=== PATIENT | female | born 1935 | race Hispanic/Latino ===

== ENCOUNTER 2016-10-10 11:16 | Inpatient (IN) | payer MEDICARE, MEDICAID ==
[2016-10-10] MEDS ORDERED: Cefepime 1gm in NS 100ml 1 GM/100 ML BAG IVPB STA (11:57)
--- NOTE | 2016-10-10 12:16 | ED PDOC ---
Arrival/HPI - General Time Seen by Provider: 10/10/16 11:49 Historian: Patient - History of Present Illness Narrative History of Present Illness (Text): 10/10/16 12:18 An 81 year old female, whose past medical history includes diabetes, was advised to come to the emergency department by Dr. Sparks from [facility] for infected wound. Patient reports she is not on antibiotics yet. Patient denies any fever or any other complaints at this time. Symptom Onset: Sudden Symptom Course: Unchanged Activities at Onset: Rest Context: Other ([facility]) Past Medical History - Provider Review Nursing Documentation Reviewed: Yes - Infectious Disease Hx of Infectious Diseases: None - Tetanus Immunization Tetanus Immunization: Unknown - Cardiac Hx Pacemaker: No - Pulmonary Hx Respiratory Disorders: Yes - Neurological Hx Paralysis: No - HEENT Hx HEENT Disorder: Yes Hx Cataracts: Yes (BILATERAL SURGERY) - Renal Hx Renal Disorder: Yes Hx Neurogenic Bladder: Yes - Endocrine/Metabolic Hx Endocrine Disorders: Yes - Hematological/Oncological Hx Blood Transfusions: No Hx Blood Transfusion Reaction: No - Integumentary Hx Dermatological Disorder: Yes (CELLULITIS,LEFT VENOUS STASIS ULCER) Other/Comment: cellulitis left ankle wound, left foot red and +2 edema, foul smelling dng noted to left ankle wound - Musculoskeletal/Rheumatological Hx Musculoskeletal Disorders: Yes - Gastrointestinal Hx Gastrointestinal Disorders: Yes Hx Gastroesophageal Reflux: Yes - Genitourinary/Gynecological Hx Genitourinary Disorders: Yes (URGENCY) - Psychiatric Hx Emotional Abuse: No Hx Physical Abuse: No Hx Substance Use: No - Past Surgical History Past Surgical History: Non-Contributing - Surgical History Other/Comment: LEFT FOOT SURGERY,PICC 01-09-14 - Anesthesia Hx Anesthesia Reactions: No Hx Malignant Hyperthermia: No - Suicidal Assessment Feels Threatened In Home Enviroment: No Family/Social History - Physician Review Nursing Documentation Reviewed: Yes Family/Social History: No Known Family HX Smoking Status: Former Smoker Hx Alcohol Use: No Hx Substance Use: No Hx Substance Use Treatment: No Allergies/Home Meds Allergies/Adverse Reactions: Allergies banana Allergy (Verified 12/06/15 18:49) RASH Influenza Virus Vaccines Allergy (Verified 12/06/15 18:49) RASH kiwi Allergy (Verified 12/06/15 18:49) RASH Penicillins Allergy (Verified 12/06/15 18:49) RASH pneumococcal vaccine Allergy (Verified 12/06/15 18:49) RASH strawberry Allergy (Verified 12/06/15 18:49) RASH Sulfa (Sulfonamide Antibiotics) Allergy (Verified 12/06/15 18:49) RASH tomato Allergy (Verified 12/06/15 18:49) RASH Home Medications: Home Meds Medication Instructions Recorded Confirmed Insulin Lispro Mix 75/25 [HumaLOG 10 units SC ACB 06/15/13 06/28/16 Mix 75/25] Vitamin B Complex/Vit C/Folic 1 tab PO DAILY 08/25/15 06/28/16 [Nephro-Shereen] Insulin Lispro Mix 75/25 [HumaLOG 5 units SC ACD 10/04/15 06/28/16 Mix 75/25] Protein Supplement [Prosource] 30 ml PO BID 10/04/15 06/28/16 Review of Systems - Physician Review All systems were reviewed & negative as marked: Yes - Review of Systems Constitutional: absent: Fevers Respiratory: absent: SOB Cardiovascular: absent: Chest Pain Skin: Ulcer (distal lower leg to mid upper leg) Physical Exam Vital Signs Reviewed: Yes Vital Signs Temp Pulse Resp BP Pulse Ox 10/10/16 11:38 97.6 F 79 18 119/80 98 Temperature: Afebrile Blood Pressure: Normal Pulse: Regular Respiratory Rate: Normal Appearance: Positive for: Well-Appearing, Non-Toxic, Comfortable Pain Distress: None Mental Status: Positive for: Alert and Oriented X 3 - Systems Exam Head: Present: Atraumatic, Normocephalic Pupils: Present: PERRL Extroacular Muscles: Present: EOMI Conjunctiva: Present: Normal Mouth: Present: Moist Mucous Membranes Neck: Present: Normal Range of Motion Respiratory/Chest: Present: Clear to Auscultation, Good Air Exchange. No: Respiratory Distress, Accessory Muscle Use Cardiovascular: Present: Regular Rate and Rhythm, Normal S1, S2. No: Murmurs Abdomen: Present: Normal Bowel Sounds. No: Tenderness, Distention, Peritoneal Signs Back: Present: Normal Inspection Upper Extremity: Present: Normal Inspection. No: Cyanosis, Edema Lower Extremity: Present: Other (large ulcer extending from distal lower leg to mid upper leg). No: Edema Neurological: Present: GCS=15, CN II-XII Intact, Speech Normal Skin: Present: Warm, Dry, Normal Color. No: Rashes Psychiatric: Present: Alert, Oriented x 3, Normal Insight, Normal Concentration Medical Decision Making ED Course and Treatment: 10/10/16 12:13 Impression: An 81 year old female with an infected wound. Plan: -- labs -- Maxipime -- Reassess and disposition Prior Visits: Notes and results from previous visits were reviewed. Patient last reported to the emergency department on 03/27/16 for evaluation of head injury s/p fall at home. Patient was discharged. Progress Notes: Patient's medical records reports wounds Protens and Serratia sensitive to tigecycline 10/10/16 15:[address] lorenzo - Lab Interpretations Lab Results: 10/10/16 11:43 10/10/16 14:00 Lab Results 10/10/16 14:00: Sodium 134, Potassium 4.9, Chloride 105, Carbon Dioxide 23, Anion Gap 11, BUN 45 H, Creatinine 1.1, Est GFR ( Amer) 57, Est GFR (Non- Af Amer) 47, Random Glucose 212 H, Calcium 8.5, Total Bilirubin 0.5, AST 50 H, ALT 30, Alkaline Phosphatase 169 H, Total Protein 7.2, Albumin 3.3, Globulin 4.0 , Albumin/Globulin Ratio 0.8 L 10/10/16 11:43: PT 12.0 H, INR 1.11 H, APTT 26.1 10/10/16 11:43: WBC 7.9, RBC 3.94, Hgb 11.4 L, Hct 35.7 L, MCV 90.6, MCH 28.9, MCHC 31.9, RDW 15.8 H, Plt Count 255, MPV 12.2 H, Gran % 77.2 H, Lymph % (Auto) 15.0 L, [place] % (Auto) 5.9, Eos % (Auto) 1.4 L, Baso % (Auto) 0.5, Gran # 6.12, Lymph # 1.2, [place] # 0.5, Eos # 0.1, Baso # 0.04, ESR 50 H I have reviewed the lab results: Yes - Medication Orders Current Medication Orders: Discontinued Medications Cefepime HCl (Maxipime 1gm) 1 gm in 100 mls @ 100 mls/hr IVPB STAT STA PRN Reason: Protocol Stop: 10/10/16 12:56 Last Admin: 10/10/16 12:31 Dose: 100 mls/hr Tigecycline 50 mg/ Sodium (Chloride) 100 mls @ 100 mls/hr IVPB STAT STA PRN Reason: Protocol Stop: 10/10/16 13:35 Last Admin: 10/10/16 13:57 Dose: 100 mls/hr - Scribe Statement The provider has reviewed the documentation as recorded by the Dione Mario Provider Scribe Attestation: All medical record entries made by the Lizibmariangel were at my direction and personally dictated by me. I have reviewed the chart and agree that the record accurately reflects my personal performance of the history, physical exam, medical decision making, and the department course for this patient. I have also personally directed, reviewed, and agree with the discharge instructions and disposition. Disposition/Present on Arrival - Present on Arrival Any Indicators Present on Arrival: No History of DVT/PE: No History of Uncontrolled Diabetes: No Urinary Catheter: No History Surgical Site Infection Following: None - Disposition Have Diagnosis and Disposition been Completed?: Yes Diagnosis: Cellulitis, Diabetic leg ulcer Disposition: HOSPITALIZED Disposition Time: 02:00 Patient Problems: Current Active Problems Problem Status Onset Cellulitis Acute Diabetic leg ulcer Acute Condition: FAIR
[2016-10-10 12:31] LABS: ADD MANUAL DIFF? NO
[2016-10-10 12:36] LABS: BASO # 0.04 K/mm3 (0.0-2.0); BASO % 0.5 % (0.0-3.0); EOS # 0.1 (0.0-0.7); EOS % 1.4 % (1.5-5.0); GRAN # 6.12 (1.4-6.5); GRAN % 77.2 % (50.0-68.0); HEMATOCRIT 35.7 % (36.0-48.0); LYMPH # 1.2 (1.2-3.4); MEAN CELL VOLUME 90.6 fL (80.0-105.0); MEAN CORPUSCULAR HEMOGLOBIN 28.9 pg (25.0-35.0); MEAN CORPUSCULAR HGB CONC 31.9 g/dl (31.0-37.0); MEAN PLATELET VOLUME 12.2 fl (7.0-11.0); MONO # 0.5 (0.1-0.6); MONO % 5.9 % (1.0-6.0); PLATELET COUNT 255 10^3/uL (120.0-450.0); RED CELL DISTRIBUTION WIDTH 15.8 % (11.5-14.5); WHITE BLOOD COUNT 7.9 10^3/ul (4.5-11.0)
[2016-10-10 12:43] LABS: INR 1.11 (0.93-1.08); PARTIAL THROMBOPLASTIN TIME 26.1 Seconds (23.7-30.8)
[2016-10-10 13:56] LABS: ERYTHROCYTE SEDIMENTATION RATE 50 mm/hr (0.0-20.0)
[2016-10-10 14:29] LABS: ALB/GLOB RATIO 0.8 (1.1-1.8); BILIRUBIN,TOTAL 0.5 mg/dL (0.2-1.3); CALCIUM 8.5 mg/dL (8.4-10.5); POTASSIUM 4.9 mmol/L (3.6-5.0); TOTAL PROTEIN 7.2 g/dL (5.8-8.3)
[2016-10-10] MEDS ORDERED: Heparin25000 units/250ml 1/2NS 25,000 UNITS/250 ML BAG IV PRN (16:05)
[2016-10-10] MEDS: Insulin Lispro (humaLOG) MEDIUM Coverage SC SCH (16:55)
--- NOTE | 2016-10-10 17:03 | CP.PCM.HP ---
<Gwyn Krause - Last Filed: 10/10/16 16:56> History of Present Illness - History of Present Illness History of Present Illness: Internal Medicine H&P for Dr. Lona Krause PGY-1 Internal Medicine CC: LLE ulcer + cellulitis HPI: This is an 81 yo F with PMH of HTN, COPD, DM, AFib/Sick Sinus s/ p pacer on AC, and chronic non-healing LLE vascular ulcer who was sent from [facility] by PMD (Dr. Sparks) for LLE cellulitis found to have Serratia and Proteus spp sensitive to tygacil. Per patient, she has no pain in the affected leg, but also reports that she never has had pain in the leg despite the chronic poorly healing ulcer. She denies sensation of fevers/chills, nausea/ emesis, cough, shortness of breath, chest pain, dysuria/hematuria, constipation/ diarrhea, or altered ambulation. She reports her normal ambulation is either in a wheelchair she moves herself, or with a walker. Denies all other complaints. She is seen weekly (Wednesdays) at the [facility] by Dr. Shan Mckeon (Podiatry). Of note, the patient reports that she is considering pursuing elective BKA of the LLE, stating that she is tired of dealing with the chronic poorly healing ulcer and it's sequella, as it has been plaguing her "forever" (unclear on actual time affected by ulcer other than > 5 years). 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 She denies thoughts of self-harm. PMH: As above PSH: Bilateral cataract removal, Pacer placement, Unspecified prior foot surgeries, Prior surgical wound debridement FHx: Denies SHx: Denies prior tobacco, alcohol, illicits PMD: Dr. Sparks Soup Person: Dr. Shan Mckeon Present on Admission - Present on Admission Any Indicators Present on Admission: No History of DVT/PE: No History of Uncontrolled Diabetes: No Urinary Catheter: No Review of Systems - Constitutional Constitutional: absent: Chills, Fever, Weakness - EENT Eyes: absent: Blurred Vision, Change in Vision, Loss of Vision Ears: absent: Dizziness Nose/Mouth/Throat: absent: Sore Throat, Neck Pain - Cardiovascular Cardiovascular: absent: Chest Pain, Dyspnea, Pain Radiating to Arm/Neck/Jaw, Lightheadedness, Palpitations, Rapid Heart Rate, Syncope - Respiratory Respiratory: absent: Cough, Dyspnea, Pain on Inspiration - Gastrointestinal Gastrointestinal: absent: Abdominal Pain, Constipation, Diarrhea, Nausea, Vomiting - Genitourinary Genitourinary: absent: Difficulty Urinating, Dysuria, Flank Pain, Hematuria - Musculoskeletal Musculoskeletal: Abnormal Gait (baseline alterred gait, hunched 2/2 walker use, now walker/wheelchair dependant). absent: Back Pain, Numbness - Integumentary Additional comments: Non-healing LLE wound with concurrent cellulitis - Neurological Neurological: absent: Disequilibrium, Dizziness, Numbness, Focal Weakness, Loss of Vision, Syncope, Weakness, Other Visual Disturbances - Psychiatric Psychiatric: absent: Anxiety - Endocrine Endocrine: absent: Fatigue, Palpitations Past Patient History - Infectious Disease Hx of Infectious Diseases: None - Tetanus Immunizations Tetanus Immunization: Unknown - Past Medical History & Family History Past Medical History?: Yes - Past Social History Smoking Status: Former Smoker - CARDIAC Hx Pacemaker: No - PULMONARY Hx Respiratory Disorders: Yes - NEUROLOGICAL Hx Paralysis: No - HEENT Hx HEENT Problems: Yes Hx Cataracts: Yes (BILATERAL SURGERY) - RENAL Hx Chronic Kidney Disease: Yes Hx Neurogenic Bladder: Yes - ENDOCRINE/METABOLIC Hx Endocrine Disorders: Yes - HEMATOLOGICAL/ONCOLOGICAL Hx Blood Transfusions: No Hx Blood Transfusion Reaction: No - INTEGUMENTARY Hx Dermatological Problems: Yes (CELLULITIS,LEFT VENOUS STASIS ULCER) Other/Comment: cellulitis left ankle wound, left foot red and +2 edema, foul smelling dng noted to left ankle wound - MUSCULOSKELETAL/RHEUMATOLOGICAL Hx Musculoskeletal Disorders: Yes - GASTROINTESTINAL Hx Gastrointestinal Disorders: Yes Hx Gastroesophageal Reflux: Yes - GENITOURINARY/GYNECOLOGICAL Hx Genitourinary Disorders: Yes (URGENCY) - PSYCHIATRIC Hx Emotional Abuse: No Hx Physical Abuse: No Hx Substance Use: No - SURGICAL HISTORY Other/Comment: LEFT FOOT SURGERY,PICC 01-09-14 - ANESTHESIA Hx Anesthesia Reactions: No Hx Malignant Hyperthermia: No Meds Allergies/Adverse Reactions: Allergies Allergy/AdvReac Type Severity Reaction Status Date / Time banana Allergy RASH Verified 12/06/15 18:49 Influenza Virus Vaccines Allergy RASH Verified 12/06/15 18:49 kiwi Allergy RASH Verified 12/06/15 18:49 Penicillins Allergy RASH Verified 12/06/15 18:49 pneumococcal vaccine Allergy RASH Verified 12/06/15 18:49 strawberry Allergy RASH Verified 12/06/15 18:49 Sulfa (Sulfonamide Allergy RASH Verified 12/06/15 18:49 Antibiotics) tomato Allergy RASH Verified 12/06/15 18:49 Physical Exam - Constitutional Appears: Well, Non-toxic, No Acute Distress - Head Exam Head Exam: ATRAUMATIC, NORMAL INSPECTION, NORMOCEPHALIC - Eye Exam Eye Exam: EOMI, Normal appearance. absent: Conjunctival injection, Scleral icterus Pupil Exam: absent: Irregular, Unequal - ENT Exam ENT Exam: Mucous Membranes Moist - Neck Exam Neck exam: Positive for: Full Rom, Normal Inspection - Respiratory Exam Respiratory Exam: Clear to Auscultation Bilateral, NORMAL BREATHING PATTERN. absent: Accessory Muscle Use, Chest Wall Tenderness, Decreased Breath Sounds, Rales, Rhonchi, Wheezes - Cardiovascular Exam Cardiovascular Exam: Tachycardia (tachycardic to 110's (per bedside monitor) during exam), REGULAR RHYTHM, +S1, +S2. absent: Bradycardia, Diastolic murmur, Irregular Rhythm, JVD, +S4, Systolic Murmur - GI/Abdominal Exam GI & Abdominal Exam: Normal Bowel Sounds, Soft. absent: Diminished Bowel Sounds , Distended, Firm, Hyperactive Bowel Sounds, Hypoactive Bowel Sounds, Rigid, Tenderness - Extremities Exam Additional comments: RLE exam: Unremarkable, poorly palpable dorsalis pedis pulse LLE exam: -Diffuse cellulitis extending from 2-3 cm behind toes to bottom 2/3rd of leg below knee, incompletely circumferential around LLE (2+ inches from posterior midline clear) -No tenderness to palpation, but sensation to palpation intact and equal in both legs -Bandaging from mid foot (dorsal surface) up to midpoint between ankle and knee , some faint yellow drainage through bandaging -wrinkled wax paper appearance of cellulitic skin, waxy appearance of skin above cellulitic area still below knee -palpable warmth from foot, extending past cellulitis area, terminating ~2-3cm below patellar tendon; warmer compared to palpation of identical (non-cellulitic ) sites of RLE -LLE weeping clear fluid at cellulitic area -able to faintly palpate L leg popliteal pulse, unable to palpate any more distal pulses in LLE - Neurological Exam Neurological exam: Alert, Oriented x3 - Psychiatric Exam Psychiatric exam: Normal Affect, Normal Mood - Skin Additional comments: Other than as described in Extremities exam, skin is dry/intact/normal temp on palpation/normal color Results - Vital Signs Recent Vital Signs: Last Vital Signs Temp 97.6 F 10/10/16 11:38 Pulse 78 10/10/16 13:02 Resp 16 10/10/16 13:02 BP 120/82 10/10/16 13:02 Pulse Ox 96 10/10/16 13:02 - Labs Result Diagrams: 10/10/16 11:43 10/10/16 14:00 Assessment & Plan - Assessment and Plan (Free Text) Assessment: This is an 81 yo F with PMH of HTN, COPD, DM, AFib/Sick Sinus s/p pacer on AC, and chronic non-healing LLE vascular ulcer who was sent from [facility] by PMD (Dr. Sparks) for LLE cellulitis found to have Serratia and Proteus spp sensitive to tygacil. She is being admitted for IV abx and possible wound debridement/care. Plan: 1) LLE wound with concurrent cellulitis -Sent from [facility] with cultures + for Serratia and Proteus, sensitive to Tygacil -Tygacil q12 ordered, got x1 dose in ED and 1 dose of Cefepime in ED -ID consulted (Dr. Alvares), appreciate all recs -New wound cultures, blood cultures, lactic acid ordered, f/u -LLE foot, ankle, tibia-fibula, and knee x-rays ordered, want to assess for possible osteo -Wound care ordered -Podiatry (Dr. 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 Patient seen, reviewed, and discussed with attending, Dr. Zamorano. - Date & Time Date: 10/10/16 Time: 15:30 Decision To Admit - Pt Status Changed To: Hospital Disposition Of: Inpatient Admission - Admit Certification Admit to Inpatient:: After my assessment, the patient will require hospitalization for at least two midnights. This is because of the severity of symptoms shown, intensity of services needed, and/or the medical risk in this patient being treated as an outpatient. - . Bed Request Type: Med/Surg <Mary Kay Zamorano - Last Filed: 10/11/16 07:42> Results - Vital Signs Recent Vital Signs: Last Vital Signs Temp 97.8 F 10/10/16 16:00 Pulse 84 10/10/16 19:49 Resp 20 10/11/16 06:00 BP 132/62 10/10/16 19:49 Pulse Ox 97 10/10/16 16:00 - Labs Result Diagrams: 10/11/16 06:30 10/11/16 06:30 Labs: Laboratory Results - last 24 hr 10/10/16 10/11/16 10/11/16 20:20 01:35 06:30 WBC 8.5 RBC 3.72 Hgb 10.2 L Hct 33.1 L MCV 89.0 MCH 27.4 MCHC 30.8 L RDW 16.0 H Plt Count 206 MPV 11.2 H Gran % 71.6 H Lymph % (Auto) 18.3 L [place] % (Auto) 9.1 H Eos % (Auto) 0.6 L Baso % (Auto) 0.4 Gran # 6.12 Lymph # 1.6 [place] # 0.8 H Eos # 0.1 Baso # 0.03 PT 13.4 H INR 1.24 H APTT 148.0 H* Sodium Potassium Chloride Carbon Dioxide Anion Gap BUN Creatinine Est GFR ( Amer) Est GFR (Non-Af Amer) Random Glucose Lactic Acid 1.3 Calcium Phosphorus Magnesium Total Bilirubin AST ALT Alkaline Phosphatase Total Protein Albumin Globulin Albumin/Globulin Ratio 10/11/16 10/11/16 06:30 06:30 WBC RBC Hgb Hct MCV MCH MCHC RDW Plt Count MPV Gran % Lymph % (Auto) [place] % (Auto) Eos % (Auto) Baso % (Auto) Gran # Lymph # [place] # Eos # Baso # PT 13.6 H INR 1.26 H APTT 109.0 H* Sodium 138 Potassium 4.5 Chloride 111 H Carbon Dioxide 23 Anion Gap 9 L BUN 39 H Creatinine 0.9 Est GFR ( Amer) > 60 Est GFR (Non-Af Amer) 60 Random Glucose 118 H Lactic Acid Calcium 7.9 L Phosphorus 4.3 Magnesium 2.0 Total Bilirubin 0.5 AST 34 ALT 32 Alkaline Phosphatase 145 H Total Protein 6.1 Albumin 2.7 L Globulin 3.4 Albumin/Globulin Ratio 0.8 L Attending/Attestation - Attestation I have personally seen and examined this patient.: Yes I have fully participated in the care of the patient.: Yes I have reviewed all pertinent clinical information: Yes Notes (Text): 10/10/16 81 year old female with past medical history of COPD, hypertension, afib, sick sinus syndrome, s/p pacemaker, diabetes and chronic non healing left lower extremity ulcer who was sent from nursing for LLE cellulitis and non-healing ulcer. Wound cultures grew Serratia and Proteus which is sensitive to tygacil. Will continue and request ID and podiatry evaluation. ESR/CRP are elevated. Xrays are ordered. Wound care. Continue with home medications for hypertension and afib, except eliquis which will be switched to heparin drip in case of any planned procedure. Continue with insulin ss for diabetes and lyrica for diabetes neuropathy. Mary Kay Zamorano MD Hospitalist.
[2016-10-10] MEDS ORDERED: PROTEIN SUPPLEMENT PO SCH (18:00)
--- NOTE | 2016-10-10 20:44 | CP.PCM.CON ---
History of Present Illness - History of Present Illness History of Present Illness: Infectious Disease Consultation: October 10, 2016 81 yo female well known to me sent from [facility] for Left lower leg cellulitis. Cultures at [facility] showing Serratia with sensitivities to Tygacil. Patient has had similar episodes in the past. PMHx: gout, COPD, hypertension, diabetes mellitus, hypothyroidism, COPD PSHx: Multiple debridements of the left leg and foot Allergies: PCN, SULFA Social Hx: custodial resident of [facility]. No known tobacco, EtOH, or illicit drug use. Active Medications Tigecycline 50 mg/ Sodium (Chloride) 100 mls @ 100 mls/hr IVPB Q12 KEO PRN Reason: Protocol Stop: 10/10/16 22:59 Heparin Sodium/Sodium Chloride (Heparin 45569 Units/250ml 1/2 Normal Saline) 25 ,000 units in 250 mls @ 14.4 mls/hr IV .[id number] PRN; Protocol; 18 UNITS/KG/HR PRN Reason: ADJUST RATE PER PROTOCOL Last Admin: 10/10/16 19:16 Dose: 18 units/kg/hr, 14.4 mls/hr Sodium Chloride (Sodium Chloride 0.9%) 1,000 mls @ 70 mls/hr IV .[id number] [facility] Insulin Human Lispro (Humalog Med) 0 units SC ACHS KEO PRN Reason: Protocol Last Admin: 10/10/16 16:55 Dose: Not Given Metoprolol Tartrate (Lopressor) 25 mg PO BID [facility] Last Admin: 10/10/16 19:49 Dose: 25 mg Montelukast Sodium (Singulair) 10 mg PO HS [facility] Non-Formulary Medication (Protein Supplement [Prosource]) 30 ml PO BID [facility] Pregabalin (Lyrica) 25 mg PO BID [facility] Last Admin: 10/10/16 19:48 Dose: 25 mg Vitamin B Complex/Vit C/Folic Acid (Nephro-Shereen) 1 tab PO DAILY [facility] Family Hx: none given ROS: no fevers, chills, cough, nausea, vomiting, diarrhea, headaches, dizziness, chest pain, abdominal pain, depression, anxiety, melena, hematura, hematemesis, hematochezia. Left leg swelling and lymphedema. Past Patient History - Infectious Disease Hx of Infectious Diseases: None - Tetanus Immunizations Tetanus Immunization: Unknown - Past Medical History & Family History Past Medical History?: Yes - Past Social History Smoking Status: Former Smoker - CARDIAC Hx Pacemaker: No - PULMONARY Hx Respiratory Disorders: Yes - NEUROLOGICAL Hx Paralysis: No - HEENT Hx HEENT Problems: Yes Hx Cataracts: Yes (BILATERAL SURGERY) - RENAL Hx Chronic Kidney Disease: Yes Hx Neurogenic Bladder: Yes - ENDOCRINE/METABOLIC Hx Endocrine Disorders: Yes - HEMATOLOGICAL/ONCOLOGICAL Hx Blood Transfusions: No Hx Blood Transfusion Reaction: No - INTEGUMENTARY Hx Dermatological Problems: Yes (CELLULITIS,LEFT VENOUS STASIS ULCER) Other/Comment: cellulitis left ankle wound, left foot red and +2 edema, foul smelling dng noted to left ankle wound - MUSCULOSKELETAL/RHEUMATOLOGICAL Hx Musculoskeletal Disorders: Yes - GASTROINTESTINAL Hx Gastrointestinal Disorders: Yes Hx Gastroesophageal Reflux: Yes - GENITOURINARY/GYNECOLOGICAL Hx Genitourinary Disorders: Yes (URGENCY) - PSYCHIATRIC Hx Emotional Abuse: No Hx Physical Abuse: No Hx Substance Use: No - SURGICAL HISTORY Other/Comment: LEFT FOOT SURGERY,PICC 01-09-14 - ANESTHESIA Hx Anesthesia Reactions: No Hx Malignant Hyperthermia: No Meds Allergies/Adverse Reactions: Allergies Allergy/AdvReac Type Severity Reaction Status Date / Time banana Allergy RASH Verified 12/06/15 18:49 Influenza Virus Vaccines Allergy RASH Verified 12/06/15 18:49 kiwi Allergy RASH Verified 12/06/15 18:49 Penicillins Allergy RASH Verified 12/06/15 18:49 pneumococcal vaccine Allergy RASH Verified 12/06/15 18:49 strawberry Allergy RASH Verified 12/06/15 18:49 Sulfa (Sulfonamide Allergy RASH Verified 12/06/15 18:49 Antibiotics) tomato Allergy RASH Verified 12/06/15 18:49 - Medications Medications: Current Medications Tigecycline 50 mg/ Sodium (Chloride) 100 mls @ 100 mls/hr IVPB Q12 KEO PRN Reason: Protocol Stop: 10/10/16 22:59 Heparin Sodium/Sodium Chloride (Heparin 99893 Units/250ml 1/2 Normal Saline) 25 ,000 units in 250 mls @ 14.4 mls/hr IV .[id number] PRN; Protocol; 18 UNITS/KG/HR PRN Reason: ADJUST RATE PER PROTOCOL Last Admin: 10/10/16 19:16 Dose: 18 units/kg/hr, 14.4 mls/hr Sodium Chloride (Sodium Chloride 0.9%) 1,000 mls @ 70 mls/hr IV .[id number] [facility] Insulin Human Lispro (Humalog Med) 0 units SC ACHS [facility] PRN Reason: Protocol Last Admin: 10/10/16 16:55 Dose: Not Given Metoprolol Tartrate (Lopressor) 25 mg PO BID [facility] Last Admin: 10/10/16 19:49 Dose: 25 mg Montelukast Sodium (Singulair) 10 mg PO HS [facility] Non-Formulary Medication (Protein Supplement [Prosource]) 30 ml PO BID [facility] Pregabalin (Lyrica) 25 mg PO BID [facility] Last Admin: 10/10/16 19:48 Dose: 25 mg Vitamin B Complex/Vit C/Folic Acid (Nephro-Shereen) 1 tab PO DAILY [facility] Physical Exam - Constitutional Appears: Non-toxic, No Acute Distress, Chronically Ill - Head Exam Head Exam: ATRAUMATIC, NORMOCEPHALIC - Eye Exam Eye Exam: EOMI, PERRL Pupil Exam: NORMAL ACCOMODATION, PERRL - ENT Exam ENT Exam: Mucous Membranes Moist, Normal External Ear Exam, TM's Normal Bilaterally - Neck Exam Neck exam: Positive for: Full Rom, Normal Inspection - Respiratory Exam Respiratory Exam: Clear to Auscultation Bilateral, NORMAL BREATHING PATTERN. absent: Rales, Rhonchi, Wheezes - Cardiovascular Exam Cardiovascular Exam: Tachycardia, REGULAR RHYTHM, RRR, +S1, +S2 - GI/Abdominal Exam GI & Abdominal Exam: Normal Bowel Sounds, Soft. absent: Distended, Tenderness - Extremities Exam Extremities exam: Positive for: joint swelling, pedal edema Additional comments: Left lower leg cellulitis from toes to just about mid romeo... nearly circumferential - Back Exam Back exam: FULL ROM, NORMAL INSPECTION - Neurological Exam Neurological exam: Alert, CN II-XII Intact, Oriented x3 - Psychiatric Exam Psychiatric exam: Normal Affect, Normal Mood - Skin Skin Exam: Intact, Normal Color Results - Vital Signs Recent Vital Signs: Last Vital Signs Temp 97.8 F 10/10/16 16:00 Pulse 84 10/10/16 19:49 Resp 20 10/10/16 16:00 BP 132/62 10/10/16 19:49 Pulse Ox 97 10/10/16 16:00 - Labs Result Diagrams: 10/10/16 11:43 10/10/16 14:00 Assessment & Plan - Assessment and Plan (Free Text) Assessment: 81 yo female with left lower leg cellulitis with multiple drug allergies. She has chronic ulcerations of the left lower leg with drainage. Chronic venous stasis. Started on Tigecycline for now. Supportive care. Local wound care. Thank you for allowing me to participate in the care of the patient, we will follow with you.
[2016-10-10] MEDS: Sodium Chloride 0.9% 1,000 ML IV SCH (23:15)
[2016-10-11 02:46] LABS: INR 1.24 (0.93-1.08)
[2016-10-11 06:49] LABS: ADD MANUAL DIFF? NO
[2016-10-11 07:16] LABS: INR 1.26 (0.93-1.08)
[2016-10-11 07:17] LABS: ALB/GLOB RATIO 0.8 (1.1-1.8); ALKALINE PHOSPHATASE 145 U/L (38-133); ALT/SGPT 32 U/L (7-56); AST/SGOT 34 U/L (15-39); BASO # 0.03 K/mm3 (0.0-2.0); BASO % 0.4 % (0.0-3.0); BILIRUBIN,TOTAL 0.5 mg/dL (0.2-1.3); BLOOD UREA NITROGEN 39 mg/dL (7-21); CALCIUM 7.9 mg/dL (8.4-10.5); CARBON DIOXIDE 23 mmol/L (21-33); CHLORIDE 111 mmol/L (98-107); EOS # 0.1 (0.0-0.7); EOS % 0.6 % (1.5-5.0); GFR AFRICAN-AMERICAN > 60; GLUCOSE,RANDOM 118 mg/dL (70-110); GRAN # 6.12 (1.4-6.5); GRAN % 71.6 % (50.0-68.0); HEMATOCRIT 33.1 % (36.0-48.0); LYMPH # 1.6 (1.2-3.4); LYMPH % 18.3 % (22.0-35.0); MEAN CORPUSCULAR HEMOGLOBIN 27.4 pg (25.0-35.0); MEAN CORPUSCULAR HGB CONC 30.8 g/dl (31.0-37.0); MEAN PLATELET VOLUME 11.2 fl (7.0-11.0); MONO # 0.8 (0.1-0.6); MONO % 9.1 % (1.0-6.0); PHOSPHOROUS 4.3 mg/dL (2.5-4.5); PLATELET COUNT 206 10^3/uL (120.0-450.0); POTASSIUM 4.5 mmol/L (3.6-5.0); SODIUM 138 mmol/L (132-148); TOTAL PROTEIN 6.1 g/dL (5.8-8.3); WHITE BLOOD COUNT 8.5 10^3/ul (4.5-11.0)
[2016-10-11] MEDS: Insulin Lispro (humaLOG) MEDIUM Coverage SC SCH ×4 (07:45→23:40)
--- NOTE | 2016-10-11 10:12 | CP.PCM.CON ---
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 Pt sent from [facility] by PMD (Dr. Sparks) for left leg cellulitis found to have Serratia and Proteus spp sensitive to tygacil when chronic ulcerations cultured at facility. Per patient, she has no pain in the affected leg, but also reports that she never has had pain in the leg despite the chronic poorly healing ulcer. She is seen weekly weekly at the [facility] by remote inpatient coder , Dr. Shan Mckeon for chronic left leg ulcers. She reports her normal ambulation is either in a wheelchair she moves herself, or with a walker. Denies all other complaints. Patient reports that she is considering pursuing elective BKA of the LLE, stating that she is tired of dealing with the chronic poorly healing ulcer and recurrent soft tssue infections secondary to the wounds. She denies recent fevers/chills, nausea/emesis, cough, shortness of breath, chest pain, dysuria/hematuria, and constipation/diarrhea. Past Patient History - Infectious Disease Hx of Infectious Diseases: None - Tetanus Immunizations Tetanus Immunization: Unknown - Past Medical History & Family History Past Medical History?: Yes - Past Social History Smoking Status: Never Smoked - CARDIAC Hx Pacemaker: No - PULMONARY Hx Respiratory Disorders: Yes - NEUROLOGICAL Hx Dementia: Yes - HEENT Hx HEENT Problems: Yes Hx Cataracts: Yes (BILATERAL SURGERY) - RENAL Hx Chronic Kidney Disease: Yes Hx Neurogenic Bladder: Yes - ENDOCRINE/METABOLIC Hx Endocrine Disorders: Yes - HEMATOLOGICAL/ONCOLOGICAL Hx Blood Disorders: Yes Hx Anemia: Yes - INTEGUMENTARY Hx Dermatological Problems: Yes (CELLULITIS,LEFT VENOUS STASIS ULCER) Other/Comment: cellulitis left ankle wound, left foot red and +2 edema, foul smelling dng noted to left ankle wound - MUSCULOSKELETAL/RHEUMATOLOGICAL Hx Falls: No - GASTROINTESTINAL Hx Gastrointestinal Disorders: Yes Hx Gastroesophageal Reflux: Yes - GENITOURINARY/GYNECOLOGICAL Hx Genitourinary Disorders: Yes (URGENCY) - PSYCHIATRIC Hx Substance Use: No - SURGICAL HISTORY Other/Comment: LEFT FOOT SURGERY,PICC 9-7-14 - ANESTHESIA Hx Anesthesia Reactions: No Hx Malignant Hyperthermia: No Meds Allergies/Adverse Reactions: Allergies Allergy/AdvReac Type Severity Reaction Status Date / Time banana Allergy RASH Verified 12/06/15 18:49 Influenza Virus Vaccines Allergy RASH Verified 12/06/15 18:49 kiwi Allergy RASH Verified 12/06/15 18:49 Penicillins Allergy RASH Verified 12/06/15 18:49 pneumococcal vaccine Allergy RASH Verified 12/06/15 18:49 strawberry Allergy RASH Verified 12/06/15 18:49 Sulfa (Sulfonamide Allergy RASH Verified 12/06/15 18:49 Antibiotics) tomato Allergy RASH Verified 12/06/15 18:49 - Medications Medications: Current Medications Heparin Sodium/Sodium Chloride (Heparin 09131 Units/250ml 1/2 Normal Saline) 25 ,000 units in 250 mls @ 14.4 mls/hr IV .[id number] PRN; Protocol; 18 UNITS/KG/HR PRN Reason: ADJUST RATE PER PROTOCOL Last Titration: 10/11/16 04:00 Dose: 15.5 units/kg/hr, 12.4 mls/hr Sodium Chloride (Sodium Chloride 0.9%) 1,000 mls @ 70 mls/hr IV .[id number] [facility] Last Admin: 10/10/16 23:15 Dose: 70 mls/hr Tigecycline 50 mg/ Sodium (Chloride) 100 mls @ 100 mls/hr IVPB Q12 KEO PRN Reason: Protocol Stop: 10/17/16 22:01 Last Admin: 10/10/16 23:17 Dose: 100 mls/hr Insulin Human Lispro (Humalog Med) 0 units SC ACHS KEO PRN Reason: Protocol Last Admin: 10/10/16 16:55 Dose: Not Given Metoprolol Tartrate (Lopressor) 25 mg PO BID [facility] Last Admin: 10/10/16 19:49 Dose: 25 mg Montelukast Sodium (Singulair) 10 mg PO HS [facility] Last Admin: 10/10/16 23:15 Dose: 10 mg Non-Formulary Medication (Protein Supplement [Prosource]) 30 ml PO BID [facility] Pregabalin (Lyrica) 25 mg PO BID [facility] Last Admin: 10/10/16 19:48 Dose: 25 mg Vitamin B Complex/Vit C/Folic Acid (Nephro-Shereen) 1 tab PO DAILY [facility] Physical Exam - Constitutional Appears: Well, Non-toxic, No Acute Distress - Extremities Exam Additional comments: Left lower extremity focused exam: Dressing intact, serous strikethrough to outer dressing. VASC- DP and PT pulses weakly palpable-palpable, capillary refill < 5 sec to digits x 5, mild +1 edema noted to leg and dorsum of foot, NEURO-Gross pedal sensation is diminished DERM- Dorsal foot wound and anterior ankle wound partil thickness ulceration measuring approximately 12 x 20 cm with mixed fibo-granular base. with mildly hyperkeratotic, blanched margins, no undermining, with serous active drainage. Dior-wound skin s fully epithelialized though not fully pigmented. Moderate mal- odor noted. - Neurological Exam Neurological exam: Alert, Oriented x3 - Psychiatric Exam Psychiatric exam: Normal Affect, Normal Mood Results - Vital Signs Recent Vital Signs: Last Vital Signs Temp 98 F 10/11/16 08:25 Pulse 77 10/11/16 08:25 Resp 18 10/11/16 08:25 BP 114/51 L 10/11/16 08:25 Pulse Ox 100 10/11/16 08:25 - Labs Result Diagrams: 10/11/16 06:30 10/11/16 06:30 Labs: Laboratory Results - last 24 hr 10/10/16 10/11/16 10/11/16 20:20 01:35 06:30 WBC 8.5 RBC 3.72 Hgb 10.2 L Hct 33.1 L MCV 89.0 MCH 27.4 MCHC 30.8 L RDW 16.0 H Plt Count 206 MPV 11.2 H Gran % 71.6 H Lymph % (Auto) 18.3 L [place] % (Auto) 9.1 H Eos % (Auto) 0.6 L Baso % (Auto) 0.4 Gran # 6.12 Lymph # 1.6 [place] # 0.8 H Eos # 0.1 Baso # 0.03 PT 13.4 H INR 1.24 H APTT 148.0 H* Sodium Potassium Chloride Carbon Dioxide Anion Gap BUN Creatinine Est GFR ( Amer) Est GFR (Non-Af Amer) Random Glucose Lactic Acid 1.3 Calcium Phosphorus Magnesium Total Bilirubin AST ALT Alkaline Phosphatase Total Protein Albumin Globulin Albumin/Globulin Ratio 10/11/16 10/11/16 06:30 06:30 WBC RBC Hgb Hct MCV MCH MCHC RDW Plt Count MPV Gran % Lymph % (Auto) [place] % (Auto) Eos % (Auto) Baso % (Auto) Gran # Lymph # [place] # Eos # Baso # PT 13.6 H INR 1.26 H APTT 109.0 H* Sodium 138 Potassium 4.5 Chloride 111 H Carbon Dioxide 23 Anion Gap 9 L BUN 39 H Creatinine 0.9 Est GFR ( Amer) > 60 Est GFR (Non-Af Amer) 60 Random Glucose 118 H Lactic Acid Calcium 7.9 L Phosphorus 4.3 Magnesium 2.0 Total Bilirubin 0.5 AST 34 ALT 32 Alkaline Phosphatase 145 H Total Protein 6.1 Albumin 2.7 L Globulin 3.4 Albumin/Globulin Ratio 0.8 L Assessment & Plan - Assessment and Plan (Free Text) Assessment: 81 year old female with Left leg partial thickness ulcer graded secondary to chronic venous insufficiency (Adlal Grade 2) with leg cellulits. Plan: Pt evaluated and treated. Charts, labs, and vitals reviewed. Afebrile, absent leukocytosis. Discussed with attending Dr. Mckeon, who was made aware of information and endorsed the following plan. -Elevated ESR and CRP assessed. ESR is at 50mm/hr decreased from prior admissions. Wound culture taken, results pending. -Radiographs reviewed: shoe soft tissue swelling at level of ankle, absent soft tissue emphysema. Pedal bone osteopenia noted. No signs of acute or chronic osteomyelitis. Continue with IV abx per ID. Dressed wound w/ betadine, xeroform, DSD, & KRYSTIN. Continue [facility] local wound care daily. Pt to be evaluated to asses improvement of cellulitis. If no major regression of cellulitis, potential surgical debridement indicated, for Sunday 10/15 AM at earliest. -Discussed with pt wound care benefits at this time as there is no immediate need a radical treatment as a BKA of left leg at this time. If pt wishes to pursue this electively, recommendation made to discuss amputation planning with outpatient remote inpatient coder and wound care attending Dr. Mckeon in [facility] upon discharge. -Medical and cardiac clearance appreciated should pt need to go to OR for debridement. Podiatry will follow patient while inhouse - Date & Time Date: 10/11/16 Time: 11:00
[2016-10-11] MEDS: PROTEIN SUPPLEMENT PO SCH ×2 (10:19→18:19)
--- NOTE | 2016-10-11 12:45 | RAD ---
PROCEDURE: Left Foot Radiographs. HISTORY: extensive cellulitis, assess for possible osteo COMPARISON: None. FINDINGS: BONES: Severe osteopenia. No focal destruction to suggest osteomyelitis JOINTS: Normal. SOFT TISSUES: Normal. OTHER FINDINGS: None. IMPRESSION: Severe osteopenia. No evidence of osteomyelitis
[2016-10-11] MEDS: Multivitamin Vitamin B Complex (Nephro-Vite) Tab PO SCH (12:47)
--- NOTE | 2016-10-11 12:47 | RAD ---
PROCEDURE: Left Ankle Radiographs. HISTORY: extensive cellulitis, assess for possible osteo COMPARISON: None FINDINGS: BONES: There is bony fusion of the distal fibula and tibia and talus. There are 2 transverse screws. JOINTS: Fusion of the ankle joint SOFT TISSUES: Normal. OTHER FINDINGS: None. IMPRESSION: No acute findings
--- NOTE | 2016-10-11 12:48 | RAD ---
PROCEDURE: Radiographs of the left tibia and fibula. HISTORY: extensive cellulitis, assess for possible osteo COMPARISON: None available. TECHNIQUE: Frontal and lateral views obtained. FINDINGS: BONES: No fracture or destructive lesion. JOINT SPACES: Unremarkable. OTHER FINDINGS: Fusion of the ankle IMPRESSION: Unremarkable radiographs of the left tibia and fibula.
--- NOTE | 2016-10-11 12:57 | RAD ---
PROCEDURE: Left Knee Radiographs. HISTORY: Pain. COMPARISON: None. FINDINGS: BONES: Normal. No fracture. JOINTS: There is narrowing of the patellofemoral joint JOINT EFFUSION: None. OTHER FINDINGS: None. IMPRESSION: Narrowing of the patellofemoral joint. No evidence of osteomyelitis
[2016-10-11 15:15] VITALS: BMI 31.6
[2016-10-11] MEDS: Heparin25000 units/250ml 1/2NS 25,000 UNITS/250 ML BAG IV PRN (15:35)
[2016-10-11] MEDS: Sodium Chloride 0.9% 1,000 ML IV SCH (15:43)
--- NOTE | 2016-10-11 16:31 | CP.PCM.PN ---
<Gwyn Krause - Last Filed: 10/11/16 16:27> Subjective - Date & Time of Evaluation Date of Evaluation: 10/11/16 Time of Evaluation: 07:55 - Subjective Subjective: Internal Medicine Progress Note for Dr. Zamorano Patient seen and examined at bedside. No acute events overnight. Resting comfortably in bed. Continues to have no pain in affect leg at ulcer site or from cellulitis. Only complaint is wanting to go home. Denies fevers/chills, nausea, emesis, shortness of breath, chest pain. Objective - Vital Signs/Intake and Output Vital Signs (last 24 hours): Temp Pulse Resp BP Pulse Ox 98 F 77 18 114/51 L 100 10/11/16 08:25 10/11/16 12:44 10/11/16 08:25 10/11/16 12:44 10/11/16 08:25 Intake and Output: 10/11/16 10/11/16 06:59 18:59 Intake Total 880 Output Total 400 Balance 480 - Medications Medications: Current Medications Sodium Chloride (Sodium Chloride 0.9%) 1,000 mls @ 70 mls/hr IV .[id number] [facility] Last Admin: 10/11/16 15:43 Dose: 70 mls/hr Tigecycline 50 mg/ Sodium (Chloride) 100 mls @ 100 mls/hr IVPB Q12 [facility] PRN Reason: Protocol Stop: 10/17/16 22:01 Last Admin: 10/11/16 12:56 Dose: 100 mls/hr Heparin Sodium/Sodium Chloride (Heparin 78010 Units/250ml 1/2 Normal Saline) 25 ,000 units in 250 mls @ 12.337 mls/hr IV .[id number] PRN; Protocol; 18 UNITS/KG/HR PRN Reason: ADJUST RATE PER PROTOCOL Last Admin: 10/11/16 15:35 Dose: 18 units/kg/hr, 12.337 mls/hr Insulin Human Lispro (Humalog Med) 0 units SC ACHS [facility] PRN Reason: Protocol Last Admin: 10/11/16 12:46 Dose: 1 units Metoprolol Tartrate (Lopressor) 25 mg PO BID [facility] Last Admin: 10/11/16 12:44 Dose: 25 mg Montelukast Sodium (Singulair) 10 mg PO HS [facility] Last Admin: 10/10/16 23:15 Dose: 10 mg Non-Formulary Medication (Protein Supplement [Prosource]) 30 ml PO BID [facility] Pregabalin (Lyrica) 25 mg PO BID [facility] Last Admin: 10/11/16 12:44 Dose: 25 mg Vitamin B Complex/Vit C/Folic Acid (Nephro-Shereen) 1 tab PO DAILY [facility] Last Admin: 10/11/16 12:47 Dose: 1 tab - Labs Labs: 10/11/16 06:30 10/11/16 06:30 PT 13.6 Seconds (9.9-11.8) H 10/11/16 06:30 INR 1.26 (0.93-1.08) H 10/11/16 06:30 APTT 137.5 Seconds (23.7-30.8) H* 10/11/16 12:25 - Additional Findings Additional findings: - Constitutional Appears: Well, Non-toxic, No Acute Distress - Head Exam Head Exam: ATRAUMATIC, NORMAL INSPECTION, NORMOCEPHALIC - Eye Exam Eye Exam: EOMI, Normal appearance. absent: Conjunctival injection, Scleral icterus Pupil Exam: absent: Irregular, Unequal - ENT Exam ENT Exam: Mucous Membranes Moist - Neck Exam Neck exam: Positive for: Full Rom, Normal Inspection - Respiratory Exam Respiratory Exam: Clear to Auscultation Bilateral, NORMAL BREATHING PATTERN. absent: Accessory Muscle Use, Chest Wall Tenderness, Decreased Breath Sounds, Rales, Rhonchi, Wheezes - Cardiovascular Exam Cardiovascular Exam: REGULAR RATE & RHYTHM, +S1, +S2. absent: Tachycardia, Bradycardia, Diastolic murmur, Irregular Rhythm, JVD, +S4, Systolic Murmur - GI/Abdominal Exam GI & Abdominal Exam: Normal Bowel Sounds, Soft. absent: Diminished Bowel Sounds , Distended, Firm, Hyperactive Bowel Sounds, Hypoactive Bowel Sounds, Rigid, Tenderness - Extremities Exam RLE exam: Unremarkable, poorly palpable dorsalis pedis pulse LLE exam: -Diffuse cellulitis extending from 2-3 cm behind toes to bottom 2/3rd of leg below knee, incompletely circumferential around LLE (2+ inches from posterior midline clear) -No tenderness to palpation, but sensation to palpation intact and equal in both legs -Bandaging from mid foot (dorsal surface) up to midpoint between ankle and knee , some faint yellow drainage through bandaging -wrinkled wax paper appearance of cellulitic skin, waxy appearance of skin above cellulitic area still below knee -palpable warmth from foot, extending past cellulitis area, terminating ~2-3cm below patellar tendon; warmer compared to palpation of identical (non-cellulitic ) sites of RLE -LLE weeping clear fluid at cellulitic area -able to faintly palpate L leg popliteal pulse, unable to palpate any more distal pulses in LLE - Neurological Exam Neurological exam: Alert, Oriented x3 - Psychiatric Exam Psychiatric exam: Normal Affect, Normal Mood - Skin Other than as described in Extremities exam, skin is dry/intact/normal temp on palpation/normal color Assessment and Plan - Assessment and Plan (Free Text) Assessment: This is an 81 yo F with PMH of HTN, COPD, DM, AFib/Sick Sinus s/p pacer on AC, and chronic non-healing LLE vascular ulcer who was sent from [facility] by PMD (Dr. Sparks) for LLE cellulitis found to have Serratia and Proteus spp sensitive to tygacil. Pending possible OR debridement per Podiatry. Plan: 1) LLE wound with concurrent cellulitis -Sent from [facility] with cultures + for Serratia and Proteus, sensitive to Tygacil -Tygacil q12 ordered as per ID -ID consulted (Dr. Alvares), appreciate all recs -New wound cultures, blood cultures, lactic acid ordered, f/u -LLE foot, ankle, tibia-fibula, and knee x-rays ordered, want to assess for possible osteo -Wound care ordered -Podiatry (Dr. Miguel Mckeon) consulted, appreciate all recs; Medically management , possible OR debridement (10/15 at the earliest) but needs medical and cardio clearance prior -WBCs 8.5 today and afebrile, does not meet SIRS criteria -As per Podiatry, BKA not indicated at this time; if patient still elects to pursue BKA, needs to follow up outpt and arrange through her primary hotel registration clerk -Continue heparin drip given vascular disease and hx of AFib on AC, hold home Eliquis 2) HTN -continue home Metoprolol -gentle hydration with NS 70cc/hr 3) DM with neuropathy -holding home insulin in favor of Med-ISS Lispro, fingersticks ACHS -Heart-healthy consistent carb diet -Continue home lyrica for DM-neuropathy 4) COPD -continue home Montelukast 5) AFib/Hx Sick sinus syndrome -Hx of pacer -Rate stable in ED at 70's-80's, sinus on bedside monitor -Holding home Elequis for AC given possible pending procedures, continue heparin drip for AC Dispo: Med/Surg, on IV Tygacil, pending possible OR debridement as per Podiatry FEN: Heart-healthy consistent carb, NS 70cc/hr IVF Access: Peripheral IV Consults: Podiatry, ID Ppx: Protonix for GI, Heparin drip covers for DVT Code Status: DNR as per paperwork from [facility] Patient seen, reviewed, and discussed with attending, Dr. Zamorano. <Mary Kay Zamorano - Last Filed: 10/11/16 16:56> Objective - Vital Signs/Intake and Output Vital Signs (last 24 hours): Temp Pulse Resp BP Pulse Ox 98 F 77 18 114/51 L 100 10/11/16 08:25 10/11/16 12:44 10/11/16 08:25 10/11/16 12:44 10/11/16 08:25 Intake and Output: 10/11/16 10/11/16 06:59 18:59 Intake Total 880 Output Total 400 Balance 480 - Medications Medications: Current Medications Sodium Chloride (Sodium Chloride 0.9%) 1,000 mls @ 70 mls/hr IV .[id number] [facility] Last Admin: 10/11/16 15:43 Dose: 70 mls/hr Tigecycline 50 mg/ Sodium (Chloride) 100 mls @ 100 mls/hr IVPB Q12 [facility] PRN Reason: Protocol Stop: 10/17/16 22:01 Last Admin: 10/11/16 12:56 Dose: 100 mls/hr Heparin Sodium/Sodium Chloride (Heparin 35431 Units/250ml 1/2 Normal Saline) 25 ,000 units in 250 mls @ 12.337 mls/hr IV .[id number] PRN; Protocol; 18 UNITS/KG/HR PRN Reason: ADJUST RATE PER PROTOCOL Last Admin: 10/11/16 15:35 Dose: 18 units/kg/hr, 12.337 mls/hr Insulin Human Lispro (Humalog Med) 0 units SC ACHS [facility] PRN Reason: Protocol Last Admin: 10/11/16 12:46 Dose: 1 units Metoprolol Tartrate (Lopressor) 25 mg PO BID [facility] Last Admin: 10/11/16 12:44 Dose: 25 mg Montelukast Sodium (Singulair) 10 mg PO HS [facility] Last Admin: 10/10/16 23:15 Dose: 10 mg Non-Formulary Medication (Protein Supplement [Prosource]) 30 ml PO BID [facility] Pregabalin (Lyrica) 25 mg PO BID [facility] Last Admin: 10/11/16 12:44 Dose: 25 mg Vitamin B Complex/Vit C/Folic Acid (Nephro-Shereen) 1 tab PO DAILY [facility] Last Admin: 10/11/16 12:47 Dose: 1 tab - Labs Labs: 10/11/16 06:30 10/11/16 06:30 PT 13.6 Seconds (9.9-11.8) H 10/11/16 06:30 INR 1.26 (0.93-1.08) H 10/11/16 06:30 APTT 137.5 Seconds (23.7-30.8) H* 10/11/16 12:25 Attending/Attestation - Attestation I have personally seen and examined this patient.: Yes I have fully participated in the care of the patient.: Yes I have reviewed all pertinent clinical information, including history, physical exam and plan: Yes Notes (Text): 10/11/16 16:53 81 year old female with past medical history of COPD, hypertension, afib, sick sinus syndrome, s/p pacemaker, diabetes and chronic non healing left lower extremity ulcer who was sent from nursing for LLE cellulitis and non-healing ulcer. Wound cultures grew Serratia and Proteus which is sensitive to tygacil. ESR/CRP were elevated. Xrays were reviewed. Will monitor for response on iv antibiotics and wound care over the weekend. If no response then plan for possible OR debridement on Friday as per podiatry. In that case will need cardiology evaluation for cardiac clearance prior to procedure. Continue with home medications for hypertension and afib, except eliquis is switched to heparin drip in case of any planned procedure. Continue with insulin ss for diabetes and lyrica for diabetes neuropathy. Mary Kay Zamorano MD Hospitalist.
--- NOTE | 2016-10-11 16:50 | CP.PCM.PN ---
Subjective - Date & Time of Evaluation Date of Evaluation: 10/11/16 Time of Evaluation: 15:30 - Subjective Subjective: Infectious Disease Follow Up: October 11, 2016 81 yo female well known to me sent from [facility] for Left lower leg cellulitis. Cultures at [facility] showing Serratia with sensitivities to Tygacil. Patient has had similar episodes in the past. Awaiting repeat wound cultures to return. Objective - Vital Signs/Intake and Output Vital Signs (last 24 hours): Temp Pulse Resp BP Pulse Ox 98 F 77 18 114/51 L 100 10/11/16 08:25 10/11/16 12:44 10/11/16 08:25 10/11/16 12:44 10/11/16 08:25 Intake and Output: 10/11/16 10/11/16 06:59 18:59 Intake Total 880 Output Total 400 Balance 480 - Medications Medications: Current Medications Sodium Chloride (Sodium Chloride 0.9%) 1,000 mls @ 70 mls/hr IV .[id number] [facility] Last Admin: 10/11/16 15:43 Dose: 70 mls/hr Tigecycline 50 mg/ Sodium (Chloride) 100 mls @ 100 mls/hr IVPB Q12 [facility] PRN Reason: Protocol Stop: 10/17/16 22:01 Last Admin: 10/11/16 12:56 Dose: 100 mls/hr Heparin Sodium/Sodium Chloride (Heparin 99186 Units/250ml 1/2 Normal Saline) 25 ,000 units in 250 mls @ 12.337 mls/hr IV .[id number] PRN; Protocol; 18 UNITS/KG/HR PRN Reason: ADJUST RATE PER PROTOCOL Last Admin: 10/11/16 15:35 Dose: 18 units/kg/hr, 12.337 mls/hr Insulin Human Lispro (Humalog Med) 0 units SC ACHS [facility] PRN Reason: Protocol Last Admin: 10/11/16 12:46 Dose: 1 units Metoprolol Tartrate (Lopressor) 25 mg PO BID [facility] Last Admin: 10/11/16 12:44 Dose: 25 mg Montelukast Sodium (Singulair) 10 mg PO HS [facility] Last Admin: 10/10/16 23:15 Dose: 10 mg Non-Formulary Medication (Protein Supplement [Prosource]) 30 ml PO BID [facility] Pregabalin (Lyrica) 25 mg PO BID [facility] Last Admin: 10/11/16 12:44 Dose: 25 mg Vitamin B Complex/Vit C/Folic Acid (Nephro-Shereen) 1 tab PO DAILY [facility] Last Admin: 10/11/16 12:47 Dose: 1 tab - Labs Labs: 10/11/16 06:30 10/11/16 06:30 PT 13.6 Seconds (9.9-11.8) H 10/11/16 06:30 INR 1.26 (0.93-1.08) H 10/11/16 06:30 APTT 137.5 Seconds (23.7-30.8) H* 10/11/16 12:25 - Constitutional Appears: Non-toxic, No Acute Distress, Chronically Ill - Head Exam Head Exam: ATRAUMATIC, NORMOCEPHALIC - Eye Exam Eye Exam: EOMI, PERRL Pupil Exam: NORMAL ACCOMODATION, PERRL - ENT Exam ENT Exam: Mucous Membranes Moist, Normal External Ear Exam, TM's Normal Bilaterally - Neck Exam Neck Exam: Full ROM, Normal Inspection - Respiratory Exam Respiratory Exam: Clear to Ausculation Bilateral, NORMAL BREATHING PATTERN. absent: Rales, Rhonchi, Wheezes - Cardiovascular Exam Cardiovascular Exam: Tachycardia, REGULAR RHYTHM, RRR, +S1, +S2 - GI/Abdominal Exam GI & Abdominal Exam: Soft, Normal Bowel Sounds. absent: Distended, Tenderness - Extremities Exam Extremities Exam: Joint Swelling, Pedal Edema Additional comments: Left lower leg cellulitis from toes to just about mid romeo... nearly circumferential - Neurological Exam Neurological Exam: Alert, Awake, CN II-XII Intact, Oriented x3 - Psychiatric Exam Psychiatric exam: Normal Affect, Normal Mood - Skin Skin Exam: Intact, Normal Color Assessment and Plan - Assessment and Plan (Free Text) Assessment: 81 yo female with left lower leg cellulitis with multiple drug allergies. She has chronic ulcerations of the left lower leg with drainage. Chronic venous stasis. Started on Tigecycline for now. Supportive care. Local wound care. Awaiting repeat wound cultures. Still with drainage. Thank you for allowing me to participate in the care of the patient, we will follow with you.
[2016-10-11] MEDS: Oxycodone/Acetaminophen 5/325 mg Tab PO PRN (22:36)
--- NOTE | 2016-10-12 07:53 | CP.PCM.PN ---
Subjective - Date & Time of Evaluation Date of Evaluation: 10/12/16 Time of Evaluation: 07:30 - Subjective Subjective: This is an 81 y/o female who was seen and evaluated at bedside this morning for follow-up on Left leg ulceration with concomitant cellulitis. Patient was resting comfortably, in NAD. She denies any F/C/N/V/SOB/CP. Left lower extremity dressing noted to be intact with moderate serous strike-through. No pedal complaints reported at this time. Objective - Vital Signs/Intake and Output Vital Signs (last 24 hours): Temp Pulse Resp BP Pulse Ox 97.9 F 84 20 160/72 H 98 10/12/16 07:30 10/12/16 07:30 10/12/16 07:30 10/12/16 07:30 10/12/16 07:30 Intake and Output: 10/12/16 10/12/16 06:59 18:59 Intake Total 2210 Balance 2210 - Medications Medications: Current Medications Sodium Chloride (Sodium Chloride 0.9%) 1,000 mls @ 70 mls/hr IV .[id number] [facility] Last Admin: 10/11/16 15:43 Dose: 70 mls/hr Tigecycline 50 mg/ Sodium (Chloride) 100 mls @ 100 mls/hr IVPB Q12 [facility] PRN Reason: Protocol Stop: 10/17/16 22:01 Last Admin: 10/12/16 03:34 Dose: 100 mls/hr Heparin Sodium/Sodium Chloride (Heparin 09779 Units/250ml 1/2 Normal Saline) 25 ,000 units in 250 mls @ 12.337 mls/hr IV .[id number] PRN; Protocol; 18 UNITS/KG/HR PRN Reason: ADJUST RATE PER PROTOCOL Last Titration: 10/11/16 23:41 Dose: 15.02 units/kg/hr, 10.3 mls/hr Insulin Human Lispro (Humalog Med) 0 units SC ACHS [facility] PRN Reason: Protocol Last Admin: 10/11/16 23:40 Dose: Not Given Metoprolol Tartrate (Lopressor) 25 mg PO BID [facility] Last Admin: 10/11/16 18:18 Dose: Not Given Montelukast Sodium (Singulair) 10 mg PO HS [facility] Last Admin: 10/11/16 22:36 Dose: 10 mg Non-Formulary Medication (Protein Supplement [Prosource]) 30 ml PO BID [facility] Last Admin: 10/11/16 18:19 Dose: Not Given Oxycodone/Acetaminophen (Percocet 5/325 Mg Tab) 1 tab PO Q6H [facility] PRN Reason: Pain, moderate (4-7) Stop: 10/14/16 20:35 Last Admin: 10/11/16 22:36 Dose: 1 tab Pregabalin (Lyrica) 25 mg PO BID [facility] Last Admin: 10/11/16 18:37 Dose: 25 mg Vitamin B Complex/Vit C/Folic Acid (Nephro-Shereen) 1 tab PO DAILY [facility] Last Admin: 10/11/16 12:47 Dose: 1 tab - Labs Labs: 10/11/16 06:30 10/11/16 06:30 PT 13.6 Seconds (9.9-11.8) H 10/11/16 06:30 INR 1.26 (0.93-1.08) H 10/11/16 06:30 APTT 111.6 Seconds (23.7-30.8) H* 10/11/16 21:37 - Constitutional Appears: Non-toxic, No Acute Distress - Neurological Exam Neurological Exam: Alert, Awake, Oriented x3 - Additional Findings Additional findings: Left lower extremity focused exam: VASC- DP and PT pulses weakly palpable-palpable, capillary refill < 5 sec to digits x 5, mild +1 edema noted to leg and dorsum of foot, NEURO-Gross pedal sensation is diminished DERM- Dorsal foot wound and anterior ankle wound partial thickness ulceration measuring approximately 12 x 20 cm with mixed fibo-granular base. with mildly hyperkeratotic, blanched margins, no undermining, with serous active drainage. Dior-wound skin is fully epithelialized though not fully pigmented. Moderate mal -odor noted. Assessment and Plan - Assessment and Plan (Free Text) Assessment: 81 year old female with Left leg partial thickness ulcer graded secondary to chronic venous insufficiency (Dalal Grade 2) with leg cellulits. Plan: Patient seen and evaluated Labs and vitals reviewed: afebrile, no leukocytosis; elevated ESR Left leg re-dressed with betadine, xeroform, DSD and loosely-applied KRYSTIN bandage Left leg wound culture pending Patient to continue receiving IV antibiotics, as per ID recommendations- currently on IV Tigecycline We will continue to monitor the progression/improvement of cellulitis. If no major regression of cellulitis, potential surgical debridement indicated, for Sunday 10/15 AM at earliest. Discussed patient with attending, Dr. Mckeon Podiatry to follow while patient remains in house
[2016-10-12 07:58] LABS: ADD MANUAL DIFF? NO
[2016-10-12 08:01] LABS: BASO # 0.03 K/mm3 (0.0-2.0); BASO % 0.5 % (0.0-3.0); EOS # 0.2 (0.0-0.7); EOS % 3.4 % (1.5-5.0); GRAN # 3.86 (1.4-6.5); GRAN % 65.7 % (50.0-68.0); HEMATOCRIT 31.5 % (36.0-48.0); LYMPH # 1.2 (1.2-3.4); MEAN CELL VOLUME 89.7 fL (80.0-105.0); MEAN CORPUSCULAR HEMOGLOBIN 28.2 pg (25.0-35.0); MEAN CORPUSCULAR HGB CONC 31.4 g/dl (31.0-37.0); MEAN PLATELET VOLUME 11.4 fl (7.0-11.0); MONO # 0.6 (0.1-0.6); MONO % 9.4 % (1.0-6.0); PLATELET COUNT 180 10^3/uL (120.0-450.0); RED CELL DISTRIBUTION WIDTH 16.1 % (11.5-14.5); WHITE BLOOD COUNT 5.9 10^3/ul (4.5-11.0)
[2016-10-12 08:10] LABS: ALB/GLOB RATIO 0.7 (1.1-1.8); ALKALINE PHOSPHATASE 131 U/L (38-133); ALT/SGPT 28 U/L (7-56); AST/SGOT 26 U/L (15-39); BILIRUBIN,TOTAL 0.5 mg/dL (0.2-1.3); BLOOD UREA NITROGEN 34 mg/dL (7-21); CALCIUM 8.1 mg/dL (8.4-10.5); CARBON DIOXIDE 21 mmol/L (21-33); CHLORIDE 114 mmol/L (98-107); GFR AFRICAN-AMERICAN > 60; GLUCOSE,RANDOM 90 mg/dL (70-110); MAGNESIUM 1.9 mg/dL (1.7-2.2); PHOSPHOROUS 4.1 mg/dL (2.5-4.5); POTASSIUM 3.8 mmol/L (3.6-5.0); SODIUM 139 mmol/L (132-148); TOTAL PROTEIN 5.8 g/dL (5.8-8.3)
[2016-10-12 08:22] LABS: INR 1.24 (0.93-1.08)
[2016-10-12 08:24] LABS: PARTIAL THROMBOPLASTIN TIME 84.7 Seconds (23.7-30.8)
[2016-10-12] MEDS: Multivitamin Vitamin B Complex (Nephro-Vite) Tab PO SCH (09:30)
[2016-10-12] MEDS: Insulin Lispro (humaLOG) MEDIUM Coverage SC SCH ×4 (11:59→22:05)
[2016-10-12] MEDS: PROTEIN SUPPLEMENT PO SCH ×2 (12:16→19:51)
[2016-10-12] MEDS: Sodium Chloride 0.9% 1,000 ML IV SCH (12:16)
--- NOTE | 2016-10-12 17:29 | CP.PCM.PN ---
<Gwyn Krause - Last Filed: 10/12/16 17:24> Subjective - Date & Time of Evaluation Date of Evaluation: 10/12/16 Time of Evaluation: 08:15 - Subjective Subjective: Internal Medicine Progress Note for Dr. Newman Patient seen and examined at bedside. No acute events overnight. Resting comfortably in bed. Continues to have no pain in affect leg at ulcer site or from cellulitis. Only complaint is wanting to go home. Denies fevers/chills, nausea, emesis, shortness of breath, chest pain. Objective - Vital Signs/Intake and Output Vital Signs (last 24 hours): Temp Pulse Resp BP Pulse Ox 97.9 F 81 20 132/65 98 10/12/16 07:30 10/12/16 09:30 10/12/16 07:30 10/12/16 09:30 10/12/16 07:30 Intake and Output: 10/12/16 10/12/16 06:59 18:59 Intake Total 2210 100 Balance 2210 100 - Medications Medications: Current Medications Sodium Chloride (Sodium Chloride 0.9%) 1,000 mls @ 70 mls/hr IV .[id number] [facility] Last Admin: 10/12/16 12:16 Dose: 70 mls/hr Tigecycline 50 mg/ Sodium (Chloride) 100 mls @ 100 mls/hr IVPB Q12 [facility] PRN Reason: Protocol Stop: 10/17/16 22:01 Last Admin: 10/12/16 09:29 Dose: 100 mls/hr Heparin Sodium/Sodium Chloride (Heparin 72859 Units/250ml 1/2 Normal Saline) 25 ,000 units in 250 mls @ 12.337 mls/hr IV .[id number] PRN; Protocol; 18 UNITS/KG/HR PRN Reason: ADJUST RATE PER PROTOCOL Last Titration: 10/12/16 13:36 Dose: 11.02 units/kg/hr, 7.553 mls/hr Insulin Human Lispro (Humalog Med) 0 units SC ACHS [facility] PRN Reason: Protocol Last Admin: 10/12/16 11:59 Dose: 1 units Metoprolol Tartrate (Lopressor) 25 mg PO BID [facility] Last Admin: 10/12/16 09:30 Dose: 25 mg Montelukast Sodium (Singulair) 10 mg PO HS [facility] Last Admin: 10/11/16 22:36 Dose: 10 mg Non-Formulary Medication (Protein Supplement [Prosource]) 30 ml PO BID [facility] Last Admin: 10/12/16 12:16 Dose: Not Given Oxycodone/Acetaminophen (Percocet 5/325 Mg Tab) 1 tab PO Q6H PRN PRN Reason: Pain, moderate (4-7) Stop: 10/14/16 20:35 Last Admin: 10/11/16 22:36 Dose: 1 tab Pregabalin (Lyrica) 25 mg PO BID [facility] Last Admin: 10/12/16 09:30 Dose: 25 mg Vitamin B Complex/Vit C/Folic Acid (Nephro-Shereen) 1 tab PO DAILY [facility] Last Admin: 10/12/16 09:30 Dose: 1 tab - Labs Labs: 10/12/16 07:54 10/12/16 07:54 PT 13.4 Seconds (9.9-11.8) H 10/12/16 07:54 INR 1.24 (0.93-1.08) H 10/12/16 07:54 APTT 82.2 Seconds (23.7-30.8) H* 10/12/16 12:00 - Additional Findings Additional findings: - Constitutional Appears: Well, Non-toxic, No Acute Distress - Head Exam Head Exam: ATRAUMATIC, NORMAL INSPECTION, NORMOCEPHALIC - Eye Exam Eye Exam: EOMI, Normal appearance. absent: Conjunctival injection, Scleral icterus Pupil Exam: absent: Irregular, Unequal - ENT Exam ENT Exam: Mucous Membranes Moist - Neck Exam Neck exam: Positive for: Full Rom, Normal Inspection - Respiratory Exam Respiratory Exam: Clear to Auscultation Bilateral, NORMAL BREATHING PATTERN. absent: Accessory Muscle Use, Chest Wall Tenderness, Decreased Breath Sounds, Rales, Rhonchi, Wheezes - Cardiovascular Exam Cardiovascular Exam: REGULAR RATE & RHYTHM, +S1, +S2. absent: Tachycardia, Bradycardia, Diastolic murmur, Irregular Rhythm, JVD, +S4, Systolic Murmur - GI/Abdominal Exam GI & Abdominal Exam: Normal Bowel Sounds, Soft. absent: Diminished Bowel Sounds , Distended, Firm, Hyperactive Bowel Sounds, Hypoactive Bowel Sounds, Rigid, Tenderness - Extremities Exam RLE exam: Bandaging on lateral aspect of R heel, poorly palpable dorsalis pedis pulse LLE exam: -Diffuse cellulitis between foot and knee of LLE, foot portion has receded to under bandaging, extends up to mid romeo (improved from prior exam) -No tenderness to palpation, but sensation to palpation intact and equal in both legs -Bandaging from mid foot (dorsal surface) up to midpoint between ankle and knee , no drainage through bandaging -wrinkled wax paper appearance of cellulitic skin, waxy appearance of skin above cellulitic area still below knee -palpable warmth from foot, along areas of clearly cellulitic skin -able to faintly palpate L leg popliteal pulse, unable to palpate any more distal pulses in LLE - Neurological Exam Neurological exam: Alert, Oriented x3 - Psychiatric Exam Psychiatric exam: Normal Affect, Normal Mood - Skin Other than as described in Extremities exam, skin is dry/intact/normal temp on palpation/normal color Assessment and Plan - Assessment and Plan (Free Text) Assessment: This is an 81 yo F with PMH of HTN, COPD, DM, AFib/Sick Sinus s/p pacer on AC, and chronic non-healing LLE vascular ulcer who was sent from [facility] by PMD (Dr. Sparks) for LLE cellulitis found to have Serratia and Proteus spp sensitive to tygacil. Pending possible debridement per Podiatry. Plan: 1) LLE wound with concurrent cellulitis -Sent from [facility] with cultures + for Serratia and Proteus, sensitive to Tygacil -Tygacil q12 ordered as per ID -ID consulted (Dr. Alvares), appreciate all recs -New wound cultures, blood cultures, lactic acid ordered, f/u -LLE foot, ankle, tibia-fibula, and knee x-rays ordered, want to assess for possible osteo -Wound care ordered -Podiatry (Dr. Miguel Mckeon) consulted, appreciate all recs; Dr. Mckeon to see Friday for possible bedside debridement Friday (10/14/16); if too extensive for bedside debridement, then will need OR debridement. -Remains afebrile and without leukocytosis -As per Podiatry, BKA not indicated at this time; if patient still elects to pursue BKA, needs to follow up outpt and arrange through her primary bunch maker -Holding home Eliquis pending possible debridement, will resume post-procedure prior to discharge when cleared by Podiatry 2) HTN -continue home Metoprolol -gentle hydration with NS 70cc/hr 3) DM with neuropathy -holding home insulin in favor of Med-ISS Lispro, fingersticks ACHS -Heart-healthy consistent carb diet -Continue home lyrica for DM-neuropathy 4) COPD -continue home Montelukast 5) AFib/Hx Sick sinus syndrome -Hx of pacer -Rate stable in ED at 70's-80's, same on charted vitals for last 24 houts -Holding home Elequis for AC given possible pending procedures, continue heparin drip for AC, will restart home Eliquis post-procedure and continue on discharge Dispo: Med/Surg, on IV Tygacil, pending debridement (bedside vs OR) as per Podiatry FEN: Heart-healthy consistent carb, NS 70cc/hr IVF Access: Peripheral IV Consults: Podiatry, ID Ppx: Protonix for GI, Heparin drip covers for DVT Code Status: DNR as per paperwork from [facility] Patient seen, reviewed, and discussed with attending, Dr. Newman. <Tomer Newman - Last Filed: 10/12/16 22:06> Objective - Vital Signs/Intake and Output Vital Signs (last 24 hours): Temp Pulse Resp BP Pulse Ox 98.3 F 66 20 138/60 96 10/12/16 16:00 10/12/16 16:00 10/12/16 16:00 10/12/16 16:00 10/12/16 16:00 Intake and Output: 10/12/16 10/13/16 18:59 06:59 Intake Total 100 120 Balance 100 120 - Medications Medications: Current Medications Sodium Chloride (Sodium Chloride 0.9%) 1,000 mls @ 70 mls/hr IV .[id number] [facility] Last Admin: 10/12/16 12:16 Dose: 70 mls/hr Tigecycline 50 mg/ Sodium (Chloride) 100 mls @ 100 mls/hr IVPB Q12 [facility] PRN Reason: Protocol Stop: 10/17/16 22:01 Last Admin: 10/12/16 09:29 Dose: 100 mls/hr Heparin Sodium/Sodium Chloride (Heparin 04346 Units/250ml 1/2 Normal Saline) 25 ,000 units in 250 mls @ 12.337 mls/hr IV .[id number] PRN; Protocol; 18 UNITS/KG/HR PRN Reason: ADJUST RATE PER PROTOCOL Last Titration: 10/12/16 13:36 Dose: 11.02 units/kg/hr, 7.553 mls/hr Insulin Human Lispro (Humalog Med) 0 units SC ACHS [facility] PRN Reason: Protocol Last Admin: 10/12/16 19:51 Dose: Not Given Metoprolol Tartrate (Lopressor) 25 mg PO BID [facility] Last Admin: 10/12/16 17:25 Dose: 25 mg Montelukast Sodium (Singulair) 10 mg PO HS [facility] Last Admin: 10/11/16 22:36 Dose: 10 mg Non-Formulary Medication (Protein Supplement [Prosource]) 30 ml PO BID [facility] Last Admin: 10/12/16 19:51 Dose: Not Given Oxycodone/Acetaminophen (Percocet 5/325 Mg Tab) 1 tab PO Q6H PRN PRN Reason: Pain, moderate (4-7) Stop: 10/14/16 20:35 Last Admin: 10/11/16 22:36 Dose: 1 tab Pregabalin (Lyrica) 25 mg PO BID [facility] Last Admin: 10/12/16 17:25 Dose: 25 mg Vitamin B Complex/Vit C/Folic Acid (Nephro-Shereen) 1 tab PO DAILY [facility] Last Admin: 10/12/16 09:30 Dose: 1 tab - Labs Labs: 10/12/16 07:54 10/12/16 07:54 PT 13.4 Seconds (9.9-11.8) H 10/12/16 07:54 INR 1.24 (0.93-1.08) H 10/12/16 07:54 APTT 57.0 Seconds (23.7-30.8) H 10/12/16 17:30 Attending/Attestation - Attestation I have personally seen and examined this patient.: Yes I have fully participated in the care of the patient.: Yes I have reviewed all pertinent clinical information, including history, physical exam and plan: Yes Notes (Text): 10/12/16 22:04 Patient seen and examined at bedside.Labs, vitas, orders and notes reviewed. Undergoing daily wound care with podiatry. Continue IV antibiotics. ID follow up appreciated. She denies any new complaints and is anxious to go back to [facility]. Case discussed with and we will decide between bedside debridemenet versus OR debridement on Friday morning. Wound is less purulent and weeping and if it continues to improve then she may be discharged post bedside debridement on Friday. Continue IV Heparin in the interim for AC. Agree with the plan outlined by the resident
--- NOTE | 2016-10-12 22:09 | CP.PCM.PN ---
Subjective - Date & Time of Evaluation Date of Evaluation: 10/12/16 Time of Evaluation: 20:30 - Subjective Subjective: Infectious Disease Follow Up: October 12, 2016 81 yo female well known to me sent from [facility] for Left lower leg cellulitis. Cultures at [facility] showing Serratia with sensitivities to Tygacil. Patient has had similar episodes in the past. Awaiting repeat wound cultures to return... showing moderate gram negative rods. Objective - Vital Signs/Intake and Output Vital Signs (last 24 hours): Temp Pulse Resp BP Pulse Ox 98.3 F 66 20 138/60 96 10/12/16 16:00 10/12/16 16:00 10/12/16 16:00 10/12/16 16:00 10/12/16 16:00 Intake and Output: 10/12/16 10/13/16 18:59 06:59 Intake Total 100 120 Balance 100 120 - Medications Medications: Current Medications Sodium Chloride (Sodium Chloride 0.9%) 1,000 mls @ 70 mls/hr IV .[id number] [facility] Last Admin: 10/12/16 12:16 Dose: 70 mls/hr Tigecycline 50 mg/ Sodium (Chloride) 100 mls @ 100 mls/hr IVPB Q12 [facility] PRN Reason: Protocol Stop: 10/17/16 22:01 Last Admin: 10/12/16 09:29 Dose: 100 mls/hr Heparin Sodium/Sodium Chloride (Heparin 22739 Units/250ml 1/2 Normal Saline) 25 ,000 units in 250 mls @ 12.337 mls/hr IV .[id number] PRN; Protocol; 18 UNITS/KG/HR PRN Reason: ADJUST RATE PER PROTOCOL Last Titration: 10/12/16 13:36 Dose: 11.02 units/kg/hr, 7.553 mls/hr Insulin Human Lispro (Humalog Med) 0 units SC ACHS [facility] PRN Reason: Protocol Last Admin: 10/12/16 19:51 Dose: Not Given Metoprolol Tartrate (Lopressor) 25 mg PO BID [facility] Last Admin: 10/12/16 17:25 Dose: 25 mg Montelukast Sodium (Singulair) 10 mg PO HS [facility] Last Admin: 10/11/16 22:36 Dose: 10 mg Non-Formulary Medication (Protein Supplement [Prosource]) 30 ml PO BID [facility] Last Admin: 10/12/16 19:51 Dose: Not Given Oxycodone/Acetaminophen (Percocet 5/325 Mg Tab) 1 tab PO Q6H PRN PRN Reason: Pain, moderate (4-7) Stop: 10/14/16 20:35 Last Admin: 10/11/16 22:36 Dose: 1 tab Pregabalin (Lyrica) 25 mg PO BID [facility] Last Admin: 10/12/16 17:25 Dose: 25 mg Vitamin B Complex/Vit C/Folic Acid (Nephro-Shereen) 1 tab PO DAILY [facility] Last Admin: 10/12/16 09:30 Dose: 1 tab - Labs Labs: 10/12/16 07:54 10/12/16 07:54 PT 13.4 Seconds (9.9-11.8) H 10/12/16 07:54 INR 1.24 (0.93-1.08) H 10/12/16 07:54 APTT 57.0 Seconds (23.7-30.8) H 10/12/16 17:30 - Constitutional Appears: Non-toxic, No Acute Distress, Chronically Ill - Head Exam Head Exam: ATRAUMATIC, NORMOCEPHALIC - Eye Exam Eye Exam: EOMI, PERRL Pupil Exam: NORMAL ACCOMODATION, PERRL - ENT Exam ENT Exam: Mucous Membranes Moist, Normal External Ear Exam, TM's Normal Bilaterally - Respiratory Exam Respiratory Exam: Clear to Ausculation Bilateral, NORMAL BREATHING PATTERN. absent: Rales, Rhonchi, Wheezes - Cardiovascular Exam Cardiovascular Exam: Tachycardia, +S1, +S2 - GI/Abdominal Exam GI & Abdominal Exam: Soft, Normal Bowel Sounds. absent: Distended, Tenderness - Extremities Exam Extremities Exam: Joint Swelling, Pedal Edema Additional comments: Left lower leg cellulitis from toes to just about mid romeo... nearly circumferential - Neurological Exam Neurological Exam: Alert, Awake, CN II-XII Intact, Oriented x3 - Psychiatric Exam Psychiatric exam: Normal Affect, Normal Mood - Skin Skin Exam: Intact, Normal Color Assessment and Plan - Assessment and Plan (Free Text) Assessment: 81 yo female with left lower leg cellulitis with multiple drug allergies. She has chronic ulcerations of the left lower leg with drainage. Chronic venous stasis. Continued on Tigecycline for now. Supportive care. Local wound care. Awaiting repeat wound cultures... showing moderate gram negative rods. Still with drainage. Thank you for allowing me to participate in the care of the patient, we will follow with you.
[2016-10-12] MEDS: Oxycodone/Acetaminophen 5/325 mg Tab PO PRN (22:11)
[2016-10-12] MEDS: Heparin25000 units/250ml 1/2NS 25,000 UNITS/250 ML BAG IV PRN (22:36)
[2016-10-13 07:30] LABS: ADD MANUAL DIFF? NO
[2016-10-13 07:35] LABS: BASO # 0.03 K/mm3 (0.0-2.0); BASO % 0.5 % (0.0-3.0); EOS # 0.2 (0.0-0.7); EOS % 4.1 % (1.5-5.0); GRAN # 3.57 (1.4-6.5); GRAN % 64.1 % (50.0-68.0); HEMATOCRIT 31.6 % (36.0-48.0); LYMPH # 1.2 (1.2-3.4); LYMPH % 21.2 % (22.0-35.0); MEAN CELL VOLUME 89.5 fL (80.0-105.0); MEAN CORPUSCULAR HEMOGLOBIN 27.8 pg (25.0-35.0); MEAN PLATELET VOLUME 11.3 fl (7.0-11.0); MONO # 0.6 (0.1-0.6); MONO % 10.1 % (1.0-6.0); PLATELET COUNT 198 10^3/uL (120.0-450.0); RED CELL DISTRIBUTION WIDTH 15.9 % (11.5-14.5); WHITE BLOOD COUNT 5.6 10^3/ul (4.5-11.0)
[2016-10-13 07:46] LABS: INR 1.22 (0.93-1.08); PARTIAL THROMBOPLASTIN TIME 62.4 Seconds (23.7-30.8)
[2016-10-13 07:57] LABS: ALB/GLOB RATIO 0.7 (1.1-1.8); ALKALINE PHOSPHATASE 143 U/L (38-133); ALT/SGPT 32 U/L (7-56); AST/SGOT 25 U/L (15-39); BILIRUBIN,TOTAL 0.5 mg/dL (0.2-1.3); BLOOD UREA NITROGEN 30 mg/dL (7-21); CARBON DIOXIDE 19 mmol/L (21-33); CHLORIDE 115 mmol/L (95-110); GFR AFRICAN-AMERICAN > 60; GLUCOSE,RANDOM 86 mg/dL (70-110); MAGNESIUM 1.7 mg/dL (1.7-2.2); POTASSIUM 3.9 mmol/L (3.6-5.0); SODIUM 141 mmol/L (132-148); TOTAL PROTEIN 5.8 g/dL (5.8-8.3)
--- NOTE | 2016-10-13 08:26 | CP.PCM.PN ---
Subjective - Date & Time of Evaluation Date of Evaluation: 10/13/16 Time of Evaluation: 08:15 - Subjective Subjective: Patient was seen and evaluated at bedside this morning for follow-up on Left leg ulceration with concomitant cellulitis. Patient was resting comfortably, in NAD. She denies any F/C/N/V/SOB/CP. Left lower extremity dressing noted to be intact with moderate serous strike-through. No pedal complaints reported at this time. Her only complaint is that she has been experiencing some mild coughing due to her seasonal allergies. Objective - Vital Signs/Intake and Output Vital Signs (last 24 hours): Temp Pulse Resp BP Pulse Ox 982 F H 89 22 159/94 H 93 L 10/13/16 07:18 10/13/16 07:18 10/13/16 07:18 10/13/16 07:18 10/13/16 07:18 Intake and Output: 10/13/16 10/13/16 06:59 18:59 Intake Total 1180 Balance 1180 - Medications Medications: Current Medications Sodium Chloride (Sodium Chloride 0.9%) 1,000 mls @ 70 mls/hr IV .[id number] [facility] Last Admin: 10/12/16 12:16 Dose: 70 mls/hr Tigecycline 50 mg/ Sodium (Chloride) 100 mls @ 100 mls/hr IVPB Q12 [facility] PRN Reason: Protocol Stop: 10/17/16 22:01 Last Admin: 10/12/16 22:08 Dose: 100 mls/hr Heparin Sodium/Sodium Chloride (Heparin 26079 Units/250ml 1/2 Normal Saline) 25 ,000 units in 250 mls @ 12.337 mls/hr IV .[id number] PRN; Protocol; 18 UNITS/KG/HR PRN Reason: ADJUST RATE PER PROTOCOL Last Admin: 10/12/16 22:36 Dose: 11.02 units/kg/hr, 7.553 mls/hr Insulin Human Lispro (Humalog Med) 0 units SC ACHS [facility] PRN Reason: Protocol Last Admin: 10/12/16 22:05 Dose: Not Given Metoprolol Tartrate (Lopressor) 25 mg PO BID [facility] Last Admin: 10/12/16 17:25 Dose: 25 mg Montelukast Sodium (Singulair) 10 mg PO HS [facility] Last Admin: 10/12/16 22:08 Dose: 10 mg Non-Formulary Medication (Protein Supplement [Prosource]) 30 ml PO BID [facility] Last Admin: 10/12/16 19:51 Dose: Not Given Oxycodone/Acetaminophen (Percocet 5/325 Mg Tab) 1 tab PO Q6H PRN PRN Reason: Pain, moderate (4-7) Stop: 10/14/16 20:35 Last Admin: 10/12/16 22:11 Dose: 1 tab Pregabalin (Lyrica) 25 mg PO BID [facility] Last Admin: 10/12/16 17:25 Dose: 25 mg Vitamin B Complex/Vit C/Folic Acid (Nephro-Shereen) 1 tab PO DAILY [facility] Last Admin: 10/12/16 09:30 Dose: 1 tab - Labs Labs: 10/13/16 07:28 10/13/16 07:28 PT 13.2 Seconds (9.9-11.8) H 10/13/16 07:28 INR 1.22 (0.93-1.08) H 10/13/16 07:28 APTT 62.4 Seconds (23.7-30.8) H 10/13/16 07:28 - Constitutional Appears: Non-toxic, No Acute Distress - Neurological Exam Neurological Exam: Alert, Awake, Oriented x3 - Psychiatric Exam Psychiatric exam: Normal Affect, Normal Mood - Additional Findings Additional findings: Left lower extremity focused exam: VASC- DP and PT pulses weakly palpable-palpable, capillary refill < 5 sec to digits x 5, mild +1 edema noted to leg and dorsum of foot, NEURO-Gross pedal sensation is diminished DERM- Dorsal foot wound and anterior ankle wound partial thickness ulceration measuring approximately 12 x 20 cm with mixed fibo-granular base. with mildly hyperkeratotic, blanched margins, no undermining, with serous active drainage. Dior-wound skin is fully epithelialized though not fully pigmented. Moderate mal -odor noted. Assessment and Plan - Assessment and Plan (Free Text) Assessment: 81 year old female with Left leg partial thickness ulcer graded secondary to chronic venous insufficiency; Left leg cellulitis, improving. Plan: Patient seen and evaluated Labs and vitals reviewed: afebrile, no leukocytosis; elevated ESR Left leg re-dressed with betadine, xeroform, DSD and loosely-applied KRYSTIN bandage Left leg wound culture- prelim results showing moderate gram neg rods; final would cx pending Patient to continue receiving IV antibiotics, as per ID recommendations- currently on IV Tigecycline We will continue to monitor the progression/improvement of cellulitis. If no major regression of cellulitis, potential surgical debridement indicated, for Sunday 10/15 AM at earliest. Discussed patient with attending, Dr. Mckeon Podiatry to follow while patient remains in house
[2016-10-13] MEDS: Multivitamin Vitamin B Complex (Nephro-Vite) Tab PO SCH (10:26)
[2016-10-13] MEDS: Insulin Lispro (humaLOG) MEDIUM Coverage SC SCH ×4 (10:26→22:11)
[2016-10-13] MEDS: PROTEIN SUPPLEMENT PO SCH (10:27)
--- NOTE | 2016-10-13 12:57 | CP.PCM.PN ---
<Aubrey Nieto - Last Filed: 10/13/16 12:59> Subjective - Date & Time of Evaluation Date of Evaluation: 10/13/16 Time of Evaluation: 12:55 - Subjective Subjective: Medicine progress note. Attending: Dr. Newman Pt seen and examined at bedside. No acute distress. No events overnight. Possible debridement this week. No complaints. Denies fevers, chills, vomiting, diarrhea, cp, sob. Objective - Vital Signs/Intake and Output Vital Signs (last 24 hours): Temp Pulse Resp BP Pulse Ox 982 F H 89 22 159/94 H 93 L 10/13/16 07:18 10/13/16 10:26 10/13/16 07:18 10/13/16 10:26 10/13/16 07:18 Intake and Output: 10/13/16 10/13/16 06:59 18:59 Intake Total 1180 Balance 1180 - Medications Medications: Current Medications Sodium Chloride (Sodium Chloride 0.9%) 1,000 mls @ 70 mls/hr IV .[id number] [facility] Last Admin: 10/12/16 12:16 Dose: 70 mls/hr Tigecycline 50 mg/ Sodium (Chloride) 100 mls @ 100 mls/hr IVPB Q12 [facility] PRN Reason: Protocol Stop: 10/17/16 22:01 Last Admin: 10/13/16 10:25 Dose: 100 mls/hr Heparin Sodium/Sodium Chloride (Heparin 08575 Units/250ml 1/2 Normal Saline) 25 ,000 units in 250 mls @ 12.337 mls/hr IV .[id number] PRN; Protocol; 18 UNITS/KG/HR PRN Reason: ADJUST RATE PER PROTOCOL Last Admin: 10/12/16 22:36 Dose: 11.02 units/kg/hr, 7.553 mls/hr Insulin Human Lispro (Humalog Med) 0 units SC ACHS [facility] PRN Reason: Protocol Last Admin: 10/13/16 12:46 Dose: 1 units Metoprolol Tartrate (Lopressor) 25 mg PO BID [facility] Last Admin: 10/13/16 10:26 Dose: 25 mg Montelukast Sodium (Singulair) 10 mg PO HS [facility] Last Admin: 10/12/16 22:08 Dose: 10 mg Non-Formulary Medication (Protein Supplement [Prosource]) 30 ml PO BID [facility] Last Admin: 10/13/16 10:27 Dose: Not Given Oxycodone/Acetaminophen (Percocet 5/325 Mg Tab) 1 tab PO Q6H PRN PRN Reason: Pain, moderate (4-7) Stop: 10/14/16 20:35 Last Admin: 10/12/16 22:11 Dose: 1 tab Pregabalin (Lyrica) 25 mg PO BID [facility] Last Admin: 10/13/16 10:26 Dose: 25 mg Vitamin B Complex/Vit C/Folic Acid (Nephro-Shereen) 1 tab PO DAILY [facility] Last Admin: 10/13/16 10:26 Dose: 1 tab - Labs Labs: 10/13/16 07:28 10/13/16 07:28 PT 13.2 Seconds (9.9-11.8) H 10/13/16 07:28 INR 1.22 (0.93-1.08) H 10/13/16 07:28 APTT 62.4 Seconds (23.7-30.8) H 10/13/16 07:28 - Constitutional Appears: Non-toxic, No Acute Distress - Head Exam Head Exam: ATRAUMATIC, NORMAL INSPECTION, NORMOCEPHALIC - Eye Exam Eye Exam: EOMI - ENT Exam ENT Exam: Mucous Membranes Moist - Neck Exam Neck Exam: Full ROM, Normal Inspection - Respiratory Exam Respiratory Exam: NORMAL BREATHING PATTERN. absent: Respiratory Distress - Cardiovascular Exam Cardiovascular Exam: +S1, +S2 - GI/Abdominal Exam GI & Abdominal Exam: Soft, Normal Bowel Sounds. absent: Tenderness - Extremities Exam Extremities Exam: absent: Full ROM, Normal Inspection Additional comments: Dressing to left ext- clean, dry, intact. No tenderness to palpation, but sensation to palpation intact and equal in both legs - Back Exam Back Exam: NORMAL INSPECTION - Neurological Exam Neurological Exam: Alert, Awake, Oriented x3 - Psychiatric Exam Psychiatric exam: Normal Affect, Normal Mood - Skin Skin Exam: Dry, Intact, Normal Color, Warm Assessment and Plan - Assessment and Plan (Free Text) Assessment: This is an 81 yo female with past medical hx of HTN, COPD, DM, AFib/Sick Sinus s /p pacer on anti coagulation, and chronic non-healing LLE vascular ulcer who was sent from [facility] by PMD (Dr. Mutterperl) for LLE cellulitis found to have Serratia and Proteus spp sensitive to tygacil. Pending possible debridement per Podiatry. 1) LLE wound with concurrent cellulitis -Sent from [facility] with cultures + for Serratia and Proteus, sensitive to Tygacil -Tygacil q12 ordered as per ID -ID consulted (Dr. Alvares), appreciate all recs -blood cultures negative -wound prelim gram neg rods -left foot x ray shows osteopenia -knee and tibia x rays negative -Wound care ordered -Podiatry (Dr. Miguel Mckeon) consulted, appreciate all recs; Dr. Mckeon to see Friday for possible bedside debridement Friday (10/14/16); if too extensive for bedside debridement, then will need OR debridement. -Remains afebrile and without leukocytosis -As per Podiatry, BKA not indicated at this time; if patient still elects to pursue BKA, needs to follow up outpt and arrange through her primary dental financial coordinator -Holding home Eliquis pending possible debridement, will resume post-procedure prior to discharge when cleared by Podiatry 2) HTN -continue home Metoprolol -gentle hydration with NS 70cc/hr 3) DM with neuropathy -holding home insulin in favor of Med-ISS Lispro, fingersticks ACHS -Heart-healthy consistent carb diet -Continue home lyrica for DM-neuropathy 4) COPD -continue home Montelukast 10 daily 5) AFib/Hx Sick sinus syndrome -Hx of pacer -Holding home Elequis for AC given possible pending procedures, continue heparin drip for AC, will restart home Eliquis post-procedure and continue on discharge 6) GI/DVT heparin drip protonix daily discussed with Dr. Newman <Tomer Newman - Last Filed: 10/13/16 14:04> Objective - Vital Signs/Intake and Output Vital Signs (last 24 hours): Temp Pulse Resp BP Pulse Ox 982 F H 89 22 159/94 H 93 L 10/13/16 07:18 10/13/16 10:26 10/13/16 07:18 10/13/16 10:26 10/13/16 07:18 Intake and Output: 10/13/16 10/13/16 06:59 18:59 Intake Total 1180 Balance 1180 - Medications Medications: Current Medications Sodium Chloride (Sodium Chloride 0.9%) 1,000 mls @ 70 mls/hr IV .[id number] [facility] Last Admin: 10/12/16 12:16 Dose: 70 mls/hr Tigecycline 50 mg/ Sodium (Chloride) 100 mls @ 100 mls/hr IVPB Q12 [facility] PRN Reason: Protocol Stop: 10/17/16 22:01 Last Admin: 10/13/16 10:25 Dose: 100 mls/hr Heparin Sodium/Sodium Chloride (Heparin 03991 Units/250ml 1/2 Normal Saline) 25 ,000 units in 250 mls @ 12.337 mls/hr IV .[id number] PRN; Protocol; 18 UNITS/KG/HR PRN Reason: ADJUST RATE PER PROTOCOL Last Admin: 10/12/16 22:36 Dose: 11.02 units/kg/hr, 7.553 mls/hr Insulin Human Lispro (Humalog Med) 0 units SC ACHS [facility] PRN Reason: Protocol Last Admin: 10/13/16 12:46 Dose: 1 units Metoprolol Tartrate (Lopressor) 25 mg PO BID [facility] Last Admin: 10/13/16 10:26 Dose: 25 mg Montelukast Sodium (Singulair) 10 mg PO HS [facility] Last Admin: 10/12/16 22:08 Dose: 10 mg Non-Formulary Medication (Protein Supplement [Prosource]) 30 ml PO BID [facility] Last Admin: 10/13/16 10:27 Dose: Not Given Oxycodone/Acetaminophen (Percocet 5/325 Mg Tab) 1 tab PO Q6H PRN PRN Reason: Pain, moderate (4-7) Stop: 10/14/16 20:35 Last Admin: 10/12/16 22:11 Dose: 1 tab Pantoprazole Sodium (Protonix Inj) 40 mg IVP DAILY [facility] Pregabalin (Lyrica) 25 mg PO BID [facility] Last Admin: 10/13/16 10:26 Dose: 25 mg Vitamin B Complex/Vit C/Folic Acid (Nephro-Shereen) 1 tab PO DAILY [facility] Last Admin: 10/13/16 10:26 Dose: 1 tab - Labs Labs: 10/13/16 07:28 10/13/16 07:28 PT 13.2 Seconds (9.9-11.8) H 10/13/16 07:28 INR 1.22 (0.93-1.08) H 10/13/16 07:28 APTT 62.4 Seconds (23.7-30.8) H 10/13/16 07:28 Attending/Attestation - Attestation I have personally seen and examined this patient.: Yes I have fully participated in the care of the patient.: Yes I have reviewed all pertinent clinical information, including history, physical exam and plan: Yes Notes (Text): 10/13/16 14:02 Patient seen and examined at bedside. Awake, alert and in good spirits. Denies any new complaints. Labs, vitals, notes reviewed and case discussed with the podiatry fellow and . Plan to continue IV Tygacil, IV heparin and will assess tomorrow for bedside versus OR debridement. Cardiology consulted for clearance tomorrow as well. ID follow up appreciated. DCP to [facility] in 24-48 hours maximum unless changes in clinical condition occur. Revoewed and agreew itht he plan of care outlined by the resident
--- NOTE | 2016-10-13 18:46 | CP.PCM.PN ---
Subjective - Date & Time of Evaluation Date of Evaluation: 10/13/16 Time of Evaluation: 16:00 - Subjective Subjective: Infectious Disease Follow Up: October 13, 2016 81 yo female well known to me sent from [facility] for Left lower leg cellulitis. Cultures at [facility] showing Serratia with sensitivities to Tygacil. Patient has had similar episodes in the past. Awaiting repeat wound cultures to return... showing moderate gram negative rods x 2. Patient still with drainage from the left lower leg. Objective - Vital Signs/Intake and Output Vital Signs (last 24 hours): Temp Pulse Resp BP Pulse Ox 97.5 F L 72 22 145/74 97 10/13/16 16:00 10/13/16 17:39 10/13/16 16:00 10/13/16 17:39 10/13/16 16:00 Intake and Output: 10/13/16 10/13/16 06:59 18:59 Intake Total 1180 600 Balance 1180 600 - Medications Medications: Current Medications Sodium Chloride (Sodium Chloride 0.9%) 1,000 mls @ 70 mls/hr IV .[id number] [facility] Last Admin: 10/12/16 12:16 Dose: 70 mls/hr Tigecycline 50 mg/ Sodium (Chloride) 100 mls @ 100 mls/hr IVPB Q12 [facility] PRN Reason: Protocol Stop: 10/17/16 22:01 Last Admin: 10/13/16 10:25 Dose: 100 mls/hr Heparin Sodium/Sodium Chloride (Heparin 66006 Units/250ml 1/2 Normal Saline) 25 ,000 units in 250 mls @ 12.337 mls/hr IV .[id number] PRN; Protocol; 18 UNITS/KG/HR PRN Reason: ADJUST RATE PER PROTOCOL Last Admin: 10/12/16 22:36 Dose: 11.02 units/kg/hr, 7.553 mls/hr Insulin Human Lispro (Humalog Med) 0 units SC ACHS [facility] PRN Reason: Protocol Last Admin: 10/13/16 16:20 Dose: Not Given Metoprolol Tartrate (Lopressor) 25 mg PO BID [facility] Last Admin: 10/13/16 17:39 Dose: 25 mg Montelukast Sodium (Singulair) 10 mg PO HS [facility] Last Admin: 10/12/16 22:08 Dose: 10 mg Non-Formulary Medication (Protein Supplement [Prosource]) 30 ml PO BID [facility] Last Admin: 10/13/16 10:27 Dose: Not Given Oxycodone/Acetaminophen (Percocet 5/325 Mg Tab) 1 tab PO Q6H PRN PRN Reason: Pain, moderate (4-7) Stop: 10/14/16 20:35 Last Admin: 10/12/16 22:11 Dose: 1 tab Pantoprazole Sodium (Protonix Inj) 40 mg IVP DAILY [facility] Pregabalin (Lyrica) 25 mg PO BID [facility] Last Admin: 10/13/16 17:39 Dose: 25 mg Vitamin B Complex/Vit C/Folic Acid (Nephro-Shereen) 1 tab PO DAILY [facility] Last Admin: 10/13/16 10:26 Dose: 1 tab - Labs Labs: 10/13/16 07:28 10/13/16 07:28 PT 13.2 Seconds (9.9-11.8) H 10/13/16 07:28 INR 1.22 (0.93-1.08) H 10/13/16 07:28 APTT 62.4 Seconds (23.7-30.8) H 10/13/16 07:28 - Constitutional Appears: Non-toxic, No Acute Distress, Chronically Ill - Head Exam Head Exam: ATRAUMATIC, NORMOCEPHALIC - Eye Exam Eye Exam: EOMI, PERRL Pupil Exam: NORMAL ACCOMODATION, PERRL - ENT Exam ENT Exam: Mucous Membranes Moist, Normal External Ear Exam, TM's Normal Bilaterally - Neck Exam Neck Exam: Full ROM, Normal Inspection - Respiratory Exam Respiratory Exam: Clear to Ausculation Bilateral, NORMAL BREATHING PATTERN. absent: Rales, Rhonchi, Wheezes - Cardiovascular Exam Cardiovascular Exam: Tachycardia, RRR, +S1, +S2 - GI/Abdominal Exam GI & Abdominal Exam: Soft, Normal Bowel Sounds. absent: Distended, Tenderness - Extremities Exam Additional comments: Left lower leg cellulitis from toes to just about mid romeo... nearly circumferential - Neurological Exam Neurological Exam: Alert, Awake, CN II-XII Intact, Oriented x3 - Psychiatric Exam Psychiatric exam: Normal Affect, Normal Mood - Skin Skin Exam: Intact, Normal Color Assessment and Plan - Assessment and Plan (Free Text) Assessment: 81 yo female with left lower leg cellulitis with multiple drug allergies. She has chronic ulcerations of the left lower leg with drainage. Chronic venous stasis. Continued on Tigecycline for now. Supportive care. Local wound care. Awaiting repeat wound cultures... showing moderate gram negative rods x 2. Still with drainage. Potential debridement of the left lower leg. Thank you for allowing me to participate in the care of the patient, we will follow with you.
[2016-10-13] MEDS: Oxycodone/Acetaminophen 5/325 mg Tab PO PRN (22:14)
[2016-10-14 06:41] LABS: ADD MANUAL DIFF? NO
[2016-10-14 07:02] LABS: INR 1.24 (0.93-1.08); PARTIAL THROMBOPLASTIN TIME 64.1 Seconds (23.7-30.8)
[2016-10-14 07:06] LABS: BASO # 0.03 K/mm3 (0.0-2.0); BASO % 0.4 % (0.0-3.0); EOS # 0.2 (0.0-0.7); EOS % 2.4 % (1.5-5.0); GRAN # 4.92 (1.4-6.5); GRAN % 72.6 % (50.0-68.0); HEMATOCRIT 33.1 % (36.0-48.0); LYMPH # 1.1 (1.2-3.4); LYMPH % 15.6 % (22.0-35.0); MEAN CELL VOLUME 88.5 fL (80.0-105.0); MEAN CORPUSCULAR HEMOGLOBIN 28.1 pg (25.0-35.0); MEAN CORPUSCULAR HGB CONC 31.7 g/dl (31.0-37.0); MEAN PLATELET VOLUME 10.9 fl (7.0-11.0); MONO # 0.6 (0.1-0.6); PLATELET COUNT 193 10^3/uL (120.0-450.0); RED CELL DISTRIBUTION WIDTH 15.9 % (11.5-14.5); WHITE BLOOD COUNT 6.8 10^3/ul (4.5-11.0)
[2016-10-14 07:08] LABS: ALB/GLOB RATIO 0.7 (1.1-1.8); ALKALINE PHOSPHATASE 141 U/L (38-133); ALT/SGPT 29 U/L (7-56); AST/SGOT 27 U/L (15-39); BILIRUBIN,TOTAL 0.7 mg/dL (0.2-1.3); BLOOD UREA NITROGEN 26 mg/dL (7-21); CALCIUM 8.2 mg/dL (8.4-10.5); CARBON DIOXIDE 19 mmol/L (21-33); CHLORIDE 115 mmol/L (98-107); GFR AFRICAN-AMERICAN > 60; GLUCOSE,RANDOM 95 mg/dL (70-110); MAGNESIUM 1.6 mg/dL (1.7-2.2); POTASSIUM 4.1 mmol/L (3.6-5.0); SODIUM 139 mmol/L (132-148); TOTAL PROTEIN 5.9 g/dL (5.8-8.3)
[2016-10-14] MEDS: Insulin Lispro (humaLOG) MEDIUM Coverage SC SCH ×4 (08:59→22:15)
[2016-10-14] MEDS ORDERED: Magnesium Sulfate 2 GM in Sodium Chloride 0.9% 100 ML IVPB ONE (09:16)
[2016-10-14] MEDS: Magnesium Oxide 400 mg Tab UD PO SCH ×2 (10:22→18:24)
[2016-10-14] MEDS: Multivitamin Vitamin B Complex (Nephro-Vite) Tab PO SCH (10:23)
[2016-10-14] MEDS: PROTEIN SUPPLEMENT PO SCH (10:24)
--- NOTE | 2016-10-14 10:40 | CP.PCM.PN ---
<Aubrey Nieto - Last Filed: 10/14/16 10:41> Subjective - Date & Time of Evaluation Date of Evaluation: 10/14/16 Time of Evaluation: 10:35 - Subjective Subjective: Med progress note. Attending: Dr. Davey Pt seen and examined at bedside. No acute distress. No events overnight. Awaiting wound culture results. Pt will not go for or debridement, per Dr. Mckeon. No complaints. No fevers, chills, vomiting, diarrhea. Objective - Vital Signs/Intake and Output Vital Signs (last 24 hours): Temp Pulse Resp BP Pulse Ox 98.7 F 72 18 153/91 H 95 10/14/16 07:19 10/14/16 10:23 10/14/16 07:19 10/14/16 10:23 10/14/16 07:19 Intake and Output: 10/14/16 10/14/16 06:59 18:59 Intake Total 60 Balance 60 - Medications Medications: Current Medications Apixaban (Eliquis) 2.5 mg PO BID [facility] PRN Reason: Protocol Last Admin: 10/14/16 10:22 Dose: 2.5 mg Sodium Chloride (Sodium Chloride 0.9%) 1,000 mls @ 70 mls/hr IV .[id number] [facility] Last Admin: 10/12/16 12:16 Dose: 70 mls/hr Tigecycline 50 mg/ Sodium (Chloride) 100 mls @ 100 mls/hr IVPB Q12 [facility] PRN Reason: Protocol Stop: 10/17/16 22:01 Last Admin: 10/14/16 10:25 Dose: 100 mls/hr Insulin Human Lispro (Humalog Med) 0 units SC ACHS [facility] PRN Reason: Protocol Last Admin: 10/14/16 08:59 Dose: Not Given Magnesium Oxide (Mag-Ox) 400 mg PO BID [facility] Last Admin: 10/14/16 10:22 Dose: 400 mg Metoprolol Tartrate (Lopressor) 25 mg PO BID [facility] Last Admin: 10/14/16 10:23 Dose: 25 mg Montelukast Sodium (Singulair) 10 mg PO HS [facility] Last Admin: 10/13/16 22:12 Dose: 10 mg Non-Formulary Medication (Protein Supplement [Prosource]) 30 ml PO BID [facility] Last Admin: 10/14/16 10:24 Dose: Not Given Oxycodone/Acetaminophen (Percocet 5/325 Mg Tab) 1 tab PO Q6H PRN PRN Reason: Pain, moderate (4-7) Stop: 10/14/16 20:35 Last Admin: 10/13/16 22:14 Dose: 1 tab Pantoprazole Sodium (Protonix Inj) 40 mg IVP DAILY [facility] Last Admin: 10/14/16 10:25 Dose: 40 mg Pregabalin (Lyrica) 25 mg PO BID [facility] Last Admin: 10/14/16 10:22 Dose: 25 mg Vitamin B Complex/Vit C/Folic Acid (Nephro-Shereen) 1 tab PO DAILY [facility] Last Admin: 10/14/16 10:23 Dose: 1 tab - Labs Labs: 10/14/16 06:20 10/14/16 06:20 PT 13.4 Seconds (9.9-11.8) H 10/14/16 06:20 INR 1.24 (0.93-1.08) H 10/14/16 06:20 APTT 64.1 Seconds (23.7-30.8) H 10/14/16 06:20 - Constitutional Appears: Non-toxic - Head Exam Head Exam: ATRAUMATIC, NORMAL INSPECTION, NORMOCEPHALIC - Eye Exam Eye Exam: EOMI - ENT Exam ENT Exam: Mucous Membranes Moist - Neck Exam Neck Exam: Full ROM, Normal Inspection - Respiratory Exam Respiratory Exam: NORMAL BREATHING PATTERN. absent: Respiratory Distress - Cardiovascular Exam Cardiovascular Exam: +S1, +S2 - GI/Abdominal Exam GI & Abdominal Exam: Soft, Normal Bowel Sounds. absent: Tenderness - Extremities Exam Extremities Exam: absent: Full ROM, Normal Inspection Additional comments: Dressing on left lower ext, clean, dry, intact Sensation intact and motor function intact. - Neurological Exam Neurological Exam: Alert, Awake, Oriented x3 - Psychiatric Exam Psychiatric exam: Normal Affect, Normal Mood - Skin Skin Exam: Dry, Intact, Normal Color, Warm Assessment and Plan - Assessment and Plan (Free Text) Assessment: This is an 81 yo female with past medical hx of HTN, COPD, DM, AFib/Sick Sinus s /p pacer on anti coagulation, and chronic non-healing LLE vascular ulcer who was sent from [facility] by PMD (Dr. Sparks) for LLE cellulitis found to have Serratia and Proteus spp sensitive to tygacil. 1) LLE wound with concurrent cellulitis -Sent from [facility] with cultures + for Serratia and Proteus, sensitive to Tygacil -Tygacil q12 ordered as per ID -ID consulted (Dr. Alvares), appreciate all recs -blood cultures negative -wound prelim gram neg rods, pending full report and sens. -left foot x ray shows osteopenia -knee and tibia x rays negative -Wound care ordered -Podiatry (Dr. Miguel Mckeon) consulted, appreciate all recs -Remains afebrile and without leukocytosis -As per Podiatry, BKA not indicated at this time; if patient still elects to pursue BKA, needs to follow up outpt and arrange through her primary production potter -pt will not go for debridement per Dr. Mckeon. -will stop heparin drip and restart eliquis 2) HTN -continue home Metoprolol -gentle hydration with NS 70cc/hr 3) DM with neuropathy -holding home insulin in favor of Med-ISS Lispro, fingersticks ACHS -Heart-healthy consistent carb diet -Continue home lyrica for DM-neuropathy 4) COPD -continue home Montelukast 10 daily 5) AFib/Hx Sick sinus syndrome -Hx of pacer -will restart eliquis 6) GI/DVT eliquis protonix daily dw Dr. Davey <Don Davey - Last Filed: 10/15/16 17:01> Objective - Vital Signs/Intake and Output Vital Signs (last 24 hours): Temp Pulse Resp BP Pulse Ox 98.1 F 61 20 135/78 94 L 10/15/16 07:30 10/15/16 10:19 10/15/16 07:30 10/15/16 10:19 10/15/16 07:30 Intake and Output: 10/15/16 10/15/16 06:59 18:59 Intake Total 2363 Balance 2363 - Medications Medications: Current Medications Sodium Chloride (Sodium Chloride 0.9%) 1,000 mls @ 70 mls/hr IV .[id number] [facility] Last Admin: 10/15/16 15:30 Dose: 70 mls/hr Amikacin Sulfate 350 mg/ (Sodium Chloride) 101.4 mls @ 204 mls/hr IVPB Q24H [facility] PRN Reason: Protocol Last Admin: 10/15/16 12:15 Dose: 204 mls/hr Insulin Human Lispro (Humalog Med) 0 units SC ACHS [facility] PRN Reason: Protocol Last Admin: 10/15/16 12:14 Dose: 1 units Magnesium Oxide (Mag-Ox) 400 mg PO DAILY [facility] Last Admin: 10/15/16 10:18 Dose: 400 mg Metoprolol Tartrate (Lopressor) 25 mg PO BID [facility] Last Admin: 10/15/16 10:19 Dose: 25 mg Montelukast Sodium (Singulair) 10 mg PO HS [facility] Last Admin: 10/14/16 22:15 Dose: 10 mg Non-Formulary Medication (Protein Supplement [Prosource]) 30 ml PO BID [facility] Last Admin: 10/15/16 10:19 Dose: Not Given Oxycodone/Acetaminophen (Percocet 5/325 Mg Tab) 1 tab PO Q4H PRN PRN Reason: Pain, severe (8-10) Stop: 10/17/16 22:24 Last Admin: 10/15/16 00:21 Dose: 1 tab Pregabalin (Lyrica) 25 mg PO BID [facility] Last Admin: 10/15/16 10:18 Dose: 25 mg Vitamin B Complex/Vit C/Folic Acid (Nephro-Shereen) 1 tab PO DAILY [facility] Last Admin: 10/15/16 10:18 Dose: 1 tab - Labs Labs: 10/15/16 06:10 10/15/16 06:10 PT 13.4 Seconds (9.9-11.8) H 10/14/16 06:20 INR 1.24 (0.93-1.08) H 10/14/16 06:20 APTT 99.6 Seconds (23.7-30.8) H* 10/15/16 06:10 Attending/Attestation - Attestation I have personally seen and examined this patient.: Yes I have fully participated in the care of the patient.: Yes I have reviewed all pertinent clinical information, including history, physical exam and plan: Yes Notes (Text): 10/15/16 16:58 Attending note; Patient seen and examined with resident. Patient is a 81-year-old female from [facility] is sent for left lower extremity cellulitis. Podiatry evaluation with Dr. Miguel Mckeon appreciated. No need for debridement at this point. Patient will be referred back to primary production potter Dr. Bang Mckeon as outpatient. Currently on IV tigecycline. Culture grew Escherichia coli and MRSA. Needs IV amikacin for 10 days per ID. PICC line placement requested. A. fib; eliquis on hold. Bridge with IV heparin. Patient will be transferred back to [facility]. Upon discharge the patient will follow-up with PMD .
[2016-10-14] MEDS: Vancomycin 0.8 GM in Sodium Chloride 0.9% 250 ML IVPB SCH (14:34)
--- NOTE | 2016-10-14 14:51 | CARD ---
APPROVED REPORT EKG Measurement Heart [id number] <Conclusion> Demand pacemaker, interpretation is based on intrinsic rhythm Undetermined rhythm Right bundle branch block T wave abnormality, consider lateral ischemia Abnormal ECG
--- NOTE | 2016-10-14 15:44 | CON ---
DATE: 10/14/2016 TIME OF CONSULTATION: 0630 hours. LOCATION OF CONSULTATION: Room 562, bed 2. REASON FOR CONSULTATION: Infection and ulceration of the left lower leg. HISTORY OF PRESENT ILLNESS: This is an 81-year-old female living at [facility] who was transferr ed in over the weekend with sepsis and cellulitis and the ulceration of the left lower extremity. Th is had been an ongoing problem for her. She had been treated at the [facility] by Dr. Shan Mckeon and had been infected several times in the past. Most recently, she reports having be en on Dakin's solution dressings for her wound. She had had some prior experience at the [facility] with Dr. Gilbert. She reports having struggled for some time with the u lceration of the left leg which off and on had been extremely painful, and she reports giving some co nsideration to a lower extremity amputation, but has not officially been counseled for such. PAST MEDICAL HISTORY: Positive for hypertension, COPD, diabetes which she admits to be controlled, a trial fibrillation with pacemaker and the chronic nonhealing left lower extremity ulceration. Currciro resendiz, the leg has been cultured with serratia and proteus, and the patient is on IV antibiotics per in fectious disease. PAST SURGICAL HISTORY: Positive for cataracts, pacemaker and multiple previous foot and ankle surger ies including probable fusion for her chronic arthritic conditions and the ongoing wound care perform ed on the ulceration of the left leg. 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 She de nies any direct family connection. Social history is negative for tobacco, alcohol and recreational chemicals. REVIEW OF SYSTEMS: Is performed and is essentially negative except for those conditions related to h er arthritis and the sepsis with ulceration on the left leg. PHYSICAL EXAMINATION: GENERAL: The patient is alert and oriented x 3, responding promptly to questioning and interview at the bedside. VITAL SIGNS: Stable and she appears in no acute distress. LOWER EXTREMITIES: Are evaluated. She has weakly palpable pulses on the right and the dorsal left f oot. There is a normal temperature and color to the lower extremities. The left leg ulceration appe ars post cellulitic. There are ink markings proximally and distally at the forefoot to indicate wher e the previous weekend's cellulitis had peaked and it appears to be improved. The ulcer appears to b e full thickness with islands of epithelialization extending from the metatarsal base area dorsally a round the medial side/the medial ankle and up on the anterior and anteromedial aspect of the leg. Th ere is no deep calf tenderness. There is significant joint tenderness with manipulation of the lower extremity, most probably due to the arthritis. The wound surface appears to have an exudative moist surface with marginal areas of necrosis. There is no odor this morning. There is no proximal lymph angitis or streaking. There is no evidence of ulceration decubitus or other skin manifestations on o ther locations of the left or on the right. IMPRESSION: Improving cellulitis with an infected vascular ulceration of the left lower extremity. PLAN: The current status of the wound and the health is discussed with the patient at the bedside. The previous weekend's bandages have included Xeroform, petroleum gauzes, in addition to some Telfa a nd gauze wraps with an Ashwin bandage. The presence of the exudative moist surface suggests the need to attempt to dry out the wound. I have advised the patient and will write orders for the use of a top ical astringent type dressing such as a saline or a Dakin's solution - soaking wet Dakin's or saline, saline and Betadine dressings applied topically with plain gauze (no Telfa), covered with dry ABDs a nd a Kerlix wrap (no Ashwin bandages to be used), and allowed it to perform evaporative style drying of the wound to be changed twice a day. If the patient feels some tenderness with removing the dried ba ndages that are closest to the wound surface, they can be moistened just before removal and then the wound should be cleaned gently with saline and then rewrapped with another astringent dressing. I carroll ve advised the patient to have these performed twice a day for several days and at the time when the wound surface appears to be less exudative to switch over to a wound gel or more likely/more preferab le would be a Bactroban type ointment dressing, but always avoiding Xeroform or Telfa type products a s to allow a natural wicking action to occur through the dry gauze bandage. I have instructed her fo r her convenience to return for followup care to the [facility] and under the care of Dr. Chas Mckeon for ongoing care. I do not feel that a surgical debridement is required at this time. I do not see any areas in the wound to indicate the kind of depth where the subcutaneous tissues are significantly affected and would, having talked to Dr. Newman on Friday about the medical plan, sinc e we will not have to take her to the operating room on this admission, she is eligible for transfer back to the [facility] with orders for twice a day wet-to-dry gauze dressings on the left low er extremity and followup appointment with Dr. Shan Mckeon either at the [facility] or at the [facility]. Miguel Mckeon DPM cc: [phone] TT: 10/14/2016 15:44:14 Confirmation # [id number] Dictation # [id number] pedro
[2016-10-14] MEDS ORDERED: Heparin25000 units/250ml 1/2NS 25,000 UNITS/250 ML BAG IV PRN (17:43)
--- NOTE | 2016-10-14 18:14 | CP.PCM.PN ---
Subjective - Date & Time of Evaluation Date of Evaluation: 10/14/16 Time of Evaluation: 16:45 - Subjective Subjective: Infectious Disease Follow Up: October 14, 2016 81 yo female well known to me sent from [facility] for Left lower leg cellulitis. Cultures at [facility] showing Serratia with sensitivities to Tygacil. Patient has had similar episodes in the past. Awaiting repeat wound cultures to return... showing MRSA, ESBL+ E. coli, and Proteus. The E. coli is sensitive to meropem Patient still with drainage from the left lower leg. Apparently, the patient refused debridement of the wounds of the left lower leg. The patient has PCN allergies. Objective - Vital Signs/Intake and Output Vital Signs (last 24 hours): Temp Pulse Resp BP Pulse Ox 98.7 F 72 18 153/91 H 95 10/14/16 07:19 10/14/16 10:23 10/14/16 07:19 10/14/16 10:23 10/14/16 07:19 Intake and Output: 10/14/16 10/14/16 06:59 18:59 Intake Total 60 Balance 60 - Medications Medications: Current Medications Apixaban (Eliquis) 2.5 mg PO BID KEO PRN Reason: Protocol Last Admin: 10/14/16 14:34 Dose: Not Given Sodium Chloride (Sodium Chloride 0.9%) 1,000 mls @ 70 mls/hr IV .[id number] [facility] Last Admin: 10/12/16 12:16 Dose: 70 mls/hr Amikacin Sulfate 350 mg/ (Sodium Chloride) 101.4 mls @ 204 mls/hr IVPB Q24H KEO PRN Reason: Protocol Last Admin: 10/14/16 14:33 Dose: Not Given Vancomycin HCl 0.8 gm/ Sodium (Chloride) 250 mls @ 166.667 mls/hr IVPB Q12H [facility] Last Admin: 10/14/16 14:34 Dose: 166.667 mls/hr Heparin Sodium/Sodium Chloride (Heparin 03301 Units/250ml 1/2 Normal Saline) 25 ,000 units in 250 mls @ 12.247 mls/hr IV .[id number] PRN; Protocol; 18 UNITS/KG/HR PRN Reason: ADJUST RATE PER PROTOCOL Insulin Human Lispro (Humalog Med) 0 units SC ACHS [facility] PRN Reason: Protocol Last Admin: 10/14/16 12:24 Dose: 1 units Magnesium Oxide (Mag-Ox) 400 mg PO BID [facility] Last Admin: 10/14/16 10:22 Dose: 400 mg Metoprolol Tartrate (Lopressor) 25 mg PO BID [facility] Last Admin: 10/14/16 10:23 Dose: 25 mg Montelukast Sodium (Singulair) 10 mg PO HS [facility] Last Admin: 10/13/16 22:12 Dose: 10 mg Non-Formulary Medication (Protein Supplement [Prosource]) 30 ml PO BID [facility] Last Admin: 10/14/16 10:24 Dose: Not Given Oxycodone/Acetaminophen (Percocet 5/325 Mg Tab) 1 tab PO Q6H PRN PRN Reason: Pain, moderate (4-7) Stop: 10/14/16 20:35 Last Admin: 10/13/16 22:14 Dose: 1 tab Pregabalin (Lyrica) 25 mg PO BID [facility] Last Admin: 10/14/16 10:22 Dose: 25 mg Vitamin B Complex/Vit C/Folic Acid (Nephro-Shereen) 1 tab PO DAILY [facility] Last Admin: 10/14/16 10:23 Dose: 1 tab - Labs Labs: 10/14/16 06:20 10/14/16 06:20 PT 13.4 Seconds (9.9-11.8) H 10/14/16 06:20 INR 1.24 (0.93-1.08) H 10/14/16 06:20 APTT 64.1 Seconds (23.7-30.8) H 10/14/16 06:20 - Constitutional Appears: Non-toxic, No Acute Distress, Chronically Ill - Head Exam Head Exam: ATRAUMATIC, NORMOCEPHALIC - Eye Exam Eye Exam: EOMI, PERRL Pupil Exam: NORMAL ACCOMODATION, PERRL - ENT Exam ENT Exam: Mucous Membranes Moist, Normal External Ear Exam, TM's Normal Bilaterally - Neck Exam Neck Exam: Full ROM, Normal Inspection - Respiratory Exam Respiratory Exam: Clear to Ausculation Bilateral, NORMAL BREATHING PATTERN. absent: Rales, Rhonchi, Wheezes - Cardiovascular Exam Cardiovascular Exam: REGULAR RHYTHM, RRR, +S1, +S2 - GI/Abdominal Exam GI & Abdominal Exam: Soft, Normal Bowel Sounds. absent: Distended, Tenderness - Extremities Exam Additional comments: Left lower leg cellulitis from toes to just about mid romeo... nearly circumferential. Very mild improvement. - Neurological Exam Neurological Exam: Alert, Awake, CN II-XII Intact, Oriented x3 - Psychiatric Exam Psychiatric exam: Normal Affect, Normal Mood - Skin Skin Exam: Intact, Normal Color Assessment and Plan - Assessment and Plan (Free Text) Assessment: 81 yo female with left lower leg cellulitis with multiple drug allergies. She has chronic ulcerations of the left lower leg with drainage. Chronic venous stasis. Continued on Tigecycline for now. Supportive care. Local wound care. Awaiting repeat wound cultures... showing moderate gram negative rods x 2. Still with drainage. Potential debridement of the left lower leg but patient apparently refused. To go back to nursing facility with Bactrim DS and IV Amikacin. The patient with PCN allergies. Limited ability to treat with antibiotics especially given the patient's allergies. Thank you for allowing me to participate in the care of the patient, we will follow with you.
[2016-10-14] MEDS ORDERED: Oxycodone/Acetaminophen 5/325 mg Tab PO PRN (22:23)
[2016-10-15] MEDS: Sodium Chloride 0.9% 1,000 ML IV SCH ×2 (01:08→15:30)
[2016-10-15] MEDS: Vancomycin 0.8 GM in Sodium Chloride 0.9% 250 ML IVPB SCH ×2 (01:18→15:01)
[2016-10-15 06:48] LABS: ADD MANUAL DIFF? NO
[2016-10-15 07:04] LABS: BASO # 0.03 K/mm3 (0.0-2.0); BASO % 0.5 % (0.0-3.0); EOS # 0.1 (0.0-0.7); GRAN # 4.05 (1.4-6.5); GRAN % 71.8 % (50.0-68.0); HEMATOCRIT 31.1 % (36.0-48.0); MEAN CELL VOLUME 87.9 fL (80.0-105.0); MEAN CORPUSCULAR HEMOGLOBIN 27.7 pg (25.0-35.0); MEAN CORPUSCULAR HGB CONC 31.5 g/dl (31.0-37.0); MEAN PLATELET VOLUME 10.9 fl (7.0-11.0); MONO # 0.5 (0.1-0.6); MONO % 8.7 % (1.0-6.0); PLATELET COUNT 175 10^3/uL (120.0-450.0); WHITE BLOOD COUNT 5.6 10^3/ul (4.5-11.0)
[2016-10-15 07:18] LABS: ALB/GLOB RATIO 0.7 (1.1-1.8); ALKALINE PHOSPHATASE 133 U/L (38-133); ALT/SGPT 27 U/L (7-56); AST/SGOT 21 U/L (15-39); BILIRUBIN,TOTAL 0.9 mg/dL (0.2-1.3); BLOOD UREA NITROGEN 22 mg/dL (7-21); CALCIUM 7.9 mg/dL (8.4-10.5); CARBON DIOXIDE 19 mmol/L (21-33); CHLORIDE 113 mmol/L (98-107); GFR AFRICAN-AMERICAN > 60; GLUCOSE,RANDOM 96 mg/dL (70-110); MAGNESIUM 1.9 mg/dL (1.7-2.2); PHOSPHOROUS 4.1 mg/dL (2.5-4.5); POTASSIUM 3.9 mmol/L (3.6-5.0); SODIUM 139 mmol/L (132-148); TOTAL PROTEIN 5.7 g/dL (5.8-8.3)
[2016-10-15 07:45] VITALS: PULSE 61; RESP 20; TEMP 98.1; O2SAT 94
[2016-10-15] MEDS: Insulin Lispro (humaLOG) MEDIUM Coverage SC SCH ×4 (08:04→17:41)
[2016-10-15] MEDS ORDERED: Magnesium Oxide 400 mg Tab UD PO SCH (10:00)
[2016-10-15] MEDS: Multivitamin Vitamin B Complex (Nephro-Vite) Tab PO SCH (10:18)
[2016-10-15] MEDS: PROTEIN SUPPLEMENT PO SCH ×2 (10:19→17:26)
[2016-10-15 10:20] VITALS: BP 135/78
[2016-10-15] MEDS ORDERED: Lidocaine 2% Inj (20ml) ONE (12:50)
--- NOTE | 2016-10-15 14:51 | CP.PCM.DIS ---
<Gwyn Krause - Last Filed: 10/15/16 16:17> Provider - Provider Date of Admission: 10/10/16 15:03 Attending physician: Don Davey MD Primary care physician: NO PRIMARY CARE PROVIDER Consults: ID: Go Podiatry: Miguel Mckeon IR: [facility] Time Spent in preparation of Discharge (in minutes): 35 Diagnosis - Discharge Diagnosis (1) Venous stasis ulcer of left lower extremity Status: Acute Priority: High (2) Cellulitis Status: Acute Priority: High (3) Diabetes Status: Chronic Priority: Medium Comment: Stable (4) COPD (chronic obstructive pulmonary disease) Status: Chronic Priority: Medium Comment: Stable Hospital Course - Lab Results Lab Results: Micro Results 10/11/16 11:30 Leg - Left Gram Stain - Final 10/11/16 11:30 Leg - Left Wound Culture - Final Escherichia Coli Proteus Mirabilis Methicillin Resistant S Aureus Most Recent Lab Values WBC 5.6 10^3/ul (4.5-11.0) 10/15/16 06:10 RBC 3.54 10^6/uL (3.5-6.1) 10/15/16 06:10 Hgb 9.8 gm/dL (12.0-16.0) L 10/15/16 06:10 Hct 31.1 % (36.0-48.0) L 10/15/16 06:10 MCV 87.9 fL (80.0-105.0) 10/15/16 06:10 MCH 27.7 pg (25.0-35.0) 10/15/16 06:10 MCHC 31.5 g/dl (31.0-37.0) 10/15/16 06:10 RDW 16.0 % (11.5-14.5) H 10/15/16 06:10 Plt Count 175 10^3/uL (120.0-450.0) 10/15/16 06:10 MPV 10.9 fl (7.0-11.0) 10/15/16 06:10 Gran % 71.8 % (50.0-68.0) H 10/15/16 06:10 Lymph % (Auto) 17.0 % (22.0-35.0) L 10/15/16 06:10 Haskell % (Auto) 8.7 % (1.0-6.0) H 10/15/16 06:10 Eos % (Auto) 2.0 % (1.5-5.0) 10/15/16 06:10 Baso % (Auto) 0.5 % (0.0-3.0) 10/15/16 06:10 Gran # 4.05 (1.4-6.5) 10/15/16 06:10 Lymph # 1.0 (1.2-3.4) L 10/15/16 06:10 Haskell # 0.5 (0.1-0.6) 10/15/16 06:10 Eos # 0.1 (0.0-0.7) 10/15/16 06:10 Baso # 0.03 K/mm3 (0.0-2.0) 10/15/16 06:10 ESR 50 mm/hr (0.0-20.0) H 10/10/16 11:43 PT 13.4 Seconds (9.9-11.8) H 10/14/16 06:20 INR 1.24 (0.93-1.08) H 10/14/16 06:20 APTT 99.6 Seconds (23.7-30.8) H* 10/15/16 06:10 Sodium 139 mmol/L (132-148) 10/15/16 06:10 Potassium 3.9 mmol/L (3.6-5.0) 10/15/16 06:10 Chloride 113 mmol/L (98-107) H 10/15/16 06:10 Carbon Dioxide 19 mmol/L (21-33) L 10/15/16 06:10 Anion Gap 11 (10-20) 10/15/16 06:10 BUN 22 mg/dL (7-21) H 10/15/16 06:10 Creatinine 0.8 mg/dL (0.5-1.4) 10/15/16 06:10 Est GFR ( Amer) > 60 10/15/16 06:10 Est GFR (Non-Af Amer) > 60 10/15/16 06:10 Random Glucose 96 mg/dL (70-110) 10/15/16 06:10 Lactic Acid 1.3 mmol/L (0.7-2.1) 10/10/16 20:20 Calcium 7.9 mg/dL (8.4-10.5) L 10/15/16 06:10 Phosphorus 4.1 mg/dL (2.5-4.5) 10/15/16 06:10 Magnesium 1.9 mg/dL (1.7-2.2) 10/15/16 06:10 Total Bilirubin 0.9 mg/dL (0.2-1.3) 10/15/16 06:10 AST 21 U/L (15-39) 10/15/16 06:10 ALT 27 U/L (7-56) 10/15/16 06:10 Alkaline Phosphatase 133 U/L (38-133) 10/15/16 06:10 C-React Prot High Sens > 15.00 mg/L (1.00-3.00) H 10/14/16 08:00 Total Protein 5.7 g/dL (5.8-8.3) L 10/15/16 06:10 Albumin 2.3 g/dL (3.0-4.8) L 10/15/16 06:10 Globulin 3.4 gm/dL 10/15/16 06:10 Albumin/Globulin Ratio 0.7 (1.1-1.8) L 10/15/16 06:10 - Hospital Course Hospital Course: This is an 81 yo F with PMH of HTN, COPD, DM, AFib/Sick Sinus s/p pacer on AC, and chronic non-healing LLE vascular ulcer who was sent from [facility] by PMD (Dr. Sparks) for LLE cellulitis found to have Serratia and Proteus spp sensitive to tygacil. While here, cultures obtained were positive for E. coli, Proteus, and MRSA. As per ID, patient was initially continued on Tygacil, but after sensitivities were obtained, was switched to Amikacin and Vancomycin (while inpatient, to be switched to PO Bactrim DS on discharge per ID ). On this regimen, the cellulitis has almost fully regressed. Patient was also seen by Podiatry, who assessed her wound and determined that patient did not bedside or OR debridement; instead they gave recommendations regarding frequency and management of her wound care to dry out her ulcer, pending further evaluation by her outpatient disintegrator feeder (Dr. Shan Mckeon). Patient underwent placement of PICC line (done by IR) to allow for 10 days of Amikacin IV. She was instructed to continue to follow up with her outpatient Cinder Pitman. Patient expressed understanding and agreement. All questions were answered to her satisfaction. She was then discharged back to [facility]. Discharge Exam - Additional Findings Additional findings: - Constitutional Well, Non-toxic, No Acute Distress - Head Exam ATRAUMATIC, NORMAL INSPECTION, NORMOCEPHALIC - Eye Exam EOMI, Normal appearance. absent: Conjunctival injection, Scleral icterus, Irregular/Unequal Pupils - ENT Exam Mucous Membranes Moist - Neck Exam Positive for: Full Rom, Normal Inspection - Respiratory Exam Clear to Auscultation Bilateral, NORMAL BREATHING PATTERN. absent: Accessory Muscle Use, Chest Wall Tenderness, Decreased Breath Sounds, Rales, Rhonchi, Wheezes - Cardiovascular Exam REGULAR RATE & RHYTHM, +S1, +S2. absent: Tachycardia, Bradycardia, Diastolic murmur, Irregular Rhythm, JVD, +S4, Systolic Murmur - GI/Abdominal Exam Normal Bowel Sounds, Soft. absent: Diminished Bowel Sounds, Distended, Firm, Hyperactive Bowel Sounds, Hypoactive Bowel Sounds, Rigid, Tenderness - Extremities Exam RLE exam: Bandaging on lateral aspect of R heel, poorly palpable dorsalis pedis pulse LLE exam: -Cellulitis receded under bandaging -No tenderness to palpation, but sensation to palpation intact and equal in both legs -Bandaging from mid foot (dorsal surface) up to midpoint between ankle and knee , no drainage through bandaging -wrinkled and pitted wax-paper appearance of previously-cellulitic skin, waxy appearance of skin above cellulitic area still below knee -able to faintly palpate L leg popliteal pulse, unable to palpate any more distal pulses in LLE - Neurological Exam Alert, Oriented x3 - Psychiatric Exam Normal Affect, Normal Mood - Skin Other than as described in Extremities exam, skin is dry/intact/normal temp on palpation/normal color Discharge Plan - Discharge Medications Prescriptions: Amikacin [Amikacin 500 mg/2ml Inj] 350 mg IVPB Q24H #14 vial - Follow Up Plan Condition: FAIR Disposition: HOME/ ROUTINE Instructions: Cellulitis (ED), Diabetic Foot Care (DC) Additional Instructions: 1. Follow up with PMd DR. Sparks. 2. Follow up with Podiatry DR. Bang Mckeon for L leg wound. NO TELFA, NO XEROFROM, NO OINTMENT! If gauze sticks to wound @ changes, remoisten gauze to remove. Just use saline on plain gauze with a dry kerlix wrap 2x per day. 3. Only wet to dry dressing. 4. Continue bactrim and amikacin for 10 days. Please discontinue IV vancomycin. 5. Monitor renal function closely. 6. Start eliquis from tomorrow morning. Referrals: [facility] [Outside] PCP,NO [Primary Care Provider] - <Don Davey - Last Filed: 10/15/16 17:03> Provider - Provider Date of Admission: 10/10/16 15:03 Attending physician: Don Davey MD Primary care physician: NO PRIMARY CARE PROVIDER Hospital Course - Lab Results Lab Results: Micro Results 10/11/16 11:30 Leg - Left Gram Stain - Final 10/11/16 11:30 Leg - Left Wound Culture - Final Escherichia Coli Proteus Mirabilis Methicillin Resistant S Aureus Most Recent Lab Values WBC 5.6 10^3/ul (4.5-11.0) 10/15/16 06:10 RBC 3.54 10^6/uL (3.5-6.1) 10/15/16 06:10 Hgb 9.8 gm/dL (12.0-16.0) L 10/15/16 06:10 Hct 31.1 % (36.0-48.0) L 10/15/16 06:10 MCV 87.9 fL (80.0-105.0) 10/15/16 06:10 MCH 27.7 pg (25.0-35.0) 10/15/16 06:10 MCHC 31.5 g/dl (31.0-37.0) 10/15/16 06:10 RDW 16.0 % (11.5-14.5) H 10/15/16 06:10 Plt Count 175 10^3/uL (120.0-450.0) 10/15/16 06:10 MPV 10.9 fl (7.0-11.0) 10/15/16 06:10 Gran % 71.8 % (50.0-68.0) H 10/15/16 06:10 Lymph % (Auto) 17.0 % (22.0-35.0) L 10/15/16 06:10 Haskell % (Auto) 8.7 % (1.0-6.0) H 10/15/16 06:10 Eos % (Auto) 2.0 % (1.5-5.0) 10/15/16 06:10 Baso % (Auto) 0.5 % (0.0-3.0) 10/15/16 06:10 Gran # 4.05 (1.4-6.5) 10/15/16 06:10 Lymph # 1.0 (1.2-3.4) L 10/15/16 06:10 Haskell # 0.5 (0.1-0.6) 10/15/16 06:10 Eos # 0.1 (0.0-0.7) 10/15/16 06:10 Baso # 0.03 K/mm3 (0.0-2.0) 10/15/16 06:10 ESR 50 mm/hr (0.0-20.0) H 10/10/16 11:43 PT 13.4 Seconds (9.9-11.8) H 10/14/16 06:20 INR 1.24 (0.93-1.08) H 10/14/16 06:20 APTT 99.6 Seconds (23.7-30.8) H* 10/15/16 06:10 Sodium 139 mmol/L (132-148) 10/15/16 06:10 Potassium 3.9 mmol/L (3.6-5.0) 10/15/16 06:10 Chloride 113 mmol/L (98-107) H 10/15/16 06:10 Carbon Dioxide 19 mmol/L (21-33) L 10/15/16 06:10 Anion Gap 11 (10-20) 10/15/16 06:10 BUN 22 mg/dL (7-21) H 10/15/16 06:10 Creatinine 0.8 mg/dL (0.5-1.4) 10/15/16 06:10 Est GFR ( Amer) > 60 10/15/16 06:10 Est GFR (Non-Af Amer) > 60 10/15/16 06:10 Random Glucose 96 mg/dL (70-110) 10/15/16 06:10 Lactic Acid 1.3 mmol/L (0.7-2.1) 10/10/16 20:20 Calcium 7.9 mg/dL (8.4-10.5) L 10/15/16 06:10 Phosphorus 4.1 mg/dL (2.5-4.5) 10/15/16 06:10 Magnesium 1.9 mg/dL (1.7-2.2) 10/15/16 06:10 Total Bilirubin 0.9 mg/dL (0.2-1.3) 10/15/16 06:10 AST 21 U/L (15-39) 10/15/16 06:10 ALT 27 U/L (7-56) 10/15/16 06:10 Alkaline Phosphatase 133 U/L (38-133) 10/15/16 06:10 C-React Prot High Sens > 15.00 mg/L (1.00-3.00) H 10/14/16 08:00 Total Protein 5.7 g/dL (5.8-8.3) L 10/15/16 06:10 Albumin 2.3 g/dL (3.0-4.8) L 10/15/16 06:10 Globulin 3.4 gm/dL 10/15/16 06:10 Albumin/Globulin Ratio 0.7 (1.1-1.8) L 10/15/16 06:10 Attending/Attestation - Attestation I have personally seen and examined this patient.: Yes I have fully participated in the care of the patient.: Yes I have reviewed all pertinent clinical information, including history, physical exam and plan: Yes Notes (Text): 10/15/16 17:02 Attending note; Patient seen and examined with resident. Patient is a 81-year-old female from [facility] is sent for left lower extremity cellulitis. Podiatry evaluation with Dr. Miguel Mckeon appreciated. . Patient will be referred back to primary disintegrator feeder Dr. Bang Mckeon as outpatient. Treated with IV tigecycline. Culture grew Escherichia coli and MRSA. Needs IV amikacin and po bactrim for 10 days per ID. PICC line placed. A. fib; start eliquis is am. Patient will be transferred back to [facility] today. Upon discharge the patient will follow-up with PMD . Diagnosis; Left lower extremity cellulitis Chronic A. fib Diabetes Hypertension Neuropathy 10/15/16 17:03
--- NOTE | 2016-10-15 16:18 | CP.PCM.PN ---
Subjective - Date & Time of Evaluation Date of Evaluation: 10/15/16 Time of Evaluation: 15:40 - Subjective Subjective: Patient was seen and evaluated at bedside this afternoon for follow-up on left leg ulceration with resolving cellulitis. Patient was resting comfortably, in NAD. She denies any F/C/N/V/SOB/CP. Left lower extremity dressing noted to be intact, absent serous strike-through. No pedal complaints reported at this time. Objective - Vital Signs/Intake and Output Vital Signs (last 24 hours): Temp Pulse Resp BP Pulse Ox 98.1 F 61 20 135/78 94 L 10/15/16 07:30 10/15/16 10:19 10/15/16 07:30 10/15/16 10:19 10/15/16 07:30 Intake and Output: 10/15/16 10/15/16 06:59 18:59 Intake Total 2363 Balance 2363 - Medications Medications: Current Medications Sodium Chloride (Sodium Chloride 0.9%) 1,000 mls @ 70 mls/hr IV .[id number] [facility] Last Admin: 10/15/16 15:30 Dose: 70 mls/hr Amikacin Sulfate 350 mg/ (Sodium Chloride) 101.4 mls @ 204 mls/hr IVPB Q24H [facility] PRN Reason: Protocol Last Admin: 10/15/16 12:15 Dose: 204 mls/hr Vancomycin HCl 0.8 gm/ Sodium (Chloride) 250 mls @ 166.667 mls/hr IVPB Q12H [facility] Last Admin: 10/15/16 15:01 Dose: 166.667 mls/hr Insulin Human Lispro (Humalog Med) 0 units SC ACHS [facility] PRN Reason: Protocol Last Admin: 10/15/16 12:14 Dose: 1 units Magnesium Oxide (Mag-Ox) 400 mg PO DAILY [facility] Last Admin: 10/15/16 10:18 Dose: 400 mg Metoprolol Tartrate (Lopressor) 25 mg PO BID [facility] Last Admin: 10/15/16 10:19 Dose: 25 mg Montelukast Sodium (Singulair) 10 mg PO HS [facility] Last Admin: 10/14/16 22:15 Dose: 10 mg Non-Formulary Medication (Protein Supplement [Prosource]) 30 ml PO BID [facility] Last Admin: 10/15/16 10:19 Dose: Not Given Oxycodone/Acetaminophen (Percocet 5/325 Mg Tab) 1 tab PO Q4H PRN PRN Reason: Pain, severe (8-10) Stop: 10/17/16 22:24 Last Admin: 10/15/16 00:21 Dose: 1 tab Pregabalin (Lyrica) 25 mg PO BID [facility] Last Admin: 10/15/16 10:18 Dose: 25 mg Vitamin B Complex/Vit C/Folic Acid (Nephro-Shereen) 1 tab PO DAILY [facility] Last Admin: 10/15/16 10:18 Dose: 1 tab - Labs Labs: 10/15/16 06:10 10/15/16 06:10 PT 13.4 Seconds (9.9-11.8) H 10/14/16 06:20 INR 1.24 (0.93-1.08) H 10/14/16 06:20 APTT 99.6 Seconds (23.7-30.8) H* 10/15/16 06:10 - Constitutional Appears: Well, Non-toxic, No Acute Distress - Extremities Exam Additional comments: Left lower extremity focused exam: VASC- DP and PT pulses weakly palpable-palpable, capillary refill < 5 sec to digits x 5, mild +1 edema noted to leg and dorsum of foot, NEURO-Gross pedal sensation is diminished DERM- Dorsal foot wound and anterior ankle wound partial thickness ulceration measuring approximately 12 x 20 cm with mixed fibo-granular base. with mildly hyperkeratotic margins. wound is absent undermining. Expressing serous drainage. Dior-wound skin is fully epithelialized though not fully pigmented. Moderate mal-odor noted. - Neurological Exam Neurological Exam: Alert, Awake, Oriented x3 - Psychiatric Exam Psychiatric exam: Normal Affect, Normal Mood Assessment and Plan - Assessment and Plan (Free Text) Assessment: 81 year old female with Left leg partial thickness ulcer graded secondary to chronic venous insufficiency; Left leg cellulitis, improving. Plan: Patient seen and evaluated Labs and vitals reviewed: afebrile, no leukocytosis. Left leg re-dressed with wet-to-dry saline:betadine mixture, ABD, & DSD. Left leg wound culture- shows E. coli, Proteus Mirabilis, & MRSA. Patient to continue receiving IV Tigecycline. Per ID recommendations pt to be d/ c back to nursing facility with Bactrim DS and IV Amikacin. -Cellulits has largely resolved, and local wound care with mechanical debrisement has improved the infection of the wound base. Pt has declined surgical debridement at this time. Instructions sent to nursing facility detailing wound care instructions. Discussed patient with attending, Dr. Mckeon Pt is stable for discharge to [facility] per podiatry. Will follow up with Dr. Shan Mckeon DPM at regular scheduled intervals at [facility].
--- NOTE | 2016-10-15 18:07 | CP.PCM.PN ---
Subjective - Date & Time of Evaluation Date of Evaluation: 10/15/16 Time of Evaluation: 16:00 - Subjective Subjective: Infectious Disease Follow Up: October 15, 2016 81 yo female well known to me sent from [facility] for Left lower leg cellulitis. Cultures at [facility] showing Serratia with sensitivities to Tygacil. Patient has had similar episodes in the past. Awaiting repeat wound cultures to return... showing MRSA, ESBL+ E. coli, and Proteus. The E. coli is sensitive to meropem Patient still with drainage from the left lower leg. Apparently, the patient refused debridement of the wounds of the left lower leg. The patient has PCN allergies. Objective - Vital Signs/Intake and Output Vital Signs (last 24 hours): Temp Pulse Resp BP Pulse Ox 98.1 F 61 20 135/78 94 L 10/15/16 07:30 10/15/16 10:19 10/15/16 07:30 10/15/16 10:19 10/15/16 07:30 Intake and Output: 10/15/16 10/15/16 06:59 18:59 Intake Total 2363 Balance 2363 - Labs Labs: 10/15/16 06:10 10/15/16 06:10 PT 13.4 Seconds (9.9-11.8) H 10/14/16 06:20 INR 1.24 (0.93-1.08) H 10/14/16 06:20 APTT 99.6 Seconds (23.7-30.8) H* 10/15/16 06:10 - Constitutional Appears: Non-toxic, No Acute Distress, Chronically Ill - Head Exam Head Exam: ATRAUMATIC, NORMOCEPHALIC - Eye Exam Eye Exam: EOMI, PERRL Pupil Exam: NORMAL ACCOMODATION, PERRL - ENT Exam ENT Exam: Mucous Membranes Moist, Normal External Ear Exam, TM's Normal Bilaterally - Neck Exam Neck Exam: Full ROM, Normal Inspection - Respiratory Exam Respiratory Exam: Clear to Ausculation Bilateral, NORMAL BREATHING PATTERN. absent: Rales, Rhonchi, Wheezes - Cardiovascular Exam Cardiovascular Exam: REGULAR RHYTHM, RRR, +S1, +S2 - GI/Abdominal Exam GI & Abdominal Exam: Soft, Normal Bowel Sounds. absent: Distended, Tenderness - Extremities Exam Additional comments: Left lower leg cellulitis from toes to just about mid romeo... nearly circumferential. Very mild improvement. Still draining. - Neurological Exam Neurological Exam: Alert, Awake, CN II-XII Intact, Oriented x3 - Psychiatric Exam Psychiatric exam: Normal Affect, Normal Mood - Skin Skin Exam: Intact, Normal Color Assessment and Plan - Assessment and Plan (Free Text) Assessment: 81 yo female with left lower leg cellulitis with multiple drug allergies. She has chronic ulcerations of the left lower leg with drainage. Chronic venous stasis. Continued on Tigecycline for now. Supportive care. Local wound care. Awaiting repeat wound cultures... showing moderate gram negative rods x 2. Still with drainage. Potential debridement of the left lower leg but patient apparently refused. To go back to nursing facility with Bactrim DS and IV Amikacin. The patient with PCN allergies. Limited ability to treat with antibiotics especially given the patient's allergies. Will treat for 14 days more. The chances that the wounds will heal with antibiotics alone are slim without debridement. Patient is aware of my opinion. Thank you for allowing me to participate in the care of the patient, we will follow with you.
--- NOTE | 2016-10-16 16:53 | PQF SEPSIS ---
10/16/16 Dr. Davey, Sepsis is mentioned in podiatry consult of 10/14. Was sepsis ruled out, ruled in , other, undetermined? If sepsis was ruled in, was this present on admission? Thank you. Clarification of your documentation is requested to better reflect the severity of illness and intensity of treatment of your patient. Indicators present [] Temp < 96.8 or > 100.4 [] WBC count > 12,000/mm3 or <000/mm3 or 10% immature neutrophils [] Heart Rate > 90 [] Respiratory Rate > 20 [] Fever or hypothermia [x] Chills [] Positive blood cultures [] Hypotension [] Metabolic acidosis (Elevated lactate level, anion gap or reduced blood pH) [] Acute confusion /Altered Mental Status [] Shock [] Other: [] Location in the medical record that reflects the above clinical findings: [] Treatment Provided: [] PHYSICIAN'S RESPONSE Based on your medical judgment of the clinical indicators outlined above, are you treating this patient for a known or suspected: [x] Sepsis / Septicemia Please specify organism if known [] [] SIRS (Systemic Inflammatory Response Syndrome) [] Severe Sepsis (Sepsis with Associated Organ Dysfunction) [] Fever of Unknown Origin [] Other, please indicate: [] [] If Unable to Determine, please check the box, sign and date. Present On Admission (POA) Indicator: [] Present at the time of admission [] Not present at the time of admission [x] Clinically Undetermined In responding to this query, please exercise your independent professional judgment. The fact that a question is asked does not imply that any particular answer is desired or expected. Thank you for your clarification on this documentation. If you have any questions please call:[ ] * Thank you, [ ] regional training manager LUIS FELIPE
== END 2016-10-15 17:15 | DRG 637 ==
LOC: ED 11:16 → ERH 15:03 → 5RNO 16:27
PROVIDERS: ADMIT Hospitalist; ATTEND Internal Medicine
PROC: 02HV33Z Insertion of Infusion Device into Superior Vena Cava, Percutaneous Approach (ICD-10-PCS; principal; 2016-10-15)
PROC: B548ZZA Ultrasonography of Superior Vena Cava, Guidance (ICD-10-PCS; 2016-10-15)
PROC: B51NZZA Fluoroscopy of Left Upper Extremity Veins, Guidance (ICD-10-PCS; 2016-10-15)
DX: E11.622 Type 2 diabetes mellitus with other skin ulcer (principal); A41.9 Sepsis, unspecified organism; L97.929 Non-pressure chronic ulcer of unspecified part of left lower leg with unspecified severity; E11.22 Type 2 diabetes mellitus with diabetic chronic kidney disease; F03.90 Unspecified dementia, unspecified severity, without behavioral disturbance, psychotic disturbance, mood disturbance, and anxiety; E11.40 Type 2 diabetes mellitus with diabetic neuropathy, unspecified; L03.116 Cellulitis of left lower limb; I87.2 Venous insufficiency (chronic) (peripheral); N31.9 Neuromuscular dysfunction of bladder, unspecified; I48.2 Chronic atrial fibrillation; E03.9 Hypothyroidism, unspecified; I12.9 Hypertensive chronic kidney disease with stage 1 through stage 4 chronic kidney disease, or unspecified chronic kidney disease; I83.029 Varicose veins of left lower extremity with ulcer of unspecified site; I87.8 Other specified disorders of veins; J30.2 Other seasonal allergic rhinitis; J44.9 Chronic obstructive pulmonary disease, unspecified; K21.9 Gastro-esophageal reflux disease without esophagitis; M10.9 Gout, unspecified; M85.80 Other specified disorders of bone density and structure, unspecified site; N18.9 Chronic kidney disease, unspecified; Z66 Do not resuscitate; Z79.4 Long term (current) use of insulin; Z87.891 Personal history of nicotine dependence; Z88.0 Allergy status to penicillin; Z95.0 Presence of cardiac pacemaker; Z88.2 Allergy status to sulfonamides; Z88.7 Allergy status to serum and vaccine; Z91.018 Allergy to other foods; B96.4 Proteus (mirabilis) (morganii) as the cause of diseases classified elsewhere; B96.89 Other specified bacterial agents as the cause of diseases classified elsewhere; R39.15 Urgency of urination; B96.20 Unspecified Escherichia coli [E. coli] as the cause of diseases classified elsewhere; B95.62 Methicillin resistant Staphylococcus aureus infection as the cause of diseases classified elsewhere

== ENCOUNTER 2016-11-27 10:03 | Inpatient (IN) | payer MEDICARE, MEDICAID ==
[2016-11-27] MEDS ORDERED: Sodium Chloride 0.9% 1,000 ML IV ONE (10:49)
--- NOTE | 2016-11-27 11:39 | ED PDOC ---
Arrival/HPI - General Chief Complaint: Abnormal Labs Time Seen by Provider: 11/27/16 10:19 Historian: Patient, Halfway - History of Present Illness Narrative History of Present Illness (Text): 11/27/16 10:37 Leta Lorenzo is an 81 year old female, whose past medical history includes diabetes, was advised to come to the emergency department by Dr. Sparks for a PICC line, from [facility] for an infected wound in her leg. Patient reports she is on antibiotics but is unaware of the name. Currently her BUN is elevated to 70 and white count is 15. Patient denies chest pain, shortness of breath, headache, fever, chills, cough, nausea, vomiting, diarrhea , abdominal pain, dizziness or lightheadedness Time/Duration: Other (adviced to come in by Dr. Sparks) Symptom Course: Improving Activities at Onset: Rest Modifying Factors (Text): None Context: Home Associated Symptoms (Text): None Past Medical History - Provider Review Nursing Documentation Reviewed: Yes - Infectious Disease Hx of Infectious Diseases: None - Tetanus Immunization Tetanus Immunization: Unknown - Reproductive Menopause: Yes - Cardiac Hx Cardiac Disorders: Yes (AFib) Hx Hypertension: Yes - Pulmonary Hx Respiratory Disorders: Yes Hx Chronic Obstructive Pulmonary Disease (COPD): Yes - Neurological Hx Neurological Disorder: Yes Hx Dementia: Yes - HEENT Hx HEENT Disorder: Yes Hx Cataracts: Yes (BILATERAL SURGERY) - Renal Hx Renal Disorder: Yes Hx Neurogenic Bladder: Yes - Endocrine/Metabolic Hx Endocrine Disorders: Yes Hx Diabetes Mellitus Type 2: Yes - Hematological/Oncological Hx Blood Disorders: Yes Hx Anemia: Yes - Integumentary Hx Dermatological Disorder: Yes (CELLULITIS,LEFT VENOUS STASIS ULCER) Other/Comment: cellulitis left ankle wound, left foot red and +2 edema, foul smelling dng noted to left ankle wound - Musculoskeletal/Rheumatological Hx Musculoskeletal Disorders: Yes Hx Falls: Yes - Gastrointestinal Hx Gastrointestinal Disorders: Yes Hx Gastroesophageal Reflux: Yes - Genitourinary/Gynecological Hx Genitourinary Disorders: Yes (URGENCY) - Psychiatric Hx Psychophysiologic Disorder: No Hx Substance Use: No - Past Surgical History Past Surgical History: Non-Contributing - Surgical History Other/Comment: LEFT FOOT SURGERY,PICC 01-09-14 - Anesthesia Hx Anesthesia Reactions: No Hx Malignant Hyperthermia: No - Suicidal Assessment Feels Threatened In Home Enviroment: No Family/Social History - Physician Review Nursing Documentation Reviewed: Yes Family/Social History: Unknown Family HX Smoking Status: Never Smoked Hx Alcohol Use: No Hx Substance Use: No Hx Substance Use Treatment: No Allergies/Home Meds Allergies/Adverse Reactions: Allergies banana Allergy (Verified 11/27/16 15:17) RASH Influenza Virus Vaccines Allergy (Verified 11/27/16 15:17) RASH kiwi Allergy (Verified 11/27/16 15:17) RASH Penicillins Allergy (Verified 11/27/16 15:17) RASH pneumococcal vaccine Allergy (Verified 11/27/16 15:17) RASH strawberry Allergy (Verified 11/27/16 15:17) RASH Sulfa (Sulfonamide Antibiotics) Allergy (Verified 11/27/16 15:17) RASH tomato Allergy (Verified 11/27/16 15:17) RASH Home Medications: Home Meds Medication Instructions Recorded Confirmed Vitamin B Complex/Vit C/Folic 1 tab PO DAILY 08/25/15 06/28/16 [Nephro-Shereen] Insulin Lispro Mix 75/25 [HumaLOG 5 units SC ACD 10/04/15 11/27/16 Mix 75/25] Protein Supplement [Prosource] 30 ml PO BID 10/04/15 11/27/16 Review of Systems - Physician Review All systems were reviewed & negative as marked: Yes - Review of Systems Constitutional: absent: Fevers Respiratory: absent: SOB Cardiovascular: absent: Chest Pain Musculoskeletal: Other (leg infection. Reports to Emergency department for PICC line) Physical Exam Vital Signs Reviewed: Yes Vital Signs Temp Pulse Resp BP Pulse Ox 11/27/16 10:25 98.3 F 96 H 16 120/72 96 Temperature: Afebrile Blood Pressure: Normal Pulse: Tachycardic Respiratory Rate: Normal Appearance: Positive for: Well-Appearing, Non-Toxic, Comfortable Pain Distress: None Mental Status: Positive for: Alert and Oriented X 3 - Systems Exam Head: Present: Atraumatic, Normocephalic Pupils: Present: PERRL Extroacular Muscles: Present: EOMI Conjunctiva: Present: Normal Mouth: Present: Moist Mucous Membranes Neck: Present: Normal Range of Motion Respiratory/Chest: Present: Clear to Auscultation, Good Air Exchange. No: Respiratory Distress, Accessory Muscle Use Cardiovascular: Present: Regular Rate and Rhythm, Normal S1, S2. No: Murmurs Abdomen: Present: Normal Bowel Sounds. No: Tenderness, Distention, Peritoneal Signs Back: Present: Normal Inspection Upper Extremity: Present: Normal Inspection. No: Cyanosis, Edema Lower Extremity: Present: Normal Inspection, Other (left leg cellulitis with abnormal blood work). No: Edema Neurological: Present: GCS=15, CN II-XII Intact, Speech Normal Skin: Present: Warm, Dry, Normal Color. No: Rashes Psychiatric: Present: Alert, Oriented x 3, Normal Insight, Normal Concentration Medical Decision Making ED Course and Treatment: 11/27/16 10:37 Impression: 81 year old female with leg infection and is here for PICC line following advice of Dr. Sparks. Differential Diagnosis included but are not limited to: Left leg cellulitis r/ o Sepsis Plan: -- EKG -- Chest X-ray -- Labs -- Urinalysis -- Sodium Chloride -- Reassess and disposition Progress Notes: EKG: Ordered, reviewed, and independently interpreted the EKG. Rate : 91 BPM Rhythm : NSR Interpretation : bifascicular block with no changes in previous EKG. 11/27/16 13:00 Hyperkalemia treated with Kayexlate, Insulin, Dextrose and Albuterol. Pateint's WBC was elevated and BUN elevated. Previous ID note showed treated with Amikacin which was ordered. [facility] for more coverage. Continus IVF hydration. Case discussed with Dr. Jerry who will admitt to telemetry for cellulitis and hyperkalemia. 11/27/16 13:25 Chest X-ray: Creator : Vitaly Cheney MD COMPARISON: 12/06/2015 FINDINGS: LUNGS: No active pulmonary disease. PLEURA: No significant pleural effusion identified, no pneumothorax apparent. CARDIOVASCULAR: Mild to moderate cardiomegaly OSSEOUS STRUCTURES: No significant abnormalities. VISUALIZED UPPER ABDOMEN: Normal. OTHER FINDINGS: Single lead pacemaker IMPRESSION: No active disease. 11/27/16 13:58 Was called immediately to bedside by RN Demi and EMT Guanako because patient stopped breathing and was vomiting. On arrival to bedside patient was vomiting and there was no pulse palpable on exam. Facial color was pale. Patient is DNR but not DNI. Patient was suctioned and prepared for intubation. Patient quickly regained pulse after suctioning but still not responding to verbal or painful stimuli. Ultrasound showed good cardiac wall motion. Patient was intubated by Resident Efrain Desai with my supervision. No complications. See procedure note below. 11/27/16 14:20 Post intubation patient was given 4mg IV Versed. Then started on a Propofol drip. Case was discussed with Fan Grissom from ICU who accepted her to ICU. - Critical Care Critical Care Minutes: 45 minutes - Lab Interpretations Lab Results: 11/27/16 11:44 11/27/16 11:44 Lab Results 11/27/16 11:44: Sodium 131 L, Chloride 99, Potassium 5.7 H* D, Carbon Dioxide 25 , Anion Gap 13, BUN 71 H, Creatinine 1.4, Est GFR ( Amer) 43, Est GFR ( Non-Af Amer) 36, Random Glucose 287 H, Calcium 8.2 L, Phosphorus 4.7 H, Magnesium 2.5 H, Total Bilirubin 0.7, AST 42 H, ALT 26, Alkaline Phosphatase 154 H, Total Protein 7.2, Albumin 3.0, Globulin 4.1, Albumin/Globulin Ratio 0.7 L 11/27/16 11:44: pO2 38, VBG pH 7.27 L, VBG pCO2 52.0, VBG HCO3 23.9, VBG Total CO2 25.5, VBG O2 Sat (Calc) 71.4 H, VBG Base Excess -3.3 L, VBG Potassium 6.6 H* , Sodium 144.0, Chloride 90.0 L, Glucose 302 H, Lactate 1.6, FiO2 21.0, Venous Blood Potassium 6.6 H* 11/27/16 11:44: Urine Color Yellow, Urine Appearance Clear, Urine pH 6.0, Ur Specific [place] 1.015, Urine Protein Negative, Urine Glucose (UA) Negative, Urine Ketones Negative, Urine Blood Moderate H, Urine Nitrate Negative, Urine Bilirubin Negative, Urine Urobilinogen 0.2, Ur Leukocyte Esterase Negative, Urine RBC 1 - 3, Urine WBC Negative, Ur Epithelial Cells 0 - 2, Urine Bacteria Trace 11/27/16 11:44: PT 13.2 H, INR 1.22 H, APTT 35.7 H 11/27/16 11:44: WBC 13.7 H D, RBC 3.96, Hgb 10.9 L, Hct 34.5 L, MCV 87.1, MCH 27.5, MCHC 31.6, RDW 15.9 H, Plt Count 242, MPV 11.2 H, Gran % 86.7 H, Lymph % ( Auto) 6.6 L, [place] % (Auto) 5.8, Eos % (Auto) 0.6 L, Baso % (Auto) 0.3, Gran # 11.84 H, Lymph # 0.9 L, [place] # 0.8 H, Eos # 0.1, Baso # 0.04 I have reviewed the lab results: Yes - RAD Interpretation Radiology Orders: 11/27/16 10:49 CHEST PORTABLE [RAD] Stat Chemical Strength Tester: Radiologist - EKG Interpretation Interpreted by ED Physician: Yes Type: 12 lead EKG - Medication Orders Current Medication Orders: Heparin Sodium (Porcine) (Heparin) 5,000 units SC Q12 KEO PRN Reason: Protocol Propofol (Diprivan) 1,000 mg in 100 mls @ 2.089 mls/hr IV .Q24H PRN; Protocol; 5 MCG/KG/MIN PRN Reason: TITRATE PER MD ORDER Last Admin: 11/27/16 14:51 Dose: 5 mcg/kg/min, 2.089 mls/hr Sodium Chloride (Sodium Chloride 0.9%) 1,000 mls @ 100 mls/hr IV .Q10H KEO Vancomycin HCl (Vancomycin 1gm) 1 gm in 250 mls @ 167 mls/hr IVPB DAILY KEO PRN Reason: Protocol Insulin Human Regular (Humulin R Low) 0 units SC ACHS KEO PRN Reason: Protocol Pantoprazole Sodium (Protonix Inj) 40 mg IVP DAILY KEO Discontinued Medications Albuterol Sulfate (Albuterol 0.083% Inhal Shira (2.5 Mg/3 Ml) Ud) 2.5 mg INH STAT STA Stop: 11/27/16 12:36 Last Admin: 11/27/16 13:45 Dose: 2.5 mg Dextrose (Dextrose 50% Inj) 50 ml IVP STAT STA Stop: 11/27/16 12:36 Last Admin: 11/27/16 13:25 Dose: 50 ml Sodium Chloride (Sodium Chloride 0.9%) 1,000 mls @ 2,000 mls/hr IV .Q30M ONE Stop: 11/27/16 11:18 Last Admin: 11/27/16 11:30 Dose: 2,000 mls/hr Amikacin Sulfate 350 mg/ (Sodium Chloride) 101.4 mls @ 204 mls/hr IVPB ONCE ONE PRN Reason: Protocol Stop: 11/27/16 14:29 Vancomycin HCl (Vancomycin 1gm) 1 gm in 250 mls @ 167 mls/hr IVPB STAT STA PRN Reason: Protocol Stop: 11/27/16 14:17 Last Admin: 11/27/16 13:25 Dose: 167 mls/hr Propofol (Diprivan) 1,000 mg in 100 mls @ 1.769 mls/hr IV .Q24H PRN; Protocol; 5 MCG/KG/MIN PRN Reason: TITRATE PER MD ORDER Insulin Human Regular (Humulin R) 10 units IVP STAT STA Stop: 11/27/16 12:36 Last Admin: 11/27/16 13:25 Dose: 10 units Midazolam HCl (Versed Inj) Confirm Administered Dose 5 mg .ROUTE .STK-MED ONE Stop: 11/27/16 14:14 Last Admin: 11/27/16 14:35 Dose: Midazolam HCl (Versed Inj) 4 mg IVP STAT STA Stop: 11/27/16 14:19 Last Admin: 11/27/16 14:15 Dose: 4 mg Sodium Polystyrene Sulfonate (Kayexalate Oral Susp) 30 gm PO STAT STA Stop: 11/27/16 12:36 Last Admin: 11/27/16 13:25 Dose: 30 gm - Procedure PROCEDURE NOTE (Text): 11/27/16 14:10 PROCEDURE: INTUBATION Performed by the emergency provider Dr. Efrain Desai with my supervision Time: 14:10 Consent: Discussion of the risks, benefits, and alternatives to the procedure, along with informed consent was precluded by the urgency of the procedure and the patient condition. Timeout: A timeout to verify the correct patient, procedure, and site was performed. Indication: Glidescope was used Pre-oxygenation: [id number] Medications: Patient was not pre-meditated ETT Size: 7.5 Confirmation: Cords directly visualized as tube passed, good bilateral breath sounds, positive CO2 detector color change, tube fogging, adequate chest rise, improving pulse oximetry reading, improved skin color, and absence of gastric sounds,. ETT Secured: The cuff was inflated and the tube was secured appropriately at a distance of 22 cm at the lip. Post-Procedure: There were no immediate complications. CXR Confirmation: Yes - Scribe Statement The provider has reviewed the documentation as recorded by the Scribe 11/27/2016 Zee Hernández Provider Scribe Attestation: All medical record entries made by the Scribe were at my direction and personally dictated by me. I have reviewed the chart and agree that the record accurately reflects my personal performance of the history, physical exam, medical decision making, and the department course for this patient. I have also personally directed, reviewed, and agree with the discharge instructions and disposition. Disposition/Present on Arrival - Present on Arrival Any Indicators Present on Arrival: Yes History of DVT/PE: No History of Uncontrolled Diabetes: Yes Urinary Catheter: Yes History of Decub. Ulcer: No History Surgical Site Infection Following: CABG - Mediastinitis, None - Disposition Have Diagnosis and Disposition been Completed?: Yes Diagnosis: Cellulitis of leg, Aspiration into airway, Respiratory distress Disposition: HOSPITALIZED Disposition Time: 15:36 Patient Plan: Admission Condition: CRITICAL
[2016-11-27 12:07] LABS: BASO # 0.04 K/mm3 (0.0-2.0); BASO % 0.3 % (0.0-3.0); EOS # 0.1 (0.0-0.7); EOS % 0.6 % (1.5-5.0); GRAN # 11.84 (1.4-6.5); GRAN % 86.7 % (50.0-68.0); HEMOGLOBIN 10.9 gm/dL (12.0-16.0); LYMPH # 0.9 (1.2-3.4); LYMPH % 6.6 % (22.0-35.0); MEAN CELL VOLUME 87.1 fL (80.0-105.0); MEAN CORPUSCULAR HEMOGLOBIN 27.5 pg (25.0-35.0); MEAN CORPUSCULAR HGB CONC 31.6 g/dl (31.0-37.0); MEAN PLATELET VOLUME 11.2 fl (7.0-11.0); MONO # 0.8 (0.1-0.6); MONO % 5.8 % (1.0-6.0); PLATELET COUNT 242 10^3/uL (120.0-450.0); RBC 3.96 10^6/uL (3.5-6.1); RED CELL DISTRIBUTION WIDTH 15.9 % (11.5-14.5); WHITE BLOOD COUNT 13.7 10^3/ul (4.5-11.0)
[2016-11-27 12:09] LABS: URINE BILIRUBIN NEGATIVE (NEGATIVE); URINE BLOOD MODERATE (NEGATIVE); URINE GLUCOSE (UA) NEGATIVE (NEGATIVE); URINE LEUKOCYTE ESTERASE NEGATIVE Leu/uL (NEGATIVE); URINE NITRATE NEGATIVE (NEGATIVE); URINE PROTEIN NEGATIVE mg/dL (<30 mg/dL); URINE UROBILINOGEN 0.2 E.U./dL (<1 E.U./dL)
[2016-11-27 12:10] LABS: VENOUS BLOOD GAS BASE EXCESS -3.3 mmol/L (0.0-2.0); VENOUS BLOOD GAS PO2 38 mm/Hg (30-55); VENOUS BLOOD PH 7.27 (7.32-7.43)
[2016-11-27 12:19] LABS: INR 1.22 (0.93-1.08); PARTIAL THROMBOPLASTIN TIME 35.7 Seconds (23.7-30.8); PROTHROMBIN TIME 13.2 Seconds (9.9-11.8); URINE APPEARANCE CLEAR (CLEAR); URINE COLOR YELLOW (YELLOW)
[2016-11-27 12:20] LABS: URINE BACTERIA TRACE (NEG); URINE EPITHELIAL CELLS 0 - 2 /hpf (0-5); URINE WBC NEGATIVE /hpf (0-6)
[2016-11-27 12:30] LABS: ALB/GLOB RATIO 0.7 (1.1-1.8); CALCIUM 8.2 mg/dL (8.4-10.5); MAGNESIUM 2.5 mg/dL (1.7-2.2)
[2016-11-27] MEDS ORDERED: Dextrose 50% SYRINGE Inj (50 ml) IVP STA (12:35)
[2016-11-27] MEDS ORDERED: Insulin Regular 1 UNITS/0.01 ML ML IVP STA (12:35)
[2016-11-27] MEDS ORDERED: Albuterol 0.083% Inhal Sol (2.5 mg/3 mL) UD INH STA (12:35)
[2016-11-27] MEDS ORDERED: Sod Polystyrene Sulf 15 gm/60 ml Oral Susp PO STA (12:35)
[2016-11-27] MEDS ORDERED: Vancomycin 1gm in NS 250ml 1 GM/250 ML BAG IVPB STA (12:48)
--- NOTE | 2016-11-27 13:22 | RAD ---
HISTORY: Sepsis Patient COMPARISON: 12/06/2015 FINDINGS: LUNGS: No active pulmonary disease. PLEURA: No significant pleural effusion identified, no pneumothorax apparent. CARDIOVASCULAR: Mild to moderate cardiomegaly OSSEOUS STRUCTURES: No significant abnormalities. VISUALIZED UPPER ABDOMEN: Normal. OTHER FINDINGS: Single lead pacemaker IMPRESSION: No active disease.
[2016-11-27] MEDS ORDERED: Midazolam 5 MG/5 ML VIAL ONE (14:13)
[2016-11-27] MEDS ORDERED: Midazolam 2 MG/2 ML VIAL IVP STA (14:18)
[2016-11-27] MEDS ORDERED: Propofol 10 mg/ml 1,000 MG/100 ML VIAL IV PRN ×2 (14:24→14:51)
--- NOTE | 2016-11-27 14:57 | RAD ---
HISTORY: tube placement COMPARISON: 11/27/2016 in o'clock a.m. FINDINGS: LUNGS: Study is rotated towards the left as before. No gross consolidation seen. Evaluation of the left lung base retrocardiac region somewhat limited. However no obscuration of left hemidiaphragm is noted currently PLEURA: No significant pleural effusion identified, no pneumothorax apparent. CARDIOVASCULAR: Mild cardiomegaly -similar Pulmonary vasculature borderline prominent OSSEOUS STRUCTURES: No significant abnormalities. VISUALIZED UPPER ABDOMEN: Normal. OTHER FINDINGS: Single lead pacemaker in place. Endotracheal tube insertion tip for approximately 4.5 cm from the gianluca. NG tube inserted tip in stomach IMPRESSION: Interval support tubes placed-satisfactory No interval pathology appreciated
[2016-11-27] MEDS ORDERED: Sodium Chloride 0.9% 1,000 ML IV SCH (15:15)
[2016-11-27 15:18] LABS: ARTERIAL BLOOD GAS HCO3 16.4 mmol/L (21-28); ARTERIAL BLOOD GAS HEMOGLOBIN 10.3 g/dL (11.7-17.4); ARTERIAL BLOOD GAS O2 CAPACITY 14.1 mL/dl (16-24); ARTERIAL BLOOD GAS O2 CONTENT 13.8 ML/dl (15-23); ARTERIAL BLOOD GAS PCO2 29 mm/Hg (35-45); ARTERIAL BLOOD GAS PH 7.36 (7.35-7.45); ARTERIAL BLOOD GAS TCO2 17.3 mmol.L (22-28)
[2016-11-27] MEDS ORDERED: Sodium Chloride 0.9% 1,000 ML IV STA ×3 (15:41→21:05)
--- NOTE | 2016-11-27 16:25 | CP.PCM.HP ---
<Ann-MarieWei - Last Filed: 11/27/16 17:40> History of Present Illness - History of Present Illness History of Present Illness: Ms. Lorenzo is an 81 y/o female with a PMHx specifically significant for DM, who presents to the ER from [facility] with a complaint of L LE cellulitis. She was advised to come to the emergency department by Dr. Sparks for a PICC line. Patient reports she is on antibiotics but does not recall which ones. She presented on 10/10/2016 with the same complaint and was discharged on ABx, but the infection has gotten worse since her discharge. 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 Patient denies chest pain, shortness of breath, headache, fever, chills, cough, nausea, vomiting, diarrhea, abdominal pain, dizziness or lightheadedness. Of note, patient had acute respiratory distress after Vancomycin was adminstered , vomited, and had to be intubated. CXR was ordered and bilateral breath sounds were auscultated to confirm proper placement of tube. PSHx: Pt denies PMHx: HTN, Cataracts, A-Fib, COPD, Neurogenic bladder All: PCN's SocHx: Pt denies smoking, pt denies etoh, pt denies illicits FamHx: DM Meds: Eliquis, Metformin, Regular Insulin, Tylenol occasionally, Allopurinol, Metoprolol Present on Admission - Present on Admission Any Indicators Present on Admission: No Review of Systems - Hematologic/Lymphatic Additional comments: ROS: Constitutional: pt denies fever, chills, generalized weakness ENT: pt denies dysphagia, otalgia, hearing deficit, rhinorrhea Eyes: +patient states she has bilateral cataracts. pt denies sudden loss of vision, diplopia, blurred vision MSK: pt denies muscle stiffness, joint pain, extremity cramping Cardio: pt denies sob, heart murmur, cp Pulm: pt denies cough, hemoptysis, wheeze GI: pt denies loss of appetite, abdominal pain, constipation, melena, n/v/d : pt denies burning on urination, urinary frequency, hematuria, urinary urgency Neuro: pt denies paresis, paresthesia, dizziness, carroll, numbness, tingling Derm: +See HPI Endo: pt denies intolerance to heat/cold, diaphoresis, night sweats, polydipsia Psych: pt denies anxiety, depression, mood changes Past Patient History - Infectious Disease Hx of Infectious Diseases: None - Tetanus Immunizations Tetanus Immunization: Unknown - Past Medical History & Family History Past Medical History?: Yes - Past Social History Smoking Status: Never Smoked - CARDIAC Hx Cardiac Disorders: Yes (AFib) Hx Hypertension: Yes - PULMONARY Hx Respiratory Disorders: Yes Hx Chronic Obstructive Pulmonary Disease (COPD): Yes - NEUROLOGICAL Hx Neurological Disorder: Yes Hx Dementia: Yes - HEENT Hx HEENT Problems: Yes Hx Cataracts: Yes (BILATERAL SURGERY) - RENAL Hx Chronic Kidney Disease: Yes Hx Neurogenic Bladder: Yes - ENDOCRINE/METABOLIC Hx Endocrine Disorders: Yes Hx Diabetes Mellitus Type 2: Yes - HEMATOLOGICAL/ONCOLOGICAL Hx Blood Disorders: Yes Hx Anemia: Yes - INTEGUMENTARY Hx Dermatological Problems: Yes (CELLULITIS,LEFT VENOUS STASIS ULCER) Other/Comment: cellulitis left ankle wound, left foot red and +2 edema, foul smelling dng noted to left ankle wound - MUSCULOSKELETAL/RHEUMATOLOGICAL Hx Musculoskeletal Disorders: Yes Hx Falls: Yes - GASTROINTESTINAL Hx Gastrointestinal Disorders: Yes Hx Gastroesophageal Reflux: Yes - GENITOURINARY/GYNECOLOGICAL Hx Genitourinary Disorders: Yes (URGENCY) - PSYCHIATRIC Hx Psychophysiologic Disorder: No Hx Substance Use: No - SURGICAL HISTORY Other/Comment: LEFT FOOT SURGERY,PICC 01-09-14 - ANESTHESIA Hx Anesthesia Reactions: No Hx Malignant Hyperthermia: No Meds Allergies/Adverse Reactions: Allergies Allergy/AdvReac Type Severity Reaction Status Date / Time banana Allergy RASH Verified 11/27/16 19:31 Influenza Virus Vaccines Allergy RASH Verified 11/27/16 19:31 kiwi Allergy RASH Verified 11/27/16 19:31 Penicillins Allergy RASH Verified 11/27/16 19:31 pneumococcal vaccine Allergy RASH Verified 11/27/16 19:31 strawberry Allergy RASH Verified 11/27/16 19:31 Sulfa (Sulfonamide Allergy RASH Verified 11/27/16 19:31 Antibiotics) tomato Allergy RASH Verified 11/27/16 19:31 Physical Exam - Additional Findings Additional findings: Phys Exam: VS as above Constitutional: a&o x 4, nad Head and Neck: neck supple, no jvd, trachea midline, carotid midline, no cervical/head mass Eyes: bisi, nonicteric sclera, eom intact ENT: auditory acuity grossly intact, throat not congested, no nasal deformity Cardio: rrr, no m/r/g, no carotid bruit, nml s1, s2 Pulm: no accessory muscle use, equal nml breath sounds bilaterally, ctab Abd: s/nt/nd, nbs x 4 q, no palpable masses Derm: +LLE infection, see extremities exam Extr: +LLE swollen from 2 inches below the knee to entirety of foot. draining purulent discharge. spotty areas of infection throughout. no TTP, no los. pulses 2+ Neuro: cn II-XII grossly intact, ue and le 5/5 muscle strength bilaterally, no los ue, le bilaterally and core Results - Vital Signs Recent Vital Signs: Last Vital Signs Temp 98.3 F 11/27/16 10:25 Pulse 96 H 11/27/16 10:25 Resp 16 11/27/16 10:25 BP 120/72 11/27/16 10:25 Pulse Ox 96 11/27/16 10:25 - Labs Result Diagrams: 11/27/16 11:44 11/27/16 11:44 Labs: Laboratory Results - last 24 hr 11/27/16 15:09 pCO2 29 L pO2 84.0 HCO3 16.4 L ABG pH 7.36 ABG Total CO2 17.3 L ABG O2 Saturation 98.0 ABG O2 Content 13.8 L ABG Base Excess -8.0 L ABG Hemoglobin 10.3 L ABG Carboxyhemoglobin 2.3 H POC ABG HHb (Measured) 1.9 ABG Methemoglobin 1.0 ABG O2 Capacity 14.1 L Hgb O2 Saturation 94.7 L FiO2 60.0 Assessment & Plan - Assessment and Plan (Free Text) Assessment: Ms. Lorenzo is an 81 y/o female with a PMHx specifically significant for DM, who presents to the ER from [facility] with a complaint of L LE cellulitis. 1.) Acute Respiratory Distress - Intubated - most likely 2/2 Pneumonitis d/t Aspiration - Patient's ox sat was ___ - Patient admitted to ICU - Continue to monitor 2.) Left Lower Extremity Cellulitis - XR Left Foot - Wound Culture - RPT CBC, BMP - ID C/S (Dr. Alvares) - Podiatry C/S (Dr. Gilbert) - Abx: Aztreonam, Vanc 3.) Pre-renal ARIEL, likely 2/2 Dehydration - BUN 71, baseline 20s; Cr 1.4, baseline .7 - Nephro C/S - Urine Na - Urine Osm - Serum Osm - Serum Na - Fluids 4.) Hyperkalemia - ED at 5.7 - Insulin, Kayexelate, Albuterol given - Continue to monitor 5.) Leukocytosis without fever, likely 2/2 Cellulitis - Abx: Amikacin, Aztreonam, Meropenem and Vanc; active only Aztreonam and Vanc - Procalcitonin ordered - Blood, urine and wound cultures ordered - ID, Dr. Alvares consulted 6.) Hx/O HTN - Hold metoprolol for now, patient NPO and intubated 7.) Hx/O DM - Sliding scale insulin low dose; hold metformin 8.) Hx/O A-Fib - Hold eliquis for now 9.) DVT/GI PPHXS - IV Protonix/Heparin <Rosalino MORAES,Brisamaranaashley - Last Filed: 11/29/16 13:36> Results - Vital Signs Recent Vital Signs: Last Vital Signs Temp 98.7 F 11/28/16 23:46 Pulse 68 11/29/16 12:00 Resp 16 11/29/16 12:00 BP 123/48 L 11/29/16 11:27 Pulse Ox 99 11/29/16 12:00 - Labs Result Diagrams: 11/29/16 05:02 11/29/16 05:02 Labs: Laboratory Results - last 24 hr 11/28/16 11/28/16 11/28/16 13:54 17:58 21:20 WBC RBC Hgb Hct MCV MCH MCHC RDW Plt Count MPV Gran % Lymph % (Auto) Miller % (Auto) Eos % (Auto) Baso % (Auto) Gran # Lymph # Miller # Eos # Baso # Sodium Potassium Chloride Carbon Dioxide Anion Gap BUN Creatinine Est GFR ( Amer) Est GFR (Non-Af Amer) POC Glucose (mg/dL) 226 H 198 H 138 H Random Glucose Calcium Total Bilirubin AST ALT Alkaline Phosphatase Total Protein Albumin Globulin Albumin/Globulin Ratio 11/29/16 11/29/16 11/29/16 02:07 05:02 05:02 WBC 6.2 D RBC 3.03 L Hgb 8.2 L Hct 26.9 L MCV 88.8 MCH 27.1 MCHC 30.5 L RDW 16.4 H Plt Count 152 MPV 10.4 Gran % 84.6 H Lymph % (Auto) 8.4 L Miller % (Auto) 6.3 H Eos % (Auto) 0.5 L Baso % (Auto) 0.2 Gran # 5.27 Lymph # 0.5 L Miller # 0.4 Eos # 0.0 Baso # 0.01 Sodium 145 Potassium 4.0 Chloride 116 H Carbon Dioxide 22 Anion Gap 11 BUN 54 H Creatinine 1.3 Est GFR ( Amer) 47 Est GFR (Non-Af Amer) 39 POC Glucose (mg/dL) 116 H Random Glucose 120 H Calcium 7.6 L Total Bilirubin 0.3 AST 30 ALT 26 Alkaline Phosphatase 108 Total Protein 5.3 L Albumin 2.2 L Globulin 3.2 Albumin/Globulin Ratio 0.7 L 11/29/16 06:23 WBC RBC Hgb Hct MCV MCH MCHC RDW Plt Count MPV Gran % Lymph % (Auto) Miller % (Auto) Eos % (Auto) Baso % (Auto) Gran # Lymph # Miller # Eos # Baso # Sodium Potassium Chloride Carbon Dioxide Anion Gap BUN Creatinine Est GFR ( Amer) Est GFR (Non-Af Amer) POC Glucose (mg/dL) 131 H Random Glucose Calcium Total Bilirubin AST ALT Alkaline Phosphatase Total Protein Albumin Globulin Albumin/Globulin Ratio Attending/Attestation - Attestation I have personally seen and examined this patient.: Yes I have fully participated in the care of the patient.: Yes I have reviewed all pertinent clinical information: Yes Notes (Text): 11/29/16 13:30 Patient was seen and examined with medical billing service. Agreed with resident assessment and plan. 81 F HTN, Cataracts, A-Fib, COPD, Neurogenic bladder,DM, recurrent diabetic leg ulcer infection was transfered from [place] with worsening leg wound, was found to have hyperkalemia in ER and was intubated as patient vomited and has aspiration in ER.Patient is admitted to ICU.We will start patient on IV antibiotics Vancomycin and Aztreonam for leg cellulitis, we will get Podiatry and ID consultation.We will follow up cultures.We will also repeat patient BMP.ICU team is following the patient.
[2016-11-27] MEDS: Dexmedetomidine HCl 4mcg/ml 400 MCG/100 ML BOTTLE IV PRN (16:28)
[2016-11-27] MEDS: Aztreonam 1 Gm in NS 100mL 100 ML IVPB SCH ×2 (16:28→21:28)
--- NOTE | 2016-11-27 16:44 | CP.PCM.CON ---
<Kathleen Baker - Last Filed: 11/27/16 16:46> History of Present Illness - History of Present Illness History of Present Illness: 81 yo female with PMH of DM, chronic left leg cellulitis, pacemaker presented to ED with cellulitis require IV antibiotics. In ED patient was found to be hyperkalemic. After receiving medication patient began to vomiting most likely aspirating. Patient became hypoxic, she was intubated. History is limited due to intubation. PMH: a. fib, COPD, DM, chronic left leg cellulitis PSH: left foot surgery, pacemaker social hx: denied smoking, alcohol use allergy: banana, kiwi, penicillin, strawberry, sulfa, tomato Review of Systems - Review of Systems Systems not reviewed;Unavailable: Intubated Past Patient History - Infectious Disease Hx of Infectious Diseases: None - Tetanus Immunizations Tetanus Immunization: Unknown - Past Medical History & Family History Past Medical History?: Yes - Past Social History Smoking Status: Never Smoked - CARDIAC Hx Cardiac Disorders: Yes (AFib) Hx Hypertension: Yes - PULMONARY Hx Respiratory Disorders: Yes Hx Chronic Obstructive Pulmonary Disease (COPD): Yes - NEUROLOGICAL Hx Neurological Disorder: Yes Hx Dementia: Yes - HEENT Hx HEENT Problems: Yes Hx Cataracts: Yes (BILATERAL SURGERY) - RENAL Hx Chronic Kidney Disease: Yes Hx Neurogenic Bladder: Yes - ENDOCRINE/METABOLIC Hx Endocrine Disorders: Yes Hx Diabetes Mellitus Type 2: Yes - HEMATOLOGICAL/ONCOLOGICAL Hx Blood Disorders: Yes Hx Anemia: Yes - INTEGUMENTARY Hx Dermatological Problems: Yes (CELLULITIS,LEFT VENOUS STASIS ULCER) Other/Comment: cellulitis left ankle wound, left foot red and +2 edema, foul smelling dng noted to left ankle wound - MUSCULOSKELETAL/RHEUMATOLOGICAL Hx Musculoskeletal Disorders: Yes Hx Falls: Yes - GASTROINTESTINAL Hx Gastrointestinal Disorders: Yes Hx Gastroesophageal Reflux: Yes - GENITOURINARY/GYNECOLOGICAL Hx Genitourinary Disorders: Yes (URGENCY) - PSYCHIATRIC Hx Psychophysiologic Disorder: No Hx Substance Use: No - SURGICAL HISTORY Other/Comment: LEFT FOOT SURGERY,PICC 01-09-14 - ANESTHESIA Hx Anesthesia Reactions: No Hx Malignant Hyperthermia: No Meds Allergies/Adverse Reactions: Allergies Allergy/AdvReac Type Severity Reaction Status Date / Time banana Allergy RASH Verified 11/27/16 19:31 Influenza Virus Vaccines Allergy RASH Verified 11/27/16 19:31 kiwi Allergy RASH Verified 11/27/16 19:31 Penicillins Allergy RASH Verified 11/27/16 19:31 pneumococcal vaccine Allergy RASH Verified 11/27/16 19:31 strawberry Allergy RASH Verified 11/27/16 19:31 Sulfa (Sulfonamide Allergy RASH Verified 11/27/16 19:31 Antibiotics) tomato Allergy RASH Verified 11/27/16 19:31 - Medications Medications: Current Medications Albuterol/Ipratropium (Duoneb 3 Mg/0.5 Mg (3 Ml) Ud) 3 ml IH Q4 KEO Stop: 11/28/16 00:01 Heparin Sodium (Porcine) (Heparin) 5,000 units SC Q12 KEO PRN Reason: Protocol Vancomycin HCl (Vancomycin 1gm) 1 gm in 250 mls @ 167 mls/hr IVPB DAILY KEO PRN Reason: Protocol Dexmedetomidine HCl (Precedex 4 Mcg/Ml (100 Ml)) 400 mcg in 100 mls @ 3.481 mls /hr IV .Q24H PRN; Protocol; 0.2 MCG/KG/HR PRN Reason: Agitation Last Admin: 11/27/16 16:28 Dose: 0.2 mcg/kg/hr, 3.481 mls/hr Sodium Chloride (Sodium Chloride 0.9%) 1,000 mls @ 999 mls/hr IV .Q1H1M STA Stop: 11/27/16 16:41 Last Admin: 11/27/16 16:30 Dose: 999 mls/hr Sodium Chloride (Sodium Chloride 0.9%) 1,000 mls @ 999 mls/hr IV .Q1H1M STA Stop: 11/27/16 16:42 Aztreonam (Azactam 1 Gm) 100 mls @ 100 mls/hr IVPB Q8 KEO PRN Reason: Protocol Stop: 11/27/16 22:59 Last Admin: 11/27/16 16:28 Dose: 100 mls/hr Insulin Human Regular (Humulin R Low) 0 units SC ACHS KEO PRN Reason: Protocol Pantoprazole Sodium (Protonix Inj) 40 mg IVP DAILY [facility] Physical Exam - Constitutional Appears: No Acute Distress - Head Exam Head Exam: ATRAUMATIC, NORMOCEPHALIC - Eye Exam Eye Exam: EOMI, Normal appearance, PERRL - Respiratory Exam Respiratory Exam: Clear to Auscultation Bilateral, NORMAL BREATHING PATTERN. absent: Rales, Rhonchi, Wheezes Additional comments: intubation, PRVC mode - Cardiovascular Exam Cardiovascular Exam: REGULAR RHYTHM, +S1, +S2. absent: Tachycardia, Diastolic murmur, Systolic Murmur - GI/Abdominal Exam GI & Abdominal Exam: Normal Bowel Sounds, Soft. absent: Distended, Firm, Tenderness - Extremities Exam Extremities exam: Negative for: pedal edema, tenderness Additional comments: left leg dressing is clean, dry and intact - Neurological Exam Additional comments: patient is sedated - Skin Skin Exam: Dry, Erythema (chronic cellulitis LLE), Normal Color, Warm Results - Vital Signs Recent Vital Signs: Last Vital Signs Temp 98.3 F 11/27/16 10:25 Pulse 96 H 11/27/16 10:25 Resp 16 11/27/16 10:25 BP 120/72 11/27/16 10:25 Pulse Ox 96 11/27/16 10:25 - Labs Result Diagrams: 11/27/16 11:44 11/27/16 11:44 Labs: Laboratory Results - last 24 hr 11/27/16 15:09 pCO2 29 L pO2 84.0 HCO3 16.4 L ABG pH 7.36 ABG Total CO2 17.3 L ABG O2 Saturation 98.0 ABG O2 Content 13.8 L ABG Base Excess -8.0 L ABG Hemoglobin 10.3 L ABG Carboxyhemoglobin 2.3 H POC ABG HHb (Measured) 1.9 ABG Methemoglobin 1.0 ABG O2 Capacity 14.1 L Hgb O2 Saturation 94.7 L FiO2 60.0 Assessment & Plan - Assessment and Plan (Free Text) Assessment: 81 yo female with PMH of DM, chronic left leg cellulitis presented to ICU s/p intubation most likely due to pneumonitis secondary to aspiration with LLE cellulitis. Plan: Neuro: patient is sedated on propofol from ED will start precedex continue to monitor cardiovascular hemodynamically stable patient has single lead pacemaker continue to maintain MAP>65 pulm intubated on PRVC abg showed metabolic acidosis with respiratory compensation CXR showed no acute disease will repeat ABG and cxr in the morning duoneb ordered GI NPO protonix for GI ppx Renal hyperkalemia, patient was given albuterol, insulin mild hyponatremia elevated BUN at 71, most likely due to dehydration will give 2 NS bolus urine electrolytes and osmolality ordered nephro consulted ID leukocytosis without fever patient given amikacin, aztreonam, meropenem and vanco h/o chronic left leg cellulitis procalcitonin ordered blood, urine and wound cultures ordered ID, Dr. Alvares consulted heme/onc chronic anemia, will continue to monitor <Fan MORAES,Purnima Pedro - Last Filed: 11/27/16 19:46> Meds - Medications Medications: Current Medications Albuterol/Ipratropium (Duoneb 3 Mg/0.5 Mg (3 Ml) Ud) 3 ml IH Q4 KEO Stop: 11/28/16 00:01 Heparin Sodium (Porcine) (Heparin) 5,000 units SC Q12 KEO PRN Reason: Protocol Vancomycin HCl (Vancomycin 1gm) 1 gm in 250 mls @ 167 mls/hr IVPB DAILY KEO PRN Reason: Protocol Dexmedetomidine HCl (Precedex 4 Mcg/Ml (100 Ml)) 400 mcg in 100 mls @ 3.481 mls /hr IV .Q24H PRN; Protocol; 0.2 MCG/KG/HR PRN Reason: Agitation Last Titration: 11/27/16 16:47 Dose: 0.4 mcg/kg/hr, 6.963 mls/hr Aztreonam (Azactam 1 Gm) 100 mls @ 100 mls/hr IVPB Q8 KEO PRN Reason: Protocol Stop: 11/27/16 22:59 Last Admin: 11/27/16 16:28 Dose: 100 mls/hr Sodium Chloride (Sodium Chloride 0.9%) 2,000 mls @ 999 mls/hr IV .Q2H1M STA Stop: 11/27/16 20:54 Last Admin: 11/27/16 19:07 Dose: 999 mls/hr Insulin Human Regular (Humulin R Low) 0 units SC ACHS KEO PRN Reason: Protocol Last Admin: 11/27/16 16:53 Dose: Not Given Pantoprazole Sodium (Protonix Inj) 40 mg IVP DAILY [facility] Results - Vital Signs Recent Vital Signs: Last Vital Signs Temp 97.6 F 11/27/16 16:20 Pulse 69 11/27/16 18:25 Resp 19 11/27/16 15:15 BP 80/36 L 11/27/16 18:23 Pulse Ox 100 11/27/16 18:23 - Labs Result Diagrams: 11/27/16 18:10 11/27/16 18:10 Labs: Laboratory Results - last 24 hr 11/27/16 11/27/16 11/27/16 15:09 16:50 17:05 WBC RBC Hgb Hct MCV MCH MCHC RDW Plt Count MPV Gran % Lymph % (Auto) [place] % (Auto) Eos % (Auto) Baso % (Auto) Gran # Lymph # [place] # Eos # Baso # pCO2 29 L pO2 84.0 HCO3 16.4 L ABG pH 7.36 ABG Total CO2 17.3 L ABG O2 Saturation 98.0 ABG O2 Content 13.8 L ABG Base Excess -8.0 L ABG Hemoglobin 10.3 L ABG Carboxyhemoglobin 2.3 H POC ABG HHb (Measured) 1.9 ABG Methemoglobin 1.0 ABG O2 Capacity 14.1 L Hgb O2 Saturation 94.7 L FiO2 60.0 Sodium Potassium Chloride Carbon Dioxide Anion Gap BUN Creatinine Est GFR ( Amer) Est GFR (Non-Af Amer) POC Glucose (mg/dL) 213 H Random Glucose Calcium Urine Osmolality 461 Ur Random Sodium 9 11/27/16 11/27/16 18:10 18:10 WBC 14.4 H RBC 3.18 L Hgb 8.6 L Hct 27.8 L MCV 87.4 MCH 27.0 MCHC 30.9 L RDW 15.9 H Plt Count 156 MPV 11.2 H Gran % 92.7 H Lymph % (Auto) 2.[address] [place] % (Auto) 4.2 Eos % (Auto) 0.2 L Baso % (Auto) 0.1 Gran # 13.35 H Lymph # 0.[address] [place] # 0.6 Eos # 0.0 Baso # 0.01 pCO2 pO2 HCO3 ABG pH ABG Total CO2 ABG O2 Saturation ABG O2 Content ABG Base Excess ABG Hemoglobin ABG Carboxyhemoglobin POC ABG HHb (Measured) ABG Methemoglobin ABG O2 Capacity Hgb O2 Saturation FiO2 Sodium 136 Potassium 4.3 Chloride 109 Carbon Dioxide 17 L Anion Gap 14 BUN 64 H Creatinine 1.2 Est GFR ( Amer) 52 Est GFR (Non-Af Amer) 43 POC Glucose (mg/dL) Random Glucose 170 H Calcium 7.0 L Urine Osmolality Ur Random Sodium Attending/Attestation - Attestation I have personally seen and examined this patient.: Yes I have fully participated in the care of the patient.: Yes I have reviewed all pertinent clinical information: Yes Notes (Text): 11/27/16 19:44 81 y/o F came to the ER for evaluation of her L foot cellulitis . In the ER she was found to have Hyperkalemia and was given treatment w/ kayexalate. Aspiration and sob, hypoxia insisted and the patient was Intubated. Received with aspiration pneumonitis . Keep pao2> 60 titrate oxygen down to extubate to HFNC ARTI. Empiric abx given for cellulitis , vanco and azactam. CX sent. Dehydration noted, IV fluids w/ NS x 4 L to be given. Keep map>60. ID consulted . Surgery consulted for possible amputation . dvt p cc time 65 min
[2016-11-27] MEDS: Insulin Reg-LOW-Coverage SC SCH ×2 (16:53→22:00)
--- NOTE | 2016-11-27 17:26 | CARD ---
APPROVED REPORT EKG Measurement Heart [id number] <Conclusion> Suspect arm lead reversal, interpretation assumes no reversal Normal sinus rhythm Right bundle branch block Left posterior fascicular block Bifascicular block Abnormal ECG
[2016-11-27 17:58] LABS: OSMOLALITY,URINE 461 mosm/kg (50-645)
--- NOTE | 2016-11-27 18:25 | RAD ---
PROCEDURE: Three views of the left foot performed. Note that frontal view is limited HISTORY: Cellulitis. COMPARISON: No prior study available comparison FINDINGS: Findings: In situ fixation screws fusing the distal tibia and fibula. There also appears to be fusion of the tibiotalar articulation and bones of the hindfoot as well. Diffuse demineralization. . No definitive cortical destruction however if osteomyelitis suspected clinically recommend followup MRI Diffuse soft tissue swelling represent likely representing a cellulitis. There may also be disruption and/or its ulceration involving the soft tissues overlying the posterior calcaneus ; clinical correlation with visual inspection recommended. Questionable metallic clips within the posterior distal soft tissues of the calf Impression: Fusion changes of the distal tibia fibula and tibiotalar articulation as well as bones of the hindfoot. Diffuse demineralization. Consider followup MRI if osteomyelitis suspected clinically Diffuse soft tissue swelling likely representing cellulitis. Questionable ulceration involving the soft tissues overlying the posterior calcaneus .
[2016-11-27 18:28] LABS: BASO # 0.01 K/mm3 (0.0-2.0); BASO % 0.1 % (0.0-3.0); EOS % 0.2 % (1.5-5.0); GRAN # 13.35 (1.4-6.5); GRAN % 92.7 % (50.0-68.0); HEMOGLOBIN 8.6 gm/dL (12.0-16.0); LYMPH # 0.4 (1.2-3.4); LYMPH % 2.8 % (22.0-35.0); MEAN CELL VOLUME 87.4 fL (80.0-105.0); MEAN CORPUSCULAR HGB CONC 30.9 g/dl (31.0-37.0); MEAN PLATELET VOLUME 11.2 fl (7.0-11.0); MONO # 0.6 (0.1-0.6); MONO % 4.2 % (1.0-6.0); PLATELET COUNT 156 10^3/uL (120.0-450.0); RBC 3.18 10^6/uL (3.5-6.1); RED CELL DISTRIBUTION WIDTH 15.9 % (11.5-14.5); WHITE BLOOD COUNT 14.4 10^3/ul (4.5-11.0)
[2016-11-27] MEDS ORDERED: Sodium Chloride 0.9% 2,000 ML IV STA (18:54)
[2016-11-27 20:14] VITALS: BMI 28.0
[2016-11-27] MEDS: Albuterol-Ipratrop 3 mg / 0.5 (3 ml) UD IH SCH ×2 (20:15→23:22)
--- NOTE | 2016-11-27 20:18 | CP.PCM.CON ---
History of Present Illness - History of Present Illness History of Present Illness: Infectious Disease Consultation: November 27, 2016 81 yo female well known to me sent from [facility] for Left lower leg cellulitis and chronic ulcerations. She was sent to [facility] [place] for evaluation of worsening renal function. The patient was found to be hyperkalemic. She was given Kayexalate and vomited. She required intubation at that point and was admitted to the MICU. PMHx: gout, COPD, hypertension, diabetes mellitus, hypothyroidism, COPD PSHx: Multiple debridements of the left leg and foot Allergies: PCN, SULFA Social Hx: group home resident of [facility]. No known tobacco, EtOH, or illicit drug use. Active Medications Tigecycline 50 mg/ Sodium (Chloride) 100 mls @ 100 mls/hr IVPB Q12 KEO PRN Reason: Protocol Stop: 10/10/16 22:59 Heparin Sodium/Sodium Chloride (Heparin 40509 Units/250ml 1/2 Normal Saline) 25 ,000 units in 250 mls @ 14.4 mls/hr IV .[id number] PRN; Protocol; 18 UNITS/KG/HR PRN Reason: ADJUST RATE PER PROTOCOL Last Admin: 10/10/16 19:16 Dose: 18 units/kg/hr, 14.4 mls/hr Sodium Chloride (Sodium Chloride 0.9%) 1,000 mls @ 70 mls/hr IV .[id number] KEO Insulin Human Lispro (Humalog Med) 0 units SC ACHS KEO PRN Reason: Protocol Last Admin: 10/10/16 16:55 Dose: Not Given Metoprolol Tartrate (Lopressor) 25 mg PO BID [facility] Last Admin: 10/10/16 19:49 Dose: 25 mg Montelukast Sodium (Singulair) 10 mg PO HS [facility] Non-Formulary Medication (Protein Supplement [Prosource]) 30 ml PO BID [facility] Pregabalin (Lyrica) 25 mg PO BID [facility] Last Admin: 10/10/16 19:48 Dose: 25 mg Vitamin B Complex/Vit C/Folic Acid (Nephro-Shereen) 1 tab PO DAILY [facility] Family Hx: none given ROS: no fevers, chills, cough, nausea, vomiting, diarrhea, headaches, dizziness, chest pain, abdominal pain, depression, anxiety, melena, hematura, hematemesis, hematochezia. Left leg swelling and lymphedema. Past Patient History - Infectious Disease Hx of Infectious Diseases: None - Tetanus Immunizations Tetanus Immunization: Unknown - Past Medical History & Family History Past Medical History?: Yes - Past Social History Smoking Status: Never Smoked - CARDIAC Hx Cardiac Disorders: Yes (AFib) Hx Hypertension: Yes - PULMONARY Hx Respiratory Disorders: Yes Hx Chronic Obstructive Pulmonary Disease (COPD): Yes - NEUROLOGICAL Hx Neurological Disorder: Yes Hx Dementia: Yes - HEENT Hx HEENT Problems: Yes Hx Cataracts: Yes (BILATERAL SURGERY) - RENAL Hx Chronic Kidney Disease: Yes Hx Neurogenic Bladder: Yes - ENDOCRINE/METABOLIC Hx Endocrine Disorders: Yes Hx Diabetes Mellitus Type 2: Yes - HEMATOLOGICAL/ONCOLOGICAL Hx Blood Disorders: Yes Hx Anemia: Yes - INTEGUMENTARY Hx Dermatological Problems: Yes (CELLULITIS,LEFT VENOUS STASIS ULCER) Other/Comment: cellulitis left ankle wound, left foot red and +2 edema, foul smelling dng noted to left ankle wound - MUSCULOSKELETAL/RHEUMATOLOGICAL Hx Musculoskeletal Disorders: Yes Hx Falls: Yes - GASTROINTESTINAL Hx Gastrointestinal Disorders: Yes Hx Gastroesophageal Reflux: Yes - GENITOURINARY/GYNECOLOGICAL Hx Genitourinary Disorders: Yes (URGENCY) - PSYCHIATRIC Hx Psychophysiologic Disorder: No Hx Substance Use: No - SURGICAL HISTORY Other/Comment: LEFT FOOT SURGERY,PICC 01-09-14 - ANESTHESIA Hx Anesthesia Reactions: No Hx Malignant Hyperthermia: No Meds Allergies/Adverse Reactions: Allergies Allergy/AdvReac Type Severity Reaction Status Date / Time banana Allergy RASH Verified 11/27/16 19:31 Influenza Virus Vaccines Allergy RASH Verified 11/27/16 19:31 kiwi Allergy RASH Verified 11/27/16 19:31 Penicillins Allergy RASH Verified 11/27/16 19:31 pneumococcal vaccine Allergy RASH Verified 11/27/16 19:31 strawberry Allergy RASH Verified 11/27/16 19:31 Sulfa (Sulfonamide Allergy RASH Verified 11/27/16 19:31 Antibiotics) tomato Allergy RASH Verified 11/27/16 19:31 - Medications Medications: Current Medications Albuterol/Ipratropium (Duoneb 3 Mg/0.5 Mg (3 Ml) Ud) 3 ml IH Q4 KEO Stop: 11/28/16 00:01 Heparin Sodium (Porcine) (Heparin) 5,000 units SC Q12 KEO PRN Reason: Protocol Vancomycin HCl (Vancomycin 1gm) 1 gm in 250 mls @ 167 mls/hr IVPB DAILY KEO PRN Reason: Protocol Dexmedetomidine HCl (Precedex 4 Mcg/Ml (100 Ml)) 400 mcg in 100 mls @ 3.481 mls /hr IV .Q24H PRN; Protocol; 0.2 MCG/KG/HR PRN Reason: Agitation Last Titration: 11/27/16 16:47 Dose: 0.4 mcg/kg/hr, 6.963 mls/hr Aztreonam (Azactam 1 Gm) 100 mls @ 100 mls/hr IVPB Q8 KEO PRN Reason: Protocol Stop: 11/27/16 22:59 Last Admin: 11/27/16 16:28 Dose: 100 mls/hr Sodium Chloride (Sodium Chloride 0.9%) 2,000 mls @ 999 mls/hr IV .Q2H1M STA Stop: 11/27/16 20:54 Last Admin: 11/27/16 19:07 Dose: 999 mls/hr Insulin Human Regular (Humulin R Low) 0 units SC ACHS KEO PRN Reason: Protocol Last Admin: 11/27/16 16:53 Dose: Not Given Pantoprazole Sodium (Protonix Inj) 40 mg IVP DAILY [facility] Physical Exam - Constitutional Appears: Chronically Ill Additional comments: intubated and ventilated. - Head Exam Head Exam: ATRAUMATIC, NORMOCEPHALIC - Eye Exam Eye Exam: EOMI, PERRL Pupil Exam: NORMAL ACCOMODATION, PERRL - ENT Exam ENT Exam: Mucous Membranes Moist, Normal External Ear Exam, TM's Normal Bilaterally - Neck Exam Neck exam: Positive for: Full Rom, Normal Inspection - Respiratory Exam Respiratory Exam: Decreased Breath Sounds, Rhonchi. absent: Rales, Wheezes - Cardiovascular Exam Cardiovascular Exam: Bradycardia, +S1, +S2 - GI/Abdominal Exam GI & Abdominal Exam: Normal Bowel Sounds, Soft. absent: Distended, Tenderness - Extremities Exam Additional comments: multiple non healing ulcer of the left leg with odor. - Neurological Exam Neurological exam: Alert, CN II-XII Intact, Oriented x3 Results - Vital Signs Recent Vital Signs: Last Vital Signs Temp 97.6 F 11/27/16 16:20 Pulse 69 11/27/16 18:25 Resp 19 11/27/16 15:15 BP 80/36 L 11/27/16 18:23 Pulse Ox 100 11/27/16 18:23 - Labs Result Diagrams: 11/27/16 18:10 11/27/16 18:10 Labs: Laboratory Results - last 24 hr 11/27/16 11/27/16 11/27/16 15:09 16:50 17:05 WBC RBC Hgb Hct MCV MCH MCHC RDW Plt Count MPV Gran % Lymph % (Auto) [place] % (Auto) Eos % (Auto) Baso % (Auto) Gran # Lymph # [place] # Eos # Baso # pCO2 29 L pO2 84.0 HCO3 16.4 L ABG pH 7.36 ABG Total CO2 17.3 L ABG O2 Saturation 98.0 ABG O2 Content 13.8 L ABG Base Excess -8.0 L ABG Hemoglobin 10.3 L ABG Carboxyhemoglobin 2.3 H POC ABG HHb (Measured) 1.9 ABG Methemoglobin 1.0 ABG O2 Capacity 14.1 L Hgb O2 Saturation 94.7 L FiO2 60.0 Sodium Potassium Chloride Carbon Dioxide Anion Gap BUN Creatinine Est GFR ( Amer) Est GFR (Non-Af Amer) POC Glucose (mg/dL) 213 H Random Glucose Calcium Urine Osmolality 461 Ur Random Sodium 9 11/27/16 11/27/16 18:10 18:10 WBC 14.4 H RBC 3.18 L Hgb 8.6 L Hct 27.8 L MCV 87.4 MCH 27.0 MCHC 30.9 L RDW 15.9 H Plt Count 156 MPV 11.2 H Gran % 92.7 H Lymph % (Auto) 2.8 L [place] % (Auto) 4.2 Eos % (Auto) 0.2 L Baso % (Auto) 0.1 Gran # 13.35 H Lymph # 0.4 L [place] # 0.6 Eos # 0.0 Baso # 0.01 pCO2 pO2 HCO3 ABG pH ABG Total CO2 ABG O2 Saturation ABG O2 Content ABG Base Excess ABG Hemoglobin ABG Carboxyhemoglobin POC ABG HHb (Measured) ABG Methemoglobin ABG O2 Capacity Hgb O2 Saturation FiO2 Sodium 136 Potassium 4.3 Chloride 109 Carbon Dioxide 17 L Anion Gap 14 BUN 64 H Creatinine 1.2 Est GFR ( Amer) 52 Est GFR (Non-Af Amer) 43 POC Glucose (mg/dL) Random Glucose 170 H Calcium 7.0 L Urine Osmolality Ur Random Sodium Assessment & Plan - Assessment and Plan (Free Text) Assessment: 81 yo female with worsening renal function and sent to [facility] [place] for evaluation. The patient was found to be hyperkalemia and vomiting in the ER. She required intubation and is not in the MICU. The patient is awake. She is on Pressedex currently. She remains hypotensive. Started on Aztreonam and Vancomycin IV for antibiotic coverage but if no improvement, I would use Meropenem despite PCN allergy. Especially since the patient is currently intubated and ventilated. Ibrahim cultures sent. Case discussed with Dr. Chavira today. Patient is critically ill. Question of whether the patient should have amputation of the left leg (a chronic ongoing problem with the left leg). Thank you for allowing me to participate in the care of the patient, we will follow with you.
[2016-11-27] MEDS ORDERED: SODIUM CHLORIDE 0.9% IVPB SCH (22:00)
[2016-11-27] MEDS ORDERED: MEROPENEM IVPB SCH (22:00)
--- NOTE | 2016-11-27 22:44 | CP.PCM.CON ---
History of Present Illness - History of Present Illness History of Present Illness: General Surgery - Dr. Oneill 81 yo F w/ hx of DM, Afib, COPD, Chronic LLE Cellulitis for which she was recently admitted, who was reportedly sent to ED from [facility] to get a PICC line for continued IV Abx to treat the cellulitis. While pt was in ED she aspirated and became unresponsive, was intubated and sent to the ICU. Surgery was consulted for amputation of the LLE. Pt currently is intubated and sedated. She does withdraw to pain when examining the leg. History is obtained from the chart. Pt is DNR/DNI. PMH: DM, Afib (On Eliquis), Hypothyroid, COPD, CKD, Neurogenic bladder, Left LE cellulitis PSH: debridements of the LLE, Pacemaker Allergic to PCN Review of Systems - Review of Systems Systems not reviewed;Unavailable: Intubated Past Patient History - Infectious Disease Hx of Infectious Diseases: None - Tetanus Immunizations Tetanus Immunization: Unknown - Past Medical History & Family History Past Medical History?: Yes - Past Social History Smoking Status: Never Smoked - CARDIAC Hx Cardiac Disorders: Yes (AFib) Hx Hypertension: Yes - PULMONARY Hx Respiratory Disorders: Yes Hx Chronic Obstructive Pulmonary Disease (COPD): Yes - NEUROLOGICAL Hx Neurological Disorder: Yes Hx Dementia: Yes - HEENT Hx HEENT Problems: Yes Hx Cataracts: Yes (BILATERAL SURGERY) - RENAL Hx Chronic Kidney Disease: Yes Hx Neurogenic Bladder: Yes - ENDOCRINE/METABOLIC Hx Endocrine Disorders: Yes Hx Diabetes Mellitus Type 2: Yes - HEMATOLOGICAL/ONCOLOGICAL Hx Blood Disorders: Yes Hx Anemia: Yes - INTEGUMENTARY Hx Dermatological Problems: Yes (CELLULITIS,LEFT VENOUS STASIS ULCER) Other/Comment: cellulitis left ankle wound, left foot red and +2 edema, foul smelling dng noted to left ankle wound - MUSCULOSKELETAL/RHEUMATOLOGICAL Hx Musculoskeletal Disorders: Yes Hx Falls: Yes - GASTROINTESTINAL Hx Gastrointestinal Disorders: Yes Hx Gastroesophageal Reflux: Yes - GENITOURINARY/GYNECOLOGICAL Hx Genitourinary Disorders: Yes (URGENCY) - PSYCHIATRIC Hx Psychophysiologic Disorder: No Hx Substance Use: No - SURGICAL HISTORY Other/Comment: LEFT FOOT SURGERY,PICC 01-09-14 - ANESTHESIA Hx Anesthesia Reactions: No Hx Malignant Hyperthermia: No Meds Allergies/Adverse Reactions: Allergies Allergy/AdvReac Type Severity Reaction Status Date / Time banana Allergy RASH Verified 11/27/16 19:31 Influenza Virus Vaccines Allergy RASH Verified 11/27/16 19:31 kiwi Allergy RASH Verified 11/27/16 19:31 Penicillins Allergy RASH Verified 11/27/16 19:31 pneumococcal vaccine Allergy RASH Verified 11/27/16 19:31 strawberry Allergy RASH Verified 11/27/16 19:31 Sulfa (Sulfonamide Allergy RASH Verified 11/27/16 19:31 Antibiotics) tomato Allergy RASH Verified 11/27/16 19:31 - Medications Medications: Current Medications Albuterol/Ipratropium (Duoneb 3 Mg/0.5 Mg (3 Ml) Ud) 3 ml IH Q4 KEO Stop: 11/28/16 00:01 Last Admin: 11/27/16 20:15 Dose: 3 ml Heparin Sodium (Porcine) (Heparin) 5,000 units SC Q12 KEO PRN Reason: Protocol Last Admin: 11/27/16 21:29 Dose: 5,000 units Vancomycin HCl (Vancomycin 1gm) 1 gm in 250 mls @ 167 mls/hr IVPB DAILY KEO PRN Reason: Protocol Dexmedetomidine HCl (Precedex 4 Mcg/Ml (100 Ml)) 400 mcg in 100 mls @ 3.481 mls /hr IV .Q24H PRN; Protocol; 0.2 MCG/KG/HR PRN Reason: Agitation Last Titration: 11/27/16 16:47 Dose: 0.4 mcg/kg/hr, 6.963 mls/hr Aztreonam (Azactam 1 Gm) 100 mls @ 100 mls/hr IVPB Q8 KEO PRN Reason: Protocol Stop: 11/27/16 22:59 Last Admin: 11/27/16 21:28 Dose: 100 mls/hr Insulin Human Regular (Humulin R Low) 0 units SC ACHS KEO PRN Reason: Protocol Last Admin: 11/27/16 16:53 Dose: Not Given Pantoprazole Sodium (Protonix Inj) 40 mg IVP DAILY [facility] Physical Exam - Constitutional Appears: No Acute Distress - Head Exam Head Exam: ATRAUMATIC, NORMAL INSPECTION, NORMOCEPHALIC - ENT Exam ENT Exam: Mucous Membranes Dry - Respiratory Exam Respiratory Exam: NORMAL BREATHING PATTERN Additional comments: INtubated, on Vent - Cardiovascular Exam Cardiovascular Exam: REGULAR RHYTHM - Extremities Exam Additional comments: Left LE edema extending from foot to pretibial region with several non-healing ulcers with foul odor and purulent drainage, erythema extending from the foot to residential up the lower leg, warm with good capillary refill - Neurological Exam Additional comments: Sedated, unarousable to verbal , withdraw to pain Results - Vital Signs Recent Vital Signs: Last Vital Signs Temp 98.3 F 11/27/16 19:33 Pulse 65 11/27/16 20:23 Resp 14 11/27/16 19:33 BP 75/45 L 11/27/16 20:23 Pulse Ox 100 11/27/16 20:23 - Labs Result Diagrams: 11/27/16 18:10 11/27/16 18:10 Labs: Laboratory Results - last 24 hr 11/27/16 11/27/16 11/27/16 15:09 16:50 17:05 WBC RBC Hgb Hct MCV MCH MCHC RDW Plt Count MPV Gran % Lymph % (Auto) [place] % (Auto) Eos % (Auto) Baso % (Auto) Gran # Lymph # [place] # Eos # Baso # pCO2 29 L pO2 84.0 HCO3 16.4 L ABG pH 7.36 ABG Total CO2 17.3 L ABG O2 Saturation 98.0 ABG O2 Content 13.8 L ABG Base Excess -8.0 L ABG Hemoglobin 10.3 L ABG Carboxyhemoglobin 2.3 H POC ABG HHb (Measured) 1.9 ABG Methemoglobin 1.0 ABG O2 Capacity 14.1 L Hgb O2 Saturation 94.7 L FiO2 60.0 Sodium Potassium Chloride Carbon Dioxide Anion Gap BUN Creatinine Est GFR ( Amer) Est GFR (Non-Af Amer) POC Glucose (mg/dL) 213 H Random Glucose Serum Osmolality Calcium Urine Osmolality 461 Ur Random Sodium 9 11/27/16 11/27/16 11/27/16 18:10 18:10 21:52 WBC 14.4 H RBC 3.18 L Hgb 8.6 L Hct 27.8 L MCV 87.4 MCH 27.0 MCHC 30.9 L RDW 15.9 H Plt Count 156 MPV 11.2 H Gran % 92.7 H Lymph % (Auto) 2.8 L [place] % (Auto) 4.2 Eos % (Auto) 0.2 L Baso % (Auto) 0.1 Gran # 13.35 H Lymph # 0.4 L [place] # 0.6 Eos # 0.0 Baso # 0.01 pCO2 pO2 HCO3 ABG pH ABG Total CO2 ABG O2 Saturation ABG O2 Content ABG Base Excess ABG Hemoglobin ABG Carboxyhemoglobin POC ABG HHb (Measured) ABG Methemoglobin ABG O2 Capacity Hgb O2 Saturation FiO2 Sodium 136 Potassium 4.3 Chloride 109 Carbon Dioxide 17 L Anion Gap 14 BUN 64 H Creatinine 1.2 Est GFR ( Amer) 52 Est GFR (Non-Af Amer) 43 POC Glucose (mg/dL) 194 H Random Glucose 170 H Serum Osmolality Calcium 7.0 L Urine Osmolality Ur Random Sodium 11/27/16 22:00 WBC RBC Hgb Hct MCV MCH MCHC RDW Plt Count MPV Gran % Lymph % (Auto) [place] % (Auto) Eos % (Auto) Baso % (Auto) Gran # Lymph # [place] # Eos # Baso # pCO2 pO2 HCO3 ABG pH ABG Total CO2 ABG O2 Saturation ABG O2 Content ABG Base Excess ABG Hemoglobin ABG Carboxyhemoglobin POC ABG HHb (Measured) ABG Methemoglobin ABG O2 Capacity Hgb O2 Saturation FiO2 Sodium Potassium Chloride Carbon Dioxide Anion Gap BUN Creatinine Est GFR ( Amer) Est GFR (Non-Af Amer) POC Glucose (mg/dL) Random Glucose Serum Osmolality 316 H Calcium Urine Osmolality Ur Random Sodium Assessment & Plan - Assessment and Plan (Free Text) Assessment: 81 yo F w/ chronic LLE cellulitis, intubated after aspiration -Cont Abx as per ID -F/U Podiatry -Will monitor progression of the wounds and discuss options with patient once she is extubated and off sedation -No urgent surgical plans DW Dr. Nino Mcginnis PGY3
[2016-11-28 05:38] LABS: ARTERIAL BLOOD GAS HCO3 15.1 mmol/L (21-28); ARTERIAL BLOOD GAS HEMOGLOBIN 8.8 g/dL (11.7-17.4); ARTERIAL BLOOD GAS O2 CAPACITY 12.2 mL/dl (16-24); ARTERIAL BLOOD GAS O2 CONTENT 11.9 ML/dl (15-23); ARTERIAL BLOOD GAS O2 SAT 97.4 % (95-98); ARTERIAL BLOOD GAS PCO2 36 mm/Hg (35-45); ARTERIAL BLOOD GAS PH 7.23 (7.35-7.45); ARTERIAL BLOOD GAS TCO2 16.2 mmol.L (22-28)
[2016-11-28] MEDS: Dexmedetomidine HCl 4mcg/ml 400 MCG/100 ML BOTTLE IV PRN (05:42)
[2016-11-28 07:08] LABS: BASO # 0.01 K/mm3 (0.0-2.0); BASO % 0.1 % (0.0-3.0); GRAN # 8.44 (1.4-6.5); GRAN % 91.4 % (50.0-68.0); LYMPH # 0.4 (1.2-3.4); MEAN CELL VOLUME 88.1 fL (80.0-105.0); MEAN CORPUSCULAR HEMOGLOBIN 26.9 pg (25.0-35.0); MEAN CORPUSCULAR HGB CONC 30.5 g/dl (31.0-37.0); MEAN PLATELET VOLUME 10.9 fl (7.0-11.0); MONO # 0.4 (0.1-0.6); MONO % 4.5 % (1.0-6.0); PLATELET COUNT 137 10^3/uL (120.0-450.0); RBC 3.35 10^6/uL (3.5-6.1); RED CELL DISTRIBUTION WIDTH 16.2 % (11.5-14.5); WHITE BLOOD COUNT 9.2 10^3/ul (4.5-11.0)
[2016-11-28 07:28] LABS: ALB/GLOB RATIO 0.7 (1.1-1.8); ALBUMIN 2.2 g/dL (3.0-4.8); CALCIUM 7.7 mg/dL (8.4-10.5)
[2016-11-28] MEDS: Insulin Reg-LOW-Coverage SC SCH ×3 (08:11→21:20)
[2016-11-28] MEDS ORDERED: Sodium Bicarbonate (8.4%) 50 Meq Syringe IVP ONE (08:11)
[2016-11-28] MEDS: Vancomycin 1gm in NS 250ml 1 GM/250 ML BAG IVPB SCH (10:00)
[2016-11-28] MEDS ORDERED: Povidone Iodine Topical 10% Sol TOP ONE (10:49)
--- NOTE | 2016-11-28 10:57 | CP.PCM.CON ---
<Timothy Barajas - Last Filed: 11/28/16 10:52> History of Present Illness - History of Present Illness History of Present Illness: 81 year old patient with PMH of DM, Afib, COPD, Chronic LLE Cellulitis seen and evaluated at bedside with attending Dr. Meek for left dorsum foot ulceration. Patient is seen resting comfortably at beside. Patient is seen in the ICU intubated and full history was unable to obtain. Left lower extremity dressing appears c/d/i with mild strikethrough noted. Past Patient History - Infectious Disease Hx of Infectious Diseases: None - Tetanus Immunizations Tetanus Immunization: Unknown - Past Medical History & Family History Past Medical History?: Yes - Past Social History Smoking Status: Never Smoked - CARDIAC Hx Cardiac Disorders: Yes (AFib) Hx Hypertension: Yes - PULMONARY Hx Respiratory Disorders: Yes Hx Chronic Obstructive Pulmonary Disease (COPD): Yes - NEUROLOGICAL Hx Neurological Disorder: Yes Hx Dementia: Yes - HEENT Hx HEENT Problems: Yes Hx Cataracts: Yes (BILATERAL SURGERY) - RENAL Hx Chronic Kidney Disease: Yes Hx Neurogenic Bladder: Yes - ENDOCRINE/METABOLIC Hx Endocrine Disorders: Yes Hx Diabetes Mellitus Type 2: Yes - HEMATOLOGICAL/ONCOLOGICAL Hx Blood Disorders: Yes Hx Anemia: Yes - INTEGUMENTARY Hx Dermatological Problems: Yes (CELLULITIS,LEFT VENOUS STASIS ULCER) Other/Comment: cellulitis left ankle wound, left foot red and +2 edema, foul smelling dng noted to left ankle wound - MUSCULOSKELETAL/RHEUMATOLOGICAL Hx Musculoskeletal Disorders: Yes Hx Falls: Yes - GASTROINTESTINAL Hx Gastrointestinal Disorders: Yes Hx Gastroesophageal Reflux: Yes - GENITOURINARY/GYNECOLOGICAL Hx Genitourinary Disorders: Yes (URGENCY) - PSYCHIATRIC Hx Psychophysiologic Disorder: No Hx Substance Use: No - SURGICAL HISTORY Other/Comment: LEFT FOOT SURGERY,PICC 01-09-14 - ANESTHESIA Hx Anesthesia Reactions: No Hx Malignant Hyperthermia: No Meds Allergies/Adverse Reactions: Allergies Allergy/AdvReac Type Severity Reaction Status Date / Time banana Allergy RASH Verified 11/27/16 19:31 Influenza Virus Vaccines Allergy RASH Verified 11/27/16 19:31 kiwi Allergy RASH Verified 11/27/16 19:31 Penicillins Allergy RASH Verified 11/27/16 19:31 pneumococcal vaccine Allergy RASH Verified 11/27/16 19:31 strawberry Allergy RASH Verified 11/27/16 19:31 Sulfa (Sulfonamide Allergy RASH Verified 11/27/16 19:31 Antibiotics) tomato Allergy RASH Verified 11/27/16 19:31 - Medications Medications: Current Medications Heparin Sodium (Porcine) (Heparin) 5,000 units SC Q12 KEO PRN Reason: Protocol Last Admin: 11/27/16 21:29 Dose: 5,000 units Vancomycin HCl (Vancomycin 1gm) 1 gm in 250 mls @ 167 mls/hr IVPB DAILY KEO PRN Reason: Protocol Dexmedetomidine HCl (Precedex 4 Mcg/Ml (100 Ml)) 400 mcg in 100 mls @ 3.481 mls /hr IV .Q24H PRN; Protocol; 0.2 MCG/KG/HR PRN Reason: Agitation Last Admin: 11/28/16 05:42 Dose: 0.4 mcg/kg/hr, 6.963 mls/hr Insulin Human Regular (Humulin R Low) 0 units SC ACHS KEO PRN Reason: Protocol Last Admin: 11/27/16 22:00 Dose: Not Given Pantoprazole Sodium (Protonix Inj) 40 mg IVP DAILY [facility] Physical Exam - Constitutional Appears: Well, Non-toxic, No Acute Distress - Extremities Exam Additional comments: Left lower extremity focused exam: VASC- DP and PT pulses are faintly palpable, capillary refill < 5 sec to digits x 5, mild +1 edema noted to dorsum of the foot DERM- Dorsal foot wound and anterior ankle wound partial thickness ulceration measuring approximately 15 x 14 x .5 cm with mixed fibo-granular base. Mild serous drainage noted to the wound. There is no undermining. No tracking noted. Dior-wound skin is fully epithelialized with some hyper pigmented noted to periwound. No purulence noted. Mild malodor is noted to the left dorsum foot. NEURO- unable to obtain MUSC- no pain elicited with palpation to dorsum of foot Results - Vital Signs Recent Vital Signs: Last Vital Signs Temp 98.3 F 11/27/16 19:33 Pulse 60 11/28/16 05:56 Resp 16 11/28/16 07:35 BP 84/43 L 11/28/16 05:27 Pulse Ox 100 11/28/16 07:35 - Labs Result Diagrams: 11/28/16 05:40 11/28/16 05:40 Labs: Laboratory Results - last 24 hr 11/27/16 11/27/16 11/27/16 15:09 16:50 17:05 WBC RBC Hgb Hct MCV MCH MCHC RDW Plt Count MPV Gran % Lymph % (Auto) [place] % (Auto) Eos % (Auto) Baso % (Auto) Gran # Lymph # [place] # Eos # Baso # APTT pCO2 29 L pO2 84.0 HCO3 16.4 L ABG pH 7.36 ABG Total CO2 17.3 L ABG O2 Saturation 98.0 ABG O2 Content 13.8 L ABG Base Excess -8.0 L ABG Hemoglobin 10.3 L ABG Carboxyhemoglobin 2.3 H POC ABG HHb (Measured) 1.9 ABG Methemoglobin 1.0 ABG O2 Capacity 14.1 L Hgb O2 Saturation 94.7 L FiO2 60.0 Sodium Potassium Chloride Carbon Dioxide Anion Gap BUN Creatinine Est GFR ( Amer) Est GFR (Non-Af Amer) POC Glucose (mg/dL) 213 H Random Glucose Serum Osmolality Calcium Total Bilirubin AST ALT Alkaline Phosphatase Total Protein Albumin Globulin Albumin/Globulin Ratio Urine Osmolality 461 Ur Random Sodium 9 11/27/16 11/27/16 11/27/16 18:10 18:10 21:52 WBC 14.4 H RBC 3.18 L Hgb 8.6 L Hct 27.8 L MCV 87.4 MCH 27.0 MCHC 30.9 L RDW 15.9 H Plt Count 156 MPV 11.2 H Gran % 92.7 H Lymph % (Auto) 2.8 L [place] % (Auto) 4.2 Eos % (Auto) 0.2 L Baso % (Auto) 0.1 Gran # 13.35 H Lymph # 0.4 L [place] # 0.6 Eos # 0.0 Baso # 0.01 APTT pCO2 pO2 HCO3 ABG pH ABG Total CO2 ABG O2 Saturation ABG O2 Content ABG Base Excess ABG Hemoglobin ABG Carboxyhemoglobin POC ABG HHb (Measured) ABG Methemoglobin ABG O2 Capacity Hgb O2 Saturation FiO2 Sodium 136 Potassium 4.3 Chloride 109 Carbon Dioxide 17 L Anion Gap 14 BUN 64 H Creatinine 1.2 Est GFR ( Amer) 52 Est GFR (Non-Af Amer) 43 POC Glucose (mg/dL) 194 H Random Glucose 170 H Serum Osmolality Calcium 7.0 L Total Bilirubin AST ALT Alkaline Phosphatase Total Protein Albumin Globulin Albumin/Globulin Ratio Urine Osmolality Ur Random Sodium 11/27/16 11/28/16 11/28/16 22:00 05:20 05:40 WBC 9.2 D RBC 3.35 L Hgb 9.0 L Hct 29.5 L MCV 88.1 MCH 26.9 MCHC 30.5 L RDW 16.2 H Plt Count 137 MPV 10.9 Gran % 91.4 H Lymph % (Auto) 4.0 L [place] % (Auto) 4.5 Eos % (Auto) 0.0 L Baso % (Auto) 0.1 Gran # 8.44 H Lymph # 0.4 L [place] # 0.4 Eos # 0.0 Baso # 0.01 APTT pCO2 36 pO2 80.0 HCO3 15.1 L ABG pH 7.23 L ABG Total CO2 16.2 L ABG O2 Saturation 97.4 ABG O2 Content 11.9 L ABG Base Excess -11.5 L ABG Hemoglobin 8.8 L ABG Carboxyhemoglobin 1.6 H POC ABG HHb (Measured) 2.5 ABG Methemoglobin 0.8 ABG O2 Capacity 12.2 L Hgb O2 Saturation 95.1 FiO2 60.0 Sodium Potassium Chloride Carbon Dioxide Anion Gap BUN Creatinine Est GFR ( Amer) Est GFR (Non-Af Amer) POC Glucose (mg/dL) Random Glucose Serum Osmolality 316 H Calcium Total Bilirubin AST ALT Alkaline Phosphatase Total Protein Albumin Globulin Albumin/Globulin Ratio Urine Osmolality Ur Random Sodium 11/28/16 11/28/16 05:40 05:40 WBC RBC Hgb Hct MCV MCH MCHC RDW Plt Count MPV Gran % Lymph % (Auto) [place] % (Auto) Eos % (Auto) Baso % (Auto) Gran # Lymph # [place] # Eos # Baso # APTT 34.7 H pCO2 pO2 HCO3 ABG pH ABG Total CO2 ABG O2 Saturation ABG O2 Content ABG Base Excess ABG Hemoglobin ABG Carboxyhemoglobin POC ABG HHb (Measured) ABG Methemoglobin ABG O2 Capacity Hgb O2 Saturation FiO2 Sodium 138 Potassium 4.6 Chloride 114 H Carbon Dioxide 16 L Anion Gap 13 BUN 53 H Creatinine 1.2 Est GFR ( Amer) 52 Est GFR (Non-Af Amer) 43 POC Glucose (mg/dL) Random Glucose 240 H Serum Osmolality Calcium 7.7 L Total Bilirubin 0.4 AST 35 ALT 24 Alkaline Phosphatase 123 Total Protein 5.5 L Albumin 2.2 L Globulin 3.2 Albumin/Globulin Ratio 0.7 L Urine Osmolality Ur Random Sodium Assessment & Plan - Assessment and Plan (Free Text) Assessment: 81 year old female with Left dorsum foot ulceration secondary to chronic venous insufficiency Plan: Patient was examined and evaluated at bedside with attending Dr. Meek. Chart and labs reviewed (WBC=9.2, WBC 14.4 on 11/27/16) Wound culture ordered. WC pending results. Betadine ordered to be cleansed before dressing changes. Cleansed open ulceration with saline and dressed with xerform, DSD, ABD, and kerlix. Podiatry will continue to follow while in house. Thank you for the consult. <Bhavna Meek - Last Filed: 12/03/16 15:13> Results - Vital Signs Recent Vital Signs: Last Vital Signs Temp 97.5 F L 12/02/16 07:30 Pulse 63 12/02/16 20:20 Resp 22 12/02/16 07:30 BP 129/55 L 12/02/16 20:20 Pulse Ox 98 12/02/16 07:30 - Labs Result Diagrams: 12/02/16 06:45 12/02/16 06:45 Labs: Laboratory Results - last 24 hr 12/02/16 16:24 POC Glucose (mg/dL) 132 H Attending/Attestation - Attestation I have personally seen and examined this patient.: Yes I have fully participated in the care of the patient.: Yes I have reviewed all pertinent clinical information: Yes
--- NOTE | 2016-11-28 11:00 | RAD ---
HISTORY: intubation COMPARISON: No prior. FINDINGS: LUNGS: Endotracheal tube in satisfactory position. PLEURA: No significant pleural effusion identified, no pneumothorax apparent. CARDIOVASCULAR: Mild cardiomegaly. Single lead pacemaker OSSEOUS STRUCTURES: No significant abnormalities. VISUALIZED UPPER ABDOMEN: Normal. OTHER FINDINGS: None. IMPRESSION: No active disease.
[2016-11-28] MEDS ORDERED: Enoxaparin 60 mg Syringe SC SCH (11:30)
--- NOTE | 2016-11-28 12:13 | CP.PCM.PN ---
Subjective - Date & Time of Evaluation Date of Evaluation: 11/28/16 Time of Evaluation: 12:09 - Subjective Subjective: General Surgery Dr. Oneill 81 yo F seen and examined this beside this morning. Patient is intubated, unable to answer questions. Objective - Vital Signs/Intake and Output Vital Signs (last 24 hours): Temp Pulse Resp BP Pulse Ox 98.3 F 64 20 117/53 L 100 11/27/16 19:33 11/28/16 11:39 11/28/16 09:27 11/28/16 11:27 11/28/16 11:30 Intake and Output: 11/28/16 11/28/16 06:59 18:59 Intake Total 3195 Output Total 370 Balance 2825 - Medications Medications: Current Medications Enoxaparin Sodium (Lovenox) 40 mg SC DAILY KEO PRN Reason: Protocol Enoxaparin Sodium (Lovenox) 60 mg SC Q12H KEO PRN Reason: Protocol Vancomycin HCl (Vancomycin 1gm) 1 gm in 250 mls @ 167 mls/hr IVPB DAILY KEO PRN Reason: Protocol Last Admin: 11/28/16 10:00 Dose: 167 mls/hr Dexmedetomidine HCl (Precedex 4 Mcg/Ml (100 Ml)) 400 mcg in 100 mls @ 3.481 mls /hr IV .Q24H PRN; Protocol; 0.2 MCG/KG/HR PRN Reason: Agitation Last Admin: 11/28/16 05:42 Dose: 0.4 mcg/kg/hr, 6.963 mls/hr Meropenem 500 mg/ Sodium (Chloride) 100 mls @ 100 mls/hr IVPB Q8 KEO PRN Reason: Protocol Stop: 11/28/16 22:59 Insulin Human Regular (Humulin R Low) 0 units SC ACHS KEO PRN Reason: Protocol Last Admin: 11/27/16 22:00 Dose: Not Given Pantoprazole Sodium (Protonix Inj) 40 mg IVP DAILY [facility] Last Admin: 11/28/16 10:20 Dose: 40 mg - Labs Labs: 11/28/16 05:40 11/28/16 05:40 PT 13.2 Seconds (9.9-11.8) H 11/27/16 11:44 INR 1.22 (0.93-1.08) H 11/27/16 11:44 APTT 34.7 Seconds (23.7-30.8) H 11/28/16 05:40 - Respiratory Exam Additional comments: Intubated. - Cardiovascular Exam Cardiovascular Exam: REGULAR RHYTHM - Extremities Exam Additional comments: Left LE edema ranging from the pretibial region distally to the foot. There are several non-healing ulcers with purulent drainage and erythema. Foot is warm with good capillary refill. Assessment and Plan - Assessment and Plan (Free Text) Assessment: 81 yo F w/ chronic LLE cellulitis, intubated after aspiration Plan: Continue Abx as per ID Monitor progression of wounds Will discuss options with patient once she is extubated No surgical intervention at this time Will discuss with Dr. Nino Burgos Reginald PGY1
--- NOTE | 2016-11-28 12:41 | CP.PCM.CON ---
History of Present Illness - History of Present Illness History of Present Illness: Initial Nephrology Consultation: Assessment: Critical Acute Kidney Injury (N17.9) likely pre-renal state as also evident by low urine Na and high BUN/creat ratio further contributed by hypotension/shock state. Glomerulonephritis less likely. Hyponatremia, Hyperkalemia: resolved. Non-anion gap metabolic acidosis likely due to saline infusion microscopic hematuria Anemia, left leg cellulitis, DM, acute respiratory failure, A fib, Hypoalbuminemia Plan No acute need for renal replacement therapy at this time. maintain hemodynamics stable. can continue with normal saline @ 75-100 ml/hr Monitor Input/Output, daily weights and renal function with basic metabolic panel Check renal sonogram. Dose meds/antibiotics for reduced GFR. Avoid fleets enema/magnesium based laxatives. Avoid nephrotoxins/NSAIDs/ iodinated contrast (unless needed emergently) Glycemic control Further work up/management as per primary team Thanks for allowing me to participate in care of your patient. Will follow patient with you. Please call if any Qs Dr Gustavo Tanner Office: [phone] Chief Complaint; unable to obtain Source of Info: EMR. pt unable to provide hx/ROS. she is intubated HPI: Pt is 81 y/o F with hx of diabetes Mellitus, A fib, hypothyroidism, chronic left swelling and cellulitis, COPD, s/p left PPM initially presented with left leg cellulitis. She was given kayexylate for elevated potassium. she also got IV vancomycin. but she became hypoxic and possibly aspirated. she was intubated for respi failure and renal consult is being requested for ARIEL and elevated BUN. she has been hypotensive since then. BP in 80s. No known recent iodinated contrast exposure. ROS: Unable to obtain as pt intubated Physical Examination: General Appearance: Comfortable, in no acute respiratory distress. she is intubated and sedated Vitals reviewed and noted as below Head; Atraumatic, normocephalic ENT: she is orally intubated EYES: Pupils are equal, round and reactive to light accommodation. Eye muscles and extraocular movement intact. Sclera is anicteric. Neck; supple no lymphadenopathy, no thyromegaly or bruit Lungs: Normal respiratory rate/effort. Breath sounds bilateral equal and clear anteriorly. Heart: Normal rate. s1s2 normal. No rub or gallop. Extremities: no edema. No varicose veins. she has chronic left leg venous stasis and is dressed. Neurological: Patient is sedated. Skin: Warm and dry. Normal turgor. No rash. Palpitation: Normal elasticity for age Abdomen: Abdomen is soft. Bowel sounds +. There is no abdominal tenderness, no guarding/rigidity no organomegaly Psych: unable MSK: no joint tenderness or swelling except left ankle/leg. Digits and nails normal, no deformity : kidney or bladder not palpable, she has jaquez catheter Labs/imaging/EKG reviewed. Past medical history, past surgical history, family history, social history, allergy reviewed and noted as below Family hx: no hx of CKD. Rest non-contributory Labs: UA: sodium 9, moderate blood trace protein. microscopy done by me: showed few monomorphic RBC and few hyaline cast phos 4.7 Mg 2.5 Serum Alb 2.2 ABG 7.23/36/16/97% Past Patient History - Infectious Disease Hx of Infectious Diseases: None - Tetanus Immunizations Tetanus Immunization: Unknown - Past Medical History & Family History Past Medical History?: Yes - Past Social History Smoking Status: Never Smoked - CARDIAC Hx Cardiac Disorders: Yes (AFib) Hx Hypertension: Yes - PULMONARY Hx Respiratory Disorders: Yes Hx Chronic Obstructive Pulmonary Disease (COPD): Yes - NEUROLOGICAL Hx Neurological Disorder: Yes Hx Dementia: Yes - HEENT Hx HEENT Problems: Yes Hx Cataracts: Yes (BILATERAL SURGERY) - RENAL Hx Chronic Kidney Disease: Yes Hx Neurogenic Bladder: Yes - ENDOCRINE/METABOLIC Hx Endocrine Disorders: Yes Hx Diabetes Mellitus Type 2: Yes - HEMATOLOGICAL/ONCOLOGICAL Hx Blood Disorders: Yes Hx Anemia: Yes - INTEGUMENTARY Hx Dermatological Problems: Yes (CELLULITIS,LEFT VENOUS STASIS ULCER) Other/Comment: cellulitis left ankle wound, left foot red and +2 edema, foul smelling dng noted to left ankle wound - MUSCULOSKELETAL/RHEUMATOLOGICAL Hx Musculoskeletal Disorders: Yes Hx Falls: Yes - GASTROINTESTINAL Hx Gastrointestinal Disorders: Yes Hx Gastroesophageal Reflux: Yes - GENITOURINARY/GYNECOLOGICAL Hx Genitourinary Disorders: Yes (URGENCY) - PSYCHIATRIC Hx Psychophysiologic Disorder: No Hx Substance Use: No - SURGICAL HISTORY Other/Comment: LEFT FOOT SURGERY,PICC 01-09-14 - ANESTHESIA Hx Anesthesia Reactions: No Hx Malignant Hyperthermia: No Meds Allergies/Adverse Reactions: Allergies Allergy/AdvReac Type Severity Reaction Status Date / Time banana Allergy RASH Verified 11/27/16 19:31 Influenza Virus Vaccines Allergy RASH Verified 11/27/16 19:31 kiwi Allergy RASH Verified 11/27/16 19:31 Penicillins Allergy RASH Verified 11/27/16 19:31 pneumococcal vaccine Allergy RASH Verified 11/27/16 19:31 strawberry Allergy RASH Verified 11/27/16 19:31 Sulfa (Sulfonamide Allergy RASH Verified 11/27/16 19:31 Antibiotics) tomato Allergy RASH Verified 11/27/16 19:31 - Medications Medications: Current Medications Enoxaparin Sodium (Lovenox) 40 mg SC DAILY KEO PRN Reason: Protocol Enoxaparin Sodium (Lovenox) 60 mg SC Q12H KEO PRN Reason: Protocol Vancomycin HCl (Vancomycin 1gm) 1 gm in 250 mls @ 167 mls/hr IVPB DAILY KEO PRN Reason: Protocol Last Admin: 11/28/16 10:00 Dose: 167 mls/hr Dexmedetomidine HCl (Precedex 4 Mcg/Ml (100 Ml)) 400 mcg in 100 mls @ 3.481 mls /hr IV .Q24H PRN; Protocol; 0.2 MCG/KG/HR PRN Reason: Agitation Last Admin: 11/28/16 05:42 Dose: 0.4 mcg/kg/hr, 6.963 mls/hr Meropenem 500 mg/ Sodium (Chloride) 100 mls @ 100 mls/hr IVPB Q8 KEO PRN Reason: Protocol Stop: 11/28/16 22:59 Insulin Human Regular (Humulin R Low) 0 units SC ACHS KEO PRN Reason: Protocol Last Admin: 11/27/16 22:00 Dose: Not Given Pantoprazole Sodium (Protonix Inj) 40 mg IVP DAILY [facility] Last Admin: 11/28/16 10:20 Dose: 40 mg Results - Vital Signs Recent Vital Signs: Last Vital Signs Temp 98.3 F 11/27/16 19:33 Pulse 64 11/28/16 11:39 Resp 20 11/28/16 09:27 BP 117/53 L 11/28/16 11:27 Pulse Ox 100 11/28/16 11:30 - Labs Result Diagrams: 11/28/16 05:40 11/28/16 05:40 Labs: Laboratory Results - last 24 hr 11/27/16 11/27/16 11/27/16 15:09 16:50 17:05 WBC RBC Hgb Hct MCV MCH MCHC RDW Plt Count MPV Gran % Lymph % (Auto) [place] % (Auto) Eos % (Auto) Baso % (Auto) Gran # Lymph # [place] # Eos # Baso # APTT pCO2 29 L pO2 84.0 HCO3 16.4 L ABG pH 7.36 ABG Total CO2 17.3 L ABG O2 Saturation 98.0 ABG O2 Content 13.8 L ABG Base Excess -8.0 L ABG Hemoglobin 10.3 L ABG Carboxyhemoglobin 2.3 H POC ABG HHb (Measured) 1.9 ABG Methemoglobin 1.0 ABG O2 Capacity 14.1 L Hgb O2 Saturation 94.7 L FiO2 60.0 Sodium Potassium Chloride Carbon Dioxide Anion Gap BUN Creatinine Est GFR ( Amer) Est GFR (Non-Af Amer) POC Glucose (mg/dL) 213 H Random Glucose Serum Osmolality Calcium Total Bilirubin AST ALT Alkaline Phosphatase Total Protein Albumin Globulin Albumin/Globulin Ratio Urine Osmolality 461 Ur Random Sodium 9 11/27/16 11/27/16 11/27/16 18:10 18:10 21:52 WBC 14.4 H RBC 3.18 L Hgb 8.6 L Hct 27.8 L MCV 87.4 MCH 27.0 MCHC 30.9 L RDW 15.9 H Plt Count 156 MPV 11.2 H Gran % 92.7 H Lymph % (Auto) 2.8 L [place] % (Auto) 4.2 Eos % (Auto) 0.2 L Baso % (Auto) 0.1 Gran # 13.35 H Lymph # 0.4 L [place] # 0.6 Eos # 0.0 Baso # 0.01 APTT pCO2 pO2 HCO3 ABG pH ABG Total CO2 ABG O2 Saturation ABG O2 Content ABG Base Excess ABG Hemoglobin ABG Carboxyhemoglobin POC ABG HHb (Measured) ABG Methemoglobin ABG O2 Capacity Hgb O2 Saturation FiO2 Sodium 136 Potassium 4.3 Chloride 109 Carbon Dioxide 17 L Anion Gap 14 BUN 64 H Creatinine 1.2 Est GFR ( Amer) 52 Est GFR (Non-Af Amer) 43 POC Glucose (mg/dL) 194 H Random Glucose 170 H Serum Osmolality Calcium 7.0 L Total Bilirubin AST ALT Alkaline Phosphatase Total Protein Albumin Globulin Albumin/Globulin Ratio Urine Osmolality Ur Random Sodium 11/27/16 11/28/16 11/28/16 22:00 05:20 05:40 WBC 9.2 D RBC 3.35 L Hgb 9.0 L Hct 29.5 L MCV 88.1 MCH 26.9 MCHC 30.5 L RDW 16.2 H Plt Count 137 MPV 10.9 Gran % 91.4 H Lymph % (Auto) 4.0 L [place] % (Auto) 4.5 Eos % (Auto) 0.0 L Baso % (Auto) 0.1 Gran # 8.44 H Lymph # 0.4 L [place] # 0.4 Eos # 0.0 Baso # 0.01 APTT pCO2 36 pO2 80.0 HCO3 15.1 L ABG pH 7.23 L ABG Total CO2 16.2 L ABG O2 Saturation 97.4 ABG O2 Content 11.9 L ABG Base Excess -11.5 L ABG Hemoglobin 8.8 L ABG Carboxyhemoglobin 1.6 H POC ABG HHb (Measured) 2.5 ABG Methemoglobin 0.8 ABG O2 Capacity 12.2 L Hgb O2 Saturation 95.1 FiO2 60.0 Sodium Potassium Chloride Carbon Dioxide Anion Gap BUN Creatinine Est GFR ( Amer) Est GFR (Non-Af Amer) POC Glucose (mg/dL) Random Glucose Serum Osmolality 316 H Calcium Total Bilirubin AST ALT Alkaline Phosphatase Total Protein Albumin Globulin Albumin/Globulin Ratio Urine Osmolality Ur Random Sodium 11/28/16 11/28/16 05:40 05:40 WBC RBC Hgb Hct MCV MCH MCHC RDW Plt Count MPV Gran % Lymph % (Auto) [place] % (Auto) Eos % (Auto) Baso % (Auto) Gran # Lymph # [place] # Eos # Baso # APTT 34.7 H pCO2 pO2 HCO3 ABG pH ABG Total CO2 ABG O2 Saturation ABG O2 Content ABG Base Excess ABG Hemoglobin ABG Carboxyhemoglobin POC ABG HHb (Measured) ABG Methemoglobin ABG O2 Capacity Hgb O2 Saturation FiO2 Sodium 138 Potassium 4.6 Chloride 114 H Carbon Dioxide 16 L Anion Gap 13 BUN 53 H Creatinine 1.2 Est GFR ( Amer) 52 Est GFR (Non-Af Amer) 43 POC Glucose (mg/dL) Random Glucose 240 H Serum Osmolality Calcium 7.7 L Total Bilirubin 0.4 AST 35 ALT 24 Alkaline Phosphatase 123 Total Protein 5.5 L Albumin 2.2 L Globulin 3.2 Albumin/Globulin Ratio 0.7 L Urine Osmolality Ur Random Sodium
[2016-11-28] MEDS: Meropenem 500 MG in Sodium Chloride 0.9% 100 ML IVPB SCH ×2 (14:29→21:22)
--- NOTE | 2016-11-28 17:25 | CP.CCUPN ---
CCU Subjective - Physician Review Events Since Last Encounter (Free Text): 11/28/16 17:20 81 y/o F w/ Acute respiratory failure in the setting of aspiration pneumonitis Placed on PS trial SBT passed, switched to HFNC 60% 50L to keep > 92% CCU Objective - Vital Signs / Intake & Output Vital Signs (Last 4 hours): Vital Signs Temp Pulse Resp BP Pulse Ox 11/28/16 16:50 61 12 100 11/28/16 16:40 61 16 100 11/28/16 16:30 63 15 11/28/16 16:27 65 19 89/35 L 100 11/28/16 16:20 63 15 11/28/16 16:10 64 20 100 11/28/16 16:00 98.3 F 60 17 100 11/28/16 15:50 60 18 100 11/28/16 15:40 63 14 11/28/16 15:30 62 16 11/28/16 15:27 60 13 83/59 L 11/28/16 15:20 60 15 100 11/28/16 15:10 60 15 100 11/28/16 15:00 63 14 11/28/16 14:50 64 12 100 11/28/16 14:49 10 L 11/28/16 14:40 63 10 L 100 11/28/16 14:30 65 11 L 100 11/28/16 14:27 65 11 L 79/36 L 100 11/28/16 14:20 67 11 L 100 11/28/16 14:10 65 14 11/28/16 14:00 69 16 100 11/28/16 13:50 65 11 L 11/28/16 13:40 63 11 L 100 11/28/16 13:30 63 11 L 100 11/28/16 13:27 64 11 L 91/45 L 100 Intake and Output (Last 8hrs): Intake & Output 11/28/16 11/28/16 11/28/16 06:59 14:59 22:59 Intake Total 3195 Output Total 370 Balance 2825 Weight 149 lb 8 oz 147 lb 3.2 oz Intake: IV 3095 Right Antecubital 3000 Other 100 Output: Urine 350 Urethral (Ruiz) 350 Stool 0 Other 20 Other: Voiding Method Indwelling Catheter - Physical Exam Head: Positive for: Atraumatic, Normocephalic Pupils: Positive for: PERRL Extroacular Muscles: Positive for: EOMI Conjunctiva: Positive for: Normal Mouth: Positive for: Moist Mucous Membranes Neck: Positive for: Normal Range of Motion Respiratory/Chest: Positive for: Clear to Auscultation, Good Air Exchange. Negative for: Respiratory Distress, Accessory Muscle Use Cardiovascular: Positive for: Regular Rate and Rhythm, Normal S1, S2. Negative for: Murmurs Abdomen: Positive for: Normal Bowel Sounds. Negative for: Tenderness, Distention, Peritoneal Signs Back: Positive for: Normal Inspection Upper Extremity: Positive for: Normal Inspection. Negative for: Cyanosis, Edema Lower Extremity: Positive for: Normal Inspection, Other (left leg cellulitis with abnormal blood work). Negative for: Edema Neurological: Positive for: GCS=15, CN II-XII Intact, Speech Normal Skin: Positive for: Warm, Dry, Normal Color. Negative for: Rashes Psychiatric: Positive for: Alert, Oriented x 3, Normal Insight, Normal Concentration - Medications Active Medications: Active Medications Generic Name Dose Route Start Last Admin Trade Name Freq PRN Reason Stop Dose Admin Enoxaparin Sodium 40 mg 11/29/16 10:00 Lovenox SC DAILY KEO Protocol Enoxaparin Sodium 60 mg 11/28/16 11:30 11/28/16 11:30 Lovenox SC Not Given Q12H KEO Protocol Vancomycin HCl 1 gm in 250 mls @ 167 mls/hr 11/28/16 10:00 11/28/16 10:00 Vancomycin 1gm IVPB 167 mls/hr DAILY KEO Administration Protocol Dexmedetomidine HCl 400 mcg in 100 mls @ 3.481 mls/hr 11/27/16 15:40 05:42 Precedex 4 Mcg/Ml (100 Ml) IV 0.4 mcg/kg/hr .Q24H PRN 6.963 mls/hr Agitation Administration Protocol 0.2 MCG/KG/HR Meropenem 500 mg/ Sodium 100 mls @ 100 mls/hr 11/28/16 14:00 11/28/16 14:29 Chloride IVPB 11/28/16 22:59 100 mls/hr Q8 KEO Administration Protocol Insulin Human Regular 0 units 11/27/16 16:30 11/28/16 12:13 Humulin R Low SC 3 units ACHS KEO Administration Protocol Pantoprazole Sodium 40 mg 11/28/16 10:00 11/28/16 10:20 Protonix Inj IVP 40 mg DAILY KEO Administration - Patient Studies Lab Studies: Lab Studies 11/28/16 11/28/16 11/28/16 Range/Units 10:04 05:53 05:40 WBC (4.5-11.0) 10^3/ul RBC (3.5-6.1) 10^6/uL Hgb (12.0-16.0) gm/dL Hct (36.0-48.0) % MCV (80.0-105.0) fL MCH (25.0-35.0) pg MCHC (31.0-37.0) g/dl RDW (11.5-14.5) % Plt Count (120.0-450.0) 10^3/uL MPV (7.0-11.0) fl Gran % (50.0-68.0) % Lymph % (Auto) (22.0-35.0) % [place] % (Auto) (1.0-6.0) % Eos % (Auto) (1.5-5.0) % Baso % (Auto) (0.0-3.0) % Gran # (1.4-6.5) Lymph # (1.2-3.4) [place] # (0.1-0.6) Eos # (0.0-0.7) Baso # (0.0-2.0) K/mm3 APTT 34.7 H (23.7-30.8) Seconds pCO2 (35-45) mm/Hg pO2 (80-100) mm/Hg HCO3 (21-28) mmol/L ABG pH (7.35-7.45) ABG Total CO2 (22-28) mmol.L ABG O2 Saturation (95-98) % ABG O2 Content (15-23) ML/dl ABG Base Excess (-2.0-3.0) mmol/L ABG Hemoglobin (11.7-17.4) g/dL ABG Carboxyhemoglobin (0.5-1.5) % POC ABG HHb (Measured) (0-5) % ABG Methemoglobin (0.0-3.0) % ABG O2 Capacity (16-24) mL/dl Hgb O2 Saturation (95.0-98.0) % FiO2 % Sodium (132-148) mmol/L Potassium (3.6-5.0) mmol/L Chloride (95-110) mmol/L Carbon Dioxide (21-33) mmol/L Anion Gap (10-20) BUN (7-21) mg/dL Creatinine (0.5-1.4) mg/dL Est GFR ( Amer) Est GFR (Non-Af Amer) POC Glucose (mg/dL) 253 H 242 H (65-110) mg/dL Random Glucose (70-110) mg/dL Serum Osmolality (271-296) mosm/kg Calcium (8.4-10.5) mg/dL Total Bilirubin (0.2-1.3) mg/dL AST (15-39) U/L ALT (7-56) U/L Alkaline Phosphatase (38-133) U/L Total Protein (5.8-8.3) g/dL Albumin (3.0-4.8) g/dL Globulin gm/dL Albumin/Globulin Ratio (1.1-1.8) Urine Osmolality (50-645) mosm/kg Ur Random Sodium meq/L 11/28/16 11/28/16 11/28/16 Range/Units 05:40 05:40 05:20 WBC 9.2 D (4.5-11.0) 10^3/ul RBC 3.35 L (3.5-6.1) 10^6/uL Hgb 9.0 L (12.0-16.0) gm/dL Hct 29.5 L (36.0-48.0) % MCV 88.1 (80.0-105.0) fL MCH 26.9 (25.0-35.0) pg MCHC 30.5 L (31.0-37.0) g/dl RDW 16.2 H (11.5-14.5) % Plt Count 137 (120.0-450.0) 10^3/uL MPV 10.9 (7.0-11.0) fl Gran % 91.4 H (50.0-68.0) % Lymph % (Auto) 4.0 L (22.0-35.0) % [place] % (Auto) 4.5 (1.0-6.0) % Eos % (Auto) 0.0 L (1.5-5.0) % Baso % (Auto) 0.1 (0.0-3.0) % Gran # 8.44 H (1.4-6.5) Lymph # 0.4 L (1.2-3.4) [place] # 0.4 (0.1-0.6) Eos # 0.0 (0.0-0.7) Baso # 0.01 (0.0-2.0) K/mm3 APTT (23.7-30.8) Seconds pCO2 36 (35-45) mm/Hg pO2 80.0 (80-100) mm/Hg HCO3 15.1 L (21-28) mmol/L ABG pH 7.23 L (7.35-7.45) ABG Total CO2 16.2 L (22-28) mmol.L ABG O2 Saturation 97.4 (95-98) % ABG O2 Content 11.9 L (15-23) ML/dl ABG Base Excess -11.5 L (-2.0-3.0) mmol/L ABG Hemoglobin 8.8 L (11.7-17.4) g/dL ABG Carboxyhemoglobin 1.6 H (0.5-1.5) % POC ABG HHb (Measured) 2.5 (0-5) % ABG Methemoglobin 0.8 (0.0-3.0) % ABG O2 Capacity 12.2 L (16-24) mL/dl Hgb O2 Saturation 95.1 (95.0-98.0) % FiO2 60.0 % Sodium 138 (132-148) mmol/L Potassium 4.6 (3.6-5.0) mmol/L Chloride 114 H (95-110) mmol/L Carbon Dioxide 16 L (21-33) mmol/L Anion Gap 13 (10-20) BUN 53 H (7-21) mg/dL Creatinine 1.2 (0.5-1.4) mg/dL Est GFR ( Amer) 52 Est GFR (Non-Af Amer) 43 POC Glucose (mg/dL) (65-110) mg/dL Random Glucose 240 H (70-110) mg/dL Serum Osmolality (271-296) mosm/kg Calcium 7.7 L (8.4-10.5) mg/dL Total Bilirubin 0.4 (0.2-1.3) mg/dL AST 35 (15-39) U/L ALT 24 (7-56) U/L Alkaline Phosphatase 123 (38-133) U/L Total Protein 5.5 L (5.8-8.3) g/dL Albumin 2.2 L (3.0-4.8) g/dL Globulin 3.2 gm/dL Albumin/Globulin Ratio 0.7 L (1.1-1.8) Urine Osmolality (50-645) mosm/kg Ur Random Sodium meq/L 11/27/16 11/27/16 11/27/16 Range/Units 22:00 21:52 18:10 WBC (4.5-11.0) 10^3/ul RBC (3.5-6.1) 10^6/uL Hgb (12.0-16.0) gm/dL Hct (36.0-48.0) % MCV (80.0-105.0) fL MCH (25.0-35.0) pg MCHC (31.0-37.0) g/dl RDW (11.5-14.5) % Plt Count (120.0-450.0) 10^3/uL MPV (7.0-11.0) fl Gran % (50.0-68.0) % Lymph % (Auto) (22.0-35.0) % [place] % (Auto) (1.0-6.0) % Eos % (Auto) (1.5-5.0) % Baso % (Auto) (0.0-3.0) % Gran # (1.4-6.5) Lymph # (1.2-3.4) [place] # (0.1-0.6) Eos # (0.0-0.7) Baso # (0.0-2.0) K/mm3 APTT (23.7-30.8) Seconds pCO2 (35-45) mm/Hg pO2 (80-100) mm/Hg HCO3 (21-28) mmol/L ABG pH (7.35-7.45) ABG Total CO2 (22-28) mmol.L ABG O2 Saturation (95-98) % ABG O2 Content (15-23) ML/dl ABG Base Excess (-2.0-3.0) mmol/L ABG Hemoglobin (11.7-17.4) g/dL ABG Carboxyhemoglobin (0.5-1.5) % POC ABG HHb (Measured) (0-5) % ABG Methemoglobin (0.0-3.0) % ABG O2 Capacity (16-24) mL/dl Hgb O2 Saturation (95.0-98.0) % FiO2 % Sodium 136 (132-148) mmol/L Potassium 4.3 (3.6-5.0) mmol/L Chloride 109 (95-110) mmol/L Carbon Dioxide 17 L (21-33) mmol/L Anion Gap 14 (10-20) BUN 64 H (7-21) mg/dL Creatinine 1.2 (0.5-1.4) mg/dL Est GFR ( Amer) 52 Est GFR (Non-Af Amer) 43 POC Glucose (mg/dL) 194 H (65-110) mg/dL Random Glucose 170 H (70-110) mg/dL Serum Osmolality 316 H (271-296) mosm/kg Calcium 7.0 L (8.4-10.5) mg/dL Total Bilirubin (0.2-1.3) mg/dL AST (15-39) U/L ALT (7-56) U/L Alkaline Phosphatase (38-133) U/L Total Protein (5.8-8.3) g/dL Albumin (3.0-4.8) g/dL Globulin gm/dL Albumin/Globulin Ratio (1.1-1.8) Urine Osmolality (50-645) mosm/kg Ur Random Sodium meq/L 11/27/16 11/27/16 Range/Units 18:10 17:05 WBC 14.4 H (4.5-11.0) 10^3/ul RBC 3.18 L (3.5-6.1) 10^6/uL Hgb 8.6 L (12.0-16.0) gm/dL Hct 27.8 L (36.0-48.0) % MCV 87.4 (80.0-105.0) fL MCH 27.0 (25.0-35.0) pg MCHC 30.9 L (31.0-37.0) g/dl RDW 15.9 H (11.5-14.5) % Plt Count 156 (120.0-450.0) 10^3/uL MPV 11.2 H (7.0-11.0) fl Gran % 92.7 H (50.0-68.0) % Lymph % (Auto) 2.8 L (22.0-35.0) % [place] % (Auto) 4.2 (1.0-6.0) % Eos % (Auto) 0.2 L (1.5-5.0) % Baso % (Auto) 0.1 (0.0-3.0) % Gran # 13.35 H (1.4-6.5) Lymph # 0.4 L (1.2-3.4) [place] # 0.6 (0.1-0.6) Eos # 0.0 (0.0-0.7) Baso # 0.01 (0.0-2.0) K/mm3 APTT (23.7-30.8) Seconds pCO2 (35-45) mm/Hg pO2 (80-100) mm/Hg HCO3 (21-28) mmol/L ABG pH (7.35-7.45) ABG Total CO2 (22-28) mmol.L ABG O2 Saturation (95-98) % ABG O2 Content (15-23) ML/dl ABG Base Excess (-2.0-3.0) mmol/L ABG Hemoglobin (11.7-17.4) g/dL ABG Carboxyhemoglobin (0.5-1.5) % POC ABG HHb (Measured) (0-5) % ABG Methemoglobin (0.0-3.0) % ABG O2 Capacity (16-24) mL/dl Hgb O2 Saturation (95.0-98.0) % FiO2 % Sodium (132-148) mmol/L Potassium (3.6-5.0) mmol/L Chloride (95-110) mmol/L Carbon Dioxide (21-33) mmol/L Anion Gap (10-20) BUN (7-21) mg/dL Creatinine (0.5-1.4) mg/dL Est GFR ( Amer) Est GFR (Non-Af Amer) POC Glucose (mg/dL) (65-110) mg/dL Random Glucose (70-110) mg/dL Serum Osmolality (271-296) mosm/kg Calcium (8.4-10.5) mg/dL Total Bilirubin (0.2-1.3) mg/dL AST (15-39) U/L ALT (7-56) U/L Alkaline Phosphatase (38-133) U/L Total Protein (5.8-8.3) g/dL Albumin (3.0-4.8) g/dL Globulin gm/dL Albumin/Globulin Ratio (1.1-1.8) Urine Osmolality 461 (50-645) mosm/kg Ur Random Sodium 9 meq/L Laboratory Results - last 24 hr 11/27/16 11/27/16 11/27/16 17:05 18:10 18:10 WBC 14.4 H RBC 3.18 L Hgb 8.6 L Hct 27.8 L MCV 87.4 MCH 27.0 MCHC 30.9 L RDW 15.9 H Plt Count 156 MPV 11.2 H Gran % 92.7 H Lymph % (Auto) 2.8 L [place] % (Auto) 4.2 Eos % (Auto) 0.2 L Baso % (Auto) 0.1 Gran # 13.35 H Lymph # 0.4 L [place] # 0.6 Eos # 0.0 Baso # 0.01 APTT pCO2 pO2 HCO3 ABG pH ABG Total CO2 ABG O2 Saturation ABG O2 Content ABG Base Excess ABG Hemoglobin ABG Carboxyhemoglobin POC ABG HHb (Measured) ABG Methemoglobin ABG O2 Capacity Hgb O2 Saturation FiO2 Sodium 136 Potassium 4.3 Chloride 109 Carbon Dioxide 17 L Anion Gap 14 BUN 64 H Creatinine 1.2 Est GFR ( Amer) 52 Est GFR (Non-Af Amer) 43 POC Glucose (mg/dL) Random Glucose 170 H Serum Osmolality Calcium 7.0 L Total Bilirubin AST ALT Alkaline Phosphatase Total Protein Albumin Globulin Albumin/Globulin Ratio Urine Osmolality 461 Ur Random Sodium 9 11/27/16 11/27/16 11/28/16 21:52 22:00 05:20 WBC RBC Hgb Hct MCV MCH MCHC RDW Plt Count MPV Gran % Lymph % (Auto) [place] % (Auto) Eos % (Auto) Baso % (Auto) Gran # Lymph # [place] # Eos # Baso # APTT pCO2 36 pO2 80.0 HCO3 15.1 L ABG pH 7.23 L ABG Total CO2 16.2 L ABG O2 Saturation 97.4 ABG O2 Content 11.9 L ABG Base Excess -11.5 L ABG Hemoglobin 8.8 L ABG Carboxyhemoglobin 1.6 H POC ABG HHb (Measured) 2.5 ABG Methemoglobin 0.8 ABG O2 Capacity 12.2 L Hgb O2 Saturation 95.1 FiO2 60.0 Sodium Potassium Chloride Carbon Dioxide Anion Gap BUN Creatinine Est GFR ( Amer) Est GFR (Non-Af Amer) POC Glucose (mg/dL) 194 H Random Glucose Serum Osmolality 316 H Calcium Total Bilirubin AST ALT Alkaline Phosphatase Total Protein Albumin Globulin Albumin/Globulin Ratio Urine Osmolality Ur Random Sodium 11/28/16 11/28/16 11/28/16 05:40 05:40 05:40 WBC 9.2 D RBC 3.35 L Hgb 9.0 L Hct 29.5 L MCV 88.1 MCH 26.9 MCHC 30.5 L RDW 16.2 H Plt Count 137 MPV 10.9 Gran % 91.4 H Lymph % (Auto) 4.0 L [place] % (Auto) 4.5 Eos % (Auto) 0.0 L Baso % (Auto) 0.1 Gran # 8.44 H Lymph # 0.4 L [place] # 0.4 Eos # 0.0 Baso # 0.01 APTT 34.7 H pCO2 pO2 HCO3 ABG pH ABG Total CO2 ABG O2 Saturation ABG O2 Content ABG Base Excess ABG Hemoglobin ABG Carboxyhemoglobin POC ABG HHb (Measured) ABG Methemoglobin ABG O2 Capacity Hgb O2 Saturation FiO2 Sodium 138 Potassium 4.6 Chloride 114 H Carbon Dioxide 16 L Anion Gap 13 BUN 53 H Creatinine 1.2 Est GFR ( Amer) 52 Est GFR (Non-Af Amer) 43 POC Glucose (mg/dL) Random Glucose 240 H Serum Osmolality Calcium 7.7 L Total Bilirubin 0.4 AST 35 ALT 24 Alkaline Phosphatase 123 Total Protein 5.5 L Albumin 2.2 L Globulin 3.2 Albumin/Globulin Ratio 0.7 L Urine Osmolality Ur Random Sodium 11/28/16 11/28/16 05:53 10:04 WBC RBC Hgb Hct MCV MCH MCHC RDW Plt Count MPV Gran % Lymph % (Auto) [place] % (Auto) Eos % (Auto) Baso % (Auto) Gran # Lymph # [place] # Eos # Baso # APTT pCO2 pO2 HCO3 ABG pH ABG Total CO2 ABG O2 Saturation ABG O2 Content ABG Base Excess ABG Hemoglobin ABG Carboxyhemoglobin POC ABG HHb (Measured) ABG Methemoglobin ABG O2 Capacity Hgb O2 Saturation FiO2 Sodium Potassium Chloride Carbon Dioxide Anion Gap BUN Creatinine Est GFR ( Amer) Est GFR (Non-Af Amer) POC Glucose (mg/dL) 242 H 253 H Random Glucose Serum Osmolality Calcium Total Bilirubin AST ALT Alkaline Phosphatase Total Protein Albumin Globulin Albumin/Globulin Ratio Urine Osmolality Ur Random Sodium Fingerstick Blood Sugar Results: 226 Review of Systems - Review of Systems Systems not reviewed;Unavailable: Acuity of Condition Critical Care Progress Note - Ventilator Checklist Head of Bed 30 Degrees: Yes Daily Sedation Vacation: Yes Daily Assessment of Readiness to Wean: Yes Daily Spontaneous Breathing Trial: Yes PUD Prophalyxis: Yes - Nutrition Nutrition: Nutrition Category Date Time Status NPO Diet [DIET] Diets 11/27/16 Breakfast Ordered Assessment/Plan - Assessment and Plan (Free Text) Assessment: 81 y/o F w/ Chronic LLE chronic wound. Admitted for worsening celulitis and need for IV abx. Subsequently found to have Aspiration Pneumonitis and respiratory failure Extubated to HFNC resting comfortably. 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 Surgery consulted as well. CX pending. ID following . DNR/DNI status noted from [facility] chart documents. cc time 65 min
--- NOTE | 2016-11-28 18:31 | CP.PCM.PN ---
<Ann-MarieEwi Prashanth - Last Filed: 11/28/16 18:32> Subjective - Date & Time of Evaluation Date of Evaluation: 11/28/16 Time of Evaluation: 08:45 - Subjective Subjective: Pt s/e at bedside. Still intubated. Vitals are stable. Patient's foot has not changed since yesterday. Non-verbal 2/2 intubation and Precedex drip. Objective - Vital Signs/Intake and Output Vital Signs (last 24 hours): Temp Pulse Resp BP Pulse Ox 98.3 F 61 12 89/35 L 100 11/28/16 16:00 11/28/16 16:50 11/28/16 16:50 11/28/16 16:27 11/28/16 16:50 Intake and Output: 11/28/16 11/28/16 06:59 18:59 Intake Total 3195 Output Total 370 Balance 2825 - Medications Medications: Current Medications Enoxaparin Sodium (Lovenox) 40 mg SC DAILY KEO PRN Reason: Protocol Vancomycin HCl (Vancomycin 1gm) 1 gm in 250 mls @ 167 mls/hr IVPB DAILY KEO PRN Reason: Protocol Last Admin: 11/28/16 10:00 Dose: 167 mls/hr Dexmedetomidine HCl (Precedex 4 Mcg/Ml (100 Ml)) 400 mcg in 100 mls @ 3.481 mls /hr IV .Q24H PRN; Protocol; 0.2 MCG/KG/HR PRN Reason: Agitation Last Admin: 11/28/16 05:42 Dose: 0.4 mcg/kg/hr, 6.963 mls/hr Meropenem 500 mg/ Sodium (Chloride) 100 mls @ 100 mls/hr IVPB Q8 KEO PRN Reason: Protocol Stop: 11/28/16 22:59 Last Admin: 11/28/16 14:29 Dose: 100 mls/hr Insulin Human Regular (Humulin R Low) 0 units SC ACHS KEO PRN Reason: Protocol Last Admin: 11/28/16 12:13 Dose: 3 units Pantoprazole Sodium (Protonix Inj) 40 mg IVP DAILY KEO Last Admin: 11/28/16 10:20 Dose: 40 mg - Labs Labs: 11/28/16 05:40 11/28/16 05:40 PT 13.2 Seconds (9.9-11.8) H 11/27/16 11:44 INR 1.22 (0.93-1.08) H 11/27/16 11:44 APTT 34.7 Seconds (23.7-30.8) H 11/28/16 05:40 - Head Exam Head Exam: ATRAUMATIC, NORMAL INSPECTION, NORMOCEPHALIC - Eye Exam Eye Exam: Normal appearance Pupil Exam: PERRL - ENT Exam ENT Exam: Mucous Membranes Moist - Neck Exam Neck Exam: Normal Inspection. absent: Tenderness, Thyromegaly - Respiratory Exam Respiratory Exam: Clear to Ausculation Bilateral, NORMAL BREATHING PATTERN - Cardiovascular Exam Cardiovascular Exam: REGULAR RHYTHM, +S1, +S2 - GI/Abdominal Exam GI & Abdominal Exam: Soft, Normal Bowel Sounds - Rectal Exam Rectal Exam: Deferred - Extremities Exam Extremities Exam: Full ROM, Pedal Edema, Tenderness - Back Exam Back Exam: NORMAL INSPECTION - Neurological Exam Neurological Exam: CN II-XII Intact Assessment and Plan - Assessment and Plan (Free Text) Assessment: Ms. Lorenzo is an 81 y/o female with a PMHx specifically significant for DM, who presents to the ER from [facility] with a complaint of L LE cellulitis. 1.) Acute Respiratory Distress - Intubated - most likely 2/2 Pneumonitis d/t Aspiration - Patient's ox sat was 100 today - Patient admitted to ICU - Continue to monitor 2.) Left Lower Extremity Cellulitis - XR Left Foot: fusion changes of distal tibia/fibula; diffuse demineralization ; No cortical destruction, but may need MRI - Wound Culture: Pending - RPT CBC, BMP - ID C/S (Dr. Alvares): If no improvement, start meropenem. Followed recs - Surg C/S: No surgical intervention at this time - Podiatry C/S (Dr. Gilbert) - Abx: Vanc, Meropenem 3.) Pre-renal ARIEL, likely 2/2 Dehydration - BUN 71, baseline 20s; Cr 1.4, baseline .7 - Nephro C/S: No acute need for renal replacement therapy at this time. Maintain hemodynamics stable. can continue with normal saline @ 75-100 ml/hr. Monitor Input/Output, daily weights and renal function with basic metabolic panel. Check renal sonogram. Dose meds/antibiotics for reduced GFR. Avoid fleets enema/magnesium based laxatives. Avoid nephrotoxins/NSAIDs/ iodinated contrast (unless needed emergently). Glycemic control 4.) Hyperkalemia: resolved - ED at 5.7; today, 4.6 - Insulin, Kayexelate, Albuterol given - Continue to monitor 5.) Leukocytosis without fever, likely 2/2 Cellulitis: resolved - Abx: Meropenem and Vanc; active only Aztreonam and Vanc - Procalcitonin ordered: elevated - Blood, urine and wound cultures ordered - ID, Dr. Alvares consulted 6.) Hx/O HTN - Hold metoprolol for now, patient NPO and intubated 7.) Hx/O DM - Sliding scale insulin low dose; hold metformin 8.) Hx/O A-Fib - Hold eliquis for now 9.) DVT/GI PPHXS - IV Protonix/Heparin <Rosalino MORAES,Brisasaint louisashley - Last Filed: 11/29/16 16:02> Objective - Vital Signs/Intake and Output Vital Signs (last 24 hours): Temp Pulse Resp BP Pulse Ox 98.7 F 72 18 136/61 93 L 11/28/16 23:46 11/29/16 14:30 11/29/16 14:30 11/29/16 14:27 11/29/16 14:30 Intake and Output: 11/29/16 11/29/16 06:59 18:59 Intake Total 100 Output Total 300 Balance -200 - Medications Medications: Current Medications Enoxaparin Sodium (Lovenox) 40 mg SC DAILY KEO PRN Reason: Protocol Last Admin: 11/29/16 14:44 Dose: 40 mg Vancomycin HCl (Vancomycin 1gm) 1 gm in 250 mls @ 167 mls/hr IVPB DAILY KEO PRN Reason: Protocol Last Admin: 11/29/16 14:43 Dose: 167 mls/hr Dexmedetomidine HCl (Precedex 4 Mcg/Ml (100 Ml)) 400 mcg in 100 mls @ 3.481 mls /hr IV .Q24H PRN; Protocol; 0.2 MCG/KG/HR PRN Reason: Agitation Last Admin: 11/28/16 05:42 Dose: 0.4 mcg/kg/hr, 6.963 mls/hr Meropenem 500 mg/ Sodium (Chloride) 100 mls @ 100 mls/hr IVPB Q8 KEO PRN Reason: Protocol Stop: 11/29/16 22:59 Last Admin: 11/29/16 14:39 Dose: 100 mls/hr Insulin Human Regular (Humulin R Low) 0 units SC ACHS KEO PRN Reason: Protocol Last Admin: 11/29/16 11:30 Dose: Not Given Pantoprazole Sodium (Protonix Inj) 40 mg IVP DAILY KEO Last Admin: 11/29/16 10:40 Dose: 40 mg - Labs Labs: 11/29/16 05:02 11/29/16 05:02 PT 13.2 Seconds (9.9-11.8) H 11/27/16 11:44 INR 1.22 (0.93-1.08) H 11/27/16 11:44 APTT 34.7 Seconds (23.7-30.8) H 11/28/16 05:40 Attending/Attestation - Attestation I have personally seen and examined this patient.: Yes I have fully participated in the care of the patient.: Yes I have reviewed all pertinent clinical information, including history, physical exam and plan: Yes Notes (Text): 11/29/16 15:59 81 y/o F with hx of diabetes Mellitus, A fib, hypothyroidism, chronic left swelling and cellulitis, COPD, s/p left PPM initially presented with left leg cellulitis. She was given kayexylate for elevated potassium. she also got IV vancomycin. but she became hypoxic and possibly aspirated. she was intubated for respi failure.Patient is extubated today and is on high flow oxygen.Lung sound are clear.She is DNR/DNI. Patient wound cultures are growing gram negative jono , she is on IV Vancomycin and Meropenem.Blood cultures are negative for any growth. 11/29/16 16:01
--- NOTE | 2016-11-28 19:30 | CP.PCM.PN ---
Subjective - Date & Time of Evaluation Date of Evaluation: 11/28/16 Time of Evaluation: 19:15 - Subjective Subjective: Infectious Disease Follow Up: November 28, 2016 81 yo female well known to me sent from [facility] for Left lower leg cellulitis and chronic ulcerations. She was sent to [facility] for evaluation of worsening renal function. The patient was found to be hyperkalemic. She was given Kayexalate and vomited. She required intubation at that point and was admitted to the MICU. Extubated this afternoon. On high flow oxygen. Cultures negative to date. Objective - Vital Signs/Intake and Output Vital Signs (last 24 hours): Temp Pulse Resp BP Pulse Ox 98.3 F 61 15 83/34 L 100 11/28/16 16:00 11/28/16 18:30 11/28/16 18:30 11/28/16 18:27 11/28/16 18:30 - Medications Medications: Current Medications Enoxaparin Sodium (Lovenox) 40 mg SC DAILY KEO PRN Reason: Protocol Vancomycin HCl (Vancomycin 1gm) 1 gm in 250 mls @ 167 mls/hr IVPB DAILY KEO PRN Reason: Protocol Last Admin: 11/28/16 10:00 Dose: 167 mls/hr Dexmedetomidine HCl (Precedex 4 Mcg/Ml (100 Ml)) 400 mcg in 100 mls @ 3.481 mls /hr IV .Q24H PRN; Protocol; 0.2 MCG/KG/HR PRN Reason: Agitation Last Admin: 11/28/16 05:42 Dose: 0.4 mcg/kg/hr, 6.963 mls/hr Meropenem 500 mg/ Sodium (Chloride) 100 mls @ 100 mls/hr IVPB Q8 KEO PRN Reason: Protocol Stop: 11/28/16 22:59 Last Admin: 11/28/16 14:29 Dose: 100 mls/hr Insulin Human Regular (Humulin R Low) 0 units SC ACHS KEO PRN Reason: Protocol Last Admin: 11/28/16 12:13 Dose: 3 units Pantoprazole Sodium (Protonix Inj) 40 mg IVP DAILY KEO Last Admin: 11/28/16 10:20 Dose: 40 mg - Labs Labs: 11/28/16 05:40 11/28/16 05:40 PT 13.2 Seconds (9.9-11.8) H 11/27/16 11:44 INR 1.22 (0.93-1.08) H 11/27/16 11:44 APTT 34.7 Seconds (23.7-30.8) H 11/28/16 05:40 - Constitutional Appears: Toxic, No Acute Distress, Chronically Ill - Head Exam Head Exam: ATRAUMATIC, NORMOCEPHALIC - Eye Exam Eye Exam: EOMI, PERRL Pupil Exam: NORMAL ACCOMODATION, PERRL - ENT Exam ENT Exam: Mucous Membranes Moist, Normal External Ear Exam, TM's Normal Bilaterally - Neck Exam Neck Exam: Full ROM, Normal Inspection - Respiratory Exam Respiratory Exam: Clear to Ausculation Bilateral, NORMAL BREATHING PATTERN. absent: Rales, Rhonchi, Wheezes - Cardiovascular Exam Cardiovascular Exam: Bradycardia, +S1, +S2 - GI/Abdominal Exam GI & Abdominal Exam: Soft, Normal Bowel Sounds. absent: Distended, Tenderness - Extremities Exam Additional comments: multiple non healing ulcer of the left leg with odor. - Neurological Exam Neurological Exam: Alert, Awake, CN II-XII Intact, Oriented x3 Assessment and Plan - Assessment and Plan (Free Text) Assessment: 81 yo female with worsening renal function and sent to [facility] for evaluation. The patient was found to be hyperkalemia and vomiting in the ER. She required intubation and is not in the MICU. The patient is awake. She is on Precedex currently. She still remains hypotensive. Started on Aztreonam and Vancomycin IV for antibiotic coverage but if no improvement, I would use Meropenem despite PCN allergy. Especially since the patient was intubated and ventilated. Ibrahim cultures sent. Patient did not improve by much and Meropenem was started. Vancomycin IV continued. Extubated this afternoon. On high flow oxygen at 50%. Supportive care. Case discussed with Dr. Chavira today. Patient is critically ill. Question of whether the patient should have amputation of the left leg (a chronic ongoing problem with the left leg). Thank you for allowing me to participate in the care of the patient, we will follow with you.
--- NOTE | 2016-11-28 20:30 | CARD ---
APPROVED REPORT EXAM: Two-dimensional and M-mode echocardiogram with Doppler and color Doppler. INDICATION CARDIAC ARREST 2D DIMENSIONS Left Atrium (2D)5.4 (1.6-4.0cm)IVSd1.0 (0.7-1.1cm) LVDd4.1 (3.9-5.9cm)PWd1.0 (0.7-1.1cm) LVDs2.8 (2.5-4.0cm)FS (%) 31.6 % LVEF (%)59.9 (>50%) M-Mode DIMENSIONS Aortic Root2.50 (2.2-3.7cm)Aortic Cusp Exc.1.40 (1.5-2.0cm) Aortic Valve AoV Peak Aikzaakd620.0cm/Crystal Peak GR.14mmHgAI P 1/2 [id number] Mitral Valve MV E Ozzgjpah03.0cm/sMV A Cirxfqmy81.4cm/sE/A ratio1.4 TDI Lateral E' Peak V7.31cm/sMedial E' Peak V6.34cm/sE/Lateral E'11.6 E/Medial E'13.4 Pulmonary Valve PV Peak Bnlobahx40.7cm/sPV Peak Grad.4mmHg Tricuspid Valve TR Peak Nbsvnvqt380sf/sRAP OZIKFCTF81wuBoGX Peak Gr.70mmHg [id number] LEFT VENTRICLE The left ventricle is normal size. There is borderline concentric left ventricular hypertrophy. The left ventricular function is normal. The left ventricular ejection fraction is within the normal range. There is normal LV segmental wall motion. Transmitral Doppler flow pattern is Grade II-pseudonormal filling dynamics. RIGHT VENTRICLE The right ventricle is mildly dilated. There is normal right ventricular wall thickness. RV Systolic function is moderately reduced. There is a pacemaker lead in the right ventricle. ATRIA The left atrium is moderately dilated. The right atrium is moderately dilated. AORTIC VALVE The aortic valve is mildly thickened. There is mild aortic regurgitation. MITRAL VALVE The mitral valve is mildly thickened. Mitral regurgitation is mild to moderate. TRICUSPID VALVE There is severe tricuspid regurgitation. There is severe pulmonary hypertension. PULMONIC VALVE There is mild pulmonic valvular regurgitation. GREAT VESSELS The aortic root is normal in size. The IVC collapses <50% with inspiration. <Conclusion> There is borderline concentric left ventricular hypertrophy. The left ventricular function is normal. The left ventricular ejection fraction is within the normal range. RV Systolic function is moderately reduced. There is severe tricuspid regurgitation. There is severe pulmonary hypertension. There is mild aortic regurgitation. Mitral regurgitation is mild to moderate.
--- NOTE | 2016-11-28 20:46 | US ---
EXAM: US Retroperitoneal Limited, Renal CLINICAL HISTORY: 81 years old, female; Signs and symptoms; Other: Gael TECHNIQUE: Real-time ultrasound of the retroperitoneum (limited) with image documentation. EXAM DATE/TIME: 11/28/2016 3:32 PM COMPARISON: There are no prior studies for comparison. FINDINGS: Right kidney: Right kidney measures approximately 9.1x 4.9 x 4.5 cm. There is pelvic lipomatosis. There is no pelvocaliectasis. Corticomedullary differentiation is not visualized. Left kidney: Left kidney measures approximately 9.6 x 5.4 x 3.8 cm. There is pelvic lipomatosis.There is no pelvocaliectasis. Corticomedullary differentiation is not visualized. IMPRESSION: Mild bilateral renal atrophy, no hydronephrosis
[2016-11-29 05:50] LABS: BASO # 0.01 K/mm3 (0.0-2.0); BASO % 0.2 % (0.0-3.0); EOS % 0.5 % (1.5-5.0); GRAN # 5.27 (1.4-6.5); GRAN % 84.6 % (50.0-68.0); HEMOGLOBIN 8.2 gm/dL (12.0-16.0); LYMPH # 0.5 (1.2-3.4); LYMPH % 8.4 % (22.0-35.0); MEAN CELL VOLUME 88.8 fL (80.0-105.0); MEAN CORPUSCULAR HEMOGLOBIN 27.1 pg (25.0-35.0); MEAN CORPUSCULAR HGB CONC 30.5 g/dl (31.0-37.0); MEAN PLATELET VOLUME 10.4 fl (7.0-11.0); MONO # 0.4 (0.1-0.6); MONO % 6.3 % (1.0-6.0); PLATELET COUNT 152 10^3/uL (120.0-450.0); RBC 3.03 10^6/uL (3.5-6.1); RED CELL DISTRIBUTION WIDTH 16.4 % (11.5-14.5); WHITE BLOOD COUNT 6.2 10^3/ul (4.5-11.0)
--- NOTE | 2016-11-29 05:57 | CP.CCUPN ---
CCU Subjective - Physician Review Events Since Last Encounter (Free Text): Uneventful, nurse reports. Secretions suctioned. 11/29/16 07:34 CCU Objective - Vital Signs / Intake & Output Vital Signs (Last 4 hours): Vital Signs Pulse Resp BP Pulse Ox 11/29/16 04:00 64 13 100 11/29/16 03:50 65 14 100 11/29/16 03:40 67 14 11/29/16 03:30 64 13 100 11/29/16 03:27 64 13 90/35 L 100 11/29/16 03:20 66 20 100 11/29/16 03:10 64 13 11/29/16 03:00 65 14 100 11/29/16 02:57 66 13 97/32 L 11/29/16 02:50 67 14 11/29/16 02:40 64 13 11/29/16 02:30 64 17 99 11/29/16 02:27 65 14 84/39 L 99 11/29/16 02:20 66 15 11/29/16 02:12 81 16 90/38 L 11/29/16 02:10 74 37 H 11/29/16 02:00 60 12 100 Intake and Output (Last 8hrs): Intake & Output 11/28/16 11/28/16 11/29/16 14:59 22:59 06:59 Intake Total 550 Output Total 400 Balance 150 Weight 147 lb 3.2 oz Intake: IV 550 Right Antecubital 550 Oral 0 Output: Urine 400 Urethral (Ruiz) 400 Other: Voiding Method Indwelling Catheter Indwelling Catheter - Physical Exam Head: Positive for: Atraumatic, Normocephalic Pupils: Positive for: PERRL Extroacular Muscles: Positive for: EOMI Conjunctiva: Positive for: Normal Mouth: Positive for: Moist Mucous Membranes Neck: Positive for: Normal Range of Motion Respiratory/Chest: Positive for: Clear to Auscultation, Good Air Exchange. Negative for: Respiratory Distress, Accessory Muscle Use Cardiovascular: Positive for: Regular Rate and Rhythm, Normal S1, S2. Negative for: Murmurs Abdomen: Positive for: Normal Bowel Sounds. Negative for: Tenderness, Distention, Peritoneal Signs Back: Positive for: Normal Inspection Upper Extremity: Positive for: Normal Inspection. Negative for: Cyanosis, Edema Lower Extremity: Positive for: Normal Inspection, Other (left leg cellulitis with abnormal blood work). Negative for: Edema Neurological: Positive for: GCS=15, CN II-XII Intact, Speech Normal Skin: Positive for: Warm, Dry, Normal Color. Negative for: Rashes Psychiatric: Positive for: Alert, Oriented x 3, Normal Insight, Normal Concentration - Medications Active Medications: Active Medications Generic Name Dose Route Start Last Admin Trade Name Freq PRN Reason Stop Dose Admin Enoxaparin Sodium 40 mg 11/29/16 10:00 Lovenox SC DAILY KEO Protocol Vancomycin HCl 1 gm in 250 mls @ 167 mls/hr 11/28/16 10:00 11/28/16 10:00 Vancomycin 1gm IVPB 167 mls/hr DAILY KEO Administration Protocol Dexmedetomidine HCl 400 mcg in 100 mls @ 3.481 mls/hr 11/27/16 15:40 05:42 Precedex 4 Mcg/Ml (100 Ml) IV 0.4 mcg/kg/hr .Q24H PRN 6.963 mls/hr Agitation Administration Protocol 0.2 MCG/KG/HR Insulin Human Regular 0 units 11/27/16 16:30 11/28/16 21:20 Humulin R Low SC Not Given ACHS KEO Protocol Pantoprazole Sodium 40 mg 11/28/16 10:00 11/28/16 10:20 Protonix Inj IVP 40 mg DAILY KEO Administration - Patient Studies Lab Studies: Microbiology Studies 11/28/16 15:25 Gram Stain - Final Foot - Left Lab Studies 11/29/16 11/28/16 11/28/16 Range/Units 05:02 21:20 17:58 WBC 6.2 D (4.5-11.0) 10^3/ul RBC 3.03 L (3.5-6.1) 10^6/uL Hgb 8.2 L (12.0-16.0) gm/dL Hct 26.9 L (36.0-48.0) % MCV 88.8 (80.0-105.0) fL MCH 27.1 (25.0-35.0) pg MCHC 30.5 L (31.0-37.0) g/dl RDW 16.4 H (11.5-14.5) % Plt Count 152 (120.0-450.0) 10^3/uL MPV 10.4 (7.0-11.0) fl Gran % 84.6 H (50.0-68.0) % Lymph % (Auto) 8.4 L (22.0-35.0) % Wallace % (Auto) 6.3 H (1.0-6.0) % Eos % (Auto) 0.5 L (1.5-5.0) % Baso % (Auto) 0.2 (0.0-3.0) % Gran # 5.27 (1.4-6.5) Lymph # 0.5 L (1.2-3.4) Wallace # 0.4 (0.1-0.6) Eos # 0.0 (0.0-0.7) Baso # 0.01 (0.0-2.0) K/mm3 APTT (23.7-30.8) Seconds pCO2 (35-45) mm/Hg pO2 (80-100) mm/Hg HCO3 (21-28) mmol/L ABG pH (7.35-7.45) ABG Total CO2 (22-28) mmol.L ABG O2 Saturation (95-98) % ABG O2 Content (15-23) ML/dl ABG Base Excess (-2.0-3.0) mmol/L ABG Hemoglobin (11.7-17.4) g/dL ABG Carboxyhemoglobin (0.5-1.5) % POC ABG HHb (Measured) (0-5) % ABG Methemoglobin (0.0-3.0) % ABG O2 Capacity (16-24) mL/dl Hgb O2 Saturation (95.0-98.0) % FiO2 % Sodium (132-148) mmol/L Potassium (3.6-5.0) mmol/L Chloride (98-107) mmol/L Carbon Dioxide (21-33) mmol/L Anion Gap (10-20) BUN (7-21) mg/dL Creatinine (0.5-1.4) mg/dL Est GFR ( Amer) Est GFR (Non-Af Amer) POC Glucose (mg/dL) 138 H 198 H (65-110) mg/dL Random Glucose (70-110) mg/dL Calcium (8.4-10.5) mg/dL Total Bilirubin (0.2-1.3) mg/dL AST (15-39) U/L ALT (7-56) U/L Alkaline Phosphatase (38-133) U/L Total Protein (5.8-8.3) g/dL Albumin (3.0-4.8) g/dL Globulin gm/dL Albumin/Globulin Ratio (1.1-1.8) 11/28/16 11/28/16 11/28/16 Range/Units 13:54 10:04 05:53 WBC (4.5-11.0) 10^3/ul RBC (3.5-6.1) 10^6/uL Hgb (12.0-16.0) gm/dL Hct (36.0-48.0) % MCV (80.0-105.0) fL MCH (25.0-35.0) pg MCHC (31.0-37.0) g/dl RDW (11.5-14.5) % Plt Count (120.0-450.0) 10^3/uL MPV (7.0-11.0) fl Gran % (50.0-68.0) % Lymph % (Auto) (22.0-35.0) % Wallace % (Auto) (1.0-6.0) % Eos % (Auto) (1.5-5.0) % Baso % (Auto) (0.0-3.0) % Gran # (1.4-6.5) Lymph # (1.2-3.4) Wallace # (0.1-0.6) Eos # (0.0-0.7) Baso # (0.0-2.0) K/mm3 APTT (23.7-30.8) Seconds pCO2 (35-45) mm/Hg pO2 (80-100) mm/Hg HCO3 (21-28) mmol/L ABG pH (7.35-7.45) ABG Total CO2 (22-28) mmol.L ABG O2 Saturation (95-98) % ABG O2 Content (15-23) ML/dl ABG Base Excess (-2.0-3.0) mmol/L ABG Hemoglobin (11.7-17.4) g/dL ABG Carboxyhemoglobin (0.5-1.5) % POC ABG HHb (Measured) (0-5) % ABG Methemoglobin (0.0-3.0) % ABG O2 Capacity (16-24) mL/dl Hgb O2 Saturation (95.0-98.0) % FiO2 % Sodium (132-148) mmol/L Potassium (3.6-5.0) mmol/L Chloride (98-107) mmol/L Carbon Dioxide (21-33) mmol/L Anion Gap (10-20) BUN (7-21) mg/dL Creatinine (0.5-1.4) mg/dL Est GFR ( Amer) Est GFR (Non-Af Amer) POC Glucose (mg/dL) 226 H 253 H 242 H (65-110) mg/dL Random Glucose (70-110) mg/dL Calcium (8.4-10.5) mg/dL Total Bilirubin (0.2-1.3) mg/dL AST (15-39) U/L ALT (7-56) U/L Alkaline Phosphatase (38-133) U/L Total Protein (5.8-8.3) g/dL Albumin (3.0-4.8) g/dL Globulin gm/dL Albumin/Globulin Ratio (1.1-1.8) 11/28/16 11/28/16 11/28/16 Range/Units 05:40 05:40 05:40 WBC 9.2 D (4.5-11.0) 10^3/ul RBC 3.35 L (3.5-6.1) 10^6/uL Hgb 9.0 L (12.0-16.0) gm/dL Hct 29.5 L (36.0-48.0) % MCV 88.1 (80.0-105.0) fL MCH 26.9 (25.0-35.0) pg MCHC 30.5 L (31.0-37.0) g/dl RDW 16.2 H (11.5-14.5) % Plt Count 137 (120.0-450.0) 10^3/uL MPV 10.9 (7.0-11.0) fl Gran % 91.4 H (50.0-68.0) % Lymph % (Auto) 4.0 L (22.0-35.0) % Wallace % (Auto) 4.5 (1.0-6.0) % Eos % (Auto) 0.0 L (1.5-5.0) % Baso % (Auto) 0.1 (0.0-3.0) % Gran # 8.44 H (1.4-6.5) Lymph # 0.4 L (1.2-3.4) Wallace # 0.4 (0.1-0.6) Eos # 0.0 (0.0-0.7) Baso # 0.01 (0.0-2.0) K/mm3 APTT 34.7 H (23.7-30.8) Seconds pCO2 (35-45) mm/Hg pO2 (80-100) mm/Hg HCO3 (21-28) mmol/L ABG pH (7.35-7.45) ABG Total CO2 (22-28) mmol.L ABG O2 Saturation (95-98) % ABG O2 Content (15-23) ML/dl ABG Base Excess (-2.0-3.0) mmol/L ABG Hemoglobin (11.7-17.4) g/dL ABG Carboxyhemoglobin (0.5-1.5) % POC ABG HHb (Measured) (0-5) % ABG Methemoglobin (0.0-3.0) % ABG O2 Capacity (16-24) mL/dl Hgb O2 Saturation (95.0-98.0) % FiO2 % Sodium 138 (132-148) mmol/L Potassium 4.6 (3.6-5.0) mmol/L Chloride 114 H (98-107) mmol/L Carbon Dioxide 16 L (21-33) mmol/L Anion Gap 13 (10-20) BUN 53 H (7-21) mg/dL Creatinine 1.2 (0.5-1.4) mg/dL Est GFR ( Amer) 52 Est GFR (Non-Af Amer) 43 POC Glucose (mg/dL) (65-110) mg/dL Random Glucose 240 H (70-110) mg/dL Calcium 7.7 L (8.4-10.5) mg/dL Total Bilirubin 0.4 (0.2-1.3) mg/dL AST 35 (15-39) U/L ALT 24 (7-56) U/L Alkaline Phosphatase 123 (38-133) U/L Total Protein 5.5 L (5.8-8.3) g/dL Albumin 2.2 L (3.0-4.8) g/dL Globulin 3.2 gm/dL Albumin/Globulin Ratio 0.7 L (1.1-1.8) 11/28/16 Range/Units 05:20 WBC (4.5-11.0) 10^3/ul RBC (3.5-6.1) 10^6/uL Hgb (12.0-16.0) gm/dL Hct (36.0-48.0) % MCV (80.0-105.0) fL MCH (25.0-35.0) pg MCHC (31.0-37.0) g/dl RDW (11.5-14.5) % Plt Count (120.0-450.0) 10^3/uL MPV (7.0-11.0) fl Gran % (50.0-68.0) % Lymph % (Auto) (22.0-35.0) % Wallace % (Auto) (1.0-6.0) % Eos % (Auto) (1.5-5.0) % Baso % (Auto) (0.0-3.0) % Gran # (1.4-6.5) Lymph # (1.2-3.4) Wallace # (0.1-0.6) Eos # (0.0-0.7) Baso # (0.0-2.0) K/mm3 APTT (23.7-30.8) Seconds pCO2 36 (35-45) mm/Hg pO2 80.0 (80-100) mm/Hg HCO3 15.1 L (21-28) mmol/L ABG pH 7.23 L (7.35-7.45) ABG Total CO2 16.2 L (22-28) mmol.L ABG O2 Saturation 97.4 (95-98) % ABG O2 Content 11.9 L (15-23) ML/dl ABG Base Excess -11.5 L (-2.0-3.0) mmol/L ABG Hemoglobin 8.8 L (11.7-17.4) g/dL ABG Carboxyhemoglobin 1.6 H (0.5-1.5) % POC ABG HHb (Measured) 2.5 (0-5) % ABG Methemoglobin 0.8 (0.0-3.0) % ABG O2 Capacity 12.2 L (16-24) mL/dl Hgb O2 Saturation 95.1 (95.0-98.0) % FiO2 60.0 % Sodium (132-148) mmol/L Potassium (3.6-5.0) mmol/L Chloride (98-107) mmol/L Carbon Dioxide (21-33) mmol/L Anion Gap (10-20) BUN (7-21) mg/dL Creatinine (0.5-1.4) mg/dL Est GFR ( Amer) Est GFR (Non-Af Amer) POC Glucose (mg/dL) (65-110) mg/dL Random Glucose (70-110) mg/dL Calcium (8.4-10.5) mg/dL Total Bilirubin (0.2-1.3) mg/dL AST (15-39) U/L ALT (7-56) U/L Alkaline Phosphatase (38-133) U/L Total Protein (5.8-8.3) g/dL Albumin (3.0-4.8) g/dL Globulin gm/dL Albumin/Globulin Ratio (1.1-1.8) Laboratory Results - last 24 hr 11/28/16 11/28/16 11/28/16 05:20 05:40 05:40 WBC 9.2 D RBC 3.35 L Hgb 9.0 L Hct 29.5 L MCV 88.1 MCH 26.9 MCHC 30.5 L RDW 16.2 H Plt Count 137 MPV 10.9 Gran % 91.4 H Lymph % (Auto) 4.0 L Wallace % (Auto) 4.5 Eos % (Auto) 0.0 L Baso % (Auto) 0.1 Gran # 8.44 H Lymph # 0.4 L Wallace # 0.4 Eos # 0.0 Baso # 0.01 APTT pCO2 36 pO2 80.0 HCO3 15.1 L ABG pH 7.23 L ABG Total CO2 16.2 L ABG O2 Saturation 97.4 ABG O2 Content 11.9 L ABG Base Excess -11.5 L ABG Hemoglobin 8.8 L ABG Carboxyhemoglobin 1.6 H POC ABG HHb (Measured) 2.5 ABG Methemoglobin 0.8 ABG O2 Capacity 12.2 L Hgb O2 Saturation 95.1 FiO2 60.0 Sodium 138 Potassium 4.6 Chloride 114 H Carbon Dioxide 16 L Anion Gap 13 BUN 53 H Creatinine 1.2 Est GFR ( Amer) 52 Est GFR (Non-Af Amer) 43 POC Glucose (mg/dL) Random Glucose 240 H Calcium 7.7 L Total Bilirubin 0.4 AST 35 ALT 24 Alkaline Phosphatase 123 Total Protein 5.5 L Albumin 2.2 L Globulin 3.2 Albumin/Globulin Ratio 0.7 L 11/28/16 11/28/16 11/28/16 05:40 05:53 10:04 WBC RBC Hgb Hct MCV MCH MCHC RDW Plt Count MPV Gran % Lymph % (Auto) Wallace % (Auto) Eos % (Auto) Baso % (Auto) Gran # Lymph # Wallace # Eos # Baso # APTT 34.7 H pCO2 pO2 HCO3 ABG pH ABG Total CO2 ABG O2 Saturation ABG O2 Content ABG Base Excess ABG Hemoglobin ABG Carboxyhemoglobin POC ABG HHb (Measured) ABG Methemoglobin ABG O2 Capacity Hgb O2 Saturation FiO2 Sodium Potassium Chloride Carbon Dioxide Anion Gap BUN Creatinine Est GFR ( Amer) Est GFR (Non-Af Amer) POC Glucose (mg/dL) 242 H 253 H Random Glucose Calcium Total Bilirubin AST ALT Alkaline Phosphatase Total Protein Albumin Globulin Albumin/Globulin Ratio 11/28/16 11/28/16 11/28/16 13:54 17:58 21:20 WBC RBC Hgb Hct MCV MCH MCHC RDW Plt Count MPV Gran % Lymph % (Auto) Wallace % (Auto) Eos % (Auto) Baso % (Auto) Gran # Lymph # Wallace # Eos # Baso # APTT pCO2 pO2 HCO3 ABG pH ABG Total CO2 ABG O2 Saturation ABG O2 Content ABG Base Excess ABG Hemoglobin ABG Carboxyhemoglobin POC ABG HHb (Measured) ABG Methemoglobin ABG O2 Capacity Hgb O2 Saturation FiO2 Sodium Potassium Chloride Carbon Dioxide Anion Gap BUN Creatinine Est GFR ( Amer) Est GFR (Non-Af Amer) POC Glucose (mg/dL) 226 H 198 H 138 H Random Glucose Calcium Total Bilirubin AST ALT Alkaline Phosphatase Total Protein Albumin Globulin Albumin/Globulin Ratio 11/29/16 05:02 WBC 6.2 D RBC 3.03 L Hgb 8.2 L Hct 26.9 L MCV 88.8 MCH 27.1 MCHC 30.5 L RDW 16.4 H Plt Count 152 MPV 10.4 Gran % 84.6 H Lymph % (Auto) 8.4 L Wallace % (Auto) 6.3 H Eos % (Auto) 0.5 L Baso % (Auto) 0.2 Gran # 5.27 Lymph # 0.5 L Wallace # 0.4 Eos # 0.0 Baso # 0.01 APTT pCO2 pO2 HCO3 ABG pH ABG Total CO2 ABG O2 Saturation ABG O2 Content ABG Base Excess ABG Hemoglobin ABG Carboxyhemoglobin POC ABG HHb (Measured) ABG Methemoglobin ABG O2 Capacity Hgb O2 Saturation FiO2 Sodium Potassium Chloride Carbon Dioxide Anion Gap BUN Creatinine Est GFR ( Amer) Est GFR (Non-Af Amer) POC Glucose (mg/dL) Random Glucose Calcium Total Bilirubin AST ALT Alkaline Phosphatase Total Protein Albumin Globulin Albumin/Globulin Ratio Fingerstick Blood Sugar Results: 116 Critical Care Progress Note - Nutrition Nutrition: Nutrition Category Date Time Status NPO Diet [DIET] Diets 11/27/16 Breakfast Ordered Assessment/Plan - Assessment and Plan (Free Text) Assessment: 81 yo female with a PMH of DM, atrial fibrillation, hypothyroidism, COPD chronic LLE swelling, and active cellulitis who was admitted to the ICU for ARF in the setting of aspiration pneumonitis.
[2016-11-29 06:11] LABS: ALB/GLOB RATIO 0.7 (1.1-1.8); ALBUMIN 2.2 g/dL (3.0-4.8); CALCIUM 7.6 mg/dL (8.4-10.5)
[2016-11-29] MEDS: Insulin Reg-LOW-Coverage SC SCH ×4 (08:13→21:50)
--- NOTE | 2016-11-29 09:59 | CP.PCM.PN ---
Subjective - Date & Time of Evaluation Date of Evaluation: 11/29/16 Time of Evaluation: 09:53 - Subjective Subjective: General Surgery Dr. Oneill Patient seen and examined this morning at bedside. No acute events over night. Patient was extubated yesterday. She states she is currently in no pain and feeling better. Objective - Vital Signs/Intake and Output Vital Signs (last 24 hours): Temp Pulse Resp BP Pulse Ox 98.7 F 76 14 94/35 L 97 11/28/16 23:46 11/29/16 08:00 11/29/16 08:00 11/29/16 07:27 11/29/16 08:00 Intake and Output: 11/29/16 11/29/16 06:59 18:59 Intake Total 100 Output Total 300 Balance -200 - Medications Medications: Current Medications Enoxaparin Sodium (Lovenox) 40 mg SC DAILY KEO PRN Reason: Protocol Vancomycin HCl (Vancomycin 1gm) 1 gm in 250 mls @ 167 mls/hr IVPB DAILY KEO PRN Reason: Protocol Last Admin: 11/28/16 10:00 Dose: 167 mls/hr Dexmedetomidine HCl (Precedex 4 Mcg/Ml (100 Ml)) 400 mcg in 100 mls @ 3.481 mls /hr IV .Q24H PRN; Protocol; 0.2 MCG/KG/HR PRN Reason: Agitation Last Admin: 11/28/16 05:42 Dose: 0.4 mcg/kg/hr, 6.963 mls/hr Meropenem 500 mg/ Sodium (Chloride) 100 mls @ 100 mls/hr IVPB Q8 KEO PRN Reason: Protocol Stop: 11/29/16 22:59 Insulin Human Regular (Humulin R Low) 0 units SC ACHS KEO PRN Reason: Protocol Last Admin: 11/29/16 08:13 Dose: Not Given Pantoprazole Sodium (Protonix Inj) 40 mg IVP DAILY KEO Last Admin: 11/28/16 10:20 Dose: 40 mg - Labs Labs: 11/29/16 05:02 11/29/16 05:02 PT 13.2 Seconds (9.9-11.8) H 11/27/16 11:44 INR 1.22 (0.93-1.08) H 11/27/16 11:44 APTT 34.7 Seconds (23.7-30.8) H 11/28/16 05:40 - Constitutional Appears: No Acute Distress - Respiratory Exam Respiratory Exam: NORMAL BREATHING PATTERN. absent: Accessory Muscle Use, Respiratory Distress - Cardiovascular Exam Cardiovascular Exam: REGULAR RHYTHM - Extremities Exam Additional comments: Left LE edema improving. There are several non-healing ulcers with purulent drainage and erythema. Foot is warm with good capillary refill. - Neurological Exam Neurological Exam: Alert, Awake, Oriented x3 - Psychiatric Exam Psychiatric exam: Normal Affect, Normal Mood Assessment and Plan - Assessment and Plan (Free Text) Assessment: 81 yo F w/ chronic LLE cellulitis Plan: Continue Abx as per ID Monitor progression of wounds Discussed option of amputation with patient, currently has no decision No surgical intervention at this time Will discuss with Dr. Nino Burgos Reginald PGY1
--- NOTE | 2016-11-29 12:01 | CP.PCM.PN ---
Subjective - Date & Time of Evaluation Date of Evaluation: 11/29/16 Time of Evaluation: 11:55 - Subjective Subjective: Follow up Nephrology Consultation Note Assessment: stable Acute Kidney Injury (N17.9) likely pre-renal state as also evident by low urine Na and high BUN/creat ratio further contributed by hypotension/shock state. Glomerulonephritis less likely. Hyponatremia, Hyperkalemia: resolved. Non-anion gap metabolic acidosis likely due to saline infusion: improved microscopic hematuria Anemia, left leg cellulitis, DM, acute respiratory failure, A fib, Hypoalbuminemia Plan renal function stable. maintain hemodynamics stable. Monitor Input/Output, daily weights and renal function with basic metabolic panel dose vanco by level. management of left leg cellulitis as per ID, surgery and primary team Dose meds/antibiotics for reduced GFR. Avoid fleets enema/magnesium based laxatives. Avoid nephrotoxins/NSAIDs/ iodinated contrast (unless needed emergently) Glycemic control Further work up/management as per primary team Thanks for allowing me to participate in care of your patient. Please call if any Qs. d/w ICU team. Dr Gustavo Tanner Office: [phone] HPI: Pt is 81 y/o F with hx of diabetes Mellitus, A fib, hypothyroidism, chronic left swelling and cellulitis, COPD, s/p left PPM initially presented with left leg cellulitis. She was given kayexylate for elevated potassium. she also got IV vancomycin. but she became hypoxic and possibly aspirated. she was intubated for respi failure and renal consult was requested for ARIEL and elevated BUN. she has been hypotensive BP in 80s. No known recent iodinated contrast exposure. Subjective: Noted events overnight. Patients feels okay. Denies chest pain, palpitation, shortness of breath, No urinary complaints but has jaquez. she was extubated 11/28 Physical Examination: General Appearance: Comfortable, in no acute respiratory distress, co- operative. Vitals reviewed and noted as below Lungs: Normal respiratory rate/effort. Breath sounds bilateral equal and clear Heart: Normal rate. s1s2 normal. No rub or gallop. Extremities: no edema in RLE, has chronic LLE edema and has overlying dressing over wound. Neurological: Patient is alert, awake No focal deficit. Strength bilateral appropriate and equal Skin: Warm and dry. Normal turgor. No rash. Palpitation: Normal elasticity for age Abdomen: Abdomen is soft. Bowel sounds +. There is no abdominal tenderness, no guarding/rigidity or organomegaly : kidney or bladder not palpable has jaquez Labs/imaging reviewed. Past medical history, past surgical history, family history, social history, allergy reviewed renal sono: b/l atrophy and loss of corticomedullar differentiation UA: no cellular casts Objective - Vital Signs/Intake and Output Vital Signs (last 24 hours): Temp Pulse Resp BP Pulse Ox 98.7 F 76 14 94/35 L 97 11/28/16 23:46 11/29/16 08:00 11/29/16 08:00 11/29/16 07:27 11/29/16 08:00 Intake and Output: 11/29/16 11/29/16 06:59 18:59 Intake Total 100 Output Total 300 Balance -200 - Medications Medications: Current Medications Enoxaparin Sodium (Lovenox) 40 mg SC DAILY [facility] PRN Reason: Protocol Vancomycin HCl (Vancomycin 1gm) 1 gm in 250 mls @ 167 mls/hr IVPB DAILY [facility] PRN Reason: Protocol Last Admin: 11/28/16 10:00 Dose: 167 mls/hr Dexmedetomidine HCl (Precedex 4 Mcg/Ml (100 Ml)) 400 mcg in 100 mls @ 3.481 mls /hr IV .Q24H PRN; Protocol; 0.2 MCG/KG/HR PRN Reason: Agitation Last Admin: 11/28/16 05:42 Dose: 0.4 mcg/kg/hr, 6.963 mls/hr Meropenem 500 mg/ Sodium (Chloride) 100 mls @ 100 mls/hr IVPB Q8 [facility]O PRN Reason: Protocol Stop: 11/29/16 22:59 Insulin Human Regular (Humulin R Low) 0 units SC ACHS KEO PRN Reason: Protocol Last Admin: 11/29/16 08:13 Dose: Not Given Pantoprazole Sodium (Protonix Inj) 40 mg IVP DAILY [facility] Last Admin: 11/28/16 10:20 Dose: 40 mg - Labs Labs: 11/29/16 05:02 11/29/16 05:02 PT 13.2 Seconds (9.9-11.8) H 11/27/16 11:44 INR 1.22 (0.93-1.08) H 11/27/16 11:44 APTT 34.7 Seconds (23.7-30.8) H 11/28/16 05:40
--- NOTE | 2016-11-29 12:15 | CP.CCUPN ---
CCU Subjective - Physician Review Events Since Last Encounter (Free Text): 11/29/16 12:12 81 y/o F w/ Acute hypoxemic respiratory failure due to aspiration pneumonitis Overnight no acute events. Transitioned to [facility] from [facility] CCU Objective - Vital Signs / Intake & Output Vital Signs (Last 4 hours): Vital Signs Pulse Resp BP Pulse Ox 11/29/16 12:00 65 16 99 11/29/16 11:50 68 14 99 11/29/16 11:40 65 15 99 11/29/16 11:30 68 14 99 11/29/16 11:27 67 14 123/48 L 98 11/29/16 11:20 64 12 98 11/29/16 11:10 73 99 11/29/16 11:00 66 18 99 11/29/16 10:50 66 8 L 99 11/29/16 10:40 69 9 L 99 11/29/16 10:30 68 99 11/29/16 10:27 68 10 L 117/36 L 98 11/29/16 10:20 69 20 99 11/29/16 10:10 70 15 98 11/29/16 10:00 70 16 99 11/29/16 09:50 61 11 L 98 11/29/16 09:40 61 13 98 11/29/16 09:30 61 7 L 97 11/29/16 09:27 64 9 L 102/40 L 97 11/29/16 09:20 65 10 L 98 11/29/16 09:10 71 15 95 11/29/16 09:00 70 14 96 11/29/16 08:50 70 15 96 11/29/16 08:40 69 15 96 11/29/16 08:30 73 16 96 11/29/16 08:27 68 18 95/40 L 96 11/29/16 08:20 69 18 97 Intake and Output (Last 8hrs): Intake & Output 11/28/16 11/29/16 11/29/16 22:59 06:59 14:59 Intake Total 550 100 Output Total 400 300 Balance 150 -200 Intake: IV 550 100 Left Wrist 100 Right Antecubital 550 Oral 0 0 Output: Urine 400 300 Urethral (Ruiz) 400 300 Other: Voiding Method Indwelling Catheter Indwelling Catheter # Bowel Movements 1 - Physical Exam Head: Positive for: Atraumatic, Normocephalic Pupils: Positive for: PERRL Extroacular Muscles: Positive for: EOMI Conjunctiva: Positive for: Normal Mouth: Positive for: Moist Mucous Membranes Neck: Positive for: Normal Range of Motion Respiratory/Chest: Positive for: Clear to Auscultation, Good Air Exchange. Negative for: Respiratory Distress, Accessory Muscle Use Cardiovascular: Positive for: Regular Rate and Rhythm, Normal S1, S2. Negative for: Murmurs Abdomen: Positive for: Normal Bowel Sounds. Negative for: Tenderness, Distention, Peritoneal Signs Back: Positive for: Normal Inspection Upper Extremity: Positive for: Normal Inspection. Negative for: Cyanosis, Edema Lower Extremity: Positive for: Normal Inspection, Other (left leg cellulitis with abnormal blood work). Negative for: Edema Neurological: Positive for: GCS=15, CN II-XII Intact, Speech Normal Skin: Positive for: Warm, Dry, Normal Color. Negative for: Rashes Psychiatric: Positive for: Alert, Oriented x 3, Normal Insight, Normal Concentration - Medications Active Medications: Active Medications Generic Name Dose Route Start Last Admin Trade Name Freq PRN Reason Stop Dose Admin Enoxaparin Sodium 40 mg 11/29/16 10:00 Lovenox SC DAILY [facility] Protocol Vancomycin HCl 1 gm in 250 mls @ 167 mls/hr 11/28/16 10:00 11/28/16 10:00 Vancomycin 1gm IVPB 167 mls/hr DAILY [facility] Administration Protocol Dexmedetomidine HCl 400 mcg in 100 mls @ 3.481 mls/hr 11/27/16 15:40 05:42 Precedex 4 Mcg/Ml (100 Ml) IV 0.4 mcg/kg/hr .Q24H PRN 6.963 mls/hr Agitation Administration Protocol 0.2 MCG/KG/HR Meropenem 500 mg/ Sodium 100 mls @ 100 mls/hr 11/29/16 14:00 Chloride IVPB 11/29/16 22:59 Q8 [facility] Protocol Insulin Human Regular 0 units 11/27/16 16:30 11/29/16 08:13 Humulin R Low SC Not Given ACHS [facility] Protocol Pantoprazole Sodium 40 mg 11/28/16 10:00 11/28/16 10:20 Protonix Inj IVP 40 mg DAILY [facility] Administration - Patient Studies Lab Studies: Microbiology Studies 11/27/16 18:18 MRSA Culture (Admit) - Final Nose MRSA NOT DETECTED 11/28/16 15:25 Gram Stain - Final Foot - Left Wound Culture - Preliminary Gram Negative [facility] Lab Studies 11/29/16 11/29/16 11/29/16 Range/Units 06:23 05:02 05:02 WBC 6.2 D (4.5-11.0) 10^3/ul RBC 3.03 L (3.5-6.1) 10^6/uL Hgb 8.2 L (12.0-16.0) gm/dL Hct 26.9 L (36.0-48.0) % MCV 88.8 (80.0-105.0) fL MCH 27.1 (25.0-35.0) pg MCHC 30.5 L (31.0-37.0) g/dl RDW 16.4 H (11.5-14.5) % Plt Count 152 (120.0-450.0) 10^3/uL MPV 10.4 (7.0-11.0) fl Gran % 84.6 H (50.0-68.0) % Lymph % (Auto) 8.4 L (22.0-35.0) % [place] % (Auto) 6.3 H (1.0-6.0) % Eos % (Auto) 0.5 L (1.5-5.0) % Baso % (Auto) 0.2 (0.0-3.0) % Gran # 5.27 (1.4-6.5) Lymph # 0.5 L (1.2-3.4) [place] # 0.4 (0.1-0.6) Eos # 0.0 (0.0-0.7) Baso # 0.01 (0.0-2.0) K/mm3 Sodium 145 (132-148) mmol/L Potassium 4.0 (3.6-5.0) mmol/L Chloride 116 H (98-107) mmol/L Carbon Dioxide 22 (21-33) mmol/L Anion Gap 11 (10-20) BUN 54 H (7-21) mg/dL Creatinine 1.3 (0.5-1.4) mg/dL Est GFR ( Amer) 47 Est GFR (Non-Af Amer) 39 POC Glucose (mg/dL) 131 H (65-110) mg/dL Random Glucose 120 H (70-110) mg/dL Calcium 7.6 L (8.4-10.5) mg/dL Total Bilirubin 0.3 (0.2-1.3) mg/dL AST 30 (15-39) U/L ALT 26 (7-56) U/L Alkaline Phosphatase 108 (38-133) U/L Total Protein 5.3 L (5.8-8.3) g/dL Albumin 2.2 L (3.0-4.8) g/dL Globulin 3.2 gm/dL Albumin/Globulin Ratio 0.7 L (1.1-1.8) 11/29/16 11/28/16 11/28/16 Range/Units 02:07 21:20 17:58 WBC (4.5-11.0) 10^3/ul RBC (3.5-6.1) 10^6/uL Hgb (12.0-16.0) gm/dL Hct (36.0-48.0) % MCV (80.0-105.0) fL MCH (25.0-35.0) pg MCHC (31.0-37.0) g/dl RDW (11.5-14.5) % Plt Count (120.0-450.0) 10^3/uL MPV (7.0-11.0) fl Gran % (50.0-68.0) % Lymph % (Auto) (22.0-35.0) % [place] % (Auto) (1.0-6.0) % Eos % (Auto) (1.5-5.0) % Baso % (Auto) (0.0-3.0) % Gran # (1.4-6.5) Lymph # (1.2-3.4) [place] # (0.1-0.6) Eos # (0.0-0.7) Baso # (0.0-2.0) K/mm3 Sodium (132-148) mmol/L Potassium (3.6-5.0) mmol/L Chloride (98-107) mmol/L Carbon Dioxide (21-33) mmol/L Anion Gap (10-20) BUN (7-21) mg/dL Creatinine (0.5-1.4) mg/dL Est GFR ( Amer) Est GFR (Non-Af Amer) POC Glucose (mg/dL) 116 H 138 H 198 H (65-110) mg/dL Random Glucose (70-110) mg/dL Calcium (8.4-10.5) mg/dL Total Bilirubin (0.2-1.3) mg/dL AST (15-39) U/L ALT (7-56) U/L Alkaline Phosphatase (38-133) U/L Total Protein (5.8-8.3) g/dL Albumin (3.0-4.8) g/dL Globulin gm/dL Albumin/Globulin Ratio (1.1-1.8) 11/28/16 11/28/16 11/28/16 Range/Units 13:54 10:04 05:53 WBC (4.5-11.0) 10^3/ul RBC (3.5-6.1) 10^6/uL Hgb (12.0-16.0) gm/dL Hct (36.0-48.0) % MCV (80.0-105.0) fL MCH (25.0-35.0) pg MCHC (31.0-37.0) g/dl RDW (11.5-14.5) % Plt Count (120.0-450.0) 10^3/uL MPV (7.0-11.0) fl Gran % (50.0-68.0) % Lymph % (Auto) (22.0-35.0) % [place] % (Auto) (1.0-6.0) % Eos % (Auto) (1.5-5.0) % Baso % (Auto) (0.0-3.0) % Gran # (1.4-6.5) Lymph # (1.2-3.4) [place] # (0.1-0.6) Eos # (0.0-0.7) Baso # (0.0-2.0) K/mm3 Sodium (132-148) mmol/L Potassium (3.6-5.0) mmol/L Chloride (98-107) mmol/L Carbon Dioxide (21-33) mmol/L Anion Gap (10-20) BUN (7-21) mg/dL Creatinine (0.5-1.4) mg/dL Est GFR ( Amer) Est GFR (Non-Af Amer) POC Glucose (mg/dL) 226 H 253 H 242 H (65-110) mg/dL Random Glucose (70-110) mg/dL Calcium (8.4-10.5) mg/dL Total Bilirubin (0.2-1.3) mg/dL AST (15-39) U/L ALT (7-56) U/L Alkaline Phosphatase (38-133) U/L Total Protein (5.8-8.3) g/dL Albumin (3.0-4.8) g/dL Globulin gm/dL Albumin/Globulin Ratio (1.1-1.8) Laboratory Results - last 24 hr 11/28/16 11/28/16 11/28/16 05:53 10:04 13:54 WBC RBC Hgb Hct MCV MCH MCHC RDW Plt Count MPV Gran % Lymph % (Auto) [place] % (Auto) Eos % (Auto) Baso % (Auto) Gran # Lymph # [place] # Eos # Baso # Sodium Potassium Chloride Carbon Dioxide Anion Gap BUN Creatinine Est GFR ( Amer) Est GFR (Non-Af Amer) POC Glucose (mg/dL) 242 H 253 H 226 H Random Glucose Calcium Total Bilirubin AST ALT Alkaline Phosphatase Total Protein Albumin Globulin Albumin/Globulin Ratio 11/28/16 11/28/16 11/29/16 17:58 21:20 02:07 WBC RBC Hgb Hct MCV MCH MCHC RDW Plt Count MPV Gran % Lymph % (Auto) [place] % (Auto) Eos % (Auto) Baso % (Auto) Gran # Lymph # [place] # Eos # Baso # Sodium Potassium Chloride Carbon Dioxide Anion Gap BUN Creatinine Est GFR ( Amer) Est GFR (Non-Af Amer) POC Glucose (mg/dL) 198 H 138 H 116 H Random Glucose Calcium Total Bilirubin AST ALT Alkaline Phosphatase Total Protein Albumin Globulin Albumin/Globulin Ratio 11/29/16 11/29/16 11/29/16 05:02 05:02 06:23 WBC 6.2 D RBC 3.03 L Hgb 8.2 L Hct 26.9 L MCV 88.8 MCH 27.1 MCHC 30.5 L RDW 16.4 H Plt Count 152 MPV 10.4 Gran % 84.6 H Lymph % (Auto) 8.4 L [place] % (Auto) 6.3 H Eos % (Auto) 0.5 L Baso % (Auto) 0.2 Gran # 5.27 Lymph # 0.5 L [place] # 0.4 Eos # 0.0 Baso # 0.01 Sodium 145 Potassium 4.0 Chloride 116 H Carbon Dioxide 22 Anion Gap 11 BUN 54 H Creatinine 1.3 Est GFR ( Amer) 47 Est GFR (Non-Af Amer) 39 POC Glucose (mg/dL) 131 H Random Glucose 120 H Calcium 7.6 L Total Bilirubin 0.3 AST 30 ALT 26 Alkaline Phosphatase 108 Total Protein 5.3 L Albumin 2.2 L Globulin 3.2 Albumin/Globulin Ratio 0.7 L Fingerstick Blood Sugar Results: 116 Review of Systems - EENT Eyes: UNREMARKABLE Ears: UNREMARKABLE Nose/Mouth/Throat: UNREMARKABLE - Cardiovascular Cardiovascular: UNREMARKABLE - Respiratory Respiratory: UNREMARKABLE - Gastrointestinal Gastrointestinal: UNREMARKABLE - Genitourinary Genitourinary: UNREMARKABLE Critical Care Progress Note - Ventilator Checklist Head of Bed 30 Degrees: Yes Daily Sedation Vacation: Yes Daily Assessment of Readiness to Wean: Yes PUD Prophalyxis: Yes DVT Prophylaxis: Yes Oral Care with Chlorhexidine Gluconate {CHG}: Yes - Nutrition Nutrition: Nutrition Category Date Time Status NPO Diet [DIET] Diets 11/27/16 Breakfast Ordered Assessment/Plan - Assessment and Plan (Free Text) Assessment: 81 y/o F w/ Acute Hypoxemic Respiratory Failure s/p Extubation to HFNC to CA. O2 sat> 92% On Empiric abx treatment from chronic LLE chronic wounds . Electrolytes replaced. ARIEL resolved , urine output improved. Dose ABX correctly. DNR/DNI dvt p cc time 45 min
--- NOTE | 2016-11-29 13:20 | CP.PCM.PN ---
<Nadira Manjarrez - Last Filed: 11/29/16 13:16> Subjective - Date & Time of Evaluation Date of Evaluation: 11/29/16 Time of Evaluation: 12:45 - Subjective Subjective: 81 year female pt seen at bedside in CCU today for follow up of left lower extremity cellulitis & left foot ulceration. Pt seen resting comfortably in bed at time of visit. Pt is awake and alert and in NAD, pt is off ventilator today. Pt does complain of some tenderness to the left foot today especially when the foot is moved. Pt denies f/n/v/c/sob/cp at this time. Denies any other problems. Objective - Vital Signs/Intake and Output Vital Signs (last 24 hours): Temp Pulse Resp BP Pulse Ox 98.7 F 68 16 123/48 L 99 11/28/16 23:46 11/29/16 12:00 11/29/16 12:00 11/29/16 11:27 11/29/16 12:00 Intake and Output: 11/29/16 11/29/16 06:59 18:59 Intake Total 100 Output Total 300 Balance -200 - Medications Medications: Current Medications Enoxaparin Sodium (Lovenox) 40 mg SC DAILY [facility] PRN Reason: Protocol Vancomycin HCl (Vancomycin 1gm) 1 gm in 250 mls @ 167 mls/hr IVPB DAILY [facility] PRN Reason: Protocol Last Admin: 11/28/16 10:00 Dose: 167 mls/hr Dexmedetomidine HCl (Precedex 4 Mcg/Ml (100 Ml)) 400 mcg in 100 mls @ 3.481 mls /hr IV .Q24H PRN; Protocol; 0.2 MCG/KG/HR PRN Reason: Agitation Last Admin: 11/28/16 05:42 Dose: 0.4 mcg/kg/hr, 6.963 mls/hr Meropenem 500 mg/ Sodium (Chloride) 100 mls @ 100 mls/hr IVPB Q8 [facility]O PRN Reason: Protocol Stop: 11/29/16 22:59 Insulin Human Regular (Humulin R Low) 0 units SC ACHS [facility] PRN Reason: Protocol Last Admin: 11/29/16 08:13 Dose: Not Given Pantoprazole Sodium (Protonix Inj) 40 mg IVP DAILY [facility] Last Admin: 11/28/16 10:20 Dose: 40 mg - Labs Labs: 11/29/16 05:02 11/29/16 05:02 PT 13.2 Seconds (9.9-11.8) H 11/27/16 11:44 INR 1.22 (0.93-1.08) H 11/27/16 11:44 APTT 34.7 Seconds (23.7-30.8) H 11/28/16 05:40 - Constitutional Appears: Non-toxic, No Acute Distress - Extremities Exam Additional comments: Left lower extremity focused exam: Dressing appears moderately saturated with serous drainage VASC- DP and PT pulses are faintly palpable, capillary refill < 5 sec to digits x 5, mild +1 edema noted to dorsum of the foot DERM- Dorsal foot wound and anterior ankle wound partial thickness ulceration measuring approximately 15 x 14 x .5 cm with mixed fibro-granular base. Mild serous drainage noted to the wound. No tracking. Dior-wound skin is fully epithelialized with some hyper pigmented noted to periwound. No purulence noted. Mild malodor is noted to the left dorsum foot. There is also a superficial ulceration noted to plantar-medial heel, no fluctuance no drainage neg. probe to bone, granular base NEURO- unable to obtain ORTH- tenderness to palpation of ankle wound - Neurological Exam Neurological Exam: Alert, Awake - Psychiatric Exam Psychiatric exam: Normal Affect, Normal Mood Assessment and Plan - Assessment and Plan (Free Text) Assessment: 81 year old female with left dorsum foot ulceration secondary to chronic venous insufficiency Plan: Patient S&E at bedside Plan discussed in detail with attending Dr. Gilbert Chart and labs reviewed, afebrile, WBC trending down (6.2 today) Left foot wound cx (11/28): gram neg jono (prelim) wound cleansed with betadine and sterile water, dressed with xeroform, DSD, ABD and kerlix Will order offloading prevalon boot to be worn to left foot at all times while in bed. c/w IV abx as per ID Podiatry will follow. <Ge Gilbert - Last Filed: 11/29/16 18:17> Objective - Vital Signs/Intake and Output Vital Signs (last 24 hours): Temp Pulse Resp BP Pulse Ox 98.7 F 64 15 140/68 93 L 11/28/16 23:46 11/29/16 16:30 11/29/16 16:30 11/29/16 16:27 11/29/16 16:30 Intake and Output: 11/29/16 11/29/16 06:59 18:59 Intake Total 100 Output Total 300 Balance -200 - Medications Medications: Current Medications Enoxaparin Sodium (Lovenox) 40 mg SC DAILY [facility] PRN Reason: Protocol Last Admin: 11/29/16 14:44 Dose: 40 mg Vancomycin HCl (Vancomycin 1gm) 1 gm in 250 mls @ 167 mls/hr IVPB DAILY [facility] PRN Reason: Protocol Last Admin: 11/29/16 14:43 Dose: 167 mls/hr Dexmedetomidine HCl (Precedex 4 Mcg/Ml (100 Ml)) 400 mcg in 100 mls @ 3.481 mls /hr IV .Q24H PRN; Protocol; 0.2 MCG/KG/HR PRN Reason: Agitation Last Admin: 11/28/16 05:42 Dose: 0.4 mcg/kg/hr, 6.963 mls/hr Meropenem 500 mg/ Sodium (Chloride) 100 mls @ 100 mls/hr IVPB Q8 [facility] PRN Reason: Protocol Insulin Human Regular (Humulin R Low) 0 units SC ACHS [facility] PRN Reason: Protocol Last Admin: 11/29/16 16:36 Dose: Not Given Pantoprazole Sodium (Protonix Inj) 40 mg IVP DAILY [facility] Last Admin: 11/29/16 10:40 Dose: 40 mg - Labs Labs: 11/29/16 05:02 11/29/16 05:02 PT 13.2 Seconds (9.9-11.8) H 11/27/16 11:44 INR 1.22 (0.93-1.08) H 11/27/16 11:44 APTT 34.7 Seconds (23.7-30.8) H 11/28/16 05:40 Attending/Attestation - Attestation I have personally seen and examined this patient.: Yes I have fully participated in the care of the patient.: Yes I have reviewed all pertinent clinical information, including history, physical exam and plan: Yes
[2016-11-29] MEDS ORDERED: Meropenem 500 MG in Sodium Chloride 0.9% 100 ML IVPB SCH (14:00)
[2016-11-29] MEDS: Vancomycin 1gm in NS 250ml 1 GM/250 ML BAG IVPB SCH (14:43)
[2016-11-29] MEDS: Enoxaparin 40 mg Syringe SC SCH (14:44)
--- NOTE | 2016-11-29 15:50 | CP.PCM.PN ---
Subjective - Date & Time of Evaluation Date of Evaluation: 11/29/16 Time of Evaluation: 15:15 - Subjective Subjective: Infectious Disease Follow Up: November 29, 2016 81 yo female well known to me sent from [facility] for Left lower leg cellulitis and chronic ulcerations. [place] [facility] [place] renal function. The patient was found to be hyperkalemic. She was given Kayexalate and vomited. She required intubation at that point and was admitted to the MICU. Extubated yesterday afternoon. On high flow oxygen via NC. Cultures of blood and urine negative to date. Wound culture with gram negative rods. There is a reasonable chance that the left lower leg is the major source of infection. Objective - Vital Signs/Intake and Output Vital Signs (last 24 hours): Temp Pulse Resp BP Pulse Ox 98.7 F 72 18 136/61 93 L 11/28/16 23:46 11/29/16 14:30 11/29/16 14:30 11/29/16 14:27 11/29/16 14:30 Intake and Output: 11/29/16 11/29/16 06:59 18:59 Intake Total 100 Output Total 300 Balance -200 - Medications Medications: Current Medications Enoxaparin Sodium (Lovenox) 40 mg SC DAILY [facility] PRN Reason: Protocol Last Admin: 11/29/16 14:44 Dose: 40 mg Vancomycin HCl (Vancomycin 1gm) 1 gm in 250 mls @ 167 mls/hr IVPB DAILY [facility] PRN Reason: Protocol Last Admin: 11/29/16 14:43 Dose: 167 mls/hr Dexmedetomidine HCl (Precedex 4 Mcg/Ml (100 Ml)) 400 mcg in 100 mls @ 3.481 mls /hr IV .Q24H PRN; Protocol; 0.2 MCG/KG/HR PRN Reason: Agitation Last Admin: 11/28/16 05:42 Dose: 0.4 mcg/kg/hr, 6.963 mls/hr Meropenem 500 mg/ Sodium (Chloride) 100 mls @ 100 mls/hr IVPB Q8 [facility] PRN Reason: Protocol Stop: 11/29/16 22:59 Last Admin: 11/29/16 14:39 Dose: 100 mls/hr Insulin Human Regular (Humulin R Low) 0 units SC ACHS [facility] PRN Reason: Protocol Last Admin: 11/29/16 11:30 Dose: Not Given Pantoprazole Sodium (Protonix Inj) 40 mg IVP DAILY [facility] Last Admin: 11/29/16 10:40 Dose: 40 mg - Labs Labs: 11/29/16 05:02 11/29/16 05:02 PT 13.2 Seconds (9.9-11.8) H 11/27/16 11:44 INR 1.22 (0.93-1.08) H 11/27/16 11:44 APTT 34.7 Seconds (23.7-30.8) H 11/28/16 05:40 - Constitutional Appears: Non-toxic, No Acute Distress, Chronically Ill - Head Exam Head Exam: ATRAUMATIC, NORMOCEPHALIC - Eye Exam Eye Exam: EOMI, PERRL Pupil Exam: NORMAL ACCOMODATION, PERRL - ENT Exam ENT Exam: Mucous Membranes Moist, Normal External Ear Exam, TM's Normal Bilaterally - Neck Exam Neck Exam: Full ROM, Normal Inspection - Respiratory Exam Respiratory Exam: Decreased Breath Sounds, NORMAL BREATHING PATTERN. absent: Rales, Rhonchi, Wheezes - Cardiovascular Exam Cardiovascular Exam: REGULAR RHYTHM, RRR, +S1, +S2 - GI/Abdominal Exam GI & Abdominal Exam: Soft, Normal Bowel Sounds. absent: Distended, Tenderness - Extremities Exam Additional comments: multiple non healing ulcer of the left leg with odor as well as swelling and chronic skin and tissue changes to this leg. - Neurological Exam Neurological Exam: Alert, Awake, CN II-XII Intact, Oriented x3 - Psychiatric Exam Psychiatric exam: Anxious, Depressed - Skin Additional comments: as per extremity exam. Assessment and Plan - Assessment and Plan (Free Text) Assessment: 81 yo female with worsening renal function and [place] [facility] [place] The patient was found to be hyperkalemia and vomiting in the ER. She required intubation and is not in the MICU. The patient is awake. She is on Precedex currently. She still remains hypotensive. Started on Aztreonam and Vancomycin IV for antibiotic coverage but if no improvement, I would use Meropenem despite PCN allergy. Especially since the patient was intubated and ventilated. Ibrahim cultures sent. Patient did not improve by much and Meropenem was started yesterday. Vancomycin IV continued. Extubated yesterday afternoon. On high flow oxygen at 50%. Supportive care. Case discussed with Dr. Chavira today. Patient is critically ill. Question of whether the patient should have amputation of the left leg (a chronic ongoing problem with the left leg). The left leg is the likely source of infection. Thank you for allowing me to participate in the care of the patient, we will follow with you.
--- NOTE | 2016-11-29 18:37 | CP.PCM.PN ---
Addendum entered and electronically signed by Wei Jacobsen DO 19:48: additional for plan: Pt's lle is source of infxn. May need amputation. Original Note: <Wei Jacobsen - Last Filed: 11/29/16 19:36> Subjective - Date & Time of Evaluation Date of Evaluation: 11/29/16 Time of Evaluation: 08:00 - Subjective Subjective: Pt s/e at bedside. Pt is extubated, no longer on precedex. She no longer wishes to be DNI/DNR, d/w nursing staff the process to rescind the patient's status, who informed me that it was taken care of. Pt herself is feeling well, but complains of mild tenderness in her wound today. Pt denies fevers, chills, nausea, vomiting, diarrhea, cp, sob. She further denies any los or worsening of her infection. Infection does look better upon inspection; her cultures show gram negative rods, ID has her on Vanc and Meropenem. Blood cultures are negative for any growth. Patient is doing well on nasal cannula, no further complaints., Objective - Vital Signs/Intake and Output Vital Signs (last 24 hours): Temp Pulse Resp BP Pulse Ox 98.7 F 64 15 140/68 93 L 11/28/16 23:46 11/29/16 16:30 11/29/16 16:30 11/29/16 16:27 11/29/16 16:30 Intake and Output: 11/29/16 11/29/16 06:59 18:59 Intake Total 100 Output Total 300 Balance -200 - Medications Medications: Current Medications Enoxaparin Sodium (Lovenox) 40 mg SC DAILY [facility] PRN Reason: Protocol Last Admin: 11/29/16 14:44 Dose: 40 mg Vancomycin HCl (Vancomycin 1gm) 1 gm in 250 mls @ 167 mls/hr IVPB DAILY [facility] PRN Reason: Protocol Last Admin: 11/29/16 14:43 Dose: 167 mls/hr Dexmedetomidine HCl (Precedex 4 Mcg/Ml (100 Ml)) 400 mcg in 100 mls @ 3.481 mls /hr IV .Q24H PRN; Protocol; 0.2 MCG/KG/HR PRN Reason: Agitation Last Admin: 11/28/16 05:42 Dose: 0.4 mcg/kg/hr, 6.963 mls/hr Meropenem 500 mg/ Sodium (Chloride) 100 mls @ 100 mls/hr IVPB Q8 [facility] PRN Reason: Protocol Insulin Human Regular (Humulin R Low) 0 units SC ACHS KEO PRN Reason: Protocol Last Admin: 11/29/16 16:36 Dose: Not Given Pantoprazole Sodium (Protonix Inj) 40 mg IVP DAILY [facility] Last Admin: 11/29/16 10:40 Dose: 40 mg - Labs Labs: 11/29/16 05:02 11/29/16 05:02 PT 13.2 Seconds (9.9-11.8) H 11/27/16 11:44 INR 1.22 (0.93-1.08) H 11/27/16 11:44 APTT 34.7 Seconds (23.7-30.8) H 11/28/16 05:40 - Constitutional Appears: No Acute Distress - Head Exam Head Exam: ATRAUMATIC, NORMAL INSPECTION, NORMOCEPHALIC - Eye Exam Eye Exam: EOMI, Normal appearance, PERRL Pupil Exam: NORMAL ACCOMODATION, PERRL - ENT Exam ENT Exam: Mucous Membranes Moist, Normal Exam - Neck Exam Neck Exam: Full ROM, Normal Inspection - Respiratory Exam Respiratory Exam: Clear to Ausculation Bilateral, NORMAL BREATHING PATTERN - Cardiovascular Exam Cardiovascular Exam: REGULAR RHYTHM - GI/Abdominal Exam GI & Abdominal Exam: Soft, Normal Bowel Sounds - Rectal Exam Rectal Exam: Deferred - Extremities Exam Additional comments: cellulitis left ankle wound, left foot red and +2 edema, foul smelling d/c noted to left ankle wound - Neurological Exam Neurological Exam: Alert, Awake, CN II-XII Intact, Normal Gait, Oriented x3 Assessment and Plan - Assessment and Plan (Free Text) Assessment: Assessment: Ms. Lorenzo is an 81 y/o female with a PMHx specifically significant for DM, who presents to the ER from [facility] with a complaint of L LE cellulitis. Plan: 1.) Acute Respiratory Distress - most likely 2/2 Pneumonitis d/t Aspiration - Extubated, Resolved - Patient's ox sat was 100 today - Patient admitted to ICU - Pt doing well on NC 2.) Left Lower Extremity Cellulitis - XR Left Foot: fusion changes of distal tibia/fibula; diffuse demineralization ; No cortical destruction, but may need MRI - Wound Culture: Gram negative rods. - RPT CBC, BMP - ID C/S (Dr. Alvares): Start meropenem. Followed recs - Surg C/S: No surgical intervention at this time - Podiatry C/S (Dr. Gilbert): Prevalon boot to be worn at all times while in bed. Podiatry will order. - Abx: Vanc, Meropenem 3.) Pre-renal ARIEL, likely 2/2 Dehydration - resolving, urine output improved - BUN 54, CR 1.3 today; Admission - BUN 71, baseline 20s; Cr 1.4, baseline .7 - Nephro C/S: No acute need for renal replacement therapy at this time. Maintain hemodynamics stable. can continue with normal saline @ 75-100 ml/hr. Monitor Input/Output, daily weights and renal function with basic metabolic panel. Check renal sonogram. Dose meds/antibiotics for reduced GFR. Avoid fleets enema/magnesium based laxatives. Avoid nephrotoxins/NSAIDs/ iodinated contrast (unless needed emergently). Glycemic control - Renal sonogram: mild atrophy; no hydronephrosis. Renal lipomatosis 4.) Hyperkalemia, likely 2/2 #3: resolved - ED at 5.7; today, 4.0 - Insulin, Kayexelate, Albuterol given - Continue to monitor 5.) Leukocytosis without fever, likely 2/2 Cellulitis: resolved - Abx: Meropenem and Vanc - Procalcitonin ordered: elevated - Blood, urine and wound cultures ordered - ID, Dr. Alvares consulted 6.) Hx/O HTN - Hold metoprolol for now, patient NPO 7.) Hx/O DM - Sliding scale insulin low dose; hold metformin 8.) Hx/O A-Fib - Hold eliquis for now 9.) DVT/GI PPHXS - IV Protonix/Heparin <Rosalino MORAES,[facility] - Last Filed: 11/30/16 12:52> Objective - Vital Signs/Intake and Output Vital Signs (last 24 hours): Temp Pulse Resp BP Pulse Ox 98.1 F 60 20 132/52 L 99 11/30/16 08:19 11/30/16 11:14 11/30/16 08:19 11/30/16 11:14 11/30/16 08:19 Intake and Output: 11/30/16 11/30/16 06:59 18:59 Intake Total 600 Output Total 520 Balance 80 - Medications Medications: Current Medications Enoxaparin Sodium (Lovenox) 40 mg SC DAILY [facility] PRN Reason: Protocol Last Admin: 11/30/16 10:57 Dose: 40 mg Vancomycin HCl (Vancomycin 1gm) 1 gm in 250 mls @ 167 mls/hr IVPB DAILY [facility] PRN Reason: Protocol Last Admin: 11/30/16 10:57 Dose: 167 mls/hr Dexmedetomidine HCl (Precedex 4 Mcg/Ml (100 Ml)) 400 mcg in 100 mls @ 3.481 mls /hr IV .Q24H PRN; Protocol; 0.2 MCG/KG/HR PRN Reason: Agitation Last Admin: 11/28/16 05:42 Dose: 0.4 mcg/kg/hr, 6.963 mls/hr Meropenem 500 mg/ Sodium (Chloride) 100 mls @ 100 mls/hr IVPB Q8 [facility] PRN Reason: Protocol Last Admin: 11/30/16 05:14 Dose: 100 mls/hr Insulin Human Regular (Humulin R Low) 0 units SC ACHS [facility] PRN Reason: Protocol Last Admin: 11/30/16 12:30 Dose: Not Given Metoprolol Tartrate (Lopressor) 25 mg PO BID [facility] Last Admin: 11/30/16 11:14 Dose: Not Given Pantoprazole Sodium (Protonix Inj) 40 mg IVP DAILY [facility] Last Admin: 11/30/16 10:57 Dose: 40 mg - Labs Labs: 11/30/16 08:10 11/30/16 08:10 PT 13.2 Seconds (9.9-11.8) H 11/27/16 11:44 INR 1.22 (0.93-1.08) H 11/27/16 11:44 APTT 34.7 Seconds (23.7-30.8) H 11/28/16 05:40 Attending/Attestation - Attestation I have personally seen and examined this patient.: Yes I have fully participated in the care of the patient.: Yes I have reviewed all pertinent clinical information, including history, physical exam and plan: Yes Notes (Text): 11/30/16 12:47 Patient was seen and examined with director medical. Agreed with resident assessment and plan. 81 y/o F with hx of diabetes Mellitus, A fib, hypothyroidism, chronic left swelling and cellulitis, COPD, initially presented with left leg cellulitis. She was given kayexylate for elevated potassium. she also got IV vancomycin. but she became hypoxic and possibly aspirated. she was intubated for respiratory failure. Patient was extubated yesterday, on nasal canula, Patient wound cultures are growing gram negative jono , she is on IV Vancomycin and Meropenem.Blood cultures are negative for any growth.Patient is refusing surgery, the need of surgery was discussed in detail. Management plan was discussed in detail with patient Education was provided. 11/30/16 12:50
[2016-11-29] MEDS: Meropenem 500 MG in Sodium Chloride 0.9% 100 ML IVPB SCH (21:08)
[2016-11-30] MEDS: Meropenem 500 MG in Sodium Chloride 0.9% 100 ML IVPB SCH ×3 (05:14→22:05)
[2016-11-30 08:17] LABS: EOS # 0.1 (0.0-0.7); EOS % 2.2 % (1.5-5.0); GRAN # 5.22 (1.4-6.5); GRAN % 80.9 % (50.0-68.0); HEMOGLOBIN 8.7 gm/dL (12.0-16.0); LYMPH # 0.7 (1.2-3.4); LYMPH % 10.4 % (22.0-35.0); MEAN CELL VOLUME 89.2 fL (80.0-105.0); MEAN CORPUSCULAR HEMOGLOBIN 26.8 pg (25.0-35.0); MEAN PLATELET VOLUME 10.6 fl (7.0-11.0); MONO # 0.4 (0.1-0.6); MONO % 6.5 % (1.0-6.0); PLATELET COUNT 175 10^3/uL (120.0-450.0); RBC 3.25 10^6/uL (3.5-6.1); RED CELL DISTRIBUTION WIDTH 16.3 % (11.5-14.5); WHITE BLOOD COUNT 6.5 10^3/ul (4.5-11.0)
[2016-11-30] MEDS: Insulin Reg-LOW-Coverage SC SCH ×4 (08:25→22:04)
[2016-11-30 08:28] LABS: ALB/GLOB RATIO 0.7 (1.1-1.8); ALBUMIN 2.3 g/dL (3.0-4.8); ALT/SGPT 26 U/L (7-56); AST/SGOT 25 U/L (15-39); BLOOD UREA NITROGEN 35 mg/dL (7-21); CALCIUM 7.9 mg/dL (8.4-10.5); GFR AFRICAN-AMERICAN > 60; GFR NON-AFRICAN AMERICAN 60
[2016-11-30] MEDS: Enoxaparin 40 mg Syringe SC SCH (10:57)
[2016-11-30] MEDS: Vancomycin 1gm in NS 250ml 1 GM/250 ML BAG IVPB SCH (10:57)
--- NOTE | 2016-11-30 10:58 | CP.PCM.PN ---
<Wei Jacobsen Prashanth - Last Filed: 11/30/16 11:05> Subjective - Date & Time of Evaluation Date of Evaluation: 11/30/16 Time of Evaluation: 08:00 - Subjective Subjective: Pt s/e at bedside. L LE is bandaged, wound is still purulent and malodorous. Pt denies any complaints, but does not want to see surgery. Objective - Vital Signs/Intake and Output Vital Signs (last 24 hours): Temp Pulse Resp BP Pulse Ox 98.1 F 62 20 159/60 H 99 11/30/16 08:19 11/30/16 08:19 11/30/16 08:19 11/30/16 08:19 11/30/16 08:19 Intake and Output: 11/30/16 11/30/16 06:59 18:59 Intake Total 600 Output Total 520 Balance 80 - Medications Medications: Current Medications Enoxaparin Sodium (Lovenox) 40 mg SC DAILY [facility] PRN Reason: Protocol Last Admin: 11/29/16 14:44 Dose: 40 mg Vancomycin HCl (Vancomycin 1gm) 1 gm in 250 mls @ 167 mls/hr IVPB DAILY [facility] PRN Reason: Protocol Last Admin: 11/29/16 14:43 Dose: 167 mls/hr Dexmedetomidine HCl (Precedex 4 Mcg/Ml (100 Ml)) 400 mcg in 100 mls @ 3.481 mls /hr IV .Q24H PRN; Protocol; 0.2 MCG/KG/HR PRN Reason: Agitation Last Admin: 11/28/16 05:42 Dose: 0.4 mcg/kg/hr, 6.963 mls/hr Meropenem 500 mg/ Sodium (Chloride) 100 mls @ 100 mls/hr IVPB Q8 [facility] PRN Reason: Protocol Last Admin: 11/30/16 05:14 Dose: 100 mls/hr Insulin Human Regular (Humulin R Low) 0 units SC ACHS [facility] PRN Reason: Protocol Last Admin: 11/30/16 08:25 Dose: Not Given Metoprolol Tartrate (Lopressor) 25 mg PO BID KEO Pantoprazole Sodium (Protonix Inj) 40 mg IVP DAILY [facility] Last Admin: 11/29/16 10:40 Dose: 40 mg - Labs Labs: 11/30/16 08:10 11/30/16 08:10 PT 13.2 Seconds (9.9-11.8) H 11/27/16 11:44 INR 1.22 (0.93-1.08) H 11/27/16 11:44 APTT 34.7 Seconds (23.7-30.8) H 11/28/16 05:40 - Head Exam Head Exam: ATRAUMATIC, NORMAL INSPECTION, NORMOCEPHALIC - Eye Exam Eye Exam: EOMI, Normal appearance, PERRL Pupil Exam: NORMAL ACCOMODATION, PERRL - ENT Exam ENT Exam: Mucous Membranes Moist, Normal Exam - Neck Exam Neck Exam: Normal Inspection - Respiratory Exam Respiratory Exam: Clear to Ausculation Bilateral, NORMAL BREATHING PATTERN - Cardiovascular Exam Cardiovascular Exam: REGULAR RHYTHM - GI/Abdominal Exam GI & Abdominal Exam: Soft, Normal Bowel Sounds - Extremities Exam Additional comments: cellulitis left ankle wound, left foot red and +2 edema, foul smelling d/c noted to left ankle wound - Back Exam Back Exam: NORMAL INSPECTION - Neurological Exam Neurological Exam: Alert, Awake, CN II-XII Intact, Normal Gait, Oriented x3 - Psychiatric Exam Psychiatric exam: Normal Affect, Normal Mood Assessment and Plan - Assessment and Plan (Free Text) Assessment: 1.) Acute Respiratory Distress - most likely 2/2 Pneumonitis d/t Aspiration - Extubated, Resolved - Patient's ox sat was 100 today - Patient d/c from ICU - Pt doing well on NC 2.) Left Lower Extremity Cellulitis - XR Left Foot: fusion changes of distal tibia/fibula; diffuse demineralization ; No cortical destruction, but may need MRI - Wound Culture: Gram negative rods. - RPT CBC, BMP - ID C/S (Dr. Alvares): Start meropenem. Followed recs; no change - Surg C/S: No surgical intervention at this time - Podiatry C/S (Dr. Gilbert): Prevalon boot to be worn at all times while in bed. Podiatry will order. - Pt refusing surgery - Abx: Vanc, Meropenem - PICC Line Friday - Potential d/c Friday 3.) Pre-renal ARIEL, likely 2/2 Dehydration - resolving, urine output improved - BUN 54, CR 1.3 today; Admission - BUN 71, baseline 20s; Cr 1.4, baseline .7 - Nephro C/S: No acute need for renal replacement therapy at this time. Maintain hemodynamics stable. can continue with normal saline @ 75-100 ml/hr. Monitor Input/Output, daily weights and renal function with basic metabolic panel. Check renal sonogram. Dose meds/antibiotics for reduced GFR. Avoid fleets enema/magnesium based laxatives. Avoid nephrotoxins/NSAIDs/ iodinated contrast (unless needed emergently). Glycemic control - Renal sonogram: mild atrophy; no hydronephrosis. Renal lipomatosis 4.) Hyperkalemia, likely 2/2 #3: resolved - ED at 5.7; today, 4.0 - Insulin, Kayexelate, Albuterol given - Continue to monitor 5.) Leukocytosis without fever, likely 2/2 Cellulitis: resolved - Abx: Meropenem and Vanc - Procalcitonin ordered: elevated - Blood, urine and wound cultures ordered - ID, Dr. Alvares consulted 6.) Hx/O HTN - Hold metoprolol for now, patient NPO 7.) Hx/O DM - Sliding scale insulin low dose; hold metformin 8.) Hx/O A-Fib - Hold eliquis for now 9.) DVT/GI PPHXS - IV Protonix/Heparin <Rosalino MORAES,[facility] - Last Filed: 11/30/16 12:55> Objective - Vital Signs/Intake and Output Vital Signs (last 24 hours): Temp Pulse Resp BP Pulse Ox 98.1 F 60 20 132/52 L 99 11/30/16 08:19 11/30/16 11:14 11/30/16 08:19 11/30/16 11:14 11/30/16 08:19 Intake and Output: 11/30/16 11/30/16 06:59 18:59 Intake Total 600 Output Total 520 Balance 80 - Medications Medications: Current Medications Enoxaparin Sodium (Lovenox) 40 mg SC DAILY [facility] PRN Reason: Protocol Last Admin: 11/30/16 10:57 Dose: 40 mg Vancomycin HCl (Vancomycin 1gm) 1 gm in 250 mls @ 167 mls/hr IVPB DAILY [facility] PRN Reason: Protocol Last Admin: 11/30/16 10:57 Dose: 167 mls/hr Dexmedetomidine HCl (Precedex 4 Mcg/Ml (100 Ml)) 400 mcg in 100 mls @ 3.481 mls /hr IV .Q24H PRN; Protocol; 0.2 MCG/KG/HR PRN Reason: Agitation Last Admin: 11/28/16 05:42 Dose: 0.4 mcg/kg/hr, 6.963 mls/hr Meropenem 500 mg/ Sodium (Chloride) 100 mls @ 100 mls/hr IVPB Q8 [facility] PRN Reason: Protocol Last Admin: 11/30/16 05:14 Dose: 100 mls/hr Insulin Human Regular (Humulin R Low) 0 units SC ACHS [facility]O PRN Reason: Protocol Last Admin: 11/30/16 12:30 Dose: Not Given Metoprolol Tartrate (Lopressor) 25 mg PO BID [facility] Last Admin: 11/30/16 11:14 Dose: Not Given Pantoprazole Sodium (Protonix Inj) 40 mg IVP DAILY [facility] Last Admin: 11/30/16 10:57 Dose: 40 mg - Labs Labs: 11/30/16 08:10 11/30/16 08:10 PT 13.2 Seconds (9.9-11.8) H 11/27/16 11:44 INR 1.22 (0.93-1.08) H 11/27/16 11:44 APTT 34.7 Seconds (23.7-30.8) H 11/28/16 05:40 Attending/Attestation - Attestation I have personally seen and examined this patient.: Yes I have fully participated in the care of the patient.: Yes I have reviewed all pertinent clinical information, including history, physical exam and plan: Yes Notes (Text): 11/30/16 12:53 Patient was seen and examined with medical technologist hematology. Agreed with resident assessment and plan. 81 y/o F with hx of diabetes Mellitus, A fib, hypothyroidism, chronic left swelling and cellulitis, COPD, initially presented with left leg cellulitis. she was intubated for respiratory failure due to aspiration. Patient was extubated two days back she is , on nasal canula, Patient wound cultures are growing gram negative jono , she is on IV Vancomycin and Meropenem.Blood cultures are negative for any growth.Patient is refusing surgery , the need of surgery was discussed in detail.If patient will not be agrreable for surgery and blood cultures remain negative, we will get PICC line .She will need 4-6 weeks of I antibiotics. Prognosis is guarded. Management plan was discussed in detail with patient Education was provided.
--- NOTE | 2016-11-30 11:41 | CP.PCM.PN ---
<Uli Jeffries - Last Filed: 11/30/16 11:37> Subjective - Date & Time of Evaluation Date of Evaluation: 11/30/16 Time of Evaluation: 09:38 - Subjective Subjective: 81 year female pt seen at bedside with attending Dr. Gilbert for left lower extremity cellulitis & left foot ulceration. Pt is AAOx3 and is in NAD. Pt seen resting comfortably in bed at time of visit. Pt does complain of some tenderness to the left foot, specially during dressing changes. Pt denies of any recent F/N/V/C/SOB. Pt denies any other pedal problems. Objective - Vital Signs/Intake and Output Vital Signs (last 24 hours): Temp Pulse Resp BP Pulse Ox 98.1 F 60 20 132/52 L 99 11/30/16 08:19 11/30/16 11:14 11/30/16 08:19 11/30/16 11:14 11/30/16 08:19 Intake and Output: 11/30/16 11/30/16 06:59 18:59 Intake Total 600 Output Total 520 Balance 80 - Medications Medications: Current Medications Enoxaparin Sodium (Lovenox) 40 mg SC DAILY [facility] PRN Reason: Protocol Last Admin: 11/30/16 10:57 Dose: 40 mg Vancomycin HCl (Vancomycin 1gm) 1 gm in 250 mls @ 167 mls/hr IVPB DAILY [facility] PRN Reason: Protocol Last Admin: 11/30/16 10:57 Dose: 167 mls/hr Dexmedetomidine HCl (Precedex 4 Mcg/Ml (100 Ml)) 400 mcg in 100 mls @ 3.481 mls /hr IV .Q24H PRN; Protocol; 0.2 MCG/KG/HR PRN Reason: Agitation Last Admin: 11/28/16 05:42 Dose: 0.4 mcg/kg/hr, 6.963 mls/hr Meropenem 500 mg/ Sodium (Chloride) 100 mls @ 100 mls/hr IVPB Q8 [facility] PRN Reason: Protocol Last Admin: 11/30/16 05:14 Dose: 100 mls/hr Insulin Human Regular (Humulin R Low) 0 units SC ACHS [facility] PRN Reason: Protocol Last Admin: 11/30/16 08:25 Dose: Not Given Metoprolol Tartrate (Lopressor) 25 mg PO BID [facility] Last Admin: 11/30/16 11:14 Dose: Not Given Pantoprazole Sodium (Protonix Inj) 40 mg IVP DAILY [facility] Last Admin: 11/30/16 10:57 Dose: 40 mg - Labs Labs: 11/30/16 08:10 11/30/16 08:10 PT 13.2 Seconds (9.9-11.8) H 11/27/16 11:44 INR 1.22 (0.93-1.08) H 11/27/16 11:44 APTT 34.7 Seconds (23.7-30.8) H 11/28/16 05:40 - Constitutional Appears: Well, Non-toxic, No Acute Distress - Extremities Exam Additional comments: Left lower extremity focused exam: VASC- DP and PT pulses are faintly palpable, capillary refill < 5 sec to digits x 5, +1 pitting edema noted to dorsum of the foot DERM- Dorsal foot wound and anterior ankle wound partial thickness ulceration measuring approximately 15 x 14 x .5 cm with mixed fibro-granular base. Mild serous drainage noted to the wound. No tracking. Dior-wound skin is fully epithelialized with some hyper pigmented noted to periwound. No purulence noted. mild malodor present during dressing change. There is also a superficial ulceration noted to plantar-medial heel, no fluctuance no drainage neg. probe to bone, granular base NEURO- unable to obtain ORTH- tenderness to palpation of ankle wound - Neurological Exam Neurological Exam: Alert, Awake, Oriented x3 - Psychiatric Exam Psychiatric exam: Normal Affect, Normal Mood Assessment and Plan - Assessment and Plan (Free Text) Assessment: 81 y/o female seen at bedside with left dorsum foot ulceration secondary to chronic venous insufficiency Plan: Patient seen and evaluated with attending Dr. Gilbert Chart and labs reviewed, afebrile, WBC @ 6.5 today Left foot wound cx (11/28): gram neg jono (prelim) wound cleansed with betadine and sterile water, dressed with xeroform, DSD, ABD and kerlix Ordered offloading prevalon boot to be worn to left foot at all times while in bed. - Pending Pt to remain on IV abx as per ID Podiatry will follow while pt is in house <Ge Gilbert - Last Filed: 12/02/16 08:09> Objective - Vital Signs/Intake and Output Vital Signs (last 24 hours): Temp Pulse Resp BP Pulse Ox 98.7 F 65 20 132/72 97 12/01/16 16:30 12/01/16 17:14 12/01/16 16:30 12/01/16 17:14 12/01/16 16:30 Intake and Output: 12/02/16 12/02/16 06:59 18:59 Intake Total 420 Balance 420 - Medications Medications: Current Medications Albuterol/Ipratropium (Duoneb 3 Mg/0.5 Mg (3 Ml) Ud) 3 ml IH [id number] [facility] Last Admin: 12/02/16 07:22 Dose: 3 ml Allopurinol (Zyloprim) 300 mg PO DAILY [facility] Enoxaparin Sodium (Lovenox) 40 mg SC DAILY [facility] PRN Reason: Protocol Last Admin: 12/01/16 09:30 Dose: 40 mg Guaifenesin (Mucinex La) 600 mg PO BID PRN PRN Reason: Cough Last Admin: 12/01/16 10:35 Dose: 600 mg Guaifenesin (Mucinex La) 600 mg PO BID [facility] Last Admin: 12/01/16 17:13 Dose: 600 mg Vancomycin HCl (Vancomycin 1gm) 1 gm in 250 mls @ 167 mls/hr IVPB DAILY [facility] PRN Reason: Protocol Last Admin: 12/01/16 09:34 Dose: 167 mls/hr Dexmedetomidine HCl (Precedex 4 Mcg/Ml (100 Ml)) 400 mcg in 100 mls @ 3.481 mls /hr IV .Q24H PRN; Protocol; 0.2 MCG/KG/HR PRN Reason: Agitation Last Admin: 11/28/16 05:42 Dose: 0.4 mcg/kg/hr, 6.963 mls/hr Meropenem 500 mg/ Sodium (Chloride) 100 mls @ 100 mls/hr IVPB Q8 [facility] PRN Reason: Protocol Last Admin: 12/02/16 05:11 Dose: 100 mls/hr Insulin Human Regular (Humulin R Low) 0 units SC ACHS [facility] PRN Reason: Protocol Last Admin: 12/01/16 21:39 Dose: Not Given Metoprolol Tartrate (Lopressor) 25 mg PO BID [facility] Last Admin: 12/01/16 17:14 Dose: 25 mg Pantoprazole Sodium (Protonix Ec Tab) 40 mg PO 0600 [facility] Last Admin: 12/02/16 06:12 Dose: 40 mg - Labs Labs: 12/02/16 06:45 12/02/16 06:45 PT 13.2 Seconds (9.9-11.8) H 11/27/16 11:44 INR 1.22 (0.93-1.08) H 11/27/16 11:44 APTT 34.7 Seconds (23.7-30.8) H 11/28/16 05:40 Attending/Attestation - Attestation I have personally seen and examined this patient.: Yes I have fully participated in the care of the patient.: Yes I have reviewed all pertinent clinical information, including history, physical exam and plan: Yes
--- NOTE | 2016-11-30 17:04 | CP.PCM.PN ---
Subjective - Date & Time of Evaluation Date of Evaluation: 11/30/16 Time of Evaluation: 16:15 - Subjective Subjective: Infectious Disease Follow Up: November 30, 2016 81 yo female well known to me sent from [facility] for Left lower leg cellulitis and chronic ulcerations. She was sent to [facility] for evaluation of worsening renal function. The patient was found to be hyperkalemic. She was given Kayexalate and vomited. She required intubation at that point and was admitted to the MICU. Extubated yesterday afternoon. On high flow oxygen via NC. Cultures of blood and urine negative to date. Wound culture with gram negative rods. Serretia is one of the organisms identified at this time. There is a significant chance that the left lower leg is the major source of infection. Objective - Vital Signs/Intake and Output Vital Signs (last 24 hours): Temp Pulse Resp BP Pulse Ox 98.1 F 60 20 132/52 L 99 11/30/16 08:19 11/30/16 11:14 11/30/16 08:19 11/30/16 11:14 11/30/16 08:19 Intake and Output: 11/30/16 11/30/16 06:59 18:59 Intake Total 600 480 Output Total 520 Balance 80 480 - Medications Medications: Current Medications Enoxaparin Sodium (Lovenox) 40 mg SC DAILY [facility]O PRN Reason: Protocol Last Admin: 11/30/16 10:57 Dose: 40 mg Vancomycin HCl (Vancomycin 1gm) 1 gm in 250 mls @ 167 mls/hr IVPB DAILY [facility] PRN Reason: Protocol Last Admin: 11/30/16 10:57 Dose: 167 mls/hr Dexmedetomidine HCl (Precedex 4 Mcg/Ml (100 Ml)) 400 mcg in 100 mls @ 3.481 mls /hr IV .Q24H PRN; Protocol; 0.2 MCG/KG/HR PRN Reason: Agitation Last Admin: 11/28/16 05:42 Dose: 0.4 mcg/kg/hr, 6.963 mls/hr Meropenem 500 mg/ Sodium (Chloride) 100 mls @ 100 mls/hr IVPB Q8 [facility] PRN Reason: Protocol Last Admin: 11/30/16 14:37 Dose: 100 mls/hr Insulin Human Regular (Humulin R Low) 0 units SC ACHS [facility] PRN Reason: Protocol Last Admin: 11/30/16 16:51 Dose: Not Given Metoprolol Tartrate (Lopressor) 25 mg PO BID [facility] Last Admin: 11/30/16 11:14 Dose: Not Given Pantoprazole Sodium (Protonix Inj) 40 mg IVP DAILY [facility] Last Admin: 11/30/16 10:57 Dose: 40 mg - Labs Labs: 11/30/16 08:10 11/30/16 08:10 PT 13.2 Seconds (9.9-11.8) H 11/27/16 11:44 INR 1.22 (0.93-1.08) H 11/27/16 11:44 APTT 34.7 Seconds (23.7-30.8) H 11/28/16 05:40 - Constitutional Appears: Non-toxic, No Acute Distress, Chronically Ill - Head Exam Head Exam: ATRAUMATIC, NORMOCEPHALIC - Eye Exam Eye Exam: EOMI, PERRL Pupil Exam: NORMAL ACCOMODATION, PERRL - ENT Exam ENT Exam: Mucous Membranes Moist, Normal External Ear Exam, TM's Normal Bilaterally - Neck Exam Neck Exam: Full ROM, Normal Inspection - Respiratory Exam Respiratory Exam: Clear to Ausculation Bilateral, NORMAL BREATHING PATTERN. absent: Rales, Rhonchi, Wheezes - Cardiovascular Exam Cardiovascular Exam: REGULAR RHYTHM, RRR, +S1, +S2 - GI/Abdominal Exam GI & Abdominal Exam: Soft, Normal Bowel Sounds. absent: Distended, Tenderness - Extremities Exam Additional comments: multiple non healing ulcer of the left leg with odor as well as swelling and chronic skin and tissue changes to this leg. - Neurological Exam Neurological Exam: Alert, Awake, CN II-XII Intact, Oriented x3 - Psychiatric Exam Psychiatric exam: Normal Affect, Normal Mood - Skin Additional comments: as per extremity exam. Assessment and Plan - Assessment and Plan (Free Text) Assessment: 81 yo female with worsening renal function and sent to [facility] for evaluation. The patient was found to be hyperkalemia and vomiting in the ER. She required intubation and is not in the MICU. The patient is awake. She is on Precedex currently. She still remains hypotensive. Started on Aztreonam and Vancomycin IV for antibiotic coverage but if no improvement, I would use Meropenem despite PCN allergy. Especially since the patient was intubated and ventilated. Ibrahim cultures sent. Patient did not improve by much and Meropenem was started several days ago and continued. Vancomycin IV continued. Extubated yesterday afternoon. On high flow oxygen at 50%. Supportive care. Patient remains ill. Question of whether the patient should have amputation of the left leg (a chronic ongoing problem with the left leg). The left leg is the likely source of infection. Unfortunately, the patient is not willing to accept amputation. The patient has Serratia in the wound cultures that is highly resistant to antibiotics. Options are extremely limited. Thank you for allowing me to participate in the care of the patient, we will follow with you.
[2016-12-01] MEDS: Meropenem 500 MG in Sodium Chloride 0.9% 100 ML IVPB SCH ×3 (05:21→21:40)
[2016-12-01] MEDS ORDERED: guaiFENesin 600 mg ER Tab PO PRN (06:45)
[2016-12-01 08:09] LABS: BASO # 0.01 K/mm3 (0.0-2.0); BASO % 0.1 % (0.0-3.0); EOS # 0.2 (0.0-0.7); EOS % 3.2 % (1.5-5.0); GRAN % 80.4 % (50.0-68.0); HEMOGLOBIN 8.9 gm/dL (12.0-16.0); LYMPH # 0.7 (1.2-3.4); LYMPH % 9.6 % (22.0-35.0); MEAN CELL VOLUME 88.9 fL (80.0-105.0); MEAN CORPUSCULAR HEMOGLOBIN 26.7 pg (25.0-35.0); MEAN CORPUSCULAR HGB CONC 30.1 g/dl (31.0-37.0); MEAN PLATELET VOLUME 10.4 fl (7.0-11.0); MONO # 0.5 (0.1-0.6); MONO % 6.7 % (1.0-6.0); PLATELET COUNT 184 10^3/uL (120.0-450.0); RBC 3.33 10^6/uL (3.5-6.1); RED CELL DISTRIBUTION WIDTH 16.2 % (11.5-14.5); WHITE BLOOD COUNT 7.6 10^3/ul (4.5-11.0)
[2016-12-01 08:23] LABS: ALB/GLOB RATIO 0.7 (1.1-1.8); ALBUMIN 2.3 g/dL (3.0-4.8); ALT/SGPT 24 U/L (7-56); AST/SGOT 25 U/L (15-39); BLOOD UREA NITROGEN 24 mg/dL (7-21); CALCIUM 7.7 mg/dL (8.4-10.5); GFR AFRICAN-AMERICAN > 60; GFR NON-AFRICAN AMERICAN > 60
[2016-12-01] MEDS: Insulin Reg-LOW-Coverage SC SCH ×4 (09:29→21:39)
[2016-12-01] MEDS: Enoxaparin 40 mg Syringe SC SCH (09:30)
[2016-12-01] MEDS: Vancomycin 1gm in NS 250ml 1 GM/250 ML BAG IVPB SCH (09:34)
[2016-12-01] MEDS: Albuterol-Ipratrop 3 mg / 0.5 (3 ml) UD IH SCH ×3 (12:03→20:02)
--- NOTE | 2016-12-01 12:48 | CP.PCM.PN ---
Subjective - Date & Time of Evaluation Date of Evaluation: 12/01/16 Time of Evaluation: 11:30 - Subjective Subjective: 81 year female pt seen at bedside for left lower extremity cellulitis & left foot ulceration. Pt is AAOx3 and is in NAD. Pt seen resting comfortably in bed at time of visit. Pt denies of any acute overnight events. Pt does complain of some tenderness to the left foot, specially during dressing changes. Pt denies of any recent F/N/V/C/SOB. Pt denies any other pedal problems today. Objective - Vital Signs/Intake and Output Vital Signs (last 24 hours): Temp Pulse Resp BP Pulse Ox 98.4 F 72 20 108/68 98 12/01/16 07:31 12/01/16 09:30 12/01/16 07:31 12/01/16 09:30 12/01/16 07:31 Intake and Output: 12/01/16 12/01/16 06:59 18:59 Intake Total 240 Balance 240 - Medications Medications: Current Medications Albuterol/Ipratropium (Duoneb 3 Mg/0.5 Mg (3 Ml) Ud) 3 ml IH [id number] Last Admin: 12/01/16 12:03 Dose: 3 ml Enoxaparin Sodium (Lovenox) 40 mg SC DAILY [facility] PRN Reason: Protocol Last Admin: 12/01/16 09:30 Dose: 40 mg Guaifenesin (Mucinex La) 600 mg PO BID PRN PRN Reason: Cough Last Admin: 12/01/16 10:35 Dose: 600 mg Guaifenesin (Mucinex La) 600 mg PO BID KEO Vancomycin HCl (Vancomycin 1gm) 1 gm in 250 mls @ 167 mls/hr IVPB DAILY [facility] PRN Reason: Protocol Last Admin: 12/01/16 09:34 Dose: 167 mls/hr Dexmedetomidine HCl (Precedex 4 Mcg/Ml (100 Ml)) 400 mcg in 100 mls @ 3.481 mls /hr IV .Q24H PRN; Protocol; 0.2 MCG/KG/HR PRN Reason: Agitation Last Admin: 11/28/16 05:42 Dose: 0.4 mcg/kg/hr, 6.963 mls/hr Meropenem 500 mg/ Sodium (Chloride) 100 mls @ 100 mls/hr IVPB Q8 [facility] PRN Reason: Protocol Last Admin: 12/01/16 05:21 Dose: 100 mls/hr Insulin Human Regular (Humulin R Low) 0 units SC ACHS [facility] PRN Reason: Protocol Last Admin: 12/01/16 09:29 Dose: Not Given Metoprolol Tartrate (Lopressor) 25 mg PO BID [facility] Last Admin: 12/01/16 09:30 Dose: 25 mg Pantoprazole Sodium (Protonix Inj) 40 mg IVP DAILY [facility] Last Admin: 12/01/16 09:30 Dose: 40 mg - Labs Labs: 12/01/16 08:05 12/01/16 08:05 PT 13.2 Seconds (9.9-11.8) H 11/27/16 11:44 INR 1.22 (0.93-1.08) H 11/27/16 11:44 APTT 34.7 Seconds (23.7-30.8) H 11/28/16 05:40 - Constitutional Appears: Well, Non-toxic, No Acute Distress - Extremities Exam Additional comments: Left lower extremity focused exam: VASC: DP and PT pulses are faintly palpable, capillary refill < 5 sec to digits x 5, +1 pitting edema noted to dorsum of the foot DERM: Dorsal foot wound and anterior ankle wound partial thickness ulceration measuring approximately 15 x 14 x .5 cm with mixed fibro-granular base. Mild serous drainage noted to the wound. No tracking. Dior-wound skin is fully epithelialized with some hyper pigmented noted to periwound. No purulence noted. mild malodor present during dressing change. There is also a superficial ulceration noted to plantar-medial heel, no fluctuance no drainage neg. probe to bone, granular base NEURO: unable to obtain ORTHO: tenderness to palpation of ankle wound - Neurological Exam Neurological Exam: Alert, Awake, Oriented x3 - Psychiatric Exam Psychiatric exam: Normal Affect, Normal Mood Assessment and Plan - Assessment and Plan (Free Text) Assessment: 81 y/o female seen at bedside with left dorsum foot ulceration secondary to chronic venous insufficiency Plan: Patient seen and evaluated Chart and labs reviewed, afebrile, WBC @ 7.6 today Left foot wound cx (11/28): gram neg jono, serratia marcescens(prelim) wound cleansed with betadine and sterile water, dressed with xeroform, DSD, ABD and kerlix Offloading prevalon boot to be worn to left foot at all times while in bed. Pt to remain on IV abx as per ID Podiatry will follow while pt is in house
[2016-12-01] MEDS: guaiFENesin 600 mg ER Tab PO SCH (17:13)
--- NOTE | 2016-12-01 17:33 | CP.PCM.PN ---
Subjective - Date & Time of Evaluation Date of Evaluation: 12/01/16 Time of Evaluation: 08:30 - Subjective Subjective: Pt s/e at bedside. L LE is bandaged, wound is still purulent and malodorous. Pt denies any complaints. Pt amenable to surgery with Dr. Patel, but he will be out of town and does not want to accept the case. Will discuss other options with patient. Patient complains of coughing and mild sob. Ordered a duonebs, mucinex. Will follow. No further complaints Objective - Vital Signs/Intake and Output Vital Signs (last 24 hours): Temp Pulse Resp BP Pulse Ox 98.7 F 65 20 132/72 97 12/01/16 16:30 12/01/16 16:30 12/01/16 16:30 12/01/16 16:30 12/01/16 16:30 Intake and Output: 12/01/16 12/01/16 06:59 18:59 Intake Total 240 Balance 240 - Medications Medications: Current Medications Albuterol/Ipratropium (Duoneb 3 Mg/0.5 Mg (3 Ml) Ud) 3 ml IH [id number] Last Admin: 12/01/16 12:05 Dose: 3 ml Enoxaparin Sodium (Lovenox) 40 mg SC DAILY [facility] PRN Reason: Protocol Last Admin: 12/01/16 09:30 Dose: 40 mg Guaifenesin (Mucinex La) 600 mg PO BID PRN PRN Reason: Cough Last Admin: 12/01/16 10:35 Dose: 600 mg Guaifenesin (Mucinex La) 600 mg PO BID [facility] Vancomycin HCl (Vancomycin 1gm) 1 gm in 250 mls @ 167 mls/hr IVPB DAILY [facility] PRN Reason: Protocol Last Admin: 12/01/16 09:34 Dose: 167 mls/hr Dexmedetomidine HCl (Precedex 4 Mcg/Ml (100 Ml)) 400 mcg in 100 mls @ 3.481 mls /hr IV .Q24H PRN; Protocol; 0.2 MCG/KG/HR PRN Reason: Agitation Last Admin: 11/28/16 05:42 Dose: 0.4 mcg/kg/hr, 6.963 mls/hr Meropenem 500 mg/ Sodium (Chloride) 100 mls @ 100 mls/hr IVPB Q8 [facility] PRN Reason: Protocol Last Admin: 12/01/16 13:35 Dose: 100 mls/hr Insulin Human Regular (Humulin R Low) 0 units SC ACHS [facility] PRN Reason: Protocol Last Admin: 12/01/16 12:49 Dose: Not Given Metoprolol Tartrate (Lopressor) 25 mg PO BID [facility] Last Admin: 12/01/16 12:50 Dose: Not Given Pantoprazole Sodium (Protonix Inj) 40 mg IVP DAILY [facility] Last Admin: 12/01/16 09:30 Dose: 40 mg - Labs Labs: 12/01/16 08:05 12/01/16 08:05 PT 13.2 Seconds (9.9-11.8) H 11/27/16 11:44 INR 1.22 (0.93-1.08) H 11/27/16 11:44 APTT 34.7 Seconds (23.7-30.8) H 11/28/16 05:40 - Constitutional Appears: No Acute Distress - Head Exam Head Exam: ATRAUMATIC, NORMAL INSPECTION, NORMOCEPHALIC - Eye Exam Eye Exam: EOMI, Normal appearance, PERRL Pupil Exam: NORMAL ACCOMODATION, PERRL - ENT Exam ENT Exam: Mucous Membranes Moist, Normal Exam. absent: Mucous Membranes Dry, TM 's Normal Bilaterally - Neck Exam Neck Exam: Full ROM, Normal Inspection. absent: Tenderness, Thyromegaly - Respiratory Exam Respiratory Exam: Rales, NORMAL BREATHING PATTERN. absent: Rhonchi, Wheezes - Cardiovascular Exam Cardiovascular Exam: REGULAR RHYTHM, +S1, +S2 - GI/Abdominal Exam GI & Abdominal Exam: Soft, Normal Bowel Sounds. absent: Tenderness - Rectal Exam Rectal Exam: Deferred - Extremities Exam Extremities Exam: absent: Calf Tenderness Additional comments: cellulitis left ankle wound, left foot red and +2 edema, foul smelling d/c noted to left ankle wound. mild TTP; - Back Exam Back Exam: Full ROM, NORMAL INSPECTION. absent: muscle spasm - Neurological Exam Neurological Exam: Alert, Awake, CN II-XII Intact, Oriented x3. absent: Altered , Motor Sensory Deficit - Psychiatric Exam Psychiatric exam: Normal Affect, Normal Mood - Skin Skin Exam: Normal Color Assessment and Plan - Assessment and Plan (Free Text) Assessment: Assessment: Ms. Lorenzo is an 81 y/o female with a PMHx specifically significant for DM, who presents to the ER from [facility] with a complaint of L LE cellulitis 1.) Acute Respiratory Distress - most likely 2/2 Pneumonitis d/t Aspiration - Extubated, Resolved - Patient's ox sat was 100 today - Patient d/c from ICU - Pt doing well on NC, but had acute sob and cough. Mucinex and duonebs ordered. 2.) Left Lower Extremity Cellulitis - XR Left Foot: fusion changes of distal tibia/fibula; diffuse demineralization ; No cortical destruction, but may need MRI - Wound Culture: Gram negative rods. - RPT CBC, BMP - ID C/S (Dr. Alvares): Start meropenem. Followed recs; no change - Surg C/S: No surgical intervention at this time - Podiatry C/S (Dr. Gilbert): Prevalon boot to be worn at all times while in bed. Podiatry will order. - Pt refusing surgery - Abx: Vanc, Meropenem - PICC Line Friday - Potential surgery, f/u with surgeon who will accept her. 3.) Pre-renal ARIEL, likely 2/2 Dehydration - resolving, urine output improved - BUN 54, CR 1.3 today; Admission - BUN 71, baseline 20s; Cr 1.4, baseline .7 - Nephro C/S: No acute need for renal replacement therapy at this time. Maintain hemodynamics stable. can continue with normal saline @ 75-100 ml/hr. Monitor Input/Output, daily weights and renal function with basic metabolic panel. Check renal sonogram. Dose meds/antibiotics for reduced GFR. Avoid fleets enema/magnesium based laxatives. Avoid nephrotoxins/NSAIDs/ iodinated contrast (unless needed emergently). Glycemic control - Renal sonogram: mild atrophy; no hydronephrosis. Renal lipomatosis 4.) Hyperkalemia, likely 2/2 #3: resolved - ED at 5.7; today, 4.0 - Insulin, Kayexelate, Albuterol given - Continue to monitor 5.) Leukocytosis without fever, likely 2/2 Cellulitis: resolved - Abx: Meropenem and Vanc - Procalcitonin ordered: elevated - Blood, urine and wound cultures ordered - ID, Dr. Alvares consulted 6.) Hx/O HTN - Hold metoprolol for now, pressure stable 7.) Hx/O DM - Sliding scale insulin low dose; hold metformin 8.) Hx/O A-Fib - Hold eliquis for now 9.) Hx/O Gout - Restart allopurinol allp 10.) DVT/GI PPHXS - IV Protonix/Heparin wound cleansed with betadine and sterile water, dressed with xeroform, DSD, ABD and kerlix
[2016-12-01] MEDS ORDERED: guaiFENesin-DM 600-30 mg ER Tab PO SCH (18:00)
--- NOTE | 2016-12-01 18:21 | CP.PCM.PN ---
Subjective - Date & Time of Evaluation Date of Evaluation: 12/01/16 Time of Evaluation: 17:15 - Subjective Subjective: Infectious Disease Follow Up: December 01, 2016 81 yo female well known to me sent from [facility] for Left lower leg cellulitis and chronic ulcerations. [place] [facility] [place] worsening renal function. The patient was found to be hyperkalemic. She was given Kayexalate and vomited. She required intubation at that point and was admitted to the MICU. Extubated yesterday afternoon. On high flow oxygen via NC. Cultures of blood and urine negative to date. Wound culture with gram negative rods. Serretia is one of the organisms identified at this time. There is a significant chance that the left lower leg is the major source of infection. See is willing to see Dr. Patel for surgery but he is not available as he is out of town for the week. Objective - Vital Signs/Intake and Output Vital Signs (last 24 hours): Temp Pulse Resp BP Pulse Ox 98.7 F 65 20 132/72 97 12/01/16 16:30 12/01/16 17:14 12/01/16 16:30 12/01/16 17:14 12/01/16 16:30 Intake and Output: 12/01/16 12/01/16 06:59 18:59 Intake Total 240 Balance 240 - Medications Medications: Current Medications Albuterol/Ipratropium (Duoneb 3 Mg/0.5 Mg (3 Ml) Ud) 3 ml IH [id number] [facility] Last Admin: 12/01/16 12:05 Dose: 3 ml Allopurinol (Zyloprim) 300 mg PO DAILY [facility] Enoxaparin Sodium (Lovenox) 40 mg SC DAILY [facility] PRN Reason: Protocol Last Admin: 12/01/16 09:30 Dose: 40 mg Guaifenesin (Mucinex La) 600 mg PO BID PRN PRN Reason: Cough Last Admin: 12/01/16 10:35 Dose: 600 mg Guaifenesin (Mucinex La) 600 mg PO BID [facility] Last Admin: 12/01/16 17:13 Dose: 600 mg Vancomycin HCl (Vancomycin 1gm) 1 gm in 250 mls @ 167 mls/hr IVPB DAILY [facility] PRN Reason: Protocol Last Admin: 12/01/16 09:34 Dose: 167 mls/hr Dexmedetomidine HCl (Precedex 4 Mcg/Ml (100 Ml)) 400 mcg in 100 mls @ 3.481 mls /hr IV .Q24H PRN; Protocol; 0.2 MCG/KG/HR PRN Reason: Agitation Last Admin: 11/28/16 05:42 Dose: 0.4 mcg/kg/hr, 6.963 mls/hr Meropenem 500 mg/ Sodium (Chloride) 100 mls @ 100 mls/hr IVPB Q8 [facility] PRN Reason: Protocol Last Admin: 12/01/16 13:35 Dose: 100 mls/hr Insulin Human Regular (Humulin R Low) 0 units SC ACHS [facility] PRN Reason: Protocol Last Admin: 12/01/16 17:13 Dose: Not Given Metoprolol Tartrate (Lopressor) 25 mg PO BID [facility] Last Admin: 12/01/16 17:14 Dose: 25 mg Pantoprazole Sodium (Protonix Inj) 40 mg IVP DAILY [facility] Last Admin: 12/01/16 09:30 Dose: 40 mg - Labs Labs: 12/01/16 08:05 12/01/16 08:05 PT 13.2 Seconds (9.9-11.8) H 11/27/16 11:44 INR 1.22 (0.93-1.08) H 11/27/16 11:44 APTT 34.7 Seconds (23.7-30.8) H 11/28/16 05:40 - Constitutional Appears: Non-toxic, No Acute Distress, Chronically Ill - Head Exam Head Exam: ATRAUMATIC, NORMOCEPHALIC - Eye Exam Eye Exam: EOMI, PERRL Pupil Exam: NORMAL ACCOMODATION, PERRL - ENT Exam ENT Exam: Mucous Membranes Moist, Normal External Ear Exam, TM's Normal Bilaterally - Neck Exam Neck Exam: Full ROM, Normal Inspection - Respiratory Exam Respiratory Exam: Clear to Ausculation Bilateral, NORMAL BREATHING PATTERN. absent: Rales, Rhonchi, Wheezes - Cardiovascular Exam Cardiovascular Exam: REGULAR RHYTHM, RRR, +S1, +S2 - GI/Abdominal Exam GI & Abdominal Exam: Soft, Normal Bowel Sounds. absent: Distended, Tenderness - Extremities Exam Additional comments: multiple non healing ulcer of the left leg with malodor and drainage as well as swelling and chronic skin and tissue changes to this leg. - Psychiatric Exam Psychiatric exam: Anxious, Depressed - Skin Additional comments: as per extremity exam. Assessment and Plan - Assessment and Plan (Free Text) Assessment: 81 yo female with worsening renal function and [place] [facility] [place] The patient was found to be hyperkalemia and vomiting in the ER. She required intubation and is not in the MICU. The patient is awake. She is on Precedex currently. She still remains hypotensive. Started on Aztreonam and Vancomycin IV for antibiotic coverage but if no improvement, I would use Meropenem despite PCN allergy. Especially since the patient was intubated and ventilated. Ibrahim cultures sent. Patient did not improve by much and Meropenem was started several days ago and continued. Vancomycin IV continued. Supportive care. Patient remains ill. Question of whether the patient should have amputation of the left leg (a chronic ongoing problem with the left leg). The left leg is the likely source of infection. Unfortunately, the patient is not willing to accept amputation unless certain doctors are involved. She was willing to speak to Dr. Patel, but he is not available to see the patient for the week. The patient has Serratia and Proteus in the wound cultures that is highly resistant to antibiotics. Options are extremely limited. Thank you for allowing me to participate in the care of the patient, we will follow with you.
--- NOTE | 2016-12-01 23:28 | CP.PCM.PN ---
Subjective - Date & Time of Evaluation Date of Evaluation: 12/01/16 Time of Evaluation: 13:00 - Subjective Subjective: General Surgery- Dr. Zamorano Surgery re-consulted for this pt for chronic LLE cellulits. Pt initially refused surgery of any kind, but is now only willing to see a select surgeion. Pt S&E at bedside. Pt states and understands that LLE is causing recurrent infections. she is complaining of continued pain that is manageable. Denies F/C JAY/SOB/CP N/V. Left leg redressed by podiatry just prior to examination Objective - Vital Signs/Intake and Output Vital Signs (last 24 hours): Temp Pulse Resp BP Pulse Ox 98.7 F 65 20 132/72 97 12/01/16 16:30 12/01/16 17:14 12/01/16 16:30 12/01/16 17:14 12/01/16 16:30 Intake and Output: 12/01/16 12/02/16 18:59 06:59 Intake Total 240 Balance 240 - Medications Medications: Current Medications Albuterol/Ipratropium (Duoneb 3 Mg/0.5 Mg (3 Ml) Ud) 3 ml IH [id number] Last Admin: 12/01/16 20:02 Dose: 3 ml Allopurinol (Zyloprim) 300 mg PO DAILY [facility] Enoxaparin Sodium (Lovenox) 40 mg SC DAILY [facility] PRN Reason: Protocol Last Admin: 12/01/16 09:30 Dose: 40 mg Guaifenesin (Mucinex La) 600 mg PO BID PRN PRN Reason: Cough Last Admin: 12/01/16 10:35 Dose: 600 mg Guaifenesin (Mucinex La) 600 mg PO BID [facility] Last Admin: 12/01/16 17:13 Dose: 600 mg Vancomycin HCl (Vancomycin 1gm) 1 gm in 250 mls @ 167 mls/hr IVPB DAILY [facility] PRN Reason: Protocol Last Admin: 12/01/16 09:34 Dose: 167 mls/hr Dexmedetomidine HCl (Precedex 4 Mcg/Ml (100 Ml)) 400 mcg in 100 mls @ 3.481 mls /hr IV .Q24H PRN; Protocol; 0.2 MCG/KG/HR PRN Reason: Agitation Last Admin: 11/28/16 05:42 Dose: 0.4 mcg/kg/hr, 6.963 mls/hr Meropenem 500 mg/ Sodium (Chloride) 100 mls @ 100 mls/hr IVPB Q8 [facility] PRN Reason: Protocol Last Admin: 12/01/16 21:40 Dose: 100 mls/hr Insulin Human Regular (Humulin R Low) 0 units SC ACHS [facility] PRN Reason: Protocol Last Admin: 12/01/16 21:39 Dose: Not Given Metoprolol Tartrate (Lopressor) 25 mg PO BID [facility] Last Admin: 12/01/16 17:14 Dose: 25 mg Pantoprazole Sodium (Protonix Inj) 40 mg IVP DAILY [facility] Last Admin: 12/01/16 09:30 Dose: 40 mg - Labs Labs: 12/01/16 08:05 12/01/16 08:05 PT 13.2 Seconds (9.9-11.8) H 11/27/16 11:44 INR 1.22 (0.93-1.08) H 11/27/16 11:44 APTT 34.7 Seconds (23.7-30.8) H 11/28/16 05:40 - Constitutional Appears: Non-toxic, No Acute Distress - Eye Exam Eye Exam: EOMI - ENT Exam ENT Exam: Mucous Membranes Moist - Respiratory Exam Respiratory Exam: NORMAL BREATHING PATTERN. absent: Accessory Muscle Use, Rhonchi, Wheezes - Cardiovascular Exam Cardiovascular Exam: REGULAR RHYTHM, +S1, +S2 - GI/Abdominal Exam GI & Abdominal Exam: Soft, Normal Bowel Sounds. absent: Distended, Tenderness - Extremities Exam Additional comments: LLE indurated, ulerated stage 3 - Neurological Exam Neurological Exam: Alert, Awake - Skin Additional comments: LLE cellulitis Assessment and Plan - Assessment and Plan (Free Text) Assessment: 81F recurrent LLE cellulitis Plan: - serratia only sensitive to Gentamicin. + Proteus * ID recs - surgery was re-consulted b/c pt would now consider getting a BKA if infection does not resolve - will re-assess the PT tomorrow morning. Pt still hesitant about surgery - further Recs per Dr. Zamorano d/w Dr. Jaun Jones PGY1
[2016-12-02] MEDS: Albuterol-Ipratrop 3 mg / 0.5 (3 ml) UD IH SCH ×3 (00:26→13:12)
[2016-12-02] MEDS: Meropenem 500 MG in Sodium Chloride 0.9% 100 ML IVPB SCH ×2 (05:11→15:12)
[2016-12-02] MEDS ORDERED: Pantoprazole 40 mg EC Tab PO SCH (06:00)
[2016-12-02 07:11] LABS: BASO # 0.01 K/mm3 (0.0-2.0); BASO % 0.2 % (0.0-3.0); EOS # 0.4 (0.0-0.7); EOS % 6.1 % (1.5-5.0); GRAN # 4.77 (1.4-6.5); GRAN % 75.9 % (50.0-68.0); HEMOGLOBIN 8.6 gm/dL (12.0-16.0); LYMPH # 0.7 (1.2-3.4); MEAN CELL VOLUME 88.6 fL (80.0-105.0); MEAN CORPUSCULAR HEMOGLOBIN 27.2 pg (25.0-35.0); MEAN CORPUSCULAR HGB CONC 30.7 g/dl (31.0-37.0); MONO # 0.4 (0.1-0.6); MONO % 6.8 % (1.0-6.0); PLATELET COUNT 182 10^3/uL (120.0-450.0); RBC 3.16 10^6/uL (3.5-6.1); RED CELL DISTRIBUTION WIDTH 16.2 % (11.5-14.5); WHITE BLOOD COUNT 6.3 10^3/ul (4.5-11.0)
[2016-12-02 07:29] LABS: ALB/GLOB RATIO 0.7 (1.1-1.8); ALBUMIN 2.2 g/dL (3.0-4.8); ALT/SGPT 19 U/L (7-56); AST/SGOT 22 U/L (15-39); BLOOD UREA NITROGEN 20 mg/dL (7-21); CALCIUM 7.8 mg/dL (8.4-10.5); GFR AFRICAN-AMERICAN > 60; GFR NON-AFRICAN AMERICAN > 60
--- NOTE | 2016-12-02 08:51 | CP.PCM.PN ---
Subjective - Date & Time of Evaluation Date of Evaluation: 12/02/16 Time of Evaluation: 08:00 - Subjective Subjective: General surgery - Dr. Zamorano Pt is a 81 y/o female with chronic LLE cellulitis who was S&E at bedside. Pt initially refused surgery but is now considering elective left BKA. Pt is having continued pain which is controlled. Pt denies F/C, N/V, CP, SOB, and JAY. Left leg redressed while in the room with xeroform and ABD pads. Objective - Vital Signs/Intake and Output Vital Signs (last 24 hours): Temp Pulse Resp BP Pulse Ox 98.7 F 65 20 132/72 97 12/01/16 16:30 12/01/16 17:14 12/01/16 16:30 12/01/16 17:14 12/01/16 16:30 Intake and Output: 12/02/16 12/02/16 06:59 18:59 Intake Total 420 Balance 420 - Medications Medications: Current Medications Albuterol/Ipratropium (Duoneb 3 Mg/0.5 Mg (3 Ml) Ud) 3 ml IH [id number] Last Admin: 12/02/16 07:22 Dose: 3 ml Allopurinol (Zyloprim) 300 mg PO DAILY KEO Enoxaparin Sodium (Lovenox) 40 mg SC DAILY KEO PRN Reason: Protocol Last Admin: 12/01/16 09:30 Dose: 40 mg Guaifenesin (Mucinex La) 600 mg PO BID PRN PRN Reason: Cough Last Admin: 12/01/16 10:35 Dose: 600 mg Guaifenesin (Mucinex La) 600 mg PO BID KEO Last Admin: 12/01/16 17:13 Dose: 600 mg Vancomycin HCl (Vancomycin 1gm) 1 gm in 250 mls @ 167 mls/hr IVPB DAILY KEO PRN Reason: Protocol Last Admin: 12/01/16 09:34 Dose: 167 mls/hr Dexmedetomidine HCl (Precedex 4 Mcg/Ml (100 Ml)) 400 mcg in 100 mls @ 3.481 mls /hr IV .Q24H PRN; Protocol; 0.2 MCG/KG/HR PRN Reason: Agitation Last Admin: 11/28/16 05:42 Dose: 0.4 mcg/kg/hr, 6.963 mls/hr Meropenem 500 mg/ Sodium (Chloride) 100 mls @ 100 mls/hr IVPB Q8 [facility] PRN Reason: Protocol Last Admin: 12/02/16 05:11 Dose: 100 mls/hr Insulin Human Regular (Humulin R Low) 0 units SC ACHS KEO PRN Reason: Protocol Last Admin: 12/01/16 21:39 Dose: Not Given Metoprolol Tartrate (Lopressor) 25 mg PO BID [facility] Last Admin: 12/01/16 17:14 Dose: 25 mg Pantoprazole Sodium (Protonix Ec Tab) 40 mg PO 0600 [facility] Last Admin: 12/02/16 06:12 Dose: 40 mg - Labs Labs: 12/02/16 06:45 12/02/16 06:45 PT 13.2 Seconds (9.9-11.8) H 11/27/16 11:44 INR 1.22 (0.93-1.08) H 11/27/16 11:44 APTT 34.7 Seconds (23.7-30.8) H 11/28/16 05:40 - Constitutional Appears: Non-toxic, No Acute Distress - Eye Exam Eye Exam: EOMI, Normal appearance - ENT Exam ENT Exam: Mucous Membranes Moist - Respiratory Exam Respiratory Exam: Clear to Ausculation Bilateral, NORMAL BREATHING PATTERN. absent: Rales, Rhonchi, Wheezes - Cardiovascular Exam Cardiovascular Exam: REGULAR RHYTHM, +S1, +S2 - GI/Abdominal Exam GI & Abdominal Exam: Soft, Normal Bowel Sounds. absent: Distended, Tenderness - Extremities Exam Additional comments: LLE indurated and tender, stage 3 ulceration, malodorous with discharge - Neurological Exam Neurological Exam: Alert, Awake - Skin Additional comments: LLE Cellulitis Assessment and Plan - Assessment and Plan (Free Text) Assessment: 81 y/o female with LLE nonhealing wound and left heel pressure ulcer Plan: 1. Serratia only sensitive to gentamycin, + proteus - ID recs 2. No surgical intervention at this time 3. Wet to dry dressings on LLE wound BID 4. Betadine dressing on left heel pressure ulcer BID Patient discussed with Dr. Jaun Lyle DO PGY1
[2016-12-02 09:07] VITALS: RESP 22; TEMP 97.5; O2SAT 98
--- NOTE | 2016-12-02 09:47 | CP.PCM.PN ---
<Nadira Manjarrez - Last Filed: 12/02/16 09:45> Subjective - Date & Time of Evaluation Date of Evaluation: 12/02/16 Time of Evaluation: 09:00 - Subjective Subjective: 81 year female pt seen at bedside with Dr. Gilbert present today for left foot ulceration. Pt states that she just had dressing changed by surgery team and is requesting to not have dressing changed again today. Dressing left intact, podiatry will re-evaluate patient tomorrow. Objective - Vital Signs/Intake and Output Vital Signs (last 24 hours): Temp Pulse Resp BP Pulse Ox 97.5 F L 64 22 126/57 L 98 12/02/16 07:30 12/02/16 07:30 12/02/16 07:30 12/02/16 07:30 12/02/16 07:30 Intake and Output: 12/02/16 12/02/16 06:59 18:59 Intake Total 420 Balance 420 - Medications Medications: Current Medications Albuterol/Ipratropium (Duoneb 3 Mg/0.5 Mg (3 Ml) Ud) 3 ml IH [id number] Last Admin: 12/02/16 07:22 Dose: 3 ml Allopurinol (Zyloprim) 300 mg PO DAILY KEO Enoxaparin Sodium (Lovenox) 40 mg SC DAILY KE[facility] PRN Reason: Protocol Last Admin: 12/01/16 09:30 Dose: 40 mg Guaifenesin (Mucinex La) 600 mg PO BID PRN PRN Reason: Cough Last Admin: 12/01/16 10:35 Dose: 600 mg Guaifenesin (Mucinex La) 600 mg PO BID [facility] Last Admin: 12/01/16 17:13 Dose: 600 mg Vancomycin HCl (Vancomycin 1gm) 1 gm in 250 mls @ 167 mls/hr IVPB DAILY KE[facility] PRN Reason: Protocol Last Admin: 12/01/16 09:34 Dose: 167 mls/hr Dexmedetomidine HCl (Precedex 4 Mcg/Ml (100 Ml)) 400 mcg in 100 mls @ 3.481 mls /hr IV .Q24H PRN; Protocol; 0.2 MCG/KG/HR PRN Reason: Agitation Last Admin: 11/28/16 05:42 Dose: 0.4 mcg/kg/hr, 6.963 mls/hr Meropenem 500 mg/ Sodium (Chloride) 100 mls @ 100 mls/hr IVPB Q8 [facility] PRN Reason: Protocol Last Admin: 12/02/16 05:11 Dose: 100 mls/hr Insulin Human Regular (Humulin R Low) 0 units SC ACHS [facility] PRN Reason: Protocol Last Admin: 12/01/16 21:39 Dose: Not Given Metoprolol Tartrate (Lopressor) 25 mg PO BID [facility] Last Admin: 12/01/16 17:14 Dose: 25 mg Pantoprazole Sodium (Protonix Ec Tab) 40 mg PO 0600 [facility] Last Admin: 12/02/16 06:12 Dose: 40 mg - Labs Labs: 12/02/16 06:45 12/02/16 06:45 PT 13.2 Seconds (9.9-11.8) H 11/27/16 11:44 INR 1.22 (0.93-1.08) H 11/27/16 11:44 APTT 34.7 Seconds (23.7-30.8) H 11/28/16 05:40 <Ge Gilbert - Last Filed: 12/03/16 09:13> Objective - Vital Signs/Intake and Output Vital Signs (last 24 hours): Temp Pulse Resp BP Pulse Ox 97.5 F L 63 22 129/55 L 98 12/02/16 07:30 12/02/16 20:20 12/02/16 07:30 12/02/16 20:20 12/02/16 07:30 - Labs Labs: 12/02/16 06:45 12/02/16 06:45 PT 13.2 Seconds (9.9-11.8) H 11/27/16 11:44 INR 1.22 (0.93-1.08) H 11/27/16 11:44 APTT 34.7 Seconds (23.7-30.8) H 11/28/16 05:40 Attending/Attestation - Attestation I have personally seen and examined this patient.: Yes I have fully participated in the care of the patient.: Yes I have reviewed all pertinent clinical information, including history, physical exam and plan: Yes
[2016-12-02] MEDS ORDERED: Lidocaine 2% Inj (20ml) ONE (10:58)
[2016-12-02] MEDS: Vancomycin 1gm in NS 250ml 1 GM/250 ML BAG IVPB SCH (12:09)
[2016-12-02] MEDS: Enoxaparin 40 mg Syringe SC SCH (12:10)
[2016-12-02] MEDS: guaiFENesin 600 mg ER Tab PO SCH ×2 (12:10→17:28)
--- NOTE | 2016-12-02 13:19 | CP.PCM.PN ---
Subjective - Date & Time of Evaluation Date of Evaluation: 12/02/16 Time of Evaluation: 13:16 - Subjective Subjective: Medicine Progress note for Dr. Rosalino Waller Pt s/e at bedside. No acute events overnight. Patient denies any complains at the time of visit. L LE is bandaged, wound is still purulent and malodorous. Dr. Oneill was consulted for the lower extremity cellulitis possible amputation. Dr. Long will be out of town and would not be able to accept the case. Patient admits to coughing, mild SOB. Patient denies Fever, chills, Nausea, vomitting. Patient has duonebs and mucinex ordered. Objective - Vital Signs/Intake and Output Vital Signs (last 24 hours): Temp Pulse Resp BP Pulse Ox 97.5 F L 64 22 126/57 L 98 12/02/16 07:30 12/02/16 07:30 12/02/16 07:30 12/02/16 07:30 12/02/16 07:30 Intake and Output: 12/02/16 12/02/16 06:59 18:59 Intake Total 420 Balance 420 - Medications Medications: Current Medications Albuterol/Ipratropium (Duoneb 3 Mg/0.5 Mg (3 Ml) Ud) 3 ml IH [id number] [facility] Last Admin: 12/02/16 13:12 Dose: 3 ml Allopurinol (Zyloprim) 300 mg PO DAILY KEO Last Admin: 12/02/16 12:10 Dose: 300 mg Enoxaparin Sodium (Lovenox) 40 mg SC DAILY KEO PRN Reason: Protocol Last Admin: 12/02/16 12:10 Dose: 40 mg Guaifenesin (Mucinex La) 600 mg PO BID PRN PRN Reason: Cough Last Admin: 12/01/16 10:35 Dose: 600 mg Guaifenesin (Mucinex La) 600 mg PO BID [facility] Last Admin: 12/02/16 12:10 Dose: 600 mg Vancomycin HCl (Vancomycin 1gm) 1 gm in 250 mls @ 167 mls/hr IVPB DAILY KE[facility] PRN Reason: Protocol Last Admin: 12/02/16 12:09 Dose: 167 mls/hr Dexmedetomidine HCl (Precedex 4 Mcg/Ml (100 Ml)) 400 mcg in 100 mls @ 3.481 mls /hr IV .Q24H PRN; Protocol; 0.2 MCG/KG/HR PRN Reason: Agitation Last Admin: 11/28/16 05:42 Dose: 0.4 mcg/kg/hr, 6.963 mls/hr Meropenem 500 mg/ Sodium (Chloride) 100 mls @ 100 mls/hr IVPB Q8 [facility] PRN Reason: Protocol Last Admin: 12/02/16 05:11 Dose: 100 mls/hr Insulin Human Regular (Humulin R Low) 0 units SC ACHS KEO PRN Reason: Protocol Last Admin: 12/01/16 21:39 Dose: Not Given Metoprolol Tartrate (Lopressor) 25 mg PO BID [facility] Last Admin: 12/01/16 17:14 Dose: 25 mg Pantoprazole Sodium (Protonix Ec Tab) 40 mg PO 0600 [facility] Last Admin: 12/02/16 06:12 Dose: 40 mg - Labs Labs: 12/02/16 06:45 12/02/16 06:45 PT 13.2 Seconds (9.9-11.8) H 11/27/16 11:44 INR 1.22 (0.93-1.08) H 11/27/16 11:44 APTT 34.7 Seconds (23.7-30.8) H 11/28/16 05:40 - Constitutional Appears: No Acute Distress - Head Exam Head Exam: NORMAL INSPECTION, NORMOCEPHALIC - Eye Exam Eye Exam: EOMI, Normal appearance Pupil Exam: NORMAL ACCOMODATION - ENT Exam ENT Exam: Mucous Membranes Moist - Neck Exam Neck Exam: Full ROM, Normal Inspection - Respiratory Exam Respiratory Exam: Rhonchi, NORMAL BREATHING PATTERN. absent: Accessory Muscle Use, Respiratory Distress Additional comments: crackles - Cardiovascular Exam Cardiovascular Exam: REGULAR RHYTHM. absent: Bradycardia, Tachycardia - GI/Abdominal Exam GI & Abdominal Exam: Soft. absent: Guarding, Rigid, Tenderness - Extremities Exam Extremities Exam: absent: Pedal Edema Additional comments: Left Lower Extremity Cellulitis - Neurological Exam Neurological Exam: Alert, Awake, Oriented x3 - Skin Skin Exam: Normal Color, Warm Additional comments: Left Lower Extremity Cellulitis Assessment and Plan - Assessment and Plan (Free Text) Assessment: 81F admitted for L LE cellulitis with a PMHx specifically significant for DM Plan: 1.) Acute Respiratory Distress - most likely 2/2 Pneumonitis d/t Aspiration - Extubated, Resolved - Pt doing well on NC, has sob and cough. Mucinex and duonebs ordered. 2.) Left Lower Extremity Cellulitis - XR Left Foot: fusion changes of distal tibia/fibula; diffuse demineralization ; No cortical destruction, but may need MRI - Wound Culture: Gram negative rods. f/u CBC, BMP continue with Merrem f/u Dr. Oneill's recommendations. Prevalon boot to be worn at all times in bed per Podiatry PICC Placed today via IR 3.) Pre-renal RAIEL, likely 2/2 Dehydration - resolving, urine output improved monitor BUN/Cr f/u renal US 4.) DVT/GI PPx - IV Protonix/Heparin wound cleansed with betadine and sterile water, dressed with xeroform, DSD, ABD and kerlix Chioma Ji DO PGY1
--- NOTE | 2016-12-02 13:55 | CP.PCM.PN ---
Subjective - Date & Time of Evaluation Date of Evaluation: 12/02/16 Time of Evaluation: 13:52 - Subjective Subjective: Follow up Nephrology Consultation Note Assessment: stable Acute Kidney Injury (N17.9) likely pre-renal state as also evident by low urine Na and high BUN/creat ratio further contributed by hypotension/shock state. Glomerulonephritis less likely: RESOLVED Hyponatremia, Hyperkalemia: resolved. 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 Avoid fleets enema/magnesium based laxatives. Avoid nephrotoxins/NSAIDs. Glycemic control. correction anemia as per primary team Thanks for allowing me to participate in care of your patient. Please call if any Qs. will f/up PRN in hospital. Dr Gustavo Tanner Office: [phone] HPI: Pt is 81 y/o F with hx of diabetes Mellitus, A fib, hypothyroidism, chronic left swelling and cellulitis, COPD, s/p left PPM initially presented with left leg cellulitis. She was given kayexylate for elevated potassium. she also got IV vancomycin. but she became hypoxic and possibly aspirated. she was intubated for respi failure and renal consult was requested for ARIEL and elevated BUN. she has been hypotensive BP in 80s. No known recent iodinated contrast exposure. Subjective: Noted events overnight. Patients feels okay. Denies chest pain, palpitation, shortness of breath, No urinary complaints but has jaquez. she was extubated 11/28 Physical Examination: General Appearance: Comfortable, in no acute respiratory distress, co- operative. Vitals reviewed and noted as below Lungs: Normal respiratory rate/effort. Breath sounds bilateral equal and clear Heart: Normal rate. s1s2 normal. No rub or gallop. Extremities: no edema in RLE, has chronic LLE edema and has overlying dressing over wound. Neurological: Patient is alert, awake No focal deficit. Strength bilateral appropriate and equal Skin: Warm and dry. Normal turgor. No rash. Palpitation: Normal elasticity for age Abdomen: Abdomen is soft. Bowel sounds +. There is no abdominal tenderness, no guarding/rigidity or organomegaly : kidney or bladder not palpable has jaquez Labs/imaging reviewed. Past medical history, past surgical history, family history, social history, allergy reviewed renal sono: b/l atrophy and loss of corticomedullar differentiation UA: no cellular casts Objective - Vital Signs/Intake and Output Vital Signs (last 24 hours): Temp Pulse Resp BP Pulse Ox 97.5 F L 64 22 126/57 L 98 12/02/16 07:30 12/02/16 07:30 12/02/16 07:30 12/02/16 07:30 12/02/16 07:30 Intake and Output: 12/02/16 12/02/16 06:59 18:59 Intake Total 420 Balance 420 - Medications Medications: Current Medications Albuterol/Ipratropium (Duoneb 3 Mg/0.5 Mg (3 Ml) Ud) 3 ml IH [id number] Last Admin: 12/02/16 13:12 Dose: 3 ml Allopurinol (Zyloprim) 300 mg PO DAILY KEO Last Admin: 12/02/16 12:10 Dose: 300 mg Enoxaparin Sodium (Lovenox) 40 mg SC DAILY KE[facility] PRN Reason: Protocol Last Admin: 12/02/16 12:10 Dose: 40 mg Guaifenesin (Mucinex La) 600 mg PO BID PRN PRN Reason: Cough Last Admin: 12/01/16 10:35 Dose: 600 mg Guaifenesin (Mucinex La) 600 mg PO BID [facility] Last Admin: 12/02/16 12:10 Dose: 600 mg Vancomycin HCl (Vancomycin 1gm) 1 gm in 250 mls @ 167 mls/hr IVPB DAILY [facility] PRN Reason: Protocol Last Admin: 12/02/16 12:09 Dose: 167 mls/hr Dexmedetomidine HCl (Precedex 4 Mcg/Ml (100 Ml)) 400 mcg in 100 mls @ 3.481 mls /hr IV .Q24H PRN; Protocol; 0.2 MCG/KG/HR PRN Reason: Agitation Last Admin: 11/28/16 05:42 Dose: 0.4 mcg/kg/hr, 6.963 mls/hr Meropenem 500 mg/ Sodium (Chloride) 100 mls @ 100 mls/hr IVPB Q8 [facility] PRN Reason: Protocol Last Admin: 12/02/16 05:11 Dose: 100 mls/hr Insulin Human Regular (Humulin R Low) 0 units SC ACHS [facility] PRN Reason: Protocol Last Admin: 12/01/16 21:39 Dose: Not Given Metoprolol Tartrate (Lopressor) 25 mg PO BID [facility] Last Admin: 12/01/16 17:14 Dose: 25 mg Pantoprazole Sodium (Protonix Ec Tab) 40 mg PO 0600 [facility] Last Admin: 12/02/16 06:12 Dose: 40 mg - Labs Labs: 12/02/16 06:45 12/02/16 06:45 PT 13.2 Seconds (9.9-11.8) H 11/27/16 11:44 INR 1.22 (0.93-1.08) H 11/27/16 11:44 APTT 34.7 Seconds (23.7-30.8) H 11/28/16 05:40
[2016-12-02] MEDS: Insulin Reg-LOW-Coverage SC SCH ×2 (16:11→17:04)
--- NOTE | 2016-12-02 17:38 | CP.PCM.PN ---
Subjective - Date & Time of Evaluation Date of Evaluation: 12/02/16 Time of Evaluation: 16:15 - Subjective Subjective: Infectious Disease Follow Up: December 02, 2016 81 yo female well known to me sent from [facility] for Left lower leg cellulitis and chronic ulcerations. She was sent to [facility] for evaluation of worsening renal function. The patient was found to be hyperkalemic. She was given Kayexalate and vomited. She required intubation at that point and was admitted to the MICU. Extubated yesterday afternoon. On high flow oxygen via NC. Cultures of blood and urine negative to date. Wound culture with gram negative rods. Serretia is one of the organisms identified at this time. The patient's left lower leg is the major source of infection. See is willing to see Dr. Patel for surgery but he is not available as he is out of town for the week to my understanding. Cultures with Proteus and MDR Serratia. Currently on Meropenem and Vancomycin. Objective - Vital Signs/Intake and Output Vital Signs (last 24 hours): Temp Pulse Resp BP Pulse Ox 97.5 F L 64 22 126/57 L 98 12/02/16 07:30 12/02/16 16:11 12/02/16 07:30 12/02/16 16:11 12/02/16 07:30 Intake and Output: 12/02/16 12/02/16 06:59 18:59 Intake Total 420 360 Balance 420 360 - Medications Medications: Current Medications Albuterol/Ipratropium (Duoneb 3 Mg/0.5 Mg (3 Ml) Ud) 3 ml IH [id number] [facility] Last Admin: 12/02/16 13:12 Dose: 3 ml Allopurinol (Zyloprim) 300 mg PO DAILY [facility] Last Admin: 12/02/16 12:10 Dose: 300 mg Enoxaparin Sodium (Lovenox) 40 mg SC DAILY [facility] PRN Reason: Protocol Last Admin: 12/02/16 12:10 Dose: 40 mg Guaifenesin (Mucinex La) 600 mg PO BID PRN PRN Reason: Cough Last Admin: 12/01/16 10:35 Dose: 600 mg Guaifenesin (Mucinex La) 600 mg PO BID [facility] Last Admin: 12/02/16 12:10 Dose: 600 mg Vancomycin HCl (Vancomycin 1gm) 1 gm in 250 mls @ 167 mls/hr IVPB DAILY [facility] PRN Reason: Protocol Last Admin: 12/02/16 12:09 Dose: 167 mls/hr Dexmedetomidine HCl (Precedex 4 Mcg/Ml (100 Ml)) 400 mcg in 100 mls @ 3.481 mls /hr IV .Q24H PRN; Protocol; 0.2 MCG/KG/HR PRN Reason: Agitation Last Admin: 11/28/16 05:42 Dose: 0.4 mcg/kg/hr, 6.963 mls/hr Meropenem 500 mg/ Sodium (Chloride) 100 mls @ 100 mls/hr IVPB Q8 [facility] PRN Reason: Protocol Last Admin: 12/02/16 15:12 Dose: 100 mls/hr Insulin Human Regular (Humulin R Low) 0 units SC ACHS [facility] PRN Reason: Protocol Last Admin: 12/02/16 17:04 Dose: Not Given Metoprolol Tartrate (Lopressor) 25 mg PO BID [facility] Last Admin: 12/02/16 16:11 Dose: Not Given Pantoprazole Sodium (Protonix Ec Tab) 40 mg PO 0600 [facility] Last Admin: 12/02/16 06:12 Dose: 40 mg - Labs Labs: 12/02/16 06:45 12/02/16 06:45 PT 13.2 Seconds (9.9-11.8) H 11/27/16 11:44 INR 1.22 (0.93-1.08) H 11/27/16 11:44 APTT 34.7 Seconds (23.7-30.8) H 11/28/16 05:40 - Constitutional Appears: Non-toxic, No Acute Distress, Chronically Ill - Head Exam Head Exam: ATRAUMATIC, NORMOCEPHALIC - Eye Exam Eye Exam: EOMI, PERRL Pupil Exam: NORMAL ACCOMODATION, PERRL - ENT Exam ENT Exam: Mucous Membranes Moist, Normal External Ear Exam, TM's Normal Bilaterally - Neck Exam Neck Exam: Full ROM, Normal Inspection - Respiratory Exam Respiratory Exam: Clear to Ausculation Bilateral, NORMAL BREATHING PATTERN. absent: Rales, Rhonchi, Wheezes - Cardiovascular Exam Cardiovascular Exam: REGULAR RHYTHM, RRR, +S1, +S2 - GI/Abdominal Exam GI & Abdominal Exam: Soft, Normal Bowel Sounds. absent: Distended, Tenderness - Extremities Exam Additional comments: multiple non healing ulcer of the left leg with malodor and drainage as well as swelling and chronic skin and tissue changes to this leg. - Neurological Exam Neurological Exam: Alert, Awake, CN II-XII Intact, Oriented x3 - Psychiatric Exam Psychiatric exam: Normal Affect, Normal Mood - Skin Additional comments: As per extremity exam. Assessment and Plan - Assessment and Plan (Free Text) Assessment: 81 yo female with worsening renal function and sent to [facility] for evaluation. The patient was found to be hyperkalemia and vomiting in the ER. She required intubation and is not in the MICU. The patient is awake. She is on Precedex currently. She still remains hypotensive. Started on Aztreonam and Vancomycin IV for antibiotic coverage but if no improvement, I would use Meropenem despite PCN allergy. Especially since the patient was intubated and ventilated. Ibrahim cultures sent. Patient did not improve by much and Meropenem was started several days ago and continued. Vancomycin IV continued. Supportive care. Patient remains ill. Question of whether the patient should have amputation of the left leg (a chronic ongoing problem with the left leg). The left leg is the likely source of infection. Unfortunately, the patient is not willing to accept amputation unless certain doctors are involved. She was willing to speak to Dr. Patel, but he is not available to see the patient for the week. The patient has Serratia and Proteus in the wound cultures that is highly resistant to antibiotics. Options are extremely limited. I would not start Colistin or Aminoglycosides as both have poor tissue penetration. In this patient's case, it would not solve the infection problem and at best keep the infection from reaching the bloodstream while the antibiotics were being administered. In addition, aminoglycosides like gentamicin can be given for no more than two weeks before the risks of ototoxicity and renal toxicity would affect the patient. The patient ototoxicity that could occur would be permanent as well. Colistin is a detergent and carries a high risk to the liver. Thank you for allowing me to participate in the care of the patient, we will follow with you.
--- NOTE | 2016-12-02 19:25 | VASCULAR ---
PROCEDURE: Ultrasound and fluoroscopically placed left upper extremity PICC line. HISTORY: Left lower extremity cellulitis. Long-term IV antibiotics. Needs PICC line. PHYSICIAN(S): Miguel Guzman MD. TECHNIQUE: From previous procedures it was determined a right upper extremity is no longer adequate for PICC line placement. The relative risks and indications of the procedure were explained to the patient and consent obtained. The patient was placed supine on the arteriogram table and the left arm prepped and draped in the usual sterile fashion. A tourniquet was applied to the left axilla. 1% Xylocaine was used to anesthetize the skin and soft tissues at the puncture site above the elbow. The left basilic vein was punctured under direct ultrasound guidance with a micropuncture set. A 0.018 guidewire was advanced centrally and used to measure the length to the SVC/RA junction. A 5 [place] single-lumen PICC line 39 cm long was advanced to the SVC/RA junction. The catheter was flushed and secured. The patient tolerated the procedure well. IMPRESSION: 1. Ultrasound and fluoroscopically placed left upper extremity PICC line. A 5 [place] single-lumen PICC line 39 cm long was advanced to the SVC/RA junction.
[2016-12-02 20:21] VITALS: BP 129/55; PULSE 63
--- NOTE | 2016-12-03 06:02 | CP.PCM.DIS ---
Provider - Provider Date of Admission: 11/27/16 12:50 Attending physician: Christin Jerry MD Primary care physician: Dr. Waller Consults: Dr. Oneill consulted for possible amputation, patient will f/u in one week with surgery Dr. Tanner consulted for pre-renal ARF, patient was kept on fluids, with monitoring of BUN/Cr Dr. Guzman was consulted for PICC line, patient received PICC line social work was consulted for evaluation of wound care. Dr. Alvares was consulted for sepsis, and patient was placed on antibiotics during stay. please see MAR for further details Time Spent in preparation of Discharge (in minutes): 30 Hospital Course - Lab Results Lab Results: Micro Results 11/28/16 15:25 Foot - Left Gram Stain - Final 11/28/16 15:25 Foot - Left Wound Culture - Final Proteus Mirabilis Serratia Marcescens 11/27/16 18:18 Nose MRSA Culture (Admit) - Final MRSA NOT DETECTED Most Recent Lab Values WBC 6.3 10^3/ul (4.5-11.0) 12/02/16 06:45 RBC 3.16 10^6/uL (3.5-6.1) L 12/02/16 06:45 Hgb 8.6 gm/dL (12.0-16.0) L 12/02/16 06:45 Hct 28.0 % (36.0-48.0) L 12/02/16 06:45 MCV 88.6 fL (80.0-105.0) 12/02/16 06:45 MCH 27.2 pg (25.0-35.0) 12/02/16 06:45 MCHC 30.7 g/dl (31.0-37.0) L 12/02/16 06:45 RDW 16.2 % (11.5-14.5) H 12/02/16 06:45 Plt Count 182 10^3/uL (120.0-450.0) 12/02/16 06:45 MPV 11.0 fl (7.0-11.0) 12/02/16 06:45 Gran % 75.9 % (50.0-68.0) H 12/02/16 06:45 Lymph % (Auto) 11.0 % (22.0-35.0) L 12/02/16 06:45 [place] % (Auto) 6.8 % (1.0-6.0) H 12/02/16 06:45 Eos % (Auto) 6.1 % (1.5-5.0) H 12/02/16 06:45 Baso % (Auto) 0.2 % (0.0-3.0) 12/02/16 06:45 Gran # 4.77 (1.4-6.5) 12/02/16 06:45 Lymph # 0.7 (1.2-3.4) L 12/02/16 06:45 [place] # 0.4 (0.1-0.6) 12/02/16 06:45 Eos # 0.4 (0.0-0.7) 12/02/16 06:45 Baso # 0.01 K/mm3 (0.0-2.0) 12/02/16 06:45 PT 13.2 Seconds (9.9-11.8) H 11/27/16 11:44 INR 1.22 (0.93-1.08) H 11/27/16 11:44 APTT 34.7 Seconds (23.7-30.8) H 11/28/16 05:40 pCO2 36 mm/Hg (35-45) 11/28/16 05:20 pO2 80.0 mm/Hg (80-100) 11/28/16 05:20 HCO3 15.1 mmol/L (21-28) L 11/28/16 05:20 ABG pH 7.23 (7.35-7.45) L 11/28/16 05:20 ABG Total CO2 16.2 mmol.L (22-28) L 11/28/16 05:20 ABG O2 Saturation 97.4 % (95-98) 11/28/16 05:20 ABG O2 Content 11.9 ML/dl (15-23) L 11/28/16 05:20 ABG Base Excess -11.5 mmol/L (-2.0-3.0) L 11/28/16 05:20 ABG Hemoglobin 8.8 g/dL (11.7-17.4) L 11/28/16 05:20 ABG Carboxyhemoglobin 1.6 % (0.5-1.5) H 11/28/16 05:20 POC ABG HHb (Measured) 2.5 % (0-5) 11/28/16 05:20 ABG Methemoglobin 0.8 % (0.0-3.0) 11/28/16 05:20 ABG O2 Capacity 12.2 mL/dl (16-24) L 11/28/16 05:20 VBG pH 7.27 (7.32-7.43) L 11/27/16 11:44 VBG pCO2 52.0 (40-60) 11/27/16 11:44 VBG HCO3 23.9 mmol/l (21-28) 11/27/16 11:44 VBG Total CO2 25.5 mmol.L (22-28) 11/27/16 11:44 VBG O2 Sat (Calc) 71.4 % (40-65) H 11/27/16 11:44 VBG Base Excess -3.3 mmol/L (0.0-2.0) L 11/27/16 11:44 VBG Potassium 6.6 mmol/L (3.6-5.2) H* 11/27/16 11:44 Hgb O2 Saturation 95.1 % (95.0-98.0) 11/28/16 05:20 Sodium 144.0 mmol/L (132-148) 11/27/16 11:44 Chloride 90.0 mmol/L (98-107) L 11/27/16 11:44 Glucose 302 mg/dl (65-105) H 11/27/16 11:44 Lactate 1.6 mmol/L (0.7-2.1) 11/27/16 11:44 FiO2 60.0 % 11/28/16 05:20 Sodium 141 mmol/L (132-148) 12/02/16 06:45 Potassium 3.9 mmol/L (3.6-5.0) 12/02/16 06:45 Chloride 111 mmol/L (98-107) H 12/02/16 06:45 Carbon Dioxide 24 mmol/L (21-33) 12/02/16 06:45 Anion Gap 10 (10-20) 12/02/16 06:45 BUN 20 mg/dL (7-21) 12/02/16 06:45 Creatinine 0.8 mg/dL (0.5-1.4) 12/02/16 06:45 Est GFR ( Amer) > 60 12/02/16 06:45 Est GFR (Non-Af Amer) > 60 12/02/16 06:45 POC Glucose (mg/dL) 132 mg/dL (65-110) H 12/02/16 16:24 Random Glucose 104 mg/dL (70-110) 12/02/16 06:45 Serum Osmolality 316 mosm/kg (271-296) H 11/27/16 22:00 Calcium 7.8 mg/dL (8.4-10.5) L 12/02/16 06:45 Phosphorus 4.7 mg/dL (2.5-4.5) H 11/27/16 11:44 Magnesium 2.5 mg/dL (1.7-2.2) H 11/27/16 11:44 Total Bilirubin 0.6 mg/dL (0.2-1.3) 12/02/16 06:45 AST 22 U/L (15-39) 12/02/16 06:45 ALT 19 U/L (7-56) 12/02/16 06:45 Alkaline Phosphatase 89 U/L (38-133) 12/02/16 06:45 Total Protein 5.4 g/dL (5.8-8.3) L 12/02/16 06:45 Albumin 2.2 g/dL (3.0-4.8) L 12/02/16 06:45 Globulin 3.2 gm/dL 12/02/16 06:45 Albumin/Globulin Ratio 0.7 (1.1-1.8) L 12/02/16 06:45 Procalcitonin 0.08 NG/ML (0.19-0.49) L 11/27/16 11:44 Venous Blood Potassium 6.6 mmol/L (3.6-5.2) H* 11/27/16 11:44 Urine Color Yellow (YELLOW) 11/27/16 11:44 Urine Appearance Clear (CLEAR) 11/27/16 11:44 Urine pH 6.0 (4.7-8.0) 11/27/16 11:44 Ur Specific [place] 1.015 (1.005-1.035) 11/27/16 11:44 Urine Protein Negative mg/dL (<30 mg/dL) 11/27/16 11:44 Urine Glucose (UA) Negative mg/dL (NEGATIVE) 11/27/16 11:44 Urine Ketones Negative mg/dL (NEGATIVE) 11/27/16 11:44 Urine Blood Moderate (NEGATIVE) H 11/27/16 11:44 Urine Nitrate Negative (NEGATIVE) 11/27/16 11:44 Urine Bilirubin Negative (NEGATIVE) 11/27/16 11:44 Urine Urobilinogen 0.2 E.U./dL (<1 E.U./dL) 11/27/16 11:44 Ur Leukocyte Esterase Negative Matilda/uL (NEGATIVE) 11/27/16 11:44 Urine RBC 1 - 3 /hpf (0-2) 11/27/16 11:44 Urine WBC Negative /hpf (0-6) 11/27/16 11:44 Ur Epithelial Cells 0 - 2 /hpf (0-5) 11/27/16 11:44 Urine Bacteria Trace (NEG) 11/27/16 11:44 Urine Osmolality 461 mosm/kg (50-645) 11/27/16 17:05 Ur Random Sodium 9 meq/L 11/27/16 17:05 - Hospital Course Hospital Course: 81F with a PMHx specifically significant for DM, who presented to the ER from [facility] with a complaint of L LE cellulitis. Dr. Sparks advised her to go to the ER for a PICC line. Patient reports she is on antibiotics but does not recall which ones. She has had prior infections before , documented on 10/10/2016 with the same complaint and was discharged on ABx, but the infection has gotten worse since her discharge. 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 Patient denies chest pain, shortness of breath, headache, fever, chills, cough, nausea, vomiting, diarrhea , abdominal pain, dizziness or lightheadedness. During her stay, patient had acute respiratory distress after Vancomycin was adminstered, vomited, and had to be intubated. CXR was ordered and bilateral breath sounds were auscultated to confirm proper placement of tube. Meropenem started on 11/28, resumed anticoagulation, continued to ween. Patient was then extubated and is awake and alert, considering amputation 11/30-PICC Line was placed Abx. On 7/30, Wound culture came back positive for Serratia in wound culture. Dr. Zamorano is leaving for two weeks and was not able to do the surgery. Dr. Oneill was then consulted. Discharge Exam - Head Exam Head Exam: ATRAUMATIC, NORMOCEPHALIC - Eye Exam Eye Exam: EOMI, Normal appearance - ENT Exam ENT Exam: Mucous Membranes Moist - Neck Exam Neck exam: Full Rom - Cardiovascular Exam Cardiovascular Exam: REGULAR RHYTHM - Extremities Exam Extremities exam: tenderness - Skin Additional comments: L LE cellulitis. malodorous. Discharge Plan - Discharge Medications Prescriptions: Meropenem [Merrem IV] 500 mg IVPB Q8 #42 vial Vancomycin 1gm in NS 250ml [Vancomycin 1gm] 1 gm IVPB DAILY #14 bag - Follow Up Plan Condition: CRITICAL Disposition: TRANSF TO SNF Instructions: Atrial Fibrillation (DC), Pacemaker (DC), Cellulitis (GEN), Complete Blenderized Diet (DC), Diabetes Mellitus Type 2 in Adults (GEN), COPD ( Chronic Obstructive Pulmonary Disease) (DC), Cellulitis (DC) Additional Instructions: 1. f/u with primary doctor in 1 week 2. f/u with Drugless Doctor in 1 week 3. f/u with surgery in 1 week 4. get weekly labs (CBC, CMP, ESR, CRP) 5. continue IV antibiotics with Merrem and Vancomycin as instructed for two weeks 6. resume home meds as directed 7. return to ER if condition worsens. Referrals: Ge Gilbert DPM [Staff Provider] - Rosalino MORAES,MD Christin [Staff Provider] -
== END 2016-12-02 18:47 | DRG 208 ==
LOC: ED 10:03 → ERH 12:50 → CCU 15:48 → 5RNO 11-30 01:43
PROVIDERS: ADMIT Internal Medicine; ATTEND Internal Medicine
PROC: 5A1935Z Respiratory Ventilation, Less than 24 Consecutive Hours (ICD-10-PCS; principal; 2016-11-27)
PROC: 0BH17EZ Insertion of Endotracheal Airway into Trachea, Via Natural or Artificial Opening (ICD-10-PCS; 2016-11-27)
PROC: 3E0F7GC Introduction of Other Therapeutic Substance into Respiratory Tract, Via Natural or Artificial Opening (ICD-10-PCS; 2016-11-27)
PROC: 02HV33Z Insertion of Infusion Device into Superior Vena Cava, Percutaneous Approach (ICD-10-PCS; 2016-12-02)
PROC: B548ZZA Ultrasonography of Superior Vena Cava, Guidance (ICD-10-PCS; 2016-12-02)
DX: J69.0 Pneumonitis due to inhalation of food and vomit (principal); J96.01 Acute respiratory failure with hypoxia; L03.116 Cellulitis of left lower limb; N17.9 Acute kidney failure, unspecified; E87.2 Acidosis; R57.9 Shock, unspecified; E87.5 Hyperkalemia; E86.0 Dehydration; F03.90 Unspecified dementia, unspecified severity, without behavioral disturbance, psychotic disturbance, mood disturbance, and anxiety; E11.22 Type 2 diabetes mellitus with diabetic chronic kidney disease; I12.9 Hypertensive chronic kidney disease with stage 1 through stage 4 chronic kidney disease, or unspecified chronic kidney disease; E87.1 Hypo-osmolality and hyponatremia; I48.91 Unspecified atrial fibrillation; E11.621 Type 2 diabetes mellitus with foot ulcer; L97.529 Non-pressure chronic ulcer of other part of left foot with unspecified severity; N18.1 Chronic kidney disease, stage 1; I87.2 Venous insufficiency (chronic) (peripheral); N31.9 Neuromuscular dysfunction of bladder, unspecified; J44.9 Chronic obstructive pulmonary disease, unspecified; M10.9 Gout, unspecified; E03.9 Hypothyroidism, unspecified; D64.9 Anemia, unspecified; K21.9 Gastro-esophageal reflux disease without esophagitis; L89.629 Pressure ulcer of left heel, unspecified stage; Z66 Do not resuscitate; Z88.0 Allergy status to penicillin

== ENCOUNTER 2016-12-16 18:06 | Emergency (ER) | payer MEDICARE, MEDICAID ==
[2016-12-16 18:07] VITALS: BMI 28.0
[2016-12-16 18:29] VITALS: BP 171/71
[2016-12-16] MEDS ORDERED: Sodium Chloride 0.9% 500 ML IV STA (18:49)
--- NOTE | 2016-12-16 19:01 | ED PDOC ---
Arrival/HPI - General Chief Complaint: Abnormal Labs Time Seen by Provider: 12/16/16 18:48 Historian: Patient - History of Present Illness Narrative History of Present Illness (Text): 12/16/16 18:48 Leta Lorenzo is an 81 year old female who presents to the emergency department complaining of low hemoglobin today. Patient denies any black stool, weakness, dizziness, shortness of breath, chest pain, dyspnea on exertion, or any other complaints at this time. PMD: Dr. Sparks Time/Duration: 4-6 hours Symptom Onset: Gradual Symptom Course: Unchanged Activities at Onset: Light Context: Home Past Medical History - Provider Review Nursing Documentation Reviewed: Yes - Infectious Disease Hx of Infectious Diseases: None - Tetanus Immunization Tetanus Immunization: Unknown - Reproductive Menopause: Yes - Cardiac Hx Cardiac Disorders: Yes (AFib) Hx Hypertension: Yes - Pulmonary Hx Respiratory Disorders: Yes Hx Chronic Obstructive Pulmonary Disease (COPD): Yes - Neurological Hx Neurological Disorder: Yes Hx Dementia: Yes - HEENT Hx HEENT Disorder: Yes Hx Cataracts: Yes (BILATERAL SURGERY) - Renal Hx Renal Disorder: Yes Hx Neurogenic Bladder: Yes - Endocrine/Metabolic Hx Endocrine Disorders: Yes Hx Diabetes Mellitus Type 2: Yes - Hematological/Oncological Hx Blood Disorders: Yes Hx Anemia: Yes - Integumentary Hx Dermatological Disorder: Yes (CELLULITIS,LEFT VENOUS STASIS ULCER) Other/Comment: cellulitis left ankle wound, left foot red and +2 edema, foul smelling dng noted to left ankle wound - Musculoskeletal/Rheumatological Hx Musculoskeletal Disorders: Yes Hx Falls: Yes - Gastrointestinal Hx Gastrointestinal Disorders: Yes Hx Gastroesophageal Reflux: Yes - Genitourinary/Gynecological Hx Genitourinary Disorders: Yes (URGENCY) - Psychiatric Hx Psychophysiologic Disorder: No Hx Substance Use: No - Past Surgical History Past Surgical History: Non-Contributing - Surgical History Other/Comment: LEFT FOOT SURGERY,PICC 01-09-14 - Anesthesia Hx Anesthesia Reactions: No Hx Malignant Hyperthermia: No - Suicidal Assessment Feels Threatened In Home Enviroment: No Family/Social History - Physician Review Nursing Documentation Reviewed: Yes Family/Social History: No Known Family HX Smoking Status: Never Smoked Hx Alcohol Use: No Hx Substance Use: No Hx Substance Use Treatment: No Allergies/Home Meds Allergies/Adverse Reactions: Allergies banana Allergy (Verified 12/16/16 18:27) RASH Influenza Virus Vaccines Allergy (Verified 12/16/16 18:27) RASH kiwi Allergy (Verified 12/16/16 18:27) RASH Penicillins Allergy (Verified 12/16/16 18:27) RASH pneumococcal vaccine Allergy (Verified 12/16/16 18:27) RASH strawberry Allergy (Verified 12/16/16 18:27) RASH Sulfa (Sulfonamide Antibiotics) Allergy (Verified 12/16/16 18:27) RASH tomato Allergy (Verified 12/16/16 18:27) RASH Home Medications: Home Meds Medication Instructions Recorded Confirmed Insulin Lispro Mix 75/25 [HumaLOG 5 units SC ACD 10/04/15 12/16/16 Mix 75/25] Protein Supplement [Prosource] 30 ml PO BID 10/04/15 12/16/16 Colchicine [Colcrys] 0.6 mg PO DAILY 11/27/16 12/16/16 Insulin Lispro Mix 75/25 [HumaLOG 10 units SC ACB 11/27/16 12/16/16 Mix 75/25] Sodium Bicarbonate 325 mg PO BID 11/27/16 12/16/16 Albuterol/Ipratropium [Duoneb 3 3 ml IH PRN PRN 12/16/16 12/16/16 MG/3 Ml-0.5 MG/3 Ml 3 Ml] Guaifenesin [Guaifenesin ER] 600 mg PO BID 12/16/16 12/16/16 Mag Oxide 400 400 mg PO DAILY 12/16/16 12/16/16 Pregabalin [Lyrica] 50 mg PO BID 12/16/16 12/16/16 Emma Shereen 1 tab PO DAILY 12/16/16 Physical Exam - Physical Exam Narrative Physical Exam (Text): - Review of Systems Constitutional: Normal. absent: Fatigue, Weight Change, Fevers Eyes: Normal ENT: Normal Respiratory: Normal absent: SOB, Cough, Sputum Cardiovascular: Normal absent: Chest pain, Palpitations, Syncope Gastrointestinal: Normal absent: Abdominal pain, Diarrhea, Nausea, Vomiting Genitourinary: Normal. absent: Dysuria, Frequency, Hematuria Musculoskeletal: Normal. absent: Arthralgias, Back Pain, Neck Pain Skin: Normal Neurological: Normal absent: Focal Weakness Endocrine: Normal Hemo/Lymphatic: Normal Psychiatric: Normal - Physical exam Patient appears age appropriate, speaking full sentences without difficulty - Systems Exam Head: Present: Atraumatic, Normocephalic Pupils: Present: PERRL Extraocular Muscles: Present: EOMI Conjunctiva: Present: Normal Mouth: Present: Moist Mucous Membranes Neck: Present: Normal Range of Motion. No: MIDLINE TENDERNESS, Paraspinal Tenderness Respiratory/Chest: Present: Clear to Auscultation, Good Air Exchange. No: Respiratory Distress, Accessory Muscle Use, Tachypnic Cardiovascular: Present: Regular Rate and Rhythm, Normal S1, S2, Peripheral Pulses Present. No: Murmurs Abdomen: Present: Normal Bowel Sounds, No: Tenderness, Peritoneal Signs, Rebound, Guarding, Distention Back: Present: Normal Inspection. No: Midline Tenderness, Paraspinal Tenderness Upper Extremity: Present: Normal Inspection. No: Cyanosis, Edema Lower Extremity: Bilateral Lower extremity erythema and edema. (patient states chronic) Neurological: Present: GCS=15, Speech Normal, cranial nerves II through XII fully intact with no cerebellar abnormality, neuro-sensory fully intact. No focal neurological deficits. Skin: Present: Warm, Dry, Normal Color. No: Rashes Lymphatic: Present: OX3, NI, NC Psychiatric: Present: Alert, Oriented x 3, Normal Insight, Normal Concentration Vital Signs Reviewed: Yes Vital Signs Temp Pulse Resp BP Pulse Ox 12/16/16 18:28 97.8 F 93 H 18 171/71 H 100 Temperature: Afebrile Blood Pressure: Hypertensive Pulse: Tachycardic Respiratory Rate: Normal Appearance: Positive for: Well-Appearing, Non-Toxic, Comfortable Pain Distress: None Mental Status: Positive for: Alert and Oriented X 3 Medical Decision Making ED Course and Treatment: 12/16/16 18:32 Impression: 81 year old female complaining of low hemoglobin today, states it was 7.1 at the [facility]. Denies any symptoms or acute complaints, states she feels well. Plan: -- EKG -- CHest X-ray -- Type and Screen -- Labs -- IV Fluids -- Reassess and disposition Prior Visits: Notes and results from previous visits were reviewed. Patient last seen in the ED on 11/27/16 for an infected wound in her leg. Patient was admitted to hospitalist care for further evaluation. Progress Notes: 12/16/16 21:13 pt's Hb 8.5 hemodynamically stable in no distress and denies complaints dw Dr. Sparks in detail, states to dc pt back to [facility] and he will follow closely outpatient pt states she feels comfortable being dc'd at this time pt's BP elevated, pt is asymptomatic Pt states she understands to return to the ER right away for new or worsening symptoms or for inability to f/u with PMD or specialist as instructed. Patient states that she fully agrees with and understands discharge instructions. States that she agrees with the plan and disposition. Verbalized and repeated discharge instructions and plan. I have given the patient opportunity to ask any additional questions. - Lab Interpretations Lab Results: 12/16/16 19:29 12/16/16 19:29 Lab Results 12/16/16 19:29: TIBC 226 L 12/16/16 19:29: PT 12.6 H, INR 1.17 H, APTT 34.8 H 12/16/16 19:29: Sodium 139, Potassium 5.0, Chloride 106, Carbon Dioxide 25, Anion Gap 13, BUN 23 H, Creatinine 1.1, Est GFR ( Amer) 57, Est GFR (Non- Af Amer) 47, Random Glucose 118 H, Calcium 7.9 L, Ferritin Pending, Total Bilirubin 0.7, AST 60 H, ALT 25, Alkaline Phosphatase 162 H, Lactate Dehydrogenase 838 H, Total Creatine Kinase 84, Troponin I 0.01 D, Total Protein 6.3, Albumin 2.6 L, Globulin 3.7, Albumin/Globulin Ratio 0.7 L 12/16/16 19:29: WBC 8.3 D, RBC 3.19 L, Hgb 8.5 L, Hct 28.2 L, MCV 88.4, MCH 26.6, MCHC 30.1 L, RDW 17.8 H, Plt Count 196, MPV 11.2 H, Gran % 46.4 L, Lymph % (Auto) 13.2 L, [place] % (Auto) 7.0 H, Eos % (Auto) 32.8 H, Baso % (Auto) 0.6, Gran # 3.82, Lymph # 1.1 L, [place] # 0.6, Eos # 2.7 H, Baso # 0.05 12/16/16 19:00: Blood Type A POSITIVE, Antibody Screen Negative, BBK History Checked Patient has bt - RAD Interpretation Radiology Orders: 12/16/16 18:49 CHEST PORTABLE [RAD] Stat - Medication Orders Current Medication Orders: Discontinued Medications Sodium Chloride (Sodium Chloride 0.9%) 500 mls @ 1,000 mls/hr IV .Q30M STA Stop: 12/16/16 19:18 Last Admin: 12/16/16 19:15 Dose: 1,000 mls/hr - Scribe Statement The provider has reviewed the documentation as recorded by the Lizibmariangel Christianson Provider Scribe Attestation: All medical record entries made by the Scribe were at my direction and personally dictated by me. I have reviewed the chart and agree that the record accurately reflects my personal performance of the history, physical exam, medical decision making, and the department course for this patient. I have also personally directed, reviewed, and agree with the discharge instructions and disposition. Disposition/Present on Arrival - Present on Arrival Any Indicators Present on Arrival: No History of DVT/PE: No History of Uncontrolled Diabetes: No Urinary Catheter: No History of Decub. Ulcer: No History Surgical Site Infection Following: None - Disposition Have Diagnosis and Disposition been Completed?: Yes Diagnosis: Anemia Disposition: HOME/ ROUTINE Disposition Time: 21:17 Patient Plan: Discharge Patient Problems: Current Active Problems Problem Status Onset Anemia Acute Condition: GOOD Discharge Instructions (ExitCare): Anemia (ED) Additional Instructions: PLEASE RETURN TO THE EMERGENCY DEPARTMENT FOR NEW OR WORSENING SYMPTOMS. RETURN RIGHT AWAY IF YOU CANNOT FOLLOW UP WITH YOUR PRIMARY CARE DOCTOR, CLINIC, OR SPECIALIST IN 1-2 DAYS. Referrals: Sonny Sparks MD [Primary Care Provider] - Follow up with primary Forms: [employer] (Yoruba)
[2016-12-16 19:44] LABS: BASO # 0.05 K/mm3 (0.0-2.0); BASO % 0.6 % (0.0-3.0); EOS # 2.7 (0.0-0.7); EOS % 32.8 % (1.5-5.0); GRAN # 3.82 (1.4-6.5); GRAN % 46.4 % (50.0-68.0); HEMOGLOBIN 8.5 g/dL (12.0-16.0); LYMPH # 1.1 (1.2-3.4); LYMPH % 13.2 % (22.0-35.0); MEAN CELL VOLUME 88.4 fl (80.0-105.0); MEAN CORPUSCULAR HEMOGLOBIN 26.6 pg (25.0-35.0); MEAN CORPUSCULAR HGB CONC 30.1 g/dl (31.0-37.0); MEAN PLATELET VOLUME 11.2 fl (7.0-11.0); MONO # 0.6 (0.1-0.6); PLATELET COUNT 196 10^3/uL (120.0-450.0); RBC 3.19 10^6/uL (3.5-6.1); RED CELL DISTRIBUTION WIDTH 17.8 % (11.5-14.5); WHITE BLOOD COUNT 8.3 10^3/ul (4.5-11.0)
[2016-12-16 19:56] LABS: INR 1.17 (0.93-1.08); PARTIAL THROMBOPLASTIN TIME 34.8 Seconds (23.7-30.8); PROTHROMBIN TIME 12.6 Seconds (9.9-11.8)
[2016-12-16 20:01] LABS: ALB/GLOB RATIO 0.7 (1.1-1.8); ALBUMIN 2.6 g/dL (3.0-4.8); CALCIUM 7.9 mg/dL (8.4-10.5)
[2016-12-16 20:21] LABS: TROPONIN I 0.01 ng/mL
[2016-12-16 21:43] VITALS: PULSE 89; RESP 17; TEMP 97.9
[2016-12-16 21:57] VITALS: O2SAT 98
--- NOTE | 2016-12-17 09:13 | RAD ---
HISTORY: cough COMPARISON: 11/28/2016 FINDINGS: LUNGS: No active pulmonary disease. PLEURA: No significant pleural effusion identified, no pneumothorax apparent. CARDIOVASCULAR: Mild cardiomegaly OSSEOUS STRUCTURES: No significant abnormalities. VISUALIZED UPPER ABDOMEN: Normal. OTHER FINDINGS: Dual lead pacemaker IMPRESSION: No active disease.
--- NOTE | 2016-12-17 11:51 | CARD ---
APPROVED REPORT EKG Measurement Heart [id number] <Conclusion> Demand pacemaker, interpretation is based on intrinsic rhythm Undetermined rhythm Right bundle branch block T wave abnormality, consider lateral ischemia Abnormal ECG
== END 2016-12-16 21:57 | disposition home or self-care (01) ==
LOC: ED 18:06
DX: D64.9 Anemia, unspecified (principal); I10 Essential (primary) hypertension; I48.91 Unspecified atrial fibrillation; F03.90 Unspecified dementia, unspecified severity, without behavioral disturbance, psychotic disturbance, mood disturbance, and anxiety; E11.9 Type 2 diabetes mellitus without complications
CPT/HCPCS: 71010; 80053; 82550; 82728; 83550; 83615; 84484; 85025; 85610; 85730; 86850; 86900; 93005; 99282; J7040

== ENCOUNTER 2016-12-31 11:19 | Observation (INO) | payer MEDICARE, MEDICAID ==
[2016-12-31 11:27] VITALS: BMI 30.5
--- NOTE | 2016-12-31 11:35 | ED PDOC ---
Arrival/HPI - General Time Seen by Provider: 12/31/16 11:26 Historian: Patient, Assisted (documentation) - History of Present Illness Narrative History of Present Illness (Text): 12/31/16 11:32 A 81 year old female, whose past medical history includes diabetes, hypertension , COPD and atrial fibrillation, was sent into the emergency department by [facility] for anemia. Patient had blood drawn yesterday which showed a hemoglobin of 7.2. Patient currently denies any pain or discomfort. Patient denies any fatigue, fever, chills, nausea, vomiting, abdominal pain, urinary symptoms, hematochezia, chest pain, shortness of breath, cough, headache, dizziness, vision changes or any other complaints. PMD: Dr. Sparks Time/Duration: Prior to Arrival Context: Home ([facility]) Past Medical History - Provider Review Nursing Documentation Reviewed: Yes - Infectious Disease Hx of Infectious Diseases: None - Tetanus Immunization Tetanus Immunization: Unknown - Cardiac Hx Cardiac Disorders: Yes (AFib) Hx Hypertension: Yes - Pulmonary Hx Respiratory Disorders: Yes Hx Chronic Obstructive Pulmonary Disease (COPD): Yes - Neurological Hx Neurological Disorder: Yes Hx Dementia: Yes - HEENT Hx HEENT Disorder: Yes Hx Cataracts: Yes (BILATERAL SURGERY) - Renal Hx Renal Disorder: Yes Hx Neurogenic Bladder: Yes - Endocrine/Metabolic Hx Endocrine Disorders: Yes Hx Diabetes Mellitus Type 2: Yes - Hematological/Oncological Hx Blood Disorders: Yes Hx Anemia: Yes - Integumentary Hx Dermatological Disorder: Yes (CELLULITIS,LEFT VENOUS STASIS ULCER) Other/Comment: cellulitis left ankle wound, left foot red and +2 edema, foul smelling dng noted to left ankle wound - Musculoskeletal/Rheumatological Hx Musculoskeletal Disorders: Yes Hx Falls: Yes - Gastrointestinal Hx Gastrointestinal Disorders: Yes Hx Gastroesophageal Reflux: Yes - Genitourinary/Gynecological Hx Genitourinary Disorders: Yes (URGENCY) - Psychiatric Hx Psychophysiologic Disorder: No Hx Substance Use: No - Past Surgical History Past Surgical History: Non-Contributing - Surgical History Other/Comment: LEFT FOOT SURGERY,PICC 01-09-14 - Anesthesia Hx Anesthesia Reactions: No Hx Malignant Hyperthermia: No - Suicidal Assessment Feels Threatened In Home Enviroment: No Family/Social History - Physician Review Nursing Documentation Reviewed: Yes Family/Social History: No Known Family HX Smoking Status: Never Smoked Hx Alcohol Use: No Hx Substance Use: No Hx Substance Use Treatment: No Allergies/Home Meds Allergies/Adverse Reactions: Allergies banana Allergy (Verified 12/16/16 18:27) RASH Influenza Virus Vaccines Allergy (Verified 12/16/16 18:27) RASH kiwi Allergy (Verified 12/16/16 18:27) RASH Penicillins Allergy (Verified 12/16/16 18:27) RASH pneumococcal vaccine Allergy (Verified 12/16/16 18:27) RASH strawberry Allergy (Verified 12/16/16 18:27) RASH Sulfa (Sulfonamide Antibiotics) Allergy (Verified 12/16/16 18:27) RASH tomato Allergy (Verified 12/16/16 18:27) RASH Home Medications: Home Meds Medication Instructions Recorded Confirmed Insulin Lispro Mix 75/25 [HumaLOG 5 units SC ACD 10/04/15 12/16/16 Mix 75/25] Protein Supplement [Prosource] 30 ml PO BID 10/04/15 12/16/16 Colchicine [Colcrys] 0.6 mg PO DAILY 11/27/16 12/16/16 Insulin Lispro Mix 75/25 [HumaLOG 10 units SC ACB 11/27/16 12/16/16 Mix 75/25] Sodium Bicarbonate 325 mg PO BID 11/27/16 12/16/16 Albuterol/Ipratropium [Duoneb 3 3 ml IH PRN PRN 12/16/16 12/16/16 MG/3 Ml-0.5 MG/3 Ml 3 Ml] Guaifenesin [Guaifenesin ER] 600 mg PO BID 12/16/16 12/16/16 Mag Oxide 400 400 mg PO DAILY 12/16/16 12/16/16 Pregabalin [Lyrica] 50 mg PO BID 12/16/16 12/16/16 Emma Shereen 1 tab PO DAILY 12/16/16 Review of Systems - Physician Review All systems were reviewed & negative as marked: Yes - Review of Systems Constitutional: Normal. absent: Fatigue, Fevers, Night Sweats Eyes: absent: Vision Changes Respiratory: absent: SOB, Cough Cardiovascular: absent: Chest Pain Gastrointestinal: absent: Abdominal Pain, Nausea, Vomiting, Hematochezia Genitourinary Female: absent: Dysuria, Frequency, Hematuria, Urine Output Changes Neurological: absent: Headache, Dizziness Physical Exam Vital Signs Reviewed: Yes Vital Signs Temp Pulse Resp BP Pulse Ox 12/31/16 16:02 98.3 F 67 16 138/68 12/31/16 15:00 70 18 138/68 99 12/31/16 14:42 98.2 F 67 14 137/63 12/31/16 13:57 98.5 F 66 16 133/70 12/31/16 13:27 97.7 F 70 16 141/57 L 12/31/16 13:26 97.7 F 73 16 141/57 L 95 12/31/16 11:26 98.0 F 79 19 140/64 94 L Temperature: Afebrile Blood Pressure: Normal Pulse: Regular Respiratory Rate: Normal Appearance: Positive for: Well-Appearing, Non-Toxic, Comfortable Pain Distress: None Mental Status: Positive for: Alert and Oriented X 3 - Systems Exam Head: Present: Atraumatic, Normocephalic Pupils: Present: PERRL Conjunctiva: Present: Other (Mild conjunctival pallor) Mouth: Present: Moist Mucous Membranes, Other Pharnyx: No: ERYTHEMA, EXUDATE, TONSILS ENLARGED Neck: Present: Normal Range of Motion Respiratory/Chest: Present: Clear to Auscultation, Good Air Exchange. No: Respiratory Distress, Accessory Muscle Use Cardiovascular: Present: Regular Rate and Rhythm, Normal S1, S2. No: Murmurs Abdomen: Present: Normal Bowel Sounds. No: Tenderness, Distention, Peritoneal Signs Back: Present: Normal Inspection Upper Extremity: Present: Normal Inspection. No: Cyanosis, Edema Lower Extremity: Present: Edema (trace edema in LLE), NORMAL PULSES, Other (LLE with lymphedematous changes, wrapped in dressing due to ulcer). No: CALF TENDERNESS Neurological: Present: GCS=15, CN II-XII Intact, Speech Normal Skin: Present: Warm, Dry, Normal Color. No: Rashes Psychiatric: Present: Alert, Oriented x 3, Normal Insight, Normal Concentration Medical Decision Making ED Course and Treatment: 12/31/16 11:32 Impression: A 81 year old female sent in for anemia. Blood work drawn yesterday which showed a hemoglobin of 7.2 Plan: -- Labs -- EKG -- Reassess and disposition Prior Visits: Notes and results from previous visits were reviewed. Patient last seen in the ED on 12/16/16 for anemia. 12/31/16 16:09 Patient with noted history with chronic anemia; Hgb of 8.0 today is slightly below baseline. Given one unit PRBC - will dc back to [place]. Spoke with Dr. Sparks's office; he is out, but left message to be conveyed to him. She continues to be asymptomatic - ok for dc. - Lab Interpretations I have reviewed the lab results: Yes ED OBSERVATION Discharge: Yes Date of observation admission: 12/31/16 Time of observation admission: 11:30 - Observation admission statement Patient is being placed in observation because:: Anemia - Goals of Observation Goals of observation are:: Monitor and treat patients symptoms - Progress Note Progress Note: 12/31/16 11:30 Patient sent in with a hemoglobin of 7.2. Labs ordered. EKG shows NSR at 95 BPM with RBBB, axis deviation, QRS 136, QTc 537, unchanged from prior on 11/27/16. Interpreted by me. 12/31/16 13:13 Patient continues to be asymptomatic. Hgb lower than 8, below baseline. Plan is to transfuse 1 unit of RBC. Patient aware of and in agreement with plan. 12/31/16 14:46 Patient is asymptomatic at this time and comfortable. She is receiving blood. 12/31/16 16:12 Patient continues to be asymptomatic at rest; she finished the unit PRBC transfusion - ok for d/c back to [place]. - Scribe Statement The provider has reviewed the documentation as recorded by the Dione White Provider Scribe Attestation: All medical record entries made by the Scribe were at my direction and personally dictated by me. I have reviewed the chart and agree that the record accurately reflects my personal performance of the history, physical exam, medical decision making, and the department course for this patient. I have also personally directed, reviewed, and agree with the discharge instructions and disposition. Disposition/Present on Arrival - Present on Arrival Any Indicators Present on Arrival: No History of DVT/PE: No History of Uncontrolled Diabetes: No Urinary Catheter: No History Surgical Site Infection Following: None - Disposition Have Diagnosis and Disposition been Completed?: Yes Diagnosis: Anemia Disposition: TRANSF TO SNF Disposition Time: 16:15 Patient Plan: Transfer To ([place]) Patient Problems: Current Active Problems Problem Status Onset Anemia Acute Condition: GOOD
[2016-12-31 11:55] LABS: BASO # 0.03 K/mm3 (0.0-2.0); BASO % 0.5 % (0.0-3.0); EOS # 0.4 (0.0-0.7); EOS % 6.4 % (1.5-5.0); GRAN # 3.49 (1.4-6.5); GRAN % 61.6 % (50.0-68.0); HEMATOCRIT 26.5 % (36.0-48.0); LYMPH # 1.3 (1.2-3.4); LYMPH % 22.1 % (22.0-35.0); MEAN CELL VOLUME 89.2 fl (80.0-105.0); MEAN CORPUSCULAR HEMOGLOBIN 26.9 pg (25.0-35.0); MEAN CORPUSCULAR HGB CONC 30.2 g/dl (31.0-37.0); MEAN PLATELET VOLUME 10.7 fl (7.0-11.0); MONO # 0.5 (0.1-0.6); MONO % 9.4 % (1.0-6.0); RED CELL DISTRIBUTION WIDTH 18.5 % (11.5-14.5); WHITE BLOOD COUNT 5.7 10^3/ul (4.5-11.0)
[2016-12-31 12:02] LABS: ALB/GLOB RATIO 0.7 (1.1-1.8); BILIRUBIN,TOTAL 0.5 mg/dL (0.2-1.3); CALCIUM 7.8 mg/dL (8.4-10.5); POTASSIUM 4.2 mmol/L (3.6-5.0); TOTAL PROTEIN 6.7 g/dL (5.8-8.3)
[2016-12-31 12:04] LABS: INR 1.23 (0.93-1.08); PARTIAL THROMBOPLASTIN TIME 32.8 Seconds (23.7-30.8)
[2016-12-31 12:15] LABS: TROPONIN I 0.01 ng/mL
[2016-12-31 15:15] VITALS: BP 138/68
[2016-12-31 16:03] VITALS: PULSE 67; RESP 16; TEMP 98.3
[2016-12-31 16:55] VITALS: O2SAT 100
--- NOTE | 2016-12-31 17:39 | CARD ---
APPROVED REPORT EKG Measurement Heart [id number] 134P [id number] <Conclusion> Normal sinus rhythm Right bundle branch block Abnormal ECG
== END 2016-12-31 16:17 | disposition home or self-care (01) ==
LOC: ED 11:19 → EROBSV 11:30
PROVIDERS: ADMIT Emergency Medicine; ATTEND Emergency Medicine
DX: D64.9 Anemia, unspecified (principal); I10 Essential (primary) hypertension; I48.91 Unspecified atrial fibrillation; E11.9 Type 2 diabetes mellitus without complications; F03.90 Unspecified dementia, unspecified severity, without behavioral disturbance, psychotic disturbance, mood disturbance, and anxiety
CPT/HCPCS: 36430; 80053; 82150; 82550; 83615; 83690; 84484; 85025; 85610; 85730; 86850; 86900; 86920; 93005; 99283; G0378; P9016

== ENCOUNTER 2017-02-17 20:39 | Inpatient (IN) | payer OTHER, MEDICARE, MEDICAID ==
[2017-02-08 19:49] VITALS: BMI 28.4
[2017-02-17] MEDS ORDERED: DiphenhydrAMINE 50 mg/ml Inj IVP PRN (21:38)
[2017-02-17] MEDS ORDERED: Sodium Chloride 0.9% 1,000 ML IV SCH (21:45)
[2017-02-17] MEDS ORDERED: Meropenem 500 MG in Sodium Chloride 0.9% 100 ML IVPB SCH (22:00)
[2017-02-17] MEDS ORDERED: Vancomycin 1gm in NS 250ml 1 GM/250 ML BAG IVPB SCH (22:00)
[2017-02-17] MEDS: Insulin Reg-LOW-Coverage SC SCH (23:01)
[2017-02-18] MEDS: Albuterol-Ipratrop 3 mg / 0.5 (3 ml) UD IH SCH ×10 (01:35→20:33)
[2017-02-18] MEDS: Insulin Lispro (humaLOG) MIX 75/25(10 ml) SC SCH ×2 (07:01→17:23)
[2017-02-18] MEDS: Insulin Reg-LOW-Coverage SC SCH ×4 (07:02→21:50)
[2017-02-18 08:04] LABS: BASO # 0.03 K/mm3 (0.0-2.0); BASO % 0.6 % (0.0-3.0); EOS # 0.4 (0.0-0.7); EOS % 6.8 % (1.5-5.0); GRAN # 3.86 (1.4-6.5); GRAN % 71.2 % (50.0-68.0); LYMPH # 0.8 (1.2-3.4); LYMPH % 13.8 % (22.0-35.0); MEAN CELL VOLUME 82.2 fl (80.0-105.0); MEAN CORPUSCULAR HEMOGLOBIN 23.8 pg (25.0-35.0); MEAN PLATELET VOLUME 10.6 fl (7.0-11.0); MONO # 0.4 (0.1-0.6); MONO % 7.6 % (1.0-6.0); RED CELL DISTRIBUTION WIDTH 18.3 % (11.5-14.5); WHITE BLOOD COUNT 5.4 10^3/ul (4.5-11.0)
[2017-02-18 08:09] LABS: BLOOD UREA NITROGEN 12 mg/dL (7-21); CALCIUM 7.9 mg/dL (8.4-10.5); CARBON DIOXIDE 21 mmol/L (21-33); CHLORIDE 117 mmol/L (95-110); GFR AFRICAN-AMERICAN > 60; GLUCOSE,RANDOM 78 mg/dL (70-110); POTASSIUM 3.8 mmol/L (3.6-5.0); SODIUM 142 mmol/L (132-148)
[2017-02-18] MEDS: Multivitamin Vitamin B Complex (Nephro-Vite) Tab PO SCH (08:37)
[2017-02-18] MEDS: Multivitamin Therapeutic Tab PO SCH (08:37)
[2017-02-18] MEDS ORDERED: Enoxaparin 30 mg Syringe SC SCH (10:00)
--- NOTE | 2017-02-18 10:29 | CP.PCM.HP ---
<Braxton Jeffries - Last Filed: 02/18/17 10:17> History of Present Illness - History of Present Illness History of Present Illness: Subjective: Patient is a 81 y/o F with a past medical history of diabetes mellitus, atrial fib on eliquis, hypothyroidism, chronic left legs swelling, cellulitis, and COPD who was admitted for evaluation and treatment for sepsis secondary to left lower extremity wound. With the use of physical examinations, lab work, and imaging the patient was diagnosed with and treated for left lower extremity ulcer, sepsis, diabetes, atrial fibrillation, and COPD. During their hospital stay the patient was seen by cardiology, podiatry, infectious disease, critical care, and general surgery whose recommendations were both appreciated and utilized in the care for this patient. She also underwent a tibia/fibula xray which was reviewed, appreciated, and utilized in the management of the patients clinical course. During their hospital stay the patient underwent meropenem densitization. It was determined that the best course of action is to treat the left lower extremity wound with IV antibiotics and if unimproved consider amputation. Patient was treated with duonebs, anticogulation, insulin, antibiotics, antihypertensives amongst other empiric/therapeutic medications. She was moved to the TCU unit for improving deconditioned state, continue IV antibiotics, and wound management as per surgery. PMH: Diabetes Mellitus, A fib, hypothyroidism, chronic left legs swelling and cellulitis, and COPD PSH: ICD placement SocHx: Pt denies smoking, pt denies etoh, pt denies illicits. Uses a wheelchair. FamHx: DM Allergies: Flu vaccine, banana, kiwi, penicillin. See chart for full list Medications: Reviewed, as per skilled nursing chart. Physical Examination: - Constitutional Appears: Non-toxic, No Acute Distress - Head Exam Head Exam: ATRAUMATIC, NORMAL INSPECTION, NORMOCEPHALIC - ENT Exam ENT Exam: Mucous Membranes Moist, Normal Exam - Respiratory Exam Respiratory Exam: Clear to Ausculation Bilateral, NORMAL BREATHING PATTERN. absent: Rales, Rhonchi, Wheezes - Cardiovascular Exam Cardiovascular Exam: RRR, +S1, +S2 - GI/Abdominal Exam GI & Abdominal Exam: Soft, Normal Bowel Sounds. absent: Tenderness - Extremities Exam Extremities Exam: Pedal Edema Additional comments: Left lower extremity bandaged. Dressing clean, dry, and intact. - Neurological Exam Neurological Exam: Patient is awake, alert, responds to verbal stimuli, answers questions appropriately, follows commands, and moves extremities past midline - Psychiatric Exam Psychiatric exam: Normal Affect, Normal Mood - Skin Additional comments: Left foot is draining with necrotic tissue. Sacral decub noted Assessment and Plan: Patient is a 81 y/o F with PMH of diabetes mellitus, a fib on eliquis, hypothyroidism, chronic left legs swelling, cellulitis, and COPD who was recently discharged from the hospital to the TCU after being treated for her left lower extremity cellulitis and UTI. Sepsis secondary to LLE Cellulitis/UTI - ID on board- appreciate recs- desensitization on meropenem done, amputation with short term aminoglycoside, c/w meropenem and vancomycin - NS @ 100 cc/hr - Foot x-ray shows signs of osteomyelitis - Wound Culture reveals klebsiella - Procal noted to be 0.25 - Podiatry consulted, Dr. Gilbert- recommedations appreciated - Surgery consulted, Dr. Renee- recommedations appreciated, as per surgery resident- surgical option may not be offered after desensitization completed, initial plan to treat conservatively with Abx . If unsuccessful, will plan for OR BKA poss. AKA - Cardiology consulted Dr. Salazar- for cardiac clearance in anticipation of surgery- approved for surgery IV Access Difficulty - midline could not be placed - PICC line to be placed by Dr. Guzman - morning eliquis held A-fib - RVR noted in low 100s- c/w lopressor - Currently rate and rhythm controlled- c/w lopressor - hold eliquis as patient will need PICC line placement today DM - continue current insulin regiment, Blood glucose trend noted - ISS to cover - Hgba1c noted COPD - Duonebs q4h prn - Singulair Sacral Decubitus Ulcer - likely stage 1/2 - c/w zinc, multivitamin, and vitamin C supplements - surgery is consulted- appreciate recs Deconditioning, Gait Abnormality - PT consulted- appreciate recommendations PPX - Pepcid - lovenox Patient seen, case discussed with, and plan approved by attending physician, Dr. Davey. Present on Admission - Present on Admission Any Indicators Present on Admission: Yes Past Patient History - Infectious Disease Hx of Infectious Diseases: None - Tetanus Immunizations Tetanus Immunization: Unknown - Past Medical History & Family History Past Medical History?: Yes - Past Social History Smoking Status: Never Smoked - CARDIAC Hx Cardiac Disorders: Yes (AFib) Hx Hypertension: Yes - PULMONARY Hx Respiratory Disorders: Yes Hx Chronic Obstructive Pulmonary Disease (COPD): Yes - NEUROLOGICAL Hx Neurological Disorder: Yes Hx Dementia: Yes - HEENT Hx HEENT Problems: Yes Hx Cataracts: Yes (BILATERAL SURGERY) - RENAL Hx Chronic Kidney Disease: Yes Hx Neurogenic Bladder: Yes - ENDOCRINE/METABOLIC Hx Endocrine Disorders: Yes Hx Diabetes Mellitus Type 2: Yes - HEMATOLOGICAL/ONCOLOGICAL Hx Blood Disorders: Yes Hx Anemia: Yes - INTEGUMENTARY Hx Dermatological Problems: Yes (CELLULITIS,LEFT VENOUS STASIS ULCER) Other/Comment: cellulitis left ankle wound, left foot red and +2 edema, foul smelling dng noted to left ankle wound - MUSCULOSKELETAL/RHEUMATOLOGICAL Hx Falls: Yes - GASTROINTESTINAL Hx Gastrointestinal Disorders: Yes Hx Gastroesophageal Reflux: Yes - GENITOURINARY/GYNECOLOGICAL Hx Reproductive Disorders: No - PSYCHIATRIC Hx Psychophysiologic Disorder: No Hx Substance Use: No - SURGICAL HISTORY Other/Comment: LEFT FOOT SURGERY,PICC 01-09-14 - ANESTHESIA Hx Anesthesia: Yes Hx Anesthesia Reactions: No Hx Malignant Hyperthermia: No Meds Allergies/Adverse Reactions: Allergies Allergy/AdvReac Type Severity Reaction Status Date / Time banana Allergy RASH Verified 02/08/17 14:47 Influenza Virus Vaccines Allergy RASH Verified 02/08/17 14:47 kiwi Allergy RASH Verified 02/08/17 14:47 Penicillins Allergy RASH Verified 02/08/17 14:47 pneumococcal vaccine Allergy RASH Verified 02/08/17 14:47 strawberry Allergy RASH Verified 02/08/17 14:47 Sulfa (Sulfonamide Allergy RASH Verified 02/08/17 14:47 Antibiotics) tomato Allergy RASH Verified 02/08/17 14:47 Results - Vital Signs Recent Vital Signs: Last Vital Signs Temp Pulse 106 H 02/18/17 08:36 Resp BP 136/81 02/18/17 08:36 Pulse Ox - Labs Result Diagrams: 02/18/17 07:57 02/18/17 07:57 Labs: Laboratory Results - last 24 hr 02/17/17 02/18/17 02/18/17 22:07 05:14 07:57 WBC 5.4 RBC 3.53 Hgb 8.4 L Hct 29.0 L MCV 82.2 MCH 23.8 L MCHC 29.0 L RDW 18.3 H Plt Count 214 MPV 10.6 Gran % 71.2 H Lymph % (Auto) 13.8 L [place] % (Auto) 7.6 H Eos % (Auto) 6.8 H Baso % (Auto) 0.6 Gran # 3.86 Lymph # 0.8 L [place] # 0.4 Eos # 0.4 Baso # 0.03 Sodium Potassium Chloride Carbon Dioxide Anion Gap BUN Creatinine Est GFR ( Amer) Est GFR (Non-Af Amer) POC Glucose (mg/dL) 94 82 Random Glucose Calcium 02/18/17 07:57 WBC RBC Hgb Hct MCV MCH MCHC RDW Plt Count MPV Gran % Lymph % (Auto) [place] % (Auto) Eos % (Auto) Baso % (Auto) Gran # Lymph # [place] # Eos # Baso # Sodium 142 Potassium 3.8 Chloride 117 H Carbon Dioxide 21 Anion Gap 8 L BUN 12 Creatinine 0.9 Est GFR ( Amer) > 60 Est GFR (Non-Af Amer) 60 POC Glucose (mg/dL) Random Glucose 78 Calcium 7.9 L <Don Davey - Last Filed: 02/18/17 16:44> Results - Vital Signs Recent Vital Signs: Last Vital Signs Temp 97.3 F L 02/18/17 10:00 Pulse 107 H 02/18/17 10:00 Resp 20 02/18/17 10:00 BP 143/78 02/18/17 10:00 Pulse Ox 96 02/18/17 10:00 - Labs Result Diagrams: 02/18/17 07:57 02/18/17 07:57 Labs: Laboratory Results - last 24 hr 02/17/17 02/18/17 02/18/17 22:07 05:14 07:57 WBC 5.4 RBC 3.53 Hgb 8.4 L Hct 29.0 L MCV 82.2 MCH 23.8 L MCHC 29.0 L RDW 18.3 H Plt Count 214 MPV 10.6 Gran % 71.2 H Lymph % (Auto) 13.8 L [place] % (Auto) 7.6 H Eos % (Auto) 6.8 H Baso % (Auto) 0.6 Gran # 3.86 Lymph # 0.8 L [place] # 0.4 Eos # 0.4 Baso # 0.03 Sodium Potassium Chloride Carbon Dioxide Anion Gap BUN Creatinine Est GFR ( Amer) Est GFR (Non-Af Amer) POC Glucose (mg/dL) 94 82 Random Glucose Calcium 02/18/17 07:57 WBC RBC Hgb Hct MCV MCH MCHC RDW Plt Count MPV Gran % Lymph % (Auto) [place] % (Auto) Eos % (Auto) Baso % (Auto) Gran # Lymph # [place] # Eos # Baso # Sodium 142 Potassium 3.8 Chloride 117 H Carbon Dioxide 21 Anion Gap 8 L BUN 12 Creatinine 0.9 Est GFR ( Amer) > 60 Est GFR (Non-Af Amer) 60 POC Glucose (mg/dL) Random Glucose 78 Calcium 7.9 L Attending/Attestation - Attestation I have personally seen and examined this patient.: Yes I have fully participated in the care of the patient.: Yes I have reviewed all pertinent clinical information: Yes Notes (Text): 02/18/17 16:40 Attending note; Patient seen and examined with resident in Tcu. Patient is a 81 year female with history of IDDM, afib hypothyroidism, chronic left leg swelling and copd who presented with LLE cellulitis and acute calcaneal osteomyelitis and ESBL UTI. Patient underwent desensitization and is currently on meropenem and vancomycin. Case discussed with surgery in detail . Recommending IV anti-biotics and aggressive wound care. Patient choose to continue anti-biotics for long-term. Patient will decide about amputation if she is not responding to wound care and long-term anti- biotics. poor IV access; PICC line team informed. Continue local wound care. Upon discharge the patient will follow-up with PMD .
[2017-02-18] MEDS: Magnesium Oxide 400 mg Tab UD PO SCH (11:52)
--- NOTE | 2017-02-18 11:56 | CP.PCM.DIS ---
Addendum entered and electronically signed by Nichole Lyle DO 02/18/17 16: 33: Dressing changes should be done with Kerlix - wet kerlix with saline flush and place only over the wound on the dorsal foot, avoiding intact skin in between, then wet kerlix with betadine and place only over the wound on heel, again avoiding intact skin. Wrap entire foot/ankle with dry kerlix. Original Note: <Braxton Jeffries - Last Filed: 02/18/17 12:07> Provider - Provider Date of Admission: 02/17/17 20:39 Attending physician: Slava Chavira MD Primary care physician: Sonny Sparks MD Time Spent in preparation of Discharge (in minutes): 45 Diagnosis - Discharge Diagnosis (1) Anemia Status: Acute Priority: Medium (2) Atrial fibrillation Status: Acute Priority: Medium (3) Diabetic leg ulcer Status: Acute Priority: High (4) Urinary tract infection Status: Acute Priority: Medium (5) COPD (chronic obstructive pulmonary disease) Status: Chronic Priority: Medium (6) Cellulitis of leg Status: Chronic Priority: High (7) Diabetes Status: Chronic Priority: Medium Hospital Course - Lab Results Lab Results: Most Recent Lab Values WBC 5.4 10^3/ul (4.5-11.0) 02/18/17 07:57 RBC 3.53 10^6/uL (3.5-6.1) 02/18/17 07:57 Hgb 8.4 g/dL (12.0-16.0) L 02/18/17 07:57 Hct 29.0 % (36.0-48.0) L 02/18/17 07:57 MCV 82.2 fl (80.0-105.0) 02/18/17 07:57 MCH 23.8 pg (25.0-35.0) L 02/18/17 07:57 MCHC 29.0 g/dl (31.0-37.0) L 02/18/17 07:57 RDW 18.3 % (11.5-14.5) H 02/18/17 07:57 Plt Count 214 10^3/uL (120.0-450.0) 02/18/17 07:57 MPV 10.6 fl (7.0-11.0) 02/18/17 07:57 Gran % 71.2 % (50.0-68.0) H 02/18/17 07:57 Lymph % (Auto) 13.8 % (22.0-35.0) L 02/18/17 07:57 [place] % (Auto) 7.6 % (1.0-6.0) H 02/18/17 07:57 Eos % (Auto) 6.8 % (1.5-5.0) H 02/18/17 07:57 Baso % (Auto) 0.6 % (0.0-3.0) 02/18/17 07:57 Gran # 3.86 (1.4-6.5) 02/18/17 07:57 Lymph # 0.8 (1.2-3.4) L 02/18/17 07:57 [place] # 0.4 (0.1-0.6) 02/18/17 07:57 Eos # 0.4 (0.0-0.7) 02/18/17 07:57 Baso # 0.03 K/mm3 (0.0-2.0) 02/18/17 07:57 Sodium 142 mmol/L (132-148) 02/18/17 07:57 Potassium 3.8 mmol/L (3.6-5.0) 02/18/17 07:57 Chloride 117 mmol/L (95-110) H 02/18/17 07:57 Carbon Dioxide 21 mmol/L (21-33) 02/18/17 07:57 Anion Gap 8 (10-20) L 02/18/17 07:57 BUN 12 mg/dL (7-21) 02/18/17 07:57 Creatinine 0.9 mg/dL (0.7-1.2) 02/18/17 07:57 Est GFR ( Amer) > 60 02/18/17 07:57 Est GFR (Non-Af Amer) 60 02/18/17 07:57 POC Glucose (mg/dL) 82 mg/dL (65-110) 02/18/17 05:14 Random Glucose 78 mg/dL (70-110) 02/18/17 07:57 Calcium 7.9 mg/dL (8.4-10.5) L 02/18/17 07:57 - Hospital Course Hospital Course: Patient is a 81 y/o F with a past medical history of diabetes mellitus, atrial fib on eliquis, hypothyroidism, chronic left legs swelling, cellulitis, and COPD who was admitted for evaluation and treatment for sepsis secondary to left lower extremity wound. With the use of physical examinations, lab work, and imaging the patient was diagnosed with and treated for left lower extremity ulcer, sepsis, diabetes, atrial fibrillation, and COPD. During their hospital stay the patient was seen by cardiology, podiatry, infectious disease, critical care, and general surgery whose recommendations were both appreciated and utilized in the care for this patient. She also underwent a tibia/fibula xray which was reviewed, appreciated, and utilized in the management of the patients clinical course. During their hospital stay the patient underwent meropenem densitization. It was determined that the best course of action is to treat the left lower extremity wound with IV antibiotics and if unimproved consider amputation. Patient was treated with duonebs, anticogulation, insulin, antibiotics, antihypertensives amongst other empiric/therapeutic medications. She was moved to the TCU unit for improving deconditioned state, continue IV antibiotics, and wound management as per surgery. There was an issue with the patient's insurance and will be transferred to subacute rehab after receiving her PICC line. At this time the patient is medically stable for discharge. Patient understands and appreciates discharge plan. Patient instructed to follow up with primary care physicians and referrals within three to five days from discharge. Furthermore, the patient is instructed to take medications as prescribed and to return to emergency room for evaluation of intractable headache, fever, chills, dizziness, chest pain, shortness of breath, abdominal pain, nausea, vomiting, diarrhea, constipation, and urinary symptoms. This is a brief summary of the patients hospital course. Please see patient chart for full details. Discharge Exam - Additional Findings Additional findings: - Constitutional Appears: Non-toxic, No Acute Distress - Head Exam Head Exam: ATRAUMATIC, NORMAL INSPECTION, NORMOCEPHALIC - ENT Exam ENT Exam: Mucous Membranes Moist, Normal Exam - Respiratory Exam Respiratory Exam: Clear to Ausculation Bilateral, NORMAL BREATHING PATTERN. absent: Rales, Rhonchi, Wheezes - Cardiovascular Exam Cardiovascular Exam: RRR, +S1, +S2 - GI/Abdominal Exam GI & Abdominal Exam: Soft, Normal Bowel Sounds. absent: Tenderness - Extremities Exam Extremities Exam: Pedal Edema Additional comments: Left lower extremity bandaged. Dressing clean, dry, and intact. - Neurological Exam Neurological Exam: Patient is awake, alert, responds to verbal stimuli, answers questions appropriately, follows commands, and moves extremities past midline - Psychiatric Exam Psychiatric exam: Normal Affect, Normal Mood - Skin Additional comments: Left foot is draining with necrotic tissue. Sacral decub noted Discharge Plan - Discharge Medications Prescriptions: Meropenem 500 mg IV Q12 #56 vial - Follow Up Plan Condition: GOOD Disposition: HOME/ ROUTINE Patient education suggested?: Yes Instructions: Heart Failure (DC), Urinary Tract Infection in Women (DC), Urinary Tract Infection in Women (GEN), Peripherally Inserted Central Catheters and Midline Catheters (DC), Sepsis (GEN), Extended Spectrum Beta Lactamase (GEN) Additional Instructions: Patient Instructions: Take medications as prescribed. Follow up with PMD Dr. Sparks. within three to five days from discharge. Continue meropenem 500 IV BID via PIcc for 4 weeks. weekly cbc,cmp, esr, crp. Follow up with podiarty daily for wound care. Follow up with ID. Follow up with Surgery DR. Zamorano in 1 week at his office. Return to the emergency room for evaluation of intractable headache, fever, chills, dizziness, chest pain, shortness of breath, abdominal pain, nausea, vomiting, diarrhea, constipation, and urinary symptoms. Referrals: Sonny Sparks MD [Primary Care Provider] - Conrad Zamorano MD [Staff Provider] - <Don Davey - Last Filed: 02/19/17 15:42> Provider - Provider Date of Admission: 02/17/17 20:39 Attending physician: Slava Chavira MD Primary care physician: Sonny Sparks MD Hospital Course - Lab Results Lab Results: Most Recent Lab Values WBC 5.4 10^3/ul (4.5-11.0) 02/18/17 07:57 RBC 3.53 10^6/uL (3.5-6.1) 02/18/17 07:57 Hgb 8.4 g/dL (12.0-16.0) L 02/18/17 07:57 Hct 29.0 % (36.0-48.0) L 02/18/17 07:57 MCV 82.2 fl (80.0-105.0) 02/18/17 07:57 MCH 23.8 pg (25.0-35.0) L 02/18/17 07:57 MCHC 29.0 g/dl (31.0-37.0) L 02/18/17 07:57 RDW 18.3 % (11.5-14.5) H 02/18/17 07:57 Plt Count 214 10^3/uL (120.0-450.0) 02/18/17 07:57 MPV 10.6 fl (7.0-11.0) 02/18/17 07:57 Gran % 71.2 % (50.0-68.0) H 02/18/17 07:57 Lymph % (Auto) 13.8 % (22.0-35.0) L 02/18/17 07:57 [place] % (Auto) 7.6 % (1.0-6.0) H 02/18/17 07:57 Eos % (Auto) 6.8 % (1.5-5.0) H 02/18/17 07:57 Baso % (Auto) 0.6 % (0.0-3.0) 02/18/17 07:57 Gran # 3.86 (1.4-6.5) 02/18/17 07:57 Lymph # 0.8 (1.2-3.4) L 02/18/17 07:57 [place] # 0.4 (0.1-0.6) 02/18/17 07:57 Eos # 0.4 (0.0-0.7) 02/18/17 07:57 Baso # 0.03 K/mm3 (0.0-2.0) 02/18/17 07:57 Sodium 142 mmol/L (132-148) 02/18/17 07:57 Potassium 3.8 mmol/L (3.6-5.0) 02/18/17 07:57 Chloride 117 mmol/L (95-110) H 02/18/17 07:57 Carbon Dioxide 21 mmol/L (21-33) 02/18/17 07:57 Anion Gap 8 (10-20) L 02/18/17 07:57 BUN 12 mg/dL (7-21) 02/18/17 07:57 Creatinine 0.9 mg/dL (0.7-1.2) 02/18/17 07:57 Est GFR ( Amer) > 60 02/18/17 07:57 Est GFR (Non-Af Amer) 60 02/18/17 07:57 POC Glucose (mg/dL) 138 mg/dL (65-110) H 02/18/17 21:43 Random Glucose 78 mg/dL (70-110) 02/18/17 07:57 Calcium 7.9 mg/dL (8.4-10.5) L 02/18/17 07:57 Attending/Attestation - Attestation I have personally seen and examined this patient.: Yes I have fully participated in the care of the patient.: Yes I have reviewed all pertinent clinical information, including history, physical exam and plan: Yes Notes (Text): 02/19/17 15:42 Attending note; Patient seen and examined with resident in Tcu. Patient is a 81 year female with history of IDDM, afib hypothyroidism, chronic left leg swelling and copd who presented with LLE cellulitis and acute calcaneal osteomyelitis and ESBL UTI. Patient underwent desensitization and is currently on meropenem and vancomycin. Case discussed with surgery in detail . Recommending IV anti-biotics and aggressive wound care. Patient choose to continue anti-biotics for long-term. Patient will decide about amputation if she is not responding to wound care and long-term anti- biotics. poor IV access; PICC line team informed. Continue local wound care. Upon discharge the patient will follow-up with PMD .
--- NOTE | 2017-02-18 14:50 | CP.PCM.PN ---
Subjective - Date & Time of Evaluation Date of Evaluation: 02/18/17 Time of Evaluation: 14:47 - Subjective Subjective: Surgery Pt s&e. NAEON. Denies F/C/N/V/D. Dressing changed today Objective - Vital Signs/Intake and Output Vital Signs (last 24 hours): Temp Pulse Resp BP Pulse Ox 97.3 F L 107 H 20 143/78 96 02/18/17 10:00 02/18/17 10:00 02/18/17 10:00 02/18/17 10:00 02/18/17 10:00 - Medications Medications: Current Medications Acetaminophen (Tylenol 325mg Tab) 650 mg PO Q6H PRN; Protocol PRN Reason: Fever >100.4 F Albuterol/Ipratropium (Duoneb 3 Mg/0.5 Mg (3 Ml) Ud) 3 ml IH [id number] KEO PRN Reason: Protocol Last Admin: 02/18/17 11:11 Dose: 3 ml Albuterol/Ipratropium (Duoneb 3 Mg/0.5 Mg (3 Ml) Ud) 3 ml IH [id number] KEO PRN Reason: Protocol Last Admin: 02/18/17 13:42 Dose: Not Given Apixaban (Eliquis) 2.5 mg PO BID KEO PRN Reason: Protocol Ascorbic Acid (Vitamin C 500 Mg Tab) 500 mg PO DAILY KEO PRN Reason: Protocol Last Admin: 02/18/17 11:54 Dose: 500 mg Darbepoetin Reed (Aranesp) 100 mcg SC QWK KEO PRN Reason: Protocol Diphenhydramine HCl (Benadryl) 50 mg IVP Q4H PRN; Protocol PRN Reason: Allergy symptoms Famotidine (Pepcid) 20 mg PO 1000,2200 KEO PRN Reason: Protocol Last Admin: 02/18/17 11:54 Dose: 20 mg Meropenem 500 mg/ Sodium (Chloride) 100 mls @ 100 mls/hr IVPB Q12 [facility] Stop: 02/23/17 10:01 Insulin Human Regular (Humulin R Low) 0 units SC ACHS KEO PRN Reason: Protocol Last Admin: 02/18/17 11:37 Dose: Not Given Insulin Lispro Protam/Lispro Human (Humalog Mix 75/25) 10 units SC ACB KEO PRN Reason: Protocol Last Admin: 02/18/17 07:01 Dose: Not Given Insulin Lispro Protam/Lispro Human (Humalog Mix 75/25) 5 units SC ACD KEO PRN Reason: Protocol Magnesium Oxide (Mag-Ox) 400 mg PO DAILY KEO PRN Reason: Protocol Last Admin: 02/18/17 11:52 Dose: 400 mg Metoprolol Tartrate (Lopressor) 50 mg PO 0800,1800 KEO PRN Reason: Protocol Last Admin: 02/18/17 08:36 Dose: 50 mg Montelukast Sodium (Singulair) 10 mg PO HS KEO PRN Reason: Protocol Last Admin: 02/17/17 23:05 Dose: 10 mg Multivitamins (Thera Tab) 1 tab PO 0800 KEO PRN Reason: Protocol Last Admin: 02/18/17 08:37 Dose: 1 tab Pregabalin (Lyrica) 50 mg PO BID KEO PRN Reason: Protocol Last Admin: 02/18/17 11:51 Dose: 50 mg Vitamin B Complex/Vit C/Folic Acid (Nephro-Shereen) 1 tab PO 0800 KEO PRN Reason: Protocol Last Admin: 02/18/17 08:37 Dose: 1 tab Zinc Sulfate (Zinc Sulfate 220 Mg Cap) 220 mg PO DAILY KEO PRN Reason: Protocol Last Admin: 02/18/17 11:54 Dose: 220 mg - Labs Labs: 02/18/17 07:57 02/18/17 07:57 - Constitutional Appears: No Acute Distress - Head Exam Head Exam: ATRAUMATIC, NORMAL INSPECTION, NORMOCEPHALIC - Eye Exam Eye Exam: EOMI, Normal appearance, PERRL Pupil Exam: NORMAL ACCOMODATION, PERRL - ENT Exam ENT Exam: Mucous Membranes Moist, Normal Exam - Neck Exam Neck Exam: Full ROM, Normal Inspection. absent: Lymphadenopathy - Respiratory Exam Respiratory Exam: Clear to Ausculation Bilateral, NORMAL BREATHING PATTERN - Cardiovascular Exam Cardiovascular Exam: REGULAR RHYTHM, +S1, +S2. absent: Murmur - GI/Abdominal Exam GI & Abdominal Exam: Soft, Normal Bowel Sounds. absent: Distended, Tenderness - Extremities Exam Extremities Exam: absent: Full ROM, Normal Inspection Additional comments: L LE ulceration. Dressing saturated. - Neurological Exam Neurological Exam: Alert, Awake, CN II-XII Intact, Oriented x3 - Psychiatric Exam Psychiatric exam: Normal Affect, Normal Mood - Skin Skin Exam: Erythema, Warm. absent: Dry, Normal Color Assessment and Plan - Assessment and Plan (Free Text) Assessment: 81 F with chronic LLE non-healing wound - Continue IV Abx per ID - Dressing changes BID: betadine on heal. Wet to dry with kerlix. and wrap with kerlix. - Medical management per Primary - further recs per Dr. Zamorano
--- NOTE | 2017-02-18 15:31 | CP.PCM.CON ---
History of Present Illness - History of Present Illness History of Present Illness: Palliative consult requested by Dr Slava Chavira Reason : Advance Care planning 81 year old NH resident with hisoty of PVD,DM, LLE celutlis, A Fib and COPD who was sent to acute care for LLE cellulitis. She denied fever, chills, nausea , vomiting, pain or dizziness The patient was then transferred to [facility] for completion of antibiotic therapy, wound care and deconditioning. PMHx: DM, PVD, A Fib, hypothyroidism, chronic lower extremity cellulitis, COPD, ICD placement, wheel chair dependent Social History: Former smoker, no alcohol or drug use. Resident of alf Family History: DM Advance Care Planning: The patient rescinded her Advance Directive. She is full code status. Review of Systems:As per HPI, all other systems reviewed and are negative Past Patient History - Infectious Disease Hx of Infectious Diseases: None - Tetanus Immunizations Tetanus Immunization: Unknown - Past Medical History & Family History Past Medical History?: Yes - Past Social History Smoking Status: Never Smoked - CARDIAC Hx Cardiac Disorders: Yes (AFib) Hx Hypertension: Yes - PULMONARY Hx Chronic Obstructive Pulmonary Disease (COPD): Yes - NEUROLOGICAL Hx Neurological Disorder: Yes Hx Dementia: Yes - HEENT Hx HEENT Problems: Yes Hx Cataracts: Yes (BILATERAL SURGERY) - RENAL Hx Chronic Kidney Disease: Yes Hx Neurogenic Bladder: Yes - ENDOCRINE/METABOLIC Hx Diabetes Mellitus Type 2: Yes - HEMATOLOGICAL/ONCOLOGICAL Hx Blood Disorders: Yes Hx Anemia: Yes - INTEGUMENTARY Hx Dermatological Problems: Yes (CELLULITIS,LEFT VENOUS STASIS ULCER) Other/Comment: cellulitis left ankle wound, left foot red and +2 edema, foul smelling dng noted to left ankle wound - MUSCULOSKELETAL/RHEUMATOLOGICAL Hx Falls: Yes - GASTROINTESTINAL Hx Gastrointestinal Disorders: Yes Hx Gastroesophageal Reflux: Yes - GENITOURINARY/GYNECOLOGICAL Hx Reproductive Disorders: No - PSYCHIATRIC Hx Psychophysiologic Disorder: No Hx Substance Use: No - SURGICAL HISTORY Other/Comment: LEFT FOOT SURGERY,PICC 01-09-14 - ANESTHESIA Hx Anesthesia: Yes Hx Anesthesia Reactions: No Hx Malignant Hyperthermia: No Meds Home Medications: Home Medication List Medication Instructions Recorded Confirmed Type Acetaminophen [Tylenol 325mg tab] 650 mg PO Q6H PRN tab 02/18/17 Rx Albuterol/Ipratropium [Duoneb 3 3 ml IH [id number] neb 02/18/17 Rx mg/0.5 mg (3 ml) UD] Albuterol/Ipratropium [Duoneb 3 3 ml IH [id number] neb 02/18/17 Rx mg/0.5 mg (3 ml) UD] Apixaban [Eliquis] 2.5 mg PO BID tab 02/18/17 Rx Ascorbic Acid [Vitamin C 500 mg 500 mg PO DAILY tab 02/18/17 Rx Tab] Darbepoetin Reed [Aranesp] 100 mcg SC QWK vial 02/18/17 Rx Famotidine [Pepcid] 20 mg PO 1000,2200 tab 02/18/17 Rx Insulin Human Regular-LOW [HumuLIN 0 units SC ACHS ml 02/18/17 Rx R LOW] Insulin Lispro Mix 75/25 [HumaLOG 5 units SC ACD ml 02/18/17 Rx Mix 75/25] Insulin Lispro Mix 75/25 [HumaLOG 10 units SC ACB ml 02/18/17 Rx Mix 75/25] Magnesium Oxide [Mag-Ox] 400 mg PO DAILY tab 02/18/17 Rx Meropenem 500 mg IV Q12 #56 vial 02/18/17 Rx Metoprolol Tartrate [Lopressor] 50 mg PO 0800,1800 tab 02/18/17 Rx Montelukast [Singulair] 10 mg PO HS tab 02/18/17 Rx Multivitamin Therapeutic Tab 1 tab PO 0800 tab 02/18/17 Rx [Thera Tab] Pregabalin [Lyrica] 50 mg PO BID cap 02/18/17 Rx Vitamin B Complex/Vit C/Folic 1 tab PO 0800 tab 02/18/17 Rx [Nephro-Shereen] Zinc [Zinc Sulfate 220 mg Cap] 220 mg PO DAILY cap 02/18/17 Rx Allergies/Adverse Reactions: Allergies Allergy/AdvReac Type Severity Reaction Status Date / Time banana Allergy RASH Verified 02/08/17 14:47 Influenza Virus Vaccines Allergy RASH Verified 02/08/17 14:47 kiwi Allergy RASH Verified 02/08/17 14:47 Penicillins Allergy RASH Verified 02/08/17 14:47 pneumococcal vaccine Allergy RASH Verified 02/08/17 14:47 strawberry Allergy RASH Verified 02/08/17 14:47 Sulfa (Sulfonamide Allergy RASH Verified 02/08/17 14:47 Antibiotics) tomato Allergy RASH Verified 02/08/17 14:47 - Medications Medications: Current Medications Acetaminophen (Tylenol 325mg Tab) 650 mg PO Q6H PRN; Protocol PRN Reason: Fever >100.4 F Albuterol/Ipratropium (Duoneb 3 Mg/0.5 Mg (3 Ml) Ud) 3 ml IH [id number] KEO PRN Reason: Protocol Last Admin: 02/18/17 15:09 Dose: 3 ml Albuterol/Ipratropium (Duoneb 3 Mg/0.5 Mg (3 Ml) Ud) 3 ml IH [id number] KEO PRN Reason: Protocol Last Admin: 02/18/17 13:42 Dose: Not Given Apixaban (Eliquis) 2.5 mg PO BID KEO PRN Reason: Protocol Ascorbic Acid (Vitamin C 500 Mg Tab) 500 mg PO DAILY KEO PRN Reason: Protocol Last Admin: 02/18/17 11:54 Dose: 500 mg Darbepoetin Reed (Aranesp) 100 mcg SC QWK KEO PRN Reason: Protocol Diphenhydramine HCl (Benadryl) 50 mg IVP Q4H PRN; Protocol PRN Reason: Allergy symptoms Famotidine (Pepcid) 20 mg PO 1000,2200 KEO PRN Reason: Protocol Last Admin: 02/18/17 11:54 Dose: 20 mg Meropenem 500 mg/ Sodium (Chloride) 100 mls @ 100 mls/hr IVPB Q12 [facility] Stop: 02/23/17 10:01 Insulin Human Regular (Humulin R Low) 0 units SC ACHS KEO PRN Reason: Protocol Last Admin: 02/18/17 11:37 Dose: Not Given Insulin Lispro Protam/Lispro Human (Humalog Mix 75/25) 10 units SC ACB KEO PRN Reason: Protocol Last Admin: 02/18/17 07:01 Dose: Not Given Insulin Lispro Protam/Lispro Human (Humalog Mix 75/25) 5 units SC ACD KEO PRN Reason: Protocol Magnesium Oxide (Mag-Ox) 400 mg PO DAILY KEO PRN Reason: Protocol Last Admin: 02/18/17 11:52 Dose: 400 mg Metoprolol Tartrate (Lopressor) 50 mg PO 0800,1800 KEO PRN Reason: Protocol Last Admin: 02/18/17 08:36 Dose: 50 mg Montelukast Sodium (Singulair) 10 mg PO HS KEO PRN Reason: Protocol Last Admin: 02/17/17 23:05 Dose: 10 mg Multivitamins (Thera Tab) 1 tab PO 0800 KEO PRN Reason: Protocol Last Admin: 02/18/17 08:37 Dose: 1 tab Pregabalin (Lyrica) 50 mg PO BID KEO PRN Reason: Protocol Last Admin: 02/18/17 11:51 Dose: 50 mg Vitamin B Complex/Vit C/Folic Acid (Nephro-Shereen) 1 tab PO 0800 KEO PRN Reason: Protocol Last Admin: 02/18/17 08:37 Dose: 1 tab Zinc Sulfate (Zinc Sulfate 220 Mg Cap) 220 mg PO DAILY KEO PRN Reason: Protocol Last Admin: 02/18/17 11:54 Dose: 220 mg Physical Exam - Constitutional Appears: No Acute Distress, Chronically Ill - Head Exam Head Exam: NORMOCEPHALIC - Eye Exam Eye Exam: Normal appearance, PERRL - ENT Exam ENT Exam: Normal Exam - Neck Exam Neck exam: Positive for: Normal Inspection - Respiratory Exam Respiratory Exam: Clear to Auscultation Bilateral, NORMAL BREATHING PATTERN - Cardiovascular Exam Cardiovascular Exam: Irregular Rhythm, +S1, +S2 - GI/Abdominal Exam GI & Abdominal Exam: Normal Bowel Sounds, Soft - Extremities Exam Additional comments: decreased pedal pulses, LLE bandaged - Back Exam Additional comments: sacral decubiti - Skin Skin Exam: Dry, Warm - Additional Findings Additional findings: Palliate performance scale rating 50 % Results - Vital Signs Recent Vital Signs: Last Vital Signs Temp 97.3 F L 02/18/17 10:00 Pulse 107 H 02/18/17 10:00 Resp 20 02/18/17 10:00 BP 143/78 02/18/17 10:00 Pulse Ox 96 02/18/17 10:00 - Labs Result Diagrams: 02/18/17 07:57 02/18/17 07:57 Labs: Laboratory Results - last 24 hr 02/17/17 02/18/17 02/18/17 22:07 05:14 07:57 WBC 5.4 RBC 3.53 Hgb 8.4 L Hct 29.0 L MCV 82.2 MCH 23.8 L MCHC 29.0 L RDW 18.3 H Plt Count 214 MPV 10.6 Gran % 71.2 H Lymph % (Auto) 13.8 L [place] % (Auto) 7.6 H Eos % (Auto) 6.8 H Baso % (Auto) 0.6 Gran # 3.86 Lymph # 0.8 L [place] # 0.4 Eos # 0.4 Baso # 0.03 Sodium Potassium Chloride Carbon Dioxide Anion Gap BUN Creatinine Est GFR ( Amer) Est GFR (Non-Af Amer) POC Glucose (mg/dL) 94 82 Random Glucose Calcium 02/18/17 07:57 WBC RBC Hgb Hct MCV MCH MCHC RDW Plt Count MPV Gran % Lymph % (Auto) [place] % (Auto) Eos % (Auto) Baso % (Auto) Gran # Lymph # [place] # Eos # Baso # Sodium 142 Potassium 3.8 Chloride 117 H Carbon Dioxide 21 Anion Gap 8 L BUN 12 Creatinine 0.9 Est GFR ( Amer) > 60 Est GFR (Non-Af Amer) 60 POC Glucose (mg/dL) Random Glucose 78 Calcium 7.9 L Assessment & Plan - Assessment and Plan (Free Text) Assessment: 81 year old female with history of COPD,DM,PVD, LE cellulitis and atrial fibrillation who was admitted with sepsis secondary to LLE cellulitis The patient is known to me from previous admission. At that time the Akash Gillette and her daughter had discussion regarding goals of care and advance care planning. Leta had an advanced directive which she rescinded. Leta is aware of the ramifications and burdens of CPR and intubation. She wants be a full code. The patients daughter supported her mother decision I met with Leta again today who affaires she wants to remain a full coded status. The patien does not want to do a POLST at this time Time spent in advance care planning discussion, 20 minutes Plan: Advance care planning - Date & Time Date: 02/18/17 Time: 13:00
--- NOTE | 2017-02-18 16:33 | CP.PCM.CON ---
History of Present Illness - History of Present Illness History of Present Illness: Infectious Disease Consultation/Follow Up: February 18, 2017 81 yo female well known to me sent from [facility] for Left lower leg cellulitis and chronic ulcerations. She was sent to [facility] for evaluation of elevated temperature and worsening renal function again. Her left leg is malodorous. She has been told on numerous occasions that an amputation of the left leg would serve her best. She has not been open to that idea at all. Although she has stated that she will think about surgery on this hospitalization, the patient has said this many times in the past and then will not address the situation any further during that hospitalization. Gram negative rods in the urine cultures. Likely this is the same organism in the leg. Necrotic heel ulcer. The patient states that she is accepting amputation but wants to talk to her daughter first... however, she has said this in past hospitalizations as well. Patient has rescinded her Living Will and is now Full Code. Amputation currently off the table now. Prepared patient for desensitization of Meropenem. Discussed with everyone involved. Moved into MICU for desensitization. No reaction to Meropenem and continued on a normal schedule. Past Patient History - Infectious Disease Hx of Infectious Diseases: None - Tetanus Immunizations Tetanus Immunization: Unknown - Past Medical History & Family History Past Medical History?: Yes - Past Social History Smoking Status: Never Smoked - CARDIAC Hx Cardiac Disorders: Yes (AFib) Hx Hypertension: Yes - PULMONARY Hx Chronic Obstructive Pulmonary Disease (COPD): Yes - NEUROLOGICAL Hx Neurological Disorder: Yes Hx Dementia: Yes - HEENT Hx HEENT Problems: Yes Hx Cataracts: Yes (BILATERAL SURGERY) - RENAL Hx Chronic Kidney Disease: Yes Hx Neurogenic Bladder: Yes - ENDOCRINE/METABOLIC Hx Diabetes Mellitus Type 2: Yes - HEMATOLOGICAL/ONCOLOGICAL Hx Blood Disorders: Yes Hx Anemia: Yes - INTEGUMENTARY Hx Dermatological Problems: Yes (CELLULITIS,LEFT VENOUS STASIS ULCER) Other/Comment: cellulitis left ankle wound, left foot red and +2 edema, foul smelling dng noted to left ankle wound - MUSCULOSKELETAL/RHEUMATOLOGICAL Hx Falls: Yes - GASTROINTESTINAL Hx Gastrointestinal Disorders: Yes Hx Gastroesophageal Reflux: Yes - GENITOURINARY/GYNECOLOGICAL Hx Reproductive Disorders: No - PSYCHIATRIC Hx Psychophysiologic Disorder: No Hx Substance Use: No - SURGICAL HISTORY Other/Comment: LEFT FOOT SURGERY,PICC 01-09-14 - ANESTHESIA Hx Anesthesia: Yes Hx Anesthesia Reactions: No Hx Malignant Hyperthermia: No Meds Home Medications: Home Medication List Medication Instructions Recorded Confirmed Type Acetaminophen [Tylenol 325mg tab] 650 mg PO Q6H PRN tab 02/18/17 Rx Albuterol/Ipratropium [Duoneb 3 3 ml IH [id number] neb 02/18/17 Rx mg/0.5 mg (3 ml) UD] Albuterol/Ipratropium [Duoneb 3 3 ml IH [id number] neb 02/18/17 Rx mg/0.5 mg (3 ml) UD] Apixaban [Eliquis] 2.5 mg PO BID tab 02/18/17 Rx Ascorbic Acid [Vitamin C 500 mg 500 mg PO DAILY tab 02/18/17 Rx Tab] Darbepoetin Reed [Aranesp] 100 mcg SC QWK vial 02/18/17 Rx Famotidine [Pepcid] 20 mg PO 1000,2200 tab 02/18/17 Rx Insulin Human Regular-LOW [HumuLIN 0 units SC ACHS ml 02/18/17 Rx R LOW] Insulin Lispro Mix 75/25 [HumaLOG 5 units SC ACD ml 02/18/17 Rx Mix 75/25] Insulin Lispro Mix 75/25 [HumaLOG 10 units SC ACB ml 02/18/17 Rx Mix 75/25] Magnesium Oxide [Mag-Ox] 400 mg PO DAILY tab 02/18/17 Rx Meropenem 500 mg IV Q12 #56 vial 02/18/17 Rx Metoprolol Tartrate [Lopressor] 50 mg PO 0800,1800 tab 02/18/17 Rx Montelukast [Singulair] 10 mg PO HS tab 02/18/17 Rx Multivitamin Therapeutic Tab 1 tab PO 0800 tab 02/18/17 Rx [Thera Tab] Pregabalin [Lyrica] 50 mg PO BID cap 02/18/17 Rx Vitamin B Complex/Vit C/Folic 1 tab PO 0800 tab 02/18/17 Rx [Nephro-Shereen] Zinc [Zinc Sulfate 220 mg Cap] 220 mg PO DAILY cap 02/18/17 Rx Allergies/Adverse Reactions: Allergies Allergy/AdvReac Type Severity Reaction Status Date / Time banana Allergy RASH Verified 02/08/17 14:47 Influenza Virus Vaccines Allergy RASH Verified 02/08/17 14:47 kiwi Allergy RASH Verified 02/08/17 14:47 Penicillins Allergy RASH Verified 02/08/17 14:47 pneumococcal vaccine Allergy RASH Verified 02/08/17 14:47 strawberry Allergy RASH Verified 02/08/17 14:47 Sulfa (Sulfonamide Allergy RASH Verified 02/08/17 14:47 Antibiotics) tomato Allergy RASH Verified 02/08/17 14:47 - Medications Medications: Current Medications Acetaminophen (Tylenol 325mg Tab) 650 mg PO Q6H PRN; Protocol PRN Reason: Fever >100.4 F Albuterol/Ipratropium (Duoneb 3 Mg/0.5 Mg (3 Ml) Ud) 3 ml IH [id number] KEO PRN Reason: Protocol Last Admin: 02/18/17 15:09 Dose: 3 ml Albuterol/Ipratropium (Duoneb 3 Mg/0.5 Mg (3 Ml) Ud) 3 ml IH [id number] KEO PRN Reason: Protocol Last Admin: 02/18/17 13:42 Dose: Not Given Apixaban (Eliquis) 2.5 mg PO BID KEO PRN Reason: Protocol Ascorbic Acid (Vitamin C 500 Mg Tab) 500 mg PO DAILY KEO PRN Reason: Protocol Last Admin: 02/18/17 11:54 Dose: 500 mg Darbepoetin Reed (Aranesp) 100 mcg SC QWK KEO PRN Reason: Protocol Diphenhydramine HCl (Benadryl) 50 mg IVP Q4H PRN; Protocol PRN Reason: Allergy symptoms Famotidine (Pepcid) 20 mg PO 1000,2200 KEO PRN Reason: Protocol Last Admin: 02/18/17 11:54 Dose: 20 mg Meropenem 500 mg/ Sodium (Chloride) 100 mls @ 100 mls/hr IVPB Q12 KEO Stop: 02/23/17 10:01 Insulin Human Regular (Humulin R Low) 0 units SC ACHS KEO PRN Reason: Protocol Last Admin: 02/18/17 11:37 Dose: Not Given Insulin Lispro Protam/Lispro Human (Humalog Mix 75/25) 10 units SC ACB KEO PRN Reason: Protocol Last Admin: 02/18/17 07:01 Dose: Not Given Insulin Lispro Protam/Lispro Human (Humalog Mix 75/25) 5 units SC ACD KEO PRN Reason: Protocol Magnesium Oxide (Mag-Ox) 400 mg PO DAILY KEO PRN Reason: Protocol Last Admin: 02/18/17 11:52 Dose: 400 mg Metoprolol Tartrate (Lopressor) 50 mg PO 0800,1800 KEO PRN Reason: Protocol Last Admin: 02/18/17 08:36 Dose: 50 mg Montelukast Sodium (Singulair) 10 mg PO HS KEO PRN Reason: Protocol Last Admin: 02/17/17 23:05 Dose: 10 mg Multivitamins (Thera Tab) 1 tab PO 0800 KEO PRN Reason: Protocol Last Admin: 02/18/17 08:37 Dose: 1 tab Pregabalin (Lyrica) 50 mg PO BID KEO PRN Reason: Protocol Last Admin: 02/18/17 11:51 Dose: 50 mg Vitamin B Complex/Vit C/Folic Acid (Nephro-Shereen) 1 tab PO 0800 KEO PRN Reason: Protocol Last Admin: 02/18/17 08:37 Dose: 1 tab Zinc Sulfate (Zinc Sulfate 220 Mg Cap) 220 mg PO DAILY KEO PRN Reason: Protocol Last Admin: 02/18/17 11:54 Dose: 220 mg Physical Exam - Constitutional Appears: Non-toxic, No Acute Distress, Chronically Ill - Head Exam Head Exam: ATRAUMATIC, NORMOCEPHALIC - Eye Exam Eye Exam: EOMI, PERRL Pupil Exam: NORMAL ACCOMODATION, PERRL - ENT Exam ENT Exam: Mucous Membranes Moist, Normal External Ear Exam, TM's Normal Bilaterally - Neck Exam Neck exam: Positive for: Full Rom, Normal Inspection - Respiratory Exam Respiratory Exam: Clear to Auscultation Bilateral, NORMAL BREATHING PATTERN. absent: Rales, Rhonchi, Wheezes - Cardiovascular Exam Cardiovascular Exam: Irregular Rhythm, REGULAR RHYTHM, +S1, +S2 - GI/Abdominal Exam GI & Abdominal Exam: Normal Bowel Sounds, Soft. absent: Distended, Tenderness - Extremities Exam Extremities exam: Positive for: joint swelling, pedal edema Additional comments: bilateral chronic ulcerations of both lower legs with history of multiple infections. Left much worse than right. - Neurological Exam Neurological exam: Alert, CN II-XII Intact, Oriented x3 - Psychiatric Exam Psychiatric exam: Normal Affect, Normal Mood - Skin Additional comments: As Above Results - Vital Signs Recent Vital Signs: Last Vital Signs Temp 97.3 F L 02/18/17 10:00 Pulse 107 H 02/18/17 10:00 Resp 20 02/18/17 10:00 BP 143/78 02/18/17 10:00 Pulse Ox 96 02/18/17 10:00 - Labs Result Diagrams: 02/18/17 07:57 02/18/17 07:57 Labs: Laboratory Results - last 24 hr 02/17/17 02/18/17 02/18/17 22:07 05:14 07:57 WBC 5.4 RBC 3.53 Hgb 8.4 L Hct 29.0 L MCV 82.2 MCH 23.8 L MCHC 29.0 L RDW 18.3 H Plt Count 214 MPV 10.6 Gran % 71.2 H Lymph % (Auto) 13.8 L [place] % (Auto) 7.6 H Eos % (Auto) 6.8 H Baso % (Auto) 0.6 Gran # 3.86 Lymph # 0.8 L [place] # 0.4 Eos # 0.4 Baso # 0.03 Sodium Potassium Chloride Carbon Dioxide Anion Gap BUN Creatinine Est GFR ( Amer) Est GFR (Non-Af Amer) POC Glucose (mg/dL) 94 82 Random Glucose Calcium 02/18/17 07:57 WBC RBC Hgb Hct MCV MCH MCHC RDW Plt Count MPV Gran % Lymph % (Auto) [place] % (Auto) Eos % (Auto) Baso % (Auto) Gran # Lymph # [place] # Eos # Baso # Sodium 142 Potassium 3.8 Chloride 117 H Carbon Dioxide 21 Anion Gap 8 L BUN 12 Creatinine 0.9 Est GFR ( Amer) > 60 Est GFR (Non-Af Amer) 60 POC Glucose (mg/dL) Random Glucose 78 Calcium 7.9 L Assessment & Plan - Assessment and Plan (Free Text) Assessment: 81 yo female with malodor and fevers at the nursing facility. The patient has been refusing BKA despite advice for the past year. Start Aztreonam and Vancomycin for now. Monitor renal function closely. Creatinine is significantly increased compared to last hospitalization but did improve today. Local wound care. Awaiting cultures. Antibiotic choices are very very limited. Gram negative rods in leg wounds. Identification pending. ESBL + E. coli. Extremely limited options in treatment. Amputation would be the best answer with short term aminoglycoside. Discussions of amputation made. Patient is making no hard commitment. Completed desensitization for PCN with meropenem. Added Benadryl and Pepcid. Patient transferred to MICU in preparation. No reactions with desensitization doses. Started on full dose meropenem. Transferred back to the floor. Now on Meropenem and Vancomycin. Would continue with Meropenem for at least 2 weeks and up to four weeks. Amputation apparently is off the decision table at this time. Thank you for allowing me to participate in the care of the patient, we will follow with you.
[2017-02-18] MEDS ORDERED: DiphenhydrAMINE 50 mg/ml Inj IVP PRN (16:45)
[2017-02-18] MEDS: Meropenem 500 MG in Sodium Chloride 0.9% 100 ML IVPB SCH ×2 (17:27→21:27)
[2017-02-19] MEDS: Albuterol-Ipratrop 3 mg / 0.5 (3 ml) UD IH SCH ×8 (01:55→15:32)
--- NOTE | 2017-02-19 02:26 | CON ---
DATE: 02/18/2017 REASON FOR CONSULTATION: Continuity of the care. The patient came with history of atrial fibrillation status post pacemaker. BRIEF CLINICAL HISTORY: This is an 81-year-old female with a past medical history of chronic atrial fibrillation, history of permanent pacemaker with sick sinus syndrome, tachy-lola syndrome, hypertension, and COPD, transferred from the skilled nursing because of discharge from the leg ulcers. Initial plan was do an amputation, but now it is decided to treat with IV medication for 4 weeks. Now patient returns for continuity of care. So, cardiac consult to confirm followup. PAST MEDICAL HISTORY: Significant for paroxysmal atrial fibrillation with multiple pauses, tachy-lola, status post permanent pacemaker; history of chronic leg cellulitis of left leg, multiple nonhealing ulcers. Initially admitted for amputation and plan is to continue IV antibiotic with cardiac workup. The patient has a single-chamber VVI pacemaker on 10/05/2015. History of COPD and hypertension. SOCIAL HISTORY: Denies any history of alcohol abuse. CURRENT MEDICATION: Patient was on Lovenox, I switched over to Eliquis 2.5 mg b.i.d., metoprolol tartrate 50 mg p.o. b.i.d., albuterol nebulizer, insulin, acetaminophen, and zinc sulfate. ALLERGIES: ALLERGIC TO BANANA, INFLUENZA VACCINE, KIWI FRUIT, PENICILLIN, PNEUMOCOCCAL VACCINE, STRAWBERRY FRUIT, SULFA, AND TOMATO. REVIEW OF SYSTEMS: As per HPI. PHYSICAL EXAMINATION: VITAL SIGNS: Temperature is afebrile, heart rate 106, blood pressure 135/81. HEENT: PERRLA, intact. NECK: Supple. No carotid bruit or thyromegaly. CHEST: Clear to auscultation. HEART: S1 and S2, regular. ABDOMEN: Soft. EXTREMITIES: Clubbing and cyanosis negative. LABORATORY DATA: Blood workup as follows: WBC 5.5, hemoglobin 8.5, hematocrit 29, platelet count 214. Chemistry shows sodium 140, potassium 3.0, chloride 117, carbon dioxide 29, anion gap of 8, BUN 12, creatinine 0.9. IMPRESSION: History of chronic atrial fibrillation, status post permanent pacemaker; nonhealing ulcers on the left leg, anemia, protein-calorie malnutrition moderate to severe, which was present on admission with moderate to severe malnutrition, sick sinus syndrome, tachy-lola syndrome status post permanent pacemaker. Last echocardiography on 07/12/2015, ejection fraction preserved mild aortic regurgitation, mild aortic stenosis, moderate tricuspid regurgitation, and right ventricular systolic pressure of 71. RECOMMENDATIONS: We started Eliquis, continue Eliquis. Continue antibiotic as per ID. Continue beta-orlin. We will follow with you. Thank you Dr. Chavira for providing me the opportunity in taking care of Leta Lorenzo. We will follow with you. Christin Salazar MD
[2017-02-19] MEDS: Insulin Lispro (humaLOG) MIX 75/25(10 ml) SC SCH ×2 (06:58→17:42)
[2017-02-19] MEDS: Insulin Reg-LOW-Coverage SC SCH ×3 (06:58→17:42)
[2017-02-19] MEDS: Multivitamin Vitamin B Complex (Nephro-Vite) Tab PO SCH (08:22)
[2017-02-19] MEDS: Multivitamin Therapeutic Tab PO SCH (08:22)
[2017-02-19] MEDS ORDERED: HYDROmorphone 1 mg/ml ISec IVP STA (09:00)
[2017-02-19] MEDS ORDERED: HYDROmorphone 0.5 mg/0.5 ml ISec IVP STA (09:09)
[2017-02-19] MEDS: Magnesium Oxide 400 mg Tab UD PO SCH (10:10)
[2017-02-19] MEDS: Meropenem 500 MG in Sodium Chloride 0.9% 100 ML IVPB SCH (10:10)
--- NOTE | 2017-02-19 12:48 | CP.PCM.PN ---
<Braxton Jeffries - Last Filed: 02/19/17 12:37> Subjective - Date & Time of Evaluation Date of Evaluation: 02/19/17 Time of Evaluation: 09:00 - Subjective Subjective: Subjective: Patient seen and examined at bedside. Resting comfortably in bed. Tachycardia in low 100-107 again noted. Offers no new complaints at this time. Willing to have PICC placed later today. Denies f/c/cp/sob/abdominal pain/n/v/d/c/urinary sxs. Physical Examination: - Constitutional Appears: Non-toxic, No Acute Distress - Head Exam Head Exam: ATRAUMATIC, NORMAL INSPECTION, NORMOCEPHALIC - ENT Exam ENT Exam: Mucous Membranes Moist, Normal Exam - Respiratory Exam Respiratory Exam: Clear to Ausculation Bilateral, NORMAL BREATHING PATTERN. absent: Rales, Rhonchi, Wheezes - Cardiovascular Exam Cardiovascular Exam: RRR, +S1, +S2 - GI/Abdominal Exam GI & Abdominal Exam: Soft, Normal Bowel Sounds. absent: Tenderness - Extremities Exam Extremities Exam: Pedal Edema Additional comments: Left lower extremity bandaged. Dressing clean, dry, and intact. - Neurological Exam Neurological Exam: Patient is awake, alert, responds to verbal stimuli, answers questions appropriately, follows commands, and moves extremities past midline - Psychiatric Exam Psychiatric exam: Normal Affect, Normal Mood - Skin Additional comments: As per surgery, left foot is draining with necrotic tissue. Sacral decub noted Assessment and Plan: Patient is a 81 y/o F with PMH of Diabetes Mellitus, A fib on Eliquis, hypothyroidism, chronic left legs swelling and cellulitis, and COPD who was admitted for evaluation and treatment for sepsis secondary to left lower extremity cellulitis and UTI. LLE Cellulitis - c/w meropenem after recieving PICC line - follow up outpatient with surgery team UTI - c/w meropenem after recieving PICC line A-fib - RVR noted in low 100s- c/w lopressor - c/w eliquis DM - continue current insulin regiment, Blood glucose trend noted COPD - Duonebs q4h prn - Singulair Sacral Decubitus Ulcer - likely stage 1/2 - c/w zinc, multivitamin, and vitamin C supplements - surgery is consulted- appreciate recs Hx of Anemia - Hgb trended and appreciated- continue aranesp PPX - Pepcid - lovenox Dispo: Patient will be transferred to [facility] after receiving PICC line. Patient seen, case discussed with, and plan approved by attending physician, Dr. Davey. Objective - Vital Signs/Intake and Output Vital Signs (last 24 hours): Temp Pulse Resp BP Pulse Ox 97.8 F 105 H 15 134/77 96 02/18/17 17:01 02/19/17 08:22 02/18/17 17:01 02/19/17 08:22 02/18/17 10:00 - Medications Medications: Current Medications Acetaminophen (Tylenol 325mg Tab) 650 mg PO Q6H PRN; Protocol PRN Reason: Fever >100.4 F Albuterol/Ipratropium (Duoneb 3 Mg/0.5 Mg (3 Ml) Ud) 3 ml IH [id number] KEO PRN Reason: Protocol Last Admin: 02/19/17 11:01 Dose: 3 ml Albuterol/Ipratropium (Duoneb 3 Mg/0.5 Mg (3 Ml) Ud) 3 ml IH [id number] KEO PRN Reason: Protocol Last Admin: 02/19/17 07:17 Dose: Not Given Apixaban (Eliquis) 2.5 mg PO BID KEO PRN Reason: Protocol Last Admin: 02/18/17 17:22 Dose: Not Given Ascorbic Acid (Vitamin C 500 Mg Tab) 500 mg PO DAILY KEO PRN Reason: Protocol Last Admin: 02/19/17 10:11 Dose: 500 mg Darbepoetin Reed (Aranesp) 100 mcg SC QWK EKO PRN Reason: Protocol Diphenhydramine HCl (Benadryl) 25 mg IVP Q8 PRN; Protocol PRN Reason: Allergy symptoms Famotidine (Pepcid) 20 mg PO 1000,2200 KEO PRN Reason: Protocol Last Admin: 02/19/17 10:11 Dose: 20 mg Meropenem 500 mg/ Sodium (Chloride) 100 mls @ 100 mls/hr IVPB Q12 KEO Stop: 02/23/17 10:01 Last Admin: 02/19/17 10:10 Dose: 100 mls/hr Insulin Human Regular (Humulin R Low) 0 units SC ACHS KEO PRN Reason: Protocol Last Admin: 02/19/17 12:07 Dose: Not Given Insulin Lispro Protam/Lispro Human (Humalog Mix 75/25) 10 units SC ACB KEO PRN Reason: Protocol Last Admin: 02/19/17 06:58 Dose: Not Given Insulin Lispro Protam/Lispro Human (Humalog Mix 75/25) 5 units SC ACD KEO PRN Reason: Protocol Last Admin: 02/18/17 17:23 Dose: 5 units Magnesium Oxide (Mag-Ox) 400 mg PO DAILY KEO PRN Reason: Protocol Last Admin: 02/19/17 10:10 Dose: 400 mg Metoprolol Tartrate (Lopressor) 50 mg PO 0800,1800 KEO PRN Reason: Protocol Last Admin: 02/19/17 08:22 Dose: 50 mg Montelukast Sodium (Singulair) 10 mg PO HS KEO PRN Reason: Protocol Last Admin: 02/18/17 21:28 Dose: 10 mg Multivitamins (Thera Tab) 1 tab PO 0800 KEO PRN Reason: Protocol Last Admin: 02/19/17 08:22 Dose: 1 tab Pregabalin (Lyrica) 50 mg PO BID KEO PRN Reason: Protocol Last Admin: 02/19/17 10:10 Dose: 50 mg Vitamin B Complex/Vit C/Folic Acid (Nephro-Shereen) 1 tab PO 0800 KEO PRN Reason: Protocol Last Admin: 02/19/17 08:22 Dose: 1 tab Zinc Sulfate (Zinc Sulfate 220 Mg Cap) 220 mg PO DAILY KEO PRN Reason: Protocol Last Admin: 02/19/17 10:11 Dose: 220 mg - Labs Labs: 02/18/17 07:57 02/18/17 07:57 Assessment and Plan (1) Anemia Status: Acute (2) Atrial fibrillation Status: Acute (3) Diabetic leg ulcer Status: Acute (4) Urinary tract infection Status: Acute (5) COPD (chronic obstructive pulmonary disease) Status: Chronic (6) Cellulitis of leg Status: Chronic (7) Diabetes Status: Chronic <Don Davey - Last Filed: 02/20/17 15:59> Objective - Vital Signs/Intake and Output Vital Signs (last 24 hours): Temp Pulse Resp BP Pulse Ox 97.9 F 102 H 20 137/74 97 02/19/17 17:27 02/19/17 17:27 02/19/17 17:27 02/19/17 17:27 02/19/17 17:27 - Labs Labs: 02/18/17 07:57 02/18/17 07:57 Attending/Attestation - Attestation I have personally seen and examined this patient.: Yes I have fully participated in the care of the patient.: Yes I have reviewed all pertinent clinical information, including history, physical exam and plan: Yes Notes (Text): 02/20/17 15:55 Attending note; Patient seen and examined with resident in [facility]. Patient is a 81 year female with history of IDDM, afib hypothyroidism, chronic left leg swelling and copd who presented with LLE cellulitis and acute calcaneal osteomyelitis and ESBL UTI. Patient underwent desensitization and is currently on meropenem and vancomycin. Case discussed with surgery in detail . Recommending IV anti-biotics and aggressive wound care. Patient choose to continue anti-biotics for long-term. Patient will decide about amputation if she is not responding to wound care and long-term anti- biotics. case discussed with ID in detail. Patient will need 4 more weeks of IV meropenem. Follow-up with surgery in 2 weeks. If patient does not improve patient might need amputation. PICC line place. Continue local wound care. Upon discharge the patient will follow-up with PMD . case discussed with PMD in detail about the follow-up plan. Diagnosis; Left calcaneal osteomyelitis ESBL UTI Status post penicillin desensitization Chronic nonhealing left lower extremity ulcer Atrial fibrillation anemia diabetes
--- NOTE | 2017-02-19 13:47 | PN ---
DATE: 02/19/2017 LOCATION: The patient in room #302, bed #1. REASON FOR CONSULTATION: Follow up with atrial fibrillation, status post pacemaker insertion; hypertension. SUBJECTIVE: The patient is lying flat in bed without chest pain, shortness of breath, or palpitation. She still has open ulcers on the left lower leg for which she is getting antibiotic and therapy. The patient lying flat in bed without any cardiac symptoms. PHYSICAL EXAMINATION: VITAL SIGNS: Blood pressure 134/77, respirations 15, pulse 100 and temperature 97.8. HEENT: Normocephalic. Pupils normal. Conjunctivae slightly pale. NECK: JVP low. Carotids equal. THORAX: AP diameter normal. LUNGS: Clear. CARDIOVASCULAR: S1 and S2. ABDOMEN: Soft, nontender. No organomegaly. EXTREMITIES: The patient has open ulcerated area on left lower leg. No clubbing, no cyanosis. LABORATORY DATA: WBC 5.4, hemoglobin 8.4, hematocrit 29.0 and platelet 214. Sodium 142, potassium 3.8, BUN 12, creatinine 0.9, glucose 138 and random glucose 78. DIAGNOSES: Chronic atrial fibrillation, status post permanent pacemaker insertion; hypertension; anemia; open ulcers on the left lower leg. Echo, 07/12/2015, showed preserved left ventricular ejection fraction, mild aortic regurgitation, mild aortic stenosis, moderate tricuspid regurgitation, right ventricular systolic pressure of 71 mmHg, moderate to significant pulmonary hypertension. PLAN: Initially, the patient was being planned for amputation below knee and now, it has been decided to give another chance with medical therapy including antibiotics. The patient clinically from cardiac point of view is stable at this point, so the patient is getting Eliquis 2.5 b.i.d., metoprolol 50 mg b.i.d., Lyrica 50 mg b.i.d., meropenem 500 mg IV q. 12-hour, Singulair 10 mg daily and ascorbic acid which is vitamin C, 500 mg tablet, 500 mg p.o. daily. We will continue present therapy and we will follow. Christin Da Silva MD
[2017-02-19 14:41] VITALS: RESP 20
[2017-02-19 17:30] VITALS: BP 137/74; PULSE 102; TEMP 97.9; O2SAT 97
[2017-02-22] MEDS ORDERED: Darbepoetin Alfa 100 mcg/ml Inj SC SCH (10:00)
== END 2017-02-19 17:51 | DRG 871 ==
LOC: TRCU 20:39
PROVIDERS: ADMIT Hospitalist; ATTEND Hospitalist
DX: A41.9 Sepsis, unspecified organism (principal); E43 Unspecified severe protein-calorie malnutrition; M86.172 Other acute osteomyelitis, left ankle and foot; L03.116 Cellulitis of left lower limb; N39.0 Urinary tract infection, site not specified; L89.152 Pressure ulcer of sacral region, stage 2; E11.22 Type 2 diabetes mellitus with diabetic chronic kidney disease; E11.51 Type 2 diabetes mellitus with diabetic peripheral angiopathy without gangrene; I48.0 Paroxysmal atrial fibrillation; E11.69 Type 2 diabetes mellitus with other specified complication; I49.5 Sick sinus syndrome; F03.90 Unspecified dementia, unspecified severity, without behavioral disturbance, psychotic disturbance, mood disturbance, and anxiety; L97.409 Non-pressure chronic ulcer of unspecified heel and midfoot with unspecified severity; E11.621 Type 2 diabetes mellitus with foot ulcer; D64.9 Anemia, unspecified; J44.9 Chronic obstructive pulmonary disease, unspecified; E03.9 Hypothyroidism, unspecified; I48.2 Chronic atrial fibrillation; N18.9 Chronic kidney disease, unspecified; R26.9 Unspecified abnormalities of gait and mobility; I27.20 Pulmonary hypertension, unspecified; Z87.891 Personal history of nicotine dependence; Z95.810 Presence of automatic (implantable) cardiac defibrillator; Z79.4 Long term (current) use of insulin; Z88.0 Allergy status to penicillin; Z88.2 Allergy status to sulfonamides; Z68.34 Body mass index [BMI] 34.0-34.9, adult

== ENCOUNTER → 2017-02-19 | Day surgery (SDC) | payer MEDICARE, MEDICAID ==
[~2017-02-19] MED LIST: Iohexol 350mgl/ml 50 ML ONE; Lidocaine 2% Inj (20ml) ONE
[2017-02-19 12:32] VITALS: PULSE 105
[2017-02-19 15:18] VITALS: BMI 29.2
[2017-02-19 15:42] VITALS: BP 136/88; RESP 20; TEMP 98.3; O2SAT 94
--- NOTE | 2017-02-19 17:53 | VASCULAR ---
PROCEDURE: Ultrasound and fluoroscopically placed left upper extremity PICC line. HISTORY: Extensive left lower extremity cellulitis. Long-term IV antibiotics. Needs PICC line PHYSICIAN(S): Miguel Guzman MD. TECHNIQUE: The relative risks and indications of the procedure were explained to the patient and consent obtained. The patient was placed supine on the arteriogram table and the left arm prepped and draped in the usual sterile fashion. A tourniquet was applied to the left axilla. 1% Xylocaine was used to anesthetize the skin and soft tissues at the puncture site above the elbow. The left brachial vein was punctured under direct ultrasound guidance with a micropuncture set. 0.018 would not advance beyond the left subclavian vein at the pacemaker insertion site. A 5 Ukrainian catheter was placed. 0.035 glidewire was used to negotiate cyst stenosis of the left subclavian vein related to the pacemaker wire. The wire was advanced centrally. 5 Ukrainian single lumen PICC line 38 cm long was advanced to the SVC/RA junction. The catheter was flushed and secured. The patient tolerated the procedure well. IMPRESSION: 1. Ultrasound and fluoroscopically placed left upper extremity PICC line. A 5 [place] single-lumen PICC line 38 cm long was advanced to the SVC/RA junction. 2. 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
== END ==
LOC: OPSURG 13:05
PROVIDERS: ATTEND Radiology Vascular & Interventional Radiology
DX: L03.116 Cellulitis of left lower limb (principal); Z79.2 Long term (current) use of antibiotics
CPT/HCPCS: 36569; 76937; 77001; C1751; C1769 ×2; J1644; Q9967

== ENCOUNTER 2017-03-16 11:45 | Observation (INO) | payer MEDICARE, MEDICAID ==
--- NOTE | 2017-03-16 12:06 | ED PDOC ---
Arrival/HPI - General Time Seen by Provider: 03/16/17 11:49 Historian: Patient - History of Present Illness Narrative History of Present Illness (Text): 03/16/17 12:02 An 81 year old female, whose past medical history includes Diabetes, A-fib on Eliquis, hypothyroidism, chronic left leg swelling and cellulitis, and COPD, presents to the emergency department via EMS from [facility] for pneumonia. As per correction's report, the patient received a Chest X-ray on 03/15 which showed right lower lobe pneumonia. She notes that she has been coughing this morning and has been experiencing rhinorrea for several days. The patient denies fevers, chills, headache, dizziness, chest pain, shortness of breath, dyspnea on exertion, abdominal pain, nausea, vomiting, diarrhea, back pain, neck pain, urinary/bowel changes, or any other complaint. PMD: Dr. Sparks Time/Duration: Other (This Morning) Symptom Onset: Sudden Symptom Course: Unchanged Activities at Onset: Rest, Light Context: Other ([facility]) Past Medical History - Provider Review Nursing Documentation Reviewed: Yes - Infectious Disease Hx of Infectious Diseases: None - Tetanus Immunization Tetanus Immunization: Unknown - Cardiac Hx Hypertension: Yes Hx Pacemaker: No Other/Comment: L chest ICD - Pulmonary Hx Chronic Obstructive Pulmonary Disease (COPD): Yes - Neurological Hx Paralysis: No - HEENT Hx HEENT Disorder: Yes Hx Cataracts: Yes (BILATERAL SURGERY) - Renal Hx Renal Disorder: Yes Hx Neurogenic Bladder: Yes - Endocrine/Metabolic Hx Diabetes Mellitus Type 2: Yes - Hematological/Oncological Hx Anemia: Yes Hx Blood Transfusions: No Hx Blood Transfusion Reaction: No - Integumentary Hx Dermatological Disorder: Yes (CELLULITIS,LEFT VENOUS STASIS ULCER) Other/Comment: cellulitis left ankle wound, left foot red and +2 edema, foul smelling dng noted to left ankle wound - Musculoskeletal/Rheumatological Hx Musculoskeletal Disorders: Yes - Gastrointestinal Hx Gastrointestinal Disorders: Yes Hx Gastroesophageal Reflux: Yes Other/Comment: diaphragmatic hernia - Genitourinary/Gynecological Hx Reproductive Disorders: No - Psychiatric Hx Depression: Yes Hx Emotional Abuse: No Hx Physical Abuse: No Hx Substance Use: No - Past Surgical History Past Surgical History: Non-Contributing - Surgical History Other/Comment: L chest ICD. L upper arm PICC - Anesthesia Hx Anesthesia: Yes Hx Anesthesia Reactions: No Hx Malignant Hyperthermia: No - Suicidal Assessment Feels Threatened In Home Enviroment: No Family/Social History - Physician Review Nursing Documentation Reviewed: Yes Family/Social History: No Known Family HX Smoking Status: Never Smoked Hx Alcohol Use: No Hx Substance Use: No Hx Substance Use Treatment: No Allergies/Home Meds Allergies/Adverse Reactions: Allergies banana Allergy (Verified 02/08/17 14:47) RASH Influenza Virus Vaccines Allergy (Verified 02/08/17 14:47) RASH kiwi Allergy (Verified 02/08/17 14:47) RASH Penicillins Allergy (Verified 02/08/17 14:47) RASH pneumococcal vaccine Allergy (Verified 02/08/17 14:47) RASH strawberry Allergy (Verified 02/08/17 14:47) RASH Sulfa (Sulfonamide Antibiotics) Allergy (Verified 02/08/17 14:47) RASH tomato Allergy (Verified 02/08/17 14:47) RASH Home Medications: Home Meds Medication Instructions Recorded Confirmed Albuterol/Ipratropium [Duoneb 3 3 ml IH Q6H 03/16/17 03/16/17 mg/0.5 mg (3 ml) UD] Colchicine [Colcrys] 1 tab PO DAILY 03/16/17 03/16/17 Epoetin Reed [Procrit] 40,000 units IM Q7D 03/16/17 03/16/17 Ferrous Sulfate [Feosol] 1 tab PO BID 03/16/17 03/16/17 Folic Acid/Vit B Complex and C 1 tab PO DAILY 03/16/17 03/16/17 [Emma-Shereen Tablet] Furosemide [Lasix] 1 tab PO DAILY 03/16/17 03/16/17 Potassium Chloride [K-Dur 20 mEq 1 tab PO DAILY 03/16/17 03/16/17 ER Tab] oxyCODONE/Acetaminophen [Percocet 1 tab PO BID 03/16/17 03/16/17 5/325 mg Tab] Review of Systems - Physician Review All systems were reviewed & negative as marked: Yes - Review of Systems Constitutional: absent: Fevers, Night Sweats ENT: Rhinorrhea Respiratory: Cough. absent: SOB Cardiovascular: absent: Chest Pain, [place] Gastrointestinal: absent: Abdominal Pain, Stool Changes, Nausea, Vomiting Genitourinary Female: absent: Urine Output Changes Musculoskeletal: absent: Back Pain, Neck Pain Neurological: absent: Headache, Dizziness Physical Exam Vital Signs Reviewed: Yes Vital Signs Temp Pulse Resp BP Pulse Ox 03/16/17 11:45 99.1 F 93 H 24 141/90 92 L Temperature: Afebrile Blood Pressure: Normal Pulse: Tachycardic Respiratory Rate: Normal Appearance: Positive for: Well-Appearing, Non-Toxic, Comfortable Pain Distress: None Mental Status: Positive for: Alert and Oriented X 3 - Systems Exam Head: Present: Atraumatic, Normocephalic Pupils: Present: PERRL Extroacular Muscles: Present: EOMI Conjunctiva: Present: Normal Mouth: Present: Moist Mucous Membranes Neck: Present: Normal Range of Motion Respiratory/Chest: Present: Rhonchi (rhonchi in left lower lung field) Cardiovascular: Present: Regular Rate and Rhythm, Normal S1, S2. No: Murmurs Abdomen: No: Tenderness Back: Present: Normal Inspection Upper Extremity: Present: Normal Inspection. No: Cyanosis, Edema Lower Extremity: Present: Other (Left calcaneal ulcer) Neurological: Present: GCS=15, CN II-XII Intact, Speech Normal Skin: Present: Warm, Dry, Normal Color. No: Rashes Psychiatric: Present: Alert, Oriented x 3, Normal Insight, Normal Concentration Medical Decision Making ED Course and Treatment: 03/16/17 12:21 Impression: An 81 year old female brought in tot he emergency department via EMS from [facility] for PNA. Plan: -- EKG -- Chest X-ray -- Labs -- IV Fluids -- Blood/ Urine Culture -- Urinalysis -- Reassess and disposition Prior Visits: Notes and results from previous visits were reviewed. Patient was last seen in the emergency department on 02/08/17. The patient was seen in the emergency department for evaluation of fever and drainage from left extremity wound. The patient was hospitalized. Progress Notes: EKG: Ordered, reviewed, and independently interpreted the EKG. Rate : 102 BPM Rhythm : Sinus Tachycardia Interpretation : Bifasicular blocks and non- specific T- wave abnormalities. Chest X-ray from [facility] on 03/15/2017 which showed right lower lobe pneumonia. CHEST X-RAY Dictator : Bonny Cotter MD Report Date : 03/16/2017 12:47:51 IMPRESSION: No evidence of new infiltrate or consolidation in the lungs. Cardiomegaly and mild pulmonary vascular congestion. CT Chest without contrast Dictator : Bonny Cotter MD Report Date : 03/16/2017 15:35:35 IMPRESSION: Focal opacity/airspace consolidation at the right middle lobe may represent pneumonia, versus atelectasis or neoplasm. Follow-up reassessment is recommended. Cardiomegaly and small right pleural effusion. Mildly enlarged main pulmonary artery. Moderate size hiatus hernia. 03/16/17 16:12: Oxy Sat 91% on room air. Pneumonia severity index is 93 (age minus 10 + correction + hematicrit <30 percent) which puts her at a level of admission. Case discussed with Dr. Slava Chavira. Will be admitted to hospitalist service. Patient received broad spectrum antibiotics to cover for correction acquired antibiotics. - Lab Interpretations Lab Results: 03/16/17 12:00 03/16/17 12:00 Lab Results 03/16/17 12:00: Phosphorus 4.5, Magnesium 1.9 03/16/17 12:00: Sodium 140, Chloride 105, Potassium 4.7, Carbon Dioxide 30, Anion Gap 10, BUN 27 H, Creatinine 1.3 H, Est GFR ( Amer) 47, Est GFR ( Non-Af Amer) 39, Random Glucose 128 H, Calcium 8.3 L, Phosphorus 4.4, Magnesium 1.9, Total Bilirubin 0.6, AST 35, ALT 24, Alkaline Phosphatase 151 H D, Total Protein 7.1, Albumin 2.7 L, Globulin 4.4, Albumin/Globulin Ratio 0.6 L 03/16/17 12:00: pO2 172 H, VBG pH 7.44 H, VBG pCO2 44.0, VBG HCO3 29.9 H, VBG Total CO2 31.3 H, VBG O2 Sat (Calc) 99.7 H, VBG Base Excess 5.0 H, VBG Potassium 4.8, Sodium 139.0, Chloride 109.0 H, Glucose 133 H, Lactate 1.4, FiO2 21.0, Venous Blood Potassium 4.8 03/16/17 12:00: Urine Color Yellow, Urine Appearance Cloudy, Urine pH 6.5, Ur Specific [place] 1.010, Urine Protein Negative, Urine Glucose (UA) Negative, Urine Ketones Negative, Urine Blood Small H, Urine Nitrate Negative, Urine Bilirubin Negative, Urine Urobilinogen 0.2, Ur Leukocyte Esterase Large H, Urine RBC 2 - 5, Urine WBC Tntc, Ur Epithelial Cells 1 - 3, Urine Bacteria Mod 03/16/17 12:00: PT 16.9 H, INR 1.52 H, APTT 40.7 H 03/16/17 12:00: WBC 7.1 D, RBC 3.64, Hgb 8.8 L, Hct 29.9 L, MCV 82.1, MCH 24.2 L, MCHC 29.4 L, RDW 19.9 H, Plt Count 229, MPV 10.9, Gran % 58.0, Lymph % (Auto ) 26.1, [place] % (Auto) 9.3 H, Eos % (Auto) 5.9 H, Baso % (Auto) 0.7, Gran # 4.09 , Lymph # 1.8, [place] # 0.7 H, Eos # 0.4, Baso # 0.05 I have reviewed the lab results: Yes - RAD Interpretation Radiology Orders: 03/16/17 12:04 CHEST PORTABLE [RAD] Stat 03/16/17 13:08 CHEST W/O CONTRAST [CT] Stat - EKG Interpretation Interpreted by ED Physician: Yes Type: 12 lead EKG - Medication Orders Current Medication Orders: Acetaminophen (Tylenol 325mg Tab) 650 mg PO Q6H PRN PRN Reason: Fever >100.4 F Albuterol/Ipratropium (Duoneb 3 Mg/0.5 Mg (3 Ml) Ud) 3 ml IH Q6H [facility] Last Admin: 03/16/17 20:04 Dose: 3 ml Apixaban (Eliquis) 2.5 mg PO BID KEO PRN Reason: Protocol Last Admin: 03/16/17 20:10 Dose: 2.5 mg Ascorbic Acid (Vitamin C 500 Mg Tab) 500 mg PO DAILY [facility] Famotidine (Pepcid) 20 mg PO 1000,2200 [facility] Ferrous Sulfate (Feosol) 324 mg PO BID [facility] Meropenem 1 gm/ Dextrose 100 mls @ 100 mls/hr IVPB Q8 [facility]O PRN Reason: Protocol Stop: 03/17/17 06:59 Vancomycin HCl (Vancomycin 1gm) 1 gm in 250 mls @ 167 mls/hr IVPB Q12H [facility]O PRN Reason: Protocol Last Admin: 03/16/17 20:10 Dose: 167 mls/hr eMAR Start Stop Document 03/16/17 20:10 TAV (Rec: 03/16/17 20:12 TAV [id number]) Intravenous Solution Start Date 03/16/17 Start Time 20:12 End Date 03/16/17 End time 21:45 Total Infusion Time 93 Insulin Human Regular (Humulin R Low) 0 units SC ACHS KEO PRN Reason: Protocol Insulin Lispro Protam/Lispro Human (Humalog Mix 75/25) 5 units SC ACD KEO Insulin Lispro Protam/Lispro Human (Humalog Mix 75/25) 10 units SC ACB [facility] Magnesium Oxide (Mag-Ox) 400 mg PO DAILY [facility] Metoprolol Tartrate (Lopressor) 50 mg PO 0800,1800 [facility] Last Admin: 03/16/17 20:10 Dose: 50 mg Montelukast Sodium (Singulair) 10 mg PO HS [facility] Oxycodone/Acetaminophen (Percocet 5/325 Mg Tab) 1 tab PO BID PRN PRN Reason: Pain, severe (8-10) Stop: 03/19/17 18:01 Pantoprazole Sodium (Protonix Inj) 40 mg IVP DAILY [facility] Last Admin: 03/16/17 20:15 Dose: 40 mg IVP Administration Document 03/16/17 20:15 TAV (Rec: 03/16/17 20:15 TAV [id number]) Charges for Administration # of IVP Administrations 1 Pregabalin (Lyrica) 50 mg PO BID [facility] Last Admin: 03/16/17 20:17 Dose: 50 mg Vitamin B Complex/Vit C/Folic Acid (Nephro-Shereen) 1 tab PO DAILY [facility] Zinc Sulfate (Zinc Sulfate 220 Mg Cap) 220 mg PO DAILY [facility] Discontinued Medications Sodium Chloride (Sodium Chloride 0.9%) 1,000 mls @ 100 mls/hr IV .Q10H [facility] Last Admin: 03/16/17 12:19 Dose: 100 mls/hr eMAR Start Stop Document 03/16/17 12:19 LA (Rec: 03/16/17 12:26 LA [facility] [place]-[id number]) Intravenous Solution Start Date 03/16/17 Start Time 12:26 Vancomycin HCl (Vancomycin 1gm) 1 gm in 250 mls @ 167 mls/hr IVPB STAT STA PRN Reason: Protocol Stop: 03/16/17 17:23 Last Admin: 03/16/17 15:54 Dose: Meropenem 1 gm/ Dextrose 100 mls @ 100 mls/hr IVPB STAT STA PRN Reason: Protocol Stop: 03/16/17 16:55 Last Admin: 03/16/17 17:01 Dose: 100 mls/hr eMAR Start Stop Document 03/16/17 17:01 LA (Rec: 03/16/17 17:01 LA [facility] [place]-[id number]) Intravenous Solution Start Date 03/16/17 Start Time 17:01 - Scribe Statement The provider has reviewed the documentation as recorded by the Scribe Lizette Joseph Provider Scribe Attestation: All medical record entries made by the Scribe were at my direction and personally dictated by me. I have reviewed the chart and agree that the record accurately reflects my personal performance of the history, physical exam, medical decision making, and the department course for this patient. I have also personally directed, reviewed, and agree with the discharge instructions and disposition. Disposition/Present on Arrival - Present on Arrival Any Indicators Present on Arrival: No History of DVT/PE: No History of Uncontrolled Diabetes: Yes Urinary Catheter: No History of Decub. Ulcer: No History Surgical Site Infection Following: None - Disposition Have Diagnosis and Disposition been Completed?: Yes Diagnosis: Pneumonia Disposition: HOSPITALIZED Disposition Time: 16:03 Patient Plan: Admission Condition: FAIR
[2017-03-16] MEDS ORDERED: Sodium Chloride 0.9% 1,000 ML IV SCH (12:15)
[2017-03-16 12:20] LABS: BASO # 0.05 K/mm3 (0.0-2.0); BASO % 0.7 % (0.0-3.0); EOS # 0.4 (0.0-0.7); EOS % 5.9 % (1.5-5.0); GRAN # 4.09 (1.4-6.5); HEMATOCRIT 29.9 % (36.0-48.0); LYMPH # 1.8 (1.2-3.4); LYMPH % 26.1 % (22.0-35.0); MEAN CELL VOLUME 82.1 fl (80.0-105.0); MEAN CORPUSCULAR HEMOGLOBIN 24.2 pg (25.0-35.0); MEAN CORPUSCULAR HGB CONC 29.4 g/dl (31.0-37.0); MEAN PLATELET VOLUME 10.9 fl (7.0-11.0); MONO # 0.7 (0.1-0.6); MONO % 9.3 % (1.0-6.0); RED CELL DISTRIBUTION WIDTH 19.9 % (11.5-14.5); VENOUS BLOOD PH 7.44 (7.32-7.43); WHITE BLOOD COUNT 7.1 10^3/ul (4.5-11.0)
[2017-03-16 12:21] LABS: PH,URINE 6.5 (4.7-8.0); URINE BILIRUBIN NEGATIVE (NEGATIVE); URINE BLOOD SMALL (NEGATIVE); URINE GLUCOSE (UA) NEGATIVE (NEGATIVE); URINE KETONE NEGATIVE (NEGATIVE); URINE LEUKOCYTE ESTERASE LARGE Leu/uL (NEGATIVE); URINE PROTEIN NEGATIVE mg/dL (<30 mg/dL); URINE UROBILINOGEN 0.2 E.U./dL (<1 E.U./dL)
[2017-03-16 12:22] LABS: URINE APPEARANCE CLOUDY (CLEAR); URINE COLOR YELLOW (YELLOW)
[2017-03-16 12:29] LABS: INR 1.52 (0.93-1.08); PARTIAL THROMBOPLASTIN TIME 40.7 Seconds (25.1-36.5)
[2017-03-16 12:30] LABS: URINE WBC TNTC /hpf (0-6)
[2017-03-16 12:31] LABS: URINE BACTERIA MOD (NEG)
[2017-03-16 12:32] LABS: ALB/GLOB RATIO 0.6 (1.1-1.8); BILIRUBIN,TOTAL 0.6 mg/dL (0.2-1.3); CALCIUM 8.3 mg/dL (8.4-10.5); MAGNESIUM 1.9 mg/dL (1.7-2.2); PHOSPHOROUS 4.4 mg/dL (2.5-4.5); POTASSIUM 4.7 mmol/L (3.6-5.0); TOTAL PROTEIN 7.1 g/dL (5.8-8.3)
--- NOTE | 2017-03-16 12:49 | RAD ---
HISTORY: Sepsis Patient COMPARISON: Comparison is made to 02/08/2017 FINDINGS: LUNGS: Mild pulmonary vascular congestion is again noted. No evidence of new infiltrate or consolidation in the lungs PLEURA: No significant pleural effusion identified, no pneumothorax apparent. CARDIOVASCULAR: Cardiomegaly is again noted. Single wire left-sided pacemaker/ AICD is again seen in place. OSSEOUS STRUCTURES: No significant abnormalities. VISUALIZED UPPER ABDOMEN: Normal. OTHER FINDINGS: None. IMPRESSION: No evidence of new infiltrate or consolidation in the lungs. Cardiomegaly and mild pulmonary vascular congestion.
--- NOTE | 2017-03-16 15:37 | CT ---
PROCEDURE: CT Chest without contrast HISTORY: cough r/o pna COMPARISON: Comparison is made to the previous study dated 02/03/2015 TECHNIQUE: Contiguous axial images were obtained through the chest without intravenous contrast enhancement. Sagittal and coronal reconstructions were performed. Radiation dose (DLP): 434.38 mGy-cm. This CT exam was performed using one or more of the following dose reduction techniques: Automated exposure control, adjustment of the mA and/or kV according to patient size, and/or use of iterative reconstruction technique. FINDINGS: LUNGS: Elongated shape for focal opacity/airspace consolidation at the right middle lobe associated with slight adjacent bronchiectasis. The differential diagnosis includes pneumonia, versus atelectasis or neoplasm. Small tubular opacity seen at the left lung base likely atelectasis. MEDIASTINUM: Unremarkable thoracic aorta. No aneurysm. The heart is mildly to moderately enlarged. There is a pacemaker/AICD wires seen extending to the right ventricle. Main pulmonary artery is mildly enlarged. No lymphadenopathy. PLEURA: Small right pleural effusion is noted. BONES: Diffuse osteopenia noted. Advanced degenerative changes are noted at the spine. UPPER ABDOMEN: Moderate to large size hiatus hernia seen. OTHER FINDINGS: None. IMPRESSION: Focal opacity/airspace consolidation at the right middle lobe may represent pneumonia, versus atelectasis or neoplasm. Follow-up reassessment is recommended. Cardiomegaly and small right pleural effusion. Mildly enlarged main pulmonary artery. Moderate size hiatus hernia.
[2017-03-16] MEDS ORDERED: Vancomycin 1gm in NS 250ml 1 GM/250 ML BAG IVPB STA (15:54)
[2017-03-16] MEDS ORDERED: Meropenem 1 GM in Dextrose 5% In Water 100 ML IVPB STA (15:56)
[2017-03-16] MEDS ORDERED: Oxycodone/Acetaminophen 5/325 mg Tab PO PRN (17:51)
[2017-03-16 18:26] LABS: MAGNESIUM 1.9 mg/dL (1.7-2.2); PHOSPHOROUS 4.5 mg/dL (2.5-4.5)
[2017-03-16] MEDS ORDERED: Vancomycin 1gm in NS 250ml 1 GM/250 ML BAG IVPB SCH (19:00)
[2017-03-16 19:58] VITALS: BMI 32.0
[2017-03-16] MEDS: Albuterol-Ipratrop 3 mg / 0.5 (3 ml) UD IH SCH (20:04)
--- NOTE | 2017-03-16 21:19 | CP.PCM.CON ---
History of Present Illness - History of Present Illness History of Present Illness: Infectious Disease Consultation: March 16, 2017 81 yo female well known to me sent from [facility] for pneumonia. Patient with known left lower leg gangrene. On IV antibiotics of meropenem after desensitized on last hospitalization. Patient with increasing cough and rhinorrhea. No reports of fevers or chills. Chest X-ray here is negative. CT scan of chest showing right middle lobe opacity versus infiltrate. 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 No known tobacco, EtOH, or illicit drug use. Active Medications Acetaminophen (Tylenol 325mg Tab) 650 mg PO Q6H PRN PRN Reason: Fever >100.4 F Albuterol/Ipratropium (Duoneb 3 Mg/0.5 Mg (3 Ml) Ud) 3 ml IH Q6H [facility] Last Admin: 03/16/17 20:04 Dose: 3 ml Apixaban (Eliquis) 2.5 mg PO BID [facility] PRN Reason: Protocol Last Admin: 03/16/17 20:10 Dose: 2.5 mg Ascorbic Acid (Vitamin C 500 Mg Tab) 500 mg PO DAILY [facility] Famotidine (Pepcid) 20 mg PO 1000,2200 [facility] Ferrous Sulfate (Feosol) 324 mg PO BID [facility] Meropenem 1 gm/ Dextrose 100 mls @ 100 mls/hr IVPB Q8 [facility] PRN Reason: Protocol Stop: 03/17/17 06:59 Vancomycin HCl (Vancomycin 1gm) 1 gm in 250 mls @ 167 mls/hr IVPB Q12H [facility] PRN Reason: Protocol Last Admin: 03/16/17 20:10 Dose: 167 mls/hr Insulin Human Regular (Humulin R Low) 0 units SC ACHS [facility] PRN Reason: Protocol Insulin Lispro Protam/Lispro Human (Humalog Mix 75/25) 5 units SC ACD [facility] Insulin Lispro Protam/Lispro Human (Humalog Mix 75/25) 10 units SC ACB [facility] Magnesium Oxide (Mag-Ox) 400 mg PO DAILY [facility] Metoprolol Tartrate (Lopressor) 50 mg PO 0800,1800 [facility] Last Admin: 03/16/17 20:10 Dose: 50 mg Montelukast Sodium (Singulair) 10 mg PO HS [facility] Oxycodone/Acetaminophen (Percocet 5/325 Mg Tab) 1 tab PO BID PRN PRN Reason: Pain, severe (8-10) Stop: 03/19/17 18:01 Pantoprazole Sodium (Protonix Inj) 40 mg IVP DAILY [facility] Last Admin: 03/16/17 20:15 Dose: 40 mg Pregabalin (Lyrica) 50 mg PO BID [facility] Last Admin: 03/16/17 20:17 Dose: 50 mg Vitamin B Complex/Vit C/Folic Acid (Nephro-Shereen) 1 tab PO DAILY [facility] Zinc Sulfate (Zinc Sulfate 220 Mg Cap) 220 mg PO DAILY [facility] Family Hx: none given ROS: no fevers, chills, cough, nausea, vomiting, diarrhea, headaches, dizziness, chest pain, abdominal pain, depression, anxiety, melena, hematura, hematemesis, hematochezia. Left leg swelling and lymphedema. Past Patient History - Infectious Disease Hx of Infectious Diseases: None - Tetanus Immunizations Tetanus Immunization: Unknown - Past Medical History & Family History Past Medical History?: Yes - Past Social History Smoking Status: Never Smoked - CARDIAC Hx Hypertension: Yes Hx Pacemaker: No Other/Comment: L chest ICD - PULMONARY Hx Chronic Obstructive Pulmonary Disease (COPD): Yes - NEUROLOGICAL Hx Paralysis: No - HEENT Hx HEENT Problems: Yes Hx Cataracts: Yes (BILATERAL SURGERY) - RENAL Hx Chronic Kidney Disease: Yes Hx Neurogenic Bladder: Yes - ENDOCRINE/METABOLIC Hx Diabetes Mellitus Type 2: Yes - HEMATOLOGICAL/ONCOLOGICAL Hx Anemia: Yes Hx Blood Transfusions: No Hx Blood Transfusion Reaction: No - INTEGUMENTARY Hx Dermatological Problems: Yes (CELLULITIS,LEFT VENOUS STASIS ULCER) Other/Comment: cellulitis left ankle wound, left foot red and +2 edema, foul smelling dng noted to left ankle wound - MUSCULOSKELETAL/RHEUMATOLOGICAL Hx Musculoskeletal Disorders: Yes - GASTROINTESTINAL Hx Gastrointestinal Disorders: Yes Hx Gastroesophageal Reflux: Yes Other/Comment: diaphragmatic hernia - GENITOURINARY/GYNECOLOGICAL Hx Reproductive Disorders: No - PSYCHIATRIC Hx Depression: Yes Hx Emotional Abuse: No Hx Physical Abuse: No Hx Substance Use: No - SURGICAL HISTORY Other/Comment: L chest ICD. L upper arm PICC - ANESTHESIA Hx Anesthesia: Yes Hx Anesthesia Reactions: No Hx Malignant Hyperthermia: No Meds Allergies/Adverse Reactions: Allergies Allergy/AdvReac Type Severity Reaction Status Date / Time banana Allergy RASH Verified 02/08/17 14:47 Influenza Virus Vaccines Allergy RASH Verified 02/08/17 14:47 kiwi Allergy RASH Verified 02/08/17 14:47 Penicillins Allergy RASH Verified 02/08/17 14:47 pneumococcal vaccine Allergy RASH Verified 02/08/17 14:47 strawberry Allergy RASH Verified 02/08/17 14:47 Sulfa (Sulfonamide Allergy RASH Verified 02/08/17 14:47 Antibiotics) tomato Allergy RASH Verified 02/08/17 14:47 - Medications Medications: Current Medications Acetaminophen (Tylenol 325mg Tab) 650 mg PO Q6H PRN PRN Reason: Fever >100.4 F Albuterol/Ipratropium (Duoneb 3 Mg/0.5 Mg (3 Ml) Ud) 3 ml IH Q6H [facility] Last Admin: 03/16/17 20:04 Dose: 3 ml Apixaban (Eliquis) 2.5 mg PO BID [facility] PRN Reason: Protocol Last Admin: 03/16/17 20:10 Dose: 2.5 mg Ascorbic Acid (Vitamin C 500 Mg Tab) 500 mg PO DAILY [facility] Famotidine (Pepcid) 20 mg PO 1000,2200 [facility] Ferrous Sulfate (Feosol) 324 mg PO BID [facility] Meropenem 1 gm/ Dextrose 100 mls @ 100 mls/hr IVPB Q8 [facility] PRN Reason: Protocol Stop: 03/17/17 06:59 Vancomycin HCl (Vancomycin 1gm) 1 gm in 250 mls @ 167 mls/hr IVPB Q12H [facility] PRN Reason: Protocol Last Admin: 03/16/17 20:10 Dose: 167 mls/hr Insulin Human Regular (Humulin R Low) 0 units SC ACHS [facility] PRN Reason: Protocol Insulin Lispro Protam/Lispro Human (Humalog Mix 75/25) 5 units SC ACD [facility] Insulin Lispro Protam/Lispro Human (Humalog Mix 75/25) 10 units SC ACB [facility] Magnesium Oxide (Mag-Ox) 400 mg PO DAILY [facility] Metoprolol Tartrate (Lopressor) 50 mg PO 0800,1800 [facility] Last Admin: 03/16/17 20:10 Dose: 50 mg Montelukast Sodium (Singulair) 10 mg PO [facility] Oxycodone/Acetaminophen (Percocet 5/325 Mg Tab) 1 tab PO BID PRN PRN Reason: Pain, severe (8-10) Stop: 03/19/17 18:01 Pantoprazole Sodium (Protonix Inj) 40 mg IVP DAILY [facility] Last Admin: 03/16/17 20:15 Dose: 40 mg Pregabalin (Lyrica) 50 mg PO BID [facility] Last Admin: 03/16/17 20:17 Dose: 50 mg Vitamin B Complex/Vit C/Folic Acid (Nephro-Shereen) 1 tab PO DAILY [facility] Zinc Sulfate (Zinc Sulfate 220 Mg Cap) 220 mg PO DAILY [facility] Physical Exam - Constitutional Appears: Non-toxic, No Acute Distress, Chronically Ill - Head Exam Head Exam: ATRAUMATIC, NORMOCEPHALIC - Eye Exam Eye Exam: EOMI, PERRL Pupil Exam: NORMAL ACCOMODATION, PERRL - ENT Exam ENT Exam: Mucous Membranes Moist, Normal External Ear Exam, TM's Normal Bilaterally - Neck Exam Neck exam: Positive for: Full Rom, Normal Inspection - Respiratory Exam Respiratory Exam: Clear to Auscultation Bilateral, NORMAL BREATHING PATTERN. absent: Rales, Rhonchi, Respiratory Distress - Cardiovascular Exam Cardiovascular Exam: REGULAR RHYTHM, RRR, +S1, +S2 - GI/Abdominal Exam GI & Abdominal Exam: Normal Bowel Sounds, Soft. absent: Distended, Tenderness - Rectal Exam Rectal Exam: Deferred, NORMAL INSPECTION - Extremities Exam Additional comments: left lower leg chronic venous stasis. +2 edema with deformities. - Neurological Exam Neurological exam: Alert, CN II-XII Intact, Oriented x3 - Psychiatric Exam Psychiatric exam: Normal Affect, Normal Mood - Skin Additional comments: As above. Results - Vital Signs Recent Vital Signs: Last Vital Signs Temp 98.3 F 03/16/17 19:49 Pulse 74 03/16/17 20:08 Resp 20 03/16/17 19:49 BP 134/70 03/16/17 19:49 Pulse Ox 96 03/16/17 18:00 - Labs Result Diagrams: 03/16/17 12:00 03/16/17 12:00 Labs: Laboratory Results - last 24 hr 03/16/17 18:11 POC Glucose (mg/dL) 96 Assessment & Plan - Assessment and Plan (Free Text) Assessment: 81 yo [place] [facility] [place] of her left leg. The patient with no new symptoms. Multiple allergis. Contine current care. Monitor left leg. Thank you for allowing me to participate in the care of this patient, we will follow with you.
[2017-03-16] MEDS: Meropenem 1 GM in Dextrose 5% In Water 100 ML IVPB SCH (22:08)
[2017-03-17] MEDS: Albuterol-Ipratrop 3 mg / 0.5 (3 ml) UD IH SCH ×3 (02:10→13:10)
[2017-03-17] MEDS: Insulin Reg-LOW-Coverage SC SCH ×3 (03:31→12:22)
[2017-03-17] MEDS: Meropenem 1 GM in Dextrose 5% In Water 100 ML IVPB SCH (05:08)
--- NOTE | 2017-03-17 05:27 | CP.PCM.HP ---
History of Present Illness - History of Present Illness History of Present Illness: Patient is an 81 year old female with a past medical history of hypertension, atrial fibrillation, COPD, IDDM sent from [facility] with complaints of patient having pneumonia. CR negative for pneumonia however CT chest positive. Patient was recently admitted for gangrene of left leg. Patient states she experienced only one episode of coughing this morning because she almost choked on a jelly good. Denies having a baseline or ongoing cough, admits to a baseline rhinorrhea stating her nose is always running. Patient says she feels fine had no symptoms. Denies shortness of breath, fevers , chills, nausea, vomiting, diarrhea, abdominal pain, weakness, dizziness, chest pain. PSHx: Denies PMHx: Hypertension, Cataracts, Atrial Fibrillation, COPD, IDDM All: infleunza virus vaccines, penicillins, SocHx: denies smoking, etoh, illicit drug use FamHx: DM Meds: please refer to MAR Present on Admission - Present on Admission Any Indicators Present on Admission: Yes Review of Systems - Constitutional Constitutional: absent: Chills, Fever, Headache, Night Sweats - EENT Eyes: absent: Blind Spots, Blurred Vision Ears: absent: Ear Discharge, Ear Pain Nose/Mouth/Throat: absent: Nasal Congestion, Nasal Discharge - Breasts Breasts: absent: Change in Shape, Mass - Cardiovascular Cardiovascular: absent: Chest Pain, Chest Pain at Rest - Respiratory Respiratory: absent: Dyspnea, Hemoptysis - Gastrointestinal Gastrointestinal: absent: Abdominal Pain, Belching - Genitourinary Genitourinary: absent: Difficulty Urinating, Dysuria - Musculoskeletal Musculoskeletal: absent: Atrophy, Back Pain - Integumentary Integumentary: absent: Alopecia, Bleeding Lesions - Neurological Neurological: absent: Abnormal Hearing, Burning Sensations - Psychiatric Psychiatric: absent: Anxiety, Depression - Endocrine Endocrine: absent: Fatigue, Polyuria Past Patient History - Infectious Disease Hx of Infectious Diseases: None - Tetanus Immunizations Tetanus Immunization: Unknown - Past Medical History & Family History Past Medical History?: Yes - Past Social History Smoking Status: Never Smoked - CARDIAC Hx Hypertension: Yes Hx Pacemaker: No Other/Comment: L chest ICD - PULMONARY Hx Chronic Obstructive Pulmonary Disease (COPD): Yes - NEUROLOGICAL Hx Paralysis: No - HEENT Hx HEENT Problems: Yes Hx Cataracts: Yes (BILATERAL SURGERY) - RENAL Hx Chronic Kidney Disease: Yes Hx Neurogenic Bladder: Yes - ENDOCRINE/METABOLIC Hx Diabetes Mellitus Type 2: Yes - HEMATOLOGICAL/ONCOLOGICAL Hx Anemia: Yes Hx Blood Transfusions: No Hx Blood Transfusion Reaction: No - INTEGUMENTARY Hx Dermatological Problems: Yes (CELLULITIS,LEFT VENOUS STASIS ULCER) Other/Comment: cellulitis left ankle wound, left foot red and +2 edema, foul smelling dng noted to left ankle wound - MUSCULOSKELETAL/RHEUMATOLOGICAL Hx Musculoskeletal Disorders: Yes - GASTROINTESTINAL Hx Gastrointestinal Disorders: Yes Hx Gastroesophageal Reflux: Yes Other/Comment: diaphragmatic hernia - GENITOURINARY/GYNECOLOGICAL Hx Reproductive Disorders: No - PSYCHIATRIC Hx Depression: Yes Hx Emotional Abuse: No Hx Physical Abuse: No Hx Substance Use: No - SURGICAL HISTORY Other/Comment: L chest ICD. L upper arm PICC - ANESTHESIA Hx Anesthesia: Yes Hx Anesthesia Reactions: No Hx Malignant Hyperthermia: No Meds Allergies/Adverse Reactions: Allergies Allergy/AdvReac Type Severity Reaction Status Date / Time banana Allergy RASH Verified 02/08/17 14:47 Influenza Virus Vaccines Allergy RASH Verified 02/08/17 14:47 kiwi Allergy RASH Verified 02/08/17 14:47 Penicillins Allergy RASH Verified 02/08/17 14:47 pneumococcal vaccine Allergy RASH Verified 02/08/17 14:47 strawberry Allergy RASH Verified 02/08/17 14:47 Sulfa (Sulfonamide Allergy RASH Verified 02/08/17 14:47 Antibiotics) tomato Allergy RASH Verified 02/08/17 14:47 Physical Exam - Constitutional Appears: Non-toxic, No Acute Distress - Head Exam Head Exam: ATRAUMATIC, NORMAL INSPECTION, NORMOCEPHALIC - Eye Exam Eye Exam: EOMI, Normal appearance - ENT Exam ENT Exam: Mucous Membranes Moist, Normal Exam - Neck Exam Neck exam: Positive for: Normal Inspection - Respiratory Exam Respiratory Exam: Clear to Auscultation Bilateral, NORMAL BREATHING PATTERN. absent: Rales, Rhonchi, Wheezes - Cardiovascular Exam Cardiovascular Exam: REGULAR RHYTHM, +S1, +S2 - GI/Abdominal Exam GI & Abdominal Exam: Normal Bowel Sounds, Soft - Back Exam Back exam: NORMAL INSPECTION - Neurological Exam Neurological exam: Alert, CN II-XII Intact, Oriented x3 - Psychiatric Exam Psychiatric exam: Normal Affect, Normal Mood - Skin Skin Exam: Normal Color, Warm Results - Vital Signs Recent Vital Signs: Last Vital Signs Temp 98.3 F 03/16/17 19:49 Pulse 74 03/16/17 20:08 Resp 20 03/16/17 19:49 BP 134/70 03/16/17 19:49 Pulse Ox 96 03/16/17 18:00 - Labs Result Diagrams: 03/16/17 12:00 03/16/17 12:00 Labs: Laboratory Results - last 24 hr 03/16/17 18:11 POC Glucose (mg/dL) 96 Assessment & Plan - Assessment and Plan (Free Text) Assessment: Patient is an 81 year old female with a past medical history of hypertension, atrial fibrillation, COPD, IDDM presenting with diagnosis of pneumonia from [facility] Plan: 1. Pneumonia - CT chest reveals pneumonia - Merem, Vanc - Procalcitonin - CRP - Blood cultures - Sputum culture - Influenza A and B testing - Mycobac stain - Legionella urine Ag - NC 2L 2. COPD - Duonebs - Monteleukast 3. IDDM - Insulin 5 units SC ACD, 1 units SC ACB 4. Atrial fibrillation - stable at this time - continue home med eliquis 5. Diabetic neuropathy - continue home pregabalin DVT/GI prophylaxis - Eliquis/Pepcid
[2017-03-17 06:50] LABS: BASO # 0.04 K/mm3 (0.0-2.0); BASO % 0.8 % (0.0-3.0); EOS # 0.3 (0.0-0.7); EOS % 4.8 % (1.5-5.0); GRAN # 3.34 (1.4-6.5); GRAN % 64.6 % (50.0-68.0); HEMATOCRIT 27.5 % (36.0-48.0); LYMPH % 19.7 % (22.0-35.0); MEAN CELL VOLUME 82.1 fl (80.0-105.0); MEAN CORPUSCULAR HEMOGLOBIN 23.9 pg (25.0-35.0); MEAN CORPUSCULAR HGB CONC 29.1 g/dl (31.0-37.0); MEAN PLATELET VOLUME 10.8 fl (7.0-11.0); MONO # 0.5 (0.1-0.6); MONO % 10.1 % (1.0-6.0); WHITE BLOOD COUNT 5.2 10^3/ul (4.5-11.0)
[2017-03-17 07:21] LABS: ALB/GLOB RATIO 0.6 (1.1-1.8); ALKALINE PHOSPHATASE 128 U/L (38-126); ALT/SGPT 21 U/L (7-56); AST/SGOT 37 U/L (14-36); BILIRUBIN,TOTAL 0.7 mg/dL (0.2-1.3); BLOOD UREA NITROGEN 24 mg/dL (7-21); CALCIUM 8.1 mg/dL (8.4-10.5); CARBON DIOXIDE 32 mmol/L (21-33); CHLORIDE 105 mmol/L (98-107); GFR AFRICAN-AMERICAN > 60; GLUCOSE,RANDOM 105 mg/dL (70-110); POTASSIUM 4.1 mmol/L (3.6-5.0); SODIUM 140 mmol/L (132-148); TOTAL PROTEIN 6.4 g/dL (5.8-8.3)
[2017-03-17] MEDS ORDERED: Insulin Lispro (humaLOG) MIX 75/25(10 ml) SC SCH ×2 (07:30→16:30)
[2017-03-17] MEDS ORDERED: Magnesium Oxide 400 mg Tab UD PO SCH (10:00)
[2017-03-17] MEDS ORDERED: Multivitamin Vitamin B Complex (Nephro-Vite) Tab PO SCH (10:00)
--- NOTE | 2017-03-17 10:15 | CARD ---
APPROVED REPORT EKG Measurement Heart [id number] IN [id number] <Conclusion> Suspect arm lead reversal, interpretation assumes no reversal Sinus tachycardia Right bundle branch block Left posterior fascicular block Bifascicular block T wave abnormality, consider lateral ischemia Abnormal ECG
--- NOTE | 2017-03-17 15:30 | CP.PCM.DIS ---
<Marysol Russell - Last Filed: 03/17/17 15:14> Provider - Provider Date of Admission: 03/16/17 16:03 Attending physician: Don Davey MD Primary care physician: Sonny Sparks MD Consults: ID: Dr Alvares Time Spent in preparation of Discharge (in minutes): 45 Hospital Course - Lab Results Lab Results: Most Recent Lab Values WBC 5.2 10^3/ul (4.5-11.0) D 03/17/17 06:30 RBC 3.35 10^6/uL (3.5-6.1) L 03/17/17 06:30 Hgb 8.0 g/dL (12.0-16.0) L 03/17/17 06:30 Hct 27.5 % (36.0-48.0) L 03/17/17 06:30 MCV 82.1 fl (80.0-105.0) 03/17/17 06:30 MCH 23.9 pg (25.0-35.0) L 03/17/17 06:30 MCHC 29.1 g/dl (31.0-37.0) L 03/17/17 06:30 RDW 20.0 % (11.5-14.5) H 03/17/17 06:30 Plt Count 193 10^3/uL (120.0-450.0) 03/17/17 06:30 MPV 10.8 fl (7.0-11.0) 03/17/17 06:30 Gran % 64.6 % (50.0-68.0) 03/17/17 06:30 Lymph % (Auto) 19.7 % (22.0-35.0) L 03/17/17 06:30 Stark % (Auto) 10.1 % (1.0-6.0) H 03/17/17 06:30 Eos % (Auto) 4.8 % (1.5-5.0) 03/17/17 06:30 Baso % (Auto) 0.8 % (0.0-3.0) 03/17/17 06:30 Gran # 3.34 (1.4-6.5) 03/17/17 06:30 Lymph # 1.0 (1.2-3.4) L 03/17/17 06:30 Stark # 0.5 (0.1-0.6) 03/17/17 06:30 Eos # 0.3 (0.0-0.7) 03/17/17 06:30 Baso # 0.04 K/mm3 (0.0-2.0) 03/17/17 06:30 PT 16.9 SECONDS (9.4-12.5) H 03/16/17 12:00 INR 1.52 (0.93-1.08) H 03/16/17 12:00 APTT 38.6 Seconds (25.1-36.5) H 03/17/17 06:30 pO2 172 mm/Hg (30-55) H 03/16/17 12:00 VBG pH 7.44 (7.32-7.43) H 03/16/17 12:00 VBG pCO2 44.0 (40-60) 03/16/17 12:00 VBG HCO3 29.9 mmol/l (21-28) H 03/16/17 12:00 VBG Total CO2 31.3 mmol.L (22-28) H 03/16/17 12:00 VBG O2 Sat (Calc) 99.7 % (40-65) H 03/16/17 12:00 VBG Base Excess 5.0 mmol/L (0.0-2.0) H 03/16/17 12:00 VBG Potassium 4.8 mmol/L (3.6-5.2) 03/16/17 12:00 Sodium 139.0 mmol/L (132-148) 03/16/17 12:00 Chloride 109.0 mmol/L (98-107) H 03/16/17 12:00 Glucose 133 mg/dl (65-105) H 03/16/17 12:00 Lactate 1.4 mmol/L (0.7-2.1) 03/16/17 12:00 FiO2 21.0 % 03/16/17 12:00 Sodium 140 mmol/L (132-148) 03/17/17 06:30 Potassium 4.1 mmol/L (3.6-5.0) 03/17/17 06:30 Chloride 105 mmol/L (98-107) 03/17/17 06:30 Carbon Dioxide 32 mmol/L (21-33) 03/17/17 06:30 Anion Gap 7 (10-20) L 03/17/17 06:30 BUN 24 mg/dL (7-21) H 03/17/17 06:30 Creatinine 1.0 mg/dL (0.7-1.2) 03/17/17 06:30 Est GFR ( Amer) > 60 03/17/17 06:30 Est GFR (Non-Af Amer) 53 03/17/17 06:30 POC Glucose (mg/dL) 96 mg/dL (65-110) 03/16/17 18:11 Random Glucose 105 mg/dL (70-110) 03/17/17 06:30 Calcium 8.1 mg/dL (8.4-10.5) L 03/17/17 06:30 Phosphorus 4.5 mg/dL (2.5-4.5) 03/16/17 12:00 Magnesium 1.9 mg/dL (1.7-2.2) 03/16/17 12:00 Total Bilirubin 0.7 mg/dL (0.2-1.3) 03/17/17 06:30 AST 37 U/L (14-36) H 03/17/17 06:30 ALT 21 U/L (7-56) 03/17/17 06:30 Alkaline Phosphatase 128 U/L (38-126) H 03/17/17 06:30 C-React Prot High Sens > 15.00 mg/L (1.00-3.00) H 03/16/17 12:00 Total Protein 6.4 g/dL (5.8-8.3) 03/17/17 06:30 Albumin 2.4 g/dL (3.0-4.8) L 03/17/17 06:30 Globulin 4.0 gm/dL 03/17/17 06:30 Albumin/Globulin Ratio 0.6 (1.1-1.8) L 03/17/17 06:30 Procalcitonin 0.24 NG/ML (0.19-0.49) 03/16/17 12:00 Venous Blood Potassium 4.8 mmol/L (3.6-5.2) 03/16/17 12:00 Urine Color Yellow (YELLOW) 03/16/17 12:00 Urine Appearance Cloudy (CLEAR) 03/16/17 12:00 Urine pH 6.5 (4.7-8.0) 03/16/17 12:00 Ur Specific [place] 1.010 (1.005-1.035) 03/16/17 12:00 Urine Protein Negative mg/dL (<30 mg/dL) 03/16/17 12:00 Urine Glucose (UA) Negative mg/dL (NEGATIVE) 03/16/17 12:00 Urine Ketones Negative mg/dL (NEGATIVE) 03/16/17 12:00 Urine Blood Small (NEGATIVE) H 03/16/17 12:00 Urine Nitrate Negative (NEGATIVE) 03/16/17 12:00 Urine Bilirubin Negative (NEGATIVE) 03/16/17 12:00 Urine Urobilinogen 0.2 E.U./dL (<1 E.U./dL) 03/16/17 12:00 Ur Leukocyte Esterase Large Matilda/uL (NEGATIVE) H 03/16/17 12:00 Urine RBC 2 - 5 /hpf (0-2) 03/16/17 12:00 Urine WBC Tntc /hpf (0-6) 03/16/17 12:00 Ur Epithelial Cells 1 - 3 /hpf (0-5) 03/16/17 12:00 Urine Bacteria Mod (NEG) 03/16/17 12:00 - Hospital Course Hospital Course: 81 year old female with a past medical history of hypertension, atrial fibrillation, COPD, IDDM sent from [facility] with complaints of increasing cough and rhinorrhea. No reports of fevers or chills. Patient was recently admitted for gangrene of left leg. Patient states she experienced only one episode of coughing this morning because she almost choked on a jelly good. Denies having a baseline or ongoing cough, admits to a baseline rhinorrhea stating her nose is always running. Chest X-ray here is negative. CT scan of chest showing right middle lobe opacity versus infiltrate. ID Dr. Alvares consulted, started on Merem & Vancomycin. Blood cultures negative x 2. Pt was also treated for COPD with Duonebs & Monteleukast. Upon DC, pt is to fu with PMD. [facility] is to [facility]. Wet to dry dressin to wound daily. Dry wrap with Kerlix. Continue IV vanco and IV merem for 1 week. cbc , cmp every other day. Monitor creatinine. Follow up with Dr. Stone, Gen surgery in his office next week. Discharge Exam - Head Exam Head Exam: ATRAUMATIC, NORMAL INSPECTION, NORMOCEPHALIC - Eye Exam Eye Exam: EOMI, Normal appearance, PERRL Pupil Exam: NORMAL ACCOMODATION, PERRL - ENT Exam ENT Exam: Mucous Membranes Moist - Respiratory Exam Respiratory Exam: Clear to PA & Lateral, NORMAL BREATHING PATTERN, UNREMARKABLE - Cardiovascular Exam Cardiovascular Exam: RRR, +S1, +S2 - GI/Abdominal Exam GI & Abdominal Exam: Normal Bowel Sounds, Soft. absent: Tenderness - Extremities Exam Additional comments: Bandaged, left gangrene LE - Neurological Exam Neurological exam: Alert, CN II-XII Intact, Normal Gait, Oriented x3, Reflexes Normal - Psychiatric Exam Psychiatric exam: Normal Affect, Normal Mood - Skin Skin Exam: Dry, Intact, Normal Color, Warm Discharge Plan - Discharge Medications Prescriptions: Meropenem [Merrem IV] 500 mg IV Q8H 7 Days pds Vancomycin/0.9 % Sod Chloride [Vanco 1 Gram/250 ml-0.9% NaCl] 1 gm IV DAILY 7 Days plast..bag - Follow Up Plan Condition: FAIR Disposition: TRANSF TO SNF Instructions: Heart Failure (GEN), Viral Pneumonia (GEN), Pneumococcal Vaccine for Adults (GEN), Renal Failure Diet (GEN), Peripherally Inserted Central Catheters and Midline Catheters (DC), Influenza (GEN), Basic Carbohydrate Counting (GEN), Acute Wound Care (GEN), Fall Prevention (GEN) Additional Instructions: 1. Follow up with PMD. 2. Wet to dry dressin to wound daily. dry wrap with Kerlix. 3. Continue IV vanco and IV merem for 1 week. cbc , cmp every other day. Monitor creatinine. 4. Follow up with Dr. Stone surgery in his office next week. Referrals: Sonny Sparks MD [Primary Care Provider] - Follow up with primary <Don Davey - Last Filed: 03/18/17 13:39> Provider - Provider Date of Admission: 03/16/17 16:03 Attending physician: Don Davey MD Primary care physician: Sonny Sparks MD Hospital Course - Lab Results Lab Results: Most Recent Lab Values WBC 5.2 10^3/ul (4.5-11.0) D 03/17/17 06:30 RBC 3.35 10^6/uL (3.5-6.1) L 03/17/17 06:30 Hgb 8.0 g/dL (12.0-16.0) L 03/17/17 06:30 Hct 27.5 % (36.0-48.0) L 03/17/17 06:30 MCV 82.1 fl (80.0-105.0) 03/17/17 06:30 MCH 23.9 pg (25.0-35.0) L 03/17/17 06:30 MCHC 29.1 g/dl (31.0-37.0) L 03/17/17 06:30 RDW 20.0 % (11.5-14.5) H 03/17/17 06:30 Plt Count 193 10^3/uL (120.0-450.0) 03/17/17 06:30 MPV 10.8 fl (7.0-11.0) 03/17/17 06:30 Gran % 64.6 % (50.0-68.0) 03/17/17 06:30 Lymph % (Auto) 19.7 % (22.0-35.0) L 03/17/17 06:30 Stark % (Auto) 10.1 % (1.0-6.0) H 03/17/17 06:30 Eos % (Auto) 4.8 % (1.5-5.0) 03/17/17 06:30 Baso % (Auto) 0.8 % (0.0-3.0) 03/17/17 06:30 Gran # 3.34 (1.4-6.5) 03/17/17 06:30 Lymph # 1.0 (1.2-3.4) L 03/17/17 06:30 Stark # 0.5 (0.1-0.6) 03/17/17 06:30 Eos # 0.3 (0.0-0.7) 03/17/17 06:30 Baso # 0.04 K/mm3 (0.0-2.0) 03/17/17 06:30 PT 16.9 SECONDS (9.4-12.5) H 03/16/17 12:00 INR 1.52 (0.93-1.08) H 03/16/17 12:00 APTT 38.6 Seconds (25.1-36.5) H 03/17/17 06:30 pO2 172 mm/Hg (30-55) H 03/16/17 12:00 VBG pH 7.44 (7.32-7.43) H 03/16/17 12:00 VBG pCO2 44.0 (40-60) 03/16/17 12:00 VBG HCO3 29.9 mmol/l (21-28) H 03/16/17 12:00 VBG Total CO2 31.3 mmol.L (22-28) H 03/16/17 12:00 VBG O2 Sat (Calc) 99.7 % (40-65) H 03/16/17 12:00 VBG Base Excess 5.0 mmol/L (0.0-2.0) H 03/16/17 12:00 VBG Potassium 4.8 mmol/L (3.6-5.2) 03/16/17 12:00 Sodium 139.0 mmol/L (132-148) 03/16/17 12:00 Chloride 109.0 mmol/L (98-107) H 03/16/17 12:00 Glucose 133 mg/dl (65-105) H 03/16/17 12:00 Lactate 1.4 mmol/L (0.7-2.1) 03/16/17 12:00 FiO2 21.0 % 03/16/17 12:00 Sodium 140 mmol/L (132-148) 03/17/17 06:30 Potassium 4.1 mmol/L (3.6-5.0) 03/17/17 06:30 Chloride 105 mmol/L (98-107) 03/17/17 06:30 Carbon Dioxide 32 mmol/L (21-33) 03/17/17 06:30 Anion Gap 7 (10-20) L 03/17/17 06:30 BUN 24 mg/dL (7-21) H 03/17/17 06:30 Creatinine 1.0 mg/dL (0.7-1.2) 03/17/17 06:30 Est GFR ( Amer) > 60 03/17/17 06:30 Est GFR (Non-Af Amer) 53 03/17/17 06:30 POC Glucose (mg/dL) 238 mg/dL (65-110) H 03/17/17 16:34 Random Glucose 105 mg/dL (70-110) 03/17/17 06:30 Calcium 8.1 mg/dL (8.4-10.5) L 03/17/17 06:30 Phosphorus 4.5 mg/dL (2.5-4.5) 03/16/17 12:00 Magnesium 1.9 mg/dL (1.7-2.2) 03/16/17 12:00 Total Bilirubin 0.7 mg/dL (0.2-1.3) 03/17/17 06:30 AST 37 U/L (14-36) H 03/17/17 06:30 ALT 21 U/L (7-56) 03/17/17 06:30 Alkaline Phosphatase 128 U/L (38-126) H 03/17/17 06:30 C-React Prot High Sens > 15.00 mg/L (1.00-3.00) H 03/16/17 12:00 Total Protein 6.4 g/dL (5.8-8.3) 03/17/17 06:30 Albumin 2.4 g/dL (3.0-4.8) L 03/17/17 06:30 Globulin 4.0 gm/dL 03/17/17 06:30 Albumin/Globulin Ratio 0.6 (1.1-1.8) L 03/17/17 06:30 Procalcitonin 0.24 NG/ML (0.19-0.49) 03/16/17 12:00 Venous Blood Potassium 4.8 mmol/L (3.6-5.2) 03/16/17 12:00 Urine Color Yellow (YELLOW) 03/16/17 12:00 Urine Appearance Cloudy (CLEAR) 03/16/17 12:00 Urine pH 6.5 (4.7-8.0) 03/16/17 12:00 Ur Specific [place] 1.010 (1.005-1.035) 03/16/17 12:00 Urine Protein Negative mg/dL (<30 mg/dL) 03/16/17 12:00 Urine Glucose (UA) Negative mg/dL (NEGATIVE) 03/16/17 12:00 Urine Ketones Negative mg/dL (NEGATIVE) 03/16/17 12:00 Urine Blood Small (NEGATIVE) H 03/16/17 12:00 Urine Nitrate Negative (NEGATIVE) 03/16/17 12:00 Urine Bilirubin Negative (NEGATIVE) 03/16/17 12:00 Urine Urobilinogen 0.2 E.U./dL (<1 E.U./dL) 03/16/17 12:00 Ur Leukocyte Esterase Large Matilda/uL (NEGATIVE) H 03/16/17 12:00 Urine RBC 2 - 5 /hpf (0-2) 03/16/17 12:00 Urine WBC Tntc /hpf (0-6) 03/16/17 12:00 Ur Epithelial Cells 1 - 3 /hpf (0-5) 03/16/17 12:00 Urine Bacteria Mod (NEG) 03/16/17 12:00 Attending/Attestation - Attestation I have personally seen and examined this patient.: Yes I have fully participated in the care of the patient.: Yes I have reviewed all pertinent clinical information, including history, physical exam and plan: Yes Notes (Text): 03/18/17 13:37 Attending note; Patient seen and examined with resident. Patient is a 81 year female with history of IDDM, hypothyroidism, chronic left leg swelling and copd who presented with cough and shortness of breath. Found to have community-acquired pneumonia. Treated with IV vancomycin and Merrem. patient is clinically stable. Will be discharged with IV vanco and merem for another 7 days. ID evaluation appreciated. Transfer to [facility] today. Upon discharge the patient will follow-up with PMD . Follow up with surgery Dr. Guthrie in 1 week. Diagnosis; Community-acquired pneumonia Diabetes Chronic nonhealing left leg ulcers
--- NOTE | 2017-03-17 16:23 | CP.PCM.PN ---
Subjective - Date & Time of Evaluation Date of Evaluation: 03/17/17 Time of Evaluation: 15:01 - Subjective Subjective: Infectious Disease Follow Up: March 17, 2017 81 yo female well known to me sent from [facility] for pneumonia. Patient with known left lower leg gangrene. On IV antibiotics of meropenem after desensitized on last hospitalization. Patient with increasing cough and rhinorrhea. No reports of fevers or chills. Chest X-ray here is negative. CT scan of chest showing right middle lobe opacity versus infiltrate. Patient appears comfortable currently. Objective - Vital Signs/Intake and Output Vital Signs (last 24 hours): Temp Pulse Resp BP Pulse Ox 97.4 F L 100 H 20 113/74 99 03/17/17 08:46 03/17/17 08:46 03/17/17 08:46 03/17/17 08:46 03/17/17 08:46 Intake and Output: 03/17/17 03/17/17 06:59 18:59 Intake Total 240 800 Balance 240 800 - Medications Medications: Current Medications Acetaminophen (Tylenol 325mg Tab) 650 mg PO Q6H PRN PRN Reason: Fever >100.4 F Albuterol/Ipratropium (Duoneb 3 Mg/0.5 Mg (3 Ml) Ud) 3 ml IH Q6H [facility] Last Admin: 03/17/17 13:10 Dose: 3 ml Apixaban (Eliquis) 2.5 mg PO BID KEO PRN Reason: Protocol Last Admin: 03/17/17 10:30 Dose: 2.5 mg Ascorbic Acid (Vitamin C 500 Mg Tab) 500 mg PO DAILY [facility] Last Admin: 03/17/17 10:30 Dose: 500 mg Famotidine (Pepcid) 20 mg PO 1000,2200 [facility] Last Admin: 03/17/17 10:30 Dose: 20 mg Ferrous Sulfate (Feosol) 324 mg PO BID [facility] Last Admin: 03/17/17 10:30 Dose: 324 mg Vancomycin HCl (Vancomycin 1gm) 1 gm in 250 mls @ 167 mls/hr IVPB Q12H KEO PRN Reason: Protocol Last Admin: 03/16/17 20:10 Dose: 167 mls/hr Insulin Human Regular (Humulin R Low) 0 units SC ACHS KEO PRN Reason: Protocol Last Admin: 03/17/17 12:22 Dose: 1 units Insulin Lispro Protam/Lispro Human (Humalog Mix 75/25) 5 units SC ACD [facility] Insulin Lispro Protam/Lispro Human (Humalog Mix 75/25) 10 units SC ACB [facility] Last Admin: 03/17/17 08:10 Dose: Not Given Magnesium Oxide (Mag-Ox) 400 mg PO DAILY [facility] Last Admin: 03/17/17 10:30 Dose: 400 mg Metoprolol Tartrate (Lopressor) 50 mg PO 0800,1800 [facility] Last Admin: 03/17/17 08:45 Dose: 50 mg Montelukast Sodium (Singulair) 10 mg PO HS [facility] Last Admin: 03/16/17 22:09 Dose: 10 mg Oxycodone/Acetaminophen (Percocet 5/325 Mg Tab) 1 tab PO BID PRN PRN Reason: Pain, severe (8-10) Stop: 03/19/17 18:01 Pantoprazole Sodium (Protonix Inj) 40 mg IVP DAILY [facility] Last Admin: 03/17/17 11:59 Dose: 40 mg Pregabalin (Lyrica) 50 mg PO BID [facility] Last Admin: 03/17/17 10:30 Dose: 50 mg Vitamin B Complex/Vit C/Folic Acid (Nephro-Shereen) 1 tab PO DAILY [facility] Last Admin: 03/17/17 10:30 Dose: 1 tab Zinc Sulfate (Zinc Sulfate 220 Mg Cap) 220 mg PO DAILY [facility] Last Admin: 03/17/17 10:30 Dose: 220 mg - Labs Labs: 03/17/17 06:30 03/17/17 06:30 PT 16.9 SECONDS (9.4-12.5) H 03/16/17 12:00 INR 1.52 (0.93-1.08) H 03/16/17 12:00 APTT 38.6 Seconds (25.1-36.5) H 03/17/17 06:30 - Constitutional Appears: Non-toxic, No Acute Distress, Chronically Ill - Head Exam Head Exam: ATRAUMATIC, NORMOCEPHALIC - Eye Exam Eye Exam: EOMI, PERRL Pupil Exam: NORMAL ACCOMODATION, PERRL - ENT Exam ENT Exam: Mucous Membranes Moist, Normal External Ear Exam, TM's Normal Bilaterally - Respiratory Exam Respiratory Exam: Decreased Breath Sounds, NORMAL BREATHING PATTERN. absent: Rales, Rhonchi, Wheezes - Cardiovascular Exam Cardiovascular Exam: REGULAR RHYTHM, RRR, +S1, +S2 - GI/Abdominal Exam GI & Abdominal Exam: Soft, Normal Bowel Sounds. absent: Distended, Tenderness - Extremities Exam Additional comments: left lower leg chronic venous stasis. +2 edema with deformities. - Neurological Exam Neurological Exam: Alert, Awake, CN II-XII Intact, Oriented x3 - Psychiatric Exam Psychiatric exam: Normal Affect, Normal Mood - Skin Skin Exam: Intact, Normal Color Assessment and Plan - Assessment and Plan (Free Text) Assessment: 81 yo female [place] [facility] [place] of her left leg. The patient with no new symptoms. Multiple allergies. Continue current care. Monitor left leg. Vancomycin IV added for pneumonia presentation. Consider up to 14 days of Vancomycin therapy. Thank you for allowing me to participate in the care of this patient, we will follow with you.
[2017-03-17 16:25] VITALS: BP 114/54; PULSE 97; RESP 18; TEMP 98.7; O2SAT 100
== END 2017-03-17 17:15 ==
LOC: ED 11:45 → INTOOBSV 16:03 → ERH 16:03 → 5RSO 17:46 → UNDODISIN 03-17 14:44
PROVIDERS: ADMIT Hospitalist; ATTEND Internal Medicine
DX: J18.9 Pneumonia, unspecified organism (principal); J44.0 Chronic obstructive pulmonary disease with (acute) lower respiratory infection; I48.2 Chronic atrial fibrillation; E03.9 Hypothyroidism, unspecified; N18.9 Chronic kidney disease, unspecified; E11.52 Type 2 diabetes mellitus with diabetic peripheral angiopathy with gangrene; E11.622 Type 2 diabetes mellitus with other skin ulcer; L97.929 Non-pressure chronic ulcer of unspecified part of left lower leg with unspecified severity; L03.116 Cellulitis of left lower limb; E11.22 Type 2 diabetes mellitus with diabetic chronic kidney disease; I87.2 Venous insufficiency (chronic) (peripheral); K21.9 Gastro-esophageal reflux disease without esophagitis; E11.40 Type 2 diabetes mellitus with diabetic neuropathy, unspecified; M10.9 Gout, unspecified; I12.9 Hypertensive chronic kidney disease with stage 1 through stage 4 chronic kidney disease, or unspecified chronic kidney disease; N31.9 Neuromuscular dysfunction of bladder, unspecified; Z79.4 Long term (current) use of insulin
CPT/HCPCS: 36415; 71010; 71250; 80053; 81001; 82803; 82948; 83735; 84100; 84145; 85025; 85610; 85730; 86140; 86710; 87040; 87086; 93005; 94640; 99284; C9113; G0378; J2185; J7040

== ENCOUNTER 2017-08-25 16:52 | Inpatient (IN) | payer MEDICARE, MEDICAID ==
[2017-08-25 16:57] VITALS: BMI 29.8
[2017-08-25] MEDS ORDERED: Vancomycin 1gm in NS 250ml 1 GM/250 ML BAG IVPB STA (17:27)
[2017-08-25] MEDS ORDERED: Cefepime 1gm in NS 100ml 1 GM/100 ML BAG IVPB STA (17:27)
[2017-08-25] MEDS ORDERED: Sodium Chloride 0.9% 1,000 ML IV STA (17:41)
--- NOTE | 2017-08-25 17:41 | ED PDOC ---
Arrival/HPI - General Chief Complaint: Altered Mental Status Time Seen by Provider: 08/25/17 17:00 Historian: Patient - History of Present Illness Narrative History of Present Illness (Text): 08/25/17 17:17 Leta Lorenzo is an 82 year old female, whose past medical history includes Diabetes, A-fib on Eliquis, hypothyroidism, chronic left leg swelling and cellulitis, and COPD, complaining of persistent cough for a few days. Patient denies any pain or any other complaints at this time. PMD: Dr. Sparks Time/Duration: < week Symptom Onset: Gradual Symptom Course: Unchanged Activities at Onset: Rest Context: Home Past Medical History - Provider Review Nursing Documentation Reviewed: Yes - Infectious Disease Hx of Infectious Diseases: None - Tetanus Immunization Tetanus Immunization: Unknown - Reproductive Menopause: Yes - Cardiac Hx Hypertension: Yes Hx Pacemaker: No Other/Comment: L chest ICD - Pulmonary Hx Chronic Obstructive Pulmonary Disease (COPD): Yes - Neurological Hx Paralysis: No - HEENT Hx HEENT Disorder: Yes Hx Cataracts: Yes (BILATERAL SURGERY) - Renal Hx Renal Disorder: Yes Hx Neurogenic Bladder: Yes - Endocrine/Metabolic Hx Diabetes Mellitus Type 2: Yes - Hematological/Oncological Hx Anemia: Yes Hx Blood Transfusions: No Hx Blood Transfusion Reaction: No - Integumentary Hx Dermatological Disorder: Yes (CELLULITIS,LEFT VENOUS STASIS ULCER) Other/Comment: cellulitis left ankle wound, left foot red and +2 edema, foul smelling dng noted to left ankle wound - Musculoskeletal/Rheumatological Hx Musculoskeletal Disorders: Yes - Gastrointestinal Hx Gastrointestinal Disorders: Yes Hx Gastroesophageal Reflux: Yes Other/Comment: diaphragmatic hernia - Genitourinary/Gynecological Hx Reproductive Disorders: No - Psychiatric Hx Depression: Yes Hx Emotional Abuse: No Hx Physical Abuse: No Hx Substance Use: No - Past Surgical History Past Surgical History: Non-Contributing - Surgical History Other/Comment: L chest ICD. L upper arm PICC - Anesthesia Hx Anesthesia: Yes Hx Anesthesia Reactions: No Hx Malignant Hyperthermia: No - Suicidal Assessment Feels Threatened In Home Enviroment: No Family/Social History - Physician Review Nursing Documentation Reviewed: Yes Family/Social History: No Known Family HX Smoking Status: Never Smoked Hx Alcohol Use: No Hx Substance Use: No Hx Substance Use Treatment: No Allergies/Home Meds Allergies/Adverse Reactions: Allergies banana Allergy (Verified 02/08/17 14:47) RASH Influenza Virus Vaccines Allergy (Verified 02/08/17 14:47) RASH kiwi Allergy (Verified 02/08/17 14:47) RASH Penicillins Allergy (Verified 02/08/17 14:47) RASH pneumococcal vaccine Allergy (Verified 02/08/17 14:47) RASH strawberry Allergy (Verified 02/08/17 14:47) RASH Sulfa (Sulfonamide Antibiotics) Allergy (Verified 02/08/17 14:47) RASH tomato Allergy (Verified 02/08/17 14:47) RASH Home Medications: Home Meds Medication Instructions Recorded Confirmed Albuterol/Ipratropium [Duoneb 3 3 ml IH Q6H 03/16/17 08/26/17 mg/0.5 mg (3 ml) UD] Colchicine [Colcrys] 1 tab PO DAILY 03/16/17 08/26/17 Epoetin Reed [Procrit] 40,000 units IM Q7D 03/16/17 08/26/17 Ferrous Sulfate [Feosol] 1 tab PO BID 03/16/17 08/26/17 Folic Acid/Vit B Complex and C 1 tab PO DAILY 03/16/17 08/26/17 [Emma-Shereen Tablet] oxyCODONE/Acetaminophen [Percocet 1 tab PO BID 03/16/17 08/26/17 5/325 mg Tab] Review of Systems - Review of Systems Constitutional: absent: Fevers, Night Sweats Eyes: absent: Vision Changes ENT: absent: Hearing Changes Respiratory: Cough Cardiovascular: absent: Chest Pain, Palpitations Gastrointestinal: absent: Abdominal Pain Genitourinary Female: absent: Dysuria, Frequency Musculoskeletal: absent: Arthralgias Skin: absent: Rash, Pruritis Neurological: absent: Headache Endocrine: absent: Diaphoresis Hemo/Lymphatic: absent: Adenopathy Psychiatric: absent: Anxiety, Depression Physical Exam Vital Signs Reviewed: Yes Vital Signs Temp Pulse Resp BP Pulse Ox 08/26/17 01:37 97.9 F 84 18 123/64 97 08/25/17 21:55 97.4 F L 86 20 100/56 L 99 08/25/17 21:54 100/56 L 08/25/17 18:01 100.1 F H 08/25/17 17:32 100.3 F H 08/25/17 17:05 99.2 F 82 18 105/52 L 95 Temperature: Afebrile Blood Pressure: Hypotensive Pulse: Regular Respiratory Rate: Normal Pain Distress: None Medical Decision Making ED Course and Treatment: 08/25/17 17:39 Impression: 82 year old female complaining of persistent cough for a few days. Plan: -- EKG -- Chest X-ray -- VBG and Blood Culture -- Urinalysis and Urine Culture -- Labs -- Duoneb, Maxipime, Solu-medrol, and Vancomycin -- Reassess and disposition Prior Visits: Notes and results from previous visits were reviewed. Patient was last seen in the emergency department on 03/16/17 for pneumonia. Patient was admitted to hospitalist care for further evaluation. Progress Notes: 08/25/17 19:18 Chest X-ray: Creator : Ly Rey MD IMPRESSION: Multifocal consolidation in the right lung. Follow-up to resolution is advised. 08/26/17 16:25 pt febrile on arrival antibiotics dosed. pcn allergy is rash. will cover with cefepime to give nosocomial/psuedomonal coverage. lasix dosed. accepted by dr corbin for admission. needs iv antibiotics. - Lab Interpretations Lab Results: 08/25/17 17:45 08/25/17 17:45 Lab Results 08/25/17 17:45: Sodium 146, Chloride 111 H, Potassium 5.0, Carbon Dioxide 22, Anion Gap 18, BUN 37 H, Creatinine 1.8 H, Est GFR ( Amer) 32, Est GFR ( Non-Af Amer) 27, Random Glucose 218 H, Calcium 7.9 L, Magnesium 2.7 H, Total Bilirubin 1.2, AST 34, ALT 21, Alkaline Phosphatase 112, Lactate Dehydrogenase 496, Total Creatine Kinase < 20 L, Troponin I < 0.01, NT-Pro-B Natriuret Pep 62405 H, Total Protein 6.8, Albumin 3.0, Globulin 3.8, Albumin/Globulin Ratio 0.8 L 08/25/17 17:45: PT 41.2 H, INR 3.52 H*, APTT 45.3 H 08/25/17 17:45: WBC 7.2 D, RBC 4.56, Hgb 12.2 D, Hct 41.3, MCV 90.6 D, MCH 26.8, MCHC 29.5 L, RDW 21.7 H, Plt Count 175, MPV 11.4 H, Gran % 70.0 H, Lymph % (Auto) 16.4 L, [place] % (Auto) 11.5 H, Eos % (Auto) 1.7, Baso % (Auto) 0.4, Gran # 5.01, Lymph # (Auto) 1.2, [place] # (Auto) 0.8 H, Eos # (Auto) 0.1, Baso # ( Auto) 0.03 08/25/17 17:45: pO2 224 H, VBG pH 7.34, VBG pCO2 45.0, VBG HCO3 24.3, VBG Total CO2 25.7, VBG O2 Sat (Calc) 100.2 H, VBG Base Excess -1.7 L, VBG Potassium 5.2, Sodium 140.0, Chloride 113.0 H, Glucose 233 H, Lactate 1.9, FiO2 21.0, Venous Blood Potassium 5.2 I have reviewed the lab results: Yes - RAD Interpretation Radiology Orders: 08/25/17 HEAD W/O CONTRAST [CT] Stat 08/25/17 17:20 CHEST PORTABLE [RAD] Stat - Medication Orders Current Medication Orders: Acetaminophen (Tylenol 325mg Tab) 650 mg PO Q6H PRN PRN Reason: Fever >100.4 F Apixaban (Eliquis) 2.5 mg PO BID KEO PRN Reason: Protocol Last Admin: 08/26/17 11:26 Dose: 2.5 mg Colchicine (Colocrys) 0.6 mg PO DAILY KEO Last Admin: 08/26/17 11:25 Dose: 0.6 mg Famotidine (Pepcid) 20 mg PO 2200 KEO Vancomycin HCl (Vancomycin 1gm) 1 gm in 250 mls @ 167 mls/hr IVPB DAILY KEO PRN Reason: Protocol Last Admin: 08/26/17 12:47 Dose: 167 mls/hr eMAR Start Stop Document 08/26/17 12:47 (Rec: 08/26/17 12:48 [id number]) Intravenous Solution Start Date 08/26/17 Start Time 12:47 End Date 08/26/17 End time 14:17 Total Infusion Time 90 Sodium Chloride (Sodium Chloride 0.9%) 1,000 mls @ 80 mls/hr IV .[id number] [facility] Insulin Detemir (Levemir) 10 unit SC HS [facility] Insulin Human Regular (Humulin R Med) 0 units SC ACHS KEO PRN Reason: Protocol Last Admin: 08/26/17 12:56 Dose: 1 units MAR Blood Glucose Document 08/26/17 12:56 (Rec: 08/26/17 12:56 [place] [id number]) Blood Glucose Finger Stick Blood Glucose (70-120) 166 Subcutaneous Administrations Document 08/26/17 12:56 (Rec: 08/26/17 12:56 [place] [id number]) Charges for Administration # of Subcutaneous Administrations 1 Methylprednisolone (Solu-Medrol) 40 mg IV Q12 [facility] Last Admin: 08/26/17 11:26 Dose: 40 mg eMAR Start Stop Document 08/26/17 11:26 (Rec: 08/26/17 11:26 [place] [id number]) Intravenous Solution Start Date 08/26/17 Start Time 11:26 Montelukast Sodium (Singulair) 10 mg PO HS [facility] Last Admin: 08/25/17 23:46 Dose: 10 mg Discontinued Medications Acetaminophen (Tylenol 325mg Tab) 975 mg PO STAT STA Stop: 08/25/17 17:42 Last Admin: 08/25/17 18:01 Dose: 975 mg MAR Pain/Vitals Document 08/25/17 18:01 FREDDY (Rec: 08/25/17 18:01 FREDDY [id number]) Vitals Temperature (97.6 F-99.6 F) 100.1 F Temperature Source Rectal Albuterol/Ipratropium (Duoneb 3 Mg/0.5 Mg (3 Ml) Ud) 3 ml IH Q15M KEO Stop: 08/25/17 18:01 Last Admin: 08/25/17 18:37 Dose: 3 ml Albuterol/Ipratropium (Duoneb 3 Mg/0.5 Mg (3 Ml) Ud) 3 ml IH Q6H KEO Stop: 08/26/17 10:31 Last Admin: 08/26/17 13:43 Dose: 3 ml Albuterol/Ipratropium (Duoneb 3 Mg/0.5 Mg (3 Ml) Ud) 3 ml IH Q2H PRN PRN Reason: Shortness of Breath Stop: 08/25/17 23:16 Famotidine (Pepcid) 20 mg PO 1000,2200 KEO Furosemide (Lasix) 20 mg IVP STAT STA Stop: 08/25/17 19:51 Last Admin: 08/25/17 21:54 Dose: Not Given Non-Admin Reason: BP Parameters Not Met MAR Blood Pressure Document 08/25/17 21:54 EQ (Rec: 08/25/17 21:54 EQ [id number]) Blood Pressure Blood Pressure (100/60-150/90) 100/56 IVP Administration Document 08/25/17 21:54 EQ (Rec: 08/25/17 21:54 EQ [id number]) Charges for Administration # of IVP Administrations 0 Cefepime HCl (Maxipime 1gm) 1 gm in 100 mls @ 100 mls/hr IVPB STAT STA PRN Reason: Protocol Stop: 08/25/17 18:26 Last Admin: 08/25/17 18:00 Dose: 100 mls/hr eMAR Start Stop Document 08/25/17 18:00 FREDDY (Rec: 08/25/17 18:00 FREDDY [id number]) Intravenous Solution Start Date 08/25/17 Start Time 18:00 End Date 08/25/17 End time 19:00 Total Infusion Time 60 Vancomycin HCl (Vancomycin 1gm) 1 gm in 250 mls @ 167 mls/hr IVPB STAT STA PRN Reason: Protocol Stop: 08/25/17 18:56 Last Admin: 08/25/17 19:36 Dose: 167 mls/hr eMAR Start Stop Document 08/25/17 19:36 EQ (Rec: 08/25/17 19:36 EQ [id number]) Intravenous Solution Start Date 08/25/17 Start Time 19:36 Sodium Chloride (Sodium Chloride 0.9%) 1,000 mls @ 999 mls/hr IV .Q1H1M STA Stop: 08/25/17 18:41 Last Admin: 08/25/17 18:02 Dose: 999 mls/hr eMAR Start Stop Document 08/25/17 18:02 FREDDY (Rec: 08/25/17 18:02 FREDDY [id number]) Intravenous Solution Start Date 08/25/17 Start Time 18:02 End Date 08/25/17 End time 19:02 Total Infusion Time 60 Aztreonam (Azactam 2 Gm) 100 mls @ 100 mls/hr IVPB Q8 KEO PRN Reason: Protocol Stop: 08/26/17 14:59 Last Admin: 08/26/17 14:54 Dose: 100 mls/hr eMAR Start Stop Document 08/26/17 14:54 VM (Rec: 08/26/17 14:54 VM [id number]) Intravenous Solution Start Date 08/26/17 Start Time 14:54 End Date 08/26/17 End time 15:54 Total Infusion Time 60 Insulin Detemir (Levemir) 10 unit SC ONCE ONE Stop: 08/25/17 22:29 Last Admin: 08/26/17 00:26 Dose: 10 unit MAR Blood Glucose Document 08/26/17 00:26 LA (Rec: 08/26/17 00:32 LA [id number]) Blood Glucose Finger Stick Blood Glucose (70-120) 165 Subcutaneous Administrations Document 08/26/17 00:26 LA (Rec: 08/26/17 00:32 LA [id number]) Injection Site MAR Injection Site Right Arm Charges for Administration # of Subcutaneous Administrations 1 Methylprednisolone (Solu-Medrol) 125 mg IVP STAT STA Stop: 08/25/17 17:21 Last Admin: 08/25/17 18:00 Dose: 125 mg IVP Administration Document 08/25/17 18:00 FREDDY (Rec: 08/25/17 18:00 FREDDY [id number]) Charges for Administration # of IVP Administrations 1 Sodium Polystyrene Sulfonate (Kayexalate Susp) 15 gm PO STAT STA Stop: 08/26/17 09:44 Last Admin: 08/26/17 11:31 Dose: 15 gm - Scribe Statement The provider has reviewed the documentation as recorded by the Dione Christianson Provider Scribe Attestation: All medical record entries made by the Scribe were at my direction and personally dictated by me. I have reviewed the chart and agree that the record accurately reflects my personal performance of the history, physical exam, medical decision making, and the department course for this patient. I have also personally directed, reviewed, and agree with the discharge instructions and disposition. Disposition/Present on Arrival - Present on Arrival Any Indicators Present on Arrival: No History of DVT/PE: No History of Uncontrolled Diabetes: Yes Urinary Catheter: No History of Decub. Ulcer: No History Surgical Site Infection Following: None - Disposition Have Diagnosis and Disposition been Completed?: Yes Diagnosis: CHF (congestive heart failure), COPD (chronic obstructive pulmonary disease), Pneumonia Disposition: HOSPITALIZED Disposition Time: 16:26 Condition: FAIR
[2017-08-25 17:57] LABS: BASO # 0.03 K/mm3 (0.0-2.0); BASO % 0.4 % (0.0-3.0); EOS # 0.1 (0.0-0.7); EOS % 1.7 % (1.5-5.0); GRAN # 5.01 (1.4-6.5); HEMOGLOBIN 12.2 g/dL (12.0-16.0); LYMPH # 1.2 (1.2-3.4); LYMPH % 16.4 % (22.0-35.0); MEAN CELL VOLUME 90.6 fl (80.0-105.0); MEAN CORPUSCULAR HEMOGLOBIN 26.8 pg (25.0-35.0); MEAN CORPUSCULAR HGB CONC 29.5 g/dl (31.0-37.0); MEAN PLATELET VOLUME 11.4 fl (7.0-11.0); MONO # 0.8 (0.1-0.6); MONO % 11.5 % (1.0-6.0); RBC 4.56 10^6/uL (3.5-6.1); RED CELL DISTRIBUTION WIDTH 21.7 % (11.5-14.5); WHITE BLOOD COUNT 7.2 10^3/ul (4.5-11.0)
[2017-08-25] MEDS: Albuterol-Ipratrop 3 mg / 0.5 (3 ml) UD IH SCH ×4 (18:01→23:47)
[2017-08-25 18:05] LABS: VENOUS BLOOD GAS BASE EXCESS -1.7 mmol/L (0.0-2.0); VENOUS BLOOD GAS PO2 224 mm/Hg (30-55); VENOUS BLOOD PH 7.34 (7.32-7.43)
--- NOTE | 2017-08-25 18:10 | RAD ---
HISTORY: sob COMPARISON: 03/16/2017. FINDINGS: LUNGS: There is multifocal consolidation in the right lung could and subsegmental atelectasis in the right mid lung. The left lung is clear. PLEURA: No significant pleural effusion identified, no pneumothorax apparent. CARDIOVASCULAR: Persistent mild cardiomegaly. There is a left-sided unipolar permanent pacing device. . OSSEOUS STRUCTURES: No significant abnormalities. VISUALIZED UPPER ABDOMEN: Normal. OTHER FINDINGS: None. IMPRESSION: Multifocal consolidation in the right lung. Follow-up to resolution is advised.
[2017-08-25 18:15] LABS: ALB/GLOB RATIO 0.8 (1.1-1.8); ALT/SGPT 21 U/L (7-56); AST/SGOT 34 U/L (14-36); BLOOD UREA NITROGEN 37 mg/dL (7-21); CALCIUM 7.9 mg/dL (8.4-10.5); GFR AFRICAN-AMERICAN 32; GFR NON-AFRICAN AMERICAN 27
[2017-08-25 18:21] LABS: PARTIAL THROMBOPLASTIN TIME 45.3 Seconds (25.1-36.5); PROTHROMBIN TIME 41.2 SECONDS (9.4-12.5)
[2017-08-25 18:24] LABS: INR 3.52 (0.93-1.08)
[2017-08-25 18:27] LABS: B-TYPE NATRIURETIC PEPTIDE 24400 pg/mL (0-450); TROPONIN I < 0.01 ng/mL
--- NOTE | 2017-08-25 20:48 | CT ---
EXAM: CT Head Without Intravenous Contrast EXAM DATE/TIME: 08/25/2017 12:00 AM CLINICAL HISTORY: The patient age is 82 years old and is female; Signs and symptoms; Altered mental status/memory loss; Additional info: [facility] Facility exam id and description: Ct heads head w/o contrast TECHNIQUE: Axial computed tomography images of the head/brain without intravenous contrast. All CT scans at this facility use one or more dose reduction techniques, viz.: automated exposure control; ma/kV adjustment per patient size (including targeted exams where dose is matched to indication; i.e. head); or iterative reconstruction technique. Coronal and sagittal reformatted images were created and reviewed. COMPARISON: CT - HEAD W/O CONTRAST 2016-03-28 00:22 FINDINGS: Artifacts: Motion artifact limits this study. Brain: There are periventricular foci of hypodensity, likely representing small vessel ischemic disease in a patient this age. The acuity of the white matter disease is indeterminate. The white-godwin differentiation is preserved demonstrating no definitive acute territorial type infarct. No definitive acute intracranial hemorrhage is seen. Calcifications are identified within the bilateral cerebellar lobes and basal ganglia, which are stable. Artifact limits evaluation of the brainstem. Midline shift: There is no midline shift. Ventricles: There is moderate prominence of the ventricles and sulci, compatible with atrophy. Bones/joints: The calvarium demonstrates no evidence for a depressed fracture. There is a focus of hyperdensity within the right frontal skull, stable compared to the prior study. Soft tissues: No acute abnormality. Vasculature: There is atherosclerotic calcification of the intracranial internal carotid arteries. Sinuses: Unremarkable as visualized. No acute sinusitis. Mastoid air cells: Effusions are visualized within the left mastoid air cells. IMPRESSION: 1. No definitive acute intracranial hemorrhage or acute territorial type infarct on this motion limited study. 2. There are periventricular foci of hypodensity, likely representing small vessel ischemic disease in a patient this age. 3. Moderate stable atrophy. 4. Effusions are visualized within the left mastoid air cells.
[2017-08-25] MEDS ORDERED: Insulin Detemir 100 units/ml Vial (Levemir) SC ONE (22:28)
[2017-08-25] MEDS ORDERED: Albuterol-Ipratrop 3 mg / 0.5 (3 ml) UD IH PRN (22:32)
--- NOTE | 2017-08-25 22:42 | CP.PCM.HP ---
<BiStanislav thomasdaylin - Last Filed: 08/26/17 00:17> History of Present Illness - History of Present Illness History of Present Illness: This patient is an 82 year old female with a PMHx of diabetes - A-fib (On Eliquis), Hypothyroidism, chronic left leg swelling/cellulitis, and COPD. Patient was brought in by [facility] for altered mental status. Patient denies that she was ever altered. Her only complaint at this time is cough x 2 weeks that it intermittently productive and a low appetite. Patient denies any fever, chills, headache, SOB, chest pain, abdominal pain, N/V/D, constipation, dysuria, or increased urinary frequency. When asked about urinary symptoms, patient did state "When I have to go, I have to go". Patient admits to sick contacts with people in the intermediate. ROS: As above PMHx: A-fib (On Eliquis), Hypothyroidism, chronic left leg swelling/cellulitis, and COPD, Pacemaker, PSHx: Pacemaker Allergies: Sulfa, Penicillins, Pneumococcal Vaccine, Banana, Influenza Vaccine, tomato, Kiwi SocialHx: Denies tobacco, alcohol, and illicit drug use. Lives at [facility]: 03/2017 for Pneumonia FamHx: Non-Cont. Meds: MAR Reviewed PMD: Dr. Sparks Present on Admission - Present on Admission Any Indicators Present on Admission: No Review of Systems - Review of Systems Review of Systems: As per HPI Past Patient History - Infectious Disease Hx of Infectious Diseases: None - Tetanus Immunizations Tetanus Immunization: Unknown - Past Medical History & Family History Past Medical History?: Yes - Past Social History Smoking Status: Never Smoked - CARDIAC Hx Hypertension: Yes Hx Pacemaker: No Other/Comment: L chest ICD - PULMONARY Hx Chronic Obstructive Pulmonary Disease (COPD): Yes - NEUROLOGICAL Hx Paralysis: No - HEENT Hx HEENT Problems: Yes Hx Cataracts: Yes (BILATERAL SURGERY) - RENAL Hx Chronic Kidney Disease: Yes Hx Neurogenic Bladder: Yes - ENDOCRINE/METABOLIC Hx Diabetes Mellitus Type 2: Yes - HEMATOLOGICAL/ONCOLOGICAL Hx Anemia: Yes Hx Blood Transfusions: No Hx Blood Transfusion Reaction: No - INTEGUMENTARY Hx Dermatological Problems: Yes (CELLULITIS,LEFT VENOUS STASIS ULCER) Other/Comment: cellulitis left ankle wound, left foot red and +2 edema, foul smelling dng noted to left ankle wound - MUSCULOSKELETAL/RHEUMATOLOGICAL Hx Musculoskeletal Disorders: Yes - GASTROINTESTINAL Hx Gastrointestinal Disorders: Yes Hx Gastroesophageal Reflux: Yes Other/Comment: diaphragmatic hernia - GENITOURINARY/GYNECOLOGICAL Hx Reproductive Disorders: No - PSYCHIATRIC Hx Depression: Yes Hx Emotional Abuse: No Hx Physical Abuse: No Hx Substance Use: No - SURGICAL HISTORY Other/Comment: L chest ICD. L upper arm PICC - ANESTHESIA Hx Anesthesia: Yes Hx Anesthesia Reactions: No Hx Malignant Hyperthermia: No Meds Allergies/Adverse Reactions: Allergies Allergy/AdvReac Type Severity Reaction Status Date / Time banana Allergy RASH Verified 02/08/17 14:47 Influenza Virus Vaccines Allergy RASH Verified 02/08/17 14:47 kiwi Allergy RASH Verified 02/08/17 14:47 Penicillins Allergy RASH Verified 02/08/17 14:47 pneumococcal vaccine Allergy RASH Verified 02/08/17 14:47 strawberry Allergy RASH Verified 02/08/17 14:47 Sulfa (Sulfonamide Allergy RASH Verified 02/08/17 14:47 Antibiotics) tomato Allergy RASH Verified 02/08/17 14:47 Physical Exam - Constitutional Appears: Non-toxic - Head Exam Head Exam: NORMAL INSPECTION, NORMOCEPHALIC - Eye Exam Eye Exam: EOMI, Normal appearance. absent: Scleral icterus - ENT Exam ENT Exam: Mucous Membranes Dry - Neck Exam Neck exam: Negative for: Lymphadenopathy - Respiratory Exam Respiratory Exam: Decreased Breath Sounds, Clear to Auscultation Bilateral, NORMAL BREATHING PATTERN - Cardiovascular Exam Cardiovascular Exam: Diastolic murmur, RRR, +S1, +S2 - GI/Abdominal Exam GI & Abdominal Exam: Normal Bowel Sounds, Soft. absent: Tenderness - Extremities Exam Additional comments: Right Lower Ext. No Pedal Edema, Normal capillary Refill Left Lower Ext. Distal - Erythema and Swelling. Currently wrapped. - Neurological Exam Neurological exam: Abnormal Gait (Uses Wheelchair. ), Alert, Oriented x3 - Psychiatric Exam Psychiatric exam: Normal Affect, Normal Mood - Skin Additional comments: Dry, scally, diffuse bruising. Results - Vital Signs Recent Vital Signs: Last Vital Signs Temp 97.4 F L 08/25/17 21:55 Pulse 86 08/25/17 21:55 Resp 20 08/25/17 21:55 BP 100/56 L 08/25/17 21:55 Pulse Ox 99 08/25/17 21:55 - Labs Result Diagrams: 08/25/17 17:45 08/25/17 17:45 Assessment & Plan - Assessment and Plan (Free Text) Assessment: 82 year old female with a PMHx of diabetes - A-fib (On Eliquis), Hypothyroidism , chronic left leg swelling/cellulitis, and COPD. Patient was brought in by [facility] for altered mental status. Admitted for evaluation and treatment of pneumonia. Plan: Pneumonia (HCAP vs CAP) No Acute Changes on Head CT CXR(Adm): Multifocal consolidation in the right lung ED: 1 Dose of 125 SoluMedrol, Stat Tylenol for Fever, Vanc/Cefipime, 1L Fluid Bolus, Lasix 20 IV, DuoNeb ProCal Urine Legionella, MycoPlasma, Strep Pneu Blood/Urine Cultures UA CXR in the Morning Vancomycin/Aztreonam Chest PT Hx of Pulm HTN Last ECHO in 11/18 which showed Normal EF with Severe Pulm HTN and Severe Tricuspid Regurgitation Repeat ECHO Strict I/O Daily Weights Ruiz Catheter ARIEL Hold Diuretics Monitor Hx of COPD Home Singuliar DuoNebs Q6H KEO/Q2H PRN Hx of Hypothyroidism. No Levothyroxine in Home Meds Call pharmacy or PMD in the Morning to confirm Hx of DM Levemir 10 tonight Regular ISS Proph Eliquis Pepcid Heart Healthy Diabetic Diet Patient discussed with Attending Anne Tavarez, PGY-1 <Zeferino De Luna Q - Last Filed: 08/26/17 19:24> Results - Vital Signs Recent Vital Signs: Last Vital Signs Temp 97.5 F L 08/26/17 17:52 Pulse 90 08/26/17 17:52 Resp 19 08/26/17 17:52 BP 128/83 08/26/17 17:52 Pulse Ox 97 08/26/17 01:37 - Labs Result Diagrams: 08/26/17 05:40 08/26/17 05:40 Labs: Laboratory Results - last 24 hr 08/25/17 08/26/17 08/26/17 22:18 00:29 05:40 WBC 5.2 D RBC 4.73 Hgb 12.5 Hct 42.7 MCV 90.3 MCH 26.4 MCHC 29.3 L RDW 21.6 H Plt Count 191 MPV 12.7 H Gran % 90.9 H Lymph % (Auto) 8.1 L [place] % (Auto) 1.0 Eos % (Auto) 0.0 L Baso % (Auto) 0.0 Gran # 4.70 Lymph # (Auto) 0.4 L [place] # (Auto) 0.1 Eos # (Auto) 0.0 Baso # (Auto) 0.00 Neutrophils % (Manual) 89 H Lymphocytes % (Manual) 8 L Monocytes % (Manual) 3 Large Platelets Present Sodium Potassium Chloride Carbon Dioxide Anion Gap BUN Creatinine Est GFR ( Amer) Est GFR (Non-Af Amer) POC Glucose (mg/dL) Random Glucose Calcium Total Bilirubin AST ALT Alkaline Phosphatase NT-Pro-B Natriuret Pep Total Protein Albumin Globulin Albumin/Globulin Ratio Procalcitonin 0.13 L Urine Color Yellow Urine Appearance Clear Urine pH 5.5 Ur Specific Tappen >= 1.030 Urine Protein 30 H Urine Glucose (UA) Negative Urine Ketones Trace H Urine Blood Negative Urine Nitrate Negative Urine Bilirubin Negative Urine Urobilinogen 0.2 Ur Leukocyte Esterase Negative Urine RBC 0 - 2 Urine WBC 0 - 2 Ur Epithelial Cells 0 - 2 Hyaline Casts 0 - 2 08/26/17 08/26/17 08/26/17 05:40 05:40 07:46 WBC RBC Hgb Hct MCV MCH MCHC RDW Plt Count MPV Gran % Lymph % (Auto) [place] % (Auto) Eos % (Auto) Baso % (Auto) Gran # Lymph # (Auto) [place] # (Auto) Eos # (Auto) Baso # (Auto) Neutrophils % (Manual) Lymphocytes % (Manual) Monocytes % (Manual) Large Platelets Sodium 146 Potassium 5.4 H Chloride 111 H Carbon Dioxide 22 Anion Gap 19 BUN 41 H Creatinine 1.8 H Est GFR ( Amer) 32 Est GFR (Non-Af Amer) 27 POC Glucose (mg/dL) 183 H Random Glucose 193 H Calcium 8.2 L Total Bilirubin 1.1 AST 28 ALT 21 Alkaline Phosphatase 111 NT-Pro-B Natriuret Pep 44008 H Total Protein 7.2 Albumin 3.1 Globulin 4.0 Albumin/Globulin Ratio 0.8 L Procalcitonin Urine Color Urine Appearance Urine pH Ur Specific Tappen Urine Protein Urine Glucose (UA) Urine Ketones Urine Blood Urine Nitrate Urine Bilirubin Urine Urobilinogen Ur Leukocyte Esterase Urine RBC Urine WBC Ur Epithelial Cells Hyaline Casts 08/26/17 08/26/17 12:43 17:04 WBC RBC Hgb Hct MCV MCH MCHC RDW Plt Count MPV Gran % Lymph % (Auto) [place] % (Auto) Eos % (Auto) Baso % (Auto) Gran # Lymph # (Auto) [place] # (Auto) Eos # (Auto) Baso # (Auto) Neutrophils % (Manual) Lymphocytes % (Manual) Monocytes % (Manual) Large Platelets Sodium Potassium Chloride Carbon Dioxide Anion Gap BUN Creatinine Est GFR ( Amer) Est GFR (Non-Af Amer) POC Glucose (mg/dL) 166 H 173 H Random Glucose Calcium Total Bilirubin AST ALT Alkaline Phosphatase NT-Pro-B Natriuret Pep Total Protein Albumin Globulin Albumin/Globulin Ratio Procalcitonin Urine Color Urine Appearance Urine pH Ur Specific [place]en Urine Protein Urine Glucose (UA) Urine Ketones Urine Blood Urine Nitrate Urine Bilirubin Urine Urobilinogen Ur Leukocyte Esterase Urine RBC Urine WBC Ur Epithelial Cells Hyaline Casts Attending/Attestation - Attestation I have personally seen and examined this patient.: Yes I have fully participated in the care of the patient.: Yes I have reviewed all pertinent clinical information: Yes
[2017-08-26 00:39] LABS: PH,URINE 5.5 (4.7-8.0); URINE BILIRUBIN NEGATIVE (NEGATIVE); URINE BLOOD NEGATIVE (NEGATIVE); URINE GLUCOSE (UA) NEGATIVE (NEGATIVE); URINE LEUKOCYTE ESTERASE NEGATIVE Leu/uL (NEGATIVE); URINE PROTEIN 30 mg/dL (<30 mg/dL); URINE UROBILINOGEN 0.2 E.U./dL (<1 E.U./dL)
[2017-08-26 00:52] LABS: URINE APPEARANCE CLEAR (CLEAR); URINE COLOR YELLOW (YELLOW)
[2017-08-26 00:55] LABS: URINE EPITHELIAL CELLS 0 - 2 /hpf (0-5); URINE RBC 0 - 2 /hpf (0-2); URINE WBC 0 - 2 /hpf (0-6)
[2017-08-26 00:56] LABS: URINE HYALINE CAST 0 - 2 /hpf
[2017-08-26 06:30] LABS: GRAN % 90.9 % (50.0-68.0); HEMOGLOBIN 12.5 g/dL (12.0-16.0); LYMPH # 0.4 (1.2-3.4); LYMPH % 8.1 % (22.0-35.0); MEAN CELL VOLUME 90.3 fl (80.0-105.0); MEAN CORPUSCULAR HEMOGLOBIN 26.4 pg (25.0-35.0); MEAN CORPUSCULAR HGB CONC 29.3 g/dl (31.0-37.0); MEAN PLATELET VOLUME 12.7 fl (7.0-11.0); MONO # 0.1 (0.1-0.6); PLATELET COUNT 191 10^3/uL (120.0-450.0); RBC 4.73 10^6/uL (3.5-6.1); RED CELL DISTRIBUTION WIDTH 21.6 % (11.5-14.5); WHITE BLOOD COUNT 5.2 10^3/ul (4.5-11.0)
[2017-08-26 06:33] LABS: ALB/GLOB RATIO 0.8 (1.1-1.8); ALBUMIN 3.1 g/dL (3.0-4.8); CALCIUM 8.2 mg/dL (8.4-10.5)
[2017-08-26] MEDS: Aztreonam 2 Gm in NS 100mL 100 ML IVPB SCH ×2 (07:04→14:54)
[2017-08-26] MEDS: Albuterol-Ipratrop 3 mg / 0.5 (3 ml) UD IH SCH ×2 (07:55→13:43)
[2017-08-26] MEDS: Insulin Reg-MEDIUM-Coverage SC SCH ×4 (08:07→21:51)
[2017-08-26 09:05] LABS: LARGE PLATELETS PRESENT; LYMPHOCYTE 8 % (22.0-35.0); MONOCYTE 3 % (1.0-6.0); NEUTROPHIL 89 % (50.0-70.0)
[2017-08-26] MEDS ORDERED: Sod Polystyrene Sulf 15 gm/60 ml Susp PO STA (09:43)
[2017-08-26] MEDS ORDERED: methylPREDNISolone 40 MG in Sodium Chloride 0.9% 100 ML IVPB SCH (10:00)
[2017-08-26] MEDS ORDERED: MethylPREDNISolone 40 mg Vial IVP SCH (10:00)
--- NOTE | 2017-08-26 10:40 | CT ---
PROCEDURE: CT Chest without contrast HISTORY: multifocal pneumonia on CXR COMPARISON: 03/16/2017 TECHNIQUE: Contiguous axial images were obtained through the chest without intravenous contrast enhancement. Sagittal and coronal reconstructions were performed. Radiation dose (DLP): 535.34 mGy-cm. This CT exam was performed using one or more of the following dose reduction techniques: Automated exposure control, adjustment of the mA and/or kV according to patient size, and/or use of iterative reconstruction technique. FINDINGS: LUNGS: Right upper lobe subsegmental atelectasis and right lower lobe subsegmental atelectasis, possibly compressive atelectasis secondary to pleural effusion. No acute infiltrate. MEDIASTINUM: Unremarkable thoracic aorta. No aneurysm. Cardiomegaly. Permanent pacemaker. No pericardial effusion. Main pulmonary artery unremarkable. No vascular congestion. No lymphadenopathy. Moderate hiatal hernia. Fluid noted throughout the esophagus, uncertain significance. This may reflect gastroesophageal reflux. PLEURA: Moderate right pleural effusion. Very small left pleural effusion. Fluid in minor fissure. No pneumothorax BONES: No fracture. Thoracic dextroscoliosis. UPPER ABDOMEN: Mild splenomegaly. OTHER FINDINGS: None. IMPRESSION: Moderate right pleural effusion and trace left pleural effusion. No pneumothorax. Subsegmental atelectasis right upper lobe and right lower lobe. No acute infiltrate. Cardiomegaly with pacemaker.
--- NOTE | 2017-08-26 10:41 | RAD ---
HISTORY: SOB COMPARISON: 08/25/2017 FINDINGS: LUNGS: There is a persistent multi focal infiltrate in the right lung. The left lung remains clear PLEURA: No significant pleural effusion identified, no pneumothorax apparent. CARDIOVASCULAR: Moderate to severe cardiomegaly OSSEOUS STRUCTURES: No significant abnormalities. VISUALIZED UPPER ABDOMEN: Normal. OTHER FINDINGS: None. IMPRESSION: No significant change in multi focal infiltrate in the right lung
--- NOTE | 2017-08-26 11:20 | CARD ---
APPROVED REPORT EKG Measurement Heart [id number] <Conclusion> Wide QRS rhythm Right bundle branch block T wave abnormality, consider inferolateral ischemia Abnormal ECG
[2017-08-26] MEDS: MethylPREDNISolone 40 mg Vial IV SCH ×2 (11:26→21:55)
[2017-08-26] MEDS ORDERED: Sodium Chloride 0.9% 1,000 ML IV SCH (12:30)
[2017-08-26] MEDS: Vancomycin 1gm in NS 250ml 1 GM/250 ML BAG IVPB SCH (12:47)
--- NOTE | 2017-08-26 13:46 | CP.PCM.PN ---
<Nikhil Meneses - Last Filed: 08/26/17 13:38> Subjective - Date & Time of Evaluation Date of Evaluation: 08/26/17 Time of Evaluation: 13:38 - Subjective Subjective: Medicine Progress Note Pt seen and examined at bedside. No acute overnight events. Pt states that her breathing is a little bit better, but feels tired. Pt denies CP, n/v/d, abominal pain, fever, chills, JAY, or dizziness. Objective - Vital Signs/Intake and Output Vital Signs (last 24 hours): Temp Pulse Resp BP Pulse Ox 97 F L 89 19 131/86 97 08/26/17 12:00 08/26/17 12:00 08/26/17 12:00 08/26/17 12:00 08/26/17 01:37 - Medications Medications: Current Medications Acetaminophen (Tylenol 325mg Tab) 650 mg PO Q6H PRN PRN Reason: Fever >100.4 F Apixaban (Eliquis) 2.5 mg PO BID [facility] PRN Reason: Protocol Last Admin: 08/26/17 11:26 Dose: 2.5 mg Colchicine (Colocrys) 0.6 mg PO DAILY [facility] Last Admin: 08/26/17 11:25 Dose: 0.6 mg Famotidine (Pepcid) 20 mg PO 2200 [facility] Aztreonam (Azactam 2 Gm) 100 mls @ 100 mls/hr IVPB Q8 [facility] PRN Reason: Protocol Stop: 08/26/17 14:59 Last Admin: 08/26/17 07:04 Dose: 100 mls/hr Vancomycin HCl (Vancomycin 1gm) 1 gm in 250 mls @ 167 mls/hr IVPB DAILY [facility] PRN Reason: Protocol Last Admin: 08/26/17 12:47 Dose: 167 mls/hr Sodium Chloride (Sodium Chloride 0.9%) 1,000 mls @ 80 mls/hr IV .[id number] [facility] Insulin Human Regular (Humulin R Med) 0 units SC ACHS [facility] PRN Reason: Protocol Last Admin: 08/26/17 12:56 Dose: 1 units Methylprednisolone (Solu-Medrol) 40 mg IV Q12 [facility] Last Admin: 08/26/17 11:26 Dose: 40 mg Montelukast Sodium (Singulair) 10 mg PO HS [facility] Last Admin: 08/25/17 23:46 Dose: 10 mg - Labs Labs: 08/26/17 05:40 08/26/17 05:40 PT 41.2 SECONDS (9.4-12.5) H 08/25/17 17:45 INR 3.52 (0.93-1.08) H* 08/25/17 17:45 APTT 45.3 Seconds (25.1-36.5) H 08/25/17 17:45 - Constitutional Appears: No Acute Distress - Head Exam Head Exam: NORMAL INSPECTION - Eye Exam Eye Exam: Normal appearance - ENT Exam ENT Exam: Mucous Membranes Dry - Neck Exam Neck Exam: Normal Inspection - Respiratory Exam Respiratory Exam: Rales (right). absent: Rhonchi, Wheezes, Respiratory Distress - Cardiovascular Exam Cardiovascular Exam: RRR, +S1, +S2. absent: Gallop, Rubs, Murmur - GI/Abdominal Exam GI & Abdominal Exam: Soft. absent: Distended, Guarding, Tenderness, Rebound - Extremities Exam Additional comments: ulcer present on left lower extremity - Back Exam Back Exam: NORMAL INSPECTION - Neurological Exam Neurological Exam: Alert, Awake, CN II-XII Intact, Oriented x3 - Psychiatric Exam Psychiatric exam: Normal Affect, Normal Mood - Skin Skin Exam: Dry, Intact, Normal Color, Warm Assessment and Plan - Assessment and Plan (Free Text) Assessment: 82 year old female with a PMHx of diabetes - A-fib (On Eliquis), Hypothyroidism , chronic left leg swelling/cellulitis, and COPD. Patient was brought in by [facility] for altered mental status. Admitted for evaluation and treatment of pneumonia. Plan: 1. Pneumonia vs. Pleural Effusion - Last admission in 03/2017, however in the setting of assisted will cover for HCAP - Febrile on admission, no leukocytosis - No Acute Changes on Head CT - CXR(Adm): Multifocal consolidation in the right lung; follow up CXR unchaged - Chest CT shows moderate effusion in right lung and minor effusion in left lung , no acute infiltrate - Procal 0.13 - Follow up Urine Legionella, Mycoplasma, Strep Pneu - Follow up Blood/Urine Cultures - UA negative - Cont Vancomycin/Aztreonam - Chest PT - ID consulted - Pulm consulted 2. Hx of Pulm HTN - Last ECHO in 11/18 which showed Normal EF with Severe Pulm HTN and Severe Tricuspid Regurgitation - Repeat ECHO - BNP 55876 - Strict I/O - Daily Weights - Ruiz Catheter - Pulm consulted 3. ARIEL - Hold Diuretics - Monitor - Nephro consulted 4. Dehydration - Hemoconcentrated - Clinically dehydrated - Holding fluids as CT shows pleural effusion 5. Hyperkalemia - K 5.4 - Kayexelate given - Cont to monitor 6. LLE Ulcer - Wound care consulted - Podiatry consulted 7. Hx of COPD - Home Singuliar - DuoNebs Q6H KEO/Q2H PRN 8. Hx of Hypothyroidism. - TSH WNL (02/18) 9. Hx of DM - Levemir 10 u HS - ISS - Accucheck ACHS GI/DVT PPx - Eliquis - Pepcid Patient seen and discussed in detail with Dr. Chavira. Adalberto Meneses, PGY1 <Slava Chavira - Last Filed: 08/27/17 16:47> Objective - Vital Signs/Intake and Output Vital Signs (last 24 hours): Temp Pulse Resp BP Pulse Ox 98.5 F 88 20 140/74 94 L 08/27/17 12:00 08/27/17 14:00 08/27/17 12:00 08/27/17 12:00 08/27/17 05:20 Intake and Output: 08/27/17 08/27/17 06:59 18:59 Intake Total 600 Output Total 500 Balance 100 - Medications Medications: Current Medications Acetaminophen (Tylenol 325mg Tab) 650 mg PO Q6H PRN PRN Reason: Fever >100.4 F Apixaban (Eliquis) 2.5 mg PO BID [facility] PRN Reason: Protocol Last Admin: 08/27/17 10:32 Dose: 2.5 mg Colchicine (Colocrys) 0.6 mg PO DAILY [facility] Last Admin: 08/27/17 10:32 Dose: 0.6 mg Famotidine (Pepcid) 20 mg PO 2200 [facility] Last Admin: 08/26/17 21:55 Dose: 20 mg Vancomycin HCl (Vancomycin 1gm) 1 gm in 250 mls @ 167 mls/hr IVPB DAILY [facility] PRN Reason: Protocol Last Admin: 08/27/17 10:30 Dose: 167 mls/hr Sodium Chloride (Sodium Chloride 0.9%) 1,000 mls @ 80 mls/hr IV .[id number] [facility] Aztreonam (Azactam 2 Gm) 100 mls @ 100 mls/hr IVPB Q8 [facility] PRN Reason: Protocol Stop: 08/27/17 22:59 Last Admin: 08/27/17 14:25 Dose: 100 mls/hr Insulin Detemir (Levemir) 10 unit SC [facility] Last Admin: 08/26/17 21:52 Dose: Not Given Insulin Human Regular (Humulin R Med) 0 units SC ACHS [facility] PRN Reason: Protocol Last Admin: 08/27/17 12:00 Dose: Not Given Methylprednisolone (Solu-Medrol) 40 mg IVP Q12 [facility] Last Admin: 08/27/17 10:33 Dose: 40 mg Montelukast Sodium (Singulair) 10 mg PO [facility] Last Admin: 08/26/17 21:55 Dose: 10 mg Mupirocin (Bactroban Ointment) 0 gm TOP BID [facility] - Labs Labs: 08/27/17 06:00 08/27/17 06:00 PT 25.6 SECONDS (9.4-12.5) H 08/27/17 06:00 INR 2.19 (0.93-1.08) H 08/27/17 06:00 APTT 45.3 Seconds (25.1-36.5) H 08/25/17 17:45 Attending/Attestation - Attestation I have personally seen and examined this patient.: Yes I have fully participated in the care of the patient.: Yes I have reviewed all pertinent clinical information, including history, physical exam and plan: Yes Notes (Text): I have seen and examined the patient at bedside. Agree with the above note. Labs reviewed.
--- NOTE | 2017-08-26 18:02 | CP.PCM.PN ---
Subjective - Date & Time of Evaluation Date of Evaluation: 08/26/17 Time of Evaluation: 16:00 - Subjective Subjective: Infectious Disease Follow Up: August 26, 2017 82 yo female well known to me sent from [facility] for Altered Mental Status. Patient with known left lower leg gangrene. Patient with increasing coughing over the past 2 weeks. Poor appetite. No reports of fevers or chills. Chest X-ray here is negative. CT scan of chest showing right pleural effusion with subsegmental atelectasis in right lung upper and lower lobe. The patient cannot give a consistent story when spoken to. Right facial droop noted. The patient also appears more cachetic. 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 No known tobacco, EtOH, or illicit drug use. Active Medications Acetaminophen (Tylenol 325mg Tab) 650 mg PO Q6H PRN PRN Reason: Fever >100.4 F Apixaban (Eliquis) 2.5 mg PO BID [facility] PRN Reason: Protocol Last Admin: 08/26/17 11:26 Dose: 2.5 mg Colchicine (Colocrys) 0.6 mg PO DAILY [facility] Last Admin: 08/26/17 11:25 Dose: 0.6 mg Famotidine (Pepcid) 20 mg PO 2200 [facility] Vancomycin HCl (Vancomycin 1gm) 1 gm in 250 mls @ 167 mls/hr IVPB DAILY [facility] PRN Reason: Protocol Last Admin: 08/26/17 12:47 Dose: 167 mls/hr Sodium Chloride (Sodium Chloride 0.9%) 1,000 mls @ 80 mls/hr IV .[id number] [facility] Insulin Detemir (Levemir) 10 unit SC HS [facility] Insulin Human Regular (Humulin R Med) 0 units SC ACHS [facility] PRN Reason: Protocol Last Admin: 08/26/17 12:56 Dose: 1 units Methylprednisolone (Solu-Medrol) 40 mg IV Q12 [facility] Last Admin: 08/26/17 11:26 Dose: 40 mg Montelukast Sodium (Singulair) 10 mg PO HS [facility] Last Admin: 08/25/17 23:46 Dose: 10 mg Family Hx: none given ROS: no fevers, chills, cough, nausea, vomiting, diarrhea, headaches, dizziness, chest pain, abdominal pain, depression, anxiety, melena, hematura, hematemesis, hematochezia. Left leg swelling and lymphedema. Objective - Vital Signs/Intake and Output Vital Signs (last 24 hours): Temp Pulse Resp BP Pulse Ox 97 F L 89 19 131/86 97 08/26/17 12:00 08/26/17 12:00 08/26/17 12:00 08/26/17 12:00 08/26/17 01:37 Intake and Output: 08/26/17 08/26/17 06:59 18:59 Intake Total 0 Balance 0 - Medications Medications: Current Medications Acetaminophen (Tylenol 325mg Tab) 650 mg PO Q6H PRN PRN Reason: Fever >100.4 F Apixaban (Eliquis) 2.5 mg PO BID [facility] PRN Reason: Protocol Last Admin: 08/26/17 11:26 Dose: 2.5 mg Colchicine (Colocrys) 0.6 mg PO DAILY [facility] Last Admin: 08/26/17 11:25 Dose: 0.6 mg Famotidine (Pepcid) 20 mg PO 2200 [facility] Vancomycin HCl (Vancomycin 1gm) 1 gm in 250 mls @ 167 mls/hr IVPB DAILY [facility] PRN Reason: Protocol Last Admin: 08/26/17 12:47 Dose: 167 mls/hr Sodium Chloride (Sodium Chloride 0.9%) 1,000 mls @ 80 mls/hr IV .[id number] [facility] Insulin Detemir (Levemir) 10 unit SC [facility] Insulin Human Regular (Humulin R Med) 0 units SC ACHS [facility] PRN Reason: Protocol Last Admin: 08/26/17 12:56 Dose: 1 units Methylprednisolone (Solu-Medrol) 40 mg IV Q12 [facility] Last Admin: 08/26/17 11:26 Dose: 40 mg Montelukast Sodium (Singulair) 10 mg PO [facility] Last Admin: 08/25/17 23:46 Dose: 10 mg - Labs Labs: 08/26/17 05:40 08/26/17 05:40 PT 41.2 SECONDS (9.4-12.5) H 08/25/17 17:45 INR 3.52 (0.93-1.08) H* 08/25/17 17:45 APTT 45.3 Seconds (25.1-36.5) H 08/25/17 17:45 - Constitutional Appears: Cachectic, Chronically Ill - Head Exam Head Exam: ATRAUMATIC, NORMOCEPHALIC Additional comments: right facial droop. - Eye Exam Eye Exam: EOMI, PERRL Pupil Exam: NORMAL ACCOMODATION, PERRL - ENT Exam ENT Exam: Mucous Membranes Moist, Normal External Ear Exam, TM's Normal Bilaterally - Neck Exam Neck Exam: Full ROM, Normal Inspection - Respiratory Exam Respiratory Exam: Decreased Breath Sounds Additional comments: severely decreased in right upper and lower lobes. - Cardiovascular Exam Cardiovascular Exam: REGULAR RHYTHM, RRR, +S1, +S2 - GI/Abdominal Exam GI & Abdominal Exam: Soft, Normal Bowel Sounds. absent: Distended, Tenderness - Extremities Exam Extremities Exam: Full ROM, Normal Inspection - Neurological Exam Neurological Exam: Alert, Awake, CN II-XII Intact Additional comments: Patient has some confusion. - Psychiatric Exam Psychiatric exam: Normal Affect, Normal Mood - Skin Additional comments: left leg with dark discoloration and heavy growth of tinea. Recommendations on previous hospitalizations were for amputation of the left leg. Assessment and Plan - Assessment and Plan (Free Text) Assessment: 82 yo female with multiple medical issues presenting from [facility] for AMS. The patient appears more cachetic to me and appears to have a new right facial droop when seen. The patient still has the issues with the left leg. Amputation of the left leg remains the recommendation for care. In the past, she was able to tolerate meropenem after a desensitization protocol was followed. On Aztreonam and Vancomcyin now. Add Azithromycin to the patient's regimen. Check blood and urine culture. Supportive care. Thank you for allowing me to participate in the care of the patient, we will follow with you.
--- NOTE | 2017-08-26 18:03 | CP.PCM.CON ---
History of Present Illness - History of Present Illness History of Present Illness: See Progress Note on the patient for the full consult. Past Patient History - Infectious Disease Hx of Infectious Diseases: None - Tetanus Immunizations Tetanus Immunization: Unknown - Past Medical History & Family History Past Medical History?: Yes - Past Social History Smoking Status: Never Smoked - CARDIAC Hx Hypertension: Yes Hx Pacemaker: No Other/Comment: L chest ICD - PULMONARY Hx Chronic Obstructive Pulmonary Disease (COPD): Yes - NEUROLOGICAL Hx Paralysis: No - HEENT Hx HEENT Problems: Yes Hx Cataracts: Yes (BILATERAL SURGERY) - RENAL Hx Chronic Kidney Disease: Yes Hx Neurogenic Bladder: Yes - ENDOCRINE/METABOLIC Hx Diabetes Mellitus Type 2: Yes - HEMATOLOGICAL/ONCOLOGICAL Hx Anemia: Yes Hx Blood Transfusions: No Hx Blood Transfusion Reaction: No - INTEGUMENTARY Hx Dermatological Problems: Yes (CELLULITIS,LEFT VENOUS STASIS ULCER) Other/Comment: cellulitis left ankle wound, left foot red and +2 edema, foul smelling dng noted to left ankle wound - MUSCULOSKELETAL/RHEUMATOLOGICAL Hx Musculoskeletal Disorders: Yes - GASTROINTESTINAL Hx Gastrointestinal Disorders: Yes Hx Gastroesophageal Reflux: Yes Other/Comment: diaphragmatic hernia - GENITOURINARY/GYNECOLOGICAL Hx Reproductive Disorders: No - PSYCHIATRIC Hx Depression: Yes Hx Emotional Abuse: No Hx Physical Abuse: No Hx Substance Use: No - SURGICAL HISTORY Other/Comment: L chest ICD. L upper arm PICC - ANESTHESIA Hx Anesthesia: Yes Hx Anesthesia Reactions: No Hx Malignant Hyperthermia: No Meds Allergies/Adverse Reactions: Allergies Allergy/AdvReac Type Severity Reaction Status Date / Time banana Allergy RASH Verified 02/08/17 14:47 Influenza Virus Vaccines Allergy RASH Verified 02/08/17 14:47 kiwi Allergy RASH Verified 02/08/17 14:47 Penicillins Allergy RASH Verified 02/08/17 14:47 pneumococcal vaccine Allergy RASH Verified 02/08/17 14:47 strawberry Allergy RASH Verified 02/08/17 14:47 Sulfa (Sulfonamide Allergy RASH Verified 02/08/17 14:47 Antibiotics) tomato Allergy RASH Verified 02/08/17 14:47 - Medications Medications: Current Medications Acetaminophen (Tylenol 325mg Tab) 650 mg PO Q6H PRN PRN Reason: Fever >100.4 F Apixaban (Eliquis) 2.5 mg PO BID [facility] PRN Reason: Protocol Last Admin: 08/26/17 17:52 Dose: 2.5 mg Colchicine (Colocrys) 0.6 mg PO DAILY [facility] Last Admin: 08/26/17 11:25 Dose: 0.6 mg Famotidine (Pepcid) 20 mg PO 2200 [facility] Vancomycin HCl (Vancomycin 1gm) 1 gm in 250 mls @ 167 mls/hr IVPB DAILY [facility] PRN Reason: Protocol Last Admin: 08/26/17 12:47 Dose: 167 mls/hr Sodium Chloride (Sodium Chloride 0.9%) 1,000 mls @ 80 mls/hr IV .[id number] [facility] Insulin Detemir (Levemir) 10 unit SC HS [facility] Insulin Human Regular (Humulin R Med) 0 units SC ACHS [facility] PRN Reason: Protocol Last Admin: 08/26/17 17:30 Dose: 1 units Methylprednisolone (Solu-Medrol) 40 mg IV Q12 [facility] Last Admin: 08/26/17 11:26 Dose: 40 mg Montelukast Sodium (Singulair) 10 mg PO [facility] Last Admin: 08/25/17 23:46 Dose: 10 mg Results - Vital Signs Recent Vital Signs: Last Vital Signs Temp 97.5 F L 08/26/17 17:52 Pulse 90 08/26/17 17:52 Resp 19 08/26/17 17:52 BP 128/83 08/26/17 17:52 Pulse Ox 97 08/26/17 01:37 - Labs Result Diagrams: 08/26/17 05:40 08/26/17 05:40 Labs: Laboratory Results - last 24 hr 08/25/17 08/26/17 08/26/17 22:18 00:29 05:40 WBC 5.2 D RBC 4.73 Hgb 12.5 Hct 42.7 MCV 90.3 MCH 26.4 MCHC 29.3 L RDW 21.6 H Plt Count 191 MPV 12.7 H Gran % 90.9 H Lymph % (Auto) 8.1 L Granite % (Auto) 1.0 Eos % (Auto) 0.0 L Baso % (Auto) 0.0 Gran # 4.70 Lymph # (Auto) 0.4 L Granite # (Auto) 0.1 Eos # (Auto) 0.0 Baso # (Auto) 0.00 Neutrophils % (Manual) 89 H Lymphocytes % (Manual) 8 L Monocytes % (Manual) 3 Large Platelets Present Sodium Potassium Chloride Carbon Dioxide Anion Gap BUN Creatinine Est GFR ( Amer) Est GFR (Non-Af Amer) POC Glucose (mg/dL) Random Glucose Calcium Total Bilirubin AST ALT Alkaline Phosphatase NT-Pro-B Natriuret Pep Total Protein Albumin Globulin Albumin/Globulin Ratio Procalcitonin 0.13 L Urine Color Yellow Urine Appearance Clear Urine pH 5.5 Ur Specific [place] >= 1.030 Urine Protein 30 H Urine Glucose (UA) Negative Urine Ketones Trace H Urine Blood Negative Urine Nitrate Negative Urine Bilirubin Negative Urine Urobilinogen 0.2 Ur Leukocyte Esterase Negative Urine RBC 0 - 2 Urine WBC 0 - 2 Ur Epithelial Cells 0 - 2 Hyaline Casts 0 - 2 08/26/17 08/26/17 08/26/17 05:40 05:40 07:46 WBC RBC Hgb Hct MCV MCH MCHC RDW Plt Count MPV Gran % Lymph % (Auto) Granite % (Auto) Eos % (Auto) Baso % (Auto) Gran # Lymph # (Auto) Granite # (Auto) Eos # (Auto) Baso # (Auto) Neutrophils % (Manual) Lymphocytes % (Manual) Monocytes % (Manual) Large Platelets Sodium 146 Potassium 5.4 H Chloride 111 H Carbon Dioxide 22 Anion Gap 19 BUN 41 H Creatinine 1.8 H Est GFR ( Amer) 32 Est GFR (Non-Af Amer) 27 POC Glucose (mg/dL) 183 H Random Glucose 193 H Calcium 8.2 L Total Bilirubin 1.1 AST 28 ALT 21 Alkaline Phosphatase 111 NT-Pro-B Natriuret Pep 29035 H Total Protein 7.2 Albumin 3.1 Globulin 4.0 Albumin/Globulin Ratio 0.8 L Procalcitonin Urine Color Urine Appearance Urine pH Ur Specific [place] Urine Protein Urine Glucose (UA) Urine Ketones Urine Blood Urine Nitrate Urine Bilirubin Urine Urobilinogen Ur Leukocyte Esterase Urine RBC Urine WBC Ur Epithelial Cells Hyaline Casts 08/26/17 08/26/17 12:43 17:04 WBC RBC Hgb Hct MCV MCH MCHC RDW Plt Count MPV Gran % Lymph % (Auto) Granite % (Auto) Eos % (Auto) Baso % (Auto) Gran # Lymph # (Auto) Granite # (Auto) Eos # (Auto) Baso # (Auto) Neutrophils % (Manual) Lymphocytes % (Manual) Monocytes % (Manual) Large Platelets Sodium Potassium Chloride Carbon Dioxide Anion Gap BUN Creatinine Est GFR ( Amer) Est GFR (Non-Af Amer) POC Glucose (mg/dL) 166 H 173 H Random Glucose Calcium Total Bilirubin AST ALT Alkaline Phosphatase NT-Pro-B Natriuret Pep Total Protein Albumin Globulin Albumin/Globulin Ratio Procalcitonin Urine Color Urine Appearance Urine pH Ur Specific [place] Urine Protein Urine Glucose (UA) Urine Ketones Urine Blood Urine Nitrate Urine Bilirubin Urine Urobilinogen Ur Leukocyte Esterase Urine RBC Urine WBC Ur Epithelial Cells Hyaline Casts
[2017-08-26] MEDS: Insulin Detemir 100 units/ml Vial (Levemir) SC SCH (21:52)
[2017-08-27 06:23] LABS: GRAN # 5.49 (1.4-6.5); GRAN % 90.7 % (50.0-68.0); HEMOGLOBIN 11.9 g/dL (12.0-16.0); LYMPH # 0.4 (1.2-3.4); MEAN CELL VOLUME 89.8 fl (80.0-105.0); MEAN CORPUSCULAR HEMOGLOBIN 26.5 pg (25.0-35.0); MEAN CORPUSCULAR HGB CONC 29.5 g/dl (31.0-37.0); MONO # 0.2 (0.1-0.6); MONO % 3.3 % (1.0-6.0); RBC 4.49 10^6/uL (3.5-6.1); RED CELL DISTRIBUTION WIDTH 21.5 % (11.5-14.5); WHITE BLOOD COUNT 6.1 10^3/ul (4.5-11.0)
[2017-08-27 06:33] LABS: ALB/GLOB RATIO 0.8 (1.1-1.8); CALCIUM 8.4 mg/dL (8.4-10.5)
[2017-08-27 06:42] LABS: INR 2.19 (0.93-1.08); PROTHROMBIN TIME 25.6 SECONDS (9.4-12.5)
[2017-08-27] MEDS: Insulin Reg-MEDIUM-Coverage SC SCH ×4 (07:45→22:56)
[2017-08-27 08:47] LABS: PLATELET COUNT 173 10^3/uL (120.0-450.0)
[2017-08-27] MEDS ORDERED: MethylPREDNISolone 40 mg Vial IVP SCH (10:20)
[2017-08-27] MEDS: Vancomycin 1gm in NS 250ml 1 GM/250 ML BAG IVPB SCH (10:30)
[2017-08-27] MEDS: MethylPREDNISolone 40 mg Vial IV SCH (10:30)
[2017-08-27] MEDS: MethylPREDNISolone 40 mg Vial IVP SCH ×2 (10:33→22:54)
--- NOTE | 2017-08-27 10:45 | CP.PCM.PN ---
<Nikhil Meneses - Last Filed: 08/27/17 10:40> Subjective - Date & Time of Evaluation Date of Evaluation: 08/27/17 Time of Evaluation: 10:41 - Subjective Subjective: Medicine Progress Note Pt was seen and examined at bedside. No acute overnight events. Pt states that her shortness of breath has improved, however she still complains of productive cough with grayish-brown sputum. Pt denies CP, n/v/d, abdominal pain, fever, chills, JAY, or dizziness. Objective - Vital Signs/Intake and Output Vital Signs (last 24 hours): Temp Pulse Resp BP Pulse Ox 97.9 F 96 H 20 137/88 94 L 08/27/17 05:20 08/27/17 05:20 08/27/17 05:20 08/27/17 05:20 08/27/17 05:20 - Medications Medications: Current Medications Acetaminophen (Tylenol 325mg Tab) 650 mg PO Q6H PRN PRN Reason: Fever >100.4 F Apixaban (Eliquis) 2.5 mg PO BID [facility] PRN Reason: Protocol Last Admin: 08/26/17 17:52 Dose: 2.5 mg Colchicine (Colocrys) 0.6 mg PO DAILY [facility] Last Admin: 08/26/17 11:25 Dose: 0.6 mg Famotidine (Pepcid) 20 mg PO 2200 [facility] Last Admin: 08/26/17 21:55 Dose: 20 mg Vancomycin HCl (Vancomycin 1gm) 1 gm in 250 mls @ 167 mls/hr IVPB DAILY [facility] PRN Reason: Protocol Last Admin: 08/26/17 12:47 Dose: 167 mls/hr Sodium Chloride (Sodium Chloride 0.9%) 1,000 mls @ 80 mls/hr IV .[id number] [facility] Insulin Detemir (Levemir) 10 unit SC HS [facility] Last Admin: 08/26/17 21:52 Dose: Not Given Insulin Human Regular (Humulin R Med) 0 units SC ACHS [facility] PRN Reason: Protocol Last Admin: 08/27/17 07:45 Dose: Not Given Methylprednisolone (Solu-Medrol) 40 mg IVP Q12 [facility] Montelukast Sodium (Singulair) 10 mg PO HS [facility] Last Admin: 08/26/17 21:55 Dose: 10 mg Mupirocin (Bactroban Ointment) 0 gm TOP BID [facility] - Labs Labs: 08/27/17 06:00 08/27/17 06:00 PT 25.6 SECONDS (9.4-12.5) H 08/27/17 06:00 INR 2.19 (0.93-1.08) H 08/27/17 06:00 APTT 45.3 Seconds (25.1-36.5) H 08/25/17 17:45 - Constitutional Appears: No Acute Distress - Head Exam Head Exam: NORMAL INSPECTION - Eye Exam Eye Exam: Normal appearance - ENT Exam ENT Exam: Mucous Membranes Moist - Neck Exam Neck Exam: Normal Inspection - Respiratory Exam Respiratory Exam: Rales (right sided). absent: Chest Wall Tenderness, Decreased Breath Sounds, Clear to Ausculation Bilateral, Rhonchi, Wheezes, Respiratory Distress - Cardiovascular Exam Cardiovascular Exam: RRR, +S1, +S2. absent: Gallop, Rubs, Murmur - GI/Abdominal Exam GI & Abdominal Exam: Soft. absent: Distended, Guarding, Tenderness, Rebound - Extremities Exam Extremities Exam: Normal Inspection - Back Exam Back Exam: NORMAL INSPECTION - Neurological Exam Neurological Exam: Alert, Awake, Oriented x3 Additional comments: left sided facial droop noted - Psychiatric Exam Psychiatric exam: Normal Affect, Normal Mood - Skin Skin Exam: Dry, Intact, Normal Color, Warm Assessment and Plan - Assessment and Plan (Free Text) Assessment: 82 year old female with a PMHx of diabetes - A-fib (On Eliquis), Hypothyroidism , chronic left leg swelling/cellulitis, and COPD. Patient was brought in by [facility] for altered mental status. Admitted for evaluation and treatment of pneumonia. Plan: 1. Pneumonia vs. Pleural Effusion - Last admission in 03/2017, however in the setting of halfway will cover for HCAP - Febrile on admission, no leukocytosis - No Acute Changes on Head CT - CXR(Adm): Multifocal consolidation in the right lung; follow up CXR unchaged - Chest CT shows moderate effusion in right lung and minor effusion in left lung , no acute infiltrate - Procal 0.13 - Follow up Urine Legionella, Mycoplasma, Strep Pneu - Blood/Urine Cultures negative after 24 hrs - UA negative - Cont Vancomycin, Aztreonam, Azithromycin - Chest PT - ID consulted - Pulm consulted 2. Hx of Pulm HTN - Last ECHO in 11/18 which showed Normal EF with Severe Pulm HTN and Severe Tricuspid Regurgitation - Repeat ECHO - BNP 61927 - Strict I/O - Daily Weights - Ruiz Catheter - Pulm consulted 3. ARIEL - Creatinine improving - Nephro consulted 4. Dehydration - Hemoconcentrated, improved - Clinically dehydrated, improved - Holding fluids as CT shows pleural effusion 5. Hyperkalemia, resolved - K 4.9 - Kayexelate given once - Cont to monitor 6. Facial Droop - Head CT on admission showed no acute changes - Head CT ordered today due to facial droop 7. LLE Ulcer - F/u wound cultures - Wound care consulted - Podiatry consulted 8. Hx of COPD - Home Singuliar - DuoNebs Q6H [facility]/Q2H PRN 9. Hx of Hypothyroidism. - TSH WNL (02/18) 10. Hx of DM - Levemir 10 u HS - ISS - Accucheck ACHS GI/DVT PPx - Eliquis - Pepcid Dispo: Palliative care consulted for possible hospice in halfway. Patient seen and discussed in detail with Dr. Chavira. Adalberto Meneses, PGY1 <Slava Chavira B - Last Filed: 08/28/17 18:39> Objective - Vital Signs/Intake and Output Vital Signs (last 24 hours): Temp Pulse Resp BP Pulse Ox 98.5 F 88 20 140/74 94 L 08/27/17 12:00 08/27/17 14:00 08/27/17 12:00 08/27/17 12:00 08/27/17 05:20 Intake and Output: 08/27/17 08/27/17 06:59 18:59 Intake Total 600 Output Total 500 Balance 100 - Medications Medications: Current Medications Acetaminophen (Tylenol 325mg Tab) 650 mg PO Q6H PRN PRN Reason: Fever >100.4 F Apixaban (Eliquis) 2.5 mg PO BID [facility] PRN Reason: Protocol Last Admin: 08/27/17 10:32 Dose: 2.5 mg Colchicine (Colocrys) 0.6 mg PO DAILY [facility] Last Admin: 08/27/17 10:32 Dose: 0.6 mg Famotidine (Pepcid) 20 mg PO 2200 [facility] Last Admin: 08/26/17 21:55 Dose: 20 mg Vancomycin HCl (Vancomycin 1gm) 1 gm in 250 mls @ 167 mls/hr IVPB DAILY [facility] PRN Reason: Protocol Last Admin: 08/27/17 10:30 Dose: 167 mls/hr Sodium Chloride (Sodium Chloride 0.9%) 1,000 mls @ 80 mls/hr IV .[id number] [facility] Aztreonam (Azactam 2 Gm) 100 mls @ 100 mls/hr IVPB Q8 [facility] PRN Reason: Protocol Stop: 08/27/17 22:59 Last Admin: 08/27/17 14:25 Dose: 100 mls/hr Insulin Detemir (Levemir) 10 unit SC HS [facility] Last Admin: 08/26/17 21:52 Dose: Not Given Insulin Human Regular (Humulin R Med) 0 units SC ACHS [facility] PRN Reason: Protocol Last Admin: 08/27/17 12:00 Dose: Not Given Methylprednisolone (Solu-Medrol) 40 mg IVP Q12 [facility] Last Admin: 08/27/17 10:33 Dose: 40 mg Montelukast Sodium (Singulair) 10 mg PO HS [facility] Last Admin: 08/26/17 21:55 Dose: 10 mg Mupirocin (Bactroban Ointment) 0 gm TOP BID [facility] - Labs Labs: 08/27/17 06:00 08/27/17 06:00 PT 25.6 SECONDS (9.4-12.5) H 08/27/17 06:00 INR 2.19 (0.93-1.08) H 08/27/17 06:00 APTT 45.3 Seconds (25.1-36.5) H 08/25/17 17:45 Attending/Attestation - Attestation I have personally seen and examined this patient.: Yes I have fully participated in the care of the patient.: Yes I have reviewed all pertinent clinical information, including history, physical exam and plan: Yes Notes (Text): I have seen and examined the patient at bedside. Agree with the above note. Labs reviewed. Discussed with consultants.
--- NOTE | 2017-08-27 10:49 | CT ---
PROCEDURE: CT HEAD WITHOUT CONTRAST. HISTORY: R/O CVA-h/o AMS COMPARISON: 08/25/2017 TECHNIQUE: Axial computed tomography images were obtained through the head/brain without intravenous contrast. Radiation dose: Total exam DLP = mGy-cm. This CT exam was performed using one or more of the following dose reduction techniques: Automated exposure control, adjustment of the mA and/or kV according to patient size, and/or use of iterative reconstruction technique. FINDINGS: HEMORRHAGE: No intracranial hemorrhage. BRAIN: No mass effect or edema. Mild atrophy and chronic periventricular white matter ischemic disease. VENTRICLES: Unremarkable. No hydrocephalus. CALVARIUM: Unremarkable. PARANASAL SINUSES: Unremarkable as visualized. No significant inflammatory changes. MASTOID AIR CELLS: Unremarkable as visualized. No inflammatory changes. OTHER FINDINGS: None. IMPRESSION: No acute hemorrhage.
--- NOTE | 2017-08-27 13:33 | CP.PCM.CON ---
History of Present Illness - History of Present Illness History of Present Illness: Palliative consult requested by DR Akash Chavira Reason Goals of care/advance care planning 82 year old resident of [facility] with history of DM, A Fib, COPD and chronic LLE cellulitis who was sent to ED due to altered mental status> The pait states she has had cough, intermittently productive for a couple of weeks.She denied fever, chills,headache, dysuria,chest/abdominal pain, nausea, vomiting or diarrhea. Head CT X2, both negative. Chest xray multifocal consolidation in the right lung. Labs, CBC-WNL, BUN 48, Creat 1.5, glucose 166, urine negative. ECHO report pending PMHx: A Fib on Eliquis, hypothyroidism, DM, HTN COPD, chronic LLE celliltis PSH: pacemaker Social History: Non smoker, no alcohol or drug use. Resident of [facility], wheelchair dependent Family History: DM Advance Care Planning: The patient has an Advanced Directive on chart which she has rescinded . She is full code status Review of Systems: As per HPI, otherwise negative 12 point review. Past Patient History - Infectious Disease Hx of Infectious Diseases: None - Tetanus Immunizations Tetanus Immunization: Unknown - Past Medical History & Family History Past Medical History?: Yes - Past Social History Smoking Status: Never Smoked - CARDIAC Hx Hypertension: Yes Hx Pacemaker: No Other/Comment: L chest ICD - PULMONARY Hx Chronic Obstructive Pulmonary Disease (COPD): Yes - NEUROLOGICAL Hx Paralysis: No - HEENT Hx HEENT Problems: Yes Hx Cataracts: Yes (BILATERAL SURGERY) - RENAL Hx Chronic Kidney Disease: Yes Hx Neurogenic Bladder: Yes - ENDOCRINE/METABOLIC Hx Diabetes Mellitus Type 2: Yes - HEMATOLOGICAL/ONCOLOGICAL Hx Anemia: Yes Hx Blood Transfusions: No Hx Blood Transfusion Reaction: No - INTEGUMENTARY Hx Dermatological Problems: Yes (CELLULITIS,LEFT VENOUS STASIS ULCER) Other/Comment: cellulitis left ankle wound, left foot red and +2 edema, foul smelling dng noted to left ankle wound - MUSCULOSKELETAL/RHEUMATOLOGICAL Hx Musculoskeletal Disorders: Yes - GASTROINTESTINAL Hx Gastrointestinal Disorders: Yes Hx Gastroesophageal Reflux: Yes Other/Comment: diaphragmatic hernia - GENITOURINARY/GYNECOLOGICAL Hx Reproductive Disorders: No - PSYCHIATRIC Hx Depression: Yes Hx Emotional Abuse: No Hx Physical Abuse: No Hx Substance Use: No - SURGICAL HISTORY Other/Comment: L chest ICD. L upper arm PICC - ANESTHESIA Hx Anesthesia: Yes Hx Anesthesia Reactions: No Hx Malignant Hyperthermia: No Meds Allergies/Adverse Reactions: Allergies Allergy/AdvReac Type Severity Reaction Status Date / Time banana Allergy RASH Verified 02/08/17 14:47 Influenza Virus Vaccines Allergy RASH Verified 02/08/17 14:47 kiwi Allergy RASH Verified 02/08/17 14:47 Penicillins Allergy RASH Verified 02/08/17 14:47 pneumococcal vaccine Allergy RASH Verified 02/08/17 14:47 strawberry Allergy RASH Verified 02/08/17 14:47 Sulfa (Sulfonamide Allergy RASH Verified 02/08/17 14:47 Antibiotics) tomato Allergy RASH Verified 02/08/17 14:47 - Medications Medications: Current Medications Acetaminophen (Tylenol 325mg Tab) 650 mg PO Q6H PRN PRN Reason: Fever >100.4 F Apixaban (Eliquis) 2.5 mg PO BID [facility] PRN Reason: Protocol Last Admin: 08/27/17 10:32 Dose: 2.5 mg Colchicine (Colocrys) 0.6 mg PO DAILY [facility] Last Admin: 08/27/17 10:32 Dose: 0.6 mg Famotidine (Pepcid) 20 mg PO 2200 [facility] Last Admin: 08/26/17 21:55 Dose: 20 mg Vancomycin HCl (Vancomycin 1gm) 1 gm in 250 mls @ 167 mls/hr IVPB DAILY [facility] PRN Reason: Protocol Last Admin: 08/27/17 10:30 Dose: 167 mls/hr Sodium Chloride (Sodium Chloride 0.9%) 1,000 mls @ 80 mls/hr IV .[id number] [facility] Aztreonam (Azactam 2 Gm) 100 mls @ 100 mls/hr IVPB Q8 [facility] PRN Reason: Protocol Stop: 08/27/17 22:59 Insulin Detemir (Levemir) 10 unit SC HS [facility] Last Admin: 08/26/17 21:52 Dose: Not Given Insulin Human Regular (Humulin R Med) 0 units SC ACHS [facility] PRN Reason: Protocol Last Admin: 08/27/17 12:00 Dose: Not Given Methylprednisolone (Solu-Medrol) 40 mg IVP Q12 [facility] Last Admin: 08/27/17 10:33 Dose: 40 mg Montelukast Sodium (Singulair) 10 mg PO HS [facility] Last Admin: 08/26/17 21:55 Dose: 10 mg Mupirocin (Bactroban Ointment) 0 gm TOP BID [facility] Physical Exam - Constitutional Appears: Chronically Ill - Head Exam Additional comments: right facial droop - Eye Exam Eye Exam: Normal appearance, PERRL - ENT Exam ENT Exam: Mucous Membranes Moist - Neck Exam Neck exam: Positive for: Normal Inspection - Respiratory Exam Respiratory Exam: Decreased Breath Sounds, NORMAL BREATHING PATTERN - Cardiovascular Exam Cardiovascular Exam: REGULAR RHYTHM, +S1, +S2 - GI/Abdominal Exam GI & Abdominal Exam: Normal Bowel Sounds, Soft - Back Exam Back exam: NORMAL INSPECTION - Neurological Exam Neurological exam: Alert - Skin Skin Exam: Dry, Pallor Results - Vital Signs Recent Vital Signs: Last Vital Signs Temp 98.5 F 08/27/17 12:00 Pulse 88 08/27/17 12:00 Resp 20 08/27/17 12:00 BP 140/74 08/27/17 12:00 Pulse Ox 94 L 08/27/17 05:20 - Labs Result Diagrams: 08/27/17 06:00 08/27/17 06:00 Labs: Laboratory Results - last 24 hr 08/26/17 08/26/17 08/26/17 05:40 17:04 21:23 WBC RBC Hgb Hct MCV MCH MCHC RDW Plt Count Gran % Lymph % (Auto) [place] % (Auto) Eos % (Auto) Baso % (Auto) Gran # Lymph # (Auto) [place] # (Auto) Eos # (Auto) Baso # (Auto) PT INR Sodium Potassium Chloride Carbon Dioxide Anion Gap BUN Creatinine Est GFR ( Amer) Est GFR (Non-Af Amer) POC Glucose (mg/dL) 173 H 139 H Random Glucose Calcium Total Bilirubin AST ALT Alkaline Phosphatase NT-Pro-B Natriuret Pep 87399 H Total Protein Albumin Globulin Albumin/Globulin Ratio 08/27/17 08/27/17 08/27/17 06:00 06:00 06:00 WBC 6.1 RBC 4.49 Hgb 11.9 L Hct 40.3 MCV 89.8 MCH 26.5 MCHC 29.5 L RDW 21.5 H Plt Count 173 Gran % 90.7 H Lymph % (Auto) 6.0 L [place] % (Auto) 3.3 Eos % (Auto) 0.0 L Baso % (Auto) 0.0 Gran # 5.49 Lymph # (Auto) 0.4 L [place] # (Auto) 0.2 Eos # (Auto) 0.0 Baso # (Auto) 0.00 PT 25.6 H INR 2.19 H Sodium 146 Potassium 4.9 Chloride 111 H Carbon Dioxide 24 Anion Gap 16 BUN 48 H Creatinine 1.5 H Est GFR ( Amer) 40 Est GFR (Non-Af Amer) 33 POC Glucose (mg/dL) Random Glucose 139 H Calcium 8.4 Total Bilirubin 0.9 AST 25 ALT 20 Alkaline Phosphatase 98 NT-Pro-B Natriuret Pep Total Protein 6.9 Albumin 3.0 Globulin 3.9 Albumin/Globulin Ratio 0.8 L 08/27/17 08/27/17 07:19 11:27 WBC RBC Hgb Hct MCV MCH MCHC RDW Plt Count Gran % Lymph % (Auto) [place] % (Auto) Eos % (Auto) Baso % (Auto) Gran # Lymph # (Auto) Bradley # (Auto) Eos # (Auto) Baso # (Auto) PT INR Sodium Potassium Chloride Carbon Dioxide Anion Gap BUN Creatinine Est GFR ( Amer) Est GFR (Non-Af Amer) POC Glucose (mg/dL) 125 H 134 H Random Glucose Calcium Total Bilirubin AST ALT Alkaline Phosphatase NT-Pro-B Natriuret Pep Total Protein Albumin Globulin Albumin/Globulin Ratio Assessment & Plan - Assessment and Plan (Free Text) Assessment: 82 year old female with history of COPD, A Fib s/p pacemaker, HTN, chronic LLE cellulitis, who is admitted with right pleural effusion and submental atelectasis in right upper and lower lobes. The patient is alert and oriented to place and self. She understands that she has pneumonia and states she wants to be treated. The patient states that she doesn't understand why the snf couldn't take care of her problem as she doesn't like to come to the hospital. After more discussion the patient clarified that although she prefers not to be hospitalized, she does want her medical problems treated. Hospice services explained. She nina states that she does not want hospice care and wants full aggressive medical treatment including CPR/ intubation. She confirms that her daughter Bela will make all other medical decisions if necessary. The patient repeated this same sentiment in the presence of her RN, Tanisha Estrada. Time spent with patient in goals of care and advance care planning discussion, 20 minutes Plan: Pulmonary: Continue Vancomycin, Aztreonam, azithromycin.Ibrahim cultures. Follow ID recommendations Altered Mental status: Resolved,CT scan of head negative X2, monitor for acute changes. Cardiology: Awaiting echo results. Telemetry monitoring. Goals of care and advance care planning. Full code status. Dr Chavira notified.
[2017-08-27] MEDS: Aztreonam 2 Gm in NS 100mL 100 ML IVPB SCH ×2 (14:25→22:54)
--- NOTE | 2017-08-27 16:34 | CP.PCM.CON ---
History of Present Illness - History of Present Illness History of Present Illness: Pulmonary Consult Note HPI Patient is 82yo female with PMhx of DM, Afib on Eliquis, Hypothyroid, Chronic Cellulits, COPD, presented from [facility] for cough. Pt reports for the past 2 weeks she has had cough, productive of brown sputum, without fever, chills, chest pain, sob, palpitations, JAY, dizziness. No other constitutional symptoms. Pt denies current smoking, etoh abuse, illicit drug use. Not on any inhalers at home. ROS: As above PMHx: A-fib (On Eliquis), Hypothyroidism, chronic left leg swelling/cellulitis, and COPD, Pacemaker, PSHx: Pacemaker Allergies: Sulfa, Penicillins, Pneumococcal Vaccine, Banana, Influenza Vaccine, tomato, Kiwi SocialHx: Denies tobacco, alcohol, and illicit drug use. Lives at [facility] Hos: 03/2017 for Pneumonia FamHx: NC Meds: as per EMR Review of Systems - Constitutional Additional comments: as per HPI Past Patient History - Infectious Disease Hx of Infectious Diseases: None - Tetanus Immunizations Tetanus Immunization: Unknown - Past Medical History & Family History Past Medical History?: Yes - Past Social History Smoking Status: Never Smoked - CARDIAC Hx Hypertension: Yes Hx Pacemaker: No Other/Comment: L chest ICD - PULMONARY Hx Chronic Obstructive Pulmonary Disease (COPD): Yes - NEUROLOGICAL Hx Paralysis: No - HEENT Hx HEENT Problems: Yes Hx Cataracts: Yes (BILATERAL SURGERY) - RENAL Hx Chronic Kidney Disease: Yes Hx Neurogenic Bladder: Yes - ENDOCRINE/METABOLIC Hx Diabetes Mellitus Type 2: Yes - HEMATOLOGICAL/ONCOLOGICAL Hx Anemia: Yes Hx Blood Transfusions: No Hx Blood Transfusion Reaction: No - INTEGUMENTARY Hx Dermatological Problems: Yes (CELLULITIS,LEFT VENOUS STASIS ULCER) Other/Comment: cellulitis left ankle wound, left foot red and +2 edema, foul smelling dng noted to left ankle wound - MUSCULOSKELETAL/RHEUMATOLOGICAL Hx Musculoskeletal Disorders: Yes - GASTROINTESTINAL Hx Gastrointestinal Disorders: Yes Hx Gastroesophageal Reflux: Yes Other/Comment: diaphragmatic hernia - GENITOURINARY/GYNECOLOGICAL Hx Reproductive Disorders: No - PSYCHIATRIC Hx Depression: Yes Hx Emotional Abuse: No Hx Physical Abuse: No Hx Substance Use: No - SURGICAL HISTORY Other/Comment: L chest ICD. L upper arm PICC - ANESTHESIA Hx Anesthesia: Yes Hx Anesthesia Reactions: No Hx Malignant Hyperthermia: No Meds Allergies/Adverse Reactions: Allergies Allergy/AdvReac Type Severity Reaction Status Date / Time banana Allergy RASH Verified 02/08/17 14:47 Influenza Virus Vaccines Allergy RASH Verified 02/08/17 14:47 kiwi Allergy RASH Verified 02/08/17 14:47 Penicillins Allergy RASH Verified 02/08/17 14:47 pneumococcal vaccine Allergy RASH Verified 02/08/17 14:47 strawberry Allergy RASH Verified 02/08/17 14:47 Sulfa (Sulfonamide Allergy RASH Verified 02/08/17 14:47 Antibiotics) tomato Allergy RASH Verified 02/08/17 14:47 - Medications Medications: Current Medications Acetaminophen (Tylenol 325mg Tab) 650 mg PO Q6H PRN PRN Reason: Fever >100.4 F Apixaban (Eliquis) 2.5 mg PO BID [facility] PRN Reason: Protocol Last Admin: 08/27/17 10:32 Dose: 2.5 mg Colchicine (Colocrys) 0.6 mg PO DAILY [facility] Last Admin: 08/27/17 10:32 Dose: 0.6 mg Famotidine (Pepcid) 20 mg PO 2200 [facility] Last Admin: 08/26/17 21:55 Dose: 20 mg Vancomycin HCl (Vancomycin 1gm) 1 gm in 250 mls @ 167 mls/hr IVPB DAILY [facility] PRN Reason: Protocol Last Admin: 08/27/17 10:30 Dose: 167 mls/hr Sodium Chloride (Sodium Chloride 0.9%) 1,000 mls @ 80 mls/hr IV .[id number] [facility] Aztreonam (Azactam 2 Gm) 100 mls @ 100 mls/hr IVPB Q8 [facility] PRN Reason: Protocol Stop: 08/27/17 22:59 Last Admin: 08/27/17 14:25 Dose: 100 mls/hr Insulin Detemir (Levemir) 10 unit SC HS [facility] Last Admin: 08/26/17 21:52 Dose: Not Given Insulin Human Regular (Humulin R Med) 0 units SC ACHS [facility] PRN Reason: Protocol Last Admin: 08/27/17 12:00 Dose: Not Given Methylprednisolone (Solu-Medrol) 40 mg IVP Q12 [facility] Last Admin: 08/27/17 10:33 Dose: 40 mg Montelukast Sodium (Singulair) 10 mg PO HS [facility] Last Admin: 08/26/17 21:55 Dose: 10 mg Mupirocin (Bactroban Ointment) 0 gm TOP BID [facility] Physical Exam - Constitutional Appears: Non-toxic, No Acute Distress - Head Exam Head Exam: NORMAL INSPECTION - Eye Exam Eye Exam: Normal appearance - ENT Exam ENT Exam: Mucous Membranes Moist - Respiratory Exam Respiratory Exam: Rales, NORMAL BREATHING PATTERN - Cardiovascular Exam Cardiovascular Exam: REGULAR RHYTHM, +S1, +S2 - GI/Abdominal Exam GI & Abdominal Exam: Normal Bowel Sounds, Soft - Extremities Exam Additional comments: bilateral LE wounds Results - Vital Signs Recent Vital Signs: Last Vital Signs Temp 98.5 F 08/27/17 12:00 Pulse 88 08/27/17 12:00 Resp 20 08/27/17 12:00 BP 140/74 08/27/17 12:00 Pulse Ox 94 L 08/27/17 05:20 - Labs Result Diagrams: 08/27/17 06:00 08/27/17 06:00 Labs: Laboratory Results - last 24 hr 08/26/17 08/26/17 08/27/17 17:04 21:23 06:00 WBC 6.1 RBC 4.49 Hgb 11.9 L Hct 40.3 MCV 89.8 MCH 26.5 MCHC 29.5 L RDW 21.5 H Plt Count 173 Gran % 90.7 H Lymph % (Auto) 6.0 L [place] % (Auto) 3.3 Eos % (Auto) 0.0 L Baso % (Auto) 0.0 Gran # 5.49 Lymph # (Auto) 0.4 L [place] # (Auto) 0.2 Eos # (Auto) 0.0 Baso # (Auto) 0.00 PT INR Sodium Potassium Chloride Carbon Dioxide Anion Gap BUN Creatinine Est GFR ( Amer) Est GFR (Non-Af Amer) POC Glucose (mg/dL) 173 H 139 H Random Glucose Calcium Total Bilirubin AST ALT Alkaline Phosphatase Total Protein Albumin Globulin Albumin/Globulin Ratio 08/27/17 08/27/17 08/27/17 06:00 06:00 07:19 WBC RBC Hgb Hct MCV MCH MCHC RDW Plt Count Gran % Lymph % (Auto) [place] % (Auto) Eos % (Auto) Baso % (Auto) Gran # Lymph # (Auto) [place] # (Auto) Eos # (Auto) Baso # (Auto) PT 25.6 H INR 2.19 H Sodium 146 Potassium 4.9 Chloride 111 H Carbon Dioxide 24 Anion Gap 16 BUN 48 H Creatinine 1.5 H Est GFR ( Amer) 40 Est GFR (Non-Af Amer) 33 POC Glucose (mg/dL) 125 H Random Glucose 139 H Calcium 8.4 Total Bilirubin 0.9 AST 25 ALT 20 Alkaline Phosphatase 98 Total Protein 6.9 Albumin 3.0 Globulin 3.9 Albumin/Globulin Ratio 0.8 L 08/27/17 11:27 WBC RBC Hgb Hct MCV MCH MCHC RDW Plt Count Gran % Lymph % (Auto) [place] % (Auto) Eos % (Auto) Baso % (Auto) Gran # Lymph # (Auto) [place] # (Auto) Eos # (Auto) Baso # (Auto) PT INR Sodium Potassium Chloride Carbon Dioxide Anion Gap BUN Creatinine Est GFR ( Amer) Est GFR (Non-Af Amer) POC Glucose (mg/dL) 134 H Random Glucose Calcium Total Bilirubin AST ALT Alkaline Phosphatase Total Protein Albumin Globulin Albumin/Globulin Ratio - Imaging and Cardiology CT scan - chest Status: Image reviewed by me, Report reviewed by me Assessment & Plan - Assessment and Plan (Free Text) Assessment: 82yo female a/w multifocal PNA and pleural effusion - currently afebrile, HD stable, comfortable in NAD, on room air sat 94% - CT chest reviewed, chronic R sided pleural effusion, with atelectasis and opacities multifocal in nature - would continue with Aztreonam, Vanco, add Azithromycin - check Urine Lg, Strep - Procal noted - follow up ID - decrease steroids, Solumedrol 20mg Q12hr - Duonebs PRN - OOB to chair - DVT ppx, Eliquis - Pulmonary will continue to follow
--- NOTE | 2017-08-27 16:38 | CP.PCM.PN ---
Subjective - Date & Time of Evaluation Date of Evaluation: 08/27/17 Time of Evaluation: 15:30 - Subjective Subjective: Infectious Disease Follow Up: August 27, 2017 82 yo female well known to me sent from [facility]. Patient with known left lower leg gangrene. Patient with increasing coughing over the past 2 weeks. Poor appetite. No reports of fevers or chills. Chest X-ray here is negative. CT scan of chest showing right pleural effusion with subsegmental atelectasis in right lung upper and lower lobe. The patient cannot give a consistent story when spoken to. Right facial droop noted. The patient also appears more cachetic. Two of the more significant medical issues is her gangrene of the left leg with PVD and chronic non-healing ulcers and the persistent pneumonia findings on the right lung. The patient is denying most symptoms at this point. Noted Palliative care was asked to evaluate the patient, and the patient want to remain a Full Code. Gram negative rods on wound cultures. Objective - Vital Signs/Intake and Output Vital Signs (last 24 hours): Temp Pulse Resp BP Pulse Ox 98.5 F 88 20 140/74 94 L 08/27/17 12:00 08/27/17 12:00 08/27/17 12:00 08/27/17 12:00 08/27/17 05:20 Intake and Output: 08/27/17 08/27/17 06:59 18:59 Intake Total 600 Output Total 500 Balance 100 - Medications Medications: Current Medications Acetaminophen (Tylenol 325mg Tab) 650 mg PO Q6H PRN PRN Reason: Fever >100.4 F Apixaban (Eliquis) 2.5 mg PO BID [facility] PRN Reason: Protocol Last Admin: 08/27/17 10:32 Dose: 2.5 mg Colchicine (Colocrys) 0.6 mg PO DAILY [facility] Last Admin: 08/27/17 10:32 Dose: 0.6 mg Famotidine (Pepcid) 20 mg PO 2200 [facility] Last Admin: 08/26/17 21:55 Dose: 20 mg Vancomycin HCl (Vancomycin 1gm) 1 gm in 250 mls @ 167 mls/hr IVPB DAILY [facility] PRN Reason: Protocol Last Admin: 08/27/17 10:30 Dose: 167 mls/hr Sodium Chloride (Sodium Chloride 0.9%) 1,000 mls @ 80 mls/hr IV .[id number] [facility] Aztreonam (Azactam 2 Gm) 100 mls @ 100 mls/hr IVPB Q8 [facility] PRN Reason: Protocol Stop: 08/27/17 22:59 Last Admin: 08/27/17 14:25 Dose: 100 mls/hr Insulin Detemir (Levemir) 10 unit SC [facility] Last Admin: 08/26/17 21:52 Dose: Not Given Insulin Human Regular (Humulin R Med) 0 units SC ACHS [facility] PRN Reason: Protocol Last Admin: 08/27/17 12:00 Dose: Not Given Methylprednisolone (Solu-Medrol) 40 mg IVP Q12 [facility] Last Admin: 08/27/17 10:33 Dose: 40 mg Montelukast Sodium (Singulair) 10 mg PO [facility] Last Admin: 08/26/17 21:55 Dose: 10 mg Mupirocin (Bactroban Ointment) 0 gm TOP BID [facility] - Labs Labs: 08/27/17 06:00 08/27/17 06:00 PT 25.6 SECONDS (9.4-12.5) H 08/27/17 06:00 INR 2.19 (0.93-1.08) H 08/27/17 06:00 APTT 45.3 Seconds (25.1-36.5) H 08/25/17 17:45 - Constitutional Appears: Cachectic, Chronically Ill - Head Exam Head Exam: ATRAUMATIC, NORMOCEPHALIC Additional comments: right facial droop - Eye Exam Eye Exam: EOMI, PERRL Pupil Exam: NORMAL ACCOMODATION, PERRL - ENT Exam ENT Exam: Mucous Membranes Moist, Normal External Ear Exam, TM's Normal Bilaterally - Neck Exam Neck Exam: Full ROM, Normal Inspection - Respiratory Exam Respiratory Exam: Decreased Breath Sounds Additional comments: severely decreased in right upper and lower lobes. - Cardiovascular Exam Cardiovascular Exam: REGULAR RHYTHM, RRR, +S1, +S2 - GI/Abdominal Exam GI & Abdominal Exam: Soft, Normal Bowel Sounds. absent: Distended, Tenderness - Extremities Exam Extremities Exam: Full ROM, Normal Inspection - Neurological Exam Neurological Exam: Alert, Awake, CN II-XII Intact, Oriented x3 Additional comments: Patient has some confusion. - Psychiatric Exam Psychiatric exam: Normal Affect, Normal Mood - Skin Additional comments: left leg with dark discoloration and heavy growth of tinea. Recommendations on previous hospitalizations were for amputation of the left leg. Assessment and Plan - Assessment and Plan (Free Text) Assessment: 82 yo female with multiple medical issues presenting from [facility] for [facility]. The patient appears more cachetic to me and appears to have a new right facial droop when seen. The patient still has the issues with the left leg. Amputation of the left leg remains the recommendation for care. In the past, she was able to tolerate meropenem after a desensitization protocol was followed. On Aztreonam, Vancomcyin, and Azithromycin as part of the patient's regimen. Check blood and urine culture. Gram negative rods in wound cultures. Supportive care. Thank you for allowing me to participate in the care of the patient, we will follow with you.
--- NOTE | 2017-08-27 18:25 | CON ---
DATE: HISTORY OF PRESENT ILLNESS: An 82-year-old diabetic female seen at bedside for chronic 15-year-old left lower leg ulceration. The patient was admitted for altered mental status. PAST MEDICAL HISTORY: The patient's medical history is significant for longstanding uncontrolled insulin-dependent diabetes with peripheral vascular disease, hypothyroidism, atrial fibrillation, COPD, and chronic left leg ulceration with numerous and frequent bouts of cellulitis. The patient has refused below-knee amputation many times. PAST SURGICAL HISTORY: Significant for pacemaker. ALLERGIES: INCLUDE BANANA, INFLUENZA VACCINE, KIWI, TOMATO, PENICILLIN, SULFA, AND PNEUMOCOCCAL VACCINE. SOCIAL HISTORY: The patient is currently a resident at [facility]. Denies any illicit drug use. Does not use tobacco or alcohol products. FAMILY HISTORY: Unremarkable. HOME MEDICATIONS: Noted in JUL. PHYSICAL EXAMINATION: VITAL SIGNS: Reveal temperature of 97.9, pulse rate of 96, blood pressure of 137/88, respiratory rate of 20. EXTREMITIES: Nonpalpable pedal pulses noted bilaterally. Absent pedal hair growth noted bilaterally. Lower extremity skin presents thin, shining, and discolored bilaterally. The patient is unable to detect 5.07 g monofilament wire testing bilaterally. Capillary filling time is delayed x10. The patient has a full-thickness ulceration on the anterior lateral lower leg and ankle. The ulceration has a primarily fibrotic and granular base. There is noted to be clear serous fluid only. There is no purulence. There is no malodor. The wound does not probe to tendon or bone. There are no signs of ascending cellulitis. LABORATORY FINDINGS: Reveal white count of 6.1, hemoglobin 11.9, hematocrit of 40.3, and platelet count of 173. Left ankle culture reveals no polymorphonuclear white blood cells or no organisms seen preliminarily. ASSESSMENT: Full-thickness venous stasis ulceration in the left lower leg. PLAN: The patient's wound was cultured and sent for sensitivity. Wound was cleansed with normal sterile saline. We will apply Bactroban nonadherent sterile gauze and a dry sterile dressing daily. We will order foam Multi Podus boots to offload the wounds. The patient will be seen and followed daily. Ge Gilbert DPM
--- NOTE | 2017-08-27 19:04 | CARD ---
APPROVED REPORT EXAM: Two-dimensional and M-mode echocardiogram with Doppler and color Doppler. INDICATION 2D DIMENSIONS Left Atrium (2D)4.6 (1.6-4.0cm)IVSd1.0 (0.7-1.1cm) LVDd4.2 (3.9-5.9cm)LVOT Diameter1.8 (1.8-2.4cm) PWd1.0 (0.7-1.1cm)LVDs3.2 (2.5-4.0cm) FS (%) 24.0 %LVEF (%)48.3 (>50%) M-Mode DIMENSIONS Aortic Root2.70 (2.2-3.7cm)Aortic Cusp Exc.1.10 (1.5-2.0cm) Aortic Valve AoV Peak Zjvykbpc631.0cm/sAoV VTI24.8cmAO Peak GR.7mmHg LVOT Peak Lbdorpxq84.6cm/sLVOT VTI10.80cmAO Mean GR.4mmHg ANGY (VMAX)1.71vp3JFS (VTI)1.17dq3WE P 1/2 Vdhf823al Mitral Valve MV E Drgafewx076.0cm/sMV E Peak Gr.82mmHgMV A Atfnlnki49.7cm/s E/A ratio1.7 TDI Lateral E' Peak V6.47cm/sMedial E' Peak V5.30cm/sE/Lateral E'15.8 E/Medial E'19.2 Tricuspid Valve TR Peak Gcbvygmf381ce/sRAP [id number] Peak Gr.61mmHg [id number] LEFT VENTRICLE The left ventricle is normal size. There is normal left ventricular wall thickness. The systolic function is mildly impaired.EF-45% There is a flattened septum consistent with right ventricle volume and pressure overload. Transmitral Doppler flow pattern is Grade II-pseudonormal filling dynamics. No left ventricle thrombus noted on this study. There is no ventricular septal defect visualized. There is no left ventricular aneurysm. There is no mass noted in the left ventricle. RIGHT VENTRICLE The right ventricle is severely dilated. There is normal right ventricular wall thickness. Systolic function of RV is moderately to severely reduced. There is a pacemaker lead in the right ventricle. ATRIA The left atrium is moderately dilated. The right atrium is moderately dilated. There is a catheter/pacemaker lead seen in the right atrium. The interatrial septum is intact with no evidence for an atrial septal defect. AORTIC VALVE The aortic valve is calcified and displays decreased opening. There is mild aortic regurgitation. There is mild valvular aortic stenosis. There is no aortic valvular vegetation. MITRAL VALVE The mitral valve is thickened but opens well. Mitral annular calcification is mild. Mitral regurgitation is moderate. There is no mitral valve stenosis. There is no evidence of mitral valve prolapse. TRICUSPID VALVE The tricuspid valve leaflets are thickened , but open well. There is severe tricuspid regurgitation.RVSP-71 mmof hg. There is moderate to severe pulmonary hypertension. There is no tricuspid valve stenosis. There is no tricuspid valve prolapse or vegetation. PULMONIC VALVE The pulmonic valve is mildly thickened. There is mild pulmonic valvular regurgitation. There is no pulmonic valvular stenosis. GREAT VESSELS The aortic root is normal in size. The ascending aorta is normal in size. The pulmonary artery is normal. The IVC is normal in size and collapses >50% with inspiration. PERICARDIAL EFFUSION There is moderate left pleural effusion. There is no pericardial effusion. <Conclusion> The left ventricle is normal size. There is normal left ventricular wall thickness. The systolic function is mildly impaired.EF-45% The right ventricle is severely dilated. Systolic function of RV is moderately to severely reduced. There is a pacemaker lead in the right ventricle. There is mild aortic regurgitation. There is mild valvular aortic stenosis. Mitral regurgitation is moderate. There is severe tricuspid regurgitation.RVSP-71 mmof hg. There is moderate to severe pulmonary hypertension. There is mild pulmonic valvular regurgitation. The IVC is normal in size and collapses >50% with inspiration. There is moderate left pleural effusion. There is no pericardial effusion. No Vegetation or thrombus noted. PPM Lead noted in RA/RV.
--- NOTE | 2017-08-27 21:49 | CON ---
DATE: 08/27/2017 REASON FOR CONSULTATION: Acute kidney injury, shortness of breath. HISTORY OF PRESENT ILLNESS: An 82-year-old lady previously unknown to me. The patient admitted on the with complaints of cough, shortness of breath. [facility] was actually [facility] into the [facility] with altered mental status. There was no history of fever or chills. No history of any chest pain. No history of nausea, vomiting, diarrhea. Currently, she is awake, but confused (?). She reports she is in the hospital because she had surgery. In the emergency room, she was found to have an elevated creatinine of 1.8. Hence, consultation is requested. PAST MEDICAL AND SURGICAL HISTORY: Chronic AFib on anticoagulation, hypothyroidism, chronic lower extremity edema/cellulitis, COPD, permanent pacemaker. FAMILY HISTORY: Noncontributory. SOCIAL HISTORY: No smoking, no alcohol use, no IV drug abuse. ALLERGIES: SULFA, PENICILLIN. MEDICATIONS: In the [facility], Lyrica, Singulair, Lopressor, mag oxide, insulin, Feosol, Pepcid, Procrit 40,000 units once a week (?), colchicine, Eliquis. REVIEW OF SYSTEMS: The patient complains of cough, shortness of breath, grayish phlegm. She denies any fever or chills. She denies any nausea, vomiting or diarrhea. She denies any urinary complaints. All other systems are unremarkable. PHYSICAL EXAMINATION: GENERAL: Elderly lady lying in bed. VITAL SIGNS: Blood pressure 140/90, heart rate 96, respiratory rate 20, temperature 97.9, T-max is 100.3. HEENT: Normocephalic, atraumatic, positive pallor. NECK: Supple, no JVD. LUNGS: Bilateral equal air entry, bilateral rhonchi, diffuse expiratory wheeze. CARDIAC: S1 and S2, regular rate and rhythm, no murmur, no rub. ABDOMEN: Obese, distended, soft, nontender, bowel sounds present. EXTREMITIES: Chronic stasis changes, dressing of the right foot. INTAKE AND OUTPUT: Not charted. LABORATORY DATA: WBC 6, hemoglobin 11.9, hematocrit 40, platelets 173. Sodium 146, potassium 4.9, chloride 111, CO2 24, BUN 48, creatinine 1.5, glucose 139, calcium 8.4, AST 25, ALT 20, albumin 3, globulin 3.9. Urinalysis, yellow clear, pH 5.5, specific gravity 1.030, protein 30, ketones trace, blood negative, nitrite negative. Chest CT, moderate right pleural effusion and trace left pleural effusion, no pneumothorax. CURRENT MEDICATIONS: Colcrys 0.6, Eliquis 2.5 b.i.d., insulin, Pepcid, Singulair, normal saline at 80, Solu-Medrol 40 IV every 12, vancomycin 1 g daily, Azactam 2 g every 8, Lasix 20 mg given this morning. ASSESSMENT: 1. Acute kidney injury superimposed on chronic kidney disease stage III. 2. Chronic obstructive pulmonary disease exacerbation. 3. Mild decompensated congestive heart failure. 4. Noninsulin-dependent diabetes mellitus. 5. Hypertension. 6. Recurrent cellulitis. 7. Paroxysmal atrial fibrillation. PLAN: 1. Avoid nephrotoxins. 2. empiric antibiotics for creatinine clearance about 30 mL/minute. 3. Does not appear to need IV fluids. 4. Cautiously diurese. 5. Wound care. 6. Continue antibiotics for wound infection. Carisa Wilcox MD
[2017-08-27] MEDS: Insulin Detemir 100 units/ml Vial (Levemir) SC SCH (22:55)
[2017-08-28 07:03] LABS: EOS % 0.1 % (1.5-5.0); GRAN % 92.6 % (50.0-68.0); HEMOGLOBIN 12.5 g/dL (12.0-16.0); LYMPH # 0.3 (1.2-3.4); LYMPH % 4.1 % (22.0-35.0); MEAN CELL VOLUME 87.9 fl (80.0-105.0); MEAN CORPUSCULAR HEMOGLOBIN 26.2 pg (25.0-35.0); MEAN CORPUSCULAR HGB CONC 29.8 g/dl (31.0-37.0); MONO # 0.2 (0.1-0.6); MONO % 3.2 % (1.0-6.0); PLATELET COUNT 213 10^3/uL (120.0-450.0); RBC 4.78 10^6/uL (3.5-6.1); RED CELL DISTRIBUTION WIDTH 21.2 % (11.5-14.5); WHITE BLOOD COUNT 7.6 10^3/ul (4.5-11.0)
[2017-08-28 07:37] LABS: ALB/GLOB RATIO 0.8 (1.1-1.8); ALBUMIN 3.2 g/dL (3.0-4.8); CALCIUM 8.4 mg/dL (8.4-10.5)
[2017-08-28] MEDS: Insulin Reg-MEDIUM-Coverage SC SCH ×4 (08:03→22:48)
[2017-08-28] MEDS: MethylPREDNISolone 40 mg Vial IVP SCH ×2 (10:16→21:59)
[2017-08-28] MEDS ORDERED: Linezolid 600 mg in D5W 300 ml 600 MG/300 ML BAG IVPB SCH (10:30)
[2017-08-28] MEDS ORDERED: Ciprofloxacin 400mg/200ml D5W 400 MG/200 ML BAG IVPB SCH (10:30)
[2017-08-28 11:37] LABS: INR 2.49 (0.93-1.08); PROTHROMBIN TIME 29.2 SECONDS (9.4-12.5)
--- NOTE | 2017-08-28 12:48 | CP.PCM.PN ---
<ZairaNikhil - Last Filed: 08/28/17 12:45> Subjective - Date & Time of Evaluation Date of Evaluation: 08/28/17 Time of Evaluation: 12:45 - Subjective Subjective: Medicine Progress Note Pt seen and examined at bedside. No acute overnight events. Pt states that breathing ok and offers no other complaints. Pt denies CP, SOB, n/v/d, abdominal pain, fever, chills, JAY, or dizziness. Objective - Vital Signs/Intake and Output Vital Signs (last 24 hours): Temp Pulse Resp BP Pulse Ox 97.7 F 101 H 20 138/100 H 94 L 08/28/17 12:00 08/28/17 12:00 08/28/17 12:00 08/28/17 12:16 08/28/17 06:00 Intake and Output: 08/28/17 08/28/17 06:59 18:59 Intake Total 240 Output Total 500 Balance -260 - Medications Medications: Current Medications Acetaminophen (Tylenol 325mg Tab) 650 mg PO Q6H PRN PRN Reason: Fever >100.4 F Apixaban (Eliquis) 2.5 mg PO BID [facility] PRN Reason: Protocol Last Admin: 08/28/17 10:16 Dose: 2.5 mg Colchicine (Colocrys) 0.6 mg PO DAILY [facility] Last Admin: 08/28/17 10:15 Dose: 0.6 mg Famotidine (Pepcid) 20 mg PO 2200 [facility] Last Admin: 08/27/17 22:54 Dose: 20 mg Furosemide (Lasix) 40 mg IVP DAILY [facility] Last Admin: 08/28/17 12:16 Dose: 40 mg Sodium Chloride (Sodium Chloride 0.9%) 1,000 mls @ 80 mls/hr IV .[id number] [facility] Insulin Detemir (Levemir) 10 unit SC HS [facility] Last Admin: 08/27/17 22:55 Dose: 10 unit Insulin Human Regular (Humulin R Med) 0 units SC ACHS [facility] PRN Reason: Protocol Last Admin: 08/28/17 12:15 Dose: 1 units Methylprednisolone (Solu-Medrol) 20 mg IVP Q12 [facility] Last Admin: 08/28/17 10:16 Dose: 20 mg Metoprolol Tartrate (Lopressor) 25 mg PO BID [facility] Last Admin: 08/28/17 10:15 Dose: 25 mg Montelukast Sodium (Singulair) 10 mg PO HS [facility] Last Admin: 08/27/17 22:55 Dose: 10 mg Mupirocin (Bactroban Ointment) 0 gm TOP BID [facility] Last Admin: 08/28/17 10:20 Dose: Not Given - Labs Labs: 08/28/17 06:00 08/28/17 06:00 PT 29.2 SECONDS (9.4-12.5) H 08/28/17 10:15 INR 2.49 (0.93-1.08) H 08/28/17 10:15 APTT 45.3 Seconds (25.1-36.5) H 08/25/17 17:45 - Constitutional Appears: No Acute Distress - Head Exam Head Exam: NORMAL INSPECTION - Eye Exam Eye Exam: Normal appearance - ENT Exam ENT Exam: Normal Exam - Respiratory Exam Respiratory Exam: Clear to Ausculation Bilateral. absent: Rales, Rhonchi, Wheezes - Cardiovascular Exam Cardiovascular Exam: Tachycardia, +S1, +S2. absent: Gallop, Rubs, Murmur - GI/Abdominal Exam GI & Abdominal Exam: Soft. absent: Distended, Guarding, Tenderness, Rebound - Extremities Exam Extremities Exam: Normal Inspection Additional comments: Ulcer noted left lower extremity - Back Exam Back Exam: NORMAL INSPECTION - Neurological Exam Neurological Exam: Alert, Awake, Oriented x3 - Psychiatric Exam Psychiatric exam: Normal Affect, Normal Mood - Skin Skin Exam: Dry, Intact, Normal Color, Warm Assessment and Plan - Assessment and Plan (Free Text) Assessment: 82 year old female with a PMHx of diabetes - A-fib (On Eliquis), Hypothyroidism , chronic left leg swelling/cellulitis, and COPD. Patient was brought in by [facility] for altered mental status. Admitted for evaluation and treatment of pneumonia vs. pleural effusion. Plan: 1. Pneumonia vs. Pleural Effusion - Last admission in 03/2017, however in the setting of halfway will cover for HCAP - Febrile on admission, no leukocytosis - No Acute Changes on Head CT - CXR(Adm): Multifocal consolidation in the right lung; follow up CXR unchaged - Chest CT shows moderate effusion in right lung and minor effusion in left lung , no acute infiltrate - Procal 0.13 - Follow up Urine Legionella, Mycoplasma, Strep Pneu - Flu negative - Blood/Urine Cultures negative after 48 hrs - UA negative - Cont Vancomycin, Aztreonam, Azithromycin - Lasix 40 mg IVP daily - Tapered Solumedrol to 20 mg q12h - Chest PT - ID consulted - Pulm consulted 2. Hx of Pulm HTN - Last ECHO in 11/18 which showed Normal EF with Severe Pulm HTN and Severe Tricuspid Regurgitation - Repeat ECHO showed EF 48.3%, RV severely dilated, RV systolic function poor, severe TR - BNP 35215 - Strict I/O - Daily Weights - Ruzi Catheter - Pulm consulted 3. ARIEL - Creatinine improving - Nephro consulted 4. Dehydration - Hemoconcentrated, improved - Clinically dehydrated, improved - Holding fluids as CT shows pleural effusion 5. Hyperkalemia, resolved - Cont to monitor 6. Facial Droop - Head CT on admission showed no acute changes - Repeat Head CT negative 7. LLE Ulcer - Wound cultures Left Leg: Staph aureus Left Thigh: VRE, Pseudomonas Left Ankle: Pseudomonas, Staph aureus, Coagulase negative staph - Wound care consulted - Podiatry consulted 8. Hx of A. fib - Cont eliquis - Lopressor 25 mg PO BID 9. Hx of COPD - Home Singuliar - DuoNebs Q6H [facility]/Q2H PRN 10. Hx of Hypothyroidism. - TSH WNL (02/18) 11. Hx of DM - Levemir 10 u HS - ISS - Accucheck ACHS GI/DVT PPx - Eliquis - Pepcid Dispo: Palliative care discussed with patient code status and is now full code. Patient seen and discussed in detail with Dr. Chavira. Adalberto Meneses, PGY1 <Slava Chavira - Last Filed: 08/28/17 18:44> Objective - Vital Signs/Intake and Output Vital Signs (last 24 hours): Temp Pulse Resp BP Pulse Ox 97.6 F 95 H 20 137/82 94 L 08/28/17 17:16 08/28/17 17:16 08/28/17 17:16 08/28/17 17:16 08/28/17 06:00 Intake and Output: 08/28/17 08/28/17 06:59 18:59 Intake Total 240 Output Total 500 Balance -260 - Medications Medications: Current Medications Acetaminophen (Tylenol 325mg Tab) 650 mg PO Q6H PRN PRN Reason: Fever >100.4 F Apixaban (Eliquis) 2.5 mg PO BID [facility] PRN Reason: Protocol Last Admin: 08/28/17 17:58 Dose: Not Given Colchicine (Colocrys) 0.6 mg PO DAILY [facility] Last Admin: 08/28/17 10:15 Dose: 0.6 mg Famotidine (Pepcid) 20 mg PO 2200 [facility] Last Admin: 08/27/17 22:54 Dose: 20 mg Furosemide (Lasix) 40 mg IVP DAILY [facility] Last Admin: 08/28/17 12:16 Dose: 40 mg Sodium Chloride (Sodium Chloride 0.9%) 1,000 mls @ 80 mls/hr IV .[id number] [facility] Azithromycin (Zithromax 500mg In Ns) 500 mg in 250 mls @ 167 mls/hr IVPB DAILY [facility] PRN Reason: Protocol Last Admin: 08/28/17 17:41 Dose: 167 mls/hr Aztreonam (Azactam 1 Gm) 100 mls @ 100 mls/hr IVPB Q8 [facility] PRN Reason: Protocol Insulin Detemir (Levemir) 10 unit SC HS [facility] Last Admin: 08/27/17 22:55 Dose: 10 unit Insulin Human Regular (Humulin R Med) 0 units SC ACHS [facility] PRN Reason: Protocol Last Admin: 08/28/17 17:43 Dose: 1 units Methylprednisolone (Solu-Medrol) 20 mg IVP Q12 [facility] Last Admin: 08/28/17 10:16 Dose: 20 mg Metoprolol Tartrate (Lopressor) 25 mg PO BID [facility] Last Admin: 08/28/17 17:59 Dose: Not Given Montelukast Sodium (Singulair) 10 mg PO HS [facility] Last Admin: 08/27/17 22:55 Dose: 10 mg Mupirocin (Bactroban Ointment) 0 gm TOP BID [facility] Last Admin: 08/28/17 17:58 Dose: Not Given - Labs Labs: 08/28/17 06:00 08/28/17 06:00 PT 29.2 SECONDS (9.4-12.5) H 08/28/17 10:15 INR 2.49 (0.93-1.08) H 08/28/17 10:15 APTT 45.3 Seconds (25.1-36.5) H 08/25/17 17:45 Attending/Attestation - Attestation I have personally seen and examined this patient.: Yes I have fully participated in the care of the patient.: Yes I have reviewed all pertinent clinical information, including history, physical exam and plan: Yes Notes (Text): I have seen and examined the patient at bedside. Agree with the above note. Labs reviewed. Discussed with consultants. Patient is full code.
--- NOTE | 2017-08-28 13:06 | PN ---
DATE: 08/28/2017 SUBJECTIVE: An 82-year-old diabetic female, seen at bedside for continued evaluation and management of a chronic nonhealing left lower leg ulceration. The patient is reporting no pain at the ulcerated area. She has been afebrile. The patient's vital signs revealed temperature of 97.8, pulse rate of 113, blood pressure of 157/80, respiratory rate of 20. Laboratory findings reveal white count of 7.6, hemoglobin of 12.5, hematocrit of 42, platelet count of 213. Culture of the left lower leg ulceration reveals no organisms preliminarily. OBJECTIVE: Nonpalpable pedal pulses noted bilaterally. Absent pedal hair growth noted bilaterally. The patient is unable to detect 5.07 g monofilament wire testing bilaterally. Capillary filling time is delayed x10. The patient has a full-thickness ulceration on the anterolateral lower leg and ankle. Ulceration remains a mixture of fibrotic and granular tissue. There is noted to be minimal clear serous drainage only. There is no purulence. The wound does not probe to tendon or bone. There are no signs of underlying abscess formation. There are no signs of ascending cellulitis. ASSESSMENT: Full-thickness venous stasis ulceration in the left lower leg. PLAN: The patient's wound was cultured. The patient's wound was cleansed with normal sterile saline. We will apply Bactroban, nonadherent sterile gauze and a dry sterile dressing daily. C&S taken yesterday reveals no growth preliminarily. We will continue to offload both feet and heels with a formal type Podus boots at all times. The patient will be seen and followed daily. Ge Gilbert DPM
[2017-08-28] MEDS ORDERED: Aztreonam 2 Gm in NS 100mL 100 ML IVPB SCH (14:00)
--- NOTE | 2017-08-28 15:44 | PN ---
DATE: 08/28/2017 SUBJECTIVE: The patient was seen and examined at bedside. She reports that subjectively she is feeling better including her breathing. PHYSICAL EXAMINATION: VITAL SIGNS: Temperature 97.8, heart rate 113, blood pressure 147/80, oxygen saturation 94% on 4 L nasal cannula, respiratory rate 20. ENT: Head and neck atraumatic. LUNGS: A few crackles and rhonchi on the right side, a little bit less on the left side. Decreased breath sounds in the right lower lobe. HEART: Irregular rate and rhythm. S1, S2 distant. ABDOMEN: Soft, nontender, nondistended. MUSCULOSKELETAL: There are acute on chronic cellulitic changes on both lower extremities. SKIN: Moist. PSYCH: The patient is alert, awake, and oriented x3, comfortable. LABORATORY DATA: WBC is 7.6, hemoglobin 12.5, platelet count 213. Sodium 142; potassium 4.7; chloride 108; carbon dioxide 21; BUN 53; creatinine 1.4, down from 1.5; glucose 167; AST 33; ALT 23; total bilirubin 1. Procalcitonin 0.13 (low). ProBNP 23,900 (slightly trending down on oral diuretics therapy). INR 2.19. Urine negative for leukocyte esterase and urine nitrite. Microbiology positive for wound culture for gram-positive cocci of VRE (sensitive to ampicillin, linezolid, and tigecycline) as well as Pseudomonas aeruginosa (as the patient is allergic to penicillin, although limited antibiotics are currently available, sensitive to amikacin, ciprofloxacin, gentamicin, tobramycin. Resistant to cefepime). MEDICATIONS: Tylenol p.r.n., Eliquis, colchicine, Pepcid, Levemir, regular insulin sliding scale medium protocol, Solu-Medrol 20 mg IV q. 12h., metoprolol, Singulair, vancomycin 1 g daily. Echocardiogram performed 2 days ago revealed severe pulmonary hypertension with severely decreased right ventricular systolic function and dilatation of the right ventricle with left ventricle only mildly decreased. CAT scan showed bilateral infiltrate with right more than left, some ground-glass changes, and moderate pleural effusion on the right side. ASSESSMENT AND PLAN: This is an 82-year-old lady, who presented with severe community-acquired pneumonia in the setting of right ventricular failure and severe pulmonary hypertension. I would proceed with antibiotics. I will touch base with Infectious Disease Service to adjust antibiotic therapy. Procalcitonin is low, and upon completion of 5 days' antibiotic therapy and establishing of clinical stability provided procalcitonin remains low, antibiotics should be considered for stopping. At present time, however, the patient is subjectively doing better. Her renal function is improving. She is hemodynamically and respiratory-martínez stable. She is not febrile. The patient does have some congestive heart failure and right ventricular failure with severe pulmonary hypertension is concerning. I would try with more aggressive diuresis. We will continue with conservative fluid management. I would trend proBNP. Going back to severe community-acquired pneumonia, I agree with low-dose steroids (I would check influenza serology; Legionella, and streptococcal urine antigen are pending. Blood culture is negative so far). I would continue to target euvolemia, euglycemia, normothermia, and oxygen saturation more than 90%. We will continue with gastrointestinal prophylaxis. The patient is on Eliquis for atrial fibrillation. ccm time 40 min Monty Joshi MD LUIS FELIPE
[2017-08-28] MEDS: Azithromycin 500MG/NS 250ml 500 MG/250 ML BAG IVPB SCH (17:41)
--- NOTE | 2017-08-28 21:25 | PN ---
DATE: 08/28/2017 SUBJECTIVE: The patient is seen lying in bed. She is awake. She is alert. She is little agitated. She complains of cough. She complains of shortness of breath. PHYSICAL EXAMINATION: GENERAL: Elderly lady lying in bed. VITAL SIGNS: Blood pressure 138/100, heart rate 101, respiratory rate 20, temperature 97.7. HEENT: Normocephalic, atraumatic. NECK: Supple, no JVD. LUNGS: Bilateral rhonchi, bilateral expiratory wheeze. CARDIAC: S1, S2, regular rate rhythm, no murmur, no rub. ABDOMEN: Obese, distended, soft, nontender, bowel sounds present. EXTREMITIES: Chronic stasis changes, dressing of the foot. INTAKE AND OUTPUT: 840/1000. LABORATORY DATA: WBC 7.6, hemoglobin 12.5, hematocrit 42, platelets 213. Sodium 142, potassium 4.7, chloride 108, CO2 of 21, BUN 53, creatinine 1.4, glucose 167, calcium 8.4, AST 33, ALT 23, albumin 3.2. Specific gravity of urine was 1030. Wound culture, staph aureus, left thigh culture vancomycin resistant Pseudomonas and . Echocardiogram, normal left ventricular size, normal wall thickness, mildly decreased EF of 45%, severely dilated right ventricle, decreased right ventricular function, moderate left pleural effusion, no pericardial effusion, mild valvular . CURRENT MEDICATIONS: Azactam 2 g every 8 hours, Colcrys 0.6, Eliquis 2.5 b.i.d., insulin, Lasix 40 IV daily, Levemir, Lopressor 25 b.i.d., Pepcid, Singulair, IV fluids on hold, Solu-Medrol, Tylenol, Zithromax. ASSESSMENT: 1. Pneumonia ?. 2. Right ventricular heart failure/severe pulmonary hypertension. 3. Acute kidney injury superimposed on chronic kidney disease stage III. 4. Resolved hyperkalemia. 5. Non-insulin dependent diabetes mellitus. 6. Hypertension. 7. Gangrene/cellulitis/nonhealing ulcers of the left lower extremity. PLAN: 1. ICU consult/recommendations noted. Cautiously diurese. 2. Continue antibiotics as per ID recommendations, dose for creatinine clearance about 30-50 mL/minute. 3. Avoid nephrotoxins. 4. Push p.o. intake. 5. Continue respiratory treatments. 6. Monitor daily labs. Carisa Wilcox MD [facility] # [id number]
[2017-08-28] MEDS: Insulin Detemir 100 units/ml Vial (Levemir) SC SCH (21:58)
[2017-08-28] MEDS ORDERED: Aztreonam 1 Gm in NS 100mL 100 ML IVPB SCH (22:00)
--- NOTE | 2017-08-28 22:02 | CP.PCM.PN ---
Subjective - Date & Time of Evaluation Date of Evaluation: 08/28/17 Time of Evaluation: 19:00 - Subjective Subjective: Infectious Disease Follow Up: August 28, 2017 82 yo female well known to me sent from [facility] for Altered Mental Status. Patient with known left lower leg gangrene. Patient with increasing coughing over the past 2 weeks. Poor appetite. No reports of fevers or chills. Chest X-ray here is negative. CT scan of chest showing right pleural effusion with subsegmental atelectasis in right lung upper and lower lobe. The patient cannot give a consistent story when spoken to. Right facial droop noted. The patient also appears more cachetic. Two of the more significant medical issues is her gangrene of the left leg with PVD and chronic non-healing ulcers and the persistent pneumonia findings on the right lung. The patient is denying most symptoms at this point. Noted Palliative care was asked to evaluate the patient, and the patient want to remain a Full Code. Gram negative rods on wound cultures. Culture growth showing multiple organisms that include VRE, Staph Aureus, and Pseudomonas. Full Sensitivities are not back yet. Objective - Vital Signs/Intake and Output Vital Signs (last 24 hours): Temp Pulse Resp BP Pulse Ox 97.6 F 95 H 20 137/82 94 L 08/28/17 17:16 08/28/17 18:00 08/28/17 17:16 08/28/17 17:16 08/28/17 09:53 - Medications Medications: Current Medications Acetaminophen (Tylenol 325mg Tab) 650 mg PO Q6H PRN PRN Reason: Fever >100.4 F Apixaban (Eliquis) 2.5 mg PO BID [facility] PRN Reason: Protocol Last Admin: 08/28/17 17:58 Dose: Not Given Colchicine (Colocrys) 0.6 mg PO DAILY [facility] Last Admin: 08/28/17 10:15 Dose: 0.6 mg Famotidine (Pepcid) 20 mg PO 2200 [facility] Last Admin: 08/27/17 22:54 Dose: 20 mg Furosemide (Lasix) 40 mg IVP DAILY [facility] Last Admin: 08/28/17 12:16 Dose: 40 mg Sodium Chloride (Sodium Chloride 0.9%) 1,000 mls @ 80 mls/hr IV .[id number] [facility] Azithromycin (Zithromax 500mg In Ns) 500 mg in 250 mls @ 167 mls/hr IVPB DAILY [facility] PRN Reason: Protocol Last Admin: 08/28/17 17:41 Dose: 167 mls/hr Aztreonam (Azactam 1 Gm) 100 mls @ 100 mls/hr IVPB Q8 [facility] PRN Reason: Protocol Insulin Detemir (Levemir) 10 unit SC HS [facility] Last Admin: 08/27/17 22:55 Dose: 10 unit Insulin Human Regular (Humulin R Med) 0 units SC ACHS [facility] PRN Reason: Protocol Last Admin: 08/28/17 17:43 Dose: 1 units Methylprednisolone (Solu-Medrol) 20 mg IVP Q12 [facility] Last Admin: 08/28/17 10:16 Dose: 20 mg Metoprolol Tartrate (Lopressor) 25 mg PO BID [facility] Last Admin: 08/28/17 17:59 Dose: Not Given Montelukast Sodium (Singulair) 10 mg PO HS [facility] Last Admin: 08/27/17 22:55 Dose: 10 mg Mupirocin (Bactroban Ointment) 0 gm TOP BID [facility] Last Admin: 08/28/17 17:58 Dose: Not Given - Labs Labs: 08/28/17 06:00 08/28/17 06:00 PT 29.2 SECONDS (9.4-12.5) H 08/28/17 10:15 INR 2.49 (0.93-1.08) H 08/28/17 10:15 APTT 45.3 Seconds (25.1-36.5) H 08/25/17 17:45 - Constitutional Appears: Cachectic, Chronically Ill - Head Exam Head Exam: ATRAUMATIC, NORMOCEPHALIC Additional comments: right facial droop - Eye Exam Eye Exam: EOMI, PERRL Pupil Exam: NORMAL ACCOMODATION, PERRL - ENT Exam ENT Exam: Mucous Membranes Moist, Normal External Ear Exam, TM's Normal Bilaterally - Neck Exam Neck Exam: Full ROM, Normal Inspection - Respiratory Exam Respiratory Exam: Decreased Breath Sounds Additional comments: decreased in right upper and lower lobes. - Cardiovascular Exam Cardiovascular Exam: REGULAR RHYTHM, RRR, +S1, +S2 - GI/Abdominal Exam GI & Abdominal Exam: Soft, Normal Bowel Sounds. absent: Distended, Tenderness - Extremities Exam Extremities Exam: Full ROM, Normal Inspection - Neurological Exam Neurological Exam: Alert, Awake, CN II-XII Intact Additional comments: Patient has some confusion. - Psychiatric Exam Psychiatric exam: Normal Affect, Normal Mood - Skin Additional comments: left leg with dark discoloration and heavy growth of tinea. Recommendations on previous hospitalizations were for amputation of the left leg. Assessment and Plan - Assessment and Plan (Free Text) Assessment: 82 yo female with multiple medical issues presenting from [facility] for AMS. The patient appears more cachetic to me and appears to have a new right facial droop when seen. The patient still has the issues with the left leg. Amputation of the left leg remains the recommendation for care. In the past, she was able to tolerate meropenem after a desensitization protocol was followed. On Aztreonam, Vancomcyin, and Azithromycin as part of the patient's regimen. Cultures showing Pseudomonas, VRE, and Staph Aureus. Will stop aztreonam and Vancomycin. Start Cipro and Zyvox. Check blood and urine culture. Gram negative rods in wound cultures. Supportive care. Thank you for allowing me to participate in the care of the patient, we will follow with you.
[2017-08-28] MEDS ORDERED: Ciprofloxacin 200mg/100ml D5W 100 ML IVPB SCH ×2 (22:15)
[2017-08-28] MEDS: Ciprofloxacin 200mg/100ml D5W 100 ML IVPB SCH (22:35)
[2017-08-29 06:27] LABS: GRAN # 6.27 (1.4-6.5); GRAN % 90.5 % (50.0-68.0); LYMPH # 0.4 (1.2-3.4); LYMPH % 5.2 % (22.0-35.0); MEAN CELL VOLUME 87.7 fl (80.0-105.0); MEAN CORPUSCULAR HEMOGLOBIN 27.2 pg (25.0-35.0); MEAN PLATELET VOLUME 11.4 fl (7.0-11.0); MONO # 0.3 (0.1-0.6); MONO % 4.3 % (1.0-6.0); RBC 4.78 10^6/uL (3.5-6.1); RED CELL DISTRIBUTION WIDTH 20.8 % (11.5-14.5); WHITE BLOOD COUNT 6.9 10^3/ul (4.5-11.0)
[2017-08-29 07:13] LABS: ALB/GLOB RATIO 0.9 (1.1-1.8); ALBUMIN 3.1 g/dL (3.0-4.8); CALCIUM 8.5 mg/dL (8.4-10.5)
[2017-08-29] MEDS: Insulin Reg-MEDIUM-Coverage SC SCH ×4 (08:17→22:14)
[2017-08-29] MEDS: MethylPREDNISolone 40 mg Vial IVP SCH (10:19)
[2017-08-29] MEDS: Azithromycin 500MG/NS 250ml 500 MG/250 ML BAG IVPB SCH (10:24)
[2017-08-29] MEDS: Linezolid 600 mg in D5W 300 ml 600 MG/300 ML BAG IVPB SCH ×2 (13:08→21:21)
--- NOTE | 2017-08-29 13:21 | CP.PCM.PN ---
<Nikhil Meneses - Last Filed: 08/29/17 13:11> Subjective - Date & Time of Evaluation Date of Evaluation: 08/29/17 Time of Evaluation: 13:11 - Subjective Subjective: Medicine Progress Note Pt seen and examined at bedside. No acute overnight events. Pt offers no complaints at this time. Pt tolerates diet well. Pt denies CP, SOB, n/v/d, abdominal pain, fever, chills, JAY, or dizziness. Objective - Vital Signs/Intake and Output Vital Signs (last 24 hours): Temp Pulse Resp BP Pulse Ox 99.0 F 102 H 18 164/85 H 95 08/29/17 06:00 08/29/17 10:21 08/29/17 06:00 08/29/17 10:22 08/29/17 06:00 Intake and Output: 08/29/17 08/29/17 06:59 18:59 Intake Total 240 Output Total 100 Balance 140 - Medications Medications: Current Medications Acetaminophen (Tylenol 325mg Tab) 650 mg PO Q6H PRN PRN Reason: Fever >100.4 F Apixaban (Eliquis) 2.5 mg PO BID [facility] PRN Reason: Protocol Last Admin: 08/29/17 10:19 Dose: 2.5 mg Colchicine (Colocrys) 0.6 mg PO DAILY [facility] Last Admin: 08/29/17 10:19 Dose: 0.6 mg Famotidine (Pepcid) 20 mg PO 2200 [facility] Last Admin: 08/28/17 21:58 Dose: 20 mg Furosemide (Lasix) 40 mg IVP DAILY [facility] Last Admin: 08/29/17 10:22 Dose: 40 mg Azithromycin (Zithromax 500mg In Ns) 500 mg in 250 mls @ 167 mls/hr IVPB DAILY [facility] PRN Reason: Protocol Last Admin: 08/29/17 10:24 Dose: 167 mls/hr Linezolid (Zyvox 600mg/300ml D5w) 600 mg in 300 mls @ 200 mls/hr IVPB Q12 [facility] PRN Reason: Protocol Ciprofloxacin (Cipro 200mg/100ml D5w) 100 mls @ 67 mls/hr IVPB Q12 [facility] PRN Reason: Protocol Last Admin: 08/28/17 22:35 Dose: 67 mls/hr Insulin Detemir (Levemir) 10 unit SC HS [facility] Last Admin: 08/28/17 21:58 Dose: 10 unit Insulin Human Regular (Humulin R Med) 0 units SC [facility] PRN Reason: Protocol Last Admin: 08/29/17 08:17 Dose: Not Given Metoprolol Tartrate (Lopressor) 25 mg PO BID [facility] Last Admin: 08/29/17 10:21 Dose: 25 mg Montelukast Sodium (Singulair) 10 mg PO [facility] Last Admin: 08/28/17 21:58 Dose: 10 mg Mupirocin (Bactroban Ointment) 0 gm TOP BID [facility] Last Admin: 08/29/17 10:22 Dose: Not Given Prednisone (Prednisone Tab) 40 mg PO DAILY [facility] PRN Reason: Taper Stop: 09/06/17 11:29 - Labs Labs: 08/29/17 05:30 08/29/17 05:30 PT 29.2 SECONDS (9.4-12.5) H 08/28/17 10:15 INR 2.49 (0.93-1.08) H 08/28/17 10:15 APTT 45.3 Seconds (25.1-36.5) H 08/25/17 17:45 - Constitutional Appears: No Acute Distress - Head Exam Head Exam: NORMAL INSPECTION - Eye Exam Eye Exam: Normal appearance - ENT Exam ENT Exam: Normal Exam - Neck Exam Neck Exam: Normal Inspection - Respiratory Exam Respiratory Exam: Clear to Ausculation Bilateral. absent: Rales, Rhonchi, Wheezes - Cardiovascular Exam Cardiovascular Exam: RRR, +S1, +S2. absent: Gallop, Rubs, Murmur - GI/Abdominal Exam GI & Abdominal Exam: Soft. absent: Distended, Guarding, Tenderness, Rebound - Extremities Exam Additional comments: LLE ulcer - Neurological Exam Neurological Exam: Alert, Awake, CN II-XII Intact, Oriented x3 - Psychiatric Exam Psychiatric exam: Normal Affect, Normal Mood - Skin Skin Exam: Dry, Intact, Normal Color, Warm Assessment and Plan - Assessment and Plan (Free Text) Assessment: 82 year old female with a PMHx of diabetes - A-fib (On Eliquis), Hypothyroidism , chronic left leg swelling/cellulitis, and COPD. Patient was brought in by [facility] for altered mental status. Admitted for evaluation and treatment of pneumonia vs. pleural effusion. Plan: 1. Pneumonia vs. Pleural Effusion - Febrile on admission, no leukocytosis - No Acute Changes on Head CT - CXR(Adm): Multifocal consolidation in the right lung; follow up CXR unchaged - Chest CT shows moderate effusion in right lung and minor effusion in left lung , no acute infiltrate - Procal 0.13 - Mycoplasma IgG > 5 - Follow up Urine Legionella, Strep Pneu - Flu negative - Blood/Urine Cultures negative - UA negative - Cont Cipro and Zyvox - Lasix 40 mg IVP daily - Started Prednisone PO taper - Chest PT - ID consulted - Pulm consulted 2. Hx of Pulm HTN - Last ECHO in 11/18 which showed Normal EF with Severe Pulm HTN and Severe Tricuspid Regurgitation - Repeat ECHO showed EF 48.3%, RV severely dilated, RV systolic function poor, severe TR - BNP [id number] - Strict I/O - Daily Weights - Ruiz Catheter - Pulm consulted 3. ARIEL - Creatinine improving - Nephro consulted 4. Dehydration, resolved - Cont to monitor 5. Hyperkalemia, resolved - Cont to monitor 6. Facial Droop - Head CT on admission showed no acute changes - Repeat Head CT negative 7. LLE Ulcer - Wound cultures Left Leg: Staph aureus Left Thigh: VRE, Pseudomonas Left Ankle: Pseudomonas, MRSA, Coagulase negative staph - Wound care consulted - Podiatry consulted 8. Hx of A. fib - Cont eliquis - Lopressor 25 mg PO BID 9. Hx of COPD - Home Singuliar - DuoNebs Q6H [facility]/Q2H PRN 10. Hx of Hypothyroidism. - TSH WNL (02/18) 11. Hx of DM - Levemir 10 u HS - ISS - Accucheck ACHS GI/DVT PPx - Eliquis - Pepcid Dispo: D/C Tele. Patient received midline today. Potential D/C tomorrow as patient can get IV abx and wound care at [facility]. Patient seen and discussed in detail with Dr. Chavira. Adalberto Meneses, PGY1 <Slava Chavira B - Last Filed: 08/29/17 15:51> Objective - Vital Signs/Intake and Output Vital Signs (last 24 hours): Temp Pulse Resp BP Pulse Ox 99.0 F 96 H 18 164/85 H 95 08/29/17 06:00 08/29/17 14:00 08/29/17 06:00 08/29/17 10:22 08/29/17 06:00 Intake and Output: 08/29/17 08/29/17 06:59 18:59 Intake Total 240 Output Total 100 Balance 140 - Medications Medications: Current Medications Acetaminophen (Tylenol 325mg Tab) 650 mg PO Q6H PRN PRN Reason: Fever >100.4 F Apixaban (Eliquis) 2.5 mg PO BID [facility] PRN Reason: Protocol Last Admin: 08/29/17 10:19 Dose: 2.5 mg Colchicine (Colocrys) 0.6 mg PO DAILY [facility] Last Admin: 08/29/17 10:19 Dose: 0.6 mg Famotidine (Pepcid) 20 mg PO 2200 [facility] Last Admin: 08/28/17 21:58 Dose: 20 mg Furosemide (Lasix) 40 mg IVP DAILY [facility] Last Admin: 08/29/17 10:22 Dose: 40 mg Linezolid (Zyvox 600mg/300ml D5w) 600 mg in 300 mls @ 200 mls/hr IVPB Q12 [facility] PRN Reason: Protocol Last Admin: 08/29/17 13:08 Dose: 200 mls/hr Ciprofloxacin (Cipro 200mg/100ml D5w) 100 mls @ 67 mls/hr IVPB Q12 [facility] PRN Reason: Protocol Last Admin: 08/28/17 22:35 Dose: 67 mls/hr Insulin Detemir (Levemir) 10 unit SC [facility] Last Admin: 08/28/17 21:58 Dose: 10 unit Insulin Human Regular (Humulin R Med) 0 units SC [facility] PRN Reason: Protocol Last Admin: 08/29/17 13:00 Dose: Not Given Metoprolol Tartrate (Lopressor) 25 mg PO BID [facility] Last Admin: 08/29/17 10:21 Dose: 25 mg Montelukast Sodium (Singulair) 10 mg PO HS [facility] Last Admin: 08/28/17 21:58 Dose: 10 mg Mupirocin (Bactroban Ointment) 0 gm TOP BID [facility] Last Admin: 08/29/17 10:22 Dose: Not Given Prednisone (Prednisone Tab) 40 mg PO DAILY [facility] PRN Reason: Taper Stop: 09/06/17 11:29 - Labs Labs: 08/29/17 05:30 08/29/17 05:30 PT 29.2 SECONDS (9.4-12.5) H 08/28/17 10:15 INR 2.49 (0.93-1.08) H 08/28/17 10:15 APTT 45.3 Seconds (25.1-36.5) H 08/25/17 17:45 Attending/Attestation - Attestation I have personally seen and examined this patient.: Yes I have fully participated in the care of the patient.: Yes I have reviewed all pertinent clinical information, including history, physical exam and plan: Yes Notes (Text): I have seen and examined the patient at bedside. Agree with the above note. Briefly this is 82 year old female with history of atrial fibrillation on eliquis, hypothyroidism, chronic LLE cellulitis, COPD, pulmonary hypertension, chf (ef 48%) who came for evaluation of fever, cough and found to have multifocal pneumona and pleural effusion. She also has ARIEL. Procal 0.13. ID, Pulm, nephro on board. Continue gentle diuresis. Blood and urine culture negative. Leg Wound cultures are growing MRSA, VRE, psudomonas and corynebacterium. Patient is on cipro and zyvox. She has midline. Discussed with ID. Plan to send the patient tomorrow on both antibiotics x5 weeks. Patient denies any complaints. Patient is full code. Plan to dc patient tomorrow to [facility] rehab. Upon discharge patient will follow up with Dr Carr. Dr Slava Chavira
--- NOTE | 2017-08-29 13:21 | CP.PCM.PN ---
Subjective - Date & Time of Evaluation Date of Evaluation: 08/29/17 Time of Evaluation: 12:00 - Subjective Subjective: Infectious Disease Follow Up: August 29, 2017 82 yo female well known to me sent from [facility] for Altered Mental Status. Patient with known left lower leg gangrene. Patient with increasing coughing over the past 2 weeks. Poor appetite. No reports of fevers or chills. Chest X-ray here is negative. CT scan of chest showing right pleural effusion with subsegmental atelectasis in right lung upper and lower lobe. The patient cannot give a consistent story when spoken to. Right facial droop noted. The patient also appears more cachetic. Two of the more significant medical issues is her gangrene of the left leg with PVD and chronic non-healing ulcers and the persistent pneumonia findings on the right lung. The patient is denying most symptoms at this point. Noted Palliative care was asked to evaluate the patient, and the patient want to remain a Full Code. Gram negative rods on wound cultures. Culture growth showing multiple organisms that include VRE, Staph Aureus, and Pseudomonas. The Staph Aureus did show MRSA. Currently on Zyvox and Cipro for antibiotic treatment. Objective - Vital Signs/Intake and Output Vital Signs (last 24 hours): Temp Pulse Resp BP Pulse Ox 99.0 F 102 H 18 164/85 H 95 08/29/17 06:00 08/29/17 10:21 08/29/17 06:00 08/29/17 10:22 08/29/17 06:00 Intake and Output: 08/29/17 08/29/17 06:59 18:59 Intake Total 240 Output Total 100 Balance 140 - Medications Medications: Current Medications Acetaminophen (Tylenol 325mg Tab) 650 mg PO Q6H PRN PRN Reason: Fever >100.4 F Apixaban (Eliquis) 2.5 mg PO BID [facility] PRN Reason: Protocol Last Admin: 08/29/17 10:19 Dose: 2.5 mg Colchicine (Colocrys) 0.6 mg PO DAILY [facility] Last Admin: 08/29/17 10:19 Dose: 0.6 mg Famotidine (Pepcid) 20 mg PO 2200 [facility] Last Admin: 08/28/17 21:58 Dose: 20 mg Furosemide (Lasix) 40 mg IVP DAILY [facility] Last Admin: 08/29/17 10:22 Dose: 40 mg Azithromycin (Zithromax 500mg In Ns) 500 mg in 250 mls @ 167 mls/hr IVPB DAILY [facility] PRN Reason: Protocol Last Admin: 08/29/17 10:24 Dose: 167 mls/hr Linezolid (Zyvox 600mg/300ml D5w) 600 mg in 300 mls @ 200 mls/hr IVPB Q12 [facility] PRN Reason: Protocol Ciprofloxacin (Cipro 200mg/100ml D5w) 100 mls @ 67 mls/hr IVPB Q12 [facility] PRN Reason: Protocol Last Admin: 08/28/17 22:35 Dose: 67 mls/hr Insulin Detemir (Levemir) 10 unit SC HS [facility] Last Admin: 08/28/17 21:58 Dose: 10 unit Insulin Human Regular (Humulin R Med) 0 units SC ACHS [facility] PRN Reason: Protocol Last Admin: 08/29/17 08:17 Dose: Not Given Metoprolol Tartrate (Lopressor) 25 mg PO BID [facility] Last Admin: 08/29/17 10:21 Dose: 25 mg Montelukast Sodium (Singulair) 10 mg PO HS [facility] Last Admin: 08/28/17 21:58 Dose: 10 mg Mupirocin (Bactroban Ointment) 0 gm TOP BID [facility] Last Admin: 08/29/17 10:22 Dose: Not Given Prednisone (Prednisone Tab) 40 mg PO DAILY [facility] PRN Reason: Taper Stop: 09/06/17 11:29 - Labs Labs: 08/29/17 05:30 08/29/17 05:30 PT 29.2 SECONDS (9.4-12.5) H 08/28/17 10:15 INR 2.49 (0.93-1.08) H 08/28/17 10:15 APTT 45.3 Seconds (25.1-36.5) H 08/25/17 17:45 - Constitutional Appears: Cachectic, Chronically Ill - Head Exam Head Exam: ATRAUMATIC, NORMOCEPHALIC - Eye Exam Eye Exam: EOMI, PERRL Pupil Exam: NORMAL ACCOMODATION, PERRL - ENT Exam ENT Exam: Mucous Membranes Moist, Normal External Ear Exam, TM's Normal Bilaterally - Neck Exam Neck Exam: Full ROM, Normal Inspection - Respiratory Exam Respiratory Exam: Decreased Breath Sounds. absent: Rales, Rhonchi, Wheezes Additional comments: decreased in right upper and lower lobes. - Cardiovascular Exam Cardiovascular Exam: REGULAR RHYTHM, RRR, +S1, +S2 - GI/Abdominal Exam GI & Abdominal Exam: Soft, Normal Bowel Sounds. absent: Distended, Tenderness - Extremities Exam Extremities Exam: Full ROM, Normal Inspection - Neurological Exam Neurological Exam: Alert, Awake, CN II-XII Intact Additional comments: Patient has some confusion. - Psychiatric Exam Psychiatric exam: Normal Affect, Normal Mood - Skin Additional comments: left leg with dark discoloration and heavy growth of tinea. Recommendations on previous hospitalizations were for amputation of the left leg. Bruising and discoloration of the arms secondary to blood draws. Assessment and Plan - Assessment and Plan (Free Text) Assessment: 82 yo female with multiple medical issues presenting from [facility] for A[facility]. The patient appears more cachetic to me and appears to have a new right facial droop when seen. The patient still has the issues with the left leg. Amputation of the left leg remains the recommendation for care. In the past, she was able to tolerate meropenem after a desensitization protocol was followed. On Cipro and Zyvox as part of the patient's regimen. Cultures showing Pseudomonas, VRE, and Staph Aureus (MRSA). Stopped Azithromycin, Aztreonam, and Vancomycin. Continue on Cipro and Zyvox. Multiple growth in cultures of the leg wound. Supportive care. Thank you for allowing me to participate in the care of the patient, we will follow with you.
--- NOTE | 2017-08-29 14:25 | CP.PCM.PN ---
<Uli Jeffries - Last Filed: 08/29/17 14:22> Subjective - Date & Time of Evaluation Date of Evaluation: 08/29/17 Time of Evaluation: 14:22 - Subjective Subjective: Podiatry Progress note: Dr. Meek/Dr. Gilbert 82 year female pt seen at bedside today for left foot ulceration. Patient is seen with the daughter at bedside. Reports that she had PICC placed today. Reports that she maybe going home tomorrow. Patient reports that she is not feeling to well today. Reports of having mild pain to the left foot. Denies F/N/ V/C/SOB/CP/headache. Denies of any new pedal complains. Objective - Vital Signs/Intake and Output Vital Signs (last 24 hours): Temp Pulse Resp BP Pulse Ox 99.0 F 96 H 18 164/85 H 95 08/29/17 06:00 08/29/17 14:00 08/29/17 06:00 08/29/17 10:22 08/29/17 06:00 Intake and Output: 08/29/17 08/29/17 06:59 18:59 Intake Total 240 Output Total 100 Balance 140 - Medications Medications: Current Medications Acetaminophen (Tylenol 325mg Tab) 650 mg PO Q6H PRN PRN Reason: Fever >100.4 F Apixaban (Eliquis) 2.5 mg PO BID [facility] PRN Reason: Protocol Last Admin: 08/29/17 10:19 Dose: 2.5 mg Colchicine (Colocrys) 0.6 mg PO DAILY [facility] Last Admin: 08/29/17 10:19 Dose: 0.6 mg Famotidine (Pepcid) 20 mg PO 2200 [facility] Last Admin: 08/28/17 21:58 Dose: 20 mg Furosemide (Lasix) 40 mg IVP DAILY [facility] Last Admin: 08/29/17 10:22 Dose: 40 mg Linezolid (Zyvox 600mg/300ml D5w) 600 mg in 300 mls @ 200 mls/hr IVPB Q12 [facility] PRN Reason: Protocol Last Admin: 08/29/17 13:08 Dose: 200 mls/hr Ciprofloxacin (Cipro 200mg/100ml D5w) 100 mls @ 67 mls/hr IVPB Q12 [facility] PRN Reason: Protocol Last Admin: 08/28/17 22:35 Dose: 67 mls/hr Insulin Detemir (Levemir) 10 unit SC [facility] Last Admin: 08/28/17 21:58 Dose: 10 unit Insulin Human Regular (Humulin R Med) 0 units SC [facility] PRN Reason: Protocol Last Admin: 08/29/17 08:17 Dose: Not Given Metoprolol Tartrate (Lopressor) 25 mg PO BID [facility] Last Admin: 08/29/17 10:21 Dose: 25 mg Montelukast Sodium (Singulair) 10 mg PO [facility] Last Admin: 08/28/17 21:58 Dose: 10 mg Mupirocin (Bactroban Ointment) 0 gm TOP BID [facility] Last Admin: 08/29/17 10:22 Dose: Not Given Prednisone (Prednisone Tab) 40 mg PO DAILY [facility] PRN Reason: Taper Stop: 09/06/17 11:29 - Labs Labs: 08/29/17 05:30 08/29/17 05:30 PT 29.2 SECONDS (9.4-12.5) H 08/28/17 10:15 INR 2.49 (0.93-1.08) H 08/28/17 10:15 APTT 45.3 Seconds (25.1-36.5) H 08/25/17 17:45 - Constitutional Appears: Well, Non-toxic, No Acute Distress - Extremities Exam Additional comments: Left lower extremity focused exam: VASC- DP and PT pulses are faintly palpable, capillary refill < 5 sec to all digits, no pitting or non-pitting edema noted DERM- medial ankle wound with partial thickness measuring approximately 8 cm x 5 cm x .3 cm with granular base. Mild serous drainage noted to the wound. No tracking. Dior-wound skin is fully epithelialized with some hyper pigmented noted to periwound. No purulence noted, no probe to bone, no malodor, no erythema, no clinical suspicion of active infection at this time. NEURO- unable to obtain ORTHO- tenderness to palpation of ankle wound - Neurological Exam Neurological Exam: Alert, Awake, Oriented x3 - Psychiatric Exam Psychiatric exam: Normal Affect, Normal Mood Assessment and Plan - Assessment and Plan (Free Text) Assessment: 82 year old female with medial ankle ulceration secondary to chronic venous insufficiency Plan: Patient seen and evaluated Discussed plan with attending Dr. Gilbert Labs, vitals and charts reviewed - afebrile WBC @ 6.9 Wound cleaned with saline and dressing applied using xeroform, DSD Patient is stable from podiatry standpoint Will continue to monitor patient while in-house <Ge Gilbert - Last Filed: 08/29/17 14:45> Objective - Vital Signs/Intake and Output Vital Signs (last 24 hours): Temp Pulse Resp BP Pulse Ox 99.0 F 96 H 18 164/85 H 95 08/29/17 06:00 08/29/17 14:00 08/29/17 06:00 08/29/17 10:22 08/29/17 06:00 Intake and Output: 08/29/17 08/29/17 06:59 18:59 Intake Total 240 Output Total 100 Balance 140 - Medications Medications: Current Medications Acetaminophen (Tylenol 325mg Tab) 650 mg PO Q6H PRN PRN Reason: Fever >100.4 F Apixaban (Eliquis) 2.5 mg PO BID [facility] PRN Reason: Protocol Last Admin: 08/29/17 10:19 Dose: 2.5 mg Colchicine (Colocrys) 0.6 mg PO DAILY [facility] Last Admin: 08/29/17 10:19 Dose: 0.6 mg Famotidine (Pepcid) 20 mg PO 2200 [facility] Last Admin: 08/28/17 21:58 Dose: 20 mg Furosemide (Lasix) 40 mg IVP DAILY [facility] Last Admin: 08/29/17 10:22 Dose: 40 mg Linezolid (Zyvox 600mg/300ml D5w) 600 mg in 300 mls @ 200 mls/hr IVPB Q12 [facility] PRN Reason: Protocol Last Admin: 08/29/17 13:08 Dose: 200 mls/hr Ciprofloxacin (Cipro 200mg/100ml D5w) 100 mls @ 67 mls/hr IVPB Q12 [facility] PRN Reason: Protocol Last Admin: 08/28/17 22:35 Dose: 67 mls/hr Insulin Detemir (Levemir) 10 unit SC HS [facility] Last Admin: 08/28/17 21:58 Dose: 10 unit Insulin Human Regular (Humulin R Med) 0 units SC ACHS [facility] PRN Reason: Protocol Last Admin: 08/29/17 08:17 Dose: Not Given Metoprolol Tartrate (Lopressor) 25 mg PO BID [facility] Last Admin: 08/29/17 10:21 Dose: 25 mg Montelukast Sodium (Singulair) 10 mg PO HS [facility] Last Admin: 08/28/17 21:58 Dose: 10 mg Mupirocin (Bactroban Ointment) 0 gm TOP BID [facility] Last Admin: 08/29/17 10:22 Dose: Not Given Prednisone (Prednisone Tab) 40 mg PO DAILY [facility] PRN Reason: Taper Stop: 09/06/17 11:29 - Labs Labs: 08/29/17 05:30 08/29/17 05:30 PT 29.2 SECONDS (9.4-12.5) H 08/28/17 10:15 INR 2.49 (0.93-1.08) H 08/28/17 10:15 APTT 45.3 Seconds (25.1-36.5) H 08/25/17 17:45 Attending/Attestation - Attestation I have personally seen and examined this patient.: Yes I have fully participated in the care of the patient.: Yes I have reviewed all pertinent clinical information, including history, physical exam and plan: Yes
--- NOTE | 2017-08-29 16:58 | PN ---
DATE: 08/29/2017 SUBJECTIVE: The patient was seen and examined at bedside. She appears to be a little bit more somnolent; however, comfortable. Less communicative today. PHYSICAL EXAMINATION VITAL SIGNS: Heart rate 102, blood pressure 164/85, temperature 99, oxygen saturation 95% on 2 liters nasal cannula. ENT: Head and neck atraumatic. LUNGS: Clear breath sounds bilaterally. HEART: Regular rate and rhythm. S1, S2 distant. ABDOMEN: Soft, nontender, nondistended. MUSCULOSKELETAL: Trace bilateral pedal and ankle edema. EXTREMITIES: The patient was seen moving all extremities spontaneously. SKIN: Moist. PSYCH: The patient is somnolent. LABORATORY DATA: Sodium 139, potassium 4.6, chloride 107, carbon dioxide 21, BUN 60, creatinine 1.6, up from 1.4, glucose 144. AST 28, ALT 32, total bilirubin 1. Mycoplasma IgM is pending. Influenza negative. MEDICATIONS: Ciprofloxacin, Eliquis, colchicine, Pepcid, Lasix 40 mg IV daily, Levemir 10 units subcutaneously at bedtime, regular insulin sliding scale, metoprolol, Singulair, prednisone, Zyvox. ASSESSMENT AND PLAN: This is an 82-year-old lady with right ventricular failure and severe pulmonary hypertension, most likely due to combination of factors who presented with severe community-acquired pneumonia and was treated with broad-spectrum antibiotics. At the present time, we are following her BNP and procalcitonin. She is on diuretics to optimize respiratory status and right ventricular status. She is on low-dose steroids. Influenza serology is negative. In light of severe pulmonary hypertension/RV failure as well as comorbidities, discussion of advanced directives is reasonable. Monty Joshi MD LUIS FELIPE
[2017-08-29] MEDS: Ciprofloxacin 200mg/100ml D5W 100 ML IVPB SCH (21:21)
[2017-08-29] MEDS: Insulin Detemir 100 units/ml Vial (Levemir) SC SCH (21:22)
--- NOTE | 2017-08-29 21:57 | PN ---
DATE: 08/29/2017 SUBJECTIVE: The patient is seen lying in bed. She is more somnolent today. She is arousable. She denies any pain. She complains of some shortness of breath. She denies any nausea or vomiting. PHYSICAL EXAMINATION: GENERAL: Elderly lady lying in bed. VITAL SIGNS: Blood pressure 137/82, heart rate 86, respiratory rate 20, temperature 97.3. HEENT: Normocephalic, atraumatic. NECK: Supple, no JVD. LUNGS: Bilateral equal air entry, bilateral equal expansion, bilateral rhonchi. CARDIAC: S1 and S2, regular rate and rhythm, no murmur, no rub. ABDOMEN: Obese, distended, soft, nontender, bowel sounds present. EXTREMITIES: Dressing of the left foot. INTAKE AND OUTPUT: Not charted. LABORATORY DATA: WBC 6.9, hemoglobin 13, hematocrit 42, platelets 169. Sodium 139, potassium 4.6, chloride 107, CO2 of 21, BUN 60, creatinine 1.6, glucose 144. ASSESSMENT: 1. Acute kidney injury superimposed on chronic kidney disease stage III, prerenal azotemia. 2. Cellulitis, gangrene of the left foot. 3. Wound infection. 4. Chronic obstructive pulmonary disease exacerbation. 5. Questionable pneumonia. 6. Advanced dementia. 7. [id number] diabetes mellitus. 8. Hypertension. PLAN: 1. Hold diuretics if possible. 2. Push p.o. fluids. 3. Continue respiratory treatments. 4. Antibiotics as per ID recommendations. 5. Dose for creatinine clearance about 50 mL/minute. Carisa Wilcox MD
[2017-08-30 06:55] VITALS: O2SAT 99
[2017-08-30 07:11] LABS: EOS % 0.1 % (1.5-5.0); GRAN # 8.86 (1.4-6.5); GRAN % 88.8 % (50.0-68.0); HEMOGLOBIN 13.1 g/dL (12.0-16.0); LYMPH # 0.3 (1.2-3.4); LYMPH % 3.4 % (22.0-35.0); MEAN CELL VOLUME 86.6 fl (80.0-105.0); MEAN CORPUSCULAR HEMOGLOBIN 26.5 pg (25.0-35.0); MEAN CORPUSCULAR HGB CONC 30.6 g/dl (31.0-37.0); MONO # 0.8 (0.1-0.6); MONO % 7.7 % (1.0-6.0); PLATELET COUNT 202 10^3/uL (120.0-450.0); RBC 4.94 10^6/uL (3.5-6.1); RED CELL DISTRIBUTION WIDTH 20.8 % (11.5-14.5)
[2017-08-30] MEDS: Insulin Reg-MEDIUM-Coverage SC SCH ×2 (07:37→11:52)
--- NOTE | 2017-08-30 07:50 | CP.PCM.DIS ---
<Braxton Jeffries - Last Filed: 08/30/17 10:34> Provider - Provider Date of Admission: 08/25/17 21:05 Attending physician: Slava Chavira MD Primary care physician: Sonny Sparks MD Time Spent in preparation of Discharge (in minutes): 45 Diagnosis - Discharge Diagnosis (1) Altered mental status Status: Resolved Priority: Medium (2) Pneumonia Status: Acute Priority: Medium (3) Pulmonary hypertension Status: Chronic Priority: High (4) Acute kidney failure Status: Chronic Priority: Medium (5) History of COPD Status: Chronic Priority: Medium (6) History of hypothyroidism Status: Chronic Priority: Medium (7) History of diabetes mellitus Status: Chronic Priority: Medium Hospital Course - Lab Results Lab Results: Micro Results 08/27/17 10:45 Leg - Left Gram Stain - Final 08/27/17 10:45 Leg - Left Wound Culture - Final Methicillin Resistant S Aureus 08/26/17 08:28 Ankle - Left Gram Stain - Final 08/26/17 08:28 Ankle - Left Wound Culture - Final Pseudomonas Aeruginosa Coagulase Neg Staphylococcus Methicillin Resistant S Aureus 08/26/17 08:28 Foot - Left Gram Stain - Final 08/26/17 08:28 Foot - Left Wound Culture - Final Corynebacterium Species 08/26/17 08:28 Thigh - Left Gram Stain - Final 08/26/17 08:28 Thigh - Left Wound Culture - Final Vancomycin Res E.faecalis Pseudomonas Aeruginosa 08/26/17 00:29 Urine Urine Culture - Final No Growth (<1,000 CFU/ML) Most Recent Lab Values WBC 10.0 10^3/ul (4.5-11.0) D 08/30/17 06:00 RBC 4.94 10^6/uL (3.5-6.1) 08/30/17 06:00 Hgb 13.1 g/dL (12.0-16.0) 08/30/17 06:00 Hct 42.8 % (36.0-48.0) 08/30/17 06:00 MCV 86.6 fl (80.0-105.0) 08/30/17 06:00 MCH 26.5 pg (25.0-35.0) 08/30/17 06:00 MCHC 30.6 g/dl (31.0-37.0) L 08/30/17 06:00 RDW 20.8 % (11.5-14.5) H 08/30/17 06:00 Plt Count 202 10^3/uL (120.0-450.0) 08/30/17 06:00 MPV 11.4 fl (7.0-11.0) H 08/29/17 05:30 Gran % 88.8 % (50.0-68.0) H 08/30/17 06:00 Lymph % (Auto) 3.4 % (22.0-35.0) L 08/30/17 06:00 [place] % (Auto) 7.7 % (1.0-6.0) H 08/30/17 06:00 Eos % (Auto) 0.1 % (1.5-5.0) L 08/30/17 06:00 Baso % (Auto) 0.0 % (0.0-3.0) 08/30/17 06:00 Gran # 8.86 (1.4-6.5) H 08/30/17 06:00 Lymph # (Auto) 0.3 (1.2-3.4) L 08/30/17 06:00 [place] # (Auto) 0.8 (0.1-0.6) H 08/30/17 06:00 Eos # (Auto) 0.0 (0.0-0.7) 08/30/17 06:00 Baso # (Auto) 0.00 K/mm3 (0.0-2.0) 08/30/17 06:00 Neutrophils % (Manual) 89 % (50.0-70.0) H 08/26/17 05:40 Lymphocytes % (Manual) 8 % (22.0-35.0) L 08/26/17 05:40 Monocytes % (Manual) 3 % (1.0-6.0) 08/26/17 05:40 Large Platelets Present 08/26/17 05:40 PT 29.2 SECONDS (9.4-12.5) H 08/28/17 10:15 INR 2.49 (0.93-1.08) H 08/28/17 10:15 APTT 45.3 Seconds (25.1-36.5) H 08/25/17 17:45 pO2 224 mm/Hg (30-55) H 08/25/17 17:45 VBG pH 7.34 (7.32-7.43) 08/25/17 17:45 VBG pCO2 45.0 (40-60) 08/25/17 17:45 VBG HCO3 24.3 mmol/l (21-28) 08/25/17 17:45 VBG Total CO2 25.7 mmol.L (22-28) 08/25/17 17:45 VBG O2 Sat (Calc) 100.2 % (40-65) H 08/25/17 17:45 VBG Base Excess -1.7 mmol/L (0.0-2.0) L 08/25/17 17:45 VBG Potassium 5.2 mmol/L (3.6-5.2) 08/25/17 17:45 Sodium 140.0 mmol/L (132-148) 08/25/17 17:45 Chloride 113.0 mmol/L (98-107) H 08/25/17 17:45 Glucose 233 mg/dl (65-105) H 08/25/17 17:45 Lactate 1.9 mmol/L (0.7-2.1) 08/25/17 17:45 FiO2 21.0 % 08/25/17 17:45 Sodium 139 mmol/L (132-148) 08/29/17 05:30 Potassium 4.6 mmol/L (3.6-5.0) 08/29/17 05:30 Chloride 107 mmol/L (98-107) 08/29/17 05:30 Carbon Dioxide 21 mmol/L (21-33) 08/29/17 05:30 Anion Gap 16 (10-20) 08/29/17 05:30 BUN 60 mg/dL (7-21) H 08/29/17 05:30 Creatinine 1.6 mg/dl (0.7-1.2) H 08/29/17 05:30 Est GFR ( Amer) 37 08/29/17 05:30 Est GFR (Non-Af Amer) 31 08/29/17 05:30 POC Glucose (mg/dL) 121 mg/dL (65-110) H 08/30/17 07:22 Random Glucose 144 mg/dL (70-110) H 08/29/17 05:30 Calcium 8.5 mg/dL (8.4-10.5) 08/29/17 05:30 Magnesium 2.7 mg/dL (1.7-2.2) H 08/25/17 17:45 Total Bilirubin 1.0 mg/dL (0.2-1.3) 08/29/17 05:30 AST 28 U/L (14-36) 08/29/17 05:30 ALT 32 U/L (7-56) 08/29/17 05:30 Alkaline Phosphatase 94 U/L (38-126) 08/29/17 05:30 Lactate Dehydrogenase 496 U/L (333-699) 08/25/17 17:45 Total Creatine Kinase < 20 U/L (35-230) L 08/25/17 17:45 Troponin I < 0.01 ng/mL 08/25/17 17:45 NT-Pro-B Natriuret Pep 07589 pg/mL (0-450) H 08/29/17 05:30 Total Protein 6.7 g/dL (5.8-8.3) 08/29/17 05:30 Albumin 3.1 g/dL (3.0-4.8) 08/29/17 05:30 Globulin 3.6 gm/dL 08/29/17 05:30 Albumin/Globulin Ratio 0.9 (1.1-1.8) L 08/29/17 05:30 Procalcitonin 0.13 NG/ML (0.19-0.49) L 08/25/17 22:18 Venous Blood Potassium 5.2 mmol/L (3.6-5.2) 08/25/17 17:45 Urine Color Yellow (YELLOW) 08/26/17 00:29 Urine Appearance Clear (CLEAR) 08/26/17 00:29 Urine pH 5.5 (4.7-8.0) 08/26/17 00:29 Ur Specific [place] >= 1.030 (1.005-1.035) 08/26/17 00:29 Urine Protein 30 mg/dL (<30 mg/dL) H 08/26/17 00:29 Urine Glucose (UA) Negative mg/dL (NEGATIVE) 08/26/17 00:29 Urine Ketones Trace mg/dL (NEGATIVE) H 08/26/17 00:29 Urine Blood Negative (NEGATIVE) 08/26/17 00:29 Urine Nitrate Negative (NEGATIVE) 08/26/17 00:29 Urine Bilirubin Negative (NEGATIVE) 08/26/17 00:29 Urine Urobilinogen 0.2 E.U./dL (<1 E.U./dL) 08/26/17 00:29 Ur Leukocyte Esterase Negative Matilda/uL (NEGATIVE) 08/26/17 00:29 Urine RBC 0 - 2 /hpf (0-2) 08/26/17 00:29 Urine WBC 0 - 2 /hpf (0-6) 08/26/17 00:29 Ur Epithelial Cells 0 - 2 /hpf (0-5) 08/26/17 00:29 Hyaline Casts 0 - 2 /hpf 08/26/17 00:29 Influenza Typ A,B (EIA) Negative for flu a/b (NEGATIVE) 08/28/17 10:35 Mycoplasma pneumon IgG >5.00 (<=0.90) H 08/25/17 22:18 Mycoplasma pneumon IgM 992 U/mL (<770) H 08/25/17 22:18 - Hospital Course Hospital Course: Patient is a 82 year old female PMHx of diabetes, A-fib (On Eliquis), Hypothyroidism, chronic left leg swelling/cellulitis, and COPD who was brought from [facility] for evaluation and treatment of altered mental status. With the use of physical examinations, lab work, and imaging the patient was diagnosed with and treated for pneumonia, chronic lower extremity ulcers, acute kidney injury along with the patients chronic medical conditions. During their hospital stay the patient was seen by infectious disease (Dr. Alvares), nephrology (Dr. becker), pulmonology (Dr. Dawkins), and palliative care (Radha Farr) whose recommendations were both appreciated and utilized in the care for this patient. During their hospital stay the patient underwent a head CT x 2, chest CT, and chest xray which were reviewed, appreciated, and utilized in the management of the patients clinical course. Head CT on 08/25/17 showed no definitive acute intracranial hemorrhage or acute territorial type infarct, periventricular foci of hypodensity (likely representing small vessel ischemic disease in a patient this age), moderate stable atrophy, and effusions within the left mastoid air cells. The head CT on 08/27/17 showed no acute hemorrhage. The chest CT showed moderate right pleural effusion and trace left pleural effusion , no pneumothorax, subsegmental atelectasis right upper lobe and right lower lobe, no acute infiltrate, and cardiomegaly with pacemaker. Patient was treated with tylenol, elquis,cipro, linezolid, colchicine, pepcid, lasix, levemir, humulin, prednisone amongst other empiric/therapeutic medications. At this time the patient is medically stable for discharge to [facility]. Patient understands and appreciates discharge plan. Patient instructed to follow up with primary care physicians and referrals within three to five days from discharge. Furthermore, the patient is instructed to take medications as prescribed and to return to emergency room for evaluation of intractable headache, fever, chills, dizziness, chest pain, shortness of breath, abdominal pain, nausea, vomiting, diarrhea, constipation, and urinary symptoms. This is a brief summary of the patients hospital course. Please see patient chart for full details. Discharge Exam - Head Exam Head Exam: NORMAL INSPECTION - Additional Findings Additional findings: - Constitutional Appears: No Acute Distress - Head Exam Head Exam: NORMAL INSPECTION - Eye Exam Eye Exam: Normal appearance - ENT Exam ENT Exam: Normal Exam - Neck Exam Neck Exam: Normal Inspection - Respiratory Exam Respiratory Exam: Clear to Ausculation Bilateral. absent: Rales, Rhonchi, Wheezes - Cardiovascular Exam Cardiovascular Exam: RRR, +S1, +S2. absent: Gallop, Rubs, Murmur - GI/Abdominal Exam GI & Abdominal Exam: Soft. absent: Distended, Guarding, Tenderness, Rebound - Extremities Exam Additional comments: LLE ulcer - Neurological Exam Neurological Exam: Alert, Awake, Oriented x3 Discharge Plan - Discharge Medications Prescriptions: Ciprofloxacin Lactate/D5w [Ciprofloxacn-D5w 200 mg/100 ml] 200 mg IV Q12H 35 Days ml Furosemide [Lasix] 40 mg IVP DAILY 7 Days Linezolid 600 mg in D5W 300 ml [Zyvox IV] 600 mg IV Q12H 35 Days bag Methylprednisolone [Medrol Dose Pack (21 tabs)] See Taper PO ASDIR #21 mg - Follow Up Plan Condition: FAIR Disposition: NURSING FACILITY MEDICAID CERT Patient education suggested?: Yes Instructions: Pneumonia in Adults, Chronic Obstructive Pulmonary Disease (COPD) , Including Emphysema, Heart Failure, Adult (DC) Additional Instructions: Patient Instructions: Take medications as prescribed. Follow up with PMD and referrals within three to five days from discharge. Return to the emergency room for evaluation of intractable headache, fever, chills, dizziness, chest pain, shortness of breath, abdominal pain, nausea, vomiting, diarrhea, constipation, and urinary symptoms. Referrals: Ge Gilbert DPM [Staff Provider] - Cesar Alvares MD [Staff Provider] - Carisa Wilcox MD [Staff Provider] - Monty Joshi MD [Staff Provider] - Sonny Sparks MD [Primary Care Provider] - <Don Davey - Last Filed: 08/30/17 16:39> Provider - Provider Date of Admission: 08/25/17 21:05 Attending physician: Slava Chavira MD Primary care physician: Sonny Sparks MD Hospital Course - Lab Results Lab Results: Micro Results 08/27/17 10:45 Leg - Left Gram Stain - Final 08/27/17 10:45 Leg - Left Wound Culture - Final Methicillin Resistant S Aureus 08/26/17 08:28 Ankle - Left Gram Stain - Final 08/26/17 08:28 Ankle - Left Wound Culture - Final Pseudomonas Aeruginosa Coagulase Neg Staphylococcus Methicillin Resistant S Aureus 08/26/17 08:28 Foot - Left Gram Stain - Final 08/26/17 08:28 Foot - Left Wound Culture - Final Corynebacterium Species 08/26/17 08:28 Thigh - Left Gram Stain - Final 08/26/17 08:28 Thigh - Left Wound Culture - Final Vancomycin Res E.faecalis Pseudomonas Aeruginosa 08/26/17 00:29 Urine Urine Culture - Final No Growth (<1,000 CFU/ML) Most Recent Lab Values WBC 10.0 10^3/ul (4.5-11.0) D 08/30/17 06:00 RBC 4.94 10^6/uL (3.5-6.1) 08/30/17 06:00 Hgb 13.1 g/dL (12.0-16.0) 08/30/17 06:00 Hct 42.8 % (36.0-48.0) 08/30/17 06:00 MCV 86.6 fl (80.0-105.0) 08/30/17 06:00 MCH 26.5 pg (25.0-35.0) 08/30/17 06:00 MCHC 30.6 g/dl (31.0-37.0) L 08/30/17 06:00 RDW 20.8 % (11.5-14.5) H 08/30/17 06:00 Plt Count 202 10^3/uL (120.0-450.0) 08/30/17 06:00 MPV 11.4 fl (7.0-11.0) H 08/29/17 05:30 Gran % 88.8 % (50.0-68.0) H 08/30/17 06:00 Lymph % (Auto) 3.4 % (22.0-35.0) L 08/30/17 06:00 [place] % (Auto) 7.7 % (1.0-6.0) H 08/30/17 06:00 Eos % (Auto) 0.1 % (1.5-5.0) L 08/30/17 06:00 Baso % (Auto) 0.0 % (0.0-3.0) 08/30/17 06:00 Gran # 8.86 (1.4-6.5) H 08/30/17 06:00 Lymph # (Auto) 0.3 (1.2-3.4) L 08/30/17 06:00 [place] # (Auto) 0.8 (0.1-0.6) H 08/30/17 06:00 Eos # (Auto) 0.0 (0.0-0.7) 08/30/17 06:00 Baso # (Auto) 0.00 K/mm3 (0.0-2.0) 08/30/17 06:00 Neutrophils % (Manual) 93 % (50.0-70.0) H 08/30/17 06:00 Lymphocytes % (Manual) 5 % (22.0-35.0) L 08/30/17 06:00 Monocytes % (Manual) 2 % (1.0-6.0) 08/30/17 06:00 Platelet Evaluation Normal (NORMAL) 08/30/17 06:00 Large Platelets Present 08/26/17 05:40 Ovalocytes 1+ 08/30/17 06:00 PT 29.2 SECONDS (9.4-12.5) H 08/28/17 10:15 INR 2.49 (0.93-1.08) H 08/28/17 10:15 APTT 45.3 Seconds (25.1-36.5) H 08/25/17 17:45 pO2 224 mm/Hg (30-55) H 08/25/17 17:45 VBG pH 7.34 (7.32-7.43) 08/25/17 17:45 VBG pCO2 45.0 (40-60) 08/25/17 17:45 VBG HCO3 24.3 mmol/l (21-28) 08/25/17 17:45 VBG Total CO2 25.7 mmol.L (22-28) 08/25/17 17:45 VBG O2 Sat (Calc) 100.2 % (40-65) H 08/25/17 17:45 VBG Base Excess -1.7 mmol/L (0.0-2.0) L 08/25/17 17:45 VBG Potassium 5.2 mmol/L (3.6-5.2) 08/25/17 17:45 Sodium 140.0 mmol/L (132-148) 08/25/17 17:45 Chloride 113.0 mmol/L (98-107) H 08/25/17 17:45 Glucose 233 mg/dl (65-105) H 08/25/17 17:45 Lactate 1.9 mmol/L (0.7-2.1) 08/25/17 17:45 FiO2 21.0 % 08/25/17 17:45 Sodium 140 mmol/L (132-148) 08/30/17 06:00 Potassium 4.1 mmol/L (3.6-5.0) 08/30/17 06:00 Chloride 105 mmol/L (98-107) 08/30/17 06:00 Carbon Dioxide 21 mmol/L (21-33) 08/30/17 06:00 Anion Gap 19 (10-20) 08/30/17 06:00 BUN 65 mg/dL (7-21) H 08/30/17 06:00 Creatinine 1.8 mg/dl (0.7-1.2) H 08/30/17 06:00 Est GFR ( Amer) 32 08/30/17 06:00 Est GFR (Non-Af Amer) 27 04/28/18 06:00 POC Glucose (mg/dL) 161 mg/dL (65-110) H 08/30/17 10:59 Random Glucose 110 mg/dL (70-110) 08/30/17 06:00 Calcium 8.3 mg/dL (8.4-10.5) L 08/30/17 06:00 Magnesium 2.7 mg/dL (1.7-2.2) H 08/25/17 17:45 Total Bilirubin 1.2 mg/dL (0.2-1.3) 08/30/17 06:00 AST 34 U/L (14-36) 08/30/17 06:00 ALT 29 U/L (7-56) 08/30/17 06:00 Alkaline Phosphatase 89 U/L (38-126) 08/30/17 06:00 Lactate Dehydrogenase 496 U/L (333-699) 08/25/17 17:45 Total Creatine Kinase < 20 U/L (35-230) L 08/25/17 17:45 Troponin I < 0.01 ng/mL 08/25/17 17:45 NT-Pro-B Natriuret Pep 18270 pg/mL (0-450) H 08/29/17 05:30 Total Protein 6.8 g/dL (5.8-8.3) 08/30/17 06:00 Albumin 3.1 g/dL (3.0-4.8) 08/30/17 06:00 Globulin 3.7 gm/dL 08/30/17 06:00 Albumin/Globulin Ratio 0.8 (1.1-1.8) L 08/30/17 06:00 Procalcitonin 0.13 NG/ML (0.19-0.49) L 08/25/17 22:18 Venous Blood Potassium 5.2 mmol/L (3.6-5.2) 08/25/17 17:45 Urine Color Yellow (YELLOW) 08/26/17 00:29 Urine Appearance Clear (CLEAR) 08/26/17 00:29 Urine pH 5.5 (4.7-8.0) 08/26/17 00:29 Ur Specific [place] >= 1.030 (1.005-1.035) 08/26/17 00:29 Urine Protein 30 mg/dL (<30 mg/dL) H 08/26/17 00:29 Urine Glucose (UA) Negative mg/dL (NEGATIVE) 08/26/17 00:29 Urine Ketones Trace mg/dL (NEGATIVE) H 08/26/17 00:29 Urine Blood Negative (NEGATIVE) 08/26/17 00:29 Urine Nitrate Negative (NEGATIVE) 08/26/17 00:29 Urine Bilirubin Negative (NEGATIVE) 08/26/17 00:29 Urine Urobilinogen 0.2 E.U./dL (<1 E.U./dL) 08/26/17 00:29 Ur Leukocyte Esterase Negative Matilda/uL (NEGATIVE) 08/26/17 00:29 Urine RBC 0 - 2 /hpf (0-2) 08/26/17 00:29 Urine WBC 0 - 2 /hpf (0-6) 08/26/17 00:29 Ur Epithelial Cells 0 - 2 /hpf (0-5) 08/26/17 00:29 Hyaline Casts 0 - 2 /hpf 08/26/17 00:29 Influenza Typ A,B (EIA) Negative for flu a/b (NEGATIVE) 08/28/17 10:35 Mycoplasma pneumon IgG >5.00 (<=0.90) H 08/25/17 22:18 Mycoplasma pneumon IgM 992 U/mL (<770) H 08/25/17 22:18 Attending/Attestation - Attestation I have personally seen and examined this patient.: Yes I have fully participated in the care of the patient.: Yes I have reviewed all pertinent clinical information, including history, physical exam and plan: Yes Notes (Text): 08/30/17 16:37 Attending note; Patient seen and examined with resident. Patient is a 82 year old female with history of atrial fibrillation on eliquis, hypothyroidism, chronic LLE cellulitis, COPD, pulmonary hypertension is admitted for multifocal pneumona and pleural effusion. Currently on IV ciprofloxacin and Zyvox. Patient will complete the course of antibiotics . midline in place. Patient is afebrile and nontoxic. Blood and urine culture negative. Leg Wound cultures are growing MRSA, VRE, psudomonas and corynebacterium. Patient is on cipro and zyvox. Patient is full code. [facility] Upon discharge patient will follow up with Dr Carr.
[2017-08-30 08:04] LABS: LYMPHOCYTE 5 % (22.0-35.0); NEUTROPHIL 93 % (50.0-70.0)
[2017-08-30 08:06] LABS: MONOCYTE 2 % (1.0-6.0)
[2017-08-30 08:07] LABS: OVALOCYTES 1+; PLATELET ESTIMATE NORMAL (NORMAL)
--- NOTE | 2017-08-30 08:11 | CP.PCM.PN ---
Subjective - Date & Time of Evaluation Date of Evaluation: 08/30/17 Time of Evaluation: 08:09 - Subjective Subjective: Podiatry Progress note: Dr. Meek/Dr. Gilbert 82 year female pt seen at bedside today for left foot ulceration, with attending Dr. Gilbert. Reports that she had PICC placed yesterday. Reports that she maybe going home today. Patient reports that she is not feeling to well today. Reports of having mild pain to the left foot. Denies F/N/V/C/SOB/CP/ headache. Denies of any new pedal complains. Objective - Vital Signs/Intake and Output Vital Signs (last 24 hours): Temp Pulse Resp BP Pulse Ox 97.7 F 96 H 20 132/84 99 08/30/17 06:00 08/30/17 06:00 08/30/17 06:00 08/30/17 06:00 08/30/17 06:00 - Medications Medications: Current Medications Acetaminophen (Tylenol 325mg Tab) 650 mg PO Q6H PRN PRN Reason: Fever >100.4 F Apixaban (Eliquis) 2.5 mg PO BID [facility] PRN Reason: Protocol Last Admin: 08/29/17 18:18 Dose: 2.5 mg Colchicine (Colocrys) 0.6 mg PO DAILY [facility] Last Admin: 08/29/17 10:19 Dose: 0.6 mg Famotidine (Pepcid) 20 mg PO 2200 KEO Last Admin: 08/29/17 21:22 Dose: 20 mg Furosemide (Lasix) 40 mg IVP DAILY [facility] Last Admin: 08/29/17 10:22 Dose: 40 mg Linezolid (Zyvox 600mg/300ml D5w) 600 mg in 300 mls @ 200 mls/hr IVPB Q12 KEO PRN Reason: Protocol Last Admin: 08/29/17 21:21 Dose: 200 mls/hr Ciprofloxacin (Cipro 200mg/100ml D5w) 100 mls @ 67 mls/hr IVPB Q12 KEO PRN Reason: Protocol Last Admin: 08/29/17 21:21 Dose: 67 mls/hr Insulin Detemir (Levemir) 10 unit SC HS [facility] Last Admin: 08/29/17 21:22 Dose: 10 unit Insulin Human Regular (Humulin R Med) 0 units SC ACHS KEO PRN Reason: Protocol Last Admin: 08/30/17 07:37 Dose: Not Given Metoprolol Tartrate (Lopressor) 25 mg PO BID [facility] Last Admin: 08/29/17 18:18 Dose: 25 mg Montelukast Sodium (Singulair) 10 mg PO HS [facility] Last Admin: 08/29/17 21:22 Dose: 10 mg Mupirocin (Bactroban Ointment) 0 gm TOP BID [facility] Last Admin: 08/29/17 18:14 Dose: Not Given Prednisone (Prednisone Tab) 40 mg PO DAILY [facility] PRN Reason: Taper Stop: 09/06/17 11:29 - Labs Labs: 08/30/17 06:00 08/29/17 05:30 PT 29.2 SECONDS (9.4-12.5) H 08/28/17 10:15 INR 2.49 (0.93-1.08) H 08/28/17 10:15 APTT 45.3 Seconds (25.1-36.5) H 08/25/17 17:45 - Constitutional Appears: Well, Non-toxic, No Acute Distress - Extremities Exam Additional comments: Left lower extremity focused exam: VASC- DP and PT pulses are faintly palpable, capillary refill < 5 sec to all digits, no pitting or non-pitting edema noted DERM- medial ankle wound with partial thickness measuring approximately 8 cm x 5 cm x .3 cm with granular base. Mild serous drainage noted to the wound. No tracking. Dior-wound skin is fully epithelialized with some hyper pigmented noted to periwound. No purulence noted, no probe to bone, no malodor, no erythema, no clinical suspicion of active infection at this time. NEURO- unable to obtain ORTHO- tenderness to palpation of ankle wound - Neurological Exam Neurological Exam: Alert, Awake, Oriented x3 - Psychiatric Exam Psychiatric exam: Normal Affect, Normal Mood Assessment and Plan - Assessment and Plan (Free Text) Assessment: 82 year old female with medial ankle ulceration secondary to chronic venous insufficiency Plan: Patient seen and evaluated seen at bedside with attending Dr. Gilbert Labs, vitals and charts reviewed - afebrile WBC @ 10.0 Wound cleaned with saline and dressing applied using xeroform,ABD, DSD Patient is stable from podiatry standpoint Will continue to monitor patient while in-house
[2017-08-30 08:12] LABS: ALB/GLOB RATIO 0.8 (1.1-1.8); ALBUMIN 3.1 g/dL (3.0-4.8); CALCIUM 8.3 mg/dL (8.4-10.5)
[2017-08-30] MEDS: Linezolid 600 mg in D5W 300 ml 600 MG/300 ML BAG IVPB SCH (09:49)
[2017-08-30] MEDS: Ciprofloxacin 200mg/100ml D5W 100 ML IVPB SCH (11:48)
[2017-08-30] MEDS ORDERED: Milrinone 20mg/100ml D5W 100 ML IV PRN (12:45)
[2017-08-30 12:47] VITALS: BP 139/95; PULSE 95; RESP 18; TEMP 97.3
--- NOTE | 2017-08-30 13:41 | PN ---
DATE: 08/30/2017 SUBJECTIVE: The patient is seen lying in bed. OBJECTIVE: GENERAL: She is awake. She is alert. She is confused, but she does not appear to be in any kind of physical distress. VITAL SIGNS: Blood pressure 139/95, heart rate 95, respiratory rate 18, temperature 97.3. HEENT: Normocephalic, atraumatic, positive pallor. NECK: Supple. No JVD. LUNGS: Bilateral rhonchi, distant breath sounds, prolonged expiration. CARDIAC: S1, S2. Regular rate and rhythm. No murmur, no rub. ABDOMEN: Obese, distended, soft, nontender. Bowel sounds present. EXTREMITIES: Chronic stasis changes, dressing of the left foot. INTAKE AND OUTPUT: 240/100. LABORATORY DATA WBC 10, hemoglobin 13, hematocrit 43, platelets 202. Sodium 140, potassium 4.1, chloride 101, CO2 21. BUN 65, creatinine 1.8, glucose 110. Calcium 8.3, AST 34, ALT 29, albumin 3.1. Cultures, MRSA, left leg; VRE, left thigh; Pseudomonas MRSA, left ankle. CURRENT MEDICATIONS: Bactroban, ciprofloxacin, Colcrys, Eliquis, Lasix 40 IV daily given today, Levemir, Lopressor, Pepcid, prednisone, Singulair, Tylenol, Zyvox. ASSESSMENT: 1. Acute kidney injury superimposed on chronic kidney disease stage III. 2. Multiple wound infections 3. Altered mental status/dementia. 4. Atypical pneumonia. 5. Chronic obstructive pulmonary disease. 6. Pulmonary hypertension. 7. Axl-hclvjrz-wlapmbepg diabetes mellitus. 8. History of hypertension. PLAN: 1. Creatinine is somewhat higher, this is secondary to poor p.o. intake, prerenal azotemia. 2. Perhaps some element of ATN in the setting of infection. 3. History of COPD/pulmonary hypertension, continue respiratory treatments. 4. Avoid overdiuresis. 5. Push p.o. fluids Carisa Wilcox MD
== END 2017-08-30 14:59 | DRG 190 ==
LOC: ED 16:52 → ERH 21:05 → 2RNO 08-26 04:06
PROVIDERS: ADMIT Internal Medicine; ATTEND Hospitalist
PROC: 05HY33Z Insertion of Infusion Device into Upper Vein, Percutaneous Approach (ICD-10-PCS; principal; 2017-08-25)
DX: J44.0 Chronic obstructive pulmonary disease with (acute) lower respiratory infection (principal); J18.9 Pneumonia, unspecified organism; J98.11 Atelectasis; E11.52 Type 2 diabetes mellitus with diabetic peripheral angiopathy with gangrene; I13.0 Hypertensive heart and chronic kidney disease with heart failure and stage 1 through stage 4 chronic kidney disease, or unspecified chronic kidney disease; L03.116 Cellulitis of left lower limb; L97.309 Non-pressure chronic ulcer of unspecified ankle with unspecified severity; N17.9 Acute kidney failure, unspecified; R64 Cachexia; J44.1 Chronic obstructive pulmonary disease with (acute) exacerbation; E03.9 Hypothyroidism, unspecified; E11.22 Type 2 diabetes mellitus with diabetic chronic kidney disease; E11.621 Type 2 diabetes mellitus with foot ulcer; E11.622 Type 2 diabetes mellitus with other skin ulcer; F03.90 Unspecified dementia, unspecified severity, without behavioral disturbance, psychotic disturbance, mood disturbance, and anxiety; I27.29 Other secondary pulmonary hypertension; I48.0 Paroxysmal atrial fibrillation; I48.2 Chronic atrial fibrillation; I50.810 Right heart failure, unspecified; I87.2 Venous insufficiency (chronic) (peripheral); I83.029 Varicose veins of left lower extremity with ulcer of unspecified site; K21.9 Gastro-esophageal reflux disease without esophagitis; K44.9 Diaphragmatic hernia without obstruction or gangrene; L97.529 Non-pressure chronic ulcer of other part of left foot with unspecified severity; N18.3 Chronic kidney disease, stage 3 (moderate); N31.9 Neuromuscular dysfunction of bladder, unspecified; R29.810 Facial weakness; Z51.5 Encounter for palliative care; Z79.01 Long term (current) use of anticoagulants; Z79.4 Long term (current) use of insulin; Z88.0 Allergy status to penicillin; Z95.0 Presence of cardiac pacemaker; Z99.3 Dependence on wheelchair

== ENCOUNTER 2017-09-02 14:47 | Inpatient (IN) | payer MEDICARE, MEDICAID ==
--- NOTE | 2017-09-02 16:13 | RAD ---
HISTORY: r/o infiltrate COMPARISON: 08/26/2017 FINDINGS: LUNGS: There is a chronic diffuse infiltrate in the right lung that is unchanged. The focal infiltrate in the upper lobe has improved PLEURA: No significant pleural effusion identified, no pneumothorax apparent. CARDIOVASCULAR: Normal. OSSEOUS STRUCTURES: No significant abnormalities. VISUALIZED UPPER ABDOMEN: Normal. OTHER FINDINGS: None. IMPRESSION: There is a chronic diffuse infiltrate in the right lung that is unchanged. The focal infiltrate in the upper lobe has improved
[2017-09-02 16:56] LABS: BASO # 0.01 K/mm3 (0.0-2.0); BASO % 0.1 % (0.0-3.0); EOS % 0.1 % (1.5-5.0); GRAN # 11.71 (1.4-6.5); GRAN % 96.5 % (50.0-68.0); HEMOGLOBIN 13.4 g/dL (12.0-16.0); LYMPH # 0.4 (1.2-3.4); LYMPH % 2.9 % (22.0-35.0); MEAN CELL VOLUME 88.5 fl (80.0-105.0); MEAN CORPUSCULAR HEMOGLOBIN 27.1 pg (25.0-35.0); MEAN CORPUSCULAR HGB CONC 30.7 g/dl (31.0-37.0); MONO # 0.1 (0.1-0.6); MONO % 0.4 % (1.0-6.0); PLATELET COUNT 116 10^3/uL (120.0-450.0); RBC 4.94 10^6/uL (3.5-6.1); RED CELL DISTRIBUTION WIDTH 21.1 % (11.5-14.5); WHITE BLOOD COUNT 12.1 10^3/ul (4.5-11.0)
[2017-09-02 16:57] LABS: ALB/GLOB RATIO 0.9 (1.1-1.8); ALBUMIN 2.9 g/dL (3.0-4.8); CALCIUM 8.1 mg/dL (8.4-10.5)
[2017-09-02 17:02] LABS: INR 2.26 (0.93-1.08); PARTIAL THROMBOPLASTIN TIME 47.1 Seconds (25.1-36.5); PROTHROMBIN TIME 26.2 SECONDS (9.4-12.5)
[2017-09-02 17:15] LABS: TROPONIN I 0.02 ng/mL
[2017-09-02] MEDS: Sodium Chloride 0.9% 1,000 ML IV SCH (17:20)
--- NOTE | 2017-09-02 18:22 | CARD ---
APPROVED REPORT EKG Measurement Heart [id number] <Conclusion> Undetermined rhythm, possibly Junctional Tachycardia Right bundle branch block Abnormal ECG
[2017-09-02 18:33] LABS: BAND 2 % (0-2); HYPOCHROMIA 2+; LYMPHOCYTE 3 % (22.0-35.0); MONOCYTE 1 % (1.0-6.0); NEUTROPHIL 94 % (50.0-70.0); PLATELET ESTIMATE NORMAL (NORMAL); TARGET CELLS 2+; TOXIC GRANULATION 2+
[2017-09-02 18:34] LABS: ROULEAU 2+
--- NOTE | 2017-09-02 19:04 | ED PDOC ---
Arrival/HPI - General Chief Complaint: GI Problem Time Seen by Provider: 09/02/17 15:20 Historian: Patient, Half-Way - History of Present Illness Narrative History of Present Illness (Text): 09/02/17 19:00 A 82 year old female sent into the emergency department from [facility] for vomiting dark coffee ground vomitus today. On evaluation, patient reports 1-2 episodes of vomiting but denies any blood. Patient is a poor historian, unable to provide any further information. As per [facility] records, no history of fevers. Time/Duration: Other (today) Context: Home ([facility]) Past Medical History - Provider Review Nursing Documentation Reviewed: Yes - Infectious Disease Hx of Infectious Diseases: None - Tetanus Immunization Tetanus Immunization: Unknown - Reproductive Menopause: Yes - Cardiac Hx Pacemaker: No - Pulmonary Hx Chronic Obstructive Pulmonary Disease (COPD): Yes Other/Comment: MRSA to L leg - Neurological Hx Paralysis: No - HEENT Hx HEENT Disorder: Yes Hx Cataracts: Yes (BILATERAL SURGERY) - Renal Hx Renal Disorder: Yes Hx Neurogenic Bladder: Yes - Endocrine/Metabolic Hx Diabetes Mellitus Type 2: Yes - Hematological/Oncological Hx Cancer: No - Integumentary Hx Dermatological Disorder: Yes (CELLULITIS,LEFT VENOUS STASIS ULCER) Other/Comment: cellulitis left ankle wound, left foot red and +2 edema, foul smelling dng noted to left ankle wound - Musculoskeletal/Rheumatological Hx Musculoskeletal Disorders: Yes - Gastrointestinal Hx Gastrointestinal Disorders: Yes Hx Gastroesophageal Reflux: Yes Other/Comment: diaphragmatic hernia - Genitourinary/Gynecological Hx Reproductive Disorders: No - Psychiatric Hx Depression: Yes Hx Substance Use: No - Past Surgical History Past Surgical History: Non-Contributing - Surgical History Hx Mastectomy: No - Anesthesia Hx Anesthesia: Yes Hx Anesthesia Reactions: No Hx Malignant Hyperthermia: No - Suicidal Assessment Feels Threatened In Home Enviroment: No Family/Social History - Physician Review Nursing Documentation Reviewed: Yes Family/Social History: No Known Family HX Smoking Status: Never Smoked Hx Alcohol Use: No Hx Substance Use: No Hx Substance Use Treatment: No Allergies/Home Meds Allergies/Adverse Reactions: Allergies banana Allergy (Verified 02/08/17 14:47) RASH Influenza Virus Vaccines Allergy (Verified 02/08/17 14:47) RASH kiwi Allergy (Verified 02/08/17 14:47) RASH Penicillins Allergy (Verified 02/08/17 14:47) RASH pneumococcal vaccine Allergy (Verified 02/08/17 14:47) RASH strawberry Allergy (Verified 02/08/17 14:47) RASH Sulfa (Sulfonamide Antibiotics) Allergy (Verified 02/08/17 14:47) RASH tomato Allergy (Verified 02/08/17 14:47) RASH Home Medications: Home Meds Medication Instructions Recorded Confirmed Albuterol/Ipratropium [Duoneb 3 3 ml IH Q6H 03/16/17 09/02/17 mg/0.5 mg (3 ml) UD] Colchicine [Colcrys] 1 tab PO DAILY 03/16/17 09/02/17 Epoetin Reed [Procrit] 40,000 units IM Q7D 03/16/17 09/02/17 Ferrous Sulfate [Feosol] 1 tab PO BID 03/16/17 09/02/17 oxyCODONE/Acetaminophen [Percocet 1 tab PO BID 03/16/17 09/02/17 5/325 mg Tab] Amino AC/Protein Hydr/Whey Pro 30 ml PO DAILY 09/02/17 09/02/17 [Prosource Protein 946 ml] Apixaban [Eliquis] 2.5 mg PO BID 09/02/17 09/02/17 Arformoterol [Brovana] 1 francis IH BID 09/02/17 09/02/17 Budesonide [Pulmicort Respules] 0.5 mg IH BID 09/02/17 09/02/17 Folic Acid/Vit B Complex and C 1 tab PO DAILY 09/02/17 09/02/17 [Emma-Shereen] Ondansetron HCl [Zofran] 4 mg PO PRN PRN 09/02/17 09/02/17 Tiotropium [place] Inhaler 2 inhaler INH BID 09/02/17 09/02/17 [Spiriva Inhalation Handihaler Device] predniSONE [Prednisone] 0 mg PO DAILY 09/02/17 09/02/17 Review of Systems - Review of Systems Systems not reviewed;Unavailable: Acuity of Condition Physical Exam Vital Signs Reviewed: Yes Vital Signs Temp Pulse Resp BP Pulse Ox 09/02/17 17:36 82 18 119/62 96 09/02/17 15:47 97.9 F 09/02/17 15:10 97.3 F L 87 18 113/74 97 Temperature: Afebrile Blood Pressure: Normal Pulse: Regular Respiratory Rate: Normal Appearance: Positive for: Well-Appearing, Non-Toxic, Comfortable Pain Distress: None - Systems Exam Head: Present: Atraumatic, Normocephalic Pupils: Present: PERRL Extroacular Muscles: Present: EOMI Conjunctiva: Present: Normal Mouth: Present: Dry. No: Normal Tounge (dark colored tongue) Neck: Present: Normal Range of Motion Respiratory/Chest: Present: Clear to Auscultation, Good Air Exchange. No: Respiratory Distress, Accessory Muscle Use Cardiovascular: Present: Regular Rate and Rhythm, Normal S1, S2. No: Murmurs Abdomen: Present: Normal Bowel Sounds. No: Tenderness, Distention, Peritoneal Signs Back: Present: Normal Inspection Upper Extremity: Present: NORMAL PULSES, Other (diffuse ecchymosis). No: Cyanosis, Edema Lower Extremity: Present: NORMAL PULSES, Other (diffuse ecchymosis, dressing noted to left ankle ). No: Edema, CALF TENDERNESS Neurological: Present: GCS=15, CN II-XII Intact, Speech Normal Skin: Present: Warm, Dry, Normal Color. No: Rashes Medical Decision Making ED Course and Treatment: 09/02/17 19:00 Impression: A 82 year old female sent from [facility] for dark coffee ground vomitus Plan: -- Chest xray -- EKG -- Labs -- IV fluids -- Reassess and disposition Progress Notes: EKG shows junctional rhythm at 89 BPM with RBBB, prolonged QT. Interpreted by me. Case discussed with Dr. Davey, who is aware of and in agreement with plan for admission to the medical floor for dehydration and serial cbcs. - Lab Interpretations Lab Results: 09/02/17 16:41 09/02/17 16:41 Lab Results 09/02/17 16:41: Blood Type A POSITIVE, Antibody Screen Negative, BBK History Checked Patient has bt 09/02/17 16:41: Sodium 141, Potassium 4.4, Chloride 105, Carbon Dioxide 23, Anion Gap 17, BUN 76 H, Creatinine 1.7 H, Est GFR ( Amer) 35, Est GFR ( Non-Af Amer) 29, Random Glucose 158 H, Calcium 8.1 L, Total Bilirubin 1.6 H, AST 33, ALT 34, Alkaline Phosphatase 75, Troponin I 0.02 D, Total Protein 6.1, Albumin 2.9 L, Globulin 3.2, Albumin/Globulin Ratio 0.9 L 09/02/17 16:41: PT 26.2 H, INR 2.26 H, APTT 47.1 H 09/02/17 16:41: WBC 12.1 H D, RBC 4.94, Hgb 13.4, Hct 43.7, MCV 88.5, MCH 27.1, MCHC 30.7 L, RDW 21.1 H, Plt Count 116 L, Gran % 96.5 H, Lymph % (Auto) 2.9 L, [place] % (Auto) 0.4 L, Eos % (Auto) 0.1 L, Baso % (Auto) 0.1, Gran # 11.71 H, Lymph # (Auto) 0.4 L, [place] # (Auto) 0.1, Eos # (Auto) 0.0, Baso # (Auto) 0.01, Neutrophils % (Manual) 94 H, Band Neutrophils % 2, Lymphocytes % (Manual) 3 L, Monocytes % (Manual) 1, Toxic Granulation 2+, Platelet Evaluation Normal, Hypochromasia 2+, Target Cells 2+, Rouleaux 2+ I have reviewed the lab results: Yes - RAD Interpretation Radiology Orders: 09/02/17 15:30 CHEST PORTABLE [RAD] Stat - Medication Orders Current Medication Orders: Apixaban (Eliquis) 2.5 mg PO BID [facility] PRN Reason: Protocol Ascorbic Acid (Vitamin C 500 Mg Tab) 500 mg PO DAILY [facility] Colchicine (Colocrys) 0.6 mg PO DAILY [facility] Ferrous Sulfate (Feosol) 324 mg PO BID [facility] Sodium Chloride (Sodium Chloride 0.9%) 1,000 mls @ 70 mls/hr IV .[id number] KEO Last Admin: 09/02/17 17:20 Dose: 70 mls/hr eMAR Start Stop Document 09/02/17 17:20 DEVON (Rec: 09/02/17 17:40 DEVON [id number]) Intravenous Solution Start Date 09/02/17 Start Time 17:20 Famotidine (Pepcid 20mg/50ml Premix) 20 mg in 50 mls @ 100 mls/hr IV Q12 KEO Last Admin: 09/02/17 22:28 Dose: 100 mls/hr eMAR Start Stop Document 09/02/17 22:28 [facility] (Rec: 09/02/17 22:28 [id number]) Intravenous Solution Start Date 09/02/17 Start Time 22:28 Linezolid (Zyvox 600mg/300ml D5w) 600 mg in 300 mls @ 300 mls/hr IVPB Q12 KEO Last Admin: 09/02/17 22:30 Dose: 300 mls/hr eMAR Start Stop Document 09/02/17 22:30 [facility] (Rec: 09/02/17 22:31 [id number]) Intravenous Solution Start Date 09/02/17 Start Time 22:31 Insulin Human Regular (Humulin R Med) 0 units SC ACHS KEO PRN Reason: Protocol Montelukast Sodium (Singulair) 10 mg PO HS KEO Last Admin: 09/02/17 22:32 Dose: Not Given Non-Admin Reason: NPO Non-Formulary Medication (Folic Acid/Vit B Complex And C [Emma-Shereen Tablet]) 1 tab PO DAILY KEO Ondansetron HCl (Zofran Tab) 4 mg PO PRN PRN PRN Reason: Nausea/Vomiting Oxycodone/Acetaminophen (Percocet 5/325 Mg Tab) 1 tab PO BID KEO Stop: 09/06/17 10:01 Pregabalin (Lyrica) 50 mg PO BID KEO Discontinued Medications Non-Formulary Medication (Linezolid 600 Mg In D5w 300 Ml [Zyvox 600mg/300ml D5w] ) 600 mg IV Q12H [facility] - Scribe Statement The provider has reviewed the documentation as recorded by the Dione White Provider Scribe Attestation: All medical record entries made by the Scribe were at my direction and personally dictated by me. I have reviewed the chart and agree that the record accurately reflects my personal performance of the history, physical exam, medical decision making, and the department course for this patient. I have also personally directed, reviewed, and agree with the discharge instructions and disposition. Disposition/Present on Arrival - Present on Arrival Any Indicators Present on Arrival: No History of DVT/PE: No History of Uncontrolled Diabetes: Yes Urinary Catheter: No History of Decub. Ulcer: No History Surgical Site Infection Following: None - Disposition Have Diagnosis and Disposition been Completed?: Yes Diagnosis: Dehydration Disposition: HOSPITALIZED Disposition Time: 17:30 Condition: STABLE
[2017-09-02] MEDS ORDERED: D5W IV SCH (20:00)
[2017-09-02] MEDS ORDERED: LINEZOLID IV SCH (20:00)
[2017-09-02] MEDS ORDERED: [UNRECOGNIZED DRUG - OTHER] IV SCH (20:00)
--- NOTE | 2017-09-02 21:16 | CP.PCM.HP ---
Addendum entered and electronically signed by Anne Tavarez DO 09/02/17 23:24: - Head Exam Head Exam: NORMAL INSPECTION - Eye Exam Eye Exam: Normal appearance - ENT Exam ENT Exam: Normal Exam - Neck Exam Neck Exam: Normal Inspection - Respiratory Exam Respiratory Exam: Clear to Ausculation Bilateral. absent: Rales, Rhonchi, Wheezes - Cardiovascular Exam Cardiovascular Exam: RRR, +S1, +S2. absent: Gallop, Rubs, Murmur - GI/Abdominal Exam GI & Abdominal Exam: Soft. absent: Distended, Guarding, Tenderness, Rebound GI PPX: Pepcid Q12H Original Note: <Anne Tavarez - Last Filed: 09/02/17 23:16> History of Present Illness - History of Present Illness History of Present Illness: Patient is a 82 year old female PMHx of diabetes, A-fib (On Eliquis), Hypothyroidism, chronic left leg swelling/cellulitis, and COPD who was brought from [facility] for evaluation and treatment of nausea and vomiting. Patient was recently discharged on 08/30/2017 after being admitted for AMS. Patient denies any fevers, chills, SOB, chest pain, abdominal pain, nausea , vomiting, changes in bowel habits or urinary symptoms. Review of systems is unreliable for this patient due to her being a poor historian. Patient does not remember ever vomiting and was wondering why she is in the hospital. She was able to recognize me from the previous admission. PMH: A-fib (On Eliquis), Hypothyroidism, chronic left leg swelling/cellulitis, and COPD, Pacemaker, PSH: Pacemaker SOCHx: Denies tobacco, alcohol, and illicit drug use. - Currently lives at [facility] ALL: Sulfa, Penicillins, Pneumococcal Vaccine, Banana, Influenza Vaccine, tomato , Kiwi Meds: MAR Reviewed [facility]: 08/26/2017-08/30/2017 for pleural effusion vs. pneumonia PMD: Dr. Sparks Present on Admission - Present on Admission Any Indicators Present on Admission: No Review of Systems - Review of Systems All systems: reviewed and no additional remarkable complaints except (As per HPI ) Review of Systems: As per HPI 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 - NEUROLOGICAL Hx Paralysis: No - HEENT Hx HEENT Problems: Yes Hx Cataracts: Yes (BILATERAL SURGERY) - RENAL Hx Chronic Kidney Disease: Yes Hx Neurogenic Bladder: Yes - ENDOCRINE/METABOLIC Hx Diabetes Mellitus Type 2: Yes - HEMATOLOGICAL/ONCOLOGICAL Hx Cancer: No - INTEGUMENTARY Hx Dermatological Problems: Yes (CELLULITIS,LEFT VENOUS STASIS ULCER) Other/Comment: cellulitis left ankle wound, left foot red and +2 edema, foul smelling dng noted to left ankle wound - MUSCULOSKELETAL/RHEUMATOLOGICAL Hx Musculoskeletal Disorders: Yes - GASTROINTESTINAL Hx Gastrointestinal Disorders: Yes Hx Gastroesophageal Reflux: Yes Other/Comment: diaphragmatic hernia - GENITOURINARY/GYNECOLOGICAL Hx Reproductive Disorders: No - PSYCHIATRIC Hx Depression: Yes Hx Substance Use: No - SURGICAL HISTORY Hx Mastectomy: No - ANESTHESIA Hx Anesthesia: Yes Hx Anesthesia Reactions: No Hx Malignant Hyperthermia: No Meds Allergies/Adverse Reactions: Allergies Allergy/AdvReac Type Severity Reaction Status Date / Time banana Allergy RASH Verified 02/08/17 14:47 Influenza Virus Vaccines Allergy RASH Verified 02/08/17 14:47 kiwi Allergy RASH Verified 02/08/17 14:47 Penicillins Allergy RASH Verified 02/08/17 14:47 pneumococcal vaccine Allergy RASH Verified 02/08/17 14:47 strawberry Allergy RASH Verified 02/08/17 14:47 Sulfa (Sulfonamide Allergy RASH Verified 02/08/17 14:47 Antibiotics) tomato Allergy RASH Verified 02/08/17 14:47 Physical Exam - Constitutional Appears: Non-toxic, No Acute Distress, Chronically Ill - Extremities Exam Additional comments: Left Lower Extremity. Chronic Wound on anterolateral aspect of left ankle. Drainage and erythema noted. +1 Pedal Edema. Pedal Pulses non-palpable Right Lower Extremity +1 pedal pulse No edema noted NOrmal capillary Refill - Neurological Exam Neurological exam: Alert - Psychiatric Exam Psychiatric exam: Normal Affect, Normal Mood - Skin Skin Exam: Dry Additional comments: Diffuse purpura and ecchymosis especially in distal upper extremity. Skin Dry and scaly Results - Vital Signs Recent Vital Signs: Last Vital Signs Temp 97.9 F 05/01/18 15:47 Pulse 82 09/02/17 17:36 Resp 18 09/02/17 17:36 BP 119/62 09/02/17 17:36 Pulse Ox 96 09/02/17 17:36 - Labs Result Diagrams: 09/02/17 16:41 09/02/17 16:41 Assessment & Plan - Assessment and Plan (Free Text) Assessment: 82 year old female PMHx of diabetes, A-fib (On Eliquis), Hypothyroidism, chronic left leg swelling/cellulitis, and COPD who was brought from [facility] for evaluation and treatment of nausea and vomiting. Patient found to have elevated Cr and BUN likely secondary to volume loss and dehydration. Patient admitted for IVF and serial CBC. Plan: Nausea/Vomiting PRN Zofran Blood Cultures CT Abd/Pelvis NPO Swallow Eval Consider GI Consult ARIEL Patient is at baseline may be component of dehydration, volume loss from nausea and vomiting Elevated Cr of 1.7 BUN 76 NS @ 70mls/r Pneumonia vs. Pleural Effusion CXR (Adm): There is a chronic diffuse infiltrate in the right lung that is unchanged. The focal infiltrate in the upper lobe has improved ProCal Blood Cultures Cont. Cipro 200mg Q12H from previous admission (Day ) Cont. Linozelid 600mg Q12H from previous admission (Day ) ID Consult (Dr. Alvares) LLE wounds - Wound cultures from previous admission Left leg: Staph aureus Left thigh: VRE, Pseudomonas Left ankle: Pseudomonas, MRSA, Coag negative staph Cont. Cipro 200mg Q12H from previous admission (Day ) Cont. Linozelid 600mg Q12H from previous admission (Day ) ID Consult (Dr. Alvares) Wound Care Consider Podiatry Consult Hx of Pulmonary Hypertension Echo (08/27/17) EF 48%, severly dilated right ventricle and moderate to severe Pulm. HTN. Plase see ECHO for more details - Strict I/O - Daily weights Hx of Afib - Continue Eliquis - Lopresor 25mg PO BID for rate control Hx of COPD - Continue home singulair - Duoneb Q2H PRN Hx of DM - Levemir 10 (Hold) - ISS Med - ACHS GI PPX: Protonix IV DVT PPX: Eliquis Case discussed with Attending. Anne Tavarez, PGY-1 <Elena Mason - Last Filed: 09/03/17 00:42> Results - Vital Signs Recent Vital Signs: Last Vital Signs Temp 97.9 F 09/02/17 15:47 Pulse 82 09/02/17 17:36 Resp 18 09/02/17 17:36 BP 119/62 09/02/17 17:36 Pulse Ox 96 09/02/17 17:36 - Labs Result Diagrams: 09/02/17 16:41 09/02/17 16:41 Labs: Laboratory Results - last 24 hr 09/02/17 22:19 POC Glucose (mg/dL) 140 H Attending/Attestation - Attestation I have personally seen and examined this patient.: Yes I have fully participated in the care of the patient.: Yes I have reviewed all pertinent clinical information: Yes Notes (Text): 09/03/17 00:28 Note:O/E lips dry PPM noted in L anterior chest wall Chronic ulcer noted in the anteromedial region of the L ankle and a small ulcer noted in L infra malleolar region. Ecchymotic areas noted on the dorsum of both hands. Picc line noted in RUE. Agree with documentation and orders placed. 09/03/17 00:41
[2017-09-02] MEDS ORDERED: Famotidine 20mg/50ml 20 MG/50 ML BAG IV SCH (22:00)
[2017-09-02] MEDS: Linezolid 600 mg in D5W 300 ml 600 MG/300 ML BAG IVPB SCH (22:30)
[2017-09-02] MEDS ORDERED: Albuterol-Ipratrop 3 mg / 0.5 (3 ml) UD IH PRN (22:58)
[2017-09-02] MEDS ORDERED: Albuterol-Ipratrop 3 mg / 0.5 (3 ml) UD IH SCH (23:00)
[2017-09-02] MEDS ORDERED: Ciprofloxacin 200mg/100ml D5W 100 ML IVPB SCH (23:00)
--- NOTE | 2017-09-03 01:04 | CT ---
EXAM: CT Abdomen and Pelvis Without Intravenous Contrast EXAM DATE/TIME: 09/02/2017 10:40 PM CLINICAL HISTORY: 82 years old, female; Signs and symptoms; Nausea and vomiting TECHNIQUE: Axial computed tomography images of the abdomen and pelvis without intravenous contrast. All CT scans at this facility use one or more dose reduction techniques, viz.: automated exposure control; ma/kV adjustment per patient size (including targeted exams where dose is matched to indication; i.e. head); or iterative reconstruction technique. Coronal and sagittal reformatted images were created and reviewed. COMPARISON: US - RENAL 2016-11-28 19:03 FINDINGS: Lower thorax: The heart is enlarged. There are coronary artery calcifications.There is streak artifact from pacemaker leads. There are bilateral pleural effusions. There is airspace disease at both lung bases. There is a hiatal hernia ABDOMEN: Liver: unremarkable Gallbladder and bile ducts: Gallbladder is distended. There is a small dependent stones. Common duct is unremarkable. Pancreas: Pancreas is atrophic. Spleen: unremarkable Adrenals: unremarkable Kidneys and ureters: Kidneys are mildly atrophic. There is no pelvocaliectasis or ureterectasis. Stomach and bowel: Stomach is almost completely empty. Rotation is normal. There is no small bowel obstruction. Ileocecal region is unremarkable.terminal ileum is unremarkable. Appendix is not identified. Colon is incompletely distended which limits evaluation. PELVIS: Appendix: See stomach and bowel Bladder: unremarkable Reproductive: Uterus and adnexal structures are unremarkable. ABDOMEN and PELVIS: Intraperitoneal space: There is ascites in the abdomen and pelvis.There is no free air . Bones/joints: Bony structures are osteopenic with degenerative change. Soft tissues: There is body wall edema. There is a fat containing umbilical hernia. Vasculature: There are vascular calcifications. Lymph nodes: unremarkable Tubes, lines and devices: IMPRESSION: Cardiomegaly with pacemaker; atherosclerotic disease; anasarca and ascites, etiology unknown; gallstone; no acute solid visceral abnormality; no bowel obstruction Additional nonemergent findings as described above.
[2017-09-03 03:39] VITALS: BMI 32.8
[2017-09-03 07:29] LABS: GRAN # 11.25 (1.4-6.5); GRAN % 91.8 % (50.0-68.0); HEMOGLOBIN 13.6 g/dL (12.0-16.0); LYMPH # 0.5 (1.2-3.4); LYMPH % 4.2 % (22.0-35.0); MEAN CELL VOLUME 88.4 fl (80.0-105.0); MEAN CORPUSCULAR HEMOGLOBIN 26.8 pg (25.0-35.0); MEAN CORPUSCULAR HGB CONC 30.4 g/dl (31.0-37.0); MONO # 0.5 (0.1-0.6); PLATELET COUNT 108 10^3/uL (120.0-450.0); RBC 5.07 10^6/uL (3.5-6.1); RED CELL DISTRIBUTION WIDTH 21.2 % (11.5-14.5); WHITE BLOOD COUNT 12.3 10^3/ul (4.5-11.0)
[2017-09-03] MEDS: Insulin Reg-MEDIUM-Coverage SC SCH ×4 (07:30→22:01)
[2017-09-03] MEDS: Budesonide 0.5 mg/2 ml Inhal Susp UD IH SCH ×3 (07:35→20:30)
[2017-09-03] MEDS: Arformoterol 15 mcg/2 ml Inh Sol IH SCH ×3 (07:35→20:30)
[2017-09-03 07:48] LABS: ALB/GLOB RATIO 0.9 (1.1-1.8); ALBUMIN 2.9 g/dL (3.0-4.8); CALCIUM 8.1 mg/dL (8.4-10.5)
--- NOTE | 2017-09-03 09:34 | CP.PCM.PN ---
<Nikhil Meneses - Last Filed: 09/03/17 09:29> Subjective - Date & Time of Evaluation Date of Evaluation: 09/03/17 Time of Evaluation: 09:31 - Subjective Subjective: Medicine Progress Note Pt seen and examined at bedside. No acute overnight events. Pt states that she believes she was vomiting some blood. However, pt is a poor historian. Pt denies CP, SOB, abdominal pain, fever, chills, JAY, or dizziness. Objective - Vital Signs/Intake and Output Vital Signs (last 24 hours): Temp Pulse Resp BP Pulse Ox 97.5 F L 80 18 126/72 94 L 09/03/17 08:36 09/03/17 08:36 09/03/17 08:36 09/03/17 08:36 09/03/17 08:36 Intake and Output: 09/03/17 09/03/17 06:59 18:59 Intake Total 0 Balance 0 - Medications Medications: Current Medications Albuterol/Ipratropium (Duoneb 3 Mg/0.5 Mg (3 Ml) Ud) 3 ml IH Q2H PRN PRN Reason: Shortness of Breath Arformoterol Tartrate (Brovana) 15 mcg IH BID [facility] Last Admin: 09/03/17 07:36 Dose: 15 mcg Ascorbic Acid (Vitamin C 500 Mg Tab) 500 mg PO DAILY [facility] Budesonide (Pulmicort Respules) 0.5 mg IH BID [facility] Last Admin: 09/03/17 07:36 Dose: 0.5 mg Ferrous Sulfate (Feosol) 324 mg PO BID [facility] Sodium Chloride (Sodium Chloride 0.9%) 1,000 mls @ 70 mls/hr IV .[id number] [facility] Last Admin: 09/02/17 17:20 Dose: 70 mls/hr Linezolid (Zyvox 600mg/300ml D5w) 600 mg in 300 mls @ 300 mls/hr IVPB Q12 [facility] Last Admin: 09/02/17 22:30 Dose: 300 mls/hr Insulin Human Regular (Humulin R Med) 0 units SC ACHS [facility] PRN Reason: Protocol Montelukast Sodium (Singulair) 10 mg PO HS [facility] Last Admin: 09/02/17 22:32 Dose: Not Given Non-Formulary Medication (Folic Acid/Vit B Complex And C [Emma-Shereen Tablet]) 1 tab PO DAILY [facility] Nystatin (Nystatin Oral Susp) 5 ml PO QID [facility] Ondansetron HCl (Zofran Inj) 4 mg IVP Q6H PRN PRN Reason: Nausea/Vomiting Oxycodone/Acetaminophen (Percocet 5/325 Mg Tab) 1 tab PO BID [facility] Stop: 09/06/17 10:01 Pantoprazole Sodium (Protonix Inj) 40 mg IVP Q12 [facility] Pregabalin (Lyrica) 50 mg PO BID [facility] - Labs Labs: 09/03/17 07:00 09/03/17 07:00 PT 26.2 SECONDS (9.4-12.5) H 09/02/17 16:41 INR 2.26 (0.93-1.08) H 09/02/17 16:41 APTT 47.1 Seconds (25.1-36.5) H 09/02/17 16:41 - Constitutional Appears: No Acute Distress - Head Exam Head Exam: NORMAL INSPECTION - Eye Exam Eye Exam: Normal appearance - ENT Exam ENT Exam: Mucous Membranes Dry Additional comments: Dried blood seen on lips and tongue, white trush visable on tongue - Neck Exam Neck Exam: Normal Inspection - Respiratory Exam Respiratory Exam: Rhonchi. absent: Chest Wall Tenderness, Clear to Ausculation Bilateral, Rales, Wheezes, Respiratory Distress - Cardiovascular Exam Cardiovascular Exam: RRR, +S1, +S2. absent: Gallop, Rubs, Murmur - GI/Abdominal Exam GI & Abdominal Exam: Soft. absent: Distended, Guarding, Tenderness, Rebound - Extremities Exam Additional comments: LLE ulcer noted - Back Exam Back Exam: NORMAL INSPECTION - Neurological Exam Neurological Exam: Alert, Awake - Psychiatric Exam Psychiatric exam: Normal Affect, Normal Mood - Skin Skin Exam: Dry, Intact, Normal Color, Warm Assessment and Plan - Assessment and Plan (Free Text) Assessment: 82 year old female PMHx of diabetes, A-fib (On Eliquis), Hypothyroidism, chronic left leg swelling/cellulitis, and COPD who was brought from [facility] for evaluation and treatment of nausea and vomiting. Patient found to have elevated Cr and BUN likely secondary to volume loss and dehydration. Patient admitted for nausea, vomiting, possible upper GI bleed, leukocytosis, and ARIEL. Plan: 1. Nausea/Vomiting, possible upper GI bleed - PRN Zofran - Blood Cultures - CT Abd/Pelvis showed cardiomegaly with pacmaker, atherosclerotic disease, anasarca and ascites, gallstone, no acute solid visceral abnormality, no bowel obstruction - NPO with ice chips - Swallow Eval - GI Consulted 2. ARIEL - Elevated Cr, consistent from last admission - Normal renal function ~6 months ago - NS @ 70mls/r 3. Pneumonia vs. Pleural Effusion - CXR (Adm): There is a chronic diffuse infiltrate in the right lung that is unchanged. The focal infiltrate in the upper lobe has improved - ProCal normal on previous admission, reordered - Blood Cultures - Cont. Cipro 200mg Q12H from previous admission (Day ) - Cont. Linozelid 600mg Q12H from previous admission (Day ) - ID Consult (Dr. Alvares) 4. LLE wounds - Wound cultures from previous admission Left leg: Staph aureus Left thigh: VRE, Pseudomonas Left ankle: Pseudomonas, MRSA, Coag negative staph - Cont. Cipro 200mg Q12H from previous admission (Day ) - Cont. Linozelid 600mg Q12H from previous admission (Day ) - ID Consult (Dr. Alvares) - Wound Care - Podiatry Consult consulted 5. Oral Candidiasis - Nystatin swish and swallow 6. Hx of Pulmonary Hypertension - Echo (08/27/17) EF 48%, severly dilated right ventricle and moderate to severe Pulm. HTN. Please see ECHO for more details - Strict I/O - Daily weights 7. Hx of Afib - Hold Eliquis due to possible GI bleed - Lopresor 25mg PO BID for rate control 8. Hx of COPD - Continue home singulair - Duoneb Q2H PRN 9. Hx of DM - Levemir 10 (Hold) - ISS Med - ACHS GI PPX: Protonix IV DVT PPX: Eliquis held due to possible GI bleed. Patient seen and discussed in detail with Dr. Davey. Adalberto Meneses, PGY1 <Don Davey - Last Filed: 09/03/17 16:54> Objective - Vital Signs/Intake and Output Vital Signs (last 24 hours): Temp Pulse Resp BP Pulse Ox 98.4 F 99 H 21 130/66 96 09/03/17 14:59 09/03/17 14:59 09/03/17 14:59 09/03/17 14:59 09/03/17 14:59 Intake and Output: 09/03/17 09/03/17 06:59 18:59 Intake Total 0 Balance 0 - Medications Medications: Current Medications Albuterol/Ipratropium (Duoneb 3 Mg/0.5 Mg (3 Ml) Ud) 3 ml IH Q2H PRN PRN Reason: Shortness of Breath Arformoterol Tartrate (Brovana) 15 mcg IH BID [facility] Last Admin: 09/03/17 07:36 Dose: 15 mcg Ascorbic Acid (Vitamin C 500 Mg Tab) 500 mg PO DAILY [facility] Last Admin: 09/03/17 11:08 Dose: Not Given Budesonide (Pulmicort Respules) 0.5 mg IH BID [facility] Last Admin: 09/03/17 07:36 Dose: 0.5 mg Ferrous Sulfate (Feosol) 324 mg PO BID [facility] Last Admin: 09/03/17 11:06 Dose: Not Given Sodium Chloride (Sodium Chloride 0.9%) 1,000 mls @ 70 mls/hr IV .[id number] [facility] Last Admin: 09/03/17 16:18 Dose: 70 mls/hr Linezolid (Zyvox 600mg/300ml D5w) 600 mg in 300 mls @ 300 mls/hr IVPB Q12 [facility] Last Admin: 09/03/17 10:46 Dose: 300 mls/hr Ciprofloxacin (Cipro 400mg/200ml Dsw) 400 mg in 200 mls @ 133.3 mls/hr IVPB Q12 [facility] PRN Reason: Protocol Insulin Human Regular (Humulin R Med) 0 units SC ACHS [facility] PRN Reason: Protocol Last Admin: 09/03/17 12:24 Dose: Not Given Montelukast Sodium (Singulair) 10 mg PO HS [facility] Last Admin: 09/02/17 22:32 Dose: Not Given Non-Formulary Medication (Folic Acid/Vit B Complex And C [Emma-Shereen Tablet]) 1 tab PO DAILY [facility] Nystatin (Nystatin Oral Susp) 5 ml PO QID [facility] Last Admin: 09/03/17 16:17 Dose: 5 ml Ondansetron HCl (Zofran Inj) 4 mg IVP Q6H PRN PRN Reason: Nausea/Vomiting Oxycodone/Acetaminophen (Percocet 5/325 Mg Tab) 1 tab PO BID [facility] Stop: 09/06/17 10:01 Last Admin: 09/03/17 11:08 Dose: Not Given Pantoprazole Sodium (Protonix Inj) 40 mg IVP Q12 [facility] Last Admin: 09/03/17 10:46 Dose: 40 mg Pregabalin (Lyrica) 50 mg PO BID [facility] Last Admin: 09/03/17 11:07 Dose: Not Given - Labs Labs: PT 26.2 SECONDS (9.4-12.5) H 09/02/17 16:41 INR 2.26 (0.93-1.08) H 09/02/17 16:41 APTT 47.1 Seconds (25.1-36.5) H 09/02/17 16:41 Attending/Attestation - Attestation I have personally seen and examined this patient.: Yes I have fully participated in the care of the patient.: Yes I have reviewed all pertinent clinical information, including history, physical exam and plan: Yes Notes (Text): 09/03/17 16:53 Attending note; Patient seen and examined with resident. Patient is a 82 year old female with history of atrial fibrillation on eliquis, hypothyroidism, chronic LLE cellulitis, COPD, pulmonary hypertension is admitted for nausea and vomiting/possible upper GI bleed. Patient has some dried blood in the mouth. Throat is clear. Hemoglobin is stable. GI evaluation requested. Continue IV Protonix. The patient was recently discharged from the hospital after getting treated for pneumonia and lower extremity cellulitis. Currently on IV ciprofloxacin and Zyvox. ID evaluation requested. Leg Wound cultures grew MRSA, VRE, psudomonas and corynebacterium. Patient is on cipro and zyvox. Palliative care evaluation requested. Continue local wound care with podiatry. Prognosis is poor. Upon discharge patient will follow up with Dr Carr. 09/03/17 16:53
[2017-09-03] MEDS ORDERED: Non Formulary Medication (Folic Acid/Vit B Complex And C [Rena-Vite Tablet] 1 TAB) PO SCH (10:00)
[2017-09-03] MEDS ORDERED: Non Formulary Medication (Ferrous Sulfate [Feosol] 1 TAB) PO SCH (10:00)
[2017-09-03] MEDS: Linezolid 600 mg in D5W 300 ml 600 MG/300 ML BAG IVPB SCH ×2 (10:46→22:02)
[2017-09-03] MEDS: Nystatin 100,000 Units/ml Oral Susp 5 ml UD PO SCH ×4 (11:07→22:01)
[2017-09-03] MEDS: Oxycodone/Acetaminophen 5/325 mg Tab PO SCH ×2 (11:08→18:43)
--- NOTE | 2017-09-03 14:10 | CP.PCM.CON ---
<Leslie Shaffer - Last Filed: 09/03/17 14:07> History of Present Illness - History of Present Illness History of Present Illness: GI Fellow PGY4 Consult Note Patient is a 82 year old female PMHx of diabetes, A-fib (On Eliquis), Hypothyroidism, chronic left leg swelling/cellulitis, and COPD who was brought from [facility] for evaluation and treatment of nausea and vomiting. Patient was recently discharged on 08/30/2017 after being admitted for AMS. Review of systems is unreliable for this patient due to her being a poor historian. Patient does not remember ever vomiting and was wondering why she is in the hospital. GI was consulted for reported coffee ground emesis in residential. No coffee ground emesis, nausea, vomiting or rectal bleeding since admission. ROS: A 12pt ROS was negative except as above PMH: As stated in HPI PSH: Pacemaker SOCHx: Denies tobacco, alcohol, and illicit drug use, Currently lives at [facility] 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 - NEUROLOGICAL Hx Paralysis: No - HEENT Hx HEENT Problems: Yes Hx Cataracts: Yes (BILATERAL SURGERY) - RENAL Hx Chronic Kidney Disease: Yes Hx Neurogenic Bladder: Yes - ENDOCRINE/METABOLIC Hx Diabetes Mellitus Type 2: Yes - HEMATOLOGICAL/ONCOLOGICAL Hx Cancer: No - INTEGUMENTARY Hx Dermatological Problems: Yes (CELLULITIS,LEFT VENOUS STASIS ULCER) Other/Comment: cellulitis left ankle wound, left foot red and +2 edema, foul smelling dng noted to left ankle wound - MUSCULOSKELETAL/RHEUMATOLOGICAL Hx Musculoskeletal Disorders: Yes - GASTROINTESTINAL Hx Gastrointestinal Disorders: Yes Hx Gastroesophageal Reflux: Yes Other/Comment: diaphragmatic hernia - GENITOURINARY/GYNECOLOGICAL Hx Reproductive Disorders: No - PSYCHIATRIC Hx Depression: Yes Hx Substance Use: No - SURGICAL HISTORY Hx Mastectomy: No - ANESTHESIA Hx Anesthesia: Yes Hx Anesthesia Reactions: No Hx Malignant Hyperthermia: No Meds Allergies/Adverse Reactions: Allergies Allergy/AdvReac Type Severity Reaction Status Date / Time banana Allergy RASH Verified 02/08/17 14:47 Influenza Virus Vaccines Allergy RASH Verified 02/08/17 14:47 kiwi Allergy RASH Verified 02/08/17 14:47 Penicillins Allergy RASH Verified 02/08/17 14:47 pneumococcal vaccine Allergy RASH Verified 02/08/17 14:47 strawberry Allergy RASH Verified 02/08/17 14:47 Sulfa (Sulfonamide Allergy RASH Verified 02/08/17 14:47 Antibiotics) tomato Allergy RASH Verified 02/08/17 14:47 - Medications Medications: Current Medications Albuterol/Ipratropium (Duoneb 3 Mg/0.5 Mg (3 Ml) Ud) 3 ml IH Q2H PRN PRN Reason: Shortness of Breath Arformoterol Tartrate (Brovana) 15 mcg IH BID [facility] Last Admin: 09/03/17 07:36 Dose: 15 mcg Ascorbic Acid (Vitamin C 500 Mg Tab) 500 mg PO DAILY [facility] Last Admin: 09/03/17 11:08 Dose: Not Given Budesonide (Pulmicort Respules) 0.5 mg IH BID [facility] Last Admin: 09/03/17 07:36 Dose: 0.5 mg Ferrous Sulfate (Feosol) 324 mg PO BID [facility] Last Admin: 09/03/17 11:06 Dose: Not Given Sodium Chloride (Sodium Chloride 0.9%) 1,000 mls @ 70 mls/hr IV .[id number] [facility] Last Admin: 09/02/17 17:20 Dose: 70 mls/hr Linezolid (Zyvox 600mg/300ml D5w) 600 mg in 300 mls @ 300 mls/hr IVPB Q12 [facility] Last Admin: 09/03/17 10:46 Dose: 300 mls/hr Insulin Human Regular (Humulin R Med) 0 units SC ACHS [facility] PRN Reason: Protocol Last Admin: 09/03/17 12:24 Dose: Not Given Montelukast Sodium (Singulair) 10 mg PO HS [facility] Last Admin: 09/02/17 22:32 Dose: Not Given Non-Formulary Medication (Folic Acid/Vit B Complex And C [Emma-Shereen Tablet]) 1 tab PO DAILY [facility] Nystatin (Nystatin Oral Susp) 5 ml PO QID [facility] Last Admin: 09/03/17 11:07 Dose: Not Given Ondansetron HCl (Zofran Inj) 4 mg IVP Q6H PRN PRN Reason: Nausea/Vomiting Oxycodone/Acetaminophen (Percocet 5/325 Mg Tab) 1 tab PO BID [facility] Stop: 09/06/17 10:01 Last Admin: 09/03/17 11:08 Dose: Not Given Pantoprazole Sodium (Protonix Inj) 40 mg IVP Q12 [facility] Last Admin: 09/03/17 10:46 Dose: 40 mg Pregabalin (Lyrica) 50 mg PO BID [facility] Last Admin: 09/03/17 11:07 Dose: Not Given Physical Exam - Constitutional Appears: Non-toxic, No Acute Distress, Confused - Head Exam Head Exam: ATRAUMATIC, NORMAL INSPECTION, NORMOCEPHALIC - Eye Exam Eye Exam: EOMI, Normal appearance, PERRL - ENT Exam ENT Exam: Mucous Membranes Dry Additional comments: dried old blood in mouth - Neck Exam Neck exam: Positive for: Full Rom - Respiratory Exam Respiratory Exam: Clear to Auscultation Bilateral, NORMAL BREATHING PATTERN - Cardiovascular Exam Cardiovascular Exam: Irregular Rhythm - GI/Abdominal Exam GI & Abdominal Exam: Normal Bowel Sounds, Soft. absent: Distended, Organomegaly , Tenderness - Rectal Exam Rectal Exam: Deferred - Extremities Exam Extremities exam: Positive for: normal inspection - Neurological Exam Neurological exam: Alert - Psychiatric Exam Psychiatric exam: Normal Affect, Normal Mood - Skin Skin Exam: Dry, Intact, Normal Color, Warm Results - Vital Signs Recent Vital Signs: Last Vital Signs Temp 97.5 F L 09/03/17 08:36 Pulse 80 09/03/17 08:36 Resp 18 09/03/17 08:36 BP 126/72 09/03/17 08:36 Pulse Ox 94 L 09/03/17 08:36 - Labs Result Diagrams: 09/03/17 07:00 09/03/17 07:00 Labs: Laboratory Results - last 24 hr 09/02/17 09/03/17 09/03/17 22:19 04:52 07:00 WBC RBC Hgb Hct MCV MCH MCHC RDW Plt Count Gran % Lymph % (Auto) [place] % (Auto) Eos % (Auto) Baso % (Auto) Gran # Lymph # (Auto) [place] # (Auto) Eos # (Auto) Baso # (Auto) Sodium Potassium Chloride Carbon Dioxide Anion Gap BUN Creatinine Est GFR ( Amer) Est GFR (Non-Af Amer) POC Glucose (mg/dL) 140 H 171 H Random Glucose Calcium Total Bilirubin AST ALT Alkaline Phosphatase Total Protein Albumin Globulin Albumin/Globulin Ratio Procalcitonin 0.09 L 09/03/17 09/03/17 09/03/17 07:00 07:00 11:17 WBC 12.3 H RBC 5.07 Hgb 13.6 Hct 44.8 MCV 88.4 MCH 26.8 MCHC 30.4 L RDW 21.2 H Plt Count 108 L Gran % 91.8 H Lymph % (Auto) 4.2 L [place] % (Auto) 4.0 Eos % (Auto) 0.0 L Baso % (Auto) 0.0 Gran # 11.25 H Lymph # (Auto) 0.5 L [place] # (Auto) 0.5 Eos # (Auto) 0.0 Baso # (Auto) 0.00 Sodium 143 Potassium 3.9 Chloride 107 Carbon Dioxide 22 Anion Gap 17 BUN 72 H Creatinine 1.7 H Est GFR ( Amer) 35 Est GFR (Non-Af Amer) 29 POC Glucose (mg/dL) 128 H Random Glucose 136 H Calcium 8.1 L Total Bilirubin 1.5 H AST 26 ALT 36 Alkaline Phosphatase 73 Total Protein 6.1 Albumin 2.9 L Globulin 3.2 Albumin/Globulin Ratio 0.9 L Procalcitonin Assessment & Plan - Assessment and Plan (Free Text) Assessment: This is a 82yF presenting with nausea and vomiting. 1. Coffee ground emesis 2. Nausea and vomiting-resolved 3. Afib on OAC Plan: -Continue supportive care with anti-emetics -IVF hydration -Advance to clear liquid diet and as tolerated -No active GI bleeding, H/H stable -Continue to monitor H/H -No plan for EGD -Please call with any questions or concerns <Rossy Phan - Last Filed: 09/03/17 19:00> Meds - Medications Medications: Current Medications Albuterol/Ipratropium (Duoneb 3 Mg/0.5 Mg (3 Ml) Ud) 3 ml IH Q2H PRN PRN Reason: Shortness of Breath Arformoterol Tartrate (Brovana) 15 mcg IH BID [facility] Last Admin: 09/03/17 07:36 Dose: 15 mcg Ascorbic Acid (Vitamin C 500 Mg Tab) 500 mg PO DAILY [facility] Last Admin: 09/03/17 11:08 Dose: Not Given Budesonide (Pulmicort Respules) 0.5 mg IH BID [facility] Last Admin: 09/03/17 07:36 Dose: 0.5 mg Ferrous Sulfate (Feosol) 324 mg PO BID [facility] Last Admin: 09/03/17 18:43 Dose: 324 mg Sodium Chloride (Sodium Chloride 0.9%) 1,000 mls @ 70 mls/hr IV .[id number] [facility] Last Admin: 09/03/17 16:18 Dose: 70 mls/hr Linezolid (Zyvox 600mg/300ml D5w) 600 mg in 300 mls @ 300 mls/hr IVPB Q12 [facility] Last Admin: 09/03/17 10:46 Dose: 300 mls/hr Meropenem 250 mg/ Sodium (Chloride) 100 mls @ 100 mls/hr IVPB Q12H [facility] Last Admin: 09/03/17 18:42 Dose: 100 mls/hr Insulin Human Regular (Humulin R Med) 0 units SC ACHS [facility] PRN Reason: Protocol Last Admin: 09/03/17 17:00 Dose: Not Given Montelukast Sodium (Singulair) 10 mg PO HS [facility] Last Admin: 09/02/17 22:32 Dose: Not Given Multi-Ingredient Cream (Hydrocerin Cream) 0 ea TOP BID [facility] Last Admin: 09/03/17 18:43 Dose: 1 applic Nystatin (Nystatin Oral Susp) 5 ml PO QID [facility] Last Admin: 09/03/17 18:43 Dose: Not Given Ondansetron HCl (Zofran Inj) 4 mg IVP Q6H PRN PRN Reason: Nausea/Vomiting Oxycodone/Acetaminophen (Percocet 5/325 Mg Tab) 1 tab PO BID [facility] Stop: 09/06/17 10:01 Last Admin: 09/03/17 18:43 Dose: 1 tab Pantoprazole Sodium (Protonix Inj) 40 mg IVP Q12 [facility] Last Admin: 09/03/17 10:46 Dose: 40 mg Pregabalin (Lyrica) 50 mg PO BID [facility] Last Admin: 09/03/17 18:42 Dose: 50 mg Vitamin B Complex/Vit C/Folic Acid (Nephro-Shereen) 1 tab PO DAILY [facility] Results - Vital Signs Recent Vital Signs: Last Vital Signs Temp 98.4 F 09/03/17 14:59 Pulse 99 H 09/03/17 14:59 Resp 21 09/03/17 14:59 BP 130/66 09/03/17 14:59 Pulse Ox 96 09/03/17 14:59 - Labs Result Diagrams: 09/03/17 07:00 09/03/17 07:00 Labs: Laboratory Results - last 24 hr 09/03/17 15:53 POC Glucose (mg/dL) 134 H Attending/Attestation - Attestation I have personally seen and examined this patient.: Yes I have fully participated in the care of the patient.: Yes I have reviewed all pertinent clinical information: Yes Notes (Text): 09/03/17 18:57 This is a 82 year old F presenting with nausea and vomiting with coffee ground emesis one episode now resolved with no drop in hb/Hct. She has history of A fib on anti coagulation. No urgent indication for EGD. Likely esophagitis vs heather dorman which has self resolved. Will continue PPI daily and supportive care. Rest of plan as per primary team. Will sign off at this time. Please call with any questions or concerns
[2017-09-03] MEDS: Sodium Chloride 0.9% 1,000 ML IV SCH (16:18)
--- NOTE | 2017-09-03 16:34 | CP.PCM.CON ---
History of Present Illness - History of Present Illness History of Present Illness: Infectious Disease Follow Up: September 03, 2017 82 yo female well known to me sent from [facility] for vomiting possible hemochezia. Patient with known left lower leg gangrene. Patient with increasing coughing over the past 2 weeks and had a short hospitalization at [facility] discharged a few days ago. Poor appetite. No reports of fevers or chills. Patient is known to be a poor historian. Chronically ill and appears to be deteriorating to me. 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 PSHx: Multiple debridements of the left leg and foot Allergies: PCN, SULFA Social Hx: intermediate resident of [facility]. No known tobacco, EtOH, or illicit drug use. Active Medications Albuterol/Ipratropium (Duoneb 3 Mg/0.5 Mg (3 Ml) Ud) 3 ml IH Q2H PRN PRN Reason: Shortness of Breath Arformoterol Tartrate (Brovana) 15 mcg IH BID [facility] Last Admin: 09/03/17 07:36 Dose: 15 mcg Ascorbic Acid (Vitamin C 500 Mg Tab) 500 mg PO DAILY [facility] Last Admin: 09/03/17 11:08 Dose: Not Given Budesonide (Pulmicort Respules) 0.5 mg IH BID [facility] Last Admin: 09/03/17 07:36 Dose: 0.5 mg Ferrous Sulfate (Feosol) 324 mg PO BID [facility] Last Admin: 09/03/17 11:06 Dose: Not Given Sodium Chloride (Sodium Chloride 0.9%) 1,000 mls @ 70 mls/hr IV .[id number] [facility] Last Admin: 09/02/17 17:20 Dose: 70 mls/hr Linezolid (Zyvox 600mg/300ml D5w) 600 mg in 300 mls @ 300 mls/hr IVPB Q12 [facility] Last Admin: 09/03/17 10:46 Dose: 300 mls/hr Insulin Human Regular (Humulin R Med) 0 units SC ACHS [facility] PRN Reason: Protocol Last Admin: 09/03/17 12:24 Dose: Not Given Montelukast Sodium (Singulair) 10 mg PO HS [facility] Last Admin: 09/02/17 22:32 Dose: Not Given Non-Formulary Medication (Folic Acid/Vit B Complex And C [Emma-Shereen Tablet]) 1 tab PO DAILY [facility] Nystatin (Nystatin Oral Susp) 5 ml PO QID [facility] Last Admin: 09/03/17 11:07 Dose: Not Given Ondansetron HCl (Zofran Inj) 4 mg IVP Q6H PRN PRN Reason: Nausea/Vomiting Oxycodone/Acetaminophen (Percocet 5/325 Mg Tab) 1 tab PO BID [facility] Stop: 09/06/17 10:01 Last Admin: 09/03/17 11:08 Dose: Not Given Pantoprazole Sodium (Protonix Inj) 40 mg IVP Q12 [facility] Last Admin: 09/03/17 10:46 Dose: 40 mg Pregabalin (Lyrica) 50 mg PO BID [facility] Last Admin: 09/03/17 11:07 Dose: Not Given Family Hx: none given ROS: no fevers, chills, cough, nausea, vomiting, diarrhea, headaches, dizziness, chest pain, abdominal pain, depression, anxiety, melena, hematura, hematemesis, hematochezia. Left leg swelling and lymphedema. 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 - NEUROLOGICAL Hx Paralysis: No - HEENT Hx HEENT Problems: Yes Hx Cataracts: Yes (BILATERAL SURGERY) - RENAL Hx Chronic Kidney Disease: Yes Hx Neurogenic Bladder: Yes - ENDOCRINE/METABOLIC Hx Diabetes Mellitus Type 2: Yes - HEMATOLOGICAL/ONCOLOGICAL Hx Cancer: No - INTEGUMENTARY Hx Dermatological Problems: Yes (CELLULITIS,LEFT VENOUS STASIS ULCER) Other/Comment: cellulitis left ankle wound, left foot red and +2 edema, foul smelling dng noted to left ankle wound - MUSCULOSKELETAL/RHEUMATOLOGICAL Hx Musculoskeletal Disorders: Yes - GASTROINTESTINAL Hx Gastrointestinal Disorders: Yes Hx Gastroesophageal Reflux: Yes Other/Comment: diaphragmatic hernia - GENITOURINARY/GYNECOLOGICAL Hx Reproductive Disorders: No - PSYCHIATRIC Hx Depression: Yes Hx Substance Use: No - SURGICAL HISTORY Hx Mastectomy: No - ANESTHESIA Hx Anesthesia: Yes Hx Anesthesia Reactions: No Hx Malignant Hyperthermia: No Meds Allergies/Adverse Reactions: Allergies Allergy/AdvReac Type Severity Reaction Status Date / Time banana Allergy RASH Verified 02/08/17 14:47 Influenza Virus Vaccines Allergy RASH Verified 02/08/17 14:47 kiwi Allergy RASH Verified 02/08/17 14:47 Penicillins Allergy RASH Verified 02/08/17 14:47 pneumococcal vaccine Allergy RASH Verified 02/08/17 14:47 strawberry Allergy RASH Verified 02/08/17 14:47 Sulfa (Sulfonamide Allergy RASH Verified 02/08/17 14:47 Antibiotics) tomato Allergy RASH Verified 02/08/17 14:47 - Medications Medications: Current Medications Albuterol/Ipratropium (Duoneb 3 Mg/0.5 Mg (3 Ml) Ud) 3 ml IH Q2H PRN PRN Reason: Shortness of Breath Arformoterol Tartrate (Brovana) 15 mcg IH BID [facility] Last Admin: 09/03/17 07:36 Dose: 15 mcg Ascorbic Acid (Vitamin C 500 Mg Tab) 500 mg PO DAILY [facility] Last Admin: 09/03/17 11:08 Dose: Not Given Budesonide (Pulmicort Respules) 0.5 mg IH BID [facility] Last Admin: 09/03/17 07:36 Dose: 0.5 mg Ferrous Sulfate (Feosol) 324 mg PO BID [facility] Last Admin: 09/03/17 11:06 Dose: Not Given Sodium Chloride (Sodium Chloride 0.9%) 1,000 mls @ 70 mls/hr IV .[id number] [facility] Last Admin: 09/02/17 17:20 Dose: 70 mls/hr Linezolid (Zyvox 600mg/300ml D5w) 600 mg in 300 mls @ 300 mls/hr IVPB Q12 [facility] Last Admin: 09/03/17 10:46 Dose: 300 mls/hr Insulin Human Regular (Humulin R Med) 0 units SC ACHS [facility] PRN Reason: Protocol Last Admin: 09/03/17 12:24 Dose: Not Given Montelukast Sodium (Singulair) 10 mg PO HS [facility] Last Admin: 09/02/17 22:32 Dose: Not Given Non-Formulary Medication (Folic Acid/Vit B Complex And C [Emma-Shereen Tablet]) 1 tab PO DAILY [facility] Nystatin (Nystatin Oral Susp) 5 ml PO QID [facility] Last Admin: 09/03/17 11:07 Dose: Not Given Ondansetron HCl (Zofran Inj) 4 mg IVP Q6H PRN PRN Reason: Nausea/Vomiting Oxycodone/Acetaminophen (Percocet 5/325 Mg Tab) 1 tab PO BID [facility] Stop: 09/06/17 10:01 Last Admin: 09/03/17 11:08 Dose: Not Given Pantoprazole Sodium (Protonix Inj) 40 mg IVP Q12 [facility] Last Admin: 09/03/17 10:46 Dose: 40 mg Pregabalin (Lyrica) 50 mg PO BID [facility] Last Admin: 09/03/17 11:07 Dose: Not Given Physical Exam - Constitutional Appears: Chronically Ill - Head Exam Head Exam: ATRAUMATIC, NORMOCEPHALIC - Eye Exam Eye Exam: EOMI, PERRL Pupil Exam: NORMAL ACCOMODATION, PERRL - ENT Exam ENT Exam: Mucous Membranes Moist, Normal External Ear Exam, TM's Normal Bilaterally Additional comments: oral thrush - Neck Exam Neck exam: Positive for: Full Rom, Normal Inspection - Respiratory Exam Respiratory Exam: Decreased Breath Sounds, Rhonchi - Cardiovascular Exam Cardiovascular Exam: REGULAR RHYTHM, RRR, +S1, +S2 - GI/Abdominal Exam GI & Abdominal Exam: Normal Bowel Sounds, Soft. absent: Distended, Tenderness - Extremities Exam Additional comments: Multiple LLE ulcers, chronic skin changes, areas of gangrene and mottling. - Back Exam Back exam: NORMAL INSPECTION - Neurological Exam Neurological exam: Alert Additional comments: AAO x 1-2, patient does use anything told to her recently to appear that she is more orientated than she really is. - Psychiatric Exam Psychiatric exam: Normal Affect, Normal Mood - Skin Skin Exam: Dry, Intact, Warm Results - Vital Signs Recent Vital Signs: Last Vital Signs Temp 98.4 F 09/03/17 14:59 Pulse 99 H 09/03/17 14:59 Resp 21 09/03/17 14:59 BP 130/66 09/03/17 14:59 Pulse Ox 96 09/03/17 14:59 - Labs Result Diagrams: 09/03/17 07:00 09/03/17 07:00 Assessment & Plan - Assessment and Plan (Free Text) Assessment: 82 yo female with multiple medical issues presenting from [facility] for vomiting and a question of hematochezia. The patient appears more cachetic to me compared to when I saw her last year. The patient still has the same issues with the left leg. Amputation of the left leg remains the recommendation for care from her prior hospitalizations of the past 2 years. In the past, she was able to tolerate meropenem after a desensitization protocol was followed. On Cipro and Zyvox as part of the patient's regimen for the multiple organisms grown on cultures from last hospitalization. Cultures from last hospitalization a week ago showing Pseudomonas, VRE, and Staph Aureus (MRSA). Continue on Cipro and Zyvox. Poor overall prognosis for the patient. The patient has stated that she wants to remain Full Code status. Supportive care. Thank you for allowing me to participate in the care of the patient, we will follow with you.
--- NOTE | 2017-09-03 16:59 | CP.PCM.CON ---
History of Present Illness - History of Present Illness History of Present Illness: Podiatry Consult note: Dr. Meek/Dr. Gilbert 82 year female pt seen at bedside today after consultation for evaluation of left ankle ulceration. Patient reports that she is not feeling to well today. She admits to having pain in the left ankle at the site of the wound. Pt is known to Dr. Meek/[facility] service and was recently discharged on 08/30/17. Denies F/N/V/C/SOB/CP/headache. Has no other pedal complaints. Review of Systems - Review of Systems All systems: reviewed and no additional remarkable complaints except (per HPI) 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 - NEUROLOGICAL Hx Paralysis: No - HEENT Hx HEENT Problems: Yes Hx Cataracts: Yes (BILATERAL SURGERY) - RENAL Hx Chronic Kidney Disease: Yes Hx Neurogenic Bladder: Yes - ENDOCRINE/METABOLIC Hx Diabetes Mellitus Type 2: Yes - HEMATOLOGICAL/ONCOLOGICAL Hx Cancer: No - INTEGUMENTARY Hx Dermatological Problems: Yes (CELLULITIS,LEFT VENOUS STASIS ULCER) Other/Comment: cellulitis left ankle wound, left foot red and +2 edema, foul smelling dng noted to left ankle wound - MUSCULOSKELETAL/RHEUMATOLOGICAL Hx Musculoskeletal Disorders: Yes - GASTROINTESTINAL Hx Gastrointestinal Disorders: Yes Hx Gastroesophageal Reflux: Yes Other/Comment: diaphragmatic hernia - GENITOURINARY/GYNECOLOGICAL Hx Reproductive Disorders: No - PSYCHIATRIC Hx Depression: Yes Hx Substance Use: No - SURGICAL HISTORY Hx Mastectomy: No - ANESTHESIA Hx Anesthesia: Yes Hx Anesthesia Reactions: No Hx Malignant Hyperthermia: No Meds Allergies/Adverse Reactions: Allergies Allergy/AdvReac Type Severity Reaction Status Date / Time banana Allergy RASH Verified 02/08/17 14:47 Influenza Virus Vaccines Allergy RASH Verified 02/08/17 14:47 kiwi Allergy RASH Verified 02/08/17 14:47 Penicillins Allergy RASH Verified 02/08/17 14:47 pneumococcal vaccine Allergy RASH Verified 02/08/17 14:47 strawberry Allergy RASH Verified 02/08/17 14:47 Sulfa (Sulfonamide Allergy RASH Verified 02/08/17 14:47 Antibiotics) tomato Allergy RASH Verified 02/08/17 14:47 - Medications Medications: Current Medications Albuterol/Ipratropium (Duoneb 3 Mg/0.5 Mg (3 Ml) Ud) 3 ml IH Q2H PRN PRN Reason: Shortness of Breath Arformoterol Tartrate (Brovana) 15 mcg IH BID [facility] Last Admin: 09/03/17 07:36 Dose: 15 mcg Ascorbic Acid (Vitamin C 500 Mg Tab) 500 mg PO DAILY [facility] Last Admin: 09/03/17 11:08 Dose: Not Given Budesonide (Pulmicort Respules) 0.5 mg IH BID [facility] Last Admin: 09/03/17 07:36 Dose: 0.5 mg Ferrous Sulfate (Feosol) 324 mg PO BID [facility] Last Admin: 09/03/17 11:06 Dose: Not Given Sodium Chloride (Sodium Chloride 0.9%) 1,000 mls @ 70 mls/hr IV .[id number] [facility] Last Admin: 09/03/17 16:18 Dose: 70 mls/hr Linezolid (Zyvox 600mg/300ml D5w) 600 mg in 300 mls @ 300 mls/hr IVPB Q12 [facility] Last Admin: 09/03/17 10:46 Dose: 300 mls/hr Insulin Human Regular (Humulin R Med) 0 units SC ACHS [facility] PRN Reason: Protocol Last Admin: 09/03/17 12:24 Dose: Not Given Montelukast Sodium (Singulair) 10 mg PO HS [facility] Last Admin: 09/02/17 22:32 Dose: Not Given Multi-Ingredient Cream (Hydrocerin Cream) 0 ea TOP BID [facility] Non-Formulary Medication (Folic Acid/Vit B Complex And C [Emma-Shereen Tablet]) 1 tab PO DAILY [facility] Nystatin (Nystatin Oral Susp) 5 ml PO QID [facility] Last Admin: 09/03/17 16:17 Dose: 5 ml Ondansetron HCl (Zofran Inj) 4 mg IVP Q6H PRN PRN Reason: Nausea/Vomiting Oxycodone/Acetaminophen (Percocet 5/325 Mg Tab) 1 tab PO BID [facility] Stop: 09/06/17 10:01 Last Admin: 09/03/17 11:08 Dose: Not Given Pantoprazole Sodium (Protonix Inj) 40 mg IVP Q12 [facility] Last Admin: 09/03/17 10:46 Dose: 40 mg Pregabalin (Lyrica) 50 mg PO BID [facility] Last Admin: 09/03/17 11:07 Dose: Not Given Physical Exam - Constitutional Appears: Well, Non-toxic, No Acute Distress - Extremities Exam Additional comments: Left lower extremity focused exam: VASC- DP and PT pulses are faintly palpable, CFT < 5 sec to all digits, no pitting or non-pitting edema noted DERM- medial ankle wound with partial thickness measuring approximately 8 cm x 5 cm x .3 cm with granular base. Mild serous drainage noted to the wound. No tracking. Dior-wound skin is fully epithelialized with some hyperpigmentation noted to periwound. Wound borders are hyperkeratotic. No purulence noted, no probe to bone, no malodor, no erythema, no clinical suspicion of active infection NEURO- unable to obtain due to patient mental status ORTHO- mild tenderness to palpation of ankle wound - Neurological Exam Neurological exam: Alert - Psychiatric Exam Psychiatric exam: Normal Affect, Normal Mood Results - Vital Signs Recent Vital Signs: Last Vital Signs Temp 98.4 F 09/03/17 14:59 Pulse 99 H 09/03/17 14:59 Resp 21 09/03/17 14:59 BP 130/66 09/03/17 14:59 Pulse Ox 96 09/03/17 14:59 - Labs Result Diagrams: 09/03/17 07:00 09/03/17 07:00 Assessment & Plan - Assessment and Plan (Free Text) Assessment: 82 year old female with medial ankle ulceration secondary to chronic venous insufficiency Plan: Patient seen and evaluated seen at bedside with attending Dr. Meek Labs, vitals and charts reviewed - afebrile WBC 12.3 Wound cleaned with saline and dressing applied using xeroform, ABD, DSD Patient is stable from podiatry standpoint Will continue to follow and perform local wound care Rx Eucerin and Lotrimin to be applied daily to plantar feet Rx Multipodus boots to be worn at all times in bed Will continue to monitor patient while in-house
[2017-09-03] MEDS: Hydrocerin(120 gm) TOP SCH (18:43)
[2017-09-03] MEDS ORDERED: Ciprofloxacin 400mg/200ml D5W 400 MG/200 ML BAG IVPB SCH (22:00)
[2017-09-04 07:03] LABS: ALB/GLOB RATIO 0.9 (1.1-1.8); ALBUMIN 2.7 g/dL (3.0-4.8); CALCIUM 7.8 mg/dL (8.4-10.5)
[2017-09-04 07:06] LABS: EOS % 0.4 % (1.5-5.0); GRAN # 8.87 (1.4-6.5); GRAN % 91.8 % (50.0-68.0); HEMOGLOBIN 13.2 g/dL (12.0-16.0); LYMPH # 0.4 (1.2-3.4); LYMPH % 4.6 % (22.0-35.0); MEAN CELL VOLUME 87.9 fl (80.0-105.0); MEAN CORPUSCULAR HEMOGLOBIN 26.6 pg (25.0-35.0); MEAN CORPUSCULAR HGB CONC 30.3 g/dl (31.0-37.0); MONO # 0.3 (0.1-0.6); MONO % 3.2 % (1.0-6.0); PLATELET COUNT 94 10^3/uL (120.0-450.0); RBC 4.96 10^6/uL (3.5-6.1); RED CELL DISTRIBUTION WIDTH 21.1 % (11.5-14.5); WHITE BLOOD COUNT 9.7 10^3/ul (4.5-11.0)
[2017-09-04] MEDS: Arformoterol 15 mcg/2 ml Inh Sol IH SCH ×2 (07:53→20:11)
[2017-09-04] MEDS: Budesonide 0.5 mg/2 ml Inhal Susp UD IH SCH ×2 (07:53→20:12)
[2017-09-04 08:25] VITALS: RESP 20
[2017-09-04] MEDS ORDERED: Multivitamin Vitamin B Complex (Nephro-Vite) Tab PO SCH (10:00)
--- NOTE | 2017-09-04 10:03 | CP.PCM.PN ---
Subjective - Date & Time of Evaluation Date of Evaluation: 09/04/17 Time of Evaluation: 10:01 - Subjective Subjective: Podiatry Progress Note: Dr. Meek/Dr. Gilbert 82 y/o female seen at bedside today for left medial ankle ulceration. Patient reports that she feels good today. She admits to having pain in the left ankle at the site of the wound, more so when it rubs or touches against anything. Denies F/N/V/C/SOB/CP/headache. Has no other pedal complaints. Objective - Vital Signs/Intake and Output Vital Signs (last 24 hours): Temp Pulse Resp BP Pulse Ox 97.5 F L 90 20 129/76 96 09/04/17 07:00 09/04/17 07:00 09/04/17 07:00 09/04/17 07:00 09/04/17 07:00 Intake and Output: 09/04/17 09/04/17 06:59 18:59 Intake Total 240 Balance 240 - Medications Medications: Current Medications Albuterol/Ipratropium (Duoneb 3 Mg/0.5 Mg (3 Ml) Ud) 3 ml IH Q2H PRN PRN Reason: Shortness of Breath Arformoterol Tartrate (Brovana) 15 mcg IH BID [facility] Last Admin: 09/04/17 07:53 Dose: 15 mcg Ascorbic Acid (Vitamin C 500 Mg Tab) 500 mg PO DAILY [facility] Last Admin: 09/03/17 11:08 Dose: Not Given Budesonide (Pulmicort Respules) 0.5 mg IH BID [facility] Last Admin: 09/04/17 07:53 Dose: 0.5 mg Ferrous Sulfate (Feosol) 324 mg PO BID [facility] Last Admin: 09/03/17 18:43 Dose: 324 mg Sodium Chloride (Sodium Chloride 0.9%) 1,000 mls @ 70 mls/hr IV .[id number] [facility] Last Admin: 09/03/17 16:18 Dose: 70 mls/hr Linezolid (Zyvox 600mg/300ml D5w) 600 mg in 300 mls @ 300 mls/hr IVPB Q12 [facility] Last Admin: 09/03/17 22:02 Dose: 300 mls/hr Meropenem 250 mg/ Sodium (Chloride) 100 mls @ 100 mls/hr IVPB Q12H [facility] Last Admin: 09/04/17 06:35 Dose: 100 mls/hr Insulin Human Regular (Humulin R Med) 0 units SC ACHS [facility] PRN Reason: Protocol Last Admin: 09/03/17 22:01 Dose: Not Given Montelukast Sodium (Singulair) 10 mg PO HS [facility] Last Admin: 09/03/17 22:02 Dose: 10 mg Multi-Ingredient Cream (Hydrocerin Cream) 0 ea TOP BID [facility] Last Admin: 09/03/17 18:43 Dose: 1 applic Nystatin (Nystatin Oral Susp) 5 ml PO QID [facility] Last Admin: 09/03/17 22:01 Dose: 5 ml Ondansetron HCl (Zofran Inj) 4 mg IVP Q6H PRN PRN Reason: Nausea/Vomiting Oxycodone/Acetaminophen (Percocet 5/325 Mg Tab) 1 tab PO BID [facility] Stop: 09/06/17 10:01 Last Admin: 09/03/17 18:43 Dose: 1 tab Pantoprazole Sodium (Protonix Inj) 40 mg IVP Q12 [facility] Last Admin: 09/03/17 22:01 Dose: 40 mg Pregabalin (Lyrica) 50 mg PO BID [facility] Last Admin: 09/03/17 18:42 Dose: 50 mg Vitamin B Complex/Vit C/Folic Acid (Nephro-Shereen) 1 tab PO DAILY [facility] - Labs Labs: 09/04/17 06:15 09/04/17 06:15 PT 26.2 SECONDS (9.4-12.5) H 09/02/17 16:41 INR 2.26 (0.93-1.08) H 09/02/17 16:41 APTT 47.1 Seconds (25.1-36.5) H 09/02/17 16:41 - Constitutional Appears: Well, Non-toxic, No Acute Distress - Extremities Exam Additional comments: Left lower extremity focused exam: VASC- DP and PT pulses are faintly palpable, CFT < 5 sec to all digits, no pitting or non-pitting edema noted DERM- medial ankle wound with partial thickness measuring approximately 8 cm x 5 cm x .3 cm with granular base. Mild serosanguinous drainage noted to the wound. No tracking or undermining noted. Dior-wound skin is fully epithelialized with some hyperpigmentation noted to periwound. Wound borders are hyperkeratotic. No purulence noted, no probe to bone, no malodor, no erythema, no clinical suspicion of active infection NEURO- unable to obtain due to patient mental status ORTHO- mild tenderness to palpation of ankle wound - Neurological Exam Neurological Exam: Alert, Awake, Oriented x3 - Psychiatric Exam Psychiatric exam: Normal Affect, Normal Mood Assessment and Plan - Assessment and Plan (Free Text) Assessment: 82 year old female with medial ankle ulceration secondary to chronic venous insufficiency Plan: Patient seen and evaluated Discussed plan with attending Dr. Meek Labs, vitals and charts reviewed - afebrile WBC 9.7 Wound cleaned with saline and dressing applied using xeroform, ABD, DSD Patient is stable from podiatry standpoint Will continue to follow and perform local wound care Continue Eucerin and Lotrimin lotions, to be applied daily to plantar feet Multipodus boots to be worn at all times in bed, please apply 2nd boot to RLE Will continue to monitor patient while in-house
[2017-09-04] MEDS: Insulin Reg-MEDIUM-Coverage SC SCH ×2 (10:19→18:31)
[2017-09-04] MEDS: Hydrocerin(120 gm) TOP SCH ×2 (10:19→18:32)
[2017-09-04] MEDS: Oxycodone/Acetaminophen 5/325 mg Tab PO SCH ×2 (10:21→18:34)
[2017-09-04] MEDS: Nystatin 100,000 Units/ml Oral Susp 5 ml UD PO SCH ×3 (10:21→18:34)
[2017-09-04] MEDS: Linezolid 600 mg in D5W 300 ml 600 MG/300 ML BAG IVPB SCH (10:21)
[2017-09-04] MEDS: Nystatin 100,000 Units/gm Topical Pow(15 gm) TOP SCH ×2 (12:05→18:36)
--- NOTE | 2017-09-04 13:02 | CP.PCM.PN ---
Subjective - Date & Time of Evaluation Date of Evaluation: 09/04/17 Time of Evaluation: 13:00 - Subjective Subjective: 82 year old resident of [facility] with history of DM, A Fib, COPD, and chronic LLE wo was sent to ED PMHx: A Fib on Eliquis,hypothyroidism, DM, HTN, COPD and chronin LLE PSH: pacemaker Social History: Non smoker, no alcohol or drug use.Resident of [facility], wheelchair dependent. Family History: DM Advance Care Planing: The patient is full code status: Review of Systems: As per HPI, otherwise negative. Objective - Vital Signs/Intake and Output Vital Signs (last 24 hours): Temp Pulse Resp BP Pulse Ox 97.5 F L 90 20 129/76 96 09/04/17 07:00 09/04/17 07:00 09/04/17 07:00 09/04/17 07:00 09/04/17 07:00 Intake and Output: 09/04/17 09/04/17 06:59 18:59 Intake Total 240 Balance 240 - Medications Medications: Current Medications Albuterol/Ipratropium (Duoneb 3 Mg/0.5 Mg (3 Ml) Ud) 3 ml IH Q2H PRN PRN Reason: Shortness of Breath Arformoterol Tartrate (Brovana) 15 mcg IH BID [facility] Last Admin: 09/04/17 07:53 Dose: 15 mcg Ascorbic Acid (Vitamin C 500 Mg Tab) 500 mg PO DAILY [facility] Last Admin: 09/04/17 10:21 Dose: 500 mg Budesonide (Pulmicort Respules) 0.5 mg IH BID [facility] Last Admin: 09/04/17 07:53 Dose: 0.5 mg Ferrous Sulfate (Feosol) 324 mg PO BID [facility] Last Admin: 09/04/17 10:19 Dose: 324 mg Sodium Chloride (Sodium Chloride 0.9%) 1,000 mls @ 70 mls/hr IV .[id number] [facility] Last Admin: 09/03/17 16:18 Dose: 70 mls/hr Linezolid (Zyvox 600mg/300ml D5w) 600 mg in 300 mls @ 300 mls/hr IVPB Q12 [facility] Last Admin: 09/04/17 10:21 Dose: 300 mls/hr Meropenem 250 mg/ Sodium (Chloride) 100 mls @ 100 mls/hr IVPB Q12H [facility] Last Admin: 09/04/17 06:35 Dose: 100 mls/hr Insulin Human Regular (Humulin R Med) 0 units SC ACHS [facility] PRN Reason: Protocol Last Admin: 09/04/17 10:19 Dose: Not Given Montelukast Sodium (Singulair) 10 mg PO HS [facility] Last Admin: 09/03/17 22:02 Dose: 10 mg Multi-Ingredient Cream (Hydrocerin Cream) 0 ea TOP BID [facility] Last Admin: 09/04/17 10:19 Dose: 1 applic Nystatin (Nystatin Oral Susp) 5 ml PO QID [facility] Last Admin: 09/04/17 10:21 Dose: 5 ml Nystatin (Nystop Topical Powder) 0 gm TOP TID [facility] Ondansetron HCl (Zofran Inj) 4 mg IVP Q6H PRN PRN Reason: Nausea/Vomiting Oxycodone/Acetaminophen (Percocet 5/325 Mg Tab) 1 tab PO BID [facility] Stop: 09/06/17 10:01 Last Admin: 09/04/17 10:21 Dose: 1 tab Pantoprazole Sodium (Protonix Inj) 40 mg IVP Q12 [facility] Last Admin: 09/04/17 10:17 Dose: 40 mg Pregabalin (Lyrica) 50 mg PO BID [facility] Last Admin: 09/04/17 10:20 Dose: 50 mg Vitamin B Complex/Vit C/Folic Acid (Nephro-Shereen) 1 tab PO DAILY [facility] Last Admin: 09/04/17 10:20 Dose: 1 tab - Labs Labs: 09/04/17 06:15 09/04/17 06:15 PT 26.2 SECONDS (9.4-12.5) H 09/02/17 16:41 INR 2.26 (0.93-1.08) H 09/02/17 16:41 APTT 47.1 Seconds (25.1-36.5) H 09/02/17 16:41 - Constitutional Appears: No Acute Distress, Chronically Ill - Eye Exam Eye Exam: Normal appearance, PERRL - ENT Exam ENT Exam: Mucous Membranes Moist - Neck Exam Neck Exam: Normal Inspection - Respiratory Exam Respiratory Exam: Decreased Breath Sounds - Cardiovascular Exam Cardiovascular Exam: Irregular Rhythm, +S1, +S2 - GI/Abdominal Exam GI & Abdominal Exam: Soft, Normal Bowel Sounds - Extremities Exam Extremities Exam: Pedal Edema Additional comments: chronic LLE celultis - Neurological Exam Neurological Exam: Alert Additional comments: oriented to self and place - Skin Skin Exam: Dry, Pallor Assessment and Plan - Assessment and Plan (Free Text) Assessment: 82 year old female with history of COPD, DM, A Fib, sepsis, chronic LLE cellulitis who was admitted with Patent is lethargic,sleeping on and off. Offers no complaints. Her daughter Roseallen at beside. Daughter and I had a lengthy conversation about her mother's over all decline in health. Goals of care also discussed. Daughter has been considering hospice care. Daughter was already in conversation with SW at [facility] regarding this topic. Daughter states she is having a hard time accepting that it is time for hospice. We discussed sending her mother back to [facility] with palliative care and then transitioning over hospice. Explained that her mothers health is steadily declining and that she is not benefitting from frequent hospitalizations. daughter verbalizes understanding of this. Burdens of aggressive resuscitation also discusses. Encouraged daughter to speak with her mother about reinstating DNR/DNI. Plan: Goals of care and advance care planning Patient to [facility]. Family to initiate palliative care at [facility]
--- NOTE | 2017-09-04 13:31 | CP.PCM.CON ---
History of Present Illness - History of Present Illness History of Present Illness: 82 year old resident of [facility] with history of DM, A Fib, COPD, and chronic LLE who presented with nausea and vomiting. She denied fever, chills, SOB, chest pain, abdominal pain, change in bowel or urinary habits. She was recently admitted 08/30/17 with AMS, UTI and pneumonia. Chest x ray showed a chronic diffuse infiltrate in the right lung that is unchanged and improvement in the NEISHA infiltrate. Labs, WBC 12.3, BUN 76, Creat 1.7, Calcium 8.1, Phos 4.8, Mag 2.4, Total Bilrubin 1.6. PMHx: A Fib on Eliquis,hypothyroidism, DM, HTN, COPD and chronin LLE PSH: pacemaker Social History: Non smoker, no alcohol or drug use.Resident of [facility], wheelchair dependent. Family History: DM Advance Care Planing: The patient is full code status: Review of Systems: As per HPI, otherwise negative. 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 - NEUROLOGICAL Hx Paralysis: No - HEENT Hx HEENT Problems: Yes Hx Cataracts: Yes (BILATERAL SURGERY) - RENAL Hx Chronic Kidney Disease: Yes Hx Neurogenic Bladder: Yes - ENDOCRINE/METABOLIC Hx Diabetes Mellitus Type 2: Yes - HEMATOLOGICAL/ONCOLOGICAL Hx Cancer: No - INTEGUMENTARY Hx Dermatological Problems: Yes (CELLULITIS,LEFT VENOUS STASIS ULCER) Other/Comment: cellulitis left ankle wound, left foot red and +2 edema, foul smelling dng noted to left ankle wound - MUSCULOSKELETAL/RHEUMATOLOGICAL Hx Musculoskeletal Disorders: Yes - GASTROINTESTINAL Hx Gastrointestinal Disorders: Yes Hx Gastroesophageal Reflux: Yes Other/Comment: diaphragmatic hernia - GENITOURINARY/GYNECOLOGICAL Hx Reproductive Disorders: No - PSYCHIATRIC Hx Depression: Yes Hx Substance Use: No - SURGICAL HISTORY Hx Mastectomy: No - ANESTHESIA Hx Anesthesia: Yes Hx Anesthesia Reactions: No Hx Malignant Hyperthermia: No Meds Home Medications: Home Medication List Medication Instructions Recorded Confirmed Type Meropenem [Merrem IV] 250 mg IVPB Q12H 30 Days vial 09/04/17 Rx Allergies/Adverse Reactions: Allergies Allergy/AdvReac Type Severity Reaction Status Date / Time banana Allergy RASH Verified 02/08/17 14:47 Influenza Virus Vaccines Allergy RASH Verified 02/08/17 14:47 kiwi Allergy RASH Verified 02/08/17 14:47 Penicillins Allergy RASH Verified 02/08/17 14:47 pneumococcal vaccine Allergy RASH Verified 02/08/17 14:47 strawberry Allergy RASH Verified 02/08/17 14:47 Sulfa (Sulfonamide Allergy RASH Verified 02/08/17 14:47 Antibiotics) tomato Allergy RASH Verified 02/08/17 14:47 - Medications Medications: Current Medications Albuterol/Ipratropium (Duoneb 3 Mg/0.5 Mg (3 Ml) Ud) 3 ml IH Q2H PRN PRN Reason: Shortness of Breath Arformoterol Tartrate (Brovana) 15 mcg IH BID [facility] Last Admin: 09/04/17 07:53 Dose: 15 mcg Ascorbic Acid (Vitamin C 500 Mg Tab) 500 mg PO DAILY [facility] Last Admin: 09/04/17 10:21 Dose: 500 mg Budesonide (Pulmicort Respules) 0.5 mg IH BID [facility] Last Admin: 09/04/17 07:53 Dose: 0.5 mg Ferrous Sulfate (Feosol) 324 mg PO BID [facility] Last Admin: 09/04/17 10:19 Dose: 324 mg Sodium Chloride (Sodium Chloride 0.9%) 1,000 mls @ 70 mls/hr IV .[id number] [facility] Last Admin: 09/03/17 16:18 Dose: 70 mls/hr Linezolid (Zyvox 600mg/300ml D5w) 600 mg in 300 mls @ 300 mls/hr IVPB Q12 [facility] Last Admin: 09/04/17 10:21 Dose: 300 mls/hr Meropenem 250 mg/ Sodium (Chloride) 100 mls @ 100 mls/hr IVPB Q12H [facility] Last Admin: 09/04/17 06:35 Dose: 100 mls/hr Insulin Human Regular (Humulin R Med) 0 units SC ACHS [facility] PRN Reason: Protocol Last Admin: 09/04/17 10:19 Dose: Not Given Montelukast Sodium (Singulair) 10 mg PO HS [facility] Last Admin: 09/03/17 22:02 Dose: 10 mg Multi-Ingredient Cream (Hydrocerin Cream) 0 ea TOP BID [facility] Last Admin: 09/04/17 10:19 Dose: 1 applic Nystatin (Nystatin Oral Susp) 5 ml PO QID [facility] Last Admin: 09/04/17 10:21 Dose: 5 ml Nystatin (Nystop Topical Powder) 0 gm TOP TID [facility] Ondansetron HCl (Zofran Inj) 4 mg IVP Q6H PRN PRN Reason: Nausea/Vomiting Oxycodone/Acetaminophen (Percocet 5/325 Mg Tab) 1 tab PO BID [facility] Stop: 09/06/17 10:01 Last Admin: 09/04/17 10:21 Dose: 1 tab Pantoprazole Sodium (Protonix Inj) 40 mg IVP Q12 [facility] Last Admin: 09/04/17 10:17 Dose: 40 mg Pregabalin (Lyrica) 50 mg PO BID [facility] Last Admin: 09/04/17 10:20 Dose: 50 mg Vitamin B Complex/Vit C/Folic Acid (Nephro-Shereen) 1 tab PO DAILY [facility] Last Admin: 09/04/17 10:20 Dose: 1 tab Physical Exam - Constitutional Appears: Chronically Ill - Head Exam Head Exam: NORMAL INSPECTION - Eye Exam Eye Exam: Normal appearance, PERRL - ENT Exam ENT Exam: Mucous Membranes Moist - Neck Exam Neck exam: Positive for: Normal Inspection - Respiratory Exam Respiratory Exam: Decreased Breath Sounds, NORMAL BREATHING PATTERN - Cardiovascular Exam Cardiovascular Exam: Irregular Rhythm, +S1, +S2 - GI/Abdominal Exam GI & Abdominal Exam: Normal Bowel Sounds, Soft - Extremities Exam Extremities exam: Positive for: pedal edema Additional comments: chronic LLE cellulitis - Neurological Exam Neurological exam: Alert Additional comments: oriented to self and place - Skin Skin Exam: Dry, Pallor - Additional Findings Additional findings: palliative performance scale rating 40 % Results - Vital Signs Recent Vital Signs: Last Vital Signs Temp 97.5 F L 09/04/17 07:00 Pulse 90 09/04/17 07:00 Resp 20 09/04/17 07:00 BP 129/76 09/04/17 07:00 Pulse Ox 96 09/04/17 07:00 - Labs Result Diagrams: 09/04/17 06:15 09/04/17 06:15 Labs: Laboratory Results - last 24 hr 09/03/17 09/03/17 09/04/17 15:53 21:00 06:15 WBC 9.7 D RBC 4.96 Hgb 13.2 Hct 43.6 MCV 87.9 MCH 26.6 MCHC 30.3 L RDW 21.1 H Plt Count 94 L Gran % 91.8 H Lymph % (Auto) 4.6 L [place] % (Auto) 3.2 Eos % (Auto) 0.4 L Baso % (Auto) 0.0 Gran # 8.87 H Lymph # (Auto) 0.4 L [place] # (Auto) 0.3 Eos # (Auto) 0.0 Baso # (Auto) 0.00 Sodium Potassium Chloride Carbon Dioxide Anion Gap BUN Creatinine Est GFR ( Amer) Est GFR (Non-Af Amer) POC Glucose (mg/dL) 134 H 131 H Random Glucose Calcium Total Bilirubin AST ALT Alkaline Phosphatase Total Protein Albumin Globulin Albumin/Globulin Ratio 09/04/17 09/04/17 09/04/17 06:15 07:06 11:04 WBC RBC Hgb Hct MCV MCH MCHC RDW Plt Count Gran % Lymph % (Auto) [place] % (Auto) Eos % (Auto) Baso % (Auto) Gran # Lymph # (Auto) [place] # (Auto) Eos # (Auto) Baso # (Auto) Sodium 143 Potassium 3.6 Chloride 108 H Carbon Dioxide 24 Anion Gap 15 BUN 60 H Creatinine 1.3 H Est GFR ( Amer) 47 Est GFR (Non-Af Amer) 39 POC Glucose (mg/dL) 120 H 122 H Random Glucose 118 H Calcium 7.8 L Total Bilirubin 1.7 H AST 26 ALT 36 Alkaline Phosphatase 68 Total Protein 5.8 Albumin 2.7 L Globulin 3.1 Albumin/Globulin Ratio 0.9 L Assessment & Plan - Assessment and Plan (Free Text) Assessment: 82 year old female with history of COPD, DM, A Fib, sepsis, chronic LLE cellulitis who was admitted with nausea, vomiting, dehydration, leukocytosis. Patent is lethargic,sleeping on and off. Offers no complaints. Her daughter Roseallen at beside. Daughter and I had a lengthy conversation about her mother's over all decline in health. Goals of care also discussed. Daughter has been considering hospice care. Daughter was already in conversation with SW at [facility] regarding this topic. Daughter states she is having a hard time accepting that it is time for hospice. We discussed sending her mother back to [facility] with palliative care and then transitioning over hospice. Explained that her mothers health is steadily declining and that she is not benefitting from frequent hospitalizations. daughter verbalizes understanding of this. Burdens of aggressive resuscitation also discusses. Encouraged daughter to speak with her mother about reinstating DNR/DNI. Time spent with family in goals of care and end of life counseling, 40 minutes Plan: Goals of care and advance care planning Patient to return to [facility] today. Family to initiate palliative care at [facility]
--- NOTE | 2017-09-04 14:50 | CP.PCM.DIS ---
<Nikhil Meneses - Last Filed: 09/04/17 14:34> Provider - Provider Date of Admission: 09/03/17 14:09 Attending physician: Don Davey MD Primary care physician: Sonny Sparks MD Consults: ID: Go Palliative: [place] Podiatry: [place] Time Spent in preparation of Discharge (in minutes): 45 Hospital Course - Lab Results Lab Results: Most Recent Lab Values WBC 9.7 10^3/ul (4.5-11.0) D 09/04/17 06:15 RBC 4.96 10^6/uL (3.5-6.1) 09/04/17 06:15 Hgb 13.2 g/dL (12.0-16.0) 09/04/17 06:15 Hct 43.6 % (36.0-48.0) 09/04/17 06:15 MCV 87.9 fl (80.0-105.0) 09/04/17 06:15 MCH 26.6 pg (25.0-35.0) 09/04/17 06:15 MCHC 30.3 g/dl (31.0-37.0) L 09/04/17 06:15 RDW 21.1 % (11.5-14.5) H 09/04/17 06:15 Plt Count 94 10^3/uL (120.0-450.0) L 09/04/17 06:15 Gran % 91.8 % (50.0-68.0) H 09/04/17 06:15 Lymph % (Auto) 4.6 % (22.0-35.0) L 09/04/17 06:15 [place] % (Auto) 3.2 % (1.0-6.0) 09/04/17 06:15 Eos % (Auto) 0.4 % (1.5-5.0) L 09/04/17 06:15 Baso % (Auto) 0.0 % (0.0-3.0) 09/04/17 06:15 Gran # 8.87 (1.4-6.5) H 09/04/17 06:15 Lymph # (Auto) 0.4 (1.2-3.4) L 09/04/17 06:15 [place] # (Auto) 0.3 (0.1-0.6) 09/04/17 06:15 Eos # (Auto) 0.0 (0.0-0.7) 09/04/17 06:15 Baso # (Auto) 0.00 K/mm3 (0.0-2.0) 09/04/17 06:15 Neutrophils % (Manual) 94 % (50.0-70.0) H 09/02/17 16:41 Band Neutrophils % 2 % (0-2) 09/02/17 16:41 Lymphocytes % (Manual) 3 % (22.0-35.0) L 09/02/17 16:41 Monocytes % (Manual) 1 % (1.0-6.0) 09/02/17 16:41 Toxic Granulation 2+ 09/02/17 16:41 Platelet Evaluation Normal (NORMAL) 09/02/17 16:41 Hypochromasia 2+ 09/02/17 16:41 Target Cells 2+ 09/02/17 16:41 Rouleaux 2+ 09/02/17 16:41 PT 26.2 SECONDS (9.4-12.5) H 09/02/17 16:41 INR 2.26 (0.93-1.08) H 09/02/17 16:41 APTT 47.1 Seconds (25.1-36.5) H 09/02/17 16:41 Sodium 143 mmol/L (132-148) 09/04/17 06:15 Potassium 3.6 mmol/L (3.6-5.0) 09/04/17 06:15 Chloride 108 mmol/L (98-107) H 09/04/17 06:15 Carbon Dioxide 24 mmol/L (21-33) 09/04/17 06:15 Anion Gap 15 (10-20) 09/04/17 06:15 BUN 60 mg/dL (7-21) H 09/04/17 06:15 Creatinine 1.3 mg/dl (0.7-1.2) H 09/04/17 06:15 Est GFR ( Amer) 47 09/04/17 06:15 Est GFR (Non-Af Amer) 39 09/04/17 06:15 POC Glucose (mg/dL) 122 mg/dL (65-110) H 09/04/17 11:04 Random Glucose 118 mg/dL (70-110) H 09/04/17 06:15 Calcium 7.8 mg/dL (8.4-10.5) L 09/04/17 06:15 Phosphorus 4.8 mg/dL (2.5-4.5) H 09/02/17 16:41 Magnesium 2.4 mg/dL (1.7-2.2) H 09/02/17 16:41 Total Bilirubin 1.7 mg/dL (0.2-1.3) H 09/04/17 06:15 AST 26 U/L (14-36) 09/04/17 06:15 ALT 36 U/L (7-56) 09/04/17 06:15 Alkaline Phosphatase 68 U/L (38-126) 09/04/17 06:15 Troponin I 0.02 ng/mL D 09/02/17 16:41 Total Protein 5.8 g/dL (5.8-8.3) 09/04/17 06:15 Albumin 2.7 g/dL (3.0-4.8) L 09/04/17 06:15 Globulin 3.1 gm/dL 09/04/17 06:15 Albumin/Globulin Ratio 0.9 (1.1-1.8) L 09/04/17 06:15 Procalcitonin 0.09 NG/ML (0.19-0.49) L 09/03/17 07:00 Blood Type A POSITIVE 09/02/17 16:41 Antibody Screen Negative 09/02/17 16:41 BBK History Checked Patient has bt 09/02/17 16:41 - Hospital Course Hospital Course: Patient is a 82 year old female PMHx of diabetes, A-fib (On Eliquis), Hypothyroidism, chronic left leg swelling/cellulitis, and COPD who was brought from [facility] for evaluation and treatment of nausea and vomiting. Patient was recently discharged on 08/30/2017 after being admitted for AMS. Patient admitted for nausea, vomiting, possible upper GI bleed, leukocytosis, and ARIEL. Eliquis was held. GI was consulted due to nausea and vomiting with coffee ground emesis that had resolved spontaneously without drop in Hgb. GI stated that urgent EGD not needed and bleed was likely due to esophagitis vs heather dorman. Patient was given Nystatin for mild oral thrush. Patient had completed 3 of 35 days of IV abx at [facility] for pneumonia and wounds cultures from last admission: left leg (staph aureus), left thigh (VRE, pseudomonas), and left ankle (pseudomonas, MRSA, and coag negative staph). CXR showed chronic diffuse infiltrate in the right lung that was unchanged and focal infiltrate in the upper lobe that had improved. Procalcitonin was 0.09. ID was consulted. Patient was continued on Zyvox, however ciprofloxacin was discontinued due to prolonged QTc and Merrem was started instead. Today, patient was seen and examined at bedside. Palliative care was consulted and spoke to patient and family. The family agreed to have patient transferred back to [facility] and initiate palliative care. As patient was medically stable, she was discharged to [facility] for continued IV abx and wound care. All medications were reconciled. Discharge Diagnoses - Nausea/Vomiting - Possible Upper GI bleed - Chronic LLE ulcers - PNA - ARIEL - Oral candidiasis Discharge Exam - Head Exam Head Exam: NORMAL INSPECTION - Eye Exam Eye Exam: Normal appearance - ENT Exam ENT Exam: Normal Exam - Neck Exam Neck exam: Normal Inspection - Respiratory Exam Respiratory Exam: Rhonchi (right). absent: Decreased Breath Sounds, Clear to PA & Lateral, Rales, Wheezes, Respiratory Distress - Cardiovascular Exam Cardiovascular Exam: RRR, +S1, +S2. absent: Diastolic murmur, Gallop, Rubs, Systolic Murmur - GI/Abdominal Exam GI & Abdominal Exam: Soft. absent: Distended, Guarding, Rebound, Tenderness - Extremities Exam Additional comments: LLE ulcers - Neurological Exam Neurological exam: Alert - Psychiatric Exam Psychiatric exam: Normal Affect, Normal Mood - Skin Skin Exam: Dry, Intact, Normal Color, Warm Discharge Plan - Discharge Medications Prescriptions: Meropenem [Merrem IV] 250 mg IVPB Q12H 30 Days vial - Follow Up Plan Condition: STABLE Disposition: NURSING FACILITY MEDICAID CERT Instructions: Gastrointestinal Bleeding (DC), Dehydration (DC), Cellulitis (DC) Additional Instructions: 1. Return to [facility] 2. Continue IV antibiotics for 30 more days (Merrem and Linezolid, d/c ciprofloxacin) 3. Continue wound care 4. Return to ED if symptoms worsen Referrals: Sonny Sparsk MD [Primary Care Provider] - <Don Davey - Last Filed: 09/04/17 16:17> Provider - Provider Date of Admission: 09/03/17 14:09 Attending physician: Don Davey MD Primary care physician: Sonny Sparks MD Hospital Course - Lab Results Lab Results: Most Recent Lab Values WBC 9.7 10^3/ul (4.5-11.0) D 09/04/17 06:15 RBC 4.96 10^6/uL (3.5-6.1) 09/04/17 06:15 Hgb 13.2 g/dL (12.0-16.0) 09/04/17 06:15 Hct 43.6 % (36.0-48.0) 09/04/17 06:15 MCV 87.9 fl (80.0-105.0) 09/04/17 06:15 MCH 26.6 pg (25.0-35.0) 09/04/17 06:15 MCHC 30.3 g/dl (31.0-37.0) L 09/04/17 06:15 RDW 21.1 % (11.5-14.5) H 09/04/17 06:15 Plt Count 94 10^3/uL (120.0-450.0) L 09/04/17 06:15 Gran % 91.8 % (50.0-68.0) H 09/04/17 06:15 Lymph % (Auto) 4.6 % (22.0-35.0) L 09/04/17 06:15 [place] % (Auto) 3.2 % (1.0-6.0) 09/04/17 06:15 Eos % (Auto) 0.4 % (1.5-5.0) L 09/04/17 06:15 Baso % (Auto) 0.0 % (0.0-3.0) 09/04/17 06:15 Gran # 8.87 (1.4-6.5) H 09/04/17 06:15 Lymph # (Auto) 0.4 (1.2-3.4) L 09/04/17 06:15 [place] # (Auto) 0.3 (0.1-0.6) 05/03/18 06:15 Eos # (Auto) 0.0 (0.0-0.7) 09/04/17 06:15 Baso # (Auto) 0.00 K/mm3 (0.0-2.0) 09/04/17 06:15 Neutrophils % (Manual) 94 % (50.0-70.0) H 09/02/17 16:41 Band Neutrophils % 2 % (0-2) 09/02/17 16:41 Lymphocytes % (Manual) 3 % (22.0-35.0) L 09/02/17 16:41 Monocytes % (Manual) 1 % (1.0-6.0) 09/02/17 16:41 Toxic Granulation 2+ 09/02/17 16:41 Platelet Evaluation Normal (NORMAL) 09/02/17 16:41 Hypochromasia 2+ 09/02/17 16:41 Target Cells 2+ 09/02/17 16:41 Rouleaux 2+ 09/02/17 16:41 PT 26.2 SECONDS (9.4-12.5) H 09/02/17 16:41 INR 2.26 (0.93-1.08) H 09/02/17 16:41 APTT 47.1 Seconds (25.1-36.5) H 09/02/17 16:41 Sodium 143 mmol/L (132-148) 09/04/17 06:15 Potassium 3.6 mmol/L (3.6-5.0) 09/04/17 06:15 Chloride 108 mmol/L (98-107) H 09/04/17 06:15 Carbon Dioxide 24 mmol/L (21-33) 09/04/17 06:15 Anion Gap 15 (10-20) 09/04/17 06:15 BUN 60 mg/dL (7-21) H 09/04/17 06:15 Creatinine 1.3 mg/dl (0.7-1.2) H 09/04/17 06:15 Est GFR ( Amer) 47 09/04/17 06:15 Est GFR (Non-Af Amer) 39 09/04/17 06:15 POC Glucose (mg/dL) 122 mg/dL (65-110) H 09/04/17 11:04 Random Glucose 118 mg/dL (70-110) H 09/04/17 06:15 Calcium 7.8 mg/dL (8.4-10.5) L 09/04/17 06:15 Phosphorus 4.8 mg/dL (2.5-4.5) H 09/02/17 16:41 Magnesium 2.4 mg/dL (1.7-2.2) H 09/02/17 16:41 Total Bilirubin 1.7 mg/dL (0.2-1.3) H 09/04/17 06:15 AST 26 U/L (14-36) 09/04/17 06:15 ALT 36 U/L (7-56) 09/04/17 06:15 Alkaline Phosphatase 68 U/L (38-126) 09/04/17 06:15 Troponin I 0.02 ng/mL D 09/02/17 16:41 Total Protein 5.8 g/dL (5.8-8.3) 09/04/17 06:15 Albumin 2.7 g/dL (3.0-4.8) L 09/04/17 06:15 Globulin 3.1 gm/dL 09/04/17 06:15 Albumin/Globulin Ratio 0.9 (1.1-1.8) L 09/04/17 06:15 Procalcitonin 0.09 NG/ML (0.19-0.49) L 09/03/17 07:00 Blood Type A POSITIVE 09/02/17 16:41 Antibody Screen Negative 09/02/17 16:41 BBK History Checked Patient has bt 09/02/17 16:41 Attending/Attestation - Attestation I have personally seen and examined this patient.: Yes I have fully participated in the care of the patient.: Yes I have reviewed all pertinent clinical information, including history, physical exam and plan: Yes Notes (Text): 09/04/17 15:05 Attending note; Patient seen and examined with resident. Patient is a 82 year old female with history of atrial fibrillation on eliquis, hypothyroidism, chronic LLE cellulitis, COPD, pulmonary hypertension is admitted for nausea and vomiting/possible upper GI bleed. Patient has some dried blood in the mouth. Throat is clear. Hemoglobin is stable. GI evaluation appreciated. Currently on diet. Tolerating well. No diarrhea. No nausea or vomiting. Denies any abdominal pain. Currently on IV ciprofloxacin and Zyvox. ID evaluation appreciated. Leg Wound cultures grew MRSA, VRE, psudomonas and corynebacterium. Patient is on cipro and zyvox. Palliative care evaluation appreciated. Patient is considering palliative care. Patient will be transferred back to [facility]. patient will consider hospice care also at [facility]. Continue local wound care with podiatry. Prognosis is poor. Upon discharge patient will follow up with Dr Carr.
[2017-09-04 15:35] VITALS: BP 129/81; PULSE 60; TEMP 97.6; O2SAT 100
[2017-09-04] MEDS: Sodium Chloride 0.9% 1,000 ML IV SCH (16:20)
--- NOTE | 2017-09-04 18:49 | CP.PCM.PN ---
Subjective - Date & Time of Evaluation Date of Evaluation: 09/04/17 Time of Evaluation: 16:30 - Subjective Subjective: Infectious Disease Follow Up: September 04, 2017 82 yo female well known to me sent from [facility] for vomiting possible hemochezia. Patient with known left lower leg gangrene. Patient with increasing coughing over the past 2 weeks and had a short hospitalization at [facility] discharged a few days ago. Poor appetite. No reports of fevers or chills. Patient is known to be a poor historian. Chronically ill and appears to be deteriorating to me. On Meropenem and Zyvox. Very limited options. Poor short term survival. Objective - Vital Signs/Intake and Output Vital Signs (last 24 hours): Temp Pulse Resp BP Pulse Ox 97.6 F 60 20 129/81 100 09/04/17 14:00 09/04/17 14:00 09/04/17 14:00 09/04/17 14:00 09/04/17 14:00 Intake and Output: 09/04/17 09/04/17 06:59 18:59 Intake Total 240 Balance 240 - Medications Medications: Current Medications Albuterol/Ipratropium (Duoneb 3 Mg/0.5 Mg (3 Ml) Ud) 3 ml IH Q2H PRN PRN Reason: Shortness of Breath Arformoterol Tartrate (Brovana) 15 mcg IH BID [facility] Last Admin: 09/04/17 07:53 Dose: 15 mcg Ascorbic Acid (Vitamin C 500 Mg Tab) 500 mg PO DAILY [facility] Last Admin: 09/04/17 10:21 Dose: 500 mg Budesonide (Pulmicort Respules) 0.5 mg IH BID [facility] Last Admin: 09/04/17 07:53 Dose: 0.5 mg Ferrous Sulfate (Feosol) 324 mg PO BID [facility] Last Admin: 09/04/17 18:31 Dose: 324 mg Sodium Chloride (Sodium Chloride 0.9%) 1,000 mls @ 70 mls/hr IV .[id number] [facility] Last Admin: 09/04/17 16:20 Dose: 70 mls/hr Linezolid (Zyvox 600mg/300ml D5w) 600 mg in 300 mls @ 300 mls/hr IVPB Q12 [facility] Last Admin: 09/04/17 10:21 Dose: 300 mls/hr Meropenem 250 mg/ Sodium (Chloride) 100 mls @ 100 mls/hr IVPB Q12H [facility] Last Admin: 09/04/17 16:20 Dose: 100 mls/hr Insulin Human Regular (Humulin R Med) 0 units SC ACHS [facility] PRN Reason: Protocol Last Admin: 09/04/17 18:31 Dose: Not Given Montelukast Sodium (Singulair) 10 mg PO HS [facility] Last Admin: 09/03/17 22:02 Dose: 10 mg Multi-Ingredient Cream (Hydrocerin Cream) 0 ea TOP BID [facility] Last Admin: 09/04/17 18:32 Dose: 1 applic Nystatin (Nystatin Oral Susp) 5 ml PO QID [facility] Last Admin: 09/04/17 18:34 Dose: 5 ml Nystatin (Nystop Topical Powder) 0 gm TOP TID [facility] Last Admin: 09/04/17 18:36 Dose: 1 applic Ondansetron HCl (Zofran Inj) 4 mg IVP Q6H PRN PRN Reason: Nausea/Vomiting Oxycodone/Acetaminophen (Percocet 5/325 Mg Tab) 1 tab PO BID [facility] Stop: 09/06/17 10:01 Last Admin: 09/04/17 18:34 Dose: 1 tab Pantoprazole Sodium (Protonix Inj) 40 mg IVP Q12 [facility] Last Admin: 09/04/17 10:17 Dose: 40 mg Pregabalin (Lyrica) 50 mg PO BID [facility] Last Admin: 09/04/17 18:32 Dose: 50 mg Vitamin B Complex/Vit C/Folic Acid (Nephro-Sheeren) 1 tab PO DAILY [facility] Last Admin: 09/04/17 10:20 Dose: 1 tab - Labs Labs: 09/04/17 06:15 09/04/17 06:15 PT 26.2 SECONDS (9.4-12.5) H 09/02/17 16:41 INR 2.26 (0.93-1.08) H 09/02/17 16:41 APTT 47.1 Seconds (25.1-36.5) H 09/02/17 16:41 - Constitutional Appears: Chronically Ill - Head Exam Head Exam: ATRAUMATIC, NORMOCEPHALIC - Eye Exam Eye Exam: EOMI, PERRL Pupil Exam: NORMAL ACCOMODATION, PERRL - ENT Exam ENT Exam: Mucous Membranes Moist, Normal External Ear Exam, TM's Normal Bilaterally Additional comments: oral thrush - Neck Exam Neck Exam: Full ROM, Normal Inspection - Respiratory Exam Respiratory Exam: Decreased Breath Sounds. absent: Rales, Rhonchi, Wheezes - Cardiovascular Exam Cardiovascular Exam: REGULAR RHYTHM, RRR, +S1, +S2 - GI/Abdominal Exam GI & Abdominal Exam: Soft, Normal Bowel Sounds. absent: Distended, Tenderness - Extremities Exam Additional comments: Multiple LLE ulcers, chronic skin changes, areas of gangrene and mottling. - Neurological Exam Neurological Exam: Alert, Awake, CN II-XII Intact Additional comments: AAO x 1-2 - Psychiatric Exam Additional comments: Confused, Lethargic, Distant. - Skin Additional comments: As above. Assessment and Plan - Assessment and Plan (Free Text) Assessment: 82 yo female with multiple medical issues presenting from [facility] for vomiting and a question of hematochezia. The patient appears more cachetic to me compared to when I saw her last year. The patient still has the same issues with the left leg. Amputation of the left leg remains the recommendation for care from her prior hospitalizations of the past 2 years. In the past, she was able to tolerate meropenem after a desensitization protocol was followed. On Cipro and Zyvox as part of the patient's regimen for the multiple organisms grown on cultures from last hospitalization. Cultures from last hospitalization a week ago showing Pseudomonas, VRE, and Staph Aureus (MRSA). Continue on Meropenem and Zyvox. No reaction seen with Meropenem so far. Poor overall prognosis for the patient. The patient has stated that she wants to remain Full Code status. intermediate survival is extremely poor. Potential palliative care today. Supportive care. Thank you for allowing me to participate in the care of the patient, we will follow with you.
== END 2017-09-04 22:27 | DRG 368 ==
LOC: ED 14:47 → ERH 18:04 → 5RSO 21:53 → OBSVTOIN 09-03 14:09
PROVIDERS: ADMIT Internal Medicine; ATTEND Internal Medicine
DX: K22.6 Gastro-esophageal laceration-hemorrhage syndrome (principal); J18.9 Pneumonia, unspecified organism; K21.0 Gastro-esophageal reflux disease with esophagitis; B37.0 Candidal stomatitis; J44.0 Chronic obstructive pulmonary disease with (acute) lower respiratory infection; L03.116 Cellulitis of left lower limb; L97.329 Non-pressure chronic ulcer of left ankle with unspecified severity; N17.9 Acute kidney failure, unspecified; E11.52 Type 2 diabetes mellitus with diabetic peripheral angiopathy with gangrene; E03.9 Hypothyroidism, unspecified; E11.22 Type 2 diabetes mellitus with diabetic chronic kidney disease; E11.622 Type 2 diabetes mellitus with other skin ulcer; E86.0 Dehydration; I12.9 Hypertensive chronic kidney disease with stage 1 through stage 4 chronic kidney disease, or unspecified chronic kidney disease; I87.2 Venous insufficiency (chronic) (peripheral); K44.9 Diaphragmatic hernia without obstruction or gangrene; N18.9 Chronic kidney disease, unspecified; N31.9 Neuromuscular dysfunction of bladder, unspecified; I48.2 Chronic atrial fibrillation; I45.81 Long QT syndrome; Z88.0 Allergy status to penicillin; Z88.2 Allergy status to sulfonamides; Z91.018 Allergy to other foods; I27.20 Pulmonary hypertension, unspecified; Z51.5 Encounter for palliative care; Z79.01 Long term (current) use of anticoagulants; Z99.3 Dependence on wheelchair; Z89.612 Acquired absence of left leg above knee